=== PATIENT | female | born 1985 | race Caucasian/White ===

== ENCOUNTER → 2022-10-21 | Outpatient (OUT) | payer MEDICAID, SELFPAY ==
[2022-10-22 07:08] LABS: Vitamin D, 25-Hydroxy 67.2 ng/mL (30.0-100.0)
== END ==
LOC: LAB 10:43
PROVIDERS: PCP Family Medicine; Visit Provider Family Medicine
DX: M85.80 Other specified disorders of bone density and structure, unspecified site (principal)
CPT/HCPCS: 36415; 82306

== ENCOUNTER 2022-11-27 07:01 | Outpatient (OUT) | payer MEDICAID, SELFPAY ==
[2022-11-27 15:49] LABS: Valproic Acid 100.8 ug/mL (50.0-100.0)
== END 2022-11-27 07:02 | disposition home or self-care (01) ==
LOC: LAB 07:01
PROVIDERS: PCP Family Medicine; Visit Provider Family Medicine
DX: Z79.899 Other long term (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 (principal)
CPT/HCPCS: 36415; 80164

== ENCOUNTER 2023-08-19 16:03 | Outpatient (OUT) | payer MEDICAID, SELFPAY ==
[2023-08-19 17:09] LABS: Valproic Acid 52.6 ug/mL (50.0-100.0)
[2023-08-21 05:08] LABS: Carbamazepine(Tegretol),S 8.5 ug/mL (4.0-12.0); Lithium (Eskalith(R)), Serum <0.1 mmol/L (0.5-1.2)
== END 2023-08-19 16:04 | disposition home or self-care (01) ==
LOC: LAB 16:04
PROVIDERS: PCP Family Medicine; Visit Provider Family Medicine
DX: R11.2 Nausea with vomiting, unspecified (principal); G40.909 Epilepsy, unspecified, not intractable, without status epilepticus
CPT/HCPCS: 36415; 80156; 80164; 80178

== ENCOUNTER 2023-12-08 06:31 | Outpatient (OUT) | payer MEDICAID, SELFPAY ==
[2023-12-09 07:10] LABS: Carbamazepine(Tegretol),S 6.6 ug/mL (4.0-12.0)
== END 2023-12-08 06:32 | disposition home or self-care (01) ==
LOC: LAB 06:31
PROVIDERS: PCP Family Medicine; Visit Provider Family Medicine
DX: Z79.899 Other long term (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 (principal)
CPT/HCPCS: 36415; 80156

== ENCOUNTER 2023-12-28 06:38 | Outpatient (OUT) | payer MEDICAID, SELFPAY ==
--- OUTSIDE RECORDS SUMMARY | 2023-12-28 06:44 | XMS_ITS | CCD ---
Author Organization [facility] Care Team Providers Care Master Sonar Technician Name Role Phone Rm Goldman DDS Unavailable Vitor ROLON-CAROLE, Mony Unavailable KHRIS, DR BALJIT Whaley Consulting Unavailable PINEDO, DR BALJIT Whaley Primary Care Unavailable PINEDO, DR BALJIT Whaley Admitting Unavailable PINEDO, DR BALJIT Whaley Attending Unavailable PINEDO, DR BALJIT Whaley Consulting Unavailable PINEDO, DR BALJIT Whaley Primary Care Unavailable PINEDO, DR BALJIT Whaley Admitting Unavailable PINEDO, DR BALJIT Whaley Attending Unavailable PINEDO, DR BALJIT Whaley Attending Unavailable PINEDO, DR BALJIT Whaley Consulting Unavailable PINEDO, DR BALJIT Whaley Primary Care Unavailable PINEDO, DR BALJIT Whaley Admitting Unavailable PINEDO, DR BALJIT Whaley Consulting Unavailable PINEDO, DR BALJIT Whaley Primary Care Unavailable PINEDO, DR BALJIT Whaley Admitting Unavailable PINEDO, DR BALJIT Whaley Attending Unavailable PINEDOBALJIT Primary Care Physician Moarmando Mohamad A. Admitting Unavailable Mouchli, Mohamad A. Attending Unavailable Mouchli, Mohamad A. Referring Unavailable Mouchli, Mohamad A. Admitting Unavailable Mouchli, Mohamad A. Attending Unavailable Moarmando, Mohamad A. Referring Unavailable PINEDOBALJIT Admitting Unavailable PINEDOBALJIT Attending Unavailable PINEDO, BALJIT Attending Unavailable PINEDO, BALJIT Admitting Unavailable Mouchli, Mohamad A. Attending Unavailable Rm Goldman DDS Unavailable Vitor ROLON-MACHINE LAY OUT WORKER, Mony Unavailable PROVIDER, UNKNOWN Attending Unavailable PROVIDER, UNKNOWN Admitting Unavailable VÍCTOR GOLDBERG Attending Unavailable PROVIDER, UNKNOWN Admitting Unavailable Allergies Allergy Classification Reported Allergen(s) Allergy Type Date of Onset Reaction(s) Facility (1 source) No Known Medication Allergies; Translations: [No Known Medication Allergies] Propensity to adverse reactions (disorder) [facility] Repository (2 sources) Diazepam; Translations: [DIAZEPAM] Propensity to adverse reactions to drug [address] [place] [address] (2 sources) diphenhydrAMINE; Translations: [DIPHENHYDRAMINE ] Drug Allergy 4 [facility] (2 sources) trichloroacetald ehyde; Translations: [CHLORAL HYDRATE] Drug Allergy [address] [place] [address] Medications Current Medications Medication Drug Class(es) Dates Sig (Normalized) Sig (Original) alendronic acid 35 mg oral tablet (3 sources) Bisphosphonate take 1 tablet by mouth every week alendronate (FOSAMAX) 35 MG tablet Take 35 mg by mouth once weekly. Active busPIRone hydrochloride 15 mg oral tablet (1 source) take 1 tablet by mouth twice daily busPIRone (BUSPAR) 15 MG tablet Take 15 mg by mouth 2 times daily. Active cabergoline 0.5 mg oral tablet (1 source) Ergot Derivative cabergoline (DOSTINEX) 0.5 MG tablet Take 0.5 mg by mouth. Active Calcium Carbonate (6 sources) Start: 09-10-2023 Maalox Antacid Barrier mg, Chewed, Daily, Refills(s) 0 Start Date: 09/10/23 Status: Ordered Oyster Shell 500 MG TABS Take by mouth. Active calcium polycarbophil (3 sources) take 20 [oz_av] by m outh once daily at bedtime Calcium Polycarbophil (FIBER-LAX ORAL) Indications: daily at bedtime with 20 oz of water Take by mouth Indications: daily at bedtime with 20 oz of water. Active take 20 [oz_av] by m outh once daily at bedtime Calcium Polycarbophil (FIBER-LAX ORAL) Indications: daily at bedtime with 20 oz of water Take by mouth Indications: daily at bedtime with 20 oz of water. 0 Active carBAMazepine (4 sources) Mood Stabilizer Start: 09-10-2023 carbamazepine Oral, TID, Refills(s) 0, Seizure Start Date: 09/10/23 Status: Ordered Start: 09-10-2023 carbamazepine Refills(s) 0 Start Date: 09/10/23 Status: Ordered carbamazepine (T EGRETOL) 200 MG tablet Take 100 mg by mouth 3 times daily. Active chlorhexidine gluconate 1.2 mg/ml mouthwash (6 sources) Start: 09-10-2023 take 0.018 g by mouth twice daily chlorhexidine 0.12% mucous membrane liquid 0.018 gm, 15 mL, Oral, BID, 480 mL, Refill(s) 0 Start Date: 09/10/23 Status: Ordered take 15 mL by mouth twice daily chlorhexidine (PERIDEX) 0.12 % oral solution Take 15 mL by mouth 2 times daily. Active chlorproMAZINE hydrochloride 50 mg oral tablet (1 source) Phenothiazine take 50 mg by mouth at bedtime CHLORPROMAZINE HCL ORAL Take 50 mg by mouth at bedtime. Active cholecalciferol 0.025 mg oral tablet (3 sources) Vitamin D Cholecalciferol (VITAMIN D) 1000 units TABS Take by mouth. Active clonazePAM 0.5 mg oral tablet (1 source) Benzodiazepine take 1 tablet by mouth twice daily clonazePAM (KlonoPIN) 0.5 MG tablet Take 0.5 mg by mouth 2 times daily. Active cloNIDine hydrochloride 0.1 mg oral tablet (1 source) Central alpha-2 Adrenergic Agonist take 1 tablet by mouth twice daily cloNIDine (CATAPRES) 0.1 MG tablet Take 0.1 mg by mouth 2 times daily. Active docusate sodium 100 mg oral capsule (3 sources) take 2 capsules by mouth three times daily docusate sodium (COLACE) 100 MG capsule Indications: take 2 capsules by mouth 3 times daily Take 100 mg by mouth Indications: take 2 capsules by mouth 3 times daily. Active doxazosin 4 mg oral tablet (1 source) alpha-Adrenergic Gaby take 1 tablet by mouth once daily doxazosin (CARDURA) 4 MG tablet Take 4 mg by mouth daily. Active famotidine 20 mg oral tablet (11 sources) Histamine-2 Receptor Antagonist Start: take 20 mg by mouth once daily Pepcid 20 mg, Oral, Daily, Refills(s) 0, Control of stomach acid Start Date: 09/10/23 Status: Ordered Start: 09-10-2023 Pepcid Refills (s) 0 Start Date: 09/10/23 Status: Ordered Start: 11-29-2009 famotidine Ref ills(s) 0 Start Date: 11/29/09 Status: Ordered ferrous sulfate (8 sources) Start: 11-29-2009 ferrous sulfat e Oral, Refills(s) 0 Start Date: 11/29/09 Status: Ordered take 1 tablet by mouth once lashell y ferrous sulfate 325 (65 Fe) MG tablet Take 325 mg by mouth daily. Active Fiber (5 sources) Start: 11-29-2009 Fiber Lax Oral , Refills(s) 0 Start Date: 11/29/09 Status: Ordered Start: 11-29-2009 Fiber Lax Refi lls(s) 0 Start Date: 11/29/09 Status: Ordered guanFACINE 1 mg oral tablet (1 source) Central alpha-2 Adrenergic Agonist take 1 tablet by mouth at bedtime guanfacine (TENEX) 1 MG tablet Take 1 mg by mouth at bedtime. Active iloperidone 2 mg oral tablet (1 source) Atypical Antipsychotic Iloperidone (Fanapt) 2 MG TABS Take by mouth. Active lamoTRIgine 100 mg oral tablet (3 sources) Mood Stabilizer, Anti-epileptic Agent take 1 tablet by mouth three times daily lamoTRIgine (LAMICTAL) 100 MG tablet Indications: take one tablet by mouth 3 times daily Take 100 mg by mouth Indications: take one tablet by mouth 3 times daily. Active Levetiracetam (9 sources) Start: 09-10-19 levetiracetam Refills(s) 0 Start Date: 09/10/23 Status: Ordered Start: 11-29-2009 levetiracetam Oral, BID, Refills(s) 0, Seizure Start Date: 11/29/09 Status: Ordered Start: 11-29-2009 levetiracetam Refills(s) 0 Start Date: 11/29/09 Status: Ordered take 1 tablet by erica th twice daily levETIRAcetam (KEPPRA) 500 MG tablet Take 500 mg by mouth 2 times daily. Active levothyroxine sodium 0.075 mg oral tablet (4 sources) l-Thyroxine take 1 tablet by mouth once daily in the evening levothyroxine (SYNTHROID) 75 MCG tablet Take 75 mcg by mouth daily. Take at 8 pm Active take 1 tablet by mouth once lashell y levothyroxine (SYNTHROID) 112 MCG tablet Take 112 mcg by mouth daily. Active linaclotide 0.29 mg oral capsule (6 sources) Guanylate Cyclase-C Agonist Start: 09-10-2023 take 1 ug by mouth once daily Linzess 290 mcg oral capsule mcg cap(s), Oral, Daily, Refills(s) 0 Start Date: 09/10/23 Status: Ordered Start: 10-17-2020 take 1 capsule by [facility] once daily Linzess 145 MCG CAPS capsule Take 145 mcg by mouth daily. 10/17/2020 Active Loratadine (8 sources) Start: 11-29-2009 loratadine 10 mg, Refills(s) 0 Start Date: 11/29/09 Status: Ordered take 1 tablet by mouth once lashell y loratadine (CLARITIN) 10 MG tablet Take 10 mg by mouth daily. Active lurasidone (3 sources) Atypical Antipsychotic Start: 09-10-2023 lurasidone Oral, Daily, Refills(s) 0 Start Date: 09/10/23 Status: Ordered 1 ml medroxyPROGESTERone acetate 150 mg/ml injection (1 source) Progestin medroxyPROGESTER one (Depo-Provera) 150 MG/ML injection Inject 150 mg into the muscle once. Active metoprolol tartrate 100 mg oral tablet (1 source) beta-Adrenergic Gaby take 1 tablet by mouth twice daily metoprolol (LOPRESSOR) 100 MG tablet Take 100 mg by mouth 2 times daily. Active montelukast (6 sources) Leukotriene Receptor Antagonist Start: 09-10-2023 montelukast Daily, Refills(s) 0 Start Date: 09/10/23 Status: Ordered take 1 tablet by mouth once lashell y montelukast (SINGULAIR) 10 MG tablet Take 10 mg by mouth daily. Active Naltrexone (8 sources) Opioid Antagonist Start: 11-29-2009 naltrexone R efills(s) 0 Start Date: 11/29/09 Status: Ordered take 2 tablets by mouth twice da dany naltrexone 50 MG tablet Indications: take 2 tablets twice a day Take 50 mg by mouth daily Indications: take 2 tablets twice a day. Active Zofran (4 sources) Serotonin-3 Receptor Antagonist Start: 09-10-2023 Zofran Refills(s) 0 Start Date: 09/10/23 Status: Ordered take 1 tablet by erica th every twelve hours as needed for nausea ondansetron (Zofran) 4 MG tablet Take 4 mg by mouth every 12 hours as needed for Nausea. Active 24 hr paliperidone 3 mg extended release oral tablet (1 source) Atypical Antipsychotic take 2 tablets by mouth once daily paliperidone (INVEGA) 3 MG 24 hour tablet Take 6 mg by mouth daily. Active pantoprazole 40 mg extended release oral tablet (3 sources) Proton Pump Inhibitor Start: 09-10-19 pantoprazole 40 mg, Oral, Refills(s) 0, Control of stomach acid Start Date: 09/10/23 Status: Ordered Start: 09-10-2023 pantoprazole R efills(s) 0 Start Date: 09/10/23 Status: Ordered pregabalin (6 sources) Start: 09-10-2023 pregabalin Ora l, TID, Refills(s) 0, Neuropathy Start Date: 09/10/23 Status: Ordered Start: 09-10-2023 pregabalin Ora l, Refills(s) 0 Start Date: 09/10/23 Status: Ordered take 1 capsule by mo uth three times daily pregabalin (LYRICA) 75 MG capsule Take 75 mg by mouth 3 times daily. Active Phenergan (3 sources) Phenothiazine Start: 09-10-2023 Phenergan Oral , PRN as needed for nausea/vomiting, Refills(s) 0 Start Date: 09/10/23 Status: Ordered Start: 09-10-2023 Phenergan Refi lls(s) 0 Start Date: 09/10/23 Status: Ordered Risperidone (11 sources) Atypical Antipsychotic Start: 11-29-2009 risperi done Oral, BID, Refills(s) 0 Start Date: 11/29/09 Status: Ordered Start: 11-29-2009 risperidone BI D, Refills(s) 0 Start Date: 11/29/09 Status: Ordered take 1 tablet by erica th twice daily at bedtime risperiDONE (RISPERDAL) 0.5 MG tablet Indications: take one tablet by mouth twice a day at bedtime Take 0.5 mg by mouth 2 times daily Indications: take one tablet by mouth twice a day at bedtime. 1 tab noon and 1 tab hs Active take 1 tablet by erica th three times daily risperiDONE (RISPERDAL) 1 MG tablet Indications: take one tablet by mouth 3 times daily Take 1 mg by mouth 2 times daily Indications: take one tablet by mouth 3 times daily. Active sennosides, MCC (6 sources) Start: 09-10-2023 senna Oral, BI D, Refills(s) 0, Constipation Start Date: 09/10/23 Status: Ordered Start: 09-10-2023 senna Refills( s) 0 Start Date: 09/10/23 Status: Ordered take 1 tablet by erica once daily senna (SENNA-TABS) 8.6 MG TABS tablet Indications: daily at 0800 and 2000 Take 1 Tablet by mouth Indications: daily at 0800 and 1999. Active sertraline 100 mg oral tablet (1 source) Serotonin Reuptake Inhibitor take 1 tablet by mouth once daily sertraline (ZOLOFT) 100 MG tablet Take 100 mg by mouth daily. Active traZODone hydrochloride 100 mg oral tablet (1 source) Serotonin Reuptake Inhibitor take 1 tablet by mouth at bedtime trazodone (DESYREL) 100 MG tablet Take 100 mg by mouth at bedtime. Active Depakote (11 sources) Mood Stabilizer, Anti-epileptic Agent Start: 0 Depakote Oral, BID, Refills(s) 0, Seizure Start Date: 11/29/09 Status: Ordered Start: 11-29-2009 Depakote Oral, TID, Refills(s) 0 Start Date: 11/29/09 Status: Ordered take 2 capsules by m outh once daily in the morning divalproex (DEPAKOTE SPRINKLE) 125 MG CSDR capsule Indications: take 2 capsules by mouth every morning Take 125 mg by mouth Indications: take 2 capsules by mouth every morning. Active take 2 tablets by mo uth twice daily at bedtime divalproex (DEPAKOTE) 500 MG enteric coated tablet Indications: take one tablet in the morning and 2 tablets at bedtime Take 500 mg by mouth 2 times daily Indications: take one tablet in the morning and 2 tablets at bedtime. 1 tab am and 2 tab hs Active VITAMIN D ORAL (3 sources) take 1000 [IU] by mo uth once daily VITAMIN D ORAL Take 1,000 Units by mouth daily. Active take 1000 [IU] by mouth once mackenzie ly VITAMIN D ORAL Take 1,000 Units by mouth daily. 0 Active Vitamin D3 (3 sources) Start: 09-10-2023 Vitamin D3 Ora l, Daily, Refills(s) 0, Prophylaxis Start Date: 09/10/23 Status: Ordered Start: 09-10-2023 Vitamin D3 Ref ills(s) 0 Start Date: 09/10/23 Status: Ordered Problems Active Problems Problem Classification Problem Date Documented Da te Episodic/Chronic Attention-deficit, conduct, and disruptive behavior disorders (5 sources) Disruptive behavior disorder 07-29-2013 Chronic Biliary tract disease (5 sources) Biliary calculus 07-29-2013 Episodic Developmental disorders (5 sources) Severe intellectual disability 07-29-2013 Chronic Disorders of teeth and jaw (7 sources) Dental caries; Translations: [Dental caries, unspecified] Onset: 02-09-2019 10-12-2020 Episodic Disorders usually diagnosed in infancy, childhood, or adolescence (5 sources) Autism spectrum disorder 07-29-2013 Chronic Epilepsy; convulsions (4 sources) Epilepsy, unspecified, not intractable, without status epilepticus; Translations: [EPILEPSY UNS NOT INTRACT W/O SE] Onset: 04-29-2022 Chronic Epilepsy; convulsions (5 sources) Seizure disorder 07-29-2013 Episodic Impulse control disorders, NEC (5 sources) Impulse control disorder 07-29-2013 Chronic Mood disorders (1 source) Bipolar disorder, unspecified; Translations: [BIPOLAR DISORDER UNSPECIFIED] Onset: 05-03-2022 Chronic Nausea and vomiting (1 source) Nausea and vomiting; Translations: [Nausea with vomiting, unspecified] Onset: 09-10-2023 Episodic Open wounds of extremities (4 sources) Unspecified open wound, left foot, initial encounter; Translations: [UNS OPEN WOUND LEFT FOOT INITIAL] Onset: 08-19-2022 Episodic Osteoporosis (5 sources) Osteoporosis 07-29-2013 Chronic Other aftercare (5 sources) Other shelter (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; Translations: [OTH [facility] CURRENT DRUG THERAPY] Onset: 05-03-2022 Episodic Other gastrointestinal disorders (5 sources) Constipation 07-29-2013 Episodic Other gastrointestinal disorders (1 source) Other constipation; Translations: [Other constipation] Onset: 09-10-2023 Episodic Other nutritional; endocrine; and metabolic disorders (1 source) Body mass index 30+ - obesity; Translations: [Body mass index (BMI) 31.0-31.9, adult] 12-26-2023 Chronic Other nutritional; endocrine; and metabolic disorders (1 source) Body mass index (BMI) 31.0-31.9, adult; Translations: [Body mass index (BMI) 31.0-31.9, adult] Onset: 12-25-2023 Chronic Other nutritional; endocrine; and metabolic disorders (1 source) Abnormal weight loss; Translations: [Abnormal weight loss] Onset: 09-10-2023 Episodic Other upper respiratory disease (5 sources) Seasonal allergy 11-29-2009 Chronic Paralysis (8 sources) Spastic cerebral palsy; 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] Onset: 06-17-2002 02-03-2019 Chronic Residual codes; unclassified (1 source) Early satiety; Translations: [Early satiety] Onset: 09-10-2023 Episodic Thyroid disorders (1 source) Hypothyroidism, unspecified; Translations: [HYPOTHYROIDISM UNSPECIFIED] Onset: 09-22-2022 Chronic Unclassified (5 sources) Bipolar (qualifier value) 08-26-2010 Past or Other Problems Problem Classification Problem Date Documented Date Episodic/Chronic Other aftercare (2 sources) Surgical follow-up; Translations: [Encounter for follow-up examination after completed treatment for conditions other than malignant neoplasm] Onset: 10-04-2002 07-22-2022 Episodic Other connective tissue disease (2 sources) Finding of thigh; Translations: [Other specified disorders of muscle] Onset: 12-09-2010 07-22-2022 Episodic Other nervous system disorders (2 sources) Peerless gait; Translations: [Other abnormalities of gait and mobility] Onset: 12-09-2010 07-22-2022 Episodic Results Test Name Value Interpretation Reference Range Facility BASIC METABOLIC PANELon 08-0 Anion gap [Moles/Vol] 13 mmol/L Normal 10-20 [facility] Comment on above: Performed By: #### C H8 #### [facility] [address], [place], Calcium [Mass/Vol] 9.0 mg/dL Normal 8.6-10.3 [facility] Comment on above: Performed By: #### C H8 #### [facility] [address], [place], Chloride [Moles/Vol] 102 mmol/L Normal 98-107 [facility] Comment on above: Performed By: #### C H8 #### [facility] [address], [place], CO2 [Moles/Vol] 23 mmol/L Normal 21-31 [facility] Comment on above: Performed By: #### C H8 #### [facility] [address], [place], Creatinine [Mass/Vol] 0.36 mg/dL Low 0.60-1.20 [facility] Comment on above: Performed By: #### C H8 #### [facility] [address], [place], ESTIMATED GFR (CKD-EPI) 133 mL/min/1.73sqm Normal >=60 [facility] Comment on above: Result Comment: 2020 CKD EPI Equation using Creatinine without Race Comment: Estimated glomerular filtration rate (eGFR) is calculated without a race coefficient. Values should be interpreted in the context of the patient's full clinical presentation. Reference: 1. Yonny C, Rich M, Melissa ATKINSON, et al.. A Unifying Approach for GFR Estimation: Recommendations of the NKF-ASN Task Force on Reassessing the Inclusion of Race in Diagnosing Kidney Disease. [place] Journal of Kidney Diseases 2021;79(2):268-88.e1. 2. N Engl J Med 2020 Vol. 385 Issue 19 Pages [id number] Performed By: #### C H8 #### [facility] [address], [place], Glucose [Mass/Vol] 85 mg/dL Normal 74-109 [facility] Comment on above: Performed By: #### C H8 #### [facility] [address], [place], Potassium [Moles/Vol] 4.4 mmol/L Normal 3.5-5.0 [facility] Comment on above: Performed By: #### C H8 #### [facility] [address], [place], Sodium [Moles/Vol] 134 mmol/L Low 136-145 [facility] Comment on above: Performed By: #### C H8 #### [facility] [address], [place], Urea nitrogen [Mass/Vol] 7 mg/dL Normal 7-25 [facility] Comment on above: Performed By: #### C H8 #### [facility] [address], [place], Basic metabolic 2000 panelon 12-25-2023 Anion gap [Moles/Vol] 13 mmol/L 10 - 20 [facility] Calcium [Mass/Vol] 9.0 mg/dL 8.6 - 10. 3 mg/dL [facility] Chloride [Moles/Vol] 102 mmol/L 98 - 10 7 mmol/L [facility] CO2 [Moles/Vol] 23 mmol/L 21 - 31 mmol/L [facility] Creatinine [Mass/Vol] 0.36 mg/dL Low 0.60 - 1.20 mg/dL [facility] GFR/1.73 sq M.predicted CKD-EPI (S/P/Bld) [Vol rate/Area] 133 - PINF [facility] Comment on above: 2020 CKD EPI Equatio n using Creatinine without Race Comment: Estimated glomerular filtration rate (eGFR) is calculated without a race coefficient. Values should be interpreted in the context of the patient's full clinical presentation. Reference: 1. Yonny C, Rich M, Melissa DC, et al.. A Unifying Approach for GFR Estimation: Recommendations of the NKF-ASN Task Force on Reassessing the Inclusion of Race in Diagnosing Kidney Disease. [place] Journal of Kidney Diseases 2021;79(2):268-88.e1. 2. N Engl J Med 2020 Vol. 385 Issue 19 Pages 6064-3362 Glucose [Mass/Vol] 85 mg/dL 74 - 109 mg/dL [facility] Interpretation and review of laboratory results Abnormal [facility] Potassium [Moles/Vol] 4.4 mmol/L 3.5 - 5.0 mmol/L [facility] Sodium [Moles/Vol] 134 mmol/L Low 136 - 145 mmol/L [facility] Urea nitrogen [Mass/Vol] 7 mg/dL 7 - 25 mg/dL [facility] CBC panel Auto (Bld)on 12-24 Erythrocyte distribution width (RBC) [Ratio] 16.1 % High 11.5 - 14.5 % [facility] Hematocrit (Bld) [Volume fraction] 33.5 % Low 36.0 - 46.0 % [facility] Hemoglobin (Bld) [Mass/Vol] 10.8 g/dL Low 12.0 - 15.0 g/dL [facility] Interpretation and review of laboratory results Abnormal [facility] MCH (RBC) [Entitic mass] 31.1 pg 26. 0 - 34.0 pg [facility] MCHC (RBC) [Mass/Vol] 32.3 g/dL 32.0 - 35.9 g/dL [facility] MCV (RBC) [Entitic vol] 96 fL 80 - 100 fL [facility] Platelet mean volume (Bld) [Entitic vol] 9.3 fL 7.5 - 11.2 fL [facility] Platelets (Bld) [#/Vol] 425 10*3/uL High 150 - 400 K/uL [facility] RBC (Bld) [#/Vol] 3.48 10*6/uL Low [facility] WBC (Bld) [#/Vol] 5.3 10*3/uL 4.5 - 11.5 K/uL [facility] COMPLETE BLOOD COUNTon 12-24 Erythrocyte distribution width (RBC) [Ratio] 16.1 % High 11.5-14.5 [facility] Comment on above: Performed By: #### C BC #### [facility] [address] [place] [address], Hematocrit (Bld) [Volume fraction] 33.5 % Low 36.0-46.0 [facility] Comment on above: Performed By: #### C BC #### [facility] [address] [place] [address], Hemoglobin (Bld) [Mass/Vol] 10.8 g/dL Low 12.0-15.0 [facility] Comment on above: Performed By: #### C BC #### [facility] [address] [place] [address], MCH (RBC) [Entitic mass] 31.1 pg Normal 26.0-34.0 [facility] Comment on above: Performed By: #### C BC #### [facility] [address], [place], MCHC (RBC) [Mass/Vol] 32.3 g/dL Normal 32.0-35.9 [facility] Comment on above: Performed By: #### C BC #### [facility] [address], [place], MCV (RBC) [Entitic vol] 96 fL Normal 80-100 [facility] Comment on above: Performed By: #### C BC #### [facility] [address], [place], Platelet mean volume (Bld) [Entitic vol] 9.3 fL Normal 7.5-11.2 [facility] Comment on above: Performed By: #### C BC #### [facility] [address], [place], Platelets (Bld) [#/Vol] 425 10*3/uL High 150-400 [facility] Comment on above: Performed By: #### C BC #### [facility] [address], [place], RBC (Bld) [#/Vol] 3.48 10*6/uL Low 4.00-5.20 [facility] Comment on above: Performed By: #### C BC #### [facility] [address], [place], WBC (Bld) [#/Vol] 5.3 10*3/uL Normal 4.5-11.5 [facility] Comment on above: Performed By: #### C BC #### [facility] [address], [place], Patient Instructionson 12-24 Bookkeeping Clerk Authentication Interface Message Text On the morning of your surgery, please take only the following medications, with a small sip of water: levothyroxine (SYNTHROID) 112 MCG tablet metoprolol (LOPRESSOR) 100 MG tablet paliperidone (INVEGA) 3 MG 24 hour tablet sertraline (ZOLOFT) 100 MG tablet ondansetron (Zofran) 4 MG tablet-- as needed clonazePAM (KlonoPIN) 0.5 MG tablet cloNIDine (CATAPRES) 0.1 MG tablet doxazosin (CARDURA) 4 MG tablet Iloperidone (Fanapt) 2 MG TABS busPIRone (BUSPAR) 15 MG tablet cabergoline (DOSTINEX) 0.5 MG tablet carbamazepine (TEGRETOL) 200 MG tablet Do not take any Aspirin after 12/30. Do not take any Ibuprofen, Aleve, Advil, or Motrin or any other NSAIDS after 01/03. May take over the counter Acetaminophen (Tylenol) as needed for pain Please hold all Vitamin E, [place] 3, fish oil and herbal supplements for 1 week prior to surgery Please hold Naltrexone 3 days prior to surgery. Last dose on 01/03. Please use this CHECKLIST to prepare for your surgery/procedure: ? Assume that any lab or testing done during your Pre-admission testing appointment is within normal limits unless otherwise contacted. ? Expect a call from [facility] one business day prior to surgery for surgery arrival time and location. ? Please plan to restart your medications the day after surgery unless otherwise explicitly instructed. ? Please contact your surgeon's/proceduralist' s office for any surgical or recovery types of questions. ? CANCELLING YOUR SURGERY/PROCEDURE: If you get a cold, are not feeling well, or become , please call your surgeon's office as soon as possible. ? Refer to your Preparing for Your Surgery/Procedure booklet or [email or web address] if you have questions. Contact the Pre-Admission Testing department at [phone] or your surgeon's office with any questions that are not answered. ? Eating and drinking before surgery: Adult Patients: Per anesthesia's fasting protocol: you may have plain water (no additives) up to 2 hours prior to surgery arrival time. No food or any other type of liquids for at least 8 hours prior to surgery arrival time. A small sip of water with approved morning medications on the day of surgery is acceptable. If a patient with diabetes is concerned about low blood sugar while being NPO, they may have a small sip of clear juice (I.e. apple juice or Gatorade) no later than 2 hours prior to arrival time. Patient needs to alert his or her anesthesiologist if this occurs on the day of surgery. Enhanced Recovery After Surgery (ERAS), bariatric, and endoscopy/colonoscopy patients should follow their surgeon's/proceduralist' s instructions for clear fluids prior to surgery. Pediatric Patients (under the age of 1212 years old): Patients are not to have solid food for 8 hours prior to coming for surgery. Patients can have infant formula or non-human milk (skim, 2%, whole, nut-milks, soy, etc.) 6 hours prior to coming for surgery. Patients can have breast milk up to 4 hours prior to coming for surgery. Patients can have clear liquids (water, flavored whitaker, Pedialyte) up to 2 hours prior to coming for surgery. ON THE DAY OF SURGERY: ? DO bring your ID, insurance card, medication list, and a small amount of bai for filling prescriptions and any medical co-pays. ? Do NOT wear any jewelry, (including rings, earrings, or mouth, tongue, or body piercings). Metal jewelry could cause constriction, amputation, or stafford. Loose or bulky things in your mouth can be unsafe and result in breathing problems. ? DO bring glasses if you wear contacts and other assistance items such as oxygen, inhaler, cane, walker, etc. ? Do NOT bring valuables, credit cards, or large amounts of bai. ? Do NOT wear lotion or strong-smelling fragrance (perfume, cologne, cream or lotion). ? ARRANGE FOR A RIDE: If you are scheduled to go home the same day of surgery, a responsible adult MUST drive or accompany you home in a car, cab, shared ride service, or Metro-van. You will not be allowed to drive yourself home or travel home alone. Your surgery may be cancelled if you do not have a ride. A responsible adult must stay with you after surgery. Please call [facility] if you need transportation assistance or have concerns about going home [phone]. ? PEDIATRIC or ADOLESCENTS: Parents or a legal guardian must remain at the hospital during surgery. You will need to make childcare arrangements for your other small children to remain at home or bring an adult with you who can supervise them in the waiting area while you are with your child. Please bring legal guardianship papers with you if applicable. Patients who whose assigned sex at was female, and are starting puberty, will be tested for per hospital policy. ? SLEEP APNEA PATIENTS: Bring your sleep apnea machine and mask. ? PLEASE BE ON TIME. A late arrival may result (more content not included)... Normal [facility] Progress Noteson 12-10-2023 Bookkeeping Clerk Authentication Interface Message Text Parent/guardian/patient was contacted for PSE AND OR scheduled -- confirmed information with mom, also informed mom importance of receiving PSE call -- if not received surgery will be canceled OR date 01/08/2024 ----- November at 11:39:35 AM ----- ----- Provider: NACHO Edward, Dental-Sounding Device Operator -- Clinic: [facility] ----- Normal [facility] NM Gastric Emptying Studyon 09-27-2023 NM Gastric Emptying Study Exam Date/Time: 09/23/2023 13:59 EDT Reason for Exam: Nausea Report IMPRESSION: NORMAL GASTRIC EMPTYING. EXAM: NM Gastric Emptying Study DATE: 09/23/2023 10:22 AM CLINICAL HISTORY: Nausea. COMPARISON: None available. TECHNIQUE: 25 mCi of technetium 99m sulfur colloid was eaten with 4 oz egg-beaters, 1 slice of toast, 14 oz of jelly, and 120 mL of water. Anterior and posterior planar images were obtained at one half hour, one hour, 2 hours, 3 hours, and 4 hours after ingestion. FINDINGS: Percent gastric retention at 0.5 hours, 1 hour, 2 hours, and 3 hours is: 98%, 7.5%, 30.4%, and 1.5% respectively. 0.5 hr (Lower limit 70%) 1 hr (Lower limit 30%, Upper limit 90%) 2 hr (Upper limit 60%) 3 hr (Upper limit 30%) 4 hr (Upper limit 10%) Ordering Provider: Jessee Nina FINAL REPORT Dictated: 09/27/2023 10:25 am Vinh Hand MD Signed (Electronic Signature): 09/27/2023 10:25 am Signed by: Vinh Hand MD Transcribed by: DIMITRY Technologist: JOSSELIN Technical Comments Dose (mCi Tc99m Sulfur Colloid): 0.8 Dose Administered With: 4 oz egg beaters, 1 slice of toast, 14g of jelly, 120 ml of water Time Frame Required to Ingest the Meal (mins): 10 % Remainin.5 hr (Lower Limit 70%) 98 1.0 hr (Lower Limit 30%, Upper Limit 90%) 73.5 2.0 hr (Upper Limit 60%) 30.4 3.0 hr (Upper Limit 30%) 1.5 [facility] Consent for Treatmenton 05-0 Consent for Treatment [id number] F [facility] IntraOperative Documentson 0 09-18-2023 IntraOperative Documents [id number] F [facility] Progress Note-Physicianon Progress Note-Physician Patient: VEE SOTELO Age: 38 years Sex: Female : 1985 Associated Diagnoses: None Author: Chaim Phillips Jr, DO Preoperative Information Anesthesia Preop Info: Time patient last ate or drank 09/16/2023 00:00:00. Anesthesia history: Patient history: None. Family history+: None. Informed consent: Signed by patient. Re-evaluation prior to induction: Initial evaluation reviewed: No significant change. Review of Systems Eye: Negative except as documented in history of present illness. Ear/Nose/Mouth/Throat: Negative except as documented in history of present illness. Respiratory: Negative except as documented in history of present illness. Cardiovascular: Negative except as documented in history of present illness. Musculoskeletal: Negative except as documented in history of present illness. Neurologic: Negative except as documented in history of present illness. Health Status Allergies: Allergic Reactions (Selected) No Known Medication Allergies Problem list: All Problems Severe mental retardation (I.Q. 20-34) / SNOMED CT 29365472 / Confirmed Seizure disorder / SNOMED CT 472829688 / Confirmed Seasonal allergy / SNOMED CT 3511950270 / Confirmed Pervasive developmental disorder / SNOMED CT 60541469 / Confirmed Osteoporosis / SNOMED CT 274665758 / Confirmed Impulse control disorder / SNOMED CT 401702075 / Confirmed Disruptive behavior disorder / SNOMED CT 47933342 / Confirmed Constipation / SNOMED CT 32410874 / Confirmed Cholelithiasis / SNOMED CT 693134389 / Confirmed Cerebral palsy / SNOMED CT 509213586 / Confirmed Bipolar / SNOMED CT 938978510 / Confirmed Histories Procedure history: No active procedure history items have been selected or recorded. Social History Social & Psychosocial Habits Tobacco 09/10/2023 Tobacco Use: Never (less than 100 in l Smokeless tobacco use: Never . Physical Examination Airway: Mallampati classification: II (soft palate, fauces, uvula visible). Respiratory: adequate air exchange. Cardiovascular: Regular rhythm. Plan [place] [employer] Anesthesiologists (ASA) physical status classification: Class III. Anesthetic Preoperative Plan: Anesthesia General. Normal [facility] Comment on above: Result Comment: Elec tronically Signed By: Chaim Phillips Jr, DO\.br\Date and Time Signed: 09/18/23 08:45 EDT Progress Note-Physician Patient: VEE SOTELO Age: 38 years Sex: Female : 1985 Associated Diagnoses: None Author: Chaim Phillips Jr, DO Postoperative Information Postoperative disposition: Postoperative disposition: To PACU. Optimetrix number: Optimetrix number [phone]. Anesthetic utilized: General. Health Status Allergies: Allergic Reactions (Selected) No Known Medication Allergies Physical Examination Vital Signs 09/16/2023 9:00 EDT Heart Rate Monitored 70 bpm Respiratory Rate Monitored 17 br/min Systolic Blood Pressure 99 mmHg Diastolic Blood Pressure 61 mmHg Blood Pressure Location Right arm Mean Arterial Pressure, Cuff 74 mmHg SpO2 96 % 09/16/2023 8:50 EDT Heart Rate Monitored 72 bpm Respiratory Rate Monitored 12 br/min Systolic Blood Pressure 100 mmHg Diastolic Blood Pressure 68 mmHg Blood Pressure Location Right arm Mean Arterial Pressure, Cuff 79 mmHg SpO2 96 % 09/16/2023 8:45 EDT Heart Rate Monitored 86 bpm Respiratory Rate Monitored 17 br/min Systolic Blood Pressure 98 mmHg Diastolic Blood Pressure 83 mmHg Blood Pressure Location Right arm Mean Arterial Pressure, Cuff 88 mmHg SpO2 97 % 09/16/2023 8:40 EDT Heart Rate Monitored 92 bpm Respiratory Rate Monitored 24 br/min Systolic Blood Pressure 100 mmHg Diastolic Blood Pressure 52 mmHg LOW Blood Pressure Location Right arm Mean Arterial Pressure, Cuff 68 mmHg SpO2 96 % 09/16/2023 8:35 EDT Temperature Temporal Artery 36.7 DegC Heart Rate Monitored 81 bpm Respiratory Rate Monitored 16 br/min Systolic Blood Pressure 93 mmHg Diastolic Blood Pressure 53 mmHg LOW Blood Pressure Location Right arm Mean Arterial Pressure, Cuff 66 mmHg SpO2 94 % Pain Assessment: Controlled. General: Awake, Alert, Appropriate. Respiratory: Adequate air exchange. Cardiovascular: Stable, Normal peripheral perfusion. Neurological: Normal sensory function, Normal motor function. Assessment Anesthetic outcome No anesthetic complications noted. Adequate pain relief. able to void without difficulty, able to ambulate with assist, tolerating PO intake, no N/V. Review / Management Condition: Stable. Plan Transfer/Discharge: Transfer/Discharge Discharge when meets criteria ( To home ). [facility] Comment on above: Result Comment: Elec tronically Signed By: Alan Rebolledo DO, Chaim Whaley\.br\Date and Time Signed: 09/18/23 08:45 EDT Consenton 09-17-2023 Consent [id number] FF [facility] Discharge Instructionson Discharge Instructions [id number] FF [facility] Main OR Intraoperative Recor don 09-17-2023 Main OR Intraoperative Record IntraOp Document Type FT Summary Primary Physician: Jessee Nina MD Finalized Date/Time: 09/17/23 09:56:06 Pt. Name: VEE SOTELO Tawanda Moses/Sex: 1985 Female Med Rec #: [id number] Physician: Jessee Nina MD Financial #: [id number] Pt. Type: O Room/Bed: / Admit/Disch: 09/16/23 07:20:15 - 09/16/23 23:59:59 Institution: Case Times FT Entry 1 Patient Times In Room 09/16/23 08:21:00 Out Room 09/16/23 08:33:00 Procedure Times Start 09/16/23 08:27:00 Stop 09/16/23 08:31:00 Anesthesia Times Start 09/16/23 08:21:00 Stop 09/16/23 08:33:00 Last Modified By: Wenyd Brown RN 09/16/23 08:32:50 General Comments: 09/17/2023 chart opened for charge review per Cyril Mckenna RN. [place] Case Attendance FT Entry 1 Entry 2 Entry 3 Case Attendee James Sidhu CST, Josefa Nina MD, Jessee Cerda Role Performed Anesthesiologist Scrub - Primary Surgeon - Primary Dependency Program Director Time In 09/16/23 08:21:00 09/16/23 08:21:00 09/16/23 08:21:00 Time Out 09/16/23 08:33:00 09/16/23 08:33:00 09/16/23 08:33:00 Procedure EGD(.) EGD(.) EGD(.) Comments Dr. Phillips is supervising Last Modified By: Wendy Brown RN, RN, Wendy Dennis RN 09/16/23 08:32:53 09/16/23 08:32:53 09/16/23 08:32:53 Entry 4 Case Attendee Wendy Brown RN Role Performed Stoneworking Belt Sander - Primary Time In 09/16/23 08:21:00 Time Out 09/16/23 08:33:00 Procedure EGD(.) Comments Last Modified By: Wendy Brown RN 09/16/23 08:32:53 Perioperative Protocols FT Pre-Care Text: Implements protective measures prior to operative or invasive procedure, confirms identity before the operative or invasive procedure, verifies operative procedure, surgical site, and laterality Entry 1 Procedure(s) EGD(.) Patient Identity Birthday, ID Band Verified (select at Check, Patient least 2): Participation Consents / H and P Anesthesia Consent, Operative Site N/A Verified HandP, Surgery/Procedure Marking Verified Consent Surgical Site No Laterality Verified n/a Verified Procedure Verified Yes Correct Patient Yes Position Verified Availability Equipment, Medication Prep Dry n/a Verified (If Applicable) PreOp Antibiotic No Time Out James Sidhu Schafer CST, Kelle Bean MD, Jessee Chester, Wendy Brown RN Time Out Complete 09/16/23 08:25:00 Outcomes Met? Yes Last Modified By: Wendy Brown RN 09/16/23 08:28:44 Post-Care Text: The patient is free from signs and symptoms of injury caused by extraneous objects Allergy Information FT Pre-Care Text: Verifies allergies Entry 1 Allergies Reviewed? Yes Allergies Reviewed Self/Patient With Outcomes Met? Yes Last Modified By: Wendy Brown RN 09/16/23 08:28:56 Post-Care Text: The patient received appropriate medication(s) safely administered during the perioperative period Surgical Procedures FT Entry 1 Procedure Description Procedure EGD Modifiers . Surgeon Description EGD with gastric biopsy and duodenal biopsy. Primary Procedure Yes Primary Surgeon Jessee Nina MD Start 09/16/23 08:27:00 Stop 09/16/23 08:31:00 Anesthesia Type General Surgical Service Gastroenterology Wound Class 2 - Clean-Contaminated Last Modified By: Wendy Brown RN 09/16/23 08:34:37 General Case Data FT Pre-Care Text: Classifies surgical wound, implements aseptic technique, initiates traffic control Entry 1 Case Information OR ENDO 1 FT Case Level Level 2 Wound Class 2 - Clean-Contaminated Specialty Gastroenterology ASA Class 3 Preop Diagnosis Nausea and vominting, Postop Same As Preop No weight loss, early satiety, chronic constipation Postop Diagnosis Irregular z-line, Outcomes Met? Yes fundic gland polyps, gastropathy, gastritis Last Modified By: Wendy Brown RN 09/16/23 08:32:39 Post-Care Text: The patient is free from signs and symptoms of infection Skin Assessment (Pre Procedure) FT Pre-Care Text: Implements protective measures to prevent skin/ tissue injury due to thermal or mechanical sources Evaluates for signs and symptoms of physical injury to skin and tissue Entry 1 Skin Integrity Intact, [place], Warm, and Skin Abnormality No Dry Outcomes Met? Yes Last Modified By: Wendy Brown RN 09/16/23 08:32:59 Post-Care Text: The patient is free from signs and symptoms of injury caused by extraneous objects Patient Positioning FT Pre-Care Text: Identifies physical alterations that require additional precautions for procedure-specific positioning, verifies presence of prosthetics or corrective devices, positions the patient, evaluates the patient for signs and symptoms of injury as a result of positioning Entry 1 Procedure EGD(.) Body Position Lateral, right side up Feet Uncrossed? Yes Left Arm Position Resting at Side Right Arm Position Resting at Side Left Leg Po (more content not included)... Normal [facility] Consent for Treatmenton Consent for Treatment [id number] F [facility] Discharge Instructionson Discharge Instructions VEE SOTELO :1985 Visit Date:09/16/2023 Inpatient Discharge Instructions Your Care Team Admitting Physician - Jessee Nina MD Referring Physician - Jessee Nina MD Reason for Your Visit NAUSEA AND VOMITING, WEIGHT LOSS, EARLY SATIETY, CHRONIC CONSTIPATION Your Diagnosis Benign fundic gland polyps of stomach Gastropathy Tests Performed Pathology Tissue Exam -- Results Pending -- Please visit your patient portal for your results or contact your primary care physician. This Is Your Medications List calcium carbonate (Maalox Antacid Barrier) carbamazepine chlorhexidine topical (chlorhexidine 0.12% mucous membrane liquid) cholecalciferol (Vitamin D3) divalproex sodium (Depakote) famotidine famotidine (Pepcid) ferrous sulfate levetiracetam linaclotide (Linzess 290 mcg oral capsule) loratadine lurasidone montelukast naltrexone ondansetron (Zofran) pantoprazole polycarbophil (Fiber Lax) pregabalin promethazine (Phenergan) risperidone senna Discharge Vitals Temperature (Temporal Artery) 36.7 ?C Heart Rate (Monitored) 81 Respiratory Rate 16 Blood Pressure 93/53 What to do next Instructions From Your Doctor No qualifying data available. New Follow Up Appointments after Discharge Follow Up with Jessee Nina When: Within 1 to 2 weeks Comments: Call for any problems. Where: [address] [place], [place] [email or web address], [address] [place] [address]- [phone] Business (1) Medications What How Much When Instructions Next Dose Unchanged calcium carbonate (Maalox Antacid Barrier) Chewed Every day Unchanged carbamazepine By Mouth 3 times a day Unchanged chlorhexidine topical (chlorhexidine 0.12% mucous membrane liquid) 15 Milliliter By Mouth 2 times a day Unchanged cholecalciferol (Vitamin D3) By Mouth Every day Unchanged divalproex sodium (Depakote) By Mouth 2 times a day Unchanged famotidine Unchanged famotidine (Pepcid) 20 Milligram By Mouth Every day Unchanged ferrous sulfate By Mouth Unchanged levetiracetam By Mouth 2 times a day Unchanged linaclotide (Linzess 290 mcg oral capsule) By Mouth Every day Unchanged loratadine 10 Milligram Unchanged lurasidone By Mouth Every day Unchanged montelukast Every day Unchanged naltrexone Unchanged ondansetron (Zofran) Unchanged pantoprazole 40 Milligram By Mouth Unchanged polycarbophil (Fiber Lax) By Mouth Unchanged pregabalin By Mouth 3 times a day Unchanged promethazine (Phenergan) By Mouth As needed for as needed for nausea/vomiting Unchanged risperidone By Mouth 2 times a day Unchanged senna By Mouth 2 times a day Test Results No qualifying data available. Allergies No Known Medication Allergies Problems Ongoing - Any problem that you are currently receiving treatment for. Bipolar Cerebral palsy Cholelithiasis Constipation Disruptive behavior disorder Impulse control disorder Osteoporosis Pervasive developmental disorder Seasonal allergy Seizure disorder Severe mental retardation (I.Q. 20-34) Education Materials Gastritis, Adult Gastritis is irritation and swelling (inflammation) of the stomach. There are two kinds of gastritis: ? Acute gastritis. This kind develops quickly. ? Chronic gastritis. This kind is much more common. It develops slowly and lasts for a long time. It is important to get help for this condition. If you do not get help, your stomach can bleed, and you can get sores (ulcers) in your stomach. What are the causes? This condition may be caused by: ? Germs that get to your stomach and cause an infection. ? Drinking too much alcohol. ? Medicines you are taking. ? Having too much acid in the stomach. ? Having a disease of the stomach. Other causes may include: ? An allergic reaction. ? Some cancer treatments (radiation). ? Smoking cigarettes or using products that contain nicotine or tobacco. In some cases, the cause of this condition is not known. What increases the risk? ? Having a disease of the intestines. ? Having Crohn's disease. ? Using aspirin or ibuprofen and other NSAIDs to treat other conditions. ? Stress. What are the signs or symptoms? ? Pain in your stomach. ? A burning feeling in your stomach. ? Feeling like you may vomit (nauseous). ? Vomiting or vomiting blood. ? Feeling too full after you eat. ? Weight loss. ? Bad breath. ? Blood in your poop (stool). In some cases, there are no symptoms. How is this treated? This condition is treated with medicines. The medicines that are used depend on what caused the condition. You may be given: ? Antibiotic medicine, if your condition was caused by an infection from germs. ? H2 blockers and similar medicines, if your condition was caused by too much acid in the stomach. Treatment may also include stopping the use of certain medicines, such (more content not included)... Normal [facility] Comment on above: Result Comment: Elec tronically Signed By: Kenyon HERMOSILLO, Stacie\.br\Date and Time Signed: 09/16/23 08:[address] [facility] 09-16-2023 Esophagogastroduodenosco py Patient: VEE SOTELO Age: 38 years Sex: Female : 1985 Associated Diagnoses: None Author: Jessee Nina MD Pre-Procedure Procedure Date 09/16/2023 08:36:00 . Procedure Type: Esophagogastroduodenosco py with biopsy. Procedure provider Performed by Jessee Nina MD. Current history and physical Documented on chart. Informed Consent After discussing the rationale, risks and benefits, and alternatives to this procedure, the patient provided signed consent for the procedure. Pre-procedure diagnosis: anemia. Medications (Selected) Inpatient Medications Ordered Lactated Ringers IV Tessa 1000 mL 1,000 mL: 1,000 mL, IV, 100 mL/hr, Routine, Start date 09/16/23 7:17:00 EDT, 10 hour(s), Total volume (mL): 1,000, 74.3 kg, 1.75, m2 Sodium Chloride 0.9% IV Tessa 1000 mL 1,000 mL: 1,000 mL, IV, 20 mL/hr, Routine, Start date 09/16/23 6:38:00 EDT, 50 hour(s), Total volume (mL): 1,000, 74.3 kg, 1.75, m2 Documented Medications Documented Depakote: Oral, BID, Refills(s) 0, Seizure Fiber Lax: Oral, Refills(s) 0 Linzess 290 mcg oral capsule: mcg cap(s), Oral, Daily, Refills(s) 0 Maalox Antacid Barrier: mg, Chewed, Daily, Refills(s) 0 Pepcid: 20 mg, Oral, Daily, Refills(s) 0, Control of stomach acid Phenergan: Oral, PRN as needed for nausea/vomiting, Refills(s) 0 Vitamin D3: Oral, Daily, Refills(s) 0, Prophylaxis Zofran: Refills(s) 0 carbamazepine: Oral, TID, Refills(s) 0, Seizure chlorhexidine 0.12% mucous membrane liquid: 0.018 gm, 15 mL, Oral, BID, 480 mL, Refill(s) 0 famotidine: Refills(s) 0 ferrous sulfate: Oral, Refills(s) 0 levetiracetam: Oral, BID, Refills(s) 0, Seizure loratadine: 10 mg, Refills(s) 0 lurasidone: Oral, Daily, Refills(s) 0 montelukast: Daily, Refills(s) 0 naltrexone: Refills(s) 0 pantoprazole: 40 mg, Oral, Refills(s) 0, Control of stomach acid pregabalin: Oral, TID, Refills(s) 0, Neuropathy risperidone: Oral, BID, Refills(s) 0 senna: Oral, BID, Refills(s) 0, Constipation Anticoagulant/antiplatel et None. ASA Classification: Class II. . Monitoring: See anesthesia record. . Procedure The procedure was performed in the hospital. See anesthesia record for sedation given during procedure. The patient was positioned starting in the left lateral decubitus position and with safety measures. Endoscope type used was an adult-size, gastroscope, introduced orally, advanced to the 2nd portion of the duodenum. No difficulty was encountered during the procedure. Views were excellent. The patient tolerated the procedure well. Findings Z-line regular at 37 Normal esophagus Erythema in the antrum, moderate and patchy. Otherwise normal stomach. Biopsies of the stomach were taken to rule out H. pylori. Few sessile polyps was glassy appearance consistent with fundic gland polyps Normal duodenum status post biopsies. Images Procedure images: [id number]_ [id number]_[id number]_ [id number] . Post-Procedure Complications: none. Estimated blood loss: minimal. Specimens: sent to pathology. Devices/ implants: none left in place. Impression and Plan irregular Z-line Gastropathy fundic gland polyps Status post biopsies from stomach and duodenum Recommendations: -Resume previous diet -Resume home medications -Await pathology results Normal [facility] Comment on above: Other Comment: Melissa calderón Attachment - attachment storage system not supported [id number] Can be viewed in source system Missing Attachment - attachment storage system not supported [id number] Can be viewed in source system Missing Attachment - attachment storage system not supported [id number] Can be viewed in source system Missing Attachment - attachment storage system not supported [id number] Can be viewed in source system Main OR PACU I Recordon 05-0 Main OR PACU I Record PACU Phase I Docum ent Type FT Summary Primary Physician: Jessee Nina MD Finalized Date/Time: 09/16/23 09:20:05 Pt. Name: DEEPAKVEE/Sex: 1985 Female Med Rec #: [id number] Physician: Jessee Nina MD Financial #: [id number] Pt. Type: O Room/Bed: / Admit/Disch: 09/16/23 07:20:15 - Institution: Case Times PACU I FT Pre-Care Text: Identifies barriers to communication and implements measures to provide psychological support Develops individualized plan of care, and ensures continuity of care Maintains patient's dignity and privacy, and maintains patient confidentiality Identifies and reports philosophical, cultural, and spiritual beliefs and values Identifies individual values and wishes concerning care Implements aseptic technique, and administers prescribed antibiotic therapy and immunizing agents as ordered Evaluates postoperative tissue perfusion Implements thermoregulation measures, and monitors body temperature Evaluates postoperative respiratory status Evaluates postoperative cardiac status Evaluates postoperative neurological status Assesses pain control, collaborated in initiating patient-controlled analgesia and implements alternative methods of pain control Verifies allergies, administers prescribed medications and solutions, evaluates response to medications Entry 1 In PACU I 09/16/23 08:35:00 Discharge from PACU 09/16/23 09:05:00 I Outcomes Met? Yes Last Modified By: Stacie Prescott RN 09/16/23 09:19:48 Post-Care Text: The patient demonstrates knowledge of the expected response to the operative or invasive procedure The patient's care is consistent with the individualized perioperative plan of care The patient's right to privacy is maintained The patient's value system, lifestyle, ethnicity, and culture are considered, respected, and incorporated into the perioperative plan of care The patient participates in decisions affecting his or her perioperative plan of care The patient is free from signs and symptoms of infection The patient has wound/tissue perfusion consistent with or improved from baseline levels established preoperatively The patient is at or returning to normothermia at the conclusion of the immediate postoperative period The patient's respiratory function is consistent with or improved from baseline levels established preoperatively The patient's cardiovascular status is consistent with or improved from baseline levels established preoperatively The patient's cardiovascular status is consistent with or improved from baseline levels established preoperatively The patient demonstrates and/or reports adequate pain control throughout the perioperative period The patient received appropriate medication(s), safely administered during the perioperative period Acuity Level PACU I FT Entry 1 Start Time 09/16/23 08:35:00 Stop Time 09/16/23 09:05:00 Acuity Level Acuity Level I Last Modified By: Stacie Prescott RN 09/16/23 09:20:02 Finalized By: Stacie Prescott RN Document Signatures Signed By: Stacie Prescott RN 09/16/23 09:20 Normal [facility] Main OR Preoperative Recordo n 09-16-2023 Main OR Preoperative Record Holding Area Document Type FT Summary Primary Physician: Jessee Nina MD Finalized Date/Time: 09/16/23 07:37:45 Pt. Name: VETO SOTELOAYLIN Moses/Sex: 1985 Female Med Rec #: [id number] Physician: Jessee Nina MD Financial #: [id number] Pt. Type: O Room/Bed: / Admit/Disch: 09/16/23 07:20:15 - Institution: Case Times Holding FT Pre-Care Text: Verifies consent for planned procedure, identifies individual values and wishes concerning care, includes family members in perioperative teaching Secures patient's records' belongings, and valuables, maintains patient's dignity and privacy, and maintains patient confidentiality Entry 1 In Holding 09/16/23 07:29:00 Outcomes Met? Yes Last Modified By: Vanessa Roy RN 09/16/23 07:29:47 Post-Care Text: The patient participates in decisions affecting his or her perioperative plan of care The patient's right to privacy is maintained Surgery Checklist FT Entry 1 Patient Birthday, ID Band Procedure History and Physical, Identification: Check, Patient Verification: Surgical Consent, With Participation Patient, Other NPO after Midnight: Yes Date/Time: 09/16/23 00:00:00 Personal Items wheelchair, wrap on Limitations: pt has cerebral palsy, Comment: right arm personal wheelchair with patient Complaints of Pain: No Pain Comment: denies Operative Site n/a Marked By: n/a Marking: Availability Equipment Verified: Does Patient Smoke No Patient states Yes Comment - Adult Bill- staff from postop adult Supervision [facility] supervision available Case Cancelled in No Holding Area see comments below for reason Last Modified By: Vanessa Roy RN 09/16/23 07:35:16 General Comments: Caregiver, Bill present with patient from [facility]. /,RN Finalized By: Vanessa Roy RN Document Signatures Signed By: Vanessa Roy RN 09/16/23 07:37 [facility] Monitor Recordon 09-16-2023 Monitor Record [id number] FF [facility] Monitor Record [id number]#[id number] FF [facility] Consent for Procedure/Surger yon 09-11-2023 Consent for Procedure/Surgery [id number] FF [facility] Ambulatory Visit Summaryon 0 09-10-2023 Ambulatory Visit Summary VEE SOTELO :1985 Visit Date:09/10/2023 Ambulatory Visit Instructions Your Diagnosis Nausea and vomiting Weight loss Early satiety Chronic constipation Your Care Team Attending Physician - Kelle RAMIREZ, Jessee Chester Primary Care Physician - BALJIT PINEDO DO This Is Your Medications List Contact prescribing physician if questions or concerns calcium carbonate (Maalox Antacid Barrier) carbamazepine chlorhexidine topical (chlorhexidine 0.12% mucous membrane liquid) cholecalciferol (Vitamin D3) divalproex sodium (Depakote) famotidine famotidine (Pepcid) ferrous sulfate levetiracetam levetiracetam linaclotide (Linzess 290 mcg oral capsule) loratadine lurasidone montelukast naltrexone ondansetron (Zofran) pantoprazole polycarbophil (Fiber Lax) pregabalin promethazine (Phenergan) risperidone senna Discharge Vitals Heart Rate (Peripheral) 91 Respiratory Rate 16 Blood Pressure 113/67 Height 148 cm Height 58 in Weight 74.3 kg Weight 163.46 lb BMI 33.92 What to do next Scheduled Follow-Up Appointments Thursday. 2023 8:00 AM EDT Where: [facility] You Need to Complete the Following NM Gastric Emptying Study, 09/10/23, Routine, Order for Future Visit, Transport Mode: Ambulatory, Reason: Nausea, Nausea and vomiting Invalid Interpretation Code Early satiety [facility] Gastroenterology Office/Clin ic Noteon 09-10-2023 Gastroenterology Office/Clinic Note Chief Complaint nausea/vomiting, constipation, weight loss HPI Staff Patient is a 38 year old female who was referred by [facility] for nausea and vomiting. Intermittent nausea and vomiting poor appetite weight loss Change in BM- linzess 290mcg and senna BID PRN Pantoprazole 40mg Unsure if there has every been colonoscopy/EGD completed History of Present Illness I have reviewed HPI staff note, most recent labs and imaging, more than 30 minutes spent reviewing the chart, during encounter, placing orders and counseling the patient. pt with hx constipation she goes once every 2 days on Linzess she was throwing up and has loose stool all food gives her symptoms x 1 months she lost 20 pounds she is not eating a lot Review of Systems can not obtain due to MR Physical Exam Vitals & Measurements HR: 91(Peripheral) RR: 16 BP: 113/67 HT: 58 in HT: 148 cm WT: 74.3 kg WT: 163.46 lb BMI: 33.92 General: alert, no acute distress HEENT: atraumatic normocephalic Cardiovascular: regular rate and rhythm, normal peripheral perfusion Respiratory: Lungs CTA, respirations non labored Extremities: no deformity, no trauma Abdomen: Benign, soft, nontender nondistended Assessment/Plan 1. Nausea and vomiting (R11.2: Nausea with vomiting, unspecified) Ordered: EGD Endoscopy (Hospital Procedure) NM Gastric Emptying Study 2. Weight loss (R63.4: Abnormal weight loss) Ordered: EGD Endoscopy (Hospital Procedure) NM Gastric Emptying Study 3. Early satiety (R68.81: Early satiety) Ordered: EGD Endoscopy (Hospital Procedure) NM Gastric Emptying Study 4. Chronic constipation (K59.09: Other constipation) Ordered: EGD Endoscopy (Hospital Procedure) NM Gastric Emptying Study Continue Linzess and senna Continue PPI and Zofran Schedule upper endoscopy with small bowel biopsies to evaluate nausea, vomiting, and weight loss Schedule gastric emptying test to rule out gastroparesis Defer colonoscopy for now given her history of MR Might benefit from adding another agent such as prucalopride if constipation gets worse Follow-up No qualifying data available Problem List/Past Medical History Ongoing Bipolar Cerebral palsy Cholelithiasis Constipation Disruptive behavior disorder Impulse control disorder Osteoporosis Pervasive developmental disorder Seasonal allergy Seizure disorder Severe mental retardation (I.Q. 20-34) Historical No qualifying data Medications carbamazepine chlorhexidine 0.12% mucous membrane liquid, 0.018 gm= 15 mL, Oral, BID Depakote, Oral, TID famotidine ferrous sulfate, Oral Fiber Lax levetiracetam levetiracetam Linzess 290 mcg oral capsule, Oral, Daily loratadine, 10 mg lurasidone, Oral, Daily Maalox Antacid Barrier, Chewed, Daily montelukast, Daily naltrexone pantoprazole Pepcid Phenergan pregabalin, Oral risperidone, BID senna Vitamin D3 Zofran Allergies No Known Medication Allergies Social History Tobacco Never (less than 100 in lifetime) Tobacco Use:. Never Smokeless Tobacco Use:., 09/10/2023 Family History Unable to obtain family history Immunizations Vaccine Date Status Comments influenza virus vaccine, inactivated 03/04/2023 Recorded diphtheria/pertussis, acel/tetanus adult 08/14/2022 Recorded SARS-CoV-2 (COVID-19) [id number] 08/14/2022 Recorded influenza virus vaccine, inactivated 03/05/2022 Recorded SARS-CoV-2 (COVID-19) [id number] 03/05/2022 Recorded 2023-09-09: TPVALL influenza virus vaccine, inactivated 03/13/2021 Recorded SARS-CoV-2 (COVID-19) mRNA BNT-162b2 vax 03/13/2021 Recorded 2023-09-09: TPV3 SARS-CoV-2 (COVID-19) mRNA BNT-162b2 vax 06/19/2020 Recorded 2023-09-09: TPVAL SARS-CoV-2 (COVID-19) mRNA BNT-162b2 vax 05/29/2020 Recorded 2023-09-09: TPVAL influenza virus vaccine, inactivated 02/22/2020 Recorded influenza virus vaccine, inactivated 03/11/2019 Recorded influenza virus vaccine, inactivated 02/24/2018 Recorded influenza virus vaccine, inactivated 03/11/2017 Recorded influenza virus vaccine, inactivated 02/20/2016 Recorded influenza virus vaccine, inactivated 03/08/2015 Recorded influenza virus vaccine, inactivated 03/23/2014 Recorded influenza virus vaccine, inactivated 03/15/2013 Recorded diphtheria/pertussis, acel/tetanus adult 08/31/2012 Recorded influenza virus vaccine, inactivated 03/10/2012 Recorded influenza virus vaccine, inactivated 01/29/2011 Recorded influenza, whole 03/13/2010 Recorded influenza, whole 03/09/2008 Recorded meningococcal conjugate vaccine 10/01/2006 Recorded Td(adult) unspecified formulation 09/02/2000 Recorded Hib, unspecified formulation 07/02/1987 Recorded measles/mumps/rubella virus vaccine 11/15/[address] [facility] Comment on above: Result Comment: Elec tronically Signed By: Kelle RAMIREZ, Jessee Andrade.br\Date and Time Signed: 09/10/23 09:40 EDT Long-Term Recordson 09-09 Long-Term Records [id number] F Normal [facility] CBC w/Indiceson 04-01-2023 Erythrocyte distribution width (RBC) [Ratio] 15.4 % High 10.9-14.2 [facility] Comment on above: Performed By: #### 2 066388, 1243071, 3961049, 9687955, 3313632, 9577301, 6959592, 18942827, 1737594, 7267328 ####[facility] [address] [place] [address] Hematocrit (Bld) [Volume fraction] 37.4 % Normal 34.0-46.0 [facility] Comment on above: Performed By: #### 2 865156, 6083267, 5988781, 2159310, 0995002, 8126633, 1694756, 55963841, 7221620, 2557455 ####[facility] [address] [place] [address] Hemoglobin (Bld) [Mass/Vol] 12.1 g/dL Normal 12.0-16.0 [facility] Comment on above: Performed By: #### 2 277699, 2152238, 7517011, 3285886, 5039190, 9349547, 6223524, 47411417, 0630525, 4418601 ####[facility] [address] [place] [address] MCH (RBC) [Entitic mass] 30.9 pg Normal 27.0-34.0 [facility] Comment on above: Performed By: #### 2 791301, 3657137, 1093014, 5250186, 0739972, 4345239, 0941157, 25034737, 6826002, 4727528 ####[facility] [address] [place] [address] MCHC (RBC) [Mass/Vol] 32.4 g/dL Normal 31.4-36.0 [facility] Comment on above: Performed By: #### 2 167663, 2008725, 8332428, 9334229, 1982884, 7099552, 9221733, 16141442, 0726621, 3264945 ####[facility] [address] [place] [address] MCV (RBC) [Entitic vol] 95.6 fL Normal 80.0-100.0 [facility] Comment on above: Performed By: #### 2 687945, 4382543, 8119051, 4768304, 6557132, 4308046, 4148747, 59321340, 2483731, 7072507 ####[facility] [address] [place] [address] Platelet mean volume (Bld) [Entitic vol] 12.2 fL High 6.4-10.8 [facility] Comment on above: Performed By: #### 2 376067, 4821907, 6544692, 3434573, 6936419, 0187855, 0930731, 38854297, 7402527, 3940745 ####[facility] [address] [place] [address] Platelets (Bld) [#/Vol] 309.0 E9/L Normal 150. 0-500. 0 [facility] Comment on above: Performed By: #### 2 747424, 0838682, 4169851, 0970984, 1479868, 9146164, 9217531, 68550791, 7099471, 5353791 ####[facility] [address] [place] [address] RBC (Bld) [#/Vol] 3.9 E12/L Low 4.3-5.9 [facility] Comment on above: Performed By: #### 2 385559, 7680180, 0646355, 2795581, 0131033, 1369999, 5783819, 35454323, 3703140, 6653937 ####[facility] [address] [place] [address] WBC corrected for nucl RBC Auto (Bld) [#/Vol] 6.5 E9/L Normal 4.0-11.0 [facility] Comment on above: Performed By: #### 2 871319, 0390082, 8042353, 7759130, 4275394, 2516073, 5821914, 53207242, 7676160, 9298271 ####[facility] [address] [place] [address] CHEMISTRYOrdered By: SYSTEM SYSTEM on 04-01-2023 Albumin [Mass/Vol] 3.7 g/dL Normal 3.3 - 5.0 gm/dL [facility] Albumin/Globulin [Mass ratio] 1.2 {ratio} Normal 1.1 - 2.2 [facility] ALP [Catalytic activity/Vol] 32 [iU]/d Normal 21 - 98 Int._Unit/ L [facility] ALT No additional P-5'-P [Catalytic activity/Vol] 24 [iU]/d Normal 6 - 46 Int._Unit/ L [facility] Anion gap [Moles/Vol] 13 mmol/L Normal 6 - 16 mEq/L [facility] AST [Catalytic activity/Vol] 28 [iU]/d Normal 5 - 43 Int._Unit/ L [facility] Bilirubin [Mass/Vol] 0.1 mg/dL Normal 0.0 - 1 .1 mg/dL [facility] Calcium [Mass/Vol] 8.9 mg/dL Normal 8.9 - 11. 1 mg/dL [facility] carBAMazepine [Mass/Vol] 4.4 microgram/mL Normal 4.0 - 12.0 mcg/mL [facility] Chloride [Moles/Vol] 98 mmol/L Low 101 - 1 11 mmol/L [facility] CO2 [Moles/Vol] 24 mmol/L Normal 21 - 31 mmol/L [facility] Cobalamin (Vitamin B12) [Mass/Vol] 305 pg/mL Normal 50 - 1500 pg/mL [facility] Creatinine [Mass/Vol] 0.5 mg/dL Normal 0.5 - 1.3 mg/dL [facility] Ferritin [Mass/Vol] 39 ng/mL Normal 11 - 307 ng/mL [facility] Comment on above: Interpretive Data: N ORMALS MEN <30 YRS 16-132 ng/mL MEN >30 YRS 8-338 ng/mL WOMEN (PREMEN) 6-104 ng/mL WOMEN (POSTMEN) 12-210 ng/mL Free T4 [Mass/Vol] 0.97 ng/dL Normal 0.58 - 1.64 ng/dL [facility] GFR/1.73 sq M.predicted among non-blacks MDRD (S/P/Bld) [Vol rate/Area] 124 mL/min/1.73 m2 Normal >=59mL/min /1.73 m2 [facility] Comment on above: Interpretive Data: C hronic kidney disease could be indicated at eGFR's of less than 60 mL/min/1.73m2. Kidney failure is indicated at less than 15 mL/min/1.73m2. Globulin (S) [Mass/Vol] 3.2 g/dL Normal 1.4 - 4.0 gm/dL [facility] Glucose [Mass/Vol] 86 mg/dL Normal 55 - 199 mg/dL [facility] Comment on above: Interpretive Data: I f this glucose result represents a fasting glucose, interpretation should refer to the following reference range: 55-99 mg/dL Iron [Mass/Vol] 130 ug/dL Normal 35 - 153 mcg/dL [facility] Potassium [Moles/Vol] 4.3 mmol/L Normal 3.5 - 5.3 mmol/L [facility] Protein [Mass/Vol] 6.9 g/dL Normal 6.0 - 7.8 gm/dL [facility] Sodium [Moles/Vol] 131 mmol/L Low 135 - 145 mmol/L [facility] TSH Qn 0.96 m[IU]/L Normal 0.34 - 5.60 mcIU/mL [facility] Urea nitrogen [Mass/Vol] 8 mg/dL Normal 5 - 21 mg/dL [facility] Urea nitrogen/Creatinine [Mass ratio] 16 mg/mg Normal 10 - 20 [facility] Valproate [Moles/Vol] 59 microgram/mL Normal 50 - 99 mcg/mL [facility] CMPon 04-01-2023 Albumin [Mass/Vol] 3.7 g/dL Normal 3.3-5.0 [facility] Comment on above: Performed By: #### 2 712046, 1220919, 3720622, 6351145, 7125023, 1564515, 1525001, 66563904, 9515297, 3437995 ####[facility] [address] [place] [address] Albumin/Globulin (S) [Mass conc ratio] 1.2 Normal 1.1-2.2 [facility] Comment on above: Performed By: #### 2 767437, 1703675, 8413024, 0144802, 3510347, 2013295, 3544229, 33946126, 1138843, 7478249 ####[facility] [address] [place] [address] ALP [Catalytic activity/Vol] 32 Int._Unit/L Normal 21-98 [facility] Comment on above: Performed By: #### 2 592151, 9283306, 7392586, 8643371, 4975361, 9744112, 9734018, 44668871, 4102205, 7740981 ####[address] [place] [address] ALT No additional P-5'-P [Catalytic activity/Vol] 24 Int._Unit/L Normal 6-46 [facility] Comment on above: Performed By: #### 2 651718, 5678381, 5338122, 7571005, 8328655, 9688919, 8333672, 69119179, 7189241, 2050380 ####[address] [place] [address] Anion gap [Moles/Vol] 13 mmol/L Normal 6-16 [facility] Comment on above: Performed By: #### 2 793503, 1897090, 2075581, 2375765, 5655277, 7495094, 7993653, 34879174, 7852531, 7275564 ####[address] [place] [address] AST [Catalytic activity/Vol] 28 Int._Unit/L Normal 5-43 [facility] Comment on above: Performed By: #### 2 048442, 3298649, 5621703, 7505767, 2584847, 0134759, 3225145, 93910035, 5869635, 8386415 ####[facility] [address] [place] [address] Bilirubin [Mass/Vol] 0.1 mg/dL Normal 0.0-1.1 [facility] Comment on above: Performed By: #### 2 681254, 9606211, 4678492, 2600393, 3013720, 2982090, 5743349, 38137656, 2482355, 6267917 ####[facility] [address] [place] [address] Calcium [Mass/Vol] 8.9 mg/dL Normal 8.9-11.1 [facility] Comment on above: Performed By: #### 2 402507, 8737752, 8306475, 0912580, 9414156, 5191422, 8927371, 14320963, 2967366, 9592824 ####[facility] [address] [place] [address] Chloride [Moles/Vol] 98 mmol/L Low 101-111 [facility] Comment on above: Performed By: #### 2 338831, 0415793, 2604165, 3055425, 5469721, 5570749, 6277560, 02855152, 7230560, 6631565 ####[facility] [address] [place] [address] CO2 [Moles/Vol] 24 mmol/L Normal 21-31 [facility] Comment on above: Performed By: #### 2 255766, 8168404, 9845500, 6795977, 7129839, 3376289, 7764225, 54667199, 3482853, 5222770 ####[facility] [address] [place] [address] Creatinine [Mass/Vol] 0.5 mg/dL Normal 0.5-1.3 [facility] Comment on above: Performed By: #### 2 330656, 1925649, 7504324, 8904507, 6929586, 7378279, 8597846, 83883623, 4969346, 1178643 ####[facility] [address] [place] [address] Globulin (S) [Mass/Vol] 3.2 g/dL Normal 1.4-4.0 F [facility] Comment on above: Performed By: #### 2 498237, 9548870, 6269937, 5016342, 9042606, 8530227, 7419234, 28574780, 0474999, 6365739 ####[facility] [address] [place] [address] Glucose [Mass/Vol] 86 mg/dL Normal 55-199 [facility] Comment on above: Result Comment: If t his glucose result represents a fasting glucose, interpretation should refer to the following reference range: 55-99 mg/dL Performed By: #### 2 974828, 9154111, 2248220, 2612814, 3833768, 8495153, 8035119, 69006264, 3325316, 7180097 ####[facility] [address] [place] [address] Potassium [Moles/Vol] 4.3 mmol/L Normal 3.5-5.3 [facility] Comment on above: Performed By: #### 2 710912, 6226226, 7529096, 4480212, 2538105, 2677633, 5403061, 83022423, 7401501, 2811677 ####[facility] [address] [place] [address] Protein [Mass/Vol] 6.9 g/dL Normal 6.0-7.8 [facility] Comment on above: Performed By: #### 2 575705, 2772026, 6966048, 4633277, 1226215, 3492438, 6976542, 20951189, 9763954, 8108556 ####[facility] [address] [place] [address] Sodium [Moles/Vol] 131 mmol/L Low 135-145 [facility] Comment on above: Performed By: #### 2 663952, 9956684, 2385243, 2093289, 5386606, 4373626, 9094557, 17756957, 1863863, 7022210 ####[facility] [address] [place] [address] Urea nitrogen [Mass/Vol] 8 mg/dL Normal 5-21 [facility] Comment on above: Performed By: #### 2 257690, 3643770, 6176597, 7356524, 4645206, 4600659, 4543764, 55608303, 7905184, 9705832 ####[facility] [address] [place] [address] Urea nitrogen/Creatinine [Mass ratio] 16 No Units Normal 10-20 [facility] Comment on above: Performed By: #### 2 495136, 1188127, 0654376, 7676949, 7501069, 2149296, 9960240, 05542705, 7218458, 5752018 ####[facility] [address] [place] [address] Carbamazepineon 04-01-2023 carBAMazepine [Mass/Vol] 4.4 microgram/mL Normal 4.0-1 2.0 [facility] Comment on above: Performed By: #### 2 145319, 0067620, 6994224, 2335236, 2286365, 6642212, 5262297, 12522868, 2049819, 4068736 ####[facility] [address] [place] [address] Ferritinon 04-01-2023 Ferritin [Mass/Vol] 39 ng/mL Normal 11-307 [facility] Comment on above: Result Comment: NORM ALS MEN <30 YRS 16-132 ng/mL MEN >30 YRS 8-338 ng/mL WOMEN (PREMEN) 6-104 ng/mL WOMEN (POSTMEN) 12-210 ng/mL Performed By: #### 2 806743, 9581915, 1590868, 7566367, 7712114, 6866763, 8692547, 17275916, 3151460, 0936599 ####[facility] [address] [place] [address] Free T4on 04-01-2023 Free T4 [Mass/Vol] 0.97 ng/dL Normal 0.58-1.64 [facility] Comment on above: Performed By: #### 2 325607, 2795306, 1221561, 0928932, 0971948, 7407351, 2185980, 74712482, 1245511, 5673605 ####[facility] [address] [place] [address] HEMATOLOGYOrdered By: Graciela Carey on 04-01-2023 Erythrocyte distribution width (RBC) [Ratio] 15.4 % High 10.9 - 14.2 % [facility] HemeAutoSS Hematocrit (Bld) [Volume fraction] 37.4 % Normal 34.0 - 46.0 % [facility] HemeAutoSS Hemoglobin (Bld) [Mass/Vol] 12.1 g/dL Normal 12.0 - 16.0 gm/dL [facility] HemeAutoSS MCH (RBC) [Entitic mass] 30.9 pg Normal 27. 0 - 34.0 pg [facility] HemeAutoSS MCHC (RBC) [Mass/Vol] 32.4 g/dL Normal 31.4 - 36.0 gm/dL [facility] MCV (RBC) [Entitic vol] 95.6 fL Normal 80.0 - 100.0 fL [facility] Platelet mean volume (Bld) [Entitic vol] 12.2 fL High 6.4 - 10.8 fL [facility] Platelets (Bld) [#/Vol] 309.0 E9/L Normal 150. 0 - 500.0 E9/L [facility] RBC (Bld) [#/Vol] 3.9 E12/L Low 4.3 - 5.9 E12/L [facility] WBC corrected for nucl RBC Auto (Bld) [#/Vol] 6.5 E9/L Normal 4.0 - 11.0 E9/L [facility] Ironon 04-01-2023 Iron [Mass/Vol] 130 microgram/dL Normal 35-153 [facility] Comment on above: Performed By: #### 2 [id number], [id number], [id number], [id number], 3488231, 2487064, 5260084, [id number], 8003586, [id number] ####[facility] [address] [place] [address] Physician Orderon 04-01-2023 Physician Order [id number] FF Normal [facility] TSHon 04-01-2023 TSH Qn 0.96 m[IU]/L Normal 0.34-5.60 [facility] Comment on above: Performed By: #### 2 [id number], [id number], 1151007, [id number], 3285584, 8837966, 0528123, [id number], 8795149, [id number] ####[facility] [address] [place] [address] Valproic Acidon 04-01-2023 Valproate [Moles/Vol] 59 microgram/mL Normal 50-99 [facility] Comment on above: Performed By: #### 2 [id number], [id number], 1615546, 4056051, 2934965, 5182338, 8153017, [id number], 9246345, 3566215 ####[facility] [address] [place] [address] Vit B12on 04-01-2023 Cobalamin (Vitamin B12) [Mass/Vol] 305 pg/mL Normal 50-1500 [facility] Comment on above: Performed By: #### 2 [id number], [id number], 5312012, 1310837, 7395592, 1594862, 6483019, 01701992, 7805505, 1531396 ####[facility] [address] [place] [address] eGFRon 04-01-2023 GFR/1.73 sq M.predicted among non-blacks MDRD (S/P/Bld) [Vol rate/Area] 124 mL/min/1.73 m2 Normal >=59 [facility] Comment on above: Order Comment: Order added by Discern Expert. Result Comment: Boat Puller tamara kidney disease could be indicated at eGFR's of less than 60 mL/min/1.73m2. Kidney failure is indicated at less than 15 mL/min/1.73m2. Performed By: #### 2 [id number], 8734140, 5048659, 5324684, 6256620, 9565422, 6884822, [id number], 2243268, 6197914 ####[facility] [address] [place] [address] CHEMISTRYOrdered By: SYSTEM SYSTEM on 01-14-2023 Valproate [Moles/Vol] 82 microgram/mL Normal 50 - 99 mcg/mL [facility] Remisol Physician Orderon 01-14-2023 Physician Order [id number]#[id number]: 127 Normal [facility] Valproic Acidon 01-14-2023 Valproate [Moles/Vol] 82 microgram/mL Normal 50-99 [facility] Comment on above: Performed By: #### 2 [id number] ####[facility] [address] [place] [address] XR DEXA BONE DENSITYon 10-01 XR DEXA BONE DENSITY EXAMINATION: XR DEX A BONE DENSITY, 10/01/2022 9:46 AM EDT HISTORY: Osteopenia COMPARISON: DEXA bone densitometry 09/17/2020 TECHNIQUE: Dual-energy X-ray absorptiometry (DEXA) bone density study performed for the axial skeleton. FINDINGS: SPINE ANALYSIS: Average bone mineral density is 1.324 g/cm2. T-score (standard deviation relative to young adult mean): 1.2 . -0.6% change since prior study. HIP ANALYSIS: Lowest bone mineral density is within the left femur, 0.799 g/cm2. T-score (standard deviation relative to young adult mean): -1.7 . -2.1% change since prior study. IMPRESSION: [employer] Classification: Osteopenia - Moderate Fracture Risk Electronically authenticated by: SANDY RAMIREZ Date: 2022-10-01 11:02 Normal [facility] CBC AUTO DIFFon 09-16-2022 BASO # 0.0 103/ul Normal 0.0-0.1 [facility] Comment on above: Performed By: #### C BC #### [facility] Laboratory [address] [place] [address] Dr. Chong Agarwal Basophils/100 WBC (Bld) 0.3 % Normal 0.2-2.0 [facility] Comment on above: Performed By: #### C BC #### [facility] [address] [place] [address] Dr. Chong Agarwal EO # 0.0 103/ul Normal 0.0-0.7 [facility] Comment on above: Performed By: #### C BC #### [facility] [address] [place] [address] Dr. Chong Agarwal Eosinophils/100 WBC (Bld) 0.4 % Critically low 0.9-7.0 [facility] Comment on above: Performed By: #### C BC #### [facility] [address] [place] [address] Dr. Chong Agarwal Erythrocyte distribution width (RBC) [Ratio] 14.6 % Normal 11.0-15.0 [facility] Comment on above: Performed By: #### C BC #### [facility] [address] [place] [address] Dr. Chong Agarwal Hematocrit (Bld) [Volume fraction] 37.6 % Normal 36.0-48.0 [facility] Comment on above: Performed By: #### C BC #### [facility] [address] [place] [address] Dr. Chong Agarwal Hemoglobin (Bld) [Mass/Vol] 12.2 g/dL Normal 12.0-16.0 [facility] Comment on above: Performed By: #### C BC #### [facility] [address] [place] [address] Dr. Chong Agarwal IG # 0.02 10e3/ul Normal 0.00-0.03 [facility] Comment on above: Performed By: #### C BC #### [facility] [address] [place] [address] Dr. Chong Agarwal IG % 0.3 % Normal 0.0-0.5 [facility] Comment on above: Performed By: #### C BC #### [facility] [address] [address] [address] Chong Agarwal LYMPH # 2.4 103/ul Normal 1.2-3.8 [facility] Comment on above: Performed By: #### C BC #### [facility] [address] [address] [address] Chong Agarwal Lymphocytes/100 WBC (Bld) 34.6 % Normal 20.5-60.0 [facility] Comment on above: Performed By: #### C BC #### [facility] [address] [place] [address] Dr. Chong Agarwal MANUAL DIFF REQ NO Normal [facility] Comment on above: Performed By: #### C BC #### [facility] [address] [place] [address] Dr. Chong Agarwal MCH (RBC) [Entitic mass] 31.4 pg Normal 26.7-34.0 [facility] Comment on above: Performed By: #### C BC #### [facility] [address] [place] [address] Dr. Chong Agarwal MCHC (RBC) [Mass/Vol] 32.4 g/dL Normal 29.9-35.2 [facility] Comment on above: Performed By: #### C BC #### [facility] [address] [place] [address] Dr. Chong Agarwal MCV (RBC) [Entitic vol] 96.7 fL Normal 81.0-99.0 [facility] Comment on above: Performed By: #### C BC #### [facility] [address] [place] [address] Dr. Chong Agarwal MONO # 0.7 103/ul Normal 0.3-0.8 [facility] Comment on above: Performed By: #### C BC #### [facility] [address] [place] [address] Dr. Chong Agarwal Monocytes/100 WBC (Bld) 10.2 % Normal 1.7-12.0 [facility] Comment on above: Performed By: #### C BC #### [facility] [address] [address] [address] Chong Agarwal NEUT # 3.8 103/ul Normal 1.4-6.5 [facility] Comment on above: Performed By: #### C BC #### [facility] [address] [address] [address] Chong Agarwal Neutrophils/100 WBC (Bld) 54.2 % Normal 43.0-75.0 [facility] Comment on above: Performed By: #### C BC #### [facility] [address] [place] [address] Dr. Chong Agarwal Platelet mean volume (Bld) [Entitic vol] 11.0 fL Normal 9.5-13.5 [facility] Comment on above: Performed By: #### C BC #### [facility] [address] [place] [address] Dr. Chong Agrawal PLT 290 103/ul Normal 150-450 [facility] Comment on above: Performed By: #### C BC #### [facility] [address] [place] [address] Dr. Chong Agarwal RBC 3.89 106/ul Critically low 4.20-5.40 [facility] Comment on above: Performed By: #### C BC #### [facility] [address] [place] [address] Dr. Chong Agarwal WBC 7.0 103/ul Normal 4.0-11.0 [facility] Comment on above: Performed By: #### C BC #### [facility] [address] [place] [address] Dr. Chong Agarwal FREE T3on 09-16-2022 FREE T3 2.11 pg/mlL Critically low 2.18-3.98 [facility] Comment on above: Performed By: #### T SH, CMP, LIPID, FT3 #### [facility] [address] [place] [address] Dr. Chong Agarwal FREE T4on 09-16-2022 Free T4 [Mass/Vol] 1.25 ng/dL Normal 0.76-1.46 [facility] Comment on above: Performed By: #### F T4, VITB12 #### [facility] [address] [address] [address] Chong Agarwal LIPID PROFILEon 09-16-2022 CHOL-HDL RATIO NORM SEE BELOW Normal [facility] Comment on above: Result Comment: 3.3 - 4.4 LOW RISK 4.4 - 7.1 AVERAGE RISK 7.1 - 11.0 MODERATE RISK >11.0 HIGH RISK Performed By: #### T SH, CMP, LIPID, FT3 #### [facility] [address] [address] [address] Chong Agarwal Cholesterol [Mass/Vol] 144 mg/dL Normal <=200 [facility] Comment on above: Performed By: #### T SH, CMP, LIPID, FT3 #### [facility] [address] [address] [address] Chong Agarwal Cholesterol in HDL [Mass/Vol] 49 mg/dL Normal 40-60 [facility] Comment on above: Performed By: #### T SH, CMP, LIPID, FT3 #### [facility] [address] [address] [address] Chong Agarwal Cholesterol in LDL [Mass/Vol] 78.0 mg/dL Normal [facility] Comment on above: Performed By: #### T SH, CMP, LIPID, FT3 #### [facility] [address] [address] [address] Chong Agarwal Cholesterol.total/Choles terol in HDL [Mass ratio] 2.9 {ratio} Normal [facility] Comment on above: Performed By: #### T SH, CMP, LIPID, FT3 #### [facility] [address] [address] [address] Chong Agarwal HDL NORMAL > or = 60 mg/dl - LO W CARDIOVASCULAR RISK <40 mg/dl - HIGH CARDIOVASCULAR RISK Normal [facility] Comment on above: Performed By: #### T SH, CMP, LIPID, FT3 #### [facility] [address] [place] [address] Dr. Chong Agarwal LDL CALC NORMAL SEE BELOW Normal [facility] Comment on above: Result Comment: <100 mg/dl OPTIMAL 100 - 129 mg/dl NEAR OR ABOVE OPTIMAL 130 - 159 mg/dl BORDERLINE HIGH 160 - 189 mg/dl HIGH >190 mg/dl VERY HIGH Performed By: #### T SH, CMP, LIPID, FT3 #### [facility] [address] [address] [address] Chong Agarwal Triglyceride [Mass/Vol] 85 mg/dL Normal <=150 [facility] Comment on above: Performed By: #### T SH, CMP, LIPID, FT3 #### [facility] [address] [address] [address] Chong Agarwal VLDL CALC 17.0 mg/dL Normal [facility] Comment on above: Performed By: #### T SH, CMP, LIPID, FT3 #### [facility] [address] [address] [address] Chong Agarwal PROF 14(COMP METB)on 023 Albumin [Mass/Vol] 3.5 g/dL Normal 3.4-5.0 [facility] Comment on above: Performed By: #### T SH, CMP, LIPID, FT3 #### [facility] [address] [address] [address] Chong Agarwal Albumin/Globulin [Mass ratio] 0.9 {ratio} Normal [facility] Comment on above: Performed By: #### T SH, CMP, LIPID, FT3 #### [facility] [address] [address] [address] Chong Agarwal ALP [Catalytic activity/Vol] 31 U/L Critically low 46-116 [facility] Comment on above: Performed By: #### T SH, CMP, LIPID, FT3 #### [facility] [address] [address] [address] Chong Agarwal ALT [Catalytic activity/Vol] 34 U/L Normal 14-59 [facility] Comment on above: Performed By: #### T SH, CMP, LIPID, FT3 #### [facility] [address] [address] [address] Chong Agarwal Anion gap [Moles/Vol] 8.3 mmol/L Normal [facility] Comment on above: Performed By: #### T SH, CMP, LIPID, FT3 #### [facility] [address] [address] [address] Chong Agarwal AST [Catalytic activity/Vol] 22 U/L Normal 15-37 [facility] Comment on above: Performed By: #### T SH, CMP, LIPID, FT3 #### [facility] [address] [address] [address] Chong Agarwal Bilirubin [Mass/Vol] 0.2 mg/dL Normal 0.2-1.0 [facility] Comment on above: Performed By: #### T SH, CMP, LIPID, FT3 #### [facility] [address] [place] [address] Dr. Chong Agarwal Calcium [Mass/Vol] 9.0 mg/dL Normal 8.5-10.1 [facility] Comment on above: Performed By: #### T SH, CMP, LIPID, FT3 #### [facility] [address] [address] [address] Chong Agarwal Chloride [Moles/Vol] 101 mmol/L Normal 98-107 [facility] Comment on above: Performed By: #### T SH, CMP, LIPID, FT3 #### [facility] [address] [place] [address] Dr. Chong Agarwal CO2 [Moles/Vol] 30.0 mmol/L Normal 21.0-32.0 [facility] Comment on above: Performed By: #### T SH, CMP, LIPID, FT3 #### [facility] [address] [place] [address] Dr. Chong Agarwal Creatinine [Mass/Vol] 0.54 mg/dL Critically low 0.55-1.02 [facility] Comment on above: Performed By: #### T SH, CMP, LIPID, FT3 #### [facility] [address] [place] [address] Dr. Chong Agarwal EGFR-AF THAI >60 Normal >=60 [facility] Comment on above: Performed By: #### T SH, CMP, LIPID, FT3 #### [facility] [address] [address] [address] Chong Agarwal EGFR-NON AF THAI >60 Normal >=60 [facility] Comment on above: Performed By: #### T SH, CMP, LIPID, FT3 #### [facility] [address] [address] [address] Chong Agarwal Globulin (S) [Mass/Vol] 3.9 g/dL Normal [facility] Comment on above: Performed By: #### T SH, CMP, LIPID, FT3 #### [facility] [address] [address] [address] Chong Agarwal Glucose [Mass/Vol] 95 mg/dL Normal 74-106 [facility] Comment on above: Performed By: #### T SH, CMP, LIPID, FT3 #### [facility] [address] [address] [address] Chong Agarwal Potassium [Moles/Vol] 4.3 mmol/L Normal 3.5-5.1 [facility] Comment on above: Performed By: #### T SH, CMP, LIPID, FT3 #### [facility] [address] [address] [address] Chong Agarwal Protein [Mass/Vol] 7.4 g/dL Normal 6.4-8.2 [facility] Comment on above: Performed By: #### T SH, CMP, LIPID, FT3 #### [facility] [address] [address] [address] Chong Agarwal Sodium [Moles/Vol] 135 mmol/L Critically low 136-145 [facility] Comment on above: Performed By: #### T SH, CMP, LIPID, FT3 #### [facility] [address] [address] [address] Chong Agarwal Urea nitrogen [Mass/Vol] 12.0 mg/dL Normal 7.0-18.0 [facility] Comment on above: Performed By: #### T SH, CMP, LIPID, FT3 #### [facility] [address] [address] [address] hCong Agarwal Urea nitrogen/Creatinine [Mass ratio] 22.2 mg/mg Normal [facility] Comment on above: Performed By: #### T SH, CMP, LIPID, FT3 #### [facility] [address] [place] [address] Dr. Chong Agarwal TSHon 09-16-2022 TSH 0.986 uIU/mL Normal 0.358-3.74 0 [facility] Comment on above: Performed By: #### T SH, CMP, LIPID, FT3 #### [facility] [address] [address] [address] Chong Agarwal VITAMIN B12on 09-16-2022 Cobalamin (Vitamin B12) [Mass/Vol] 581.0 pg/mL Normal 193.0-986. 0 [facility] Comment on above: Performed By: #### F T4, VITB12 #### [facility] [address] [place] [address] Dr. Chong Agarwal CULTURE WOUNDon 08-22-2022 CULTURE WOUND Culture Observations : METHICILLIN RESISTANT STAPH AUREUS ISOLATED. PLEASE FOLLOW APPROPRIATE ISOLATION PROCEDURES. Isolate 1 Staphylococcus aureus Moderate growth of Isolate 2 Escherichia coli Light growth of ORGANISM 2 Escherichia coli ANTIBIOTIC M.I.C RX STATUS Ampicillin 8 S F Ampicillin/Sulbactam <=2 S F Piperacillin/Tazobactam <=4 S F Cefazolin <=4 S F Ceftazidime <=1 S F Ceftriaxone <=1 S F Ertapenem <=0.5 S F Imipenem <=0.25 S F Amikacin <=2 S F Gentamicin <=1 S F Tobramycin <=1 S F Ciprofloxacin <=0.25 S F Levofloxacin <=0.12 S F Trimethoprim/Sulfamethox azole <=20 S F ORGANISM 1 Staphylococcus aureus ANTIBIOTIC M.I.C RX STATUS Beta-Lactamase Pos POS F Cefoxitin Screen Pos POS F Benzylpenicillin >=0.5 R F Oxacillin >=4 R F Ciprofloxacin <=0.5 S F Levofloxacin <=0.12 S F Inducible Clindamycin Resistance Neg NEG F Erythromycin <=0.25 S F Clindamycin <=0.25 S F Quinupristin/Dalfopristi n <=0.25 S F Linezolid 2 S F Vancomycin <=0.5 S F Tetracycline <=1 S F Rifampicin <=0.5 S F Trimethoprim/Sulfamethox azole <=10 S F Normal [facility] Comment on above: Performed By: #### W OUNDCX #### [facility] [address] [place] [address] Dr. Chong Agarwal DEPAKENE/ VALPROIC ACIDon DEPAKENE 92.4 ug/ml Normal 50.0-100.0 [facility] Comment on above: Performed By: #### V ALP #### [facility] [address] [address] [address] Chong Agarwal Vital Signs Date Time Vital Sign Value Performing Clinician Facility 12-25-2023 10:34-0400 Body height 147.3 cm Víctor Goldberg [employer] [facility] 12-25-2023 10:34-0400 Body mass index (BMI) [Ratio] 31.98 kg/m2 samia Glodberg [employer] [facility] 12-25-2023 10:34-0400 Body temperature 98.91 [degF] Justensamia Earl [employer] EX[employer] [facility] 12-25-2023 10:34-0400 Body weight 69.4 kg Justensamia Earl [employer]CH EXAMINER[employer] [facility] 12-25-2023 10:34-0400 Diastolic blood pressure 61 mm[Hg] Justensamia Earl [employer]CH EXAMINER[employer] Work Phone: [facility] 12-25-2023 10:34-0400 Heart rate 86 /min Justensamia Earl [employer] Work Phone: [facility] 12-25-2023 10:34-0400 Respiratory rate 16 /min Víctor Goldberg [employer] [facility] 12-25-2023 10:34-0400 SaO2% (BldA) [Mass fraction] 99 % Víctor Goldberg [employer] EXAMINER-[employer]ACH[employer] WORK[employer] Work Phone: [facility] 12-25-2023 10:34-0400 Systolic blood pressure 94 mm[Hg] Víctor Goldberg [employer] EXAMINER[employer] WORK[employer] Work Phone: [facility] 09-16-2023 09:00-0400 Diastolic blood pressure 61 mm[Hg] Mohamad Mouchli [facility] 09-16-2023 09:00-0400 Heart rate 70 /min Mohamad Mouchli [facility] 09-16-2023 09:00-0400 Mean blood pressure 74 mm[Hg] Mohamad Mouchli [facility] 09-16-2023 09:00-0400 Systolic blood pressure 99 mm[Hg] Mohamad Mouchli [facility] 09-16-2023 08:50-0400 Blood Pressure Location Mohamad Mouchli [facility] 09-16-2023 08:50-0400 Diastolic blood pressure 68 mm[Hg] Mohamad Mouchli [facility] 09-16-2023 08:50-0400 Heart rate 72 /min Mohamad Mouchli [facility] 09-16-2023 08:50-0400 Mean blood pressure 79 mm[Hg] Mohamad Mouchli [facility] 09-16-2023 08:50-0400 Respiratory rate 12 /min Mohamad Mouchli [facility] 09-16-2023 08:50-0400 SaO2% (BldA) [Mass fraction] 96 % Mohamad Mouchli [facility] 09-16-2023 08:50-0400 Systolic blood pressure 100 mm[Hg] Mohamad Mouchli [facility] 09-16-2023 08:45-0400 Diastolic blood pressure 83 mm[Hg] Mohamad Mouchli [facility] 09-16-2023 08:45-0400 Heart rate 86 /min Mohamad Mouchli [facility] 09-16-2023 08:45-0400 Mean blood pressure 88 mm[Hg] Mohamad Mouchli [facility] 09-16-2023 08:45-0400 Respiratory rate 17 /min Mohamad Mouchli [facility] 09-16-2023 08:45-0400 SaO2% (BldA) [Mass fraction] 97 % Mohamad Mouchli [facility] 09-16-2023 08:45-0400 Systolic blood pressure 98 mm[Hg] Mohamad Mouchli [facility] 09-16-2023 08:35-0400 Body temperature 98.06 [degF] Mohamad Mouchli [facility] 09-16-2023 07:39-0400 Body temperature 98.06 [degF] Mohamad Mouchli [facility] 09-10-2023 09:10-0400 Blood Pressure Location Mohamad Mouchli [facility] 09-10-2023 09:10-0400 Diastolic blood pressure 67 mm[Hg] Mohamad Mouchli [facility] 09-10-2023 09:10-0400 Heart rate 91 /min Mohamad Mouchli [facility] 09-10-2023 09:10-0400 Respiratory rate 16 /min Jessee Nina [facility] 09-10-2023 09:10-0400 Systolic blood pressure 113 mm[Hg] Rosettealma delia Nina [facility] Encounters Encounter Date Encounter Type Care Provider Facility Start: 12-25-2023 End: 12-25-2023 Patient encounter procedure Víctor Goldberg BRANCH EXAMINER-MACHINE LAY OUT WORKER Work Phone: [facility] Pre-Admission Testing Comment on above: Preop testing (Prima ry Dx); Body mass index (BMI) 31.0-31.9, adult Start: 12-25-2023 End: 12-25-2023 Patient encounter status Víctor Goldberg BRANCH EXAMINER-MACHINE LAY OUT WORKER Work Phone: [facility] Work Phone: Start: 12-25-2023 ambulatory VÍCTOR LOPEZDEYVI Facil ity:[facility] Start: 12-25-2023 Encounter for other preprocedural examination VÍCTOR LOPEZDEYVI [facility] Start: 12-10-2023 ambulatory UNKNOWN PROVIDER Facili ty:[facility] Start: 09-23-2023 End: 09-24-2023 ambulatory Jessee Nina Facility:[facility] Start: 09-23-2023 End: 09-23-2023 Patient encounter procedure Jessee Nina [facility] Start: 09-16-2023 End: 09-17-2023 ambulatory Jessee Nina Facility:[facility] Start: 09-16-2023 End: 09-16-2023 Patient encounter procedure Jessee Nina [facility] Start: 09-10-2023 End: 09-11-2023 ambulatory Jessee Nina Facility:[facility] Start: 09-10-2023 End: 09-10-2023 Patient encounter procedure Jessee Nina [facility] Start: 09-09-2023 ambulatory [facility] Start: 04-01-2023 End: 04-02-2023 ambulatory BALJIT PINEDO Facility:[facility] Start: 04-01-2023 End: 04-01-2023 Lab Drop off BALJIT PINEDO [facility] Start: 01-14-2023 End: 01-15-2023 ambulatory BALJIT PINEDO Facility:[facility] Start: 01-14-2023 End: 01-14-2023 Lab Drop off BALJIT PINEDO [facility] Start: 10-01-[address] BALJIT PINEDO Fac ility:[facility] Start: 09-16-2022 End: 09-17-[address] BALJIT PINEDO Facility:[facility] Start: 08-19-2022 End: 08-19-[address] BALJIT PINEDO Facility:[facility] Start: 07-22-2022 End: 07-25-2022 Patient encounter procedure Kary Ku DDS Work Phone: [facility] Start: 06-08-2022 Letter encounter Rm Goldman DDS Work Phone: [facility] Start: 04-29-2022 End: 04-30-[address] BALJIT PINEDO Facility:[facility] Procedures Date Procedure Procedure Detail Performing Clinician Start: 12-25-2023 Blood count complete automated Víctor brock BRANCH EXAMINER-MACHINE LAY OUT WORKER Work Phone: Start: 09-16-2023 Esophagogastroduodenoscopy Jessee armstrong Plan of Treatment Date Care Activity Detail Author Start: 2035 Shingles (RZV) Vacci ne (1 of 2) Shingles (RZV) Vaccine (1 of 2) [facility] Start: 08-14-2032 Tetanus vaccination Tetanus (T d or Tdap) [facility] Start: 02-16-2024 Influenza vaccination Influenza Vacc ine (#1) [facility] Start: 01-08-2024 End: 01-08-2024 Admission to same day surgery center 01/08/2024 7:20 AM EDT - 01/08/2024 9:15 AM EDT Surgery [facility] Ambulatory Surgery [address] [place], [place] [id number] Stacie Torres DMD [address] [place] [address] DENTAL RESTORATIONS [facility] Ambulatory Surgery Comment on above: DENTAL RESTORATIONS Start: 01-08-2024 End: 01-08-2024 DENTAL RESTORATIONS DENTAL RESTORATIONS Routine scheduled Caries 01/08/2024 7:20 AM EDT [facility] Start: 01-08-2024 Subsequent hospital visit by physician 01/08/2024 7:20 AM EDT Hospital Encounter [facility] Ambulatory Surgery [address] [place], [place] [id number] Stacie Torres DMD [address] [place] [address] [facility] Start: 01-16-2023 COVID-19 Vaccine ( season) COVID-19 Vaccine ( season) [facility] Start: 08-31-2022 Tetanus vaccination Tetanus (T d or Tdap) Booster [facility] Start: 07-22-2022 End: 07-22-2022 Patient encounter procedure 07/22/2022 Procedure Visit Dentistry Diana Horan [facility] [address] [place] [address] [facility] Start: 02-15-2022 Influenza vaccination Influenza Vacc ine (#1) [facility] Start: 2012 HPV Vaccine (optiona l start 27-45 years) HPV Vaccine (optional start 27-45 years) [facility] Start: 2006 Screening for malign ant neoplasm of cervix Pap Smear [facility] Start: 2004 Hepatitis A (HAV) Vaccine (optional start 19+ years) Hepatitis A (HAV) Vaccine (optional start 19+ years) [facility] Start: 2004 Hepatitis B vaccination Hepati tis B (HBV) Vaccine (1 of 3 - 19+ 3-dose series) [facility] Start: 2003 Hepatitis C screening Hepatitis C An tibody [facility] Start: 2000 HIV screening HIV Test [facility] Start: 1985 Screening for malign ant neoplasm of breast Mammography shared decision making (35 through 39 years) [facility] Ecg routine ecg w/le ast 12 lds trcg only w/o i&r EKG 12 LEAD - PERFORM MUSE Routine Preop testing Ordered: 12/25/2023 [facility] [employer] Work Phone: Comment on above: Ordered: 12/25/2023 Immunizations Immunization Date Immunization Notes Care Provider [facility] 03-04-2023 influenza virus vacc ine, unspecified formulation RosetteRawbotscarmelo ixigoarmando [facility] 08-14-2022 SARS-CoV-2 (COVID-19 ) mRNAMUL.[id number] [employer] ixigoarmando [facility] 08-14-2022 tetanus toxoid, redu penelope diphtheria toxoid, and acellular pertussis vaccine, adsorbed [employer] ixigoarmando [facility] 03-05-2022 influenza virus vacc ine, unspecified formulation [employer] [facility] 03-05-2022 SARS-CoV-2 (COVID-19 ) mRNAMUL.ORD![id number] [employer] [facility] Comment on above: Result Comment: 2023: TPVALL 03-13-2021 influenza, injectabl e, quadrivalent, preservative free Rmphuong Goldman DDS Work Phone: [facility] 03-13-2021 SARS-CoV-2 (COVID-19 ) mRNA BNT-162b2 vax Jessee Nina [facility] Comment on above: Result Comment: 2023: TPV3 03-13-2021 influenza virus vacc ine, unspecified formulation Rm Rodriguezano DDS Work Phone: [facility] 06-19-2020 Pfizer (12+ yrs) SARS-COV-2 (COVID-19) vaccine, mRNA, spike protein, LNP, pres. free, 30 mcg/0.3mL dose (XGI=832) Rm Susi DDS Work Phone: [facility] Comment on above: Result Comment: 2023: TPVAL 05-29-2020 Pfizer (12+ yrs) SARS-COV-2 (COVID-19) vaccine, mRNA, spike protein, LNP, pres. free, 30 mcg/0.3mL dose (PDZ=301) Rmphuong Goldman DDS Work Phone: [facility] Comment on above: Result Comment: 2023: TPVAL 02-22-2020 influenza virus vacc ine, unspecified formulation Jessee Nina [facility] 02-22-2020 influenza, injectabl e, quadrivalent, preservative free Rm Susi DDS [facility] 03-11-2019 influenza virus vacc ine, unspecified formulation Jessee Nina [facility] 03-11-2019 influenza, injectabl e, quadrivalent, preservative free Rm Susi DDS [facility] Phone[facility] 02-24-2018 influenza virus vacc ine, unspecified formulation Mohamad Mouchli [facility] 02-24-2018 influenza, injectabl e, quadrivalent, preservative free Rm Susi DDS Work Phone: [facility] 03-11-2017 influenza virus vacc ine, unspecified formulation Mohamad Mouchli [facility] 03-11-2017 influenza, injectabl e, quadrivalent, contains preservative Rm Susi DDS Work Phone: [facility] 02-20-2016 influenza virus vacc ine, unspecified formulation Mohamad Mouchli [facility] 02-20-2016 influenza, seasonal, injectable Mr Susi DDS Work Phone: [facility] 03-08-2015 influenza virus vacc ine, unspecified formulation Mohamad Mouchli [facility] 03-08-2015 influenza, injectabl e, quadrivalent, preservative free Rm Susi DDS Work Phone: [facility] 03-23-2014 influenza virus vacc ine, unspecified formulation Mohamad Mouchli [facility] 03-23-2014 influenza, injectabl e, quadrivalent, preservative free Rm Susi DDS Work Phone: [facility] 03-15-2013 influenza virus vacc ine, unspecified formulation Mohamad Mouchli [facility] 03-15-2013 influenza, seasonal, injectable Rm Susi DDS Work Phone: [facility] 08-31-2012 tetanus toxoid, redu penelope diphtheria toxoid, and acellular pertussis vaccine, adsorbed Rm Susi DDS Work Phone: [facility] 03-10-2012 influenza virus vacc ine, unspecified formulation Mohamad Mouchli [facility] 03-10-2012 influenza, seasonal, injectable Rm Goldman DDS Work Phone: [facility] 01-29-2011 influenza virus vacc ine, unspecified formulation Mohamad Mouchli [facility] 01-29-2011 influenza, seasonal, injectable Rm Goldman DDS Work Phone: [facility] 03-13-2010 influenza virus vacc ine, whole virus Rm Goldman DDS Work Phone: [facility] 03-13-2010 influenza, whole Mohamad Erica chli [facility] 04-04-2009 novel influenza-H1N1 -09, preservative-free, injectable Rm Goldman DDS Work Phone: [facility] 03-09-2008 influenza virus vacc ine, whole virus Rm Goldman DDS Work Phone: [facility] 03-09-2008 influenza, whole Mohamad Erica chli [facility] 10-01-2006 meningococcal ACWY vaccine, unspecified formulation Gersond Rejiuchli [facility] 10-01-2006 meningococcal polysaccharide (groups A, C, Y and W-135) diphtheria toxoid conjugate vaccine (MCV4P) Rm Rodriguezano DDS Work Phone: [facility] 09-02-2000 TD(adult) unspecifie d formulation; Translations: [Td(adult) unspecified formulation] Rm Susi DDS Work Phone: [facility] 07-29-1990 diphtheria, tetanus toxoids and pertussis vaccine Rmphuong Rodriguezano DDS Work Phone: [facility] 07-29-1990 trivalent poliovirus vaccine, live, oral Rm Susi DDS Work Phone: [facility] 11-03-1987 trivalent poliovirus vaccine, live, oral Rm Goldman DDS Work Phone: [facility] 07-02-1987 haemophilus influenz ae type b vaccine, conjugate unspecified formulation Rm Goldman DDS Work Phone: [facility] 07-02-1987 Hib, unspecified formulation Jessee Nina [facility] 05-29-1987 diphtheria, tetanus toxoids and pertussis vaccine Rm Goldman DDS Work Phone: [facility] 05-29-1987 trivalent poliovirus vaccine, live, oral Rm Goldman DDS Work Phone: [facility] 11-15-1986 measles, mumps and rubella virus vaccine Rm Goldman DDS Work Phone: [facility] 06-28-1986 trivalent poliovirus vaccine, live, oral Rm Goldman DDS Work Phone: [facility] 1985 diphtheria, tetanus toxoids and pertussis vaccine Rm Goldman DDS Work Phone: [facility] 1985 diphtheria, tetanus toxoids and pertussis vaccine Rm Goldman DDS Work Phone: [facility] 1985 trivalent poliovirus vaccine, live, oral Rm Goldman DDS Work Phone: [facility] 1985 diphtheria, tetanus toxoids and pertussis vaccine Rm Goldman DDS Work Phone: [facility] Payers Date Payer Category Payer Medicaid [id number] 1985 Unknown [id number] 2.16.8 [id number] 1985 Unknown [id number] 2.16.8 [id number] 1985 Unknown [id number] 2.16.8 [id number] 1985 Unknown [id number] 2.16.8 [id number] 1985 Unknown [id number] 2.16.8 [id number] 1985 Unknown [id number] 2.16.8 [id number] 1985 Unknown [id number] 2.16. [id number] 1985 Unknown [id number] 2.16. [id number] 1959 Medicaid [id number] Unknown [id number] 2.16.84 [id number] Unknown [id number] 2.16.84 [id number] Unknown [id number] 2.16.84 [id number] Unknown [id number] 2.16.84 [id number] Social History Date Type Detail Facility Start: 02-03-2019 End: 09-10-2023 Tobacco smoking status [facility] Never smoked tobacco [facility] Start: 02-03-2019 Tobacco use and exposure Smokeless tobacco non-user [facility] Start: 11-06-2020 End: 12-25-2023 Alcohol intake Ex-drinker (finding) [facility] Start: 1985 Sex Assigned At Not on file [facility] Tobacco smoking status No Smoking Status Entered [facility] Start: 12-25-2023 Sex Assigned At Female F [facility] Tobacco smoking status Never 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 - 12/25/2023 10:30 AM EDTGjoelleKary parker DDS - 07/22/2022 10:35 AM [facility] Note Date & Type Note Facility 12-25-2023 Instructions Víctor Goldberg GONZALES-MACHINE LAY OUT WORKER - 12/25/2023 10:36 AM EDT On the morning of your surgery, please take only the following medications, with a small sip of water: levothyroxine (SYNTHROID) 112 MCG tablet metoprolol (LOPRESSOR) 100 MG tablet paliperidone (INVEGA) 3 MG 24 hour tablet sertraline (ZOLOFT) 100 MG tablet ondansetron (Zofran) 4 MG tablet-- as needed clonazePAM (KlonoPIN) 0.5 MG tablet cloNIDine (CATAPRES) 0.1 MG tablet doxazosin (CARDURA) 4 MG tablet Iloperidone (Fanapt) 2 MG TABS busPIRone (BUSPAR) 15 MG tablet cabergoline (DOSTINEX) 0.5 MG tablet carbamazepine (TEGRETOL) 200 MG tablet Do not take any Aspirin after 12/30. Do not take any Ibuprofen, Aleve, Advil, or Motrin or any other NSAIDS after 01/03. May take over the counter Acetaminophen (Tylenol) as needed for pain Please hold all Vitamin E, [place] 3, fish oil and herbal supplements for 1 week prior to surgery Please hold Naltrexone 3 days prior to surgery. Last dose on 01/03. Please use this CHECKLIST to prepare for your surgery/procedure: ? Assume that any lab or testing done during your Pre-admission testing appointment is within normal limits unless otherwise contacted. ? Expect a call from [facility] one business day prior to surgery for surgery arrival time and location. ? Please plan to restart your medications the day after surgery unless otherwise explicitly instructed. ? Please contact your surgeon s/proceduralist s office for any surgical or recovery types of questions. ? CANCELLING YOUR SURGERY/PROCEDURE: If you get a cold, are not feeling well, or become , please call your surgeon s office as soon as possible. ? Refer to your Preparing for Your Surgery/Procedure booklet or [email or web address] if you have questions. Contact the Pre-Admission Testing department at [phone] or your surgeon's office with any questions that are not answered. ? Eating and drinking before surgery: Adult Patients: Per anesthesia's fasting protocol: you may have plain water (no additives) up to 2 hours prior to surgery arrival time. No food or any other type of liquids for at least 8 hours prior to surgery arrival time. A small sip of water with approved morning medications on the day of surgery is acceptable. If a patient with diabetes is concerned about low blood sugar while being NPO, they may have a small sip of clear juice (I.e. apple juice or Gatorade) no later than 2 hours prior to arrival time. Patient needs to alert his or her anesthesiologist if this occurs on the day of surgery. Enhanced Recovery After Surgery (ERAS), bariatric, and endoscopy/colonoscopy patients should follow their surgeon s/proceduralist s instructions for clear fluids prior to surgery. Pediatric Patients (under the age of 1212 years old): Patients are not to have solid food for 8 hours prior to coming for surgery. Patients can have infant formula or non-human milk (skim, 2%, whole, nut-milks, soy, etc.) 6 hours prior to coming for surgery. Patients can have breast milk up to 4 hours prior to coming for surgery. Patients can have clear liquids (water, flavored whitaker, Pedialyte) up to 2 hours prior to coming for surgery. ON THE DAY OF SURGERY: ? DO bring your ID, insurance card, medication list, and a small amount of bai for filling prescriptions and any medical co-pays. ? Do NOT wear any jewelry, (including rings, earrings, or mouth, tongue, or body piercings). Metal jewelry could cause constriction, amputation, or stafford. Loose or bulky things in your mouth can be unsafe and result in breathing problems. ? DO bring glasses if you wear contacts and other assistance items such as oxygen, inhaler, cane, walker, etc. ? Do NOT bring valuables, credit cards, or large amounts of bai. ? Do NOT wear lotion or strong-smelling fragrance (perfume, cologne, cream or lotion). ? ARRANGE FOR A RIDE: If you are scheduled to go home the same day of surgery, a responsible adult MUST drive or accompany you home in a car, cab, shared ride service, or Metro-van. You will not be allowed to drive yourself home or travel home alone. Your surgery may be cancelled if you do not have a ride. A responsible adult must stay with you after surgery. Please call [facility] [employer] if you need transportation assistance or have concerns about going home [phone]. ? PEDIATRIC or ADOLESCENTS: Parents or a legal guardian must remain at the hospital during surgery. You will need to make childcare arrangements for your other small children to remain at home or bring an adult with you who can supervise them in the waiting area while you are with your child. Please bring legal guardianship papers with you if applicable. Patients who whose assigned sex at was female, and are starting puberty, will be tested for per hospital policy. ? SLEEP APNEA PATIENTS: Bring your sleep apnea machine and mask. ? PLEASE BE ON TIME. A late arrival may result in the cancellation/ delay of your surgery. Post-op Nausea and Vomiting: A risk of anesthesia is nausea and/or vomiting (PONV). Certain patients are at higher risk than others. Talk to your anesthesiologist about the plan to minimize this risk. In general, it is best to start with only ice chips or small sips of water, then progress to clear, non-alcoholic fluids. You do not have to eat if you do not feel like it; fluids are the most important in the first 24 hours after surgery. If you start to eat, try bananas, applesauce, plain toast, saltine crackers, or broth; avoid fried or fatty foods. Make sure to eat something about 15 minutes before taking any pain medications. Seek medical attention for any prolonged PONV and signs of dehydration. [facility]; it is our pleasure to care for you documented in this encounter [facility] 12-25-2023 History of Present illness Narrative Images from the original note were not included. Pre-Admission Testing Consultation Vee Sotelo, [id number] 38 year old Female 12/26/2023 Consult placed to [facility] by Dr. Almaraz due to significant PMH of caries. [facility] Triage Risk Score Total Score: 2 2 Patient is on more than 2 antihypertension medications. Vee Sotelo is scheduled for DENTAL RESTORATIONS on 01/08/2024. Pre-Op diagnosis of: Pre-Op Diagnosis Codes: * Caries [K02.9] HISTORY OF PRESENT ILLNESS: Patient presents today with a history of caries. Patient is here for pre-admission optimization and education prior to surgery. She is accompanied with her caregiver at [place], Dora Lewis, who is helping review the patient's current and past medical history. Gabriela Rodriguez (mother--phone-- [phone]) is legal guardian. RECENT ILLNESS: Serious illness or hospitalization within the last six months. No STOP BANG: STOP-BANG Row Name 12/25/23 1058 History of sleep apnea? No Snoring No Tired/Fatigued No Observed Apnea No Pressure: Hypertension No BMI greater than 35 0 Age greater than 50 0 Neck circ greater than 40cm (15.75 ) No Gender male? 0 Score 0 ALLERGIES: Allergies Allergen Reactions Benadryl [Diphenhydramine] Chloral Hydrate Valium [Diazepam] Patient Active Problem List: Other specified infantile cerebral palsy [G80.8] Dental caries [K02.9] Dental decay [K02.9] Hamstring tightness [M62.89] Examination following surgery [Z09] Crouched gait [R26.89] Caries [K02.9] SOCIAL HISTORY: reports that she does not currently use drugs. Social History Tobacco Use Smoking status: Never Smokeless tobacco: Never Substance Use Topics Alcohol use: Not Currently Drug use: Not Currently MEDICAL HISTORY: Past Medical History: Diagnosis Date ADHD (attention deficit hyperactivity disorder) OSH H+P 01/25/19 Anemia OSH H+P 01/25/19 Autism (HCC) OSH H+P 01/25/19 Cerebral palsy (HCC) Mild, OSH H+P 01/25/19 Cholelithiasis OSH H+P 01/25/19 Chronic constipation OSH H+P 01/25/19 Disruptive behavior disorder OSH H+P 01/25/19 Dyspepsia OSH H+P 01/25/19 Hypothyroid OSH H+P 01/25/19 Impulse control disorder OSH H+P 01/25/19 Intermittent explosive disorder OSH H+P 01/25/19 Myopia OSH H+P 01/25/19 Osteopenia OSH H+P 01/25/19 Pervasive developmental disorder (HCC) OSH H+P 01/25/19 Seasonal allergies OSH H+P 01/25/19 Seizure disorder (HCC) OSH H+P 01/25/19 Severe intellectual disability OSH H+P 01/25/19 SURGICAL HISTORY: Past Surgical History: Procedure Laterality Date CHOLECYSTECTOMY 2008 OSH H+P 01/25/19 DENTAL RESTORATIONS N/A 02/11/2019 Procedure: DENTAL RESTORATIONS; Surgeon: Fernando Kurtz DDS; Location: [facility] Surgery [place]; Service: Dental DENTAL RESTORATIONS N/A 11/05/2020 Procedure: DENTAL RESTORATIONS; Surgeon: Dru Friedman DDS; Location: [facility] Surgery [place]; Service: Dental Past Medical History and Review of Systems Pulmonary - negative ROS Dental Comment: Caries--s/p dental restorations x2 Endo (+) hypothyroidism 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 CURRENT MEDICATION LIST: Current Outpatient Medications Medication Sig Dispense Refill guanfacine (TENEX) 1 MG tablet Take 1 mg by mouth at bedtime. levothyroxine (SYNTHROID) 112 MCG tablet Take 112 mcg by mouth daily. medroxyPROGESTERone (Depo-Provera) 150 MG/ML injection Inject 150 mg into the muscle once. metoprolol (LOPRESSOR) 100 MG tablet Take 100 mg by mouth 2 times daily. paliperidone (INVEGA) 3 MG 24 hour tablet Take 6 mg by mouth daily. sertraline (ZOLOFT) 100 MG tablet Take 100 mg by mouth daily. trazodone (DESYREL) 100 MG tablet Take 100 mg by mouth at bedtime. ondansetron (Zofran) 4 MG tablet Take 4 mg by mouth every 12 hours as needed for Nausea. CHLORPROMAZINE HCL ORAL Take 50 mg by mouth at bedtime. clonazePAM (KlonoPIN) 0.5 MG tablet Take 0.5 mg by mouth 2 times daily. cloNIDine (CATAPRES) 0.1 MG tablet Take 0.1 mg by mouth 2 times daily. doxazosin (CARDURA) 4 MG tablet Take 4 mg by mouth daily. Iloperidone (Fanapt) 2 MG TABS Take by mouth. busPIRone (BUSPAR) 15 MG tablet Take 15 mg by mouth 2 times daily. cabergoline (DOSTINEX) 0.5 MG tablet Take 0.5 mg by mouth. carbamazepine (TEGRETOL) 200 MG tablet Take 100 mg by mouth 3 times daily. VITAMIN D ORAL Take 1,000 Units by mouth daily. Linzess 145 MCG CAPS capsule Take 145 mcg by mouth daily. montelukast (SINGULAIR) 10 MG tablet Take 10 mg by mouth daily. naltrexone 50 MG tablet Take 50 mg by mouth daily Indications: take 2 tablets twice a day. Oyster Shell 500 MG TABS Take by mouth. risperiDONE (RISPERDAL) 0.5 MG tablet Take 0.5 mg by mouth 2 times daily Indications: take one tablet by mouth twice a day at bedtime. 1 tab noon and 1 tab hs risperiDONE (RISPERDAL) 1 MG tablet Take 1 mg by mouth 2 times daily Indications: take one tablet by mouth 3 times daily. senna (SENNA-TABS) 8.6 MG TABS tablet Take 1 Tablet by mouth Indications: daily at 0800 and 2000. Cholecalciferol (VITAMIN D) 1000 units TABS Take by mouth. famotidine (PEPCID) 20 MG tablet Take 20 mg by mouth daily. ferrous sulfate 325 (65 Fe) MG tablet Take 325 mg by mouth daily. Calcium Polycarbophil (FIBER-LAX ORAL) Take by mouth Indications: daily at bedtime with 20 oz of water. lamoTRIgine (LAMICTAL) 100 MG tablet Take 100 mg by mouth Indications: take one tablet by mouth 3 times daily. levETIRAcetam (KEPPRA) 500 MG tablet Take 500 mg by mouth 2 times daily. levothyroxine (SYNTHROID) 75 MCG tablet Take 75 mcg by mouth daily. Take at 8 pm loratadine (CLARITIN) 10 MG tablet Take 10 mg by mouth daily. pregabalin (LYRICA) 75 MG capsule Take 75 mg by mouth 3 times daily. alendronate (FOSAMAX) 35 MG tablet Take 35 mg by mouth once weekly. chlorhexidine (PERIDEX) 0.12 % oral solution Take 15 mL by mouth 2 times daily. divalproex (DEPAKOTE) 500 MG enteric coated tablet Take 500 mg by mouth 2 times daily Indications: take one tablet in the morning and 2 tablets at bedtime. 1 tab am and 2 tab hs divalproex (DEPAKOTE SPRINKLE) 125 MG CSDR capsule Take 125 mg by mouth Indications: take 2 capsules by mouth every morning. docusate sodium (COLACE) 100 MG capsule Take 100 mg by mouth Indications: take 2 capsules by mouth 3 times daily. No current facility-administered medications for this visit. HEIGHT: 4' 10 WEIGHT: Weight was 79.8 kg on 10/19/2020 BMI: 31.98 VITAL SIGNS: BP 94/61 Pulse 86 Temp 98.9 F (37.2 C) Resp 16 Ht 1.473 m (4' 10 ) Wt 69.4 kg (153 lb) SpO2 99% BMI 31.98 kg/m PAIN ASSESSMENT: Severity: 0 Location: N/A AIRWAY EXAM: Mallampati score: 2 TMD: Adequate Neck Extension/ Flexion: Adequate Mouth Opening: Adequate Dentition: Teeth chipped and Missing teeth Micrognathia/Overbite: No FUNCTIONAL CAPACITY: <4 mets PHYSICAL EXAM: Eyes: PERRL and EOM's intact ENT: Nares normal, Mucosa normal, Neck supple, and Carotids normal pulse without bruits Pulmonary: Chest clear to auscultation bilaterally Cardiovascular: RRR with S1S2 and No murmurs, gallops, or rubs Abdomen: Deferred Extremities: No gross or obvious abnormalities Neurologic: Awake, alert, oriented, No motor deficits, and Sensation grossly intact Psychiatric: Appropriate mood/affect Skin: No gross or obvious abnormalities on visible skin Assessment and Plan: 1) Pre-Admission Evaluation 2) Pre-Op Diagnosis Codes: * Caries [K02.9] LABS, TESTS, CONSULTS ORDERED: Orders & Meds Signed During This Encounter Complete Blood Count Basic Metabolic Panel busPIRone (BUSPAR) 15 MG tablet cabergoline (DOSTINEX) 0.5 MG tablet carbamazepine (TEGRETOL) 200 MG tablet CHLORPROMAZINE HCL ORAL clonazePAM (KlonoPIN) 0.5 MG tablet cloNIDine (CATAPRES) 0.1 MG tablet doxazosin (CARDURA) 4 MG tablet Iloperidone (Fanapt) 2 MG TABS guanfacine (TENEX) 1 MG tablet levothyroxine (SYNTHROID) 112 MCG tablet medroxyPROGESTERone (Depo-Provera) 150 MG/ML injection metoprolol (LOPRESSOR) 100 MG tablet paliperidone (INVEGA) 3 MG 24 hour tablet sertraline (ZOLOFT) 100 MG tablet trazodone (DESYREL) 100 MG tablet ondansetron (Zofran) 4 MG tablet EKG 12 LEAD - PERFORM LABORATORY DATA: No results found for: HBA1C CBC (last 3 years, up to 8 values) 12/25/2023 10:41 AM WBC 5.3 RBC 3.48 Hgb 10.8 Hct 33.5 MCV 96 RDW 16.1 Plt 425 BMP (last 3 years, up to 8 values) 12/25/2023 10:41 AM Na 134 K 4.4 Cl 102 CO2 23 Gap 13 Glu 85 BUN 7 Cr 0.36 Ca 9.0 eGFR 133 No results found for this or any previous visit (from the past 8760 hour(s)). PT/PTT/INR (last 3 years, up to 8 values) No lab values to display. Type & Screen (Last result in the past 30 days) No lab values to display. TESTS REVIEWED: I personally reviewed and interpreting and findings were: CXRay: No Chest x-ray found EK12/25/2023 Normal sinus rhythm Nonspecific T wave abnormality Abnormal ECG No previous ECGs available ECHO: Echocardiogram date: Not Found Stress test date: Last StressTest: none found going back to 09/08/2005 Patient is medically optimized for surgery. This note will be forwarded to the referring provider. Patient should follow up with referring provider. Patient has been directed to discuss specific recovery questions with his/her surgeon/proceduralist. Attestation: I have spent 34 total minutes. Visit activities: - preparing to see the patient (e.g., review of tests) - obtaining and/or reviewing separately obtained history - performing a medically appropriate examination and/or evaluation - counseling and educating the patiecounseling and educating the patient/family/caregivernt/fami ly/caregiver - counseling and educating the patient/family/caregiver - ordering medications, tests, or procedures - documenting clinical information in the electronic or other health record - independently interpreting results (not separately reported) and communicating results to the patient/family/caregiver - care coordination (not separately reported). Interviewer signature: ANDREWS Cisneros 5:27 PM 12/26/2023 documented in this encounter [facility] 12-25-2023 Note Pre-Admission Testin g Consultation Vee Sotelo, [id number] 38 year old Female 12/26/2023 Consult placed to [facility] by Dr. Almaraz due to significant PMH of caries. [facility] Triage Risk Score Total Score: 2 2 Patient is on more than 2 antihypertension medications. Vee Sotelo is scheduled for DENTAL RESTORATIONS on 01/08/2024. Pre-Op diagnosis of: Pre-Op Diagnosis Codes: * Caries [K02.9] HISTORY OF PRESENT ILLNESS: Patient presents today with a history of caries. Patient is here for pre-admission optimization and education prior to surgery. She is accompanied with her caregiver at [place], Dora Saucedo, who is helping review the patient's current and past medical history. Gabriela Rodriguez (mother--phone-- [phone]) is legal guardian. RECENT ILLNESS: Serious illness or hospitalization within the last six months. No STOP BANG: STOP-BANG Row Name 12/25/23 1058 History of sleep apnea? No Snoring No Tired/Fatigued No Observed Apnea No Pressure: Hypertension No BMI greater than 35 0 Age greater than 50 0 Neck circ greater than 40cm (15.75 ) No Gender male? 0 Score 0 ALLERGIES: Allergies Allergen Reactions Benadryl [Diphenhydramine] Chloral Hydrate Valium [Diazepam] Patient Active Problem List: Other specified infantile cerebral palsy [G80.8] Dental caries [K02.9] Dental decay [K02.9] Hamstring tightness [M62.89] Examination following surgery [Z09] Crouched gait [R26.89] Caries [K02.9] SOCIAL HISTORY: reports that she does not currently use drugs. Social History Tobacco Use Smoking status: Never Smokeless tobacco: Never Substance Use Topics Alcohol use: Not Currently Drug use: Not Currently MEDICAL HISTORY: Past Medical History: Diagnosis Date ADHD (attention deficit hyperactivity disorder) OSH H+P 01/25/19 Anemia OSH H+P 01/25/19 Autism (HCC) OSH H+P 01/25/19 Cerebral palsy (HCC) Mild, OSH H+P 01/25/19 Cholelithiasis OSH H+P 01/25/19 Chronic constipation OSH H+P 01/25/19 Disruptive behavior disorder OSH H+P 01/25/19 Dyspepsia OSH H+P 01/25/19 Hypothyroid OSH H+P 01/25/19 Impulse control disorder OSH H+P 01/25/19 Intermittent explosive disorder OSH H+P 01/25/19 Myopia OSH H+P 01/25/19 Osteopenia OSH H+P 01/25/19 Pervasive developmental disorder (HCC) OSH H+P 01/25/19 Seasonal allergies OSH H+P 01/25/19 Seizure disorder (HCC) OSH H+P 01/25/19 Severe intellectual disability OSH H+P 01/25/19 SURGICAL HISTORY: Past Surgical History: Procedure Laterality Date CHOLECYSTECTOMY 2008 OSH H+P 01/25/19 DENTAL RESTORATIONS N/A 02/11/2019 Procedure: DENTAL RESTORATIONS; Surgeon: Fernando Kurtz DDS; Location: [facility] [place]; Service: Dental DENTAL RESTORATIONS N/A 11/05/2020 Procedure: DENTAL RESTORATIONS; Surgeon: Dru Friedman DDS; Location: [facility] [place]; Service: Dental Past Medical History and Review of Systems Pulmonary - negative ROS Dental Comment: Caries--s/p dental restorations x2 Endo (+) hypothyroidism 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 CURRENT MEDICATION LIST: Current Outpatient Medications Medication Sig Dispense Refill guanfacine (TENEX) 1 MG tablet Take 1 mg by mouth at bedtime. levothyroxine (SYNTHROID) 112 MCG tablet Take 112 mcg by mouth daily. medroxyPROGESTERone (Depo-Provera) 150 MG/ML injection Inject 150 mg into the muscle once. metoprolol (LOPRESSOR) 100 MG tablet Take 100 mg by mouth 2 times daily. paliperidone (INVEGA) 3 MG 24 hour tablet Take 6 mg by mouth daily. sertraline (ZOLOFT) 100 MG tablet Take 100 mg by mouth daily. trazodone (DESYREL) 100 MG tablet Take 100 mg by mouth at bedtime. ondansetron (Zofran) 4 MG tablet Take 4 mg by mouth every 12 hours as needed for Nausea. CHLORPROMAZINE HCL ORAL Take 50 mg by mouth at bedtime. clonazePAM (KlonoPIN) 0.5 MG tablet Take 0.5 mg by mouth 2 times daily. cloNIDine (CATAPRES) 0.1 MG tablet Take 0.1 mg by mouth 2 times daily. doxazosin (CARDURA) 4 MG tablet Take 4 mg by mouth daily. Iloperidone (Fanapt) 2 MG TABS Take by mouth. busPIRone (BUSPAR) 15 MG tablet Take 15 mg by mouth 2 times daily. cabergoline (DOSTINEX) 0.5 MG tablet Take 0.5 mg by mouth. carbamazepine (TEGRETOL) 200 MG tablet Take 100 mg by mouth 3 times daily. VITAMIN D ORAL Take 1,000 Units by mouth daily. Linzess 145 MCG CAPS capsule Take 145 mcg by mouth daily. montelukast (SINGULAIR) 10 MG tablet Take 10 mg by mouth daily. naltrexone 50 MG tablet Take 50 mg by mouth daily Indications: take 2 tablets twice a day. Oyster Shell 500 MG TABS T (more content not included)... [facility] 09-17-2023 Note [id number] [facility] 09-16-2023 Hospital Discharge instructions Patient Education 09/16/2023 08:49:14 Gastritis, Adult, Lrsn-ki-Eafn Gastritis, Adult Gastritis is irritation and swelling (inflammation) of the stomach. There are two kinds of gastritis: Acute gastritis. This kind develops quickly. Chronic gastritis. This kind is much more common. It develops slowly and lasts for a long time. It is important to get help for this condition. If you do not get help, your stomach can bleed, and you can get sores (ulcers) in your stomach. What are the causes? This condition may be caused by: Germs that get to your stomach and cause an infection. Drinking too much alcohol. Medicines you are taking. Having too much acid in the stomach. Having a disease of the stomach. Other causes may include: An allergic reaction. Some cancer treatments (radiation). Smoking cigarettes or using products that contain nicotine or tobacco. In some cases, the cause of this condition is not known. What increases the risk? Having a disease of the intestines. Having Crohn's disease. Using aspirin or ibuprofen and other NSAIDs to treat other conditions. Stress. What are the signs or symptoms? Pain in your stomach. A burning feeling in your stomach. Feeling like you may vomit (nauseous). Vomiting or vomiting blood. Feeling too full after you eat. Weight loss. Bad breath. Blood in your poop (stool). In some cases, there are no symptoms. How is this treated? This condition is treated with medicines. The medicines that are used depend on what caused the condition. You may be given: Antibiotic medicine, if your condition was caused by an infection from germs. H2 blockers and similar medicines, if your condition was caused by too much acid in the stomach. Treatment may also include stopping the use of certain medicines, such as aspirin or ibuprofen. Follow these instructions at home: Medicines Take [id number] and prescription medicines only as told by your doctor. If you were prescribed an antibiotic medicine, take it as told by your doctor. Do not stop taking it even if you start to feel better. Alcohol use Do not drink alcohol if: ?Your doctor tells you not to drink. ?You are , may be , or are planning to become . If you drink alcohol: ?Limit your use to: ?0 1 drink a day for women. ?0 2 drinks a day for men. ?Know how much alcohol is in your drink. In the [place] one drink equals one 12 oz bottle of beer (355 mL), one 5 oz glass of wine (148 mL), or one 1 oz glass of hard liquor (44 mL). General instructions Eat small meals often, instead of large meals. Avoid foods and drinks that make you feel worse. Drink enough fluid to keep your pee (urine) pale yellow. Talk with your doctor about ways to manage stress. You can exercise or do deep breathing, meditation, or yoga. Do not smoke or use any products that contain nicotine or tobacco. If you need help quitting, ask your doctor. Keep all follow-up visits. Contact a doctor if: Your symptoms get worse. Your stomach pain gets worse. Your symptoms go away and then come back. You have a fever. Get help right away if: You vomit blood or something that looks like coffee grounds. You have black or dark red poop. You throw up any time you try to drink fluids. These symptoms may be an emergency. Get help right away. Call your local emergency services (911 in the [place] Do not wait to see if the symptoms will go away. Do not drive yourself to the hospital. Summary Gastritis is irritation and swelling (inflammation) of the stomach. You must get help for this condition. If you do not get help, your stomach can bleed, and you can get sores (ulcers) in your stomach. You can be treated with medicines for germs or medicines to block too much acid in your stomach. This information is not intended to replace advice given to you by your health care provider. Make sure you discuss any questions you have with your health care provider. Document Revised: 09/07/2021 Document Reviewed: 09/07/2021 [employer] Patient Education 2022 [employer] 09/16/2023 08:49:01 Endoscopy, Care After Procedure [facility] ([facility]) Endoscopy Care After Procedure Please read the instructions outlined below and refer to this sheet in the next few weeks. These discharge instructions provide you with general information on caring for yourself after you leave the hospital. Your doctor may also give you specific instructions. While your treatment has been planned according to the most current medical practices available, unavoidable complications occasionally occur. If you have any problems or questions after discharge, please call your doctor. ACTIVITY You may resume your regular activity but move at a slower pace for the next 24 hours. Take frequent rest periods for the next 24 hours. Walking will help expel (get rid of) the air and reduce the bloated feeling in your abdomen. No driving for 24 hours (because of the anesthesia (medicine) used during the test). You may shower. Do not sign any important legal documents or operate any machinery for 24 hours (because of the anesthesia used during the test). NUTRITION Drink plenty of fluids. You may resume your normal diet. Begin with a light meal and progress to your normal diet. Avoid alcoholic beverages for 24 hours or as instructed by your caregiver. MEDICATIONS You may resume your normal medications unless your caregiver tells you otherwise. WHAT YOU CAN EXPECT TODAY You may experience abdominal discomfort such as a feeling of fullness or gas pains. FOLLOW-UP Your doctor will discuss the results of your test with you. SEEK IMMEDIATE MEDICAL ATTENTION IF ANY OF THE FOLLOWING OCCUR: Excessive nausea (feeling sick to your stomach) and/or vomiting. Severe abdominal pain and distention (swelling). Trouble swallowing. Temperature over 100 F (37.8 C). Rectal bleeding or vomiting of blood. Document Released: 12/16/2004 Document Re-Released: 10/26/2006 [employer] Patient Information [place]. Follow Up Care 09/10/2023 09:54:49 With:Jessee Nina Address: [address] [place] [address], [address] [place] [address]- [phone] Business (1) When:1 to 2 weeks Comments:Call for any problems. [facility] 09-16-2023 Note Endoscopy Care After Procedure Please read the instructions outlined below and refer to this sheet in the next few weeks. These discharge instructions provide you with general information on caring for yourself after you leave the hospital. Your doctor may also give you specific instructions. While your treatment has been planned according to the most current medical practices available, unavoidable complications occasionally occur. If you have any problems or questions after discharge, please call your doctor. ACTIVITY ? You may resume your regular activity but move at a slower pace for the next 24 hours. ? Take frequent rest periods for the next 24 hours. ? Walking will help expel (get rid of) the air and reduce the bloated feeling in your abdomen. ? No driving for 24 hours (because of the anesthesia (medicine) used during the test). ? You may shower. ? Do not sign any important legal documents or operate any machinery for 24 hours (because of the anesthesia used during the test). NUTRITION ? Drink plenty of fluids. ? You may resume your normal diet. ? Begin with a light meal and progress to your normal diet. ? Avoid alcoholic beverages for 24 hours or as instructed by your caregiver. MEDICATIONS ? You may resume your normal medications unless your caregiver tells you otherwise. WHAT YOU CAN EXPECT TODAY ? You may experience abdominal discomfort such as a feeling of fullness or ?gas? pains. FOLLOW-UP ? Your doctor will discuss the results of your test with you. seek immediate medical attention if any of the following occur: ? Excessive nausea (feeling sick to your stomach) and/or vomiting. ? Severe abdominal pain and distention (swelling). ? Trouble swallowing. ? Temperature over 100 F (37.8? C). ? Rectal bleeding or vomiting of blood. Document Released: 12/16/2004 Document Re-Released: 10/26/2006 ExitCare? Patient Information ?2009 [employer]. Infectious Disease Gastritis, Adult Gastritis is irritation and swelling (inflammation) of the stomach. There are two kinds of gastritis: ? Acute gastritis. This kind develops quickly. ? Chronic gastritis. This kind is much more common. It develops slowly and lasts for a long time. It is important to get help for this condition. If you do not get help, your stomach can bleed, and you can get sores (ulcers) in your stomach. What are the causes? This condition may be caused by: ? Germs that get to your stomach and cause an infection. ? Drinking too much alcohol. ? Medicines you are taking. ? Having too much acid in the stomach. ? Having a disease of the stomach. Other causes may include: ? An allergic reaction. ? Some cancer treatments (radiation). ? Smoking cigarettes or using products that contain nicotine or tobacco. In some cases, the cause of this condition is not known. What increases the risk? ? Having a disease of the intestines. ? Having Crohn's disease. ? Using aspirin or ibuprofen and other NSAIDs to treat other conditions. ? Stress. What are the signs or symptoms? ? Pain in your stomach. ? A burning feeling in your stomach. ? Feeling like you may vomit (nauseous). ? Vomiting or vomiting blood. ? Feeling too full after you eat. ? Weight loss. ? Bad breath. ? Blood in your poop (stool). In some cases, there are no symptoms. How is this treated? This condition is treated with medicines. The medicines that are used depend on what caused the condition. You may be given: ? Antibiotic medicine, if your condition was caused by an infection from germs. ? H2 blockers and similar medicines, if your condition was caused by too much acid in the stomach. Treatment may also include stopping the use of certain medicines, such as aspirin or ibuprofen. Follow these instructions at home: Medicines ? Take lafh-ftf-zhhoadj and prescription medicines only as told by your doctor. ? If you were prescribed an antibiotic medicine, take it as told by your doctor. Do not stop taking it even if you start to feel better. Alcohol use ? Do not drink alcohol if: ? Your doctor tells you not to drink. ? You are , may be , or are planning to become . ? If you drink alcohol: ? Limit your use to: ? 0?1 drink a day for women. ? 0?2 drinks a day for men. ? Know how much alcohol is in your drink. In the [place] one drink equals one 12 oz bottle of beer (355 mL), one 5 oz glass of wine (148 mL), or one 1? oz glass of hard liquor (44 mL). General instructions ? Eat small meals often, instead of large meals. ? Avoid foods and drinks that make you feel worse. ? Drink enough fluid to keep your pee (urine) pale yellow. ? Talk with your doctor about ways to manage stress. You can exercise or do deep breathing, meditation, or yoga. ? Do not smoke or use any products that contain nicotine or tobacco. If you need help quitting, ask your do (more content not included)... [facility] 07-22-2022 History of Present illness Narrative ----- Friday, July 22, 2022 at 11:19:05 AM ----- ----- Provider: Grayson Ku, Resident -- Clinic: [facility] ----- OR EVALUATION Patient presents for evaluation to determine best course of treatment due to history of No significant medical history. Infantile Cerebral Palsy Patient is accompanied by caregiver for today's appointment. Patient partially cooperated for a partial intraoral exam. Clinical findings: Periodontitis- requires SRP, Generalized Deposition of heavy calculus. gingivitis It is best suited that this patient have full comprehensive examination, radiographs and treatment completed in the OR setting. Explained that the patient will be added to our OR waiting list, and the legal guardian will be contacted once a time slot becomes available. Legal Guardian is Gabriela Rodriguez( Mother ): [phone] Ashlie Sotelo [phone] Contact information; [facility] [phone] Extension# [id number] Next Visit: OR ----- Signed on Friday, July 22, 2022 at 12:31:54 PM ----- ----- Provider: Charbel Jain DDS -- Clinic: [facility] ----- documented in this encounter [facility] 07-14-2020 Note Patient Outreach ([place] VAMN) VEE SOTELO ([id number]) 1985 F NFR Date Time Provider Department 07/14/20 PUMA SPEAR During your visit today, we recorded the following information about you: Allergies As of Date: 07/14/2020 Noted Allergy Reaction SEASONAL ALLERGIES 11/08/2010 16 - Unknown Date Reviewed: 07/05/2019 Reviewed by: Clover Ng Ma - Fully Assessed Order(s):SARS-COVID VACCINE 1ST DOSE APPT [12021WDS] Order #: [id number] FUTURE Prescriptions as of 07/14/2020 Sig: FLUTICASONE PROP.50 MCG SPRAY* Use in the nose twice daily a* CHOLECALCIFEROL (VITAMIN D3) * Take 1,000 Units by mouth onc* CLONAZEPAM 0.5 MG TABLET OYSTER SHELL CALCIUM 500 ORAL Take 500 mg by mouth once mackenzie* OXYCODONE 5 MG TABLET Take 1 tablet by mouth every * DIAZEPAM 5 MG TABLET Take 0.5 tablets by mouth fredy* CLONAZEPAM 0.5 MG DISINTEGRAT* Take 0.25 mg by mouth twice d* OYSTER SHELL + D3 ORAL Take 1 tablet by mouth once d* QUETIAPINE 25 MG TABLET Take 12.5 mg by mouth once da* MUCINEX D ORAL Take 1-2 tablets by mouth fredy* RISPERIDONE 1 MG TABLET Take 1-1.5 mg by mouth three * DIVALPROEX 125 MG TABLET,SARA* Take 125 mg by mouth once mackenzie* * BENZTROPINE 0.5 MG TABLET Take 0.5 mg by mouth once mackenzie* * DIVALPROEX ER 500 MG TABLET,E* Take 500 mg by mouth once mackenzie* * ALENDRONATE 35 MG TABLET Take 35 mg by mouth once each* * FIBER-LAX ORAL Take 1 capsule by mouth daily* * FERROUS SULFATE 325 MG (65 MG* Take 325 mg by mouth once mackenzie* * LEVETIRACETAM 500 MG TABLET Take 500 mg by mouth twice da* * LORATADINE 10 MG TABLET Take 10 mg by mouth once lashell* * PREGABALIN 75 MG CAPSULE Take 75 mg by mouth three calvin* * LAMOTRIGINE 100 MG TABLET Take 100 mg by mouth twice da* * FAMOTIDINE 20 MG TABLET Take 20 mg by mouth once lashell* * NALTREXONE 50 MG TABLET Take 100 mg by mouth twice da* * SENNA-GEN ORAL Take 2 tablets by mouth daily* * MONTELUKAST 10 MG TABLET Take 10 mg by mouth once lashell* * LEVOTHYROXINE 50 MCG TABLET Take 50 mcg by mouth once mackenzie* * CHOLECALCIFEROL (VITAMIN D3) * Take 1,000 Units by mouth onc* * DOCUSATE SODIUM 100 MG CAPSULE Take 200 mg by mouth three ti* * ACETAMINOPHEN 325 MG TABLET Take 650 mg by mouth every 6 * * BISACODYL 10 MG RECTAL SUPPOS* 10 mg by RECTAL route once da* Problem List As Of Date 07/14/2020 Noted Resolved CEREBRAL PALSY NEC [G80.8] 06/17/2002 SURGERY FOLLOW-UP [V67.0] 10/04/2002 Crouched gait [R26.89] 12/09/2010 Hamstring tightness [M62.89] 12/09/2010 Cerebral palsy (HCC) [G80.9] 06/26/2015 Encounter Status:Closed by EPIC, PRODUSER on 07/17/20 [facility] Evaluation + Plan note No data available for this section [facility] Evaluation + Plan note Future Appointments Appointment Date:09/16/2023 08:00:00 AM Scheduled Provider: Location:[facility] Appointment Type:Surgery FT Future Scheduled TestsNM Gastric Emptying Study 09/10/[address] [facility] Evaluation + Plan note Future Appointments Appointment Date:09/23/2023 10:30:00 AM Scheduled Provider: Location:[facility] Appointment Type:NM Gastric Emptying Study (FT) Future Scheduled TestsNM Gastric Emptying Study 09/23/23 [facility] Evaluation note Diagnosis Caries- Primary Unspecified dental caries Preop testing- Primary Preoperative examination, unspecified Body mass index (BMI) 31.0-31.9, adult Caries Unspecified dental caries documented in this encounter [facility] No data available for this section [facility] data available for this section [facility] Summary Purpose Family History No Family History Records FoundNo Family History Records Found No data available for this section No data available for this section No data available for this section No data available for this section No Family History Records FoundNo Family History Records Found Advance Directives No Advanced Directives Records FoundNo Advanced Directives Records FoundNo Advanced Directives Records FoundNo Advanced Directives Records Found Additional Source Comments INFORMATION SOURCE (unrecogn ized section and content) DATE CREATED AUTHOR 06/15/2021 [facility] DATE CREATED AUTHOR AUTHOR'S ORGANIZ ATION 10/01/2022 [facility] DATE CREATED AUTHOR AUTHOR'S ORGANIZ ATION 09/28/[address] [facility] DATE CREATED AUTHOR AUTHOR'S ORGANIZ ATION 12/27/2023 [facility] Care Teams (unrecognized sec tion and content) Master Sonar Technician Relationship Specialty Start Date End Date Rm Goldman DDS [address] [place] [address] Resident Dentistry 02/21/20 Mony Adler, [employer] [address] [place] [address] ENGINEER TECHNICIAN Anesthesiology 11/16/20 Master Sonar Technician Relationship Specialty Start Date End Date Rm Goldman DDS [address] [place] [address] Resident Dentistry 02/21/20 Mony Adler APRN-CNP [address] [place] [address] [place] [address] ENGINEER TECHNICIAN Anesthesiology 11/16/20 Master Sonar Technician Relationship Specialty Start Date End Date Rm Goldman DDS [address] [place] [address] Resident Dentistry 02/21/20 Mony Adler APRN-CNP [address] [place] [address] [place] [address] [facility] Anesthesiology 11/16/20 FOR RECORDS PERTAINING TO PATIENTS WHO ARE OR HAVE BEEN ENROLLED IN A CHEMICAL DEPENDENCY/SUBSTANCEABUSE PROGRAM, SOME INFORMATION MAY BE OMITTED. This clinical summary was aggregated from multiple sources. Caution should be exercised in using it in the provision of clinical care. This summary normalizes information from multiple sources, and as a consequence, information in this document may materially change the coding, format and clinical context of patient data. In addition, data may be omitted in some cases. CLINICAL DECISIONS SHOULD BE BASED ON THE PRIMARY CLINICAL RECORDS. [facility] provides no warranty or guarantee of the accuracy or completeness of information in this document.
== END 2023-12-28 06:39 | disposition home or self-care (01) ==
LOC: LAB 06:39
PROVIDERS: PCP Family Medicine; Visit Provider Family Medicine
DX: Z79.899 Other long term (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 (principal)
CPT/HCPCS: 36415; 80164

== ENCOUNTER 2024-01-14 17:27 | Outpatient (REF) | payer MEDICAID, SELFPAY ==
--- OUTSIDE RECORDS SUMMARY | 2024-01-15 07:12 | XMS_ITS | CCD ---
Author Organization [facility] Care Team Providers Care French Instructor Name Role Phone Rm Goldman DDS Unavailable [...] Unavailable PINEDO, DR BALJIT Whaley Attending Unavailable IPNEDO, DR BALJIT Whaley Consulting Unavailable PINEDO, DR BALJIT Whaley Primary Care Unavailable PINEDO, DR BALJIT Whaley Admitting Unavailable PINEDO, DR BALJIT Whaley Consulting Unavailable PINEDO, DR BALJIT Whaley Primary Care Unavailable PINEDO, DR BALJIT Whaley Admitting Unavailable PINEDO, DR BALJIT Whaley Attending Unavailable BALJIT PINEDO Primary Care Physician Mocarlyleli, Mohamad A. Admitting Unavailable Mouchli, Mohamad A. Attending Unavailable Mouchli, Mohamad A. Referring Unavailable Mouchli, Mohamad A. Admitting Unavailable Mouchli, Mohamad A. Attending Unavailable Mouchli, Mohamad A. Referring Unavailable PINEDO, BALJIT Admitting Unavailable PINEDOBALJIT Attending Unavailable PINEDO, BALJIT Attending Unavailable PINEDO, BALJIT Admitting Unavailable Mouchli, Mohamad A. Attending Unavailable Rm Goldman DDS Unavailable Vitor ROLON-CAROLE, Mony Unavailable POONAM TALBERT Attending Unavailable PROVIDER, UNKNOWN Attending Unavailable PROVIDER, UNKNOWN Admitting Unavailable VÍCTOR GOLDBERG Attending Unavailable PROVIDER, UNKNOWN Admitting Unavailable PROVIDER, UNKNOWN Admitting Unavailable PROVIDER, UNKNOWN Attending Unavailable Allergies Allergy Classification Reported Allergen(s) Allergy Type Date of Onset Reaction(s) Facility (1 source) No Known Medication Allergies; Translations: [No Known Medication Allergies] Propensity to adverse reactions (disorder) [facility] Repository (8 sources) Diazepam; Translations: [DIAZEPAM] Propensity to adverse reactions to drug 4 [facility] (8 sources) diphenhydrAMINE; Translations: [DIPHENHYDRAMINE ] Drug Allergy 4 [facility] (8 sources) trichloroacetald ehyde; Translations: [CHLORAL HYDRATE] Drug Allergy 4 [facility] Medications Current Medications Medication Drug Class(es) Dates Sig (Normalized) Sig (Original) Calcium Carbonate (12 sources) Start: 09-10-2023 Maalox Antacid Barrier mg, Chewed, Daily, Refills(s) 0 Start Date: 09/10/23 Status: Ordered Oyster Shell 500 MG TABS Take by mouth. Active carBAMazepine (8 sources) Mood Stabilizer Start: 09-10-2023 carbamazepine Oral, TID, Refills(s) 0, Seizure Start Date: 09/10/23 Status: Ordered Start: 09-10-2023 carbamazepine Refills(s) 0 Start Date: 09/10/23 Status: Ordered End: 01-08-2024 carbamazepine (TEGRETOL) 200 MG tablet Take 100 mg by mouth 3 times daily. 01/08/2024 Discontinued (Discontinued by another Health Care Provider) chlorhexidine gluconate 1.2 mg/ml mouthwash (13 sources) Start: 01-08-2024 End: 01-08-2024 take 15 mL by mouth twice daily chlorhexidine (Peridex) 0.12 % oral solution Swish mouth with 15 mL by mouth 2 times daily. DO NOT SWALLOW 473 mL 3 01/08/2024 Active Start: 09-10-2023 take 0.018 g by mout h twice daily chlorhexidine 0.12% mucous membrane liquid 0.018 gm, 15 mL, Oral, BID, 480 mL, Refill(s) 0 Start Date: 09/10/23 Status: Ordered cholecalciferol 0.025 mg oral tablet (9 sources) Vitamin D Cholecalciferol (VITAMIN D) 1000 units TABS Take by mouth. Active cloNIDine hydrochloride 0.1 mg oral tablet (7 sources) Central alpha-2 Adrenergic Agonist take 1 tablet by mouth twice daily cloNIDine (CATAPRES) 0.1 MG tablet Take 0.1 mg by mouth 2 times daily. Active famotidine 20 mg oral tablet (17 sources) Histamine-2 Receptor Antagonist Start: 09-10-19 take 20 mg by mouth once daily Pepcid 20 mg, Oral, Daily, Refills(s) 0, Control of stomach acid Start Date: 09/10/23 Status: Ordered Start: 09-10-2023 Pepcid Refills (s) 0 Start Date: 09/10/23 Status: Ordered Start: 11-29-2009 famotidine Ref ills(s) 0 Start Date: 11/29/09 Status: Ordered ferrous sulfate (12 sources) Start: 11-29-2009 ferrous sulfat e Oral, Refills(s) 0 Start Date: 11/29/09 Status: Ordered End: 01-08-2024 take 1 tablet by mouth once daily ferrous sulfate 325 (65 Fe) MG tablet Take 325 mg by mouth daily. 01/08/2024 Discontinued (Discontinued by another Health Care Provider) Fiber (5 sources) Start: 11-29-2009 Fiber Lax Oral , Refills(s) 0 Start Date: 11/29/09 Status: Ordered Start: 11-29-2009 Fiber Lax Refi lls(s) 0 Start Date: 11/29/09 Status: Ordered Levetiracetam (15 sources) Start: 09-10-2023 levetiracetam Refills(s) 0 Start Date: 09/10/23 Status: Ordered Start: 11-29-2009 levetiracetam Oral, BID, Refills(s) 0, Seizure Start Date: 11/29/09 Status: Ordered Start: 11-29-2009 levetiracetam Refills(s) 0 Start Date: 11/29/09 Status: Ordered take 1 tablet by erica th twice daily levETIRAcetam (KEPPRA) 500 MG tablet Take 500 mg by mouth 2 times daily. Active levothyroxine sodium 0.075 mg oral tablet (14 sources) l-Thyroxine take 1 tablet by mouth once daily in the evening levothyroxine (SYNTHROID) 75 MCG tablet Take 75 mcg by mouth daily. Take at 8 pm Active End: 01-08-2024 take 1 tablet by mouth once daily levothyroxine (SYNTHROID) 112 MCG tablet Take 112 mcg by mouth daily. 01/08/2024 Discontinued (Discontinued by another Health Care Provider) linaclotide 0.29 mg oral capsule (12 sources) Guanylate Cyclase-C Agonist Start: 09-10-2023 take 1 ug by mouth once daily Linzess 290 mcg oral capsule mcg cap(s), Oral, Daily, Refills(s) 0 Start Date: 09/10/23 Status: Ordered Start: 10-17-2020 take 1 capsule by [facility] once daily Linzess 145 MCG CAPS capsule Take 145 mcg by mouth daily. 10/17/2020 Active Loratadine (14 sources) Start: 11-29-2009 loratadine 10 mg, Refills(s) 0 Start Date: 11/29/09 Status: Ordered take 1 tablet by mouth once lashell y loratadine (CLARITIN) 10 MG tablet Take 10 mg by mouth daily. Active lurasidone (6 sources) Atypical Antipsychotic Start: 09-10-2023 lurasid one Oral, Daily, Refills(s) 0 Start Date: 09/10/23 Status: Ordered take 1 tablet by mouth twice mackenzie ly lurasidone (LATUDA) 40 MG tablet Take 40 mg by mouth 2 times a day. Active 1 ml medroxyPROGESTERone acetate 150 mg/ml injection (7 sources) Progestin medroxyPROGESTER one (Depo-Provera) 150 MG/ML injection Inject 150 mg into the muscle once. Active montelukast (12 sources) Leukotriene Receptor Antagonist Start: 09-10-19 24 montelukast Daily, Refills(s) 0 Start Date: 09/10/23 Status: Ordered take 1 tablet by mouth once lashell y montelukast (SINGULAIR) 10 MG tablet Take 10 mg by mouth daily. Active Naltrexone (14 sources) Opioid Antagonist Start: 11-29-2009 naltrexone R efills(s) 0 Start Date: 11/29/09 Status: Ordered take 2 tablets by mouth twice da dany naltrexone 50 MG tablet Indications: take 2 tablets twice a day Take 50 mg by mouth daily Indications: take 2 tablets twice a day. Active 2 ml ondansetron 2 mg/ml injection (11 sources) Serotonin-3 Receptor Antagonist Start: 01-08-2024 End: 01-08-2024 take 4 mg intravenously once as needed for nausea 4 mg, Intravenous Push, PACU ONCE PRN, Starting on Thu01/08/24 at 1128, Until Thu01/08/24 at 1727, Nausea, Vomiting, PACU Now Start: 09-10-2023 Zofran Refills (s) 0 Start Date: 09/10/23 Status: Ordered take 1 tablet by erica every twelve hours as needed for nausea ondansetron (Zofran) 4 MG tablet Take 4 mg by mouth every 12 hours as needed for Nausea. Active pantoprazole 40 mg extended release oral tablet (6 sources) Proton Pump Inhibitor Start: 09-10-2023 pantoprazole 40 mg, Oral, Refills(s) 0, Control of stomach acid Start Date: 09/10/23 Status: Ordered Start: 09-10-2023 pantoprazole R efills(s) 0 Start Date: 09/10/23 Status: Ordered take 40 mg by mouth once daily p antoprazole (Protonix) 40 MG PACK oral packet Take 40 mg by mouth daily. Active pregabalin (12 sources) Start: 09-10-2023 pregabalin Ora l, TID, Refills(s) 0, Neuropathy Start Date: 09/10/23 Status: Ordered Start: 09-10-2023 pregabalin Ora l, Refills(s) 0 Start Date: 09/10/23 Status: Ordered take 1 capsule by mo [facility] three times daily pregabalin (LYRICA) 75 MG capsule Take 75 mg by mouth 3 times daily. Active Phenergan (3 sources) Phenothiazine Start: 09-10-2023 Phenergan Oral , PRN as needed for nausea/vomiting, Refills(s) 0 Start Date: 09/10/23 Status: Ordered Start: 09-10-2023 Phenergan Refi lls(s) 0 Start Date: 09/10/23 Status: Ordered Risperidone (19 sources) Atypical Antipsychotic Start: 11-29-2009 risperi done Oral, BID, Refills(s) 0 Start Date: 11/29/09 Status: Ordered Start: 11-29-2009 risperidone BI D, Refills(s) 0 Start Date: 11/29/09 Status: Ordered End: 01-08-2024 take 1 tablet by mouth twice daily at bedtime risperiDONE (RISPERDAL) 0.5 MG tablet Indications: take one tablet by mouth twice a day at bedtime Take 0.5 mg by mouth 2 times daily Indications: take one tablet by mouth twice a day at bedtime. 1 tab noon and 1 tab hs 01/08/2024 Discontinued (Discontinued by another Health Care Provider) End: 01-08-2024 take 1 tablet by mouth three times daily risperiDONE (RISPERDAL) 1 MG tablet Indications: take one tablet by mouth 3 times daily Take 1 mg by mouth 2 times daily Indications: take one tablet by mouth 3 times daily. 01/08/2024 Discontinued (Discontinued by another Health Care Provider) sennosides, HALF-WAY (12 sources) Start: 09-10-2023 senna Oral, BI D, Refills(s) 0, Constipation Start Date: 09/10/23 Status: Ordered Start: 09-10-2023 senna Refills( s) 0 Start Date: 09/10/23 Status: Ordered take 1 tablet by erica th once daily senna (SENNA-TABS) 8.6 MG TABS tablet Indications: daily at 0800 and 2000 Take 1 Tablet by mouth Indications: daily at 0800 and 2000. Active Depakote (20 sources) Mood Stabilizer, Anti-epileptic Agent Start: 11-29-2009 Depakote Oral, BID, Refills(s) 0, Seizure Start [...] 2 tab hs Active VITAMIN D ORAL (9 sources) take 1000 [IU] by mo uth [...] ills(s) 0 Start Date: 09/10/23 Status: Ordered Completed/Discontinued Medications Medication Drug Class(es) Dates Sig (Normalized) Sig (Original) alendronic acid 35 mg oral tablet (7 sources) Bisphosphonate End: 01-08-2024 take 1 tablet by mouth every week alendronate (FOSAMAX) 35 MG tablet Take 35 mg by mouth once weekly. 01/08/2024 Discontinued (Discontinued by another Health Care Provider) busPIRone hydrochloride 15 mg oral tablet (5 sources) End: 01-08-2024 take 1 tablet by mouth twice daily busPIRone (BUSPAR) 15 MG tablet Take 15 mg by mouth 2 times daily. 01/08/2024 Discontinued (Discontinued by another Health Care Provider) cabergoline 0.5 mg oral tablet (5 sources) Ergot Derivative End: 01-08-2024 cabergoline (DOSTINEX) 0.5 MG tablet Take 0.5 mg by mouth. 01/08/2024 Discontinued (Discontinued by another Health Care Provider) calcium chloride 0.0014 meq/ml / potassium chloride 0.004 meq/ml / sodium chloride 0.103 meq/ml / sodium lactate 0.028 meq/ml injectable solution (2 sources) Start: 01-08-2024 Intravenous, at 125 mL/hr, CONTINUOUS, Starting on Thu01/08/24 at 1200, Until Discontinued calcium polycarbophil (7 sources) End: 01-08-2024 take 20 [oz_av] by mouth once daily at bedtime Calcium Polycarbophil (FIBER-LAX ORAL) Indications: daily at bedtime with 20 oz of water Take by mouth Indications: daily at bedtime with 20 oz of water. 01/08/2024 Discontinued (Discontinued by another Health Care Provider) take 20 [oz_av] by m outh once [...] with 20 oz of water. 0 Active chlorproMAZINE hydrochloride 50 mg oral tablet (5 sources) Phenothiazine End: 01-08-2024 take 50 mg by mouth at bedtime CHLORPROMAZINE HCL ORAL Take 50 mg by mouth at bedtime. 01/08/2024 Discontinued (Discontinued by another Health Care Provider) clonazePAM 0.5 mg oral tablet (5 sources) Benzodiazepine End: 01-08-2024 take 1 tablet by mouth twice daily clonazePAM (KlonoPIN) 0.5 MG tablet Take 0.5 mg by mouth 2 times daily. 01/08/2024 Discontinued (Discontinued by another Health Care Provider) docusate sodium 100 mg oral capsule (7 sources) End: 01-08-2024 take 2 capsules by mouth three times daily docusate sodium (COLACE) 100 MG capsule Indications: take 2 capsules by mouth 3 times daily Take 100 mg by mouth Indications: take 2 capsules by mouth 3 times daily. 01/08/2024 Discontinued (Discontinued by another Health Care Provider) doxazosin 4 mg oral tablet (5 sources) alpha-Adrenergic Gaby End: 01-08-2024 take 1 tablet by mouth once daily doxazosin (CARDURA) 4 MG tablet Take 4 mg by mouth daily. 01/08/2024 Discontinued (Discontinued by another Health Care Provider) guanFACINE 1 mg oral tablet (5 sources) Central alpha-2 Adrenergic Agonist End: 01-08-2024 take 1 tablet by mouth at bedtime guanfacine (TENEX) 1 MG tablet Take 1 mg by mouth at bedtime. 01/08/2024 Discontinued (Discontinued by another Health Care Provider) iloperidone 2 mg oral tablet (5 sources) Atypical Antipsychotic End: 01-08-2024 Iloperidone (Fanapt) 2 MG TABS Take by mouth. 01/08/2024 Discontinued (Discontinued by another Health Care Provider) lamoTRIgine 100 mg oral tablet (7 sources) Mood Stabilizer, Anti-epileptic Agent End: 01-08-2024 take 1 tablet by mouth three times daily lamoTRIgine (LAMICTAL) 100 MG tablet Indications: take one tablet by mouth 3 times daily Take 100 mg by mouth Indications: take one tablet by mouth 3 times daily. 01/08/2024 Discontinued (Discontinued by another Health Care Provider) metoprolol tartrate 100 mg oral tablet (5 sources) beta-Adrenergic Gaby End: 01-08-2024 take 1 tablet by mouth twice daily metoprolol (LOPRESSOR) 100 MG tablet Take 100 mg by mouth 2 times daily. 01/08/2024 Discontinued (Discontinued by another Health Care Provider) midazolam 2 mg/ml oral solution (1 source) Benzodiazepine Start: 01-08-2024 End: 01-08-2024 1 dose, Starting on Thu01/08/24 at 1333, Until Thu01/08/24 at 1339 1 ml naloxone hydrochloride 0.4 mg/ml injection (1 source) Opioid Antagonist Start: 01-08-2024 0.4 mg, Intravenous Push, PRN, Starting on Thu01/08/24 at 1128, Until Discontinued, Respiratory Rate Less Than 8 for adults and less than 12 for Peds or for suspected overdose, PACU Now 24 hr paliperidone 3 mg extended release oral tablet (5 sources) Atypical Antipsychotic End: 01-08-2024 take 2 tablets by mouth once daily paliperidone (INVEGA) 3 MG 24 hour tablet Take 6 mg by mouth daily. 01/08/2024 Discontinued (Discontinued by another Health Care Provider) sertraline 100 mg oral tablet (5 sources) Serotonin Reuptake Inhibitor End: 01-08-2024 take 1 tablet by mouth once daily sertraline (ZOLOFT) 100 MG tablet Take 100 mg by mouth daily. 01/08/2024 Discontinued (Discontinued by another Health Care Provider) 20 ml sodium chloride 9 mg/ml injection (1 source) Start: 01-08-2024 3 mL, Intravenous Push, PRN, Starting on Thu01/08/24 at 1128, Until Discontinued, For medication administration and blood draw, PACU Now traZODone hydrochloride 100 mg oral tablet (5 sources) Serotonin Reuptake Inhibitor End: 01-08-2024 take 1 tablet by mouth at bedtime trazodone (DESYREL) 100 MG tablet Take 100 mg by mouth at bedtime. 01/08/2024 Discontinued (Discontinued by another Health Care Provider) Problems Active Problems Problem Classification Problem Date Documented Da te Episodic/Chronic Attention-deficit, conduct, and disruptive behavior disorders (5 sources) Disruptive behavior disorder 07-29-2013 Chronic Biliary tract disease (5 sources) Biliary calculus 07-29-2013 Episodic Developmental disorders (5 sources) Severe intellectual disability 07-29-2013 Chronic Disorders usually diagnosed in infancy, childhood, or adolescence (5 sources) Autism spectrum disorder 07-29-2013 Chronic Epilepsy; convulsions (4 sources) Epilepsy, unspecified, not intractable, without status epilepticus; Translations: [EPILEPSY UNS NOT INTRACT W/O SE] Onset: 2 Chronic Epilepsy; convulsions (5 sources) Seizure disorder 07-29-2013 Episodic Impulse control disorders, NEC (5 sources) Impulse control disorder 07-29-2013 Chronic Mood disorders (1 source) Bipolar disorder, unspecified; Translations: [BIPOLAR DISORDER UNSPECIFIED] Onset: 2 Chronic Nausea and vomiting (1 source) Nausea and vomiting; Translations: [Nausea with vomiting, unspecified] Onset: 4 Episodic Open wounds of extremities (4 sources) Unspecified open wound, left foot, initial encounter; Translations: [UNS OPEN WOUND LEFT FOOT INITIAL] Onset: 3 Episodic Osteoporosis (5 sources) Osteoporosis 07-29-2013 Chronic Other aftercare (5 sources) Other [facility] (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; Translations: [OTH DISPENSING LEAD CURRENT DRUG THERAPY] Onset: 2 Episodic Other gastrointestinal disorders (5 sources) Constipation 07-29-2013 Episodic Other gastrointestinal disorders (1 source) Other constipation; Translations: [Other constipation] Onset: 4 Episodic Other nutritional; endocrine; and metabolic disorders (2 sources) Body mass index 30+ - obesity; Translations: [Body mass index (BMI) 31.0-31.9, adult] 12-26-2023 Chronic Other nutritional; endocrine; and metabolic disorders (1 source) Body mass index (BMI) 31.0-31.9, adult; Translations: [Body mass index (BMI) 31.0-31.9, adult] Onset: 4 Chronic Other nutritional; endocrine; and metabolic disorders (1 source) Abnormal weight loss; Translations: [Abnormal weight loss] Onset: 4 Episodic Other screening for suspected conditions (not mental disorders or infectious disease) (2 sources) Electrocardiogram abnormal; Translations: [Abnormal electrocardiogram [ECG] [EKG]] Onset: 4 12-28-2023 Episodic Other upper respiratory disease (5 sources) Seasonal allergy 11-29-2009 Chronic Paralysis (14 sources) Spastic cerebral palsy; 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] Onset: 3 02-03-2019 Chronic Residual codes; unclassified (1 source) Early satiety; Translations: [Early satiety] Onset: 4 Episodic Thyroid disorders (1 source) Hypothyroidism, unspecified; Translations: [HYPOTHYROIDISM UNSPECIFIED] Onset: 3 Chronic Unclassified (5 sources) Bipolar (qualifier value) 08-26-2010 Past or Other Problems Problem Classification Problem Date Documented Date Episodic/Chronic Disorders of teeth and jaw (20 sources) Dental caries; Translations: [Dental caries, unspecified] Onset: 02-09-2019 10-12-2020 Episodic Other aftercare (8 sources) Surgical follow-up; Translations: [Encounter for follow-up examination after completed treatment for conditions other than malignant neoplasm] Onset: 10-04-2002 07-22-2022 Episodic Other connective tissue disease (8 sources) Finding of thigh; Translations: [Other specified disorders of muscle] Onset: 12-09-2010 07-22-2022 Episodic Other nervous system disorders (8 sources) Germania gait; Translations: [Other abnormalities of gait and mobility] Onset: 12-09-2010 07-22-2022 Episodic Results Test Name Value Interpretation Reference Range Facility Telephone Encounteron 2023 Pullboat Engineer Authentication Interface Message Text pt was seen in OR 01/08/24 , Stacie Montalvo DMD recommended that the pt be seen by [facility] fro care AND follow up. in progess notes it states Referral placed to [facility] but NO referral can be found in pt's chart. please place referral for oral surgery. Message sent to [facility] Kary on January 13 2024 board. Message placed on board 01/11/24 @ 1152 am Normal [facility] [employer] [facility] Anesthesia Postprocedure Felicia [email or web address] 01-08-2024 Pullboat Engineer Authentication Interface Message Text Anesthesia Postoperative Assessment: Vital Signs (most recent): BP 94/26 (BP Location: left arm) Pulse 84 Temp 36.7 ???C (98.1 ???F) (Temporal) Resp 22 Ht 4' 10 (1.473 m) Wt 153 lb (69.4 kg) SpO2 96% BMI 31.98 kg/m??? Anesthesia Post Evaluation Level of consciousness: awake Post-procedure exam normal. Body temperature, hydration status, PONV and pain evaluated and addressed. Pain management: adequate Hydration status: normal PONV:No nausea/vomiting reported Cardiopulmonary status stable Respiratory status: acceptable Cardiovascular status: acceptable ANESTHESIA NOTABLE EVENTS: No notable events documented. Normal [facility] [employer] [facility] Anesthesia Preprocedure Eval uationon 01-08-2024 Pullboat Engineer Authentication Interface Message Text ASA: 3 No history of anesthetic complications NPO status: Greater than 8 hours Past Medical History and Review of Systems Pulmonary - negative ROS (-) non-smoker Dental ROS (+) teeth problems broken and missing Comment: dental caries Endo (+) hypothyroidism, obesity (BMI = 32) Neuro/Psych (+) seizures (keppra treatment), cerebral palsy, intellectual disability (severe) Comment: - Autism Cardiovascular (+) Surgical risk: intermediate; Cardiac condition: no apparent ECG reviewed Comment: - EKG 12/25/2023: Normal sinus rhythm. Nonspecific T wave abnormality. Abnormal ECG. No previous ECGs available Confirmed by LORENZA PARKS ([id number]) on 12/28/2023 8:11:02 PM GI/Hepatic/Renal Comment: - S/P cholecystectomy 2009 Heme/Other - negative ROS Other ROS: - Hx. Of dental restorations - Seasonal allergies - Gabriela Rodriguez (mother--phone-- [phone]) is legal guardian Physical Exam Airway Mallampati: unable to assess Dental PE (+) chipped teeth and missing teeth (dental caries) Pulmonary - pulmonary exam normal Comment: Chest clear to auscultation bilaterally Cardiovascular - cardiovascular exam normal Comment: RRR with S1S2; no murmurs, gallops, or rubs Neuro Disoriented and motor deficit Comment: Cerebral palsy Plan Anesthesia plan: general; (ETT) Anesthesia risks / alternatives discussed pre-op (Anesthesia consent scanned into [employer].) Questions answered / anesthesia plan accepted (Anesthesia consent scanned into [employer].) Past medical history, surgical history, allergies, and medications reviewed and Pertinent laboratory tests, EKG, imaging, and consults reviewed Attestation: Anesthesia options were discussed with the patient and/or legal insurance sales representative. The risks, benefits and alternatives were reviewed. Questions regarding anesthesia were answered. Patient and/or legal insurance sales representative knows such anesthetics and procedures may be performed by Resident physicians, Certified Anesthesiologist Assistants, or Certified Nurse Anesthetists under the supervision of a physician. The patient /or the patient's legal insurance sales representative agree with the plan for anesthesia. Comment: Anesthesia consent scanned into [employer]. [employer] Normal [facility] Pullboat Engineer Authentication Interface Message Text Patient taken to PACU. Patient was awake, comfortable, and stable on arrival. Anesthesia Transfer of Care Note Past Medical History: Past Medical History: Diagnosis Date ADHD (attention [...] 01/25/19 Severe intellectual disability OSH H+P 01/25/19 Sleep Apnea/Positive STOP-BANG: No Problem List: Patient Active Problem List: Other specified infantile cerebral palsy [G80.8] Dental caries [K02.9] Dental decay [K02.9] Hamstring tightness [M62.89] Examination following surgery [Z09] Crouched gait [R26.89] Caries [K02.9] Past Surgical History: Review of patient's past surgical history indicates: CHOLECYSTECTOMY (2008) OSH H+P 01/25/19 DENTAL RESTORATIONS (02/11/2019) Procedure: DENTAL RESTORATIONS; Surgeon: Fernando Kurtz DDS; Location: [facility] [place]; Service: Dental DENTAL RESTORATIONS (11/05/2020) Procedure: DENTAL RESTORATIONS; Surgeon: Dru Friedman DDS; Location: [facility] [place]; Service: Dental Allergies: Benadryl [diphenhydramine], Chloral hydrate, and Valium [diazepam] Basic Operating Room Facts: Surgeon(s): Stacie Torres DMD Anesthesiologist: Justin Shin MD CAA: Eduarda James CAA Reproduction Machine Loader: Dania Melaar MD DENTAL RESTORATIONS Intraoperative Events: No acute event ASA: 3 EBL: Not documented Urine Not documented Lactated Ringers and NaCl 0.9%: Fluid Totals (Filter: LR and NaCl 0.9% Medications Shown) Medication Calculated Total Lactated Ringers 700 mL / 1 bag Cell Saver: Not documented Blood Volume Values: Blood Products None MTP Blood: MTP PRBC: Not documented MTP FFP: Not documented MTP PLT: Not documented MTP Cryo: Not documented MTP Whole Blood: Not documented Current Vasoactive Medications: {Vasoactive Medications: None Lines, Drains, Airways Peripheral IV Access: 01/08/24 1558 22 gauge Right Forearm (Active) Site Assessment WN 01/08/24 1558 Infusion Status Port #1 Infusing 01/08/24 1558 Airway Insertion Details [REMOVED] Advanced Airway: ETT, Nasal;Cuffed #6 (Removed) 01/08/24 1433 Pre-Oxygenation/ Induction: Mask Rapid Sequence Induction?: Mask Ventilation: Easy;w/nasal airway Blade Type: Mac Blade Size: 3 Visualization: Grade 1 Airway Type: ETT, Nasal;Cuffed Airway Size: #6 Post Insertion Assessment: Confirmation: Equal bilateral breath sounds, CO2 confirmed # Attempts >1: Special Equipment: Present on Admission?: Previously Removed / Not Present: Removal Reason: Not Removed at Discharge: Removed 01/08/24 1546 Location (cm) 26 01/08/24 1433 Measured from: Naris 01/08/24 1433 Secured via: Taped 01/08/24 1433 Site Assessment WN 01/08/24 1433 All non-working IVs have been removed: N/A Laboratory Data: CBC (last 3 years, up to 8 values) 12/25/2023 10:41 AM WBC 5.3 RBC 3.48 Hgb 10.8 Hct 33.5 MCV 96 RDW 16.1 Plt 425 BMP (last 3 years, up to 8 values) 12/25/2023 10:41 AM Na 134 K 4.4 Cl 102 CO2 23 Gap 13 Glu 85 BUN 7 Cr 0.36 Ca 9.0 eGFR 133 Basic Metabolic Panel No lab values to display. No results found for: INR No result for BNP LFT's (last 3 years, up to 8 values) No lab values to display. Arterial Blood Gases None Hand off Completed: Yes 1. The patient was identified. 2. Pertinent medical history was relayed. 3. A brief discussion was had about any pertinent surgical/ procedural issues. 4. Intraoperative/ anesthetic management issue and concerns were discussed. 5. Plans for the early post-operative period relayed. 6. An opportunity for questions and acknowledgment of understanding of the report was received. Justin Shin MD Normal The [facility] Blood Attestationon 01-08-20 Pullboat Engineer Authentication Interface Message Text Blood Attestation: ATTESTATION OF INFORMED CONSENT FOR BLOOD: The transfusion of blood and/or blood components were discussed with the patient and/or legal insurance sales representative. The risks, benefits and alternatives were reviewed. Questions regarding blood transfusions were answered. The patient /or the patient's legal insurance sales representative agree with the plan for transfusion of blood and/or blood components. Normal The [facility] Brief Operative Noteon 01-07 Pullboat Engineer Authentication Interface Message Text Brief Operative Note PHE OR 3 Vee Sarabia 38 year old female Surgical Contact Serial Number: [id number] Preoperative Diagnosis: ADHD (attention deficit hyperactivity disorder) ([facility]) 10/08/2007 Anorexia 03/16/2008 Cerebral palsy ([facility]) 10/08/2007 Late effect of adverse effect of drug, medical or biological substance 05/02/2009 Mental impairment ([facility]) 10/08/2007 Mental retardation Other bipolar disorder ([facility]) 10/08/2007 Other conduct disorders ([facility]) 10/08/2007 Seizure disorder ([facility]) 10/08/2007 Postoperative Diagnosis: ADHD (attention deficit hyperactivity disorder) ([facility]) 10/08/2007 Anorexia 03/16/2008 Cerebral palsy ([facility] 10/08/2007 Late effect of adverse effect of drug, medical or biological substance 05/02/2009 Mental impairment ([facility] 10/08/2007 Mental retardation Other bipolar disorder ([facility]) 10/08/2007 Other conduct disorders ([facility]) 10/08/2007 Seizure disorder ([facility]) 10/08/2007 Procedures: Full mouth X-ray [29467] Full mouth cleaning [67462] Restorations [26179] Surgeon(s): Surgeon(s): Stacie Torres DMD Yoris, Orlando, DDS Staff: Tire Finisher Nurse: Gabriel Hinkle Display Carver: Chandler Parham DDS Anesthesia: General Anesthesiologist: Justin Shin MD Anesthesia Staff: Eduarda James CAA Specimen(s): * No specimens in log * Estimated Blood Loss: less than 5 cc Lines/Drains: * No LDAs found * Temporarily Retained Foreign Object: No Findings: Normal Complications: None Status at end of surgery: Stable Activity: weight bearing as tolerated Surgical wound class: No wound. Patient Class: Outpatient Surgery. Is this a patient scheduled as an outpatient that needs to be admitted as an inpatient? No Dr. Torres was present in the OR for the critical portion of the procedure and procedure sign-out. Signed by Chandler Marin DDS 01/08/2024 1:48 PM Normal The [facility] HCG, QUANTITATIVEon 01-08-20 24 [facility] Interpretation and review of laboratory results Normal [facility] HCG < 0.6 Normal <5.0 [facility] Comment on above: Performed By: #### H CG #### [facility] [address] [place], [address] OP Noteon 01-08-2024 Pullboat Engineer Authentication Interface Message Text Operative Note PHE OR 3 Vee Sarabia 38 year old female Surgical Contact Serial Number: [id number] Preoperative Diagnosis: ADHD (attention deficit hyperactivity disorder) ([facility] 10/08/2007 Anorexia 03/16/2008 Cerebral palsy ([facility]) 10/08/2007 Late effect of adverse effect of drug, medical or biological substance 05/02/2009 Mental impairment ([facility]) 10/08/2007 Mental retardation Other bipolar disorder ([facility]) 10/08/2007 Other conduct disorders ([facility] 10/08/2007 Seizure disorder ([facility]) 10/08/2007 Postoperative Diagnosis: ADHD (attention deficit hyperactivity disorder) ([facility] 10/08/2007 Anorexia 03/16/2008 Cerebral palsy ([facility]) 10/08/2007 Late effect of adverse effect of drug, medical or biological substance 05/02/2009 Mental impairment ([facility]) 10/08/2007 Mental retardation Other bipolar disorder ([facility]) 10/08/2007 Other conduct disorders ([facility]) 10/08/2007 Seizure disorder ([facility]) 10/08/2007 Surgeon: Stacie Torres DMD Phd Intern Surgeon: Chandler Marin DDS Anesthesia: General- Nasal ETT Estimated Blood Loss: 5 cc IV Fluids: 700 cc Urine Output: Not measured. Findings: The patient was brought to the operating room and placed in the supine position on the operating room table. Following satisfactory induction of GA. The patient was intubated with a nasal endotracheal tube. She was then prepped and drapped in the usual sterile fashion for dental procedures. Full mouth series were then taken and an oral examination was completed. A moistened throat pack was then placed. Full mouth scaling and root planing was then performed. The radiographs were examined by the attending and the resident and used in conjunction with th oral exam to formulate a treatment plan. The restorative aspect of the treatment plan included the following # 9 MIDLF These restorations were placed following excavation of the carious lesions on each tooth. The remaining dentition was then polished with prophy paste. The oral cavity was irrigated and suctioned then the throat pack was removed. Fluoride treament was placed on the remaining dentition. The patient tolerated the procedure well was extubated in the operating room, and taken to the PACU in stable condition. Complications: None Status at end of surgery: Stable Medications: Outpatient Medications Marked as Taking for the 01/08/24 encounter (Hospital Encounter) Medication Sig Dispense Refill lurasidone (LATUDA) 40 MG tablet Take 40 mg by mouth 2 times a day. pantoprazole (Protonix) 40 MG PACK oral packet Take 40 mg by mouth daily. ondansetron (Zofran) 4 MG tablet Take 4 mg by mouth every 12 hours as needed for Nausea. cloNIDine (CATAPRES) 0.1 MG tablet Take 0.1 mg by mouth 2 times daily. VITAMIN D ORAL Take 1,000 Units by mouth daily. Linzess 145 MCG CAPS capsule Take 145 mcg by mouth daily. montelukast (SINGULAIR) 10 MG tablet Take 10 mg by mouth daily. naltrexone 50 MG tablet Take 50 mg by mouth daily Indications: take 2 tablets twice a day. Oyster Shell 500 MG TABS Take by mouth. senna (SENNA-TABS) 8.6 MG TABS tablet Take 1 Tablet by mouth Indications: daily at 0800 and 2000. famotidine (PEPCID) 20 MG tablet Take 20 mg by mouth daily. levETIRAcetam (KEPPRA) 500 MG tablet Take 500 mg by mouth 2 times daily. levothyroxine (SYNTHROID) 75 MCG tablet Take 75 mcg by mouth daily. Take at 8 pm loratadine (CLARITIN) 10 MG tablet Take 10 mg by mouth daily. pregabalin (LYRICA) 75 MG capsule Take 75 mg by mouth 3 times daily. divalproex (DEPAKOTE) 500 MG enteric coated tablet Take 500 mg by mouth 2 times daily Indications: take one tablet in the morning and 2 tablets at bedtime. 1 tab am and 2 tab hs divalproex (DEPAKOTE SPRINKLE) 125 MG CSDR capsule Take 125 mg by mouth Indications: take 2 capsules by mouth every morning. Dictated by: Chandler Marin DDS:Dr. Torres was present for the critical portions of the procedure. Chandler Marin DDS 01/08/2024 1:53 PM Normal The [facility] Progress Noteson 01-08-2024 Pullboat Engineer Authentication Interface Message Text [id number] Discharge instructions reviewed, caregiver states pt on mouth was at home therefore does not wish to wait for prescription Normal The [facility] Pullboat Engineer Authentication Interface Message Text ----- Monday, January 08, 2024 at 3:45:54 PM ----- ----- Provider: Jarrett Torres DMD -- Clinic: [facility] ----- Pt was seen in OR under general anesthesia. comp exam, FMX and 4 quads SRP completed. Topical fluoride applied. #8 MIDLF broken tooth restored with composite. #12,13,14 present with non- restorable cervical lesions interproximally. 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 Referral placed to [facility] See note attached. Operative Note PHE OR 3 Vee Sarabia 38 year old female Surgical Contact Serial Number: [id number] Preoperative Diagnosis: ADHD (attention deficit hyperactivity disorder) ([facility]) 10/08/2007 Anorexia 03/16/2008 Cerebral palsy ([facility]) 10/08/2007 Late effect of adverse effect of drug, medical or biological substance 05/02/2009 Mental impairment ([facility]) 10/08/2007 Mental retardation Other bipolar disorder ([facility]) 10/08/2007 Other conduct disorders ([facility]) 10/08/2007 Seizure disorder ([facility]) 10/08/2007 Postoperative Diagnosis: ADHD (attention deficit hyperactivity disorder) ([facility]) 10/08/2007 Anorexia 03/16/2008 Cerebral palsy ([facility]) 10/08/2007 Late effect of adverse effect of drug, medical or biological substance 05/02/2009 Mental impairment ([facility]) 10/08/2007 Mental retardation Other bipolar disorder ([facility]) 10/08/2007 Other conduct disorders ([facility]) 10/08/2007 Seizure disorder ([facility]) 10/08/2007 Surgeon: Stacie Torres DMD Phd Intern Surgeon: Chandler Marin DDS Anesthesia: General- Nasal ETT Estimated Blood Loss: 5 cc IV Fluids: 700 cc Urine Output: Not measured. Findings: The patient was brought to the operating room and placed in the supine position on the operating room table. Following satisfactory induction of GA. The patient was intubated with a nasal endotracheal tube. She was then prepped and drapped in the usual sterile fashion for dental procedures. Full mouth series were then taken and an oral examination was completed. A moistened throat pack was then placed. Full mouth scaling and root planing was then performed. The radiographs were examined by the attending and the resident and used in conjunction with th oral exam to formulate a treatment plan. The restorative aspect of the treatment plan included the following # 9 MIDLF These restorations were placed following excavation of the carious lesions on each tooth. The remaining dentition was then polished with prophy paste. The oral cavity was irrigated and suctioned then the throat pack was removed. Fluoride treament was placed on the remaining dentition. The patient tolerated the procedure well was extubated in the operating room, and taken to the PACU in stable condition. Complications: None Status at end of surgery: Stable Normal [facility] Anesthesia Preprocedure Eval uationon 01-07-2024 Pullboat Engineer Authentication Interface Message Text ASA: 3 Past Medical History and Review of Systems Pulmonary (-) non-smoker Dental Comment: dental caries Endo (+) hypothyroidism, obesity (BMI = 32) Neuro/Psych (+) seizures (keppra treatment), cerebral palsy, intellectual disability (severe) Comment: - Autism Cardiovascular (+) Surgical risk: intermediate; Cardiac condition: no apparent ECG reviewed Comment: - EKG 12/25/2023: Normal sinus rhythm. Nonspecific T wave abnormality. Abnormal ECG. No previous ECGs available Confirmed by LORENZA PARKS ([id number]) on 12/28/2023 8:11:02 PM GI/Hepatic/Renal Comment: - S/P cholecystectomy 2009 Heme/Other Other ROS: - Hx. Of dental restorations - Seasonal allergies - Gabriela Rodriguez (mother--phone-- [phone]) is legal guardian Physical Exam Airway Dental Dentition: dental caries. Pulmonary Cardiovascular Neuro Disoriented and motor deficit Comment: Cerebral palsy Plan Anesthesia plan: general; (ETT) Anesthesia risks / alternatives discussed pre-op (Anesthesia consent scanned into [employer].) Questions answered / anesthesia plan accepted (Anesthesia consent scanned into [employer].) Past medical history, surgical history, allergies, and medications reviewed and Pertinent laboratory tests, EKG, imaging, and consults reviewed Attestation: Comment: Anesthesia consent scanned into [employer]. MHPATFORM Normal The [facility] EKG 12 LEAD - PERFORMon 12-16 Diagnosis Normal sinus rhythm Nonspecific T wave abnormality Abnormal ECG No previous ECGs available Confirmed by LORENZA PARKS ([id number]) on 12/28/2023 8:11:02 PM [facility] P wave Atrium by EKG 75 BPM [facility] P wave axis 23 degrees [facility] P-R Interval 130 ms [facility] Q-T interval 390 ms [facility] Q-T interval corrected 435 ms [facility] QRS axis 42 degrees [facility] QRS duration 86 ms [facility] T wave axis 16 degrees [facility] Telephone Encounteron 2023 Pullboat Engineer Authentication Interface Message Text Anesthesia consent scanned into [employer]. Normal [facility] BASIC METABOLIC PANELon 08 Anion gap [Moles/Vol] 13 mmol/L Normal 10-20 [facility] Comment on above: Performed By: #### C H8 #### [facility] [address] [place] [address], Calcium [Mass/Vol] 9.0 mg/dL Normal 8.6-10.3 [facility] Comment on above: Performed By: #### C H8 #### [facility] [address] [place] [address], Chloride [Moles/Vol] 102 mmol/L Normal 98-107 [facility] Comment on above: Performed By: #### C H8 #### [facility] [address] [place] [address], CO2 [Moles/Vol] 23 mmol/L Normal 21-31 [facility] Comment on above: Performed By: #### C H8 #### [facility] [address] [place] [address], Creatinine [Mass/Vol] 0.36 mg/dL Low 0.60-1.20 [facility] Comment on above: Performed By: #### C H8 #### [facility] [address] [place] [address], ESTIMATED GFR (CKD-EPI) 133 mL/min/1.73sqm Normal >=60 [facility] Comment on above: Result Comment: 2020 CKD EPI Equation using Creatinine without Race Comment: Estimated glomerular filtration rate (eGFR) is calculated without a race coefficient. Values should be interpreted in the context of the patient's full clinical presentation. Reference: 1. Yonny Zamora, Rich M, Melissa ATKINSON, et al.. A Unifying Approach for GFR Estimation: Recommendations of the NKF-ASN Task Force on Reassessing the Inclusion of Race in Diagnosing Kidney Disease. [place] Journal of Kidney Diseases 202;79(2):268-88.e1. 2. N Engl J Med 1 Vol. 385 Issue 19 Pages 3572-3210 Performed By: #### C H8 #### [facility] [address] [place], [place], Glucose [Mass/Vol] 85 mg/dL Normal 74-109 [facility] Comment on above: Performed By: #### C H8 #### [facility] [address], [place], Potassium [Moles/Vol] 4.4 mmol/L Normal 3.5-5.0 [facility] Comment on above: Performed By: #### C H8 #### [facility] [address] [place], [place], Sodium [Moles/Vol] 134 mmol/L Low 136-145 [facility] Comment on above: Performed By: #### C H8 #### [facility] [address], [place], Urea nitrogen [Mass/Vol] 7 mg/dL Normal 7-25 [facility] Comment on above: Performed By: #### C H8 #### [facility] [address] [place], [place], Basic metabolic 2000 panelon 12-25-2023 Anion gap [Moles/Vol] 13 mmol/L 10 - 20 [facility] Calcium [Mass/Vol] 9.0 mg/dL 8.6 - 10. 3 mg/dL [facility] Chloride [Moles/Vol] 102 mmol/L 98 - 10 7 mmol/L [facility] CO2 [Moles/Vol] 23 mmol/L 21 - 31 mmol/L [facility] Creatinine [Mass/Vol] 0.36 mg/dL Low 0.60 - 1.20 mg/dL [facility] GFR/1.73 sq M.predicted CKD-EPI (S/P/Bld) [Vol rate/Area] 133 - PINF [facility] Comment on above: 2020 CKD EPI Equatio [...] Inclusion of Race in Diagnosing Kidney Disease. [place] Journal of Kidney Diseases 202;79(2):268-88.e1. 2. N Engl J Med 2020 Vol. 385 Issue 19 Pages 4215-6102 Glucose [Mass/Vol] 85 mg/dL 74 - 109 [...] 16.1 % High 11.5 - 14.5 % [facility] Hematocrit (Bld) [Volume fraction] 33.5 % Low 36.0 - 46.0 % [facility] Hemoglobin (Bld) [Mass/Vol] 10.8 g/dL Low 12.0 - 15.0 g/dL [facility] Interpretation and review of laboratory results Abnormal [facility] MCH (RBC) [Entitic mass] 31.1 pg 26. 0 - 34.0 pg [facility] MCHC (RBC) [Mass/Vol] 32.3 g/dL 32.0 - 35.9 g/dL [facility] MCV (RBC) [Entitic vol] 96 fL 80 - 100 fL [facility] Platelet mean volume (Bld) [Entitic vol] 9.3 fL 7.5 - 11.2 fL [facility] Platelets (Bld) [#/Vol] 425 10*3/uL High 150 - 400 K/uL [facility] RBC (Bld) [#/Vol] 3.48 10*6/uL Low [facility] WBC (Bld) [#/Vol] 5.3 10*3/uL 4.5 - 11.5 K/uL [facility] COMPLETE BLOOD COUNTon 12-24 Erythrocyte distribution width (RBC) [Ratio] 16.1 % High 11.5-14.5 [facility] Comment on above: Performed By: #### C BC ####[facility] [id number] [place], [place], Hematocrit (Bld) [Volume fraction] 33.5 % Low 36.0-46.0 [facility] Comment on above: Performed By: #### C BC ####[facility] [id number] [place], [place], Hemoglobin (Bld) [Mass/Vol] 10.8 g/dL Low 12.0-15.0 [facility] Comment on above: Performed By: #### C BC ####[facility] [id number] [place], [place], MCH (RBC) [Entitic mass] 31.1 pg Normal 26.0-34.0 [facility] Comment on above: Performed By: #### C BC ####[facility] [id number] [place], [place], MCHC (RBC) [Mass/Vol] 32.3 g/dL Normal 32.0-35.9 [facility] Comment on above: Performed By: #### C BC ####[facility] [id number] [place], [place], MCV (RBC) [Entitic vol] 96 fL Normal 80-100 [facility] Comment on above: Performed By: #### C BC ####[facility] [id number] [place], [place], Platelet mean volume (Bld) [Entitic vol] 9.3 fL Normal 7.5-11.2 [facility] Comment on above: Performed By: #### C BC ####[facility] [id number] [place], [place], Platelets (Bld) [#/Vol] 425 10*3/uL High 150-400 [facility] Comment on above: Performed By: #### C BC ####[facility] [id number] [place], [place], RBC (Bld) [#/Vol] 3.48 10*6/uL Low 4.00-5.20 The [facility] Comment on above: Performed By: #### C BC ####[facility] [id number] [place], [place], WBC (Bld) [#/Vol] 5.3 10*3/uL Normal 4.5-11.5 [facility] Comment on above: Performed By: #### C BC ####[facility] [id number] [place], [place], Patient Instructionson 12-24 Pullboat Engineer Authentication Interface Message Text On the morning [...] for pain Please hold all Vitamin E, [place] 3, fish oil and herbal supplements for 1 week prior to surgery Please hold Naltrexone 3 days prior to surgery. Last dose on 01/03. Please use this CHECKLIST to prepare for your surgery/procedure: ? Assume that any lab or testing done during your Pre-admission testing appointment is within normal limits unless otherwise contacted. ? Expect a call from [facility] one business day prior to surgery for [...] your Preparing for Your Surgery/Procedure booklet or [email or web address] if you have questions. Contact the Pre-Admission Testing department at [phone] or your surgeon's office with any questions [...] to coming for surgery. Patients can have formula or non-human milk (skim, 2%, whole, [...] stay with you after surgery. Please call [facility] Social Work if you need transportation assistance or have concerns about going home [phone]. ? PEDIATRIC or ADOLESCENTS: Parents or a [...] result (more content not included)... Normal The [facility] Progress Noteson 12-10-2023 Pullboat Engineer Authentication Interface Message Text Parent/guardian/patient was contacted for PSE AND OR scheduled -- confirmed information with mom, also informed mom importance of receiving PSE call -- if not received surgery will be canceled OR date 01/08/2024 ----- , December 10, 2023 at 11:39:35 AM ----- ----- Provider: Mounika Lin-Senior Boiler Operator -- Clinic: [place] ----- Normal The [facility] NM Gastric Emptying Studyon 09-27-2023 NM [...] 30.4 3.0 hr (Upper Limit 30%) 1.5 [facility] Consent for Treatmenton Consent for Treatment [id number] F [facility] IntraOperative Documentson 0 09-18-2023 IntraOperative Documents [id number] F [facility] Progress Note-Physicianon Progress Note-Physician Patient: VEE SARABIA Age: 38 years Sex: Female : 1985 [...] mental retardation (I.Q. 20-34) / SNOMED CT 86656850 / Confirmed Seizure disorder / SNOMED CT 604606728 / Confirmed Seasonal allergy / SNOMED CT 1144638246 / Confirmed Pervasive developmental disorder / SNOMED CT 88136922 / Confirmed Osteoporosis / SNOMED CT 886054913 / Confirmed Impulse control disorder / SNOMED CT 664565808 / Confirmed Disruptive behavior disorder / SNOMED CT 44253196 / Confirmed Constipation / SNOMED CT 91940513 / Confirmed Cholelithiasis / SNOMED CT 374985429 / Confirmed Cerebral palsy / SNOMED CT 068343269 / Confirmed Bipolar / SNOMED CT 850026942 / Confirmed Histories Procedure history: No active procedure history items have been selected or recorded. Social History Social & Psychosocial Habits Tobacco 09/10/2023 Tobacco Use: Never (less than 100 in l Smokeless tobacco use: Never . Physical Examination Airway: Mallampati classification: II (soft palate, fauces, uvula visible). Respiratory: adequate air exchange. Cardiovascular: Regular rhythm. Plan [employer] (ASA) physical status classification: Class III. Anesthetic Preoperative Plan: Anesthesia General. Normal [facility] Comment on above: Result Comment: Elec tronically Signed By: Chaim Phillips Jr, DO\.br\Date and Time Signed: 09/18/23 08:45 EDT Progress Note-Physician Patient: VEE SARABIA Age: 38 years Sex: Female : 1985 [...] when meets criteria ( To home ). [facility] Comment on above: Result Comment: Elec tronically Signed By: Chaim Phillips Jr, DO\ivan\Date and Time Signed: 09/18/23 08:45 EDT Consenton 09-17-2023 Consent [id number]#1.00TI FF [facility] Discharge Instructionson Discharge Instructions [id number]#1.00TI FF [facility] Main OR Intraoperative Recor don 09-17-2023 Main OR Intraoperative Record IntraOp Document Type FT Summary Primary Physician: Kelle RAMIREZ, Jessee Chester Finalized Date/Time: 09/17/23 09:56:06 Pt. Name: VEE SARABIA /Sex: 1985 Female Med Rec #: [id number] Physician: Jessee Nina MD Financial #: [id number] Pt. Type: O Room/Bed: / Admit/Disch: 09/16/23 07:20:15 - 09/16/23 23:59:59 Institution: Case Times FT Entry 1 Patient Times In Room 09/16/23 08:21:00 Out Room 09/16/23 08:33:00 Procedure Times Start 09/16/23 08:27:00 Stop 09/16/23 08:31:00 Anesthesia Times Start 09/16/23 08:21:00 Stop 09/16/23 08:33:00 Last Modified By: Wendy Brown RN 09/16/23 08:32:50 General Comments: 09/17/2023 chart opened for charge review per Cyril Mckenna RN. [place] Case Attendance FT Entry 1 Entry 2 Entry 3 Case Attendee Margret SALMON, James Haynes MORTGAGE ANALYST, Josefa Nina MD, Jessee Cerda Role Performed Anesthesiologist Scrub - Primary Surgeon - Primary Phd Intern Time In 09/16/23 08:21:00 09/16/23 08:21:00 09/16/23 08:21:00 Time Out 09/16/23 08:33:00 09/16/23 08:33:00 09/16/23 08:33:00 Procedure EGD(.) EGD(.) EGD(.) Comments Dr. Phillips is supervising Last Modified By: Kevin HERMOSILLO, Wendy Brown RN, Wendy Dennis RN 09/16/23 08:32:53 09/16/23 08:32:53 09/16/23 08:32:53 Entry 4 Case Attendee Wendy Brown RN Role Performed Tire Finisher - Primary Time In 09/16/23 08:21:00 Time [...] PreOp Antibiotic No Time Out James Sidhu Given Participants Ivy Gonsales MORTGAGE ANALYST, Kelle Bean MD, Jessee Chester, Wedny Brown RN Time Out Complete 09/16/23 08:25:00 [...] duodenal biopsy. Primary Procedure Yes Primary Surgeon Kelle RAMIREZ, Jessee Chester Start 09/16/23 08:27:00 Stop 09/16/23 08:31:00 Anesthesia [...] and tissue Entry 1 Skin Integrity Intact, [place], Warm, and Skin Abnormality No Dry Outcomes [...] Leg Po (more content not included)... Normal [facility] Consent for Treatmenton Consent for Treatment [id number]#1.00TIF F Normal [facility] Discharge Instructionson Discharge Instructions VEE SARABIA Tawanda :1985 Visit Date:09/16/2023 Inpatient Discharge Instructions Your [...] weeks Comments: Call for any problems. Where: [address] [place], [place] [address]dict [address], [address] [place] [phone] Business (1) Medications What How Much When [...] medicines, such (more content not included)... Normal [facility] Comment on above: Result Comment: Elec tronically Signed By: Kenyon HERMOSILLO, Stacie\.br\Date and Time Signed: 09/16/23 08:49 EDT P[place]a 09-16-2023 Esophagogastroduodenosco py Patient: VEE SARABIA Age: 38 years Sex: Female : 1985 Associated Diagnoses: None Author: Jesese Nina MD Pre-Procedure Procedure Date 09/16/2023 08:36:00 [...] duodenum status post biopsies. Images Procedure images: Rec1_hd_video_ [id number].jpg Rec1_hd_video_ [id number].jpg Rec1_hd_video_ [id number].jpg Rec1_hd_video_ [id number].jpg . Post-Procedure Complications: none. Estimated blood loss: minimal. Specimens: sent to pathology. Devices/ implants: none left in place. Impression and Plan irregular Z-line Gastropathy fundic gland polyps Status post biopsies from stomach and duodenum Recommendations: -Resume previous diet -Resume home medications -Await pathology results Normal [facility] Comment on above: Other Comment: Melissa calderón Attachment - attachment storage system not supported [id number] Can be viewed in source system Missing Attachment - attachment storage system not supported [id number] Can be viewed in source system Missing Attachment - attachment storage system not supported [id number] Can be viewed in source system Missing Attachment - attachment storage system not supported [id number] Can be viewed in source system Main OR PACU I Recordon 05-0 Main OR PACU I Record PACU Phase I Docum ent Type FT Summary Primary Physician: Kelle RAMIREZ, Jessee Chester Finalized Date/Time: 09/16/23 09:20:05 Pt. Name: VEE SARABIA /Sex: 1985 Female Med Rec #: [id number] Physician: Jessee Nina MD Financial #: [id number] Pt. Type: O Room/Bed: / Admit/Disch: 09/16/23 [...] By: Stacie Prescott RN 09/16/23 09:20 Normal [facility] Main OR Preoperative Recordo n 09-16-2023 Main OR Preoperative Record Holding Area Document Type FT Summary Primary Physician: Jessee Nina MD Finalized Date/Time: 09/16/23 07:37:45 Pt. Name: VEE SARABIA Tawanda Moses/Sex: 1985 Female Med Rec #: [id number] Physician: Jessee Nina MD Financial #: [id number] Pt. Type: O Room/Bed: / Admit/Disch: 09/16/23 07:20:15 - Institution: Case Times Holding FT Pre-Care Text: Verifies consent for planned procedure, identifies individual values and wishes concerning care, includes family members in perioperative teaching Secures patient's records' belongings, and valuables, maintains patient's dignity and privacy, and maintains patient confidentiality Entry 1 In Holding 09/16/23 07:29:00 Outcomes Met? Yes Last Modified By: Kirill HERMOSILLO, Vanessa Garcia 09/16/23 07:29:47 Post-Care Text: The patient participates [...] Adult Bill- staff from postop adult Supervision [place] supervision available Case Cancelled in No Holding Area see comments below for reason Last Modified By: Vanessa Roy RN 09/16/23 07:35:16 General Comments: Caregiver, Bill present with patient from [facility]. /,RN Finalized By: Vanessa Roy RN Document Signatures Signed By: Vanessa Roy RN 09/16/23 07:37 Normal [facility] Monitor Recordon 09-16-2023 Monitor Record [id number]#1.00TI FF Normal [facility] Monitor Record [id number]#1.00TI FF Normal [facility] Consent for Procedure/Surger yon 09-11-2023 Consent for Procedure/Surgery [id number]#1.00TI FF [facility] Ambulatory Visit Summaryon 0 09-10-2023 Ambulatory Visit Summary ROXYJOSE LUISVEE Tawanda :1985 Visit Date:09/10/2023 Ambulatory Visit Instructions Your Diagnosis Nausea and vomiting Weight loss Early satiety Chronic constipation Your Care Team Attending Physician - Jessee Nina MD Primary Care Physician - BALJIT PINEDO DO [...] Appointments Thursday. 2023 8:00 AM EDT Where: [facility] You Need to Complete the Following NM Gastric Emptying Study, 09/10/23, Routine, Order for Future Visit, Transport Mode: Ambulatory, Reason: Nausea, Nausea and vomiting Invalid Interpretation Code Early satiety [facility] Gastroenterology Office/Clin ic Noteon 09-10-2023 Gastroenterology Office/Clinic Note Chief Complaint nausea/vomiting, constipation, weight loss HPI Staff Patient is a 38 year old female who was referred by [facility] for nausea and vomiting. Intermittent nausea and [...] diphtheria/pertussis, acel/tetanus adult 08/14/2022 Recorded SARS-CoV-2 (COVID-19) [id number] 08/14/2022 Recorded influenza virus vaccine, inactivated 03/05/2022 Recorded SARS-CoV-2 (COVID-19) [id number].[id number] 03/05/2022 Recorded 2023-09-09: TPVALL influenza virus vaccine, [...] Recorded measles/mumps/rubella virus vaccine 11/15/1986 Recorded Normal [facility] Comment on above: Result Comment: Elec tronically Signed By: Kelle RAMIREZ, Jessee Andrade.br\Date and Time Signed: 09/10/23 09:40 EDT Skilled Nursing Recordson 09-09 Skilled Nursing Records [id number] F Normal [facility] CBC w/Indiceson 04-01-2023 Erythrocyte distribution width (RBC) [Ratio] 15.4 % High 10.9-14.2 [facility] Comment on above: Performed By: #### 2 608155, 2774396, 1123287, 7006851, 1724907, 9727841, 9379094, 77602806, 0688432, 3652601 ####[facility] [address] [place] [address] Hematocrit (Bld) [Volume fraction] 37.4 % Normal 34.0-46.0 [facility] Comment on above: Performed By: #### 2 042329, 5278526, 1827628, 7851854, 1645110, 1906262, 5026157, 80542748, 4172093, 2758055 ####[facility] [address] [place] [address] Hemoglobin (Bld) [Mass/Vol] 12.1 g/dL Normal 12.0-16.0 [facility] Comment on above: Performed By: #### 2 728473, 4156026, 7810694, 5824178, 6943449, 1270131, 1051251, 58421870, 5162956, 9108773 ####[facility] [address] [place] [address] MCH (RBC) [Entitic mass] 30.9 pg Normal 27.0-34.0 [facility] Comment on above: Performed By: #### 2 332999, 9266891, 0579999, 4601277, 0794340, 6745627, 8601431, 90654555, 6990823, 6155634 ####[facility] [address] [place] [address] MCHC (RBC) [Mass/Vol] 32.4 g/dL Normal 31.4-36.0 [facility] Comment on above: Performed By: #### 2 714834, 7990492, 8240436, 9687920, 2755096, 8614524, 6248183, 16667583, 8446886, 2614190 ####[address] [address] MCV (RBC) [Entitic vol] 95.6 fL Normal 80.0-100.[address] [facility] Comment on above: Performed By: #### 2 909943, 4321283, 8856640, 8965754, 7698578, 8681748, 3415545, 64357505, 8592028, 1962135 ####[address] [place] [address] Platelet mean volume (Bld) [Entitic vol] 12.2 fL High 6.4-10.8 [facility] Comment on above: Performed By: #### 2 648944, 7797251, 1432074, 5133953, 3219774, 2370499, 3338739, 76115193, 7664941, 9290406 ####[address] [place] [address] Platelets (Bld) [#/Vol] 309.0 E9/L Normal 150. 0-500. 0 [facility] Comment on above: Performed By: #### 2 594290, 6351341, 1716087, 0972604, 3339112, 3661960, 8987987, 99599515, 0098417, 7922944 ####[facility] [address] [place] [address] RBC (Bld) [#/Vol] 3.9 E12/L Low 4.3-5.9 [facility] Comment on above: Performed By: #### 2 164853, 0066675, 6243518, 6255287, 9944803, 9989305, 4482708, 58751579, 8960357, 0914157 ####[facility] [address] [place] [address] WBC corrected for nucl RBC Auto (Bld) [#/Vol] 6.5 E9/L Normal 4.0-11.0 [facility] Comment on above: Performed By: #### 2 251753, 2144965, 0818991, 3764027, 7292565, 9865813, 6970919, 42543944, 5070858, 8450167 ####[facility] [address] [place] [address] CHEMISTRYOrdered By: SYSTEM SYSTEM on 04-01-2023 Albumin [...] 04-01-2023 Albumin [Mass/Vol] 3.7 g/dL Normal 3.3-5.0 [facility] Comment on above: Performed By: #### 2 110811, 4334698, 4972988, 1809029, 0845293, 9153608, 4232195, 24481195, 0386441, 3451799 ####[facility] [address] [place] [address] Albumin/Globulin (S) [Mass conc ratio] 1.2 Normal 1.1-2.2 [facility] Comment on above: Performed By: #### 2 133432, 7495386, 3188925, 7320612, 6143576, 3702065, 0733390, 85412016, 5466404, 1250776 ####[facility] [address] [place] [address] ALP [Catalytic activity/Vol] 32 Int._Unit/L Normal 21-98 [facility] Comment on above: Performed By: #### 2 767569, 7767324, 2111410, 6619974, 1727640, 0454215, 3659851, 94126621, 7652590, 8280005 ####[facility] [address] [place] [address] ALT No additional P-5'-P [Catalytic activity/Vol] 24 Int._Unit/L Normal 6-46 [facility] Comment on above: Performed By: #### 2 209491, 9645665, 8876933, 8058695, 3064388, 8671795, 0330362, 05506863, 1822841, 9725519 ####[facility] [address] [place] [address] Anion gap [Moles/Vol] 13 mmol/L Normal 6-16 [facility] Comment on above: Performed By: #### 2 147195, 3622098, 4781324, 5925140, 5431948, 2537840, 5785165, 43843650, 9951934, 6352890 ####[facility] [address] [place] [address] AST [Catalytic activity/Vol] 28 Int._Unit/L Normal 5-43 [facility] Comment on above: Performed By: #### 2 007471, 0209752, 9289984, 7889720, 6646434, 1181021, 5123750, 77534115, 6733927, 8734191 ####[facility] [address] [place] [address] Bilirubin [Mass/Vol] 0.1 mg/dL Normal 0.0-1.1 [facility] Comment on above: Performed By: #### 2 356744, 7296803, 9206231, 0000076, 7084292, 1471754, 2305723, 53752574, 0096180, 2534376 ####[facility] [address] [place] [address] Calcium [Mass/Vol] 8.9 mg/dL Normal 8.9-11.1 [facility] Comment on above: Performed By: #### 2 203026, 2871137, 4549295, 2416259, 8681806, 4536993, 6460753, 19452550, 6366419, 1704755 ####[facility] [address] [place] [address] Chloride [Moles/Vol] 98 mmol/L Low 101-111 [facility] Comment on above: Performed By: #### 2 925377, 4665368, 3303508, 3139916, 0160664, 5637972, 9644025, 40560642, 6641712, 0409551 ####[facility] [address] [place] [address] CO2 [Moles/Vol] 24 mmol/L Normal 21-31 [facility] Comment on above: Performed By: #### 2 180817, 1130185, 5628091, 0638242, 1793766, 8532777, 0154630, 41325944, 0884913, 5999282 ####[facility] [address] [place] [address] Creatinine [Mass/Vol] 0.5 mg/dL Normal 0.5-1.3 [facility] Comment on above: Performed By: #### 2 959577, 6200928, 7104281, 8618254, 5335161, 9088185, 9226173, 39946017, 6218341, 9217307 ####[facility] [address] [place] [address] Globulin (S) [Mass/Vol] 3.2 g/dL Normal 1.4-4.0 [facility] Comment on above: Performed By: #### 2 309275, 7367213, 0230235, 7144276, 5538718, 0435316, 2849603, 34840990, 3122537, 3437403 ####[facility] [address] [place] [address] Glucose [Mass/Vol] 86 mg/dL Normal 55-199 [facility] Comment on above: Result Comment: If t his glucose result represents a fasting glucose, interpretation should refer to the following reference range: 55-99 mg/dL Performed By: #### 2 536576, 4720256, 0009742, 1263485, 8472057, 7609221, 6234259, 18409089, 1943147, 8138797 ####[facility] [address] [place] [address] Potassium [Moles/Vol] 4.3 mmol/L Normal 3.5-5.3 [facility] Comment on above: Performed By: #### 2 036803, 7607766, 4737017, 1496813, 9628133, 1342576, 6642782, 23282838, 4679444, 5056144 ####[facility] [address] [place] [address] Protein [Mass/Vol] 6.9 g/dL Normal 6.0-7.8 [facility] Comment on above: Performed By: #### 2 164085, 9185374, 5249587, 0158319, 3101942, 4031787, 8329493, 40850519, 9775070, 6142367 ####[facility] [address] [place] [address] Sodium [Moles/Vol] 131 mmol/L Low 135-145 [facility] Comment on above: Performed By: #### 2 857462, 9966290, 7111738, 0016870, 5999864, 3752075, 3294802, 20842020, 3671727, 0353410 ####[facility] [address] [place] [address] Urea nitrogen [Mass/Vol] 8 mg/dL Normal 5-21 [facility] Comment on above: Performed By: #### 2 295644, 8954948, 9450611, 0286278, 2450628, 9834008, 2736405, 90406851, 3331829, 5795830 ####[facility] [address] [place] [address] Urea nitrogen/Creatinine [Mass ratio] 16 No Units Normal 10-20 [facility] Comment on above: Performed By: #### 2 443671, 9373682, 7582876, 6985197, 2980314, 1879853, 9402605, 20650874, 1561608, 5279491 ####[facility] [address] [place] [address] Carbamazepineon 04-01-2023 carBAMazepine [Mass/Vol] 4.4 microgram/mL Normal 4.0-1 2.0 [facility] Comment on above: Performed By: #### 2 033200, 8461106, 4698985, 3408966, 3266743, 8538477, 6916365, 51868177, 5737594, 3240945 ####[facility] [address] [place] [address] Ferritinon 04-01-2023 Ferritin [Mass/Vol] 39 ng/mL Normal 11-307 [facility] Comment on above: Result Comment: NORM ALS MEN <30 YRS 16-132 ng/mL MEN >30 YRS 8-338 ng/mL WOMEN (PREMEN) 6-104 ng/mL WOMEN (POSTMEN) 12-210 ng/mL Performed By: #### 2 572379, 0119886, 5592958, 3912791, 2327023, 2360300, 4132218, 04997516, 9303691, 5767424 ####[facility] [address] [place] [address] Free T4on 04-01-2023 Free T4 [Mass/Vol] 0.97 ng/dL Normal 0.58-1.64 [facility] Comment on above: Performed By: #### 2 628673, 3930418, 9316735, 0709316, 0619734, 7058856, 7403491, 00704580, 4362567, 5758590 ####[facility] [address] [place] [address] HEMATOLOGYOrdered By: Graciela Carey on 04-01-2023 Erythrocyte [...] 04-01-2023 Iron [Mass/Vol] 130 microgram/dL Normal 35-153 [facility] Comment on above: Performed By: #### 2 473492, 2426829, 1347305, 6636657, 0549826, 3747413, 4031707, 76077115, 1753072, 2395126 ####[facility] [address] [place] [address] Physician Orderon 04-01-2023 Physician Order [id number]#[id number] FF Normal [facility] TSHon 04-01-2023 TSH Qn 0.96 m[IU]/L Normal 0.34-5.60 [facility] Comment on above: Performed By: #### 2 689589, 6906012, 2645069, 6828415, 9036223, 6291924, 8217354, 68835909, 0859656, 1365884 ####[facility] [address] [place] [address] Valproic Acidon 04-01-2023 Valproate [Moles/Vol] 59 microgram/mL Normal 50-99 [facility] Comment on above: Performed By: #### 2 902756, 6086991, 3453958, 1895841, 7315035, 8541848, 6704962, 36455532, 7331435, 0517170 ####[facility] [address] [place] [address] Vit B12on 04-01-2023 Cobalamin (Vitamin B12) [Mass/Vol] 305 pg/mL Normal 50-1500 [facility] Comment on above: Performed By: #### 2 035236, 1161910, 2568869, 0615628, 6160256, 7739664, 3313608, 81590518, 8930408, 1455978 ####[facility] [address] [place] [address] eGFRon 04-01-2023 GFR/1.73 sq M.predicted among non-blacks MDRD (S/P/Bld) [Vol rate/Area] 124 mL/min/1.73 m2 Normal >=59 [facility] Comment on above: Order Comment: Order added by Discern Expert. Result Comment: Nutrition Assistant tamara kidney disease could be indicated at eGFR's of less than 60 mL/min/1.73m2. Kidney failure is indicated at less than 15 mL/min/1.73m2. Performed By: #### 2 018081, 1560758, 4646619, 5007528, 6817134, 1323032, 3450370, 59141646, 4229074, 5388632 ####[facility] [address] [place] [address] CHEMISTRYOrdered By: SYSTEM SYSTEM on 01-14-2023 Valproate [Moles/Vol] 82 microgram/mL Normal 50 - 99 mcg/mL [facility] Remisol Physician Orderon 01-14-2023 Physician Order [id number]: 127 Normal [facility] Valproic Acidon 01-14-2023 Valproate [Moles/Vol] 82 microgram/mL Normal 50-99 [facility] Comment on above: Performed By: #### 2 072674 ####[facility] [address] [place] [address] XR DEXA BONE DENSITYon 10-01 XR DEXA [...] by: SANDY RAMIREZ Date: 2022-10-01 11:02 Normal [facility] CBC AUTO DIFFon 09-16-2022 BASO # 0.0 103/ul Normal 0.0-0.1 [facility] Comment on above: Performed By: #### C BC #### [facility] [address] [place] [address] Dr. Chong Agarwal Basophils/100 WBC (Bld) 0.3 % Normal 0.2-2.0 [facility] Comment on above: Performed By: #### C BC #### [facility] [address] [place] [address] Dr. Chong Agarwal EO # 0.0 103/ul Normal 0.0-0.7 [facility] Comment on above: Performed By: #### C BC #### [facility] [address] [place] [address] Dr. Chong Agarwal Eosinophils/100 WBC (Bld) 0.4 % Critically low 0.9-7.0 [facility] Comment on above: Performed By: #### C BC #### [facility] [address] [place] [address] Dr. Chong Agarwal Erythrocyte distribution width (RBC) [Ratio] 14.6 % Normal 11.0-15.0 [facility] Comment on above: Performed By: #### C BC #### [facility] [address] [place] [address] Dr. Chong Agarwal Hematocrit (Bld) [Volume fraction] 37.6 % Normal 36.0-48.0 [facility] Comment on above: Performed By: #### C BC #### [facility] [address] [place] [address] Dr. Chong Agarwal Hemoglobin (Bld) [Mass/Vol] 12.2 g/dL Normal 12.0-16.0 [facility] Comment on above: Performed By: #### C BC #### [facility] [address] [place] [address] Dr. Chong Agarwal IG # 0.02 10e3/ul Normal 0.00-0.03 [facility] Comment on above: Performed By: #### C BC #### [facility] [address] [place] [address] Dr. Chong Agarwal IG % 0.3 % Normal 0.0-0.5 [facility] Comment on above: Performed By: #### C BC #### [facility] [address] [place] [address] Dr. Chong Agarwal LYMPH # 2.4 103/ul Normal 1.2-3.8 [facility] Comment on above: Performed By: #### C BC #### [facility] [address] [place] [address] Dr. Chong Agarwal Lymphocytes/100 WBC (Bld) 34.6 % Normal 20.5-60.0 [facility] Comment on above: Performed By: #### C BC #### [facility] [address] [place] [address] Dr. Chong Agarwal MANUAL DIFF REQ NO Normal [facility] Comment on above: Performed By: #### C BC #### [facility] [address] [place] [address] Dr. Chong Agarwal MCH (RBC) [Entitic mass] 31.4 pg Normal 26.7-34.0 [facility] Comment on above: Performed By: #### C BC #### [facility] [address] [place] [address] Dr. Chong Agarwal MCHC (RBC) [Mass/Vol] 32.4 g/dL Normal 29.9-35.2 [facility] Comment on above: Performed By: #### C BC #### [facility] [address] [address] [address] Chong Agarwal MCV (RBC) [Entitic vol] 96.7 fL Normal 81.0-99.0 [facility] Comment on above: Performed By: #### C BC #### [facility] [address] [address] [address] Chong Agarwal MONO # 0.7 103/ul Normal 0.3-0.8 [facility] Comment on above: Performed By: #### C BC #### [facility] [address] [address] [address] Chong Agarwal Monocytes/100 WBC (Bld) 10.2 % Normal 1.7-12.0 [facility] Comment on above: Performed By: #### C BC #### [facility] [address] [address] [address] Chong Agarwal NEUT # 3.8 103/ul Normal 1.4-6.5 [facility] Comment on above: Performed By: #### C BC #### [facility] [address] [address] [address] Chong Agarwal Neutrophils/100 WBC (Bld) 54.2 % Normal 43.0-75.0 [facility] Comment on above: Performed By: #### C BC #### [facility] [address] [address] [address] Chong Agarwal Platelet mean volume (Bld) [Entitic vol] 11.0 fL Normal 9.5-13.5 [facility] Comment on above: Performed By: #### C BC #### [facility] [address] [address] [address] Chong Agarwal PLT 290 103/ul Normal 150-450 [facility] Comment on above: Performed By: #### C BC #### [facility] [address] [address] [address] Chong Agarwal RBC 3.89 106/ul Critically low 4.20-5.40 [facility] Comment on above: Performed By: #### C BC #### [facility] [address] [address] [address] Chong Agarwal WBC 7.0 103/ul Normal 4.0-11.0 [facility] Comment on above: Performed By: #### C BC #### [facility] [address] [address] [address] Chong Agarwal FREE T3on 09-16-2022 FREE T3 2.11 pg/mlL Critically low 2.18-3.98 [facility] Comment on above: Performed By: #### T SH, CMP, LIPID, FT3 #### [facility] [address] [address] [address] Chong gAarwal FREE T4on 09-16-2022 Free T4 [Mass/Vol] 1.25 ng/dL Normal 0.76-1.46 [facility] Comment on above: Performed By: #### F T4, VITB12 #### [facility] [address] [place] [address] Dr. Chong Agarwal LIPID PROFILEon 09-16-2022 CHOL-HDL RATIO NORM SEE BELOW Normal [facility] Comment on above: Result Comment: 3.3 - 4.4 LOW RISK 4.4 - 7.1 AVERAGE RISK 7.1 - 11.0 MODERATE RISK >11.0 HIGH RISK Performed By: #### T SH, CMP, LIPID, FT3 #### [facility] [address] [place] [address] Dr. Chong Agarwal Cholesterol [Mass/Vol] 144 mg/dL Normal <=200 [facility] Comment on above: Performed By: #### T SH, CMP, LIPID, FT3 #### [facility] [address] [place] [address] Dr. Chong Agarwal Cholesterol in HDL [Mass/Vol] 49 mg/dL Normal 40-60 [facility] Comment on above: Performed By: #### T SH, CMP, LIPID, FT3 #### [facility] [address] [place] [address] Dr. Chong Agarwal Cholesterol in LDL [Mass/Vol] 78.0 mg/dL Normal [facility] Comment on above: Performed By: #### T SH, CMP, LIPID, FT3 #### [facility] [address] [address] [address] Chong Agarwal Cholesterol.total/Choles terol in HDL [Mass ratio] 2.9 {ratio} Normal [facility] Comment on above: Performed By: #### T SH, CMP, LIPID, FT3 #### [facility] [address] [address] [address] Chong Agarwal HDL NORMAL > or = 60 mg/dl - LO W CARDIOVASCULAR RISK <40 mg/dl - HIGH CARDIOVASCULAR RISK Normal [facility] Comment on above: Performed By: #### T SH, CMP, LIPID, FT3 #### [facility] [address] [address] [address] Chong Agarwal LDL CALC NORMAL SEE BELOW Normal [facility] Comment on above: Result Comment: <100 mg/dl OPTIMAL 100 - 129 mg/dl NEAR OR ABOVE OPTIMAL 130 - 159 mg/dl BORDERLINE HIGH 160 - 189 mg/dl HIGH >190 mg/dl VERY HIGH Performed By: #### T SH, CMP, LIPID, FT3 #### [facility] [address] [address] [address] Chong Agarwal Triglyceride [Mass/Vol] 85 mg/dL Normal <=150 [facility] Comment on above: Performed By: #### T SH, CMP, LIPID, FT3 #### [facility] [address] [address] [address] Chong Agarwal VLDL CALC 17.0 mg/dL Normal [facility] Comment on above: Performed By: #### T SH, CMP, LIPID, FT3 #### [facility] [address] [address] [address] Chong Agarwal PROF 14(COMP METB)on 023 Albumin [Mass/Vol] 3.5 g/dL Normal 3.4-5.0 [facility] Comment on above: Performed By: #### T SH, CMP, LIPID, FT3 #### [facility] [address] [address] [address] Chong Agarwal Albumin/Globulin [Mass ratio] 0.9 {ratio} Normal [facility] Comment on above: Performed By: #### T SH, CMP, LIPID, FT3 #### [facility] [address] [place] [address] Dr. Chong Agarwal ALP [Catalytic activity/Vol] 31 U/L Critically low 46-116 [facility] Comment on above: Performed By: #### T SH, CMP, LIPID, FT3 #### [facility] [address] [place] [address] Dr. Chong Agarwal ALT [Catalytic activity/Vol] 34 U/L Normal 14-59 [facility] Comment on above: Performed By: #### T SH, CMP, LIPID, FT3 #### [facility] [address] [place] [address] Dr. Chong Agarwal Anion gap [Moles/Vol] 8.3 mmol/L Normal [facility] Comment on above: Performed By: #### T SH, CMP, LIPID, FT3 #### [facility] [address] [place] [address] Dr. Chogn Agarwal AST [Catalytic activity/Vol] 22 U/L Normal 15-37 [facility] Comment on above: Performed By: #### T SH, CMP, LIPID, FT3 #### [facility] [address] [place] [address] Dr. Chong Agarwal Bilirubin [Mass/Vol] 0.2 mg/dL Normal 0.2-1.0 [facility] Comment on above: Performed By: #### T SH, CMP, LIPID, FT3 #### [facility] [address] [place] [address] Dr. Chong Agarwal Calcium [Mass/Vol] 9.0 mg/dL Normal 8.5-10.1 [facility] Comment on above: Performed By: #### T SH, CMP, LIPID, FT3 #### [facility] [address] [place] [address] Dr. Chong Agarwal Chloride [Moles/Vol] 101 mmol/L Normal 98-107 [facility] Comment on above: Performed By: #### T SH, CMP, LIPID, FT3 #### [facility] [address] [address] [address] Chong Agarwal CO2 [Moles/Vol] 30.0 mmol/L Normal 21.0-32.[address] [facility] Comment on above: Performed By: #### T SH, CMP, LIPID, FT3 #### [facility] [address] [address] [address] Chong Agarwal Creatinine [Mass/Vol] 0.54 mg/dL Critically low 0.55-1.02 [facility] Comment on above: Performed By: #### T SH, CMP, LIPID, FT3 #### [facility] [address] [address] [address] Chong Agarwal EGFR-AF MARTINIQUAIS >60 Normal >=[address] [facility] Comment on above: Performed By: #### T SH, CMP, LIPID, FT3 #### [facility] [address] [address] [address] Chong Agarwal EGFR-NON AF MARTINIQUAIS >60 Normal >=60 [facility] Comment on above: Performed By: #### T SH, CMP, LIPID, FT3 #### [facility] [address] [address] [address] Chong Agarwal Globulin (S) [Mass/Vol] 3.9 g/dL Normal [facility] Comment on above: Performed By: #### T SH, CMP, LIPID, FT3 #### [facility] [address] [address] [address] Chong Agarwal Glucose [Mass/Vol] 95 mg/dL Normal 74-106 [facility] Comment on above: Performed By: #### T SH, CMP, LIPID, FT3 #### [facility] [address] [address] [address] Chong Agarwal Potassium [Moles/Vol] 4.3 mmol/L Normal 3.5-5.1 [facility] Comment on above: Performed By: #### T SH, CMP, LIPID, FT3 #### [facility] [address] [address] [address] Chong Agarwal Protein [Mass/Vol] 7.4 g/dL Normal 6.4-8.2 [facility] Comment on above: Performed By: #### T SH, CMP, LIPID, FT3 #### [facility] [address] [place] [address] Dr. Chong Agarwal Sodium [Moles/Vol] 135 mmol/L Critically low 136-145 [facility] Comment on above: Performed By: #### T SH, CMP, LIPID, FT3 #### [facility] [address] [place] [address] Dr. Chong Agarwal Urea nitrogen [Mass/Vol] 12.0 mg/dL Normal 7.0-18.0 [facility] Comment on above: Performed By: #### T SH, CMP, LIPID, FT3 #### [facility] [address] [place] [address] Dr. Chong Agarwal Urea nitrogen/Creatinine [Mass ratio] 22.2 mg/mg Normal [facility] Comment on above: Performed By: #### T SH, CMP, LIPID, FT3 #### [facility] [address] [place] [address] Dr. Chong Agarawl TSHon 09-16-2022 TSH 0.986 uIU/mL Normal 0.358-3.74 0 [facility] Comment on above: Performed By: #### T SH, CMP, LIPID, FT3 #### [facility] [address] [place] [address] Dr. Chong Agarwal VITAMIN B12on 09-16-2022 Cobalamin (Vitamin B12) [Mass/Vol] 581.0 pg/mL Normal 193.0-986. 0 [facility] Comment on above: Performed By: #### F T4, VITB12 #### [facility] [address] [place] [address] Dr. Chong Agarwal CULTURE WOUNDon 08-22-2022 CULTURE [...] F Trimethoprim/Sulfamethox azole <=10 S F Normal [facility] Comment on above: Performed By: #### W OUNDCX #### [facility] [address] [place] [address] Dr. Chong Agarwal DEPAKENE/ VALPROIC ACIDon DEPAKENE 92.4 ug/ml Normal 50.0-100.0 [facility] Comment on above: Performed By: #### V ALP #### [facility] [address] [place] [address] Dr. Chong Agarwal Vital Signs Date Time Vital Sign Value Performing Clinician Facility 01-08-2024 16:00-0400 Diastolic blood pressure 26 mm[Hg] Stacie Torres DMD Work Phone: [facility] 01-08-2024 16:00-0400 Heart rate 84 /min Stacie Torres DMD Work Phone: [facility] 01-08-2024 16:00-0400 Respiratory rate 22 /min Stacie Torres DMD Work Phone: [facility] 01-08-2024 16:00-0400 SaO2% (BldA) [Mass fraction] 96 % Stacie Torres DMD Work Phone: [facility] 01-08-2024 16:00-0400 Systolic blood pressure 94 mm[Hg] Stacie Torres DMD Work Phone: [facility] 01-08-2024 15:56-0400 Body temperature 98.1 [degF] Stacie Torres DMD Work Phone: [facility] 01-08-2024 11:04-0400 Body height 147.3 cm Stacie Torres DMD Work Phone: [facility] 01-08-2024 11:04-0400 Body mass index (BMI) [Ratio] 31.98 kg/m2 Stacie Torres DMD Work Phone: [facility] 01-08-2024 11:04-0400 Body weight 69.4 kg Stacie Torres DMD Work Phone: [facility] 12-28-2023 20:36-0400 Heart rate 75 /min Víctor Earl COORDINATOR OF EVALUATION-BUTTON ATTACHING MACHINE OPERATOR Work Phone: [facility] 12-25-2023 10:34-0400 Body height 147.3 cm Víctor Earl COORDINATOR OF EVALUATION-BUTTON ATTACHING MACHINE OPERATOR Work Phone: [facility] 12-25-2023 10:34-0400 Body mass index (BMI) [Ratio] 31.98 kg/m2 Justensamia Earl COORDINATOR OF EVALUATION-BUTTON ATTACHING MACHINE OPERATOR Work Phone: [facility] 12-25-2023 10:34-0400 Body temperature 98.91 [degF] Víctor Goldberg COORDINATOR OF EVALUATION-BUTTON ATTACHING MACHINE OPERATOR Work Phone: [facility] 12-25-2023 10:34-0400 Body weight 69.4 kg Víctor Goldberg COORDINATOR OF EVALUATION-BUTTON ATTACHING MACHINE OPERATOR Work Phone: [employer] 12-25-2023 10:34-0400 Diastolic blood pressure 61 mm[Hg] Edward Zienkowski COORDINATOR OF EVALUATION-BUTTON ATTACHING MACHINE OPERATOR Work Phone: [facility] 12-25-2023 10:34-0400 Heart rate 86 /min Víctor Goldberg COORDINATOR OF EVALUATION-BUTTON ATTACHING MACHINE OPERATOR Work Phone: [facility] 12-25-2023 10:34-0400 Respiratory rate 16 /min Víctor Goldberg COORDINATOR OF EVALUATION-BUTTON ATTACHING MACHINE OPERATOR Work Phone: [facility] 12-25-2023 10:34-0400 SaO2% (BldA) [Mass fraction] 99 % Víctor Goldberg COORDINATOR OF EVALUATION-BUTTON ATTACHING MACHINE OPERATOR Work Phone: [facility] 12-25-2023 10:34-0400 Systolic blood pressure 94 mm[Hg] Víctor Goldberg COORDINATOR OF EVALUATION-BUTTON ATTACHING MACHINE OPERATOR Work Phone: [facility] 09-16-2023 09:00-0400 Diastolic blood pressure 61 mm[Hg] Mohamad Mouchli [facility] 09-16-2023 09:00-0400 Heart rate 70 /min Mohamad Mouchli [facility] 09-16-2023 09:00-0400 Mean blood pressure 74 mm[Hg] Mohamad Mouchli [facility] 09-16-2023 09:00-0400 Systolic blood pressure 99 mm[Hg] Mohamad Mouchli [facility] 09-16-2023 08:50-0400 Blood Pressure Location Mohamad Mouchli [facility] 09-16-2023 08:50-0400 Diastolic blood pressure 68 mm[Hg] Mohamad Mouchli [facility] 09-16-2023 08:50-0400 Heart rate 72 /min Mohamad Mouchli [facility] 09-16-2023 08:50-0400 Mean blood pressure 79 mm[Hg] Mohamad Mouchli [facility] 09-16-2023 08:50-0400 Respiratory rate 12 /min Mohamad Mouchli [facility] 09-16-2023 08:50-0400 SaO2% (BldA) [Mass fraction] 96 % Mohamad Mouchli [facility] 09-16-2023 08:50-0400 Systolic blood pressure 100 mm[Hg] Mohamad Mouchli [facility] 09-16-2023 08:45-0400 Diastolic blood pressure 83 mm[Hg] Mohamad Mouchli [facility] 09-16-2023 08:45-0400 Heart rate 86 /min Mohamad Mouchli [facility] 09-16-2023 08:45-0400 Mean blood pressure 88 mm[Hg] Mohamad Mouchli [facility] 09-16-2023 08:45-0400 Respiratory rate 17 /min Mohamad Mouchli [facility] 09-16-2023 08:45-0400 SaO2% (BldA) [Mass fraction] 97 % Mohamad Mouchli [facility] 09-16-2023 08:45-0400 Systolic blood pressure 98 mm[Hg] Mohamad Mouchli [facility] 09-16-2023 08:35-0400 Body temperature 98.06 [degF] Mohamad Mouchli [facility] 09-16-2023 07:39-0400 Body temperature 98.06 [degF] Mohamad Mouchli [facility] 09-10-2023 09:10-0400 Blood Pressure Location Property Partneralma delia Melendezli [facility] 09-10-2023 09:10-0400 Diastolic blood pressure 67 mm[Hg] Gersond Mouchli [facility] 09-10-2023 09:10-0400 Heart rate 91 /min Jessee Melendezli [facility] 09-10-2023 09:10-0400 Respiratory rate 16 /min [employer] Rejiuchli [facility] 09-10-2023 09:10-0400 Systolic blood pressure 113 mm[Hg] Jessee Melendezli [facility] Encounters Encounter Date Encounter Type Care Provider Facility Start: 01-11-2024 End: 01-11-2024 Telephone encounter Stacie Torres DMD Work Phone: [facility] Comment on above: Referral needs place d for OS Start: 01-08-2024 End: 01-08-2024 Patient encounter procedure Stacie Torres DMD Work Phone: [facility] Comment on above: Arrived Start: 01-08-2024 End: 01-08-2024 ambulatory UNKNOWN PROVIDER Facility:[facility] Start: 01-08-2024 End: 01-08-2024 Subsequent hospital visit by physician Stacie Torres DMD Work Phone: [facility] Start: 01-08-2024 ambulatory UNKNOWN PROVIDER Facili ty:[facility] Start: 01-06-2024 End: 01-06-2024 Telephone encounter Bronwyn Pradhan RN [facility] Comment on above: Pre-surgical Evaluat ion (DD adult dental restorations 01/07 under [facility] at [facility]. PAT completed - consents obtained. MARY RN spoke to Cassidy, confirmed NPO except water only until 0900 (Cassidy stated pt does not like and will not drink water), [place] address, and 1100 arrival time/) Start: 01-05-2024 End: 01-05-2024 ambulatory POONAM TALBERT Not Available Start: 12-28-2023 End: 12-28-2023 Telephone encounter Susie Dumont RN [facility] Start: 12-25-2023 End: 12-28-2023 Patient encounter procedure Justensamia Earl COORDINATOR OF EVALUATION-BUTTON ATTACHING MACHINE OPERATOR [facility] Comment on above: Preop testing (Prima ry Dx); Body mass index (BMI) 31.0-31.9, adult Preop testing (Prima ry Dx); Body mass index (BMI) 31.0-31.9, adult; Abnormal electrocardiogram (ECG) (EKG); Abnormal electrocardiogram (ECG) (EKG) Start: 12-25-2023 End: 12-28-2023 Patient encounter status Víctor Goldberg COORDINATOR OF EVALUATION-BUTTON ATTACHING MACHINE OPERATOR Work Phone: [facility] Work Phone: Start: 12-25-2023 End: 12-28-2023 ambulatory VÍCTOR GOLDBERG Facility:[facility] Start: 12-25-2023 Encounter for other preprocedural examination VÍCTOR GOLDBERG [facility] Start: 09-23-2023 End: 09-24-2023 ambulatory Jessee Nina Facility:[facility] Start: 09-23-2023 End: 09-23-2023 Patient encounter procedure Jessee Nina [facility] Start: 09-16-2023 End: 09-17-2023 ambulatory Jessee Nina Facility:[facility] Start: 09-16-2023 End: 09-16-2023 Patient encounter procedure Jessee Nina [facility] Start: 09-10-2023 End: 09-11-2023 ambulatory Jessee Nina Facility:[facility] Start: 09-10-2023 End: 09-10-2023 Patient encounter procedure Jessee Nina [facility] Start: 09-09-2023 ambulatory Jessee Nina Facilit y:[facility] Start: 04-01-2023 End: 04-02-2023 ambulatory BALJIT PINEDO Facility:[facility] Start: 04-01-2023 End: 04-01-2023 Lab Drop off BALJIT PINEDO [facility] Start: 01-14-2023 End: 01-15-2023 ambulatory BALJIT PINEDO Facility:[facility] Start: 01-14-2023 End: 01-14-2023 Lab Drop off BALJIT PINEDO [facility] Start: 10-01-[address] BALJIT PINEDO Fac ility:[facility] Start: 09-16-2022 End: 09-17-[address] BALJIT PINEDO Facility:[facility] Start: 08-19-2022 End: 08-19-[address] BALJIT PINEDO Facility:[facility] Start: 07-22-2022 End: 07-25-2022 Patient encounter procedure Kary Ku DDS Work Phone: [facility] Start: 06-08-2022 Letter encounter Rm Goldman DDS Work Phone: [facility] Start: 04-29-2022 End: 04-30-[address] BALJIT PINEDO Facility:[facility] Procedures Date Procedure Procedure Detail Performing Clinician Start: 01-08-2024 Gonadotropin chorionic quantitative Kim lorie Shin MD Work Phone: Start: 12-25-2023 Blood count complete automated Víctor brock COORDINATOR OF EVALUATION-BUTTON ATTACHING MACHINE OPERATOR Work Phone: Start: 12-25-2023 Ecg routine ecg w/least 12 lds trcg only w/o i&r Víctor SPARROW Work Phone: Start: 09-16-2023 Esophagogastroduodenoscopy Jessee Melendez nathaniel Plan of Treatment Date Care Activity Detail Author Start: 2035 Shingles (RZV) Vacci ne (1 of 2) Shingles (RZV) Vaccine (1 of 2) [facility] Start: 08-14-2032 Tetanus vaccination Tetanus (T d or Tdap) Booster [facility] Start: 02-16-2024 Influenza vaccination Influenza Vacc ine (#1) [facility] Start: 01-08-2024 End: 01-08-2024 DENTAL RESTORATIONS DENTAL RESTORATIONS Routine scheduled Caries 01/08/2024 2:10 PM EDT [facility] Start: 01-08-2024 End: 01-08-2024 Admission to same day surgery center 01/08/2024 11:28 AM EDT - 01/08/2024 1:23 PM EDT Surgery [facility] [address] [place] [address] Stacie Torres DMD [address] [place], [place] [id number] DENTAL RESTORATIONS [facility] Comment on above: DENTAL RESTORATIONS Start: 01-08-2024 End: 01-08-2024 DENTAL RESTORATIONS DENTAL RESTORATIONS Routine scheduled Caries 01/08/2024 11:28 AM EDT [facility] Start: 01-08-2024 Subsequent hospital visit by physician 01/08/2024 11:28 AM EDT Hospital Encounter [facility] [address] [place], [place] [id number] Stacie Torres DMD [address] [place] [address] [facility] Start: 01-08-2024 End: 01-08-2024 Patient encounter procedure 01/08/2024 11:00 AM EDT Procedure Visit [facility] [address] [place] [id number] Stacie Torres DMD [address] [place] [address] [facility] Start: 01-08-2024 End: 01-08-2024 Admission to same day surgery center 01/08/2024 7:20 AM EDT - 01/08/2024 9:15 AM EDT Surgery [facility] [address] [place] [id number] Stacie Torres DMD [address] [place] [address] DENTAL RESTORATIONS [facility] Comment on above: DENTAL RESTORATIONS Start: 01-08-2024 End: 01-08-2024 DENTAL RESTORATIONS DENTAL RESTORATIONS Routine scheduled Caries 01/08/2024 7:20 AM EDT [facility] Start: 01-08-2024 Subsequent hospital visit by physician 01/08/2024 7:20 AM EDT Hospital Encounter [facility] [address] [place] [id number] Stacie Torres DMD [address] [place] [address] [facility] Start: 01-16-2023 COVID-19 Vaccine ( season) COVID-19 Vaccine ( season) [facility] Start: 08-31-2022 Tetanus vaccination Tetanus (T d or Tdap) Booster [facility] Start: 07-22-2022 End: 07-22-2022 Patient encounter procedure 07/22/2022 Procedure Visit Dentistry Diana Horan, [facility] [address] [address] [facility] Start: 02-15-2022 Influenza vaccination Influenza Vacc ine (#1) [facility] Start: 2012 HPV Vaccine (optiona l start 27-45 years) HPV Vaccine (optional start 27-45 years) [facility] Start: 2006 Screening for malign ant neoplasm of cervix [facility] Start: 2004 Hepatitis A (HAV) Vaccine (optional start 19+ years) Hepatitis A (HAV) Vaccine (optional start 19+ years) [facility] Start: 2004 Hepatitis B vaccination Hepati tis B (HBV) Vaccine (1 of 3 - 19+ 3-dose series) [facility] Start: 2003 Hepatitis C screening Hepatitis C An tibody [facility] Start: 2000 HIV screening HIV Test [facility] Start: 1985 Screening for malign ant neoplasm of breast [facility] Ecg routine ecg w/le ast 12 lds trcg only w/o i&r EKG 12 LEAD - PERFORM MUSE Routine Preop testing Ordered: 12/25/2023 [facility] Work Phone: Comment on above: Ordered: 12/25/2023 End: 01-08-2024 Urine test visual color cmprsn meths URINE HCG-IN OFFICE Lab Routine One time for 1 Occurrences starting 01/08/2024 until 01/08/2024 [facility] Work Phone: Comment on above: One time for 1 Occur rences starting 01/08/2024 until 01/08/2024 Immunizations Immunization Date Immunization Notes Care Provider Destini fulton 03-04-2023 influenza virus vacc ine, unspecified formulation RosetteMatomy Moneycarmelo Nina [facility] 08-14-2022 SARS-CoV-2 (COVID-19 ) [id number] Property Partneralma delia Nina [facility] 08-14-2022 tetanus toxoid, redu penelope diphtheria toxoid, and acellular pertussis vaccine, adsorbed [employer] Mediacarmelo Nina [facility] 03-05-2022 influenza virus vacc ine, unspecified formulation RosetteMatomy Moneycarmelo Nina [facility] 03-05-2022 SARS-CoV-2 (COVID-19 ) [id number] Jessee Nina [facility] Comment on above: Result Comment: 2023: TPVALL 03-13-2021 influenza, injectabl e, quadrivalent, preservative free Rm Goldman [employer] [facility] 03-13-2021 SARS-CoV-2 (COVID-19 ) mRNA [id number] vax Jessee Nina [facility] Comment on above: Result Comment: 2023: TPV3 03-13-2021 influenza virus vacc ine, unspecified formulation Rm Goldman Appir[employer] Work Phone: [facility] 06-19-2020 Pfizer (12+ yrs) SARS-COV-2 (COVID-19) vaccine, mRNA, spike protein, LNP, pres. free, 30 mcg/0.3mL dose (RFW=995) Rm Goldman [employer] Work Phone: [facility] Comment on above: Result Comment: 2023: TPVAL 05-29-2020 Pfizer (12+ yrs) SARS-COV-2 (COVID-19) vaccine, mRNA, spike protein, LNP, pres. free, 30 mcg/0.3mL dose (ZFV=370) Rm Goldman [employer] Work Phone: [facility] Comment on above: Result Comment: 2023: TPVAL 02-22-2020 influenza virus vacc ine, unspecified formulation Jessee Nina [facility] 02-22-2020 influenza, injectabl e, quadrivalent, preservative free Rm Goldman [employer] [facility]2019 influenza virus vacc ine, unspecified formulation Mohamad Mouchli [facility] 03-11-2019 influenza, injectabl e, quadrivalent, preservative free Rm Susi DDS Work Phone: [facility] 02-24-2018 influenza virus vacc ine, unspecified formulation Mohamad Mouchli [facility] 02-24-2018 influenza, injectabl e, quadrivalent, preservative free Rm Susi DDS Work Phone: [facility] 03-11-2017 influenza virus vacc ine, unspecified formulation Mohamad Mouchli [facility] 03-11-2017 influenza, injectabl e, quadrivalent, contains preservative Rm Susi DDS Work Phone: [facility] 02-20-2016 influenza virus vacc ine, unspecified formulation Mohamad Mouchli [facility] 02-20-2016 influenza, seasonal, injectable Rm Susi DDS Work Phone: [facility] 03-08-2015 influenza virus vacc ine, unspecified formulation Mohamad Mouchli [facility] 03-08-2015 influenza, injectabl e, quadrivalent, preservative free Rm Susi DDS Work Phone: [facility] 03-23-2014 influenza virus vacc ine, unspecified formulation Mohamad Mouchli [facility] 03-23-2014 influenza, injectabl e, quadrivalent, preservative free Rm Susi DDS Work Phone: [facility] 03-15-2013 influenza virus vacc ine, unspecified formulation Mohamad Mouchli [facility] 03-15-2013 influenza, seasonal, injectable Rm Susi DDS Work Phone: [facility] 08-31-2012 tetanus toxoid, redu penelope diphtheria toxoid, and acellular pertussis vaccine, adsorbed Rm Goldman DDS Work Phone: [facility] 03-10-2012 influenza virus vacc ine, unspecified formulation Mohamad Mouchli [facility] 03-10-2012 influenza, seasonal, injectable Rm Goldman DDS Work Phone: [facility] 01-29-2011 influenza virus vacc ine, unspecified formulation Mohamad Mouchli [facility] 01-29-2011 influenza, seasonal, injectable Rm Goldman DDS Work Phone: [facility] 03-13-2010 influenza virus vacc ine, whole virus Rm Goldman DDS Work Phone: [facility] 03-13-2010 influenza, whole Mohamad Erica chli [facility] 04-04-2009 novel influenza-H1N1 -09, preservative-free, injectable Rm Goldman DDS Work Phone: [facility] 03-09-2008 influenza virus vacc ine, whole virus Rm Goldman DDS Work Phone: [facility] 03-09-2008 influenza, whole Mohamad Erica chli [facility] 10-01-2006 meningococcal ACWY vaccine, unspecified formulation Mohemanueld Mouchli [facility] 10-01-2006 meningococcal polysaccharide (groups A, C, Y and W-135) diphtheria toxoid conjugate vaccine (MCV4P) Rm Goldman DDS Work Phone: [facility] 09-02-2000 TD(adult) unspecifie d formulation; Translations: [Td(adult) unspecified formulation] Rm Goldman DDS Work Phone: [facility] 07-29-1990 diphtheria, tetanus toxoids and pertussis vaccine Rm Goldman DDS Work Phone: [facility] 07-29-1990 trivalent poliovirus vaccine, live, oral Rm Goldman DDS Work Phone: [facility] 11-03-1987 trivalent poliovirus vaccine, live, oral Rm Goldman DDS Work Phone: [facility] 07-02-1987 haemophilus influenz ae type b vaccine, conjugate unspecified formulation Rm Goldman DDS Work Phone: [facility] 07-02-1987 Hib, unspecified formulation Rosetteemanuelcarmelo Melendezli [facility] 05-29-1987 diphtheria, tetanus toxoids and pertussis vaccine Rm Goldman DDS Work Phone: [facility] 05-29-1987 trivalent poliovirus vaccine, live, oral Rm Goldman DDS Work Phone: [facility] 11-15-1986 measles, mumps and rubella virus vaccine Rm Goldman DDS Work Phone: [facility] 06-28-1986 trivalent poliovirus vaccine, live, oral Rm Goldman DDS Work Phone: [facility] 1985 diphtheria, tetanus toxoids and pertussis vaccine Rm Goldman DDS Work Phone: [facility] 1985 diphtheria, tetanus toxoids and pertussis vaccine Rm Goldman DDS Work Phone: [facility] 1985 trivalent poliovirus vaccine, live, oral Rm Goldman DDS Work Phone: [facility] 1985 diphtheria, tetanus toxoids and pertussis vaccine Rm Goldman DDS Work Phone: [facility] Payers Date Payer Category Payer Medicaid [id number] 1985 Unknown [id number] 2.16.8 [id number] 1985 Unknown [id number] 2.16.8 [id number] 1985 Unknown [id number] 2.16.8 [id number] 1985 Unknown [id number] 2.16.8 [id number] 1985 Unknown [id number] 2.16.8 [id number] 1985 Unknown [id number] 2.16.8 [id number] 1985 Unknown [id number] 2.16.84 [id number] 1985 Unknown [id number] 2.16. [id number] 1985 Unknown [id number] 2.16. [id number] 1985 Unknown [id number] 2.16. [id number] 1959 Medicaid [id number] Unknown [id number] 2.16.84 [id number] Unknown [id number] 2.16.84 [id number] Unknown [id number] 2.16.84 [id number] Unknown [id number] 2.16.84 [id number] Social History Date Type Detail Facility Start: 02-03-2019 End: 09-10-2023 Tobacco smoking status [facility] Never smoked tobacco [facility] Start: 02-03-2019 Tobacco use and exposure Smokeless tobacco non-user [facility] Start: 11-06-2020 End: 01-11-2024 Alcohol intake Ex-drinker (finding) [facility] Start: 1985 [facility] smoking status No Smoking Status Entered [facility] Start: 12-25-2023 Sex Assigned At Female F [facility] Tobacco smoking status Never [facility] Start: 12-25-2023 History of Social function [facility] Functional Status Date Assessment Result Facility 09-16-2023 Functional Status N/A [facility] 09-10-2023 Functional Status N/A [facility] Clinical Notes 07-14-2020 to 01-11-2024 Telephone Encounter - Kayla Fletcher - 01/11/2024 11:51 AM EDTTelephone Encounter - Kayla Fletcher - 01/11/2024 11:51 AM Divine Umana RN - 01/08/2024 4:21 PM EDTDischarge InstructionsRadiology Note Date & Type Note Facility 01-11-2024 Telephone encounter Note pt was seen in OR 01/08/24 , Stacie Montalvo DMD recommended that the pt be seen by [facility] & follow up. in progess notes it states Referral placed to [facility] but NO referral can be found in pt's chart. please place referral for oral surgery. Message sent to [facility] Kary on January 13 2024 board. Message placed on board 01/11/24 @ 1152 am [facility] 01-11-2024 Miscellaneous Notes pt was seen in OR 01/08/24 , Stacie Montalvo DMD recommended that the pt be seen by [facility] & follow up. in progess notes it states Referral placed to [facility] but NO referral can be found in pt's chart. please place referral for oral surgery. Message sent to [facility] Kary on January 13 2024 board. Message placed on board 01/11/24 @ 1152 am documented in this encounter [facility] 01-08-2024 History of Present illness Narrative 1605 Discharge instructions reviewed, caregiver states pt on mouth was at home therefore does not wish to wait for prescription documented in this encounter [facility] 01-08-2024 Hospital Discharge instructions Divine Simon RN - 01/08/2024 3:48 PM EDT Images from the original note were not included. Dental abscess The Basics Written by the doctors and editors at [facility] What is a dental abscess? -- A dental abscess is a pocket of pus that forms in the mouth (figure 1). It is caused by an infection. It is also called a tooth abscess or abscessed tooth. Dental abscesses can form in the gums, next to a tooth, or in the end of the root of a tooth. A dental abscess can be caused by bacteria that is found in plaque. Plaque is a sticky material that forms on the teeth and is made of germs and bits of food. Plaque is all throughout the mouth. Regular brushing and flossing helps you get rid of plaque. If you don't do this, plaque can turn into a hard deposit called tartar. The bacteria can also spread into the soft tissue of your teeth and gums. What causes a dental abscess? -- The most common causes are tooth decay and gum disease. Other possible causes include an injury to a tooth, or food or something else getting trapped under the gums. What are the symptoms of a dental abscess? -- Pain is a common problem with a dental abscess. The pain is often throbbing and is near a tooth. The pain might spread into your jaw, neck, or ear. Lying down, chewing, or biting can make pain worse. If the abscess ruptures or breaks open, you might have relief from the pain along with a bad taste in your mouth. A dental abscess can cause other symptoms besides pain. These might include: Fever Sensitive teeth (to hot or cold) Bleeding, red, or swollen gums Swelling in the lymph nodes in your neck, jaw, or face Trouble opening your mouth all of the way Bad breath, or a bad taste in your mouth Will I need tests? -- Most problems with the teeth and mouth are treated by a dentist. The dentist will check your teeth, gums, and mouth. They will gently touch and tap on the teeth to check them. The dentist might ask about problems with heat or cold or if the pain is worse when you lie down. Sometimes, the dentist might do other tests, like an X-ray, to check your teeth. How is a dental abscess treated? -- Treatment is based on what is causing the problem. Some of the treatments include: Antibiotics to treat the infection Making a small cut in the abscess to drain the pus, and then cleaning the area around it Removing any irritant from under the gums or between the teeth, and deep cleaning the area with special dental tools and by rinsing it Root canal - For this procedure, the dentist drills into the tooth to remove any pus and the infected pulp. Then, they seal the tooth to prevent another infection. Pulling a tooth if it cannot be repaired Is there anything I can do on my own to feel better? -- Ask the dentist what you should do when you go home. Make sure that you understand exactly what you need to do to care for yourself. Ask questions if there is anything you do not understand. Your dentist might tell you to: Take any antibiotics as prescribed. It is important to take all of your antibiotics even if you start to feel better. Take medicines to relieve pain, such as acetaminophen (sample brand name: Tylenol), ibuprofen (sample brand names: Advil, Motrin), or naproxen (sample brand name: Aleve). Avoid very cold or very hot food or drinks if they bother your tooth. Soft foods such as scrambled eggs or mashed potatoes might cause less pain with chewing. Rinse your mouth with warm salt water. This can help drain the abscess. You can make salt water by mixing 1/4 to 1/2 teaspoon (1.5 to 3 grams) of salt into 8 ounces (240 mL) of warm water. Can I do anything to prevent another dental abscess? Ruffin your teeth at least 2 times a day. Use toothpaste with fluoride. Use dental floss to clean between your teeth every day. See your dentist for regular cleaning and checkups. The dentist might put fluoride or a sealant on your teeth. Eat a healthy diet. Try to avoid or limit foods and drinks that are high in acid, sugar, and starch. These include things like chocolate, sweets, cakes, and fizzy or sugary drinks. Wear a mouth guard or headgear when playing sports. This can help to avoid tooth injury. Stop smoking, if you smoke. Your doctor, dentist, or nurse can help you. Smoking can make some dental problems worse. When should I call the doctor or dentist? -- Call for advice if: You continue to have signs of infection, such as: Fever of 100.4 F (38 C) or higher Swelling of the gums, neck, or face Discharge or pus around a tooth The pain is getting worse or keeps you from sleeping. You have trouble swallowing, breathing, chewing, or opening your mouth all of the way. You have jaw pain with ear, chest, shoulder, or arm pain. All topics are updated as new evidence becomes available and our peer review process is complete. This topic retrieved from [employer] on: Jul 29, 2023. Topic 039663 Version 1.0 Release: 32.2.4 - C32.71 2023 [employer]. and/or its affiliates. All rights reserved. figure 1: Dental abscess Adental abscess is a collection of pus from an infection in the mouth. Dentalabscesses can form in the gums, next to a tooth, or in the root of a tooth. Graphic 458024 Version 1.0 Consumer Information Use and Disclaimer Disclaimer: This generalized information is a limited summary of diagnosis, treatment, and/or medication information. It is not meant to be comprehensive and should be used as a tool to help the user understand and/or assess potential diagnostic and treatment options. It does NOT include all information about conditions, treatments, medications, side effects, or risks that may apply to a specific patient. It is not intended to be medical advice or a substitute for the medical advice, diagnosis, or treatment of a health care provider based on the health care provider's examination and assessment of a patient's specific and unique circumstances. Patients must speak with a health care provider for complete information about their health, medical questions, and treatment options, including any risks or benefits regarding use of medications. This information does not endorse any treatments or medications as safe, effective, or approved for treating a specific patient. [employer] and its affiliates disclaim any warranty or liability relating to this information or the use thereof.The use of this information is governed by the Terms of Use, available at https://www.Emme [employer]MS.Nexeon/e n/know/lnfxjppn-headzsnbxgjqz-s erms. 2023 [employer] and its affiliates and/or licensors. All rights reserved. Copyright 2023 [employer] and/or its affiliates. All rights reserved. PERIOPERATIVE DISCHARGE/HOME-GOING INSTRUCTIONS ANESTHESIA - GENERAL (ADULT) If a problem arises, you may contact your physician by calling [phone] and asking for the resident semiconductor processing technician for Dental service. Special Care Needs: Activity: Rest at home today and tomorrow, then progress to your regular activities as tolerated. Diet: Clear liquids are best tolerated at first. If you are not nauseated, you can progress your diet to solid foods as tolerated. Possible post-operative precautions: Call you doctor or clinic for: 1. Signs of infection such as fever or chills. 2. Severe pain that in not relieved by Tylenol or your pain medicine prescription. 3. You may have a sore throat - it is usually gone in 1 to 2 days. Post-anesthesia safety: Possible side effects include drowsiness, dizziness, or inability to think clearly. For your safety, do not drive, drink alcoholic beverages, take any unprescribed medication or make any important decisions for 24 hours. A responsible adult should be with you for 24 hours. If no urine by 10 pm or you become very uncomfortable and can t urinate, call [phone] or come to the emergency room. The day after surgery, a nurse will call to check on you. However, if there are any questions or concerns, please call us at the number listed in the home going instructions. documented in this encounter [facility] 01-08-2024 History and physical note Surgical Attestation: I have reviewed the patient's History and Physical Examination. I have personally seen and evaluated the patient, repeating michelle portions. There is no significant interval change. Surgery is still indicated. Yes Consent reviewed and signed by patient/family: Yes Operative site verified and marked: site verified but not marked as bilateral (not side specific) Chandler Rojas KASSIDY Marin 01/08/2024 1:47 PM [facility] 01-08-2024 Note Surgical Attestation : I have reviewed the patient's History and Physical Examination. I have personally seen and evaluated the patient, repeating michelle portions. There is no significant interval change. Surgery is still indicated. Yes Consent reviewed and signed by patient/family: Yes Operative site verified and marked: site verified but not marked as bilateral (not side specific) Chandler Yomarysol Marin DDS 01/08/2024 1:47 PM [facility] 01-08-2024 History and physical note Surgical Attestation: I have reviewed the patient's History and Physical Examination. I have personally seen and evaluated the patient, repeating michelle portions. There is no significant interval change. Surgery is still indicated. Yes Consent reviewed and signed by patient/family: Yes Operative site verified and marked: site verified but not marked as bilateral (not side specific) Chandler Yomarysol Marin DDS 01/08/2024 1:47 PM documented in this encounter [facility] 01-08-2024 Miscellaneous Notes Brief Operative Note [facility] OR 3 Vee Sarabia 38 year old female Surgical Contact Serial Number: [id number] Preoperative Diagnosis: ADHD (attention deficit hyperactivity disorder) ([facility]) 10/08/2007 Anorexia 03/16/2008 Cerebral palsy ([facility]) 10/08/2007 Late effect of adverse effect of drug, medical or biological substance 05/02/2009 Mental impairment ([facility]) 10/08/2007 Mental retardation Other bipolar disorder ([facility]) 10/08/2007 Other conduct disorders ([facility]) 10/08/2007 Seizure disorder ([facility] 10/08/2007 Postoperative Diagnosis: ADHD (attention deficit hyperactivity disorder) ([facility]) 10/08/2007 Anorexia 03/16/2008 Cerebral palsy ([facility] 10/08/2007 Late effect of adverse effect of drug, medical or biological substance 05/02/2009 Mental impairment ([facility]) 10/08/2007 Mental retardation Other bipolar disorder ([facility] 10/08/2007 Other conduct disorders ([facility] 10/08/2007 Seizure disorder ([facility] 10/08/2007 Procedures: Full mouth X-ray [60466] Full mouth cleaning [74733] Restorations [34491] Surgeon(s): Surgeon(s): Stacie Torres DMD Yoris, Orlando, DDS Staff: Tire Finisher Nurse: Gabriel Hinkle Display Carver: Chandler Parham DDS Anesthesia: General Anesthesiologist: Justin Shin MD Anesthesia Staff: Eduarda James CAA Specimen(s): * No specimens in log * Estimated Blood Loss: less than 5 cc Lines/Drains: * No LDAs found * Temporarily Retained Foreign Object: No Findings: Normal Complications: None Status at end of surgery: Stable Activity: weight bearing as tolerated Surgical wound class: No wound. Patient Class: Outpatient Surgery. Is this a patient scheduled as an outpatient that needs to be admitted as an inpatient? No Dr. Torres was present in the OR for the critical portion of the procedure and procedure sign-out. Signed by Chandler Marin DDS 01/08/2024 1:48 PM Operative Note [facility] OR 3 Vee Sarabia 38 year old female Surgical Contact Serial Number: [id number] Preoperative Diagnosis: ADHD (attention deficit hyperactivity disorder) ([facility] 10/08/2007 Anorexia 03/16/2008 Cerebral palsy ([facility]) 10/08/2007 Late effect of adverse effect of drug, medical or biological substance 05/02/2009 Mental impairment ([facility] 10/08/2007 Mental retardation Other bipolar disorder ([facility] 10/08/2007 Other conduct disorders ([facility] 10/08/2007 Seizure disorder ([facility] 10/08/2007 Postoperative Diagnosis: ADHD (attention deficit hyperactivity disorder) ([facility] 10/08/2007 Anorexia 03/16/2008 Cerebral palsy ([facility] 10/08/2007 Late effect of adverse effect of drug, medical or biological substance 05/02/2009 Mental impairment ([facility] 10/08/2007 Mental retardation Other bipolar disorder ([facility] 10/08/2007 Other conduct disorders ([facility] 10/08/2007 Seizure disorder ([facility] 10/08/2007 Surgeon: Stacie Torres DMD Phd Intern Surgeon: Chandler Marin DDS Anesthesia: General- Nasal ETT Estimated Blood Loss: 5 cc IV Fluids: 700 cc Urine Output: Not measured. Findings: The patient was brought to the operating room and placed in the supine position on the operating room table. Following satisfactory induction of GA. The patient was intubated with a nasal endotracheal tube. She was then prepped and drapped in the usual sterile fashion for dental procedures. Full mouth series were then taken and an oral examination was completed. A moistened throat pack was then placed. Full mouth scaling and root planing was then performed. The radiographs were examined by the attending and the resident and used in conjunction with th oral exam to formulate a treatment plan. The restorative aspect of the treatment plan included the following # 9 MIDLF These restorations were placed following excavation of the carious lesions on each tooth. The remaining dentition was then polished with prophy paste. The oral cavity was irrigated and suctioned then the throat pack was removed. Fluoride treament was placed on the remaining dentition. The patient tolerated the procedure well was extubated in the operating room, and taken to the PACU in stable condition. Complications: None Status at end of surgery: Stable Medications: Outpatient Medications Marked as Taking for the 01/08/24 encounter (Hospital Encounter) Medication Sig Dispense Refill lurasidone (LATUDA) 40 MG tablet Take 40 mg by mouth 2 times a day. pantoprazole (Protonix) 40 MG PACK oral packet Take 40 mg by mouth daily. ondansetron (Zofran) 4 MG tablet Take 4 mg by mouth every 12 hours as needed for Nausea. cloNIDine (CATAPRES) 0.1 MG tablet Take 0.1 mg by mouth 2 times daily. VITAMIN D ORAL Take 1,000 Units by mouth daily. Linzess 145 MCG CAPS capsule Take 145 mcg by mouth daily. montelukast (SINGULAIR) 10 MG tablet Take 10 mg by mouth daily. naltrexone 50 MG tablet Take 50 mg by mouth daily Indications: take 2 tablets twice a day. Oyster Shell 500 MG TABS Take by mouth. senna (SENNA-TABS) 8.6 MG TABS tablet Take 1 Tablet by mouth Indications: daily at 0800 and 2000. famotidine (PEPCID) 20 MG tablet Take 20 mg by mouth daily. levETIRAcetam (KEPPRA) 500 MG tablet Take 500 mg by mouth 2 times daily. levothyroxine (SYNTHROID) 75 MCG tablet Take 75 mcg by mouth daily. Take at 8 pm loratadine (CLARITIN) 10 MG tablet Take 10 mg by mouth daily. pregabalin (LYRICA) 75 MG capsule Take 75 mg by mouth 3 times daily. divalproex (DEPAKOTE) 500 MG enteric coated tablet Take 500 mg by mouth 2 times daily Indications: take one tablet in the morning and 2 tablets at bedtime. 1 tab am and 2 tab hs divalproex (DEPAKOTE SPRINKLE) 125 MG CSDR capsule Take 125 mg by mouth Indications: take 2 capsules by mouth every morning. Dictated by: Chandler Marin DDS:Dr. Torres was present for the critical portions of the procedure. Chandler Marin DDS 01/08/2024 1:53 PM Blood Attestation: ATTESTATION OF INFORMED CONSENT FOR BLOOD: The transfusion of blood and/or blood components were discussed with the patient and/or legal insurance sales representative. The risks, benefits and alternatives were reviewed. Questions regarding blood transfusions were answered. The patient /or the patient s legal insurance sales representative agree with the plan for transfusion of blood and/or blood components. documented in this encounter [facility] 01-08-2024 Surgery Postoperative evaluation and management note Brief Operative Note PHE OR 3 Vee Sarabia 38 year old female Surgical Contact Serial Number: [id number] Preoperative Diagnosis: ADHD (attention deficit hyperactivity disorder) ([facility] 10/08/2007 Anorexia 03/16/2008 Cerebral palsy ([facility] 10/08/2007 Late effect of adverse effect of drug, medical or biological substance 05/02/2009 Mental impairment ([facility]) 10/08/2007 Mental retardation Other bipolar disorder ([facility] 10/08/2007 Other conduct disorders ([facility] 10/08/2007 Seizure disorder ([facility] 10/08/2007 Postoperative Diagnosis: ADHD (attention deficit hyperactivity disorder) ([facility] 10/08/2007 Anorexia 03/16/2008 Cerebral palsy ([facility] 10/08/2007 Late effect of adverse effect of drug, medical or biological substance 05/02/2009 Mental impairment ([facility] 10/08/2007 Mental retardation Other bipolar disorder ([facility] 10/08/2007 Other conduct disorders ([facility] 10/08/2007 Seizure disorder ([facility] 10/08/2007 Procedures: Full mouth X-ray [61418] Full mouth cleaning [49109] Restorations [95797] Surgeon(s): Surgeon(s): Stacie Torres DMD Yoris, Orlando, DDS Staff: Tire Finisher Nurse: Gabriel Hinkle Display Carver: Chandler Parham DDS Anesthesia: General Anesthesiologist: Justin Shin MD Anesthesia Staff: Eduarda James CAA Specimen(s): * No specimens in log * Estimated Blood Loss: less than 5 cc Lines/Drains: * No LDAs found * Temporarily Retained Foreign Object: No Findings: Normal Complications: None Status at end of surgery: Stable Activity: weight bearing as tolerated Surgical wound class: No wound. Patient Class: Outpatient Surgery. Is this a patient scheduled as an outpatient that needs to be admitted as an inpatient? No Dr. Torres was present in the OR for the critical portion of the procedure and procedure sign-out. Signed by Chandler Marin DDS 01/08/2024 1:48 PM [facility] 01-08-2024 Surgery Surgical operation note Operative Note PHE OR 3 Vee Sarabia 38 year old female Surgical Contact Serial Number: [id number] Preoperative Diagnosis: ADHD (attention deficit hyperactivity disorder) ([facility]) 10/08/2007 Anorexia 03/16/2008 Cerebral palsy ([facility]) 10/08/2007 Late effect of adverse effect of drug, medical or biological substance 05/02/2009 Mental impairment ([facility]) 10/08/2007 Mental retardation Other bipolar disorder ([facility]) 10/08/2007 Other conduct disorders ([facility]) 10/08/2007 Seizure disorder ([facility]) 10/08/2007 Postoperative Diagnosis: ADHD (attention deficit hyperactivity disorder) ([facility]) 10/08/2007 Anorexia 03/16/2008 Cerebral palsy ([facility]) 10/08/2007 Late effect of adverse effect of drug, medical or biological substance 05/02/2009 Mental impairment ([facility]) 10/08/2007 Mental retardation Other bipolar disorder ([facility]) 10/08/2007 Other conduct disorders ([facility]) 10/08/2007 Seizure disorder ([facility]) 10/08/2007 Surgeon: Stacie Torres DMD Phd Intern Surgeon: Chandler Marin DDS Anesthesia: General- Nasal ETT Estimated Blood Loss: 5 cc IV Fluids: 700 cc Urine Output: Not measured. Findings: The patient was brought to the operating room and placed in the supine position on the operating room table. Following satisfactory induction of GA. The patient was intubated with a nasal endotracheal tube. She was then prepped and drapped in the usual sterile fashion for dental procedures. Full mouth series were then taken and an oral examination was completed. A moistened throat pack was then placed. Full mouth scaling and root planing was then performed. The radiographs were examined by the attending and the resident and used in conjunction with th oral exam to formulate a treatment plan. The restorative aspect of the treatment plan included the following # 9 MIDLF These restorations were placed following excavation of the carious lesions on each tooth. The remaining dentition was then polished with prophy paste. The oral cavity was irrigated and suctioned then the throat pack was removed. Fluoride treament was placed on the remaining dentition. The patient tolerated the procedure well was extubated in the operating room, and taken to the PACU in stable condition. Complications: None Status at end of surgery: Stable Medications: Outpatient Medications Marked as Taking for the 01/08/24 encounter (Hospital Encounter) Medication Sig Dispense Refill lurasidone (LATUDA) 40 MG tablet Take 40 mg by mouth 2 times a day. pantoprazole (Protonix) 40 MG PACK oral packet Take 40 mg by mouth daily. ondansetron (Zofran) 4 MG tablet Take 4 mg by mouth every 12 hours as needed for Nausea. cloNIDine (CATAPRES) 0.1 MG tablet Take 0.1 mg by mouth 2 times daily. VITAMIN D ORAL Take 1,000 Units by mouth daily. Linzess 145 MCG CAPS capsule Take 145 mcg by mouth daily. montelukast (SINGULAIR) 10 MG tablet Take 10 mg by mouth daily. naltrexone 50 MG tablet Take 50 mg by mouth daily Indications: take 2 tablets twice a day. Oyster Shell 500 MG TABS Take by mouth. senna (SENNA-TABS) 8.6 MG TABS tablet Take 1 Tablet by mouth Indications: daily at 0800 and 2000. famotidine (PEPCID) 20 MG tablet Take 20 mg by mouth daily. levETIRAcetam (KEPPRA) 500 MG tablet Take 500 mg by mouth 2 times daily. levothyroxine (SYNTHROID) 75 MCG tablet Take 75 mcg by mouth daily. Take at 8 pm loratadine (CLARITIN) 10 MG tablet Take 10 mg by mouth daily. pregabalin (LYRICA) 75 MG capsule Take 75 mg by mouth 3 times daily. divalproex (DEPAKOTE) 500 MG enteric coated tablet Take 500 mg by mouth 2 times daily Indications: take one tablet in the morning and 2 tablets at bedtime. 1 tab am and 2 tab hs divalproex (DEPAKOTE SPRINKLE) 125 MG CSDR capsule Take 125 mg by mouth Indications: take 2 capsules by mouth every morning. Dictated by: Chandler Marin DDS:Dr. Torres was present for the critical portions of the procedure. Chandler Marin DDS 01/08/2024 1:53 PM [employer] Work Phone: 01-08-2024 Progress note Formatting of t his note is different from the original. Blood Attestation: ATTESTATION OF INFORMED CONSENT FOR BLOOD: The transfusion of blood and/or blood components were discussed with the patient and/or legal insurance sales representative. The risks, benefits and alternatives were reviewed. Questions regarding blood transfusions were answered. The patient /or the patient s legal insurance sales representative agree with the plan for transfusion of blood and/or blood components. [employer] Work Phone: 01-08-2024 History of Present illness Narrative ----- Monday, January 08, 2024 at 3:45:54 PM ----- ----- Provider: Jarrett Torres DMD -- Clinic: [facility] ----- Pt was seen in OR under general anesthesia. comp exam, FMX and 4 quads SRP completed. Topical fluoride applied. #8 MIDLF broken tooth restored with composite. #12,13,14 present with non- restorable cervical lesions interproximally. Due to pt. mcfp Fosamax usage, recommend this patient be seen by [facility] for care and follow ups. Referral placed to [facility] See note attached. Operative Note PHE OR 3 Vee Sarabia 38 year old female Surgical Contact Serial Number: [id number] Preoperative Diagnosis: ADHD (attention deficit hyperactivity disorder) ([facility]) 10/08/2007 Anorexia 03/16/2008 Cerebral palsy ([facility]) 10/08/2007 Late effect of adverse effect of drug, medical or biological substance 05/02/2009 Mental impairment ([facility]) 10/08/2007 Mental retardation Other bipolar disorder ([facility]) 10/08/2007 Other conduct disorders ([facility]) 10/08/2007 Seizure disorder ([facility]) 10/08/2007 Postoperative Diagnosis: ADHD (attention deficit hyperactivity disorder) ([facility]) 10/08/2007 Anorexia 03/16/2008 Cerebral palsy ([facility]) 10/08/2007 Late effect of adverse effect of drug, medical or biological substance 05/02/2009 Mental impairment ([facility]) 10/08/2007 Mental retardation Other bipolar disorder ([facility] 10/08/2007 Other conduct disorders ([facility] 10/08/2007 Seizure disorder ([facility] 10/08/2007 Surgeon: Stacie Torres DMD Phd Intern Surgeon: Chandler Marin DDS Anesthesia: General- Nasal ETT Estimated Blood Loss: 5 cc IV Fluids: 700 cc Urine Output: Not measured. Findings: The patient was brought to the operating room and placed in the supine position on the operating room table. Following satisfactory induction of GA. The patient was intubated with a nasal endotracheal tube. She was then prepped and drapped in the usual sterile fashion for dental procedures. Full mouth series were then taken and an oral examination was completed. A moistened throat pack was then placed. Full mouth scaling and root planing was then performed. The radiographs were examined by the attending and the resident and used in conjunction with th oral exam to formulate a treatment plan. The restorative aspect of the treatment plan included the following # 9 MIDLF These restorations were placed following excavation of the carious lesions on each tooth. The remaining dentition was then polished with prophy paste. The oral cavity was irrigated and suctioned then the throat pack was removed. Fluoride treament was placed on the remaining dentition. The patient tolerated the procedure well was extubated in the operating room, and taken to the PACU in stable condition. Complications: None Status at end of surgery: Stable documented in this encounter [facility] 12-28-2023 Telephone encounter Note Anesthesia consent scanned into [employer]. [facility] 12-28-2023 Miscellaneous Notes Anesthesia consent scanned into [employer]. documented in this encounter [facility] 12-25-2023 Instructions Víctor Goldberg, COORDINATOR OF EVALUATION-BUTTON ATTACHING MACHINE OPERATOR - 12/25/2023 10:36 AM EDT On the [...] for pain Please hold all Vitamin E, [place] 3, fish oil and herbal supplements for 1 week prior to surgery Please hold Naltrexone 3 days prior to surgery. Last dose on 01/03. Please use this CHECKLIST to prepare for your surgery/procedure: ? Assume that any lab or testing done during your Pre-admission testing appointment is within normal limits unless otherwise contacted. ? [facility] one business day prior to surgery for [...] your Preparing for Your Surgery/Procedure booklet or [email or web address] if you have questions. Contact the Pre-Admission Testing department at [phone] or your surgeon's office with any questions [...] to coming for surgery. Patients can have formula or non-human milk (skim, 2%, whole, [...] stay with you after surgery. Please call [facility] Social Work if you need transportation assistance or have concerns about going home [phone]. ? PEDIATRIC or ADOLESCENTS: Parents or a [...] signs of dehydration. Thank you for choosing [facility]; it is our pleasure to care for you documented in this encounter [facility] 12-25-2023 Instructions Víctor Goldberg APRN-CNP - 12/25/2023 10:36 AM EDT On the [...] for pain Please hold all Vitamin E, [place] 3, fish oil and herbal supplements for 1 week prior to surgery Please hold Naltrexone 3 days prior to surgery. Last dose on 01/03. Please use this CHECKLIST to prepare for your surgery/procedure: ? Assume that any lab or testing done during your Pre-admission testing appointment is within normal limits unless otherwise contacted. ? Expect a call from [employer] one business day prior to surgery for [...] your Preparing for Your Surgery/Procedure booklet or [email or web address] if you have questions. Contact the Pre-Admission Testing department at [phone] or your surgeon's office with any questions [...] to coming for surgery. Patients can have formula or non-human milk (skim, 2%, whole, [...] stay with you after surgery. Please call [employer] [facility] if you need transportation assistance or have concerns about going home [phone]. ? PEDIATRIC or ADOLESCENTS: Parents or a [...] signs of dehydration. Thank you for choosing [facility]; it is our pleasure to care for you documented in this encounter [facility] 12-25-2023 History of Present illness Narrative Images from the original note were not included. Pre-Admission Testing Consultation Vee Sarabia, [id number] 38 year old Female 12/26/2023 Consult placed to [facility] by Dr. Almaraz due to significant PMH of caries. [facility] Triage Risk Score Total Score: 2 2 Patient is on more than 2 antihypertension medications. Vee Sarabia is scheduled for DENTAL RESTORATIONS on 01/08/2024. Pre-Op diagnosis of: Pre-Op Diagnosis Codes: * Caries [K02.9] HISTORY OF PRESENT ILLNESS: Patient presents today with a history of caries. Patient is here for pre-admission optimization and education prior to surgery. She is accompanied with her caregiver at [employer], Dora Saucedo, who is helping review the patient's current and past medical history. Gabriela Rodriguez (mother--phone-- [phone]) is legal guardian. 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 Pre-Admission Testing Consultation Vee Sarabia, [id number] 38 year old Female 12/26/2023 Consult placed to [facility] by Dr. Almaraz due to significant PMH of caries. [facility] Triage Risk Score Total Score: 2 2 Patient is on more than 2 antihypertension medications. Vee Sarabia is scheduled for DENTAL RESTORATIONS on 01/08/2024. Pre-Op diagnosis of: Pre-Op Diagnosis Codes: * Caries [K02.9] HISTORY OF PRESENT ILLNESS: Patient presents today with a history of caries. Patient is here for pre-admission optimization and education prior to surgery. She is accompanied with her caregiver at [employer], Dora Saucedo, who is helping review the patient's current and past medical history. Gabriela Rodriguez (mother--phone-- [phone]) is legal guardian. 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 Almaraz due to significant PMH of caries. [facility] Triage Risk Score Total Score: 2 2 Patient is on more than 2 antihypertension medications. Vee Sarabia is scheduled for DENTAL RESTORATIONS on 01/08/2024. Pre-Op diagnosis of: Pre-Op Diagnosis Codes: * Caries [K02.9] HISTORY OF PRESENT ILLNESS: Patient presents today with a history of caries. Patient is here for pre-admission optimization and education prior to surgery. She is accompanied with her caregiver at [employer], Dora Saucedo, who is helping review the patient's current and past medical history. Gabriela Rodriguez (mother--phone-- [phone]) is legal guardian. 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 CURRENT MEDICATION LIST: Current Outpatient Medications Medication [...] mg by mouth daily. naltrexone 50 MG t (more content not included)... [employer] 09-17-2023 Note [id number] [facility] 09-16-2023 Hospital Discharge instructions Patient Education 09/16/2023 08:49:14 Gastritis, Adult, Bshy-qa-Tdte Gastritis, Adult Gastritis is irritation and swelling [...] Follow these instructions at home: Medicines Take bteo-xfk-hxapgxb and prescription medicines only as told by [...] provider. Document Revised: 09/07/2021 Document Reviewed: 09/07/2021 [employer] Patient Education 2022 [employer]. 09/16/2023 08:49:01 Endoscopy, Care After Procedure [facility] Endoscopy Care After Procedure Please [...] 12/16/2004 Document Re-Released: 10/26/2006 ExitCare Patient Information 2009 [employer]. Follow Up Care 09/10/2023 09:54:49 With:Jessee Nina Address: [address] [place] [address], [address] [place] [address]- [phone] [facility] (1) When:1 to 2 weeks Comments:Call for any problems. [facility] 09-16-2023 Note Endoscopy Care After Procedure Please [...] Document Re-Released: 10/26/2006 ExitCare? Patient Information ?2009 [employer]. Infectious Disease Gastritis, Adult Gastritis is irritation [...] these instructions at home: Medicines ? Take jkiu-wcw-hqieqes and prescription medicines only as told by [...] ask your do (more content not included)... [facility] 07-22-2022 History of Present illness Narrative ----- Friday, July 22, 2022 at 11:19:05 AM ----- ----- Provider: Grayson Ku, Resident -- Clinic: [place] ----- OR EVALUATION Patient presents for evaluation [...] Legal Guardian is Gabriela Rodriguez( Mother ): [phone] Dad Bhargav Sarabia [phone] Contact information; [facility] [phone] Extension# [phone] Next Visit: OR ----- Signed on Friday, July 22, 2022 at 12:31:54 PM ----- ----- Provider: [id number] Chinyere Jain DDS -- Clinic: [place] ----- documented in this encounter [facility] 07-14-2020 Note Patient Outreach ([place] VAM[facility]) VEE SARABIA ([id number]) 1985 F NFR Date Time Provider Department 07/14/20 PUMA SPEAR During your visit today, we recorded the following information about you: Allergies As of Date: 07/14/2020 Noted Allergy Reaction SEASONAL ALLERGIES 11/08/2010 16 - Unknown Date Reviewed: 07/05/2019 Reviewed by: Clover Ng Ma - Fully Assessed Order(s):SARS-COVID VACCINE 1ST DOSE APPT [[id number]] Order #: [id number] FUTURE Prescriptions as of 07/14/2020 Sig: FLUTICASONE [...] MG* Take 325 mg by mouth once mackenzei* * LEVETIRACETAM 500 MG TABLET Take 500 [...] palsy (HCC) [G80.9] 06/26/2015 Encounter Status:Closed by GURDEEP DELCIDUSER on 07/17/20 [facility] Evaluation + Plan note No data available for this section [facility] Evaluation + Plan note Future Appointments Appointment Date:09/16/2023 08:00:00 AM Scheduled Provider: Location:[facility] Appointment Type:Surgery FT Future Scheduled TestsNM Gastric Emptying Study 09/10/23 [facility] Evaluation + Plan note Future Appointments Appointment Date:09/23/2023 10:30:00 AM Scheduled Provider: Location:[facility] Appointment Type:NM Gastric Emptying Study (FT) Future Scheduled TestsNM Gastric Emptying Study 09/23/23 [facility] Evaluation note Diagnosis Caries- Primary Unspecified dental caries Preop testing- Primary Preoperative examination, unspecified Body mass index (BMI) 31.0-31.9, adult Caries Unspecified dental caries [facility] Caries- Primary Unspecified dental caries Preop testing- Primary Preoperative examination, unspecified Body mass index (BMI) 31.0-31.9, adult Abnormal electrocardiogram (ECG) (EKG) Caries Unspecified dental caries [facility] Diagnosis Caries- Primary Unspecified dental caries [facility] No data available for this section [facility] No data available for this section [facility] Summary Purpose Family History No Family History Records FoundNo Family History Records Found No data available for this section No data available for this section No data available for this section No data available for this section No Family History Records FoundNo Family History Records FoundNo Family History Records Found Advance Directives No Advanced Directives Records FoundNo Advanced Directives Records FoundNo Advanced Directives Records FoundNo Advanced Directives Records FoundNo Advanced Directives Records Found Additional Source Comments INFORMATION SOURCE (unrecogn ized section and content) DATE CREATED AUTHOR 06/15/2021 [facility] DATE CREATED AUTHOR AUTHOR'S ORGANIZ ATION 10/01/2022 [facility] DATE CREATED AUTHOR AUTHOR'S ORGANIZ ATION 09/28/2023 [facility] DATE CREATED AUTHOR AUTHOR'S ORGANIZ ATION 01/06/2024 [facility] EPIC DATE CREATED AUTHOR AUTHOR'S ORGANIZ ATION 01/11/2024 [facility] Care Teams (unrecognized sec tion and content) French Instructor Relationship Specialty Start Date End Date Rm Goldman DDS [address] [place] [address] Resident Dentistry 02/21/20 Mony Adler, GONZALES-BUTTON ATTACHING MACHINE OPERATOR [address] [place] [address] [place] [address] SPOOL TENDER Anesthesiology 11/16/20 French Instructor Relationship Specialty Start Date End Date SusiRm tavarezKASSIDY [address] [place] [id number] Resident Dentistry 02/21/20 Mony Adler APRN-BUTTON ATTACHING MACHINE OPERATOR [address] [place] [address] [place] [address] SPOOL TENDER Anesthesiology 11/16/20 French Instructor Relationship Specialty Start Date End Date Rm GolmdanKASSIDY [address] [place] [id number] Resident Dentistry 02/21/20 Mony Adler APRN-CNP [address] [place] [address] [place] [address] SPOOL TENDER Anesthesiology 11/16/20 French Instructor Relationship Specialty Start Date End Date Rm GoldmanKASSIDY [address] [place] [id number] Resident Dentistry 02/21/20 Mony Adler APRN-BUTTON ATTACHING MACHINE OPERATOR [address] [place] [address] [place] [address] SPOOL TENDER Anesthesiology 11/16/20 French Instructor Relationship Specialty Start Date End Date Rm GoldmanKASSIDY [address] [place] [id number] Resident Dentistry 02/21/20 Mony Adler APRN-CNP [address] [place] [address] [place] [address] SPOOL TENDER Anesthesiology 11/16/20 French Instructor Relationship Specialty Start Date End Date Rm Goldman [address] [address] Resident Dentistry 02/21/20 Mony Adler APRN-CNP [address] [place] [address] [place] [address] SPOOL TENDER Anesthesiology 11/16/20 French Instructor Relationship Specialty Start Date End Date Rm Goldman [address] [address] Resident Dentistry 02/21/20 Mony Adler APRN-CNP [address] [place] [address] [place] [address] SPOOL TENDER Anesthesiology 11/16/20 French Instructor Relationship Specialty Start Date End Date Rm Goldman [address] [address] Resident Dentistry 02/21/20 Mony Adler APRN-CNP [address] [place] [address] [place] [address] SPOOL TENDER Anesthesiology 11/16/20 French Instructor Relationship Specialty Start Date End Date Rm Goldman [address] [address] Resident Dentistry 02/21/20 Mony Adler APRN-CNP [address] [place] [address] [place] [address] SPOOL TENDER Anesthesiology 11/16/20 Reason for Visit (unrecogniz ed section and content) Reason Onset Date Comments Pre-surgical Evaluation 01/06/2024 DD adult dental restorations 01/07 under [place] at [facility]. PAT completed - consents obtained. PAT RN spoke to Cassidy, confirmed NPO except water only until 0900 (Cassidy stated pt does not like and will not drink water), [facility] address, and 1100 arrival time Specialty Diagnoses / Procedures Referred By Ebony snyder Referred To Contact Ambulatory Surgery Diagnoses Caries Caries [[email or web address]] Procedures ANESTHESIA, INTRAORAL PROC, W/BX; NOS UNLISTED PROCEDURE, DENTOALVEOLAR STRUCTURES DENTAL RESTORATIONS Stacie Torres DMD [address] [place] [address] [facility] [address] [place] [address] Phone: [phone] Referral ID Status Reason Start Date Expiration Date Visits Re quested Visits Authorized [id number] 3 Reason Onset Date Comments Referral needs placed for OS 01/11/2024 Continuous Active and Recently Administ ered Medications (unrecognized section and content) Medication Order 01/06/2024 01/07/2024 01/08/2024 lactated ringers iv infusion Intravenous, at 125 mL/hr, CONTINUOUS, Starting on Thu01/08/24 at 1130, Until Discontinued 1130 (Due) lactated ringers iv infusion Intravenous, at 125 mL/hr, CONTINUOUS, Starting on Thu01/08/24 at 1200, Until Discontinued 1200 (Due) PRN Medication Order 01/06/2024 01/07/2024 01/08/2024 naloxone (NARCAN) 0.4 MG/ML injection 0.4 mg, Intravenous Push, PRN, Starting on Thu01/08/24 at 1128, Until Discontinued, Respiratory Rate Less Than 8 for adults and less than 12 for Peds or for suspected overdose, PACU Now ondansetron (ZOFRAN) 4 MG/2ML injection 4 mg, Intravenous Push, PACU ONCE PRN, Starting on Thu01/08/24 at 1128, Until Thu01/08/24 at 1727, Nausea, Vomiting, PACU Now sodium chloride 0.9 % injection 3 mL, Intravenous Push, PRN, Starting on Thu01/08/24 at 1128, Until Discontinued, For medication administration and blood draw, PACU Now No Frequency Medication Order 01/06/2024 01/07/2024 01/08/2024 midazolam (VERSED) 2 MG/ML oral syrup (COMPLETED) 1 dose, Starting on Thu01/08/24 at 1333, Until Thu01/08/24 at 1339 1339 (Given - Provid er: Janie Coreas RN) FOR RECORDS PERTAINING TO PATIENTS WHO ARE [...] BE BASED ON THE PRIMARY CLINICAL RECORDS. [facility]. provides no warranty or guarantee of the accuracy or completeness of information in this document.
--- OUTSIDE RECORDS SUMMARY | 2024-01-15 07:19 | XMS_ITS | CCD ---
Author Organization [facility] CliniSywi Care Team Providers Care Oracle Fusion Middleware Architect Name Role Phone Rm Goldman DDS Unavailable Vitor ROLON-CAROLE, Mony Unavailable KHRIS, DR BALJIT Whaley Consulting Unavailable PINEDO, DR BALJIT Whaley Primary Care Unavailable PINEDO, DR BALJIT Whaley Admitting Unavailable PINEDO, DR BALJIT Whaley Attending Unavailable PINEOD, DR BALJIT Whaley Consulting Unavailable PINEDO, DR [...] Medication Allergies] Propensity to adverse reactions (disorder) [facility] Repository (8 sources) Diazepam; Translations: [DIAZEPAM] Propensity to adverse reactions to drug 4 [facility] (8 sources) diphenhydrAMINE; Translations: [DIPHENHYDRAMINE ] Drug Allergy 4 [facility] (8 sources) trichloroacetald ehyde; Translations: [CHLORAL HYDRATE] Drug Allergy 4 [facility] Medications Current Medications Medication Drug Class(es) Dates [...] Ordered Start: 10-17-2020 take 1 capsule by [facility] once daily Linzess 145 MCG CAPS [...] Status: Ordered take 1 capsule by mo [facility] three times daily pregabalin (LYRICA) 75 [...] (Discontinued by another Health Care Provider) sennosides, RETIREMENT (12 sources) Start: 09-10-2023 senna Oral, BI [...] 07-29-2013 Chronic Other aftercare (5 sources) Other jail (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; Translations: [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 in progess notes it states Referral placed to [facility] but NO referral can be found in pt's chart. please place referral for oral surgery. Message sent to [facility] Kary on January 13 2024 board. Message placed on board 01/11/24 @ 1152 am Normal [facility] [employer] [facility] Anesthesia Postprocedure Felicia rodriguezationon 01-08-2024 Marketing Analyst Authentication Interface Message Text Anesthesia Postoperative Assessment: [...] EVENTS: No notable events documented. Normal [facility] [employer] [facility] Anesthesia Preprocedure Eval uationon 01-08-2024 Marketing Analyst Authentication Interface Message Text ASA: 3 No [...] previous ECGs available Confirmed by LORENZA PARKS ([id number]) on 12/28/2023 8:11:02 PM GI/Hepatic/Renal Comment: - S/P cholecystectomy 2009 Heme/Other - negative ROS Other ROS: - Hx. Of dental restorations - Seasonal allergies - Gabriela Rodriguez (mother--phone-- [phone]) is legal guardian Physical Exam Airway Mallampati: [...] alternatives discussed pre-op (Anesthesia consent scanned into Primo1D.) Questions answered / anesthesia plan accepted (Anesthesia consent scanned into Primo1D.) Past medical history, surgical history, allergies, and medications reviewed and Pertinent laboratory tests, EKG, imaging, and consults reviewed Attestation: Anesthesia options were discussed with the patient and/or legal community relations representative. The risks, benefits and alternatives were reviewed. Questions regarding anesthesia were answered. Patient and/or legal community relations representative knows such anesthetics and procedures may be performed by Resident physicians, Certified Anesthesiologist Assistants, or Certified Nurse Anesthetists under the supervision of a physician. The patient /or the patient's legal community relations representative agree with the plan for anesthesia. Comment: Anesthesia consent scanned into Primo1D. MHPATFORM Normal [facility] [employer] [facility] Anesthesia [facility] 01-08-2024 Marketing Analyst Authentication Interface Message Text Patient taken to [...] DENTAL RESTORATIONS; Surgeon: Fernando Kurtz DDS; Location: [facility] Surgery [place]; Service: Dental DENTAL RESTORATIONS (11/05/2020) Procedure: DENTAL RESTORATIONS; Surgeon: Dru Friedman DDS; Location: [facility] Surgery [place]; Service: Dental Allergies: Benadryl [diphenhydramine], Chloral hydrate, and Valium [diazepam] Basic Operating Room Facts: Surgeon(s): Stacie Torres DMD Anesthesiologist: Justin Shin MD CAA: Eduarda James CAA Log Buyer: Dania Melara MD DENTAL RESTORATIONS Intraoperative Events: No acute [...] was received. Justin Shin MD Normal [facility] [employer] [facility] Blood Attestationon 01-08-20 Marketing Analyst Authentication Interface Message Text Blood Attestation: ATTESTATION OF INFORMED CONSENT FOR BLOOD: The transfusion of blood and/or blood components were discussed with the patient and/or legal community relations representative. The risks, benefits and alternatives were reviewed. Questions regarding blood transfusions were answered. The patient /or the patient's legal community relations representative agree with the plan for transfusion of blood and/or blood components. Normal [facility] [employer] [facility] Brief Operative Noteon 01-07 Marketing Analyst Authentication Interface Message Text Brief Operative Note PHE OR 3 Vee Sarabia 38 year old female Surgical Contact Serial Number: [id number] Preoperative Diagnosis: ADHD (attention deficit hyperactivity disorder) ([facility]) 10/08/2007 Anorexia 03/16/2008 Cerebral palsy ([facility]) 10/08/2007 Late effect of adverse effect of drug, medical or biological substance 05/02/2009 Mental impairment ([facility]) 10/08/2007 Mental retardation Other bipolar disorder ([facility]) 10/08/2007 Other conduct disorders ([facility]) 10/08/2007 Seizure disorder ([facility]) 10/08/2007 Postoperative Diagnosis: ADHD (attention deficit hyperactivity disorder) ([facility]) 10/08/2007 Anorexia 03/16/2008 Cerebral palsy ([facility]) 10/08/2007 Late effect of adverse effect of drug, medical or biological substance 05/02/2009 Mental impairment ([facility]) 10/08/2007 Mental retardation Other bipolar disorder ([facility]) 10/08/2007 Other conduct disorders ([facility]) 10/08/2007 Seizure disorder ([facility]) 10/08/2007 Procedures: Full mouth X-ray [71180] Full mouth cleaning [93021] Restorations [46113] Surgeon(s): Surgeon(s): Stacie Torres DMD Yoris, Orlando, DDS Staff: Gardener Florist Nurse: Gabriel Hinkle Terminal Gauger Supervisor: Chandler Parham DDS Anesthesia: General Anesthesiologist: Justin [...] Marin DDS 01/08/2024 1:48 PM Normal [facility] HCG, QUANTITATIVEon 01-08-20 24 [facility] Interpretation and review of laboratory results Normal [facility] HCG < 0.6 Normal <5.0 [facility] Comment on above: Performed By: #### H CG #### [facility] [address] [place], [address] OP Noteon 01-08-2024 Marketing Analyst Authentication Interface Message Text Operative Note PHE OR 3 Vee Sarabia 38 year old female Surgical Contact Serial Number: [id number] Preoperative Diagnosis: ADHD (attention deficit hyperactivity disorder) ([facility]) 10/08/2007 Anorexia 03/16/2008 Cerebral palsy ([facility]) 10/08/2007 Late effect of adverse effect of drug, medical or biological substance 05/02/2009 Mental impairment ([facility]) 10/08/2007 Mental retardation Other bipolar disorder ([facility]) 10/08/2007 Other conduct disorders ([facility]) 10/08/2007 Seizure disorder ([facility]) 10/08/2007 Postoperative Diagnosis: ADHD (attention deficit hyperactivity disorder) ([facility]) 10/08/2007 Anorexia 03/16/2008 Cerebral palsy ([facility]) 10/08/2007 Late effect of adverse effect of drug, medical or biological substance 05/02/2009 Mental impairment ([facility]) 10/08/2007 Mental retardation Other bipolar disorder ([facility]) 10/08/2007 Other conduct disorders ([facility]) 10/08/2007 Seizure disorder ([facility]) 10/08/2007 Surgeon: Stacie Torres DMD Police Captain Surgeon: Chandler Marin DDS Anesthesia: General- Nasal [...] Marin DDS 01/08/2024 1:53 PM Normal [facility] Progress Noteson 01-08-2024 Marketing Analyst Authentication Interface Message Text [id number] Discharge instructions reviewed, caregiver states pt on mouth was at home therefore does not wish to wait for prescription Normal [facility] [employer] [facility] Marketing Analyst Authentication Interface Message Text ----- Monday, January 08, 2024 at 3:45:54 PM ----- ----- Provider: Jarrett Torres DMD -- Clinic: [facility] ----- Pt was seen in OR under general anesthesia. comp exam, FMX and 4 quads SRP completed. Topical fluoride applied. #8 MIDLF broken tooth restored with composite. #12,13,14 present with non- restorable cervical lesions interproximally. 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 Referral placed to [facility] See note attached. Operative Note PHE OR 3 Vee Sarabia 38 year old female Surgical Contact Serial Number: [id number] Preoperative Diagnosis: ADHD (attention deficit hyperactivity disorder) ([facility]) 10/08/2007 Anorexia 03/16/2008 Cerebral palsy ([facility]) 10/08/2007 Late effect of adverse effect of drug, medical or biological substance 05/02/2009 Mental impairment ([facility]) 10/08/2007 Mental retardation Other bipolar disorder ([facility]) 10/08/2007 Other conduct disorders ([facility]) 10/08/2007 Seizure disorder ([facility]) 10/08/2007 Postoperative Diagnosis: ADHD (attention deficit hyperactivity disorder) ([facility]) 10/08/2007 Anorexia 03/16/2008 Cerebral palsy ([facility]) 10/08/2007 Late effect of adverse effect of drug, medical or biological substance 05/02/2009 Mental impairment ([facility]) 10/08/2007 Mental retardation Other bipolar disorder ([facility]) 10/08/2007 Other conduct disorders ([facility]) 10/08/2007 Seizure disorder ([facility]) 10/08/2007 Surgeon: Stacie Torres DMD Police Captain Surgeon: Chandler Marin DDS Anesthesia: General- Nasal [...] at end of surgery: Stable Normal [facility] [employer] [facility] Anesthesia Preprocedure Eval uationon 01-07-2024 Marketing Analyst Authentication Interface Message Text ASA: 3 Past [...] previous ECGs available Confirmed by LORENZA PARKS ([id number]) on 12/28/2023 8:11:02 PM GI/Hepatic/Renal Comment: - S/P cholecystectomy 2009 Heme/Other Other ROS: - Hx. Of dental restorations - Seasonal allergies - Gabriela Rodriguez (mother--phone-- [phone]) is legal guardian Physical Exam Airway Dental Dentition: dental caries. Pulmonary Cardiovascular Neuro Disoriented and motor deficit Comment: Cerebral palsy Plan Anesthesia plan: general; (ETT) Anesthesia risks / alternatives discussed pre-op (Anesthesia consent scanned into Primo1D.) Questions answered / anesthesia plan accepted (Anesthesia consent scanned into Primo1D.) Past medical history, surgical history, allergies, and medications reviewed and Pertinent laboratory tests, EKG, imaging, and consults reviewed Attestation: Comment: Anesthesia consent scanned into Primo1D. MHPATFORM Normal [facility] [employer] [facility] EKG 12 LEAD - PERFORMon 12-16 Diagnosis Normal sinus rhythm Nonspecific T wave abnormality Abnormal ECG No previous ECGs available Confirmed by LORENZA PARKS ([id number]) on 12/28/2023 8:11:02 PM [facility] P wave Atrium by EKG 75 BPM [facility] P wave axis 23 degrees [facility] P-R Interval 130 ms [facility] Q-T interval 390 ms [facility] Q-T interval corrected 435 ms [facility] QRS axis 42 degrees [facility] QRS duration 86 ms [facility] T wave axis [address] [facility] Telephone Encounteron 2023 Marketing Analyst Authentication Interface Message Text Anesthesia consent scanned into Primo1D. Normal [facility] BASIC METABOLIC PANELon 08 Anion gap [Moles/Vol] 13 mmol/L Normal 10-20 [facility] Comment on above: Performed By: #### C H8 #### [facility] [address] [place] [address], Calcium [Mass/Vol] 9.0 mg/dL Normal 8.6-10.3 [facility] Comment on above: Performed By: #### C H8 #### [facility] [address] [place] [address], Chloride [Moles/Vol] 102 mmol/L Normal 98-107 [facility] Comment on above: Performed By: #### C H8 #### [facility] [address] [place] [address], CO2 [Moles/Vol] 23 mmol/L Normal 21-31 [facility] Comment on above: Performed By: #### C H8 #### [facility] [address] [place] [address], Creatinine [Mass/Vol] 0.36 mg/dL Low 0.60-1.20 [facility] Comment on above: Performed By: #### C H8 #### [facility] [address] [place] [address], ESTIMATED GFR (CKD-EPI) 133 mL/min/1.73sqm Normal >=60 The [facility] Comment on above: Result Comment: 2020 [...] Inclusion of Race in Diagnosing Kidney Disease. Canadian Journal of Kidney Diseases 202;79(2):268-88.e1. 2. N Engl J Med 1 Vol. 385 Issue 19 Pages 1491-0225 Performed By: #### C H8 #### [facility] [address] [place], [place], Glucose [Mass/Vol] 85 mg/dL Normal 74-109 The [facility] Comment on above: Performed By: #### C H8 #### [facility] [address] [place], [place], Potassium [Moles/Vol] 4.4 mmol/L Normal 3.5-5.0 The [facility] Comment on above: Performed By: #### C H8 #### [facility] [address] [place], [place], Sodium [Moles/Vol] 134 mmol/L Low 136-145 The [facility] Comment on above: Performed By: #### C H8 #### [facility] [address] [place], [place], Urea nitrogen [Mass/Vol] 7 mg/dL Normal 7-25 The [facility] Comment on above: Performed By: #### C H8 #### [facility] [address] [place], [place], Basic metabolic 2000 panelon 12-25-2023 Anion gap [Moles/Vol] 13 mmol/L 10 - [address] [facility] Calcium [Mass/Vol] 9.0 mg/dL 8.6 - 10. [...] Inclusion of Race in Diagnosing Kidney Disease. Canadian Journal of Kidney Diseases 202;79(2):268-88.e1. 2. N Engl J Med 2020 Vol. 385 Issue 19 Pages 6090-3489 Glucose [Mass/Vol] 85 mg/dL 74 - 109 [...] on above: Performed By: #### C BC ####[facility] [id number] [place], [place], Hematocrit (Bld) [Volume fraction] 33.5 % Low 36.0-46.0 [facility] Comment on above: Performed By: #### C BC ####[facility] [id number] [place], [place], Hemoglobin (Bld) [Mass/Vol] 10.8 g/dL Low 12.0-15.0 [facility] Comment on above: Performed By: #### C BC ####[facility] [id number] [place], [place], MCH (RBC) [Entitic mass] 31.1 pg Normal 26.0-34.0 [facility] Comment on above: Performed By: #### C BC ####[facility] [id number] [place], [place], MCHC (RBC) [Mass/Vol] 32.3 g/dL Normal 32.0-35.9 [facility] Comment on above: Performed By: #### C BC ####[facility] [id number] [place], [place], MCV (RBC) [Entitic vol] 96 fL Normal 80-100 [facility] Comment on above: Performed By: #### C BC ####[facility] [id number] [place], [place], Platelet mean volume (Bld) [Entitic vol] 9.3 fL Normal 7.5-11.2 [facility] Comment on above: Performed By: #### C BC ####[facility] [id number] [place], [place], Platelets (Bld) [#/Vol] 425 10*3/uL High 150-400 [facility] Comment on above: Performed By: #### C BC ####[facility] [id number] [place], [place], RBC (Bld) [#/Vol] 3.48 10*6/uL Low 4.00-5.20 [facility] Comment on above: Performed By: #### C BC ####[facility] [id number] [place], [place], WBC (Bld) [#/Vol] 5.3 10*3/uL Normal 4.5-11.[address] [facility] Comment on above: Performed By: #### C BC ####[facility] [id number] [place], [place], Patient Instructionson 12-24 Marketing Analyst Authentication Interface Message Text On the morning [...] for pain Please hold all Vitamin E, [place] 3, fish oil and herbal supplements for 1 week prior to surgery Please hold Naltrexone 3 days prior to surgery. Last dose on 01/03. Please use this CHECKLIST to prepare for your surgery/procedure: ? Assume that any lab or testing done during your Pre-admission testing appointment is within normal limits unless otherwise contacted. ? Expect a call from [employer] one business day prior to surgery for [...] your Preparing for Your Surgery/Procedure booklet or [email or web address] if you have questions. Contact the Pre-Admission Testing department at [phone] or your surgeon's office with any questions [...] stay with you after surgery. Please call [employer] Social Work if you need transportation assistance or have concerns about going home [phone]. ? PEDIATRIC or ADOLESCENTS: Parents or a [...] result (more content not included)... Normal [facility] [employer] [facility] Progress Noteson 12-10-2023 Marketing Analyst Authentication Interface Message Text Parent/guardian/patient was contacted for PSE AND OR scheduled -- confirmed information with mom, also informed mom importance of receiving PSE call -- if not received surgery will be canceled OR date 01/08/2024 ----- , December 10, 2023 at 11:39:35 AM ----- ----- Provider: Mounika Lin-Senior Radiation Protection Technician -- Clinic: [place] ----- Normal [facility] [employer] [facility] NM Gastric Emptying Studyon 09-27-2023 NM [...] 30.4 3.0 hr (Upper Limit 30%) 1.5 [facility] Consent for Treatmenton Consent for Treatment [id number] F [facility] IntraOperative Documentson 0 09-18-2023 IntraOperative Documents [id number] F [facility] Progress Note-Physicianon Progress Note-Physician Patient: VEE SARABIA [...] mental retardation (I.Q. 20-34) / SNOMED CT 29363839 / Confirmed Seizure disorder / SNOMED CT 354988960 / Confirmed Seasonal allergy / SNOMED CT 3661217132 / Confirmed Pervasive developmental disorder / SNOMED CT 29945605 / Confirmed Osteoporosis / SNOMED CT 020914582 / Confirmed Impulse control disorder / SNOMED CT 814807675 / Confirmed Disruptive behavior disorder / SNOMED CT 69913463 / Confirmed Constipation / SNOMED CT 77739404 / Confirmed Cholelithiasis / SNOMED CT 228555378 / Confirmed Cerebral palsy / SNOMED CT 849895744 / Confirmed Bipolar / SNOMED CT 770153581 / Confirmed Histories Procedure history: No active procedure history items have been selected or recorded. Social History Social & Psychosocial Habits Tobacco 09/10/2023 Tobacco Use: Never (less than 100 in l Smokeless tobacco use: Never . Physical Examination Airway: Mallampati classification: II (soft palate, fauces, uvula visible). Respiratory: adequate air exchange. Cardiovascular: Regular rhythm. Plan [place] Society of Anesthesiologists (ASA) physical status classification: Class III. Anesthetic Preoperative Plan: Anesthesia General. Normal [facility] Comment on above: Result Comment: Elec [...] when meets criteria ( To home ). [facility] Comment on above: Result Comment: Elec tronically Signed By: Chaim Phillips Jr, DO\ivan\Date and Time Signed: 09/18/23 08:45 EDT Consenton 09-17-2023 Consent [id number] FF [facility] Discharge Instructionson Discharge Instructions [id number] FF [facility] Main OR Intraoperative Recor don 09-17-2023 Main OR Intraoperative Record IntraOp Document Type FT Summary Primary Physician: Kelle RAMIREZ, Jessee Chester Finalized Date/Time: 09/17/23 09:56:06 Pt. Name: VEE SARABIA /Sex: 1985 Female Med Rec #: [id number] Physician: Jessee Nina MD Financial #: [id number] Pt. Type: O Room/Bed: / Admit/Disch: 09/16/23 [...] 3 Case Attendee Margret SALMON, James Haynes AUTOMATIC EQUIPMENT TECHNICIAN, Josefa Nina MD, Jessee Cerda Role Performed Anesthesiologist Scrub - Primary Surgeon - Primary Police Captain Time In 09/16/23 08:21:00 09/16/23 08:21:00 09/16/23 08:21:00 Time Out 09/16/23 08:33:00 09/16/23 08:33:00 09/16/23 08:33:00 Procedure EGD(.) EGD(.) EGD(.) Comments Dr. Phillips is supervising Last Modified By: Kevin HERMOSILLO, Wendy Brown RN, Wendy Dennis RN 09/16/23 08:32:53 09/16/23 08:32:53 09/16/23 08:32:53 Entry 4 Case Attendee Wendy Brown RN Role Performed Gardener Florist - Primary Time In 09/16/23 08:21:00 Time [...] Out James Sidhu Given Participants Ivy Gonsales AUTOMATIC EQUIPMENT TECHNICIAN, Kelle Bean MD, Jessee Chester, Wendy Brown [...] and tissue Entry 1 Skin Integrity Intact, [place], Warm, and Skin Abnormality No Dry Outcomes [...] Leg Po (more content not included)... Normal [facility] Consent for Treatmenton Consent for Treatment [id number] F Normal [facility] Discharge Instructionson Discharge Instructions VEE SARABIA Tawanda [...] weeks Comments: Call for any problems. Where: [address] [place], [place] [address]dict [place], [address] [place] [address]- [phone] Business (1) Medications What How Much When [...] medicines, such (more content not included)... Normal [facility] Comment on above: Result Comment: Elec [...] status post biopsies. Images Procedure images: Rec1_hd_video_ [id number] Rec1_hd_video_ [id number] Rec1_hd_video_ [id number].jpg Rec1_hd_video_ [id number].jpg . Post-Procedure Complications: none. Estimated blood loss: minimal. Specimens: sent to pathology. Devices/ implants: none left in place. Impression and Plan irregular Z-line Gastropathy fundic gland polyps Status post biopsies from stomach and duodenum Recommendations: -Resume previous diet -Resume home medications -Await pathology results Normal [facility] Comment on above: Other Comment: Melissa calderón Attachment - attachment storage system not supported [id number] Can be viewed in source system Missing Attachment - attachment storage system not supported [id number] Can be viewed in source system Missing Attachment - attachment storage system not supported [id number] Can be viewed in source system Missing Attachment - attachment storage system not supported [id number] Can be viewed in source system Main OR PACU I Recordon 05-0 Main OR PACU I Record PACU Phase I Docum ent Type FT Summary Primary Physician: Kelle RAMIREZ, Jessee Chester Finalized Date/Time: 09/16/23 09:20:05 Pt. Name: VEE SARABIA /Sex: 1985 Female Med Rec #: [id number] Physician: Jessee Nina MD Financial #: [id number] Pt. Type: O Room/Bed: / Admit/Disch: 09/16/23 [...] By: Stacie Prescott RN 09/16/23 09:20 Normal [facility] Main OR Preoperative Recordo n 09-16-2023 Main OR Preoperative Record Holding Area Document Type FT Summary Primary Physician: Jessee Nina MD Finalized Date/Time: 09/16/23 07:37:45 Pt. Name: VEE SARABIA Tawanda Moses/Sex: 1985 Female Med Rec #: [id number] Physician: Jessee Nina MD Financial #: [id number] Pt. Type: O Room/Bed: / Admit/Disch: 09/16/23 [...] Adult Bill- staff from postop adult Supervision [facility] supervision available Case Cancelled in No Holding Area see comments below for reason Last Modified By: Vanessa Roy RN 09/16/23 07:35:16 General Comments: Caregiver, Bill present with patient from [facility]. /,RN Finalized By: Vanessa Roy RN Document Signatures Signed By: Vanessa Roy RN 09/16/23 07:37 Normal [facility] Monitor Recordon 09-16-2023 Monitor Record [id number] FF Normal [facility] Monitor Record [id number]#[id number] FF Normal [facility] Consent for Procedure/Surger yon 09-11-2023 Consent for Procedure/Surgery [id number]#[id number] FF [facility] Ambulatory Visit Summaryon 0 09-10-2023 Ambulatory Visit Summary ROXYJOS ELUISVEE Tawanda :1985 Visit Date:09/10/2023 Ambulatory Visit Instructions [...] Appointments Thursday. 2023 8:00 AM EDT Where: [facility] You Need to Complete the Following NM Gastric Emptying Study, 09/10/23, Routine, Order for Future Visit, Transport Mode: Ambulatory, Reason: Nausea, Nausea and vomiting Invalid Interpretation Code Early satiety [facility] Gastroenterology Office/Clin ic Noteon 09-10-2023 Gastroenterology Office/Clinic Note Chief Complaint nausea/vomiting, constipation, weight loss HPI Staff Patient is a 38 year old female who was referred by [facility] for nausea and vomiting. Intermittent nausea and [...] diphtheria/pertussis, acel/tetanus adult 08/14/2022 Recorded SARS-CoV-2 (COVID-19) [id number].[id number] 08/14/2022 Recorded influenza virus vaccine, inactivated 03/05/2022 Recorded SARS-CoV-2 (COVID-19) [id number].ORD![id number] 03/05/2022 Recorded 2023-09-09: TPVALL influenza virus vaccine, [...] Recorded measles/mumps/rubella virus vaccine 11/15/1986 Recorded Normal [facility] Comment on above: Result Comment: Elec tronically Signed By: Kelle RAMIREZ, Jessee Andrade.br\Date and Time Signed: 09/10/23 09:40 EDT Alf Recordson 09-09 Alf Records [id number] F Normal [facility] CBC w/Indiceson 04-01-2023 Erythrocyte distribution width (RBC) [Ratio] 15.4 % High 10.9-14.2 [facility] Comment on above: Performed By: #### 2 531572, 9726173, 0111048, 5024617, 3000628, 9975670, 3313148, 07698813, 8497298, 2360587 ####[facility] [address] [place] [address] Hematocrit (Bld) [Volume fraction] 37.4 % Normal 34.0-46.0 [facility] Comment on above: Performed By: #### 2 943949, 2136957, 4997080, 0429429, 8106836, 5748790, 5300893, 66352651, 8704789, 1785858 ####[facility] [address] [place] [address] Hemoglobin (Bld) [Mass/Vol] 12.1 g/dL Normal 12.0-16.0 [facility] Comment on above: Performed By: #### 2 447090, 9763583, 0604760, 5157478, 4975966, 9695888, 7478780, 19836439, 4029756, 0705957 ####[facility] [address] [place] [address] MCH (RBC) [Entitic mass] 30.9 pg Normal 27.0-34.0 [facility] Comment on above: Performed By: #### 2 295417, 4871382, 0916350, 9592711, 9368436, 7218420, 7109391, 48011934, 1544122, 7802987 ####[facility] [address] [place] [address] MCHC (RBC) [Mass/Vol] 32.4 g/dL Normal 31.4-36.0 [facility] Comment on above: Performed By: #### 2 410734, 1686611, 4497162, 0672277, 1073171, 0832594, 4895417, 90159077, 7214791, 2323122 ####[address] [address] MCV (RBC) [Entitic vol] 95.6 fL Normal 80.0-100.0 [facility] Comment on above: Performed By: #### 2 468605, 2830071, 2295772, 4478734, 4820337, 3985417, 1028430, 90543503, 3077418, 6350958 ####[address] [place] [address] Platelet mean volume (Bld) [Entitic vol] 12.2 fL High 6.4-10.8 [facility] Comment on above: Performed By: #### 2 461565, 0875255, 1328788, 1249627, 7516209, 0582509, 8638094, 37347896, 0340088, 4203209 ####[address] [place] [address] Platelets (Bld) [#/Vol] 309.0 E9/L Normal 150. 0-500. 0 [facility] Comment on above: Performed By: #### 2 998324, 1315052, 0309382, 1881158, 8945441, 7894813, 9578794, 71490905, 9308613, 1670657 ####[facility] [address] [place] [address] RBC (Bld) [#/Vol] 3.9 E12/L Low 4.3-5.9 [facility] Comment on above: Performed By: #### 2 303426, 7300775, 3765896, 2902408, 7753403, 8252276, 2406403, 95522414, 1991965, 1236489 ####[facility] [address] [place] [address] WBC corrected for nucl RBC Auto (Bld) [#/Vol] 6.5 E9/L Normal 4.0-11.0 [facility] Comment on above: Performed By: #### 2 472399, 0565701, 4956666, 4957141, 1713788, 5320809, 2976353, 93125521, 1393045, 6151759 ####[facility] [address] [place] [address] CHEMISTRYOrdered By: SYSTEM SYSTEM on 04-01-2023 Albumin [...] 04-01-2023 Albumin [Mass/Vol] 3.7 g/dL Normal 3.3-5.0 [facility] Comment on above: Performed By: #### 2 680245, 7234436, 4157735, 5714742, 3942653, 3596783, 4322758, 44967802, 4616031, 6889434 ####[facility] [address] [place] [address] Albumin/Globulin (S) [Mass conc ratio] 1.2 Normal 1.1-2.2 [facility] Comment on above: Performed By: #### 2 239445, 4410954, 9620122, 0006161, 7961907, 8099383, 5502595, 23216268, 4602163, 5130211 ####[facility] [address] [place] [address] ALP [Catalytic activity/Vol] 32 Int._Unit/L Normal 21-98 [facility] Comment on above: Performed By: #### 2 993775, 0489965, 4772799, 5803677, 2085051, 9144779, 4455387, 23502260, 7087736, 2209423 ####[facility] [address] [place] [address] ALT No additional P-5'-P [Catalytic activity/Vol] 24 Int._Unit/L Normal 6-46 [facility] Comment on above: Performed By: #### 2 496348, 9054954, 8269529, 5802933, 0215369, 8652892, 6319703, 94071667, 1336399, 2319115 ####[facility] [address] [place] [address] Anion gap [Moles/Vol] 13 mmol/L Normal 6-16 [facility] Comment on above: Performed By: #### 2 747909, 0519086, 9239028, 5666714, 6931350, 9193874, 2076201, 51084143, 1709329, 4642889 ####[facility] [address] [place] [address] AST [Catalytic activity/Vol] 28 Int._Unit/L Normal 5-43 [facility] Comment on above: Performed By: #### 2 204333, 4722879, 5261659, 8235068, 4262118, 0126134, 3115889, 63496808, 3490701, 0809135 ####[facility] [address] [place] [address] Bilirubin [Mass/Vol] 0.1 mg/dL Normal 0.0-1.[address] [facility] Comment on above: Performed By: #### 2 441035, 4684474, 6591052, 6637320, 0073881, 7227084, 0526273, 69906231, 4322571, 2960031 ####[facility] [address] [place] [address] Calcium [Mass/Vol] 8.9 mg/dL Normal 8.9-11.1 [facility] Comment on above: Performed By: #### 2 691659, 9346202, 0747626, 5738820, 9434844, 9788110, 4149587, 76905082, 9026773, 7186528 ####[facility] [address] [place] [address] Chloride [Moles/Vol] 98 mmol/L Low 101-[address] [facility] Comment on above: Performed By: #### 2 038746, 6780253, 7597057, 3595216, 8847086, 1481556, 4216647, 19046490, 6346956, 0367478 ####[facility] [address] [place] [address] CO2 [Moles/Vol] 24 mmol/L Normal 21-31 [facility] Comment on above: Performed By: #### 2 653347, 3309996, 5890585, 8328403, 9870881, 4664336, 8090460, 63260997, 5712630, 9987746 ####[facility] [address] [place] [address] Creatinine [Mass/Vol] 0.5 mg/dL Normal 0.5-1.3 [facility] Comment on above: Performed By: #### 2 371462, 4668130, 5369952, 1440364, 3534323, 0890917, 8797004, 01994564, 3116290, 8305644 ####[facility] [address] [place] [address] Globulin (S) [Mass/Vol] 3.2 g/dL Normal 1.4-4.0 [facility] Comment on above: Performed By: #### 2 596737, 8050867, 0516262, 5149724, 3385118, 3399617, 3849660, 59733352, 1747169, 8257784 ####[facility] [address] [place] [address] Glucose [Mass/Vol] 86 mg/dL Normal 55-199 [facility] Comment on above: Result Comment: If t his glucose result represents a fasting glucose, interpretation should refer to the following reference range: 55-99 mg/dL Performed By: #### 2 539628, 7909862, 3254156, 8957800, 3545965, 6755427, 9563921, 50914815, 7098299, 8413848 ####[facility] [address] [place] [address] Potassium [Moles/Vol] 4.3 mmol/L Normal 3.5-5.3 [facility] Comment on above: Performed By: #### 2 418970, 3776761, 4324351, 3352834, 7946503, 6994732, 4980067, 59780870, 9113688, 1892861 ####[facility] [address] [place] [address] Protein [Mass/Vol] 6.9 g/dL Normal 6.0-7.8 [facility] Comment on above: Performed By: #### 2 981008, 5264847, 7101411, 7944792, 4926013, 4845443, 4977361, 49405876, 0941905, 6219476 ####[facility] [address] [place] [address] Sodium [Moles/Vol] 131 mmol/L Low 135-145 [facility] Comment on above: Performed By: #### 2 588119, 4999264, 7513380, 8617010, 6245791, 9689716, 2878348, 46282336, 8735580, 6037541 ####[facility] [address] [place] [address] Urea nitrogen [Mass/Vol] 8 mg/dL Normal 5-21 [facility] Comment on above: Performed By: #### 2 828239, 2022774, 3407409, 0492761, 3683638, 5729976, 1323021, 92360217, 8921177, 4097282 ####[facility] [address] [place] [address] Urea nitrogen/Creatinine [Mass ratio] 16 No Units Normal 10-20 [facility] Comment on above: Performed By: #### 2 432530, 8555370, 3402633, 0569571, 1262413, 0867514, 7892732, 14234961, 6170551, 8530123 ####[facility] [address] [place] [address] Carbamazepineon 04-01-2023 carBAMazepine [Mass/Vol] 4.4 microgram/mL Normal 4.0-1 2.0 [facility] Comment on above: Performed By: #### 2 982649, 6294567, 6641661, 0937355, 6395128, 5488753, 6482619, 56826000, 0219626, 9002612 ####[facility] [address] [place] [address] Ferritinon 04-01-2023 Ferritin [Mass/Vol] 39 ng/mL Normal 11-[address] [facility] Comment on above: Result Comment: NORM ALS MEN <30 YRS 16-132 ng/mL MEN >30 YRS 8-338 ng/mL WOMEN (PREMEN) 6-104 ng/mL WOMEN (POSTMEN) 12-210 ng/mL Performed By: #### 2 570897, 4787809, 2366675, 4625019, 8371731, 2904526, 8960758, 98320228, 2264452, 5662110 ####[facility] [address] [place] [address] Free T4on 04-01-2023 Free T4 [Mass/Vol] 0.97 ng/dL Normal 0.58-1.64 [facility] Comment on above: Performed By: #### 2 683425, 6012320, 0508777, 1035507, 0851886, 6760558, 8370994, 11925095, 2605478, 9179360 ####[facility] [address] [place] [address] HEMATOLOGYOrdered By: Graciela Carey on 04-01-2023 Erythrocyte [...] Iron [Mass/Vol] 130 microgram/dL Normal 35-153 [facility] Comment on above: Performed By: #### 2 736400, 8638444, 0856048, 3743826, 1815362, 6223609, 9055549, 20501601, 0837592, 3191643 ####[facility] [address] [place] [address] Physician Orderon 04-01-2023 Physician Order [id number] FF Normal [facility] TSHon 04-01-2023 TSH Qn 0.96 m[IU]/L Normal 0.34-5.60 [facility] Comment on above: Performed By: #### 2 447976, 7793989, 8241527, 4099505, 6690905, 0273655, 7058862, 48375474, 2677180, 5162977 ####[facility] [address] [place] [address] Valproic Acidon 04-01-2023 Valproate [Moles/Vol] 59 microgram/mL Normal 50-99 [facility] Comment on above: Performed By: #### 2 060798, 0229016, 8322655, 3307355, 8685136, 3004205, 7663778, 29812873, 2023196, 4800507 ####[facility] [address] [place] [address] Vit B12on 04-01-2023 Cobalamin (Vitamin B12) [Mass/Vol] 305 pg/mL Normal 50-1500 [facility] Comment on above: Performed By: #### 2 789643, 4216517, 7746710, 4509816, 3916517, 1423105, 4328197, 00847952, 9699179, 8272437 ####[facility] [address] [place] [address] eGFRon 04-01-2023 GFR/1.73 sq M.predicted among non-blacks MDRD (S/P/Bld) [Vol rate/Area] 124 mL/min/1.73 m2 Normal >=59 [facility] Comment on above: Order Comment: Order added by Discern Expert. Result Comment: Meat Trimmer tamara kidney disease could be indicated at eGFR's of less than 60 mL/min/1.73m2. Kidney failure is indicated at less than 15 mL/min/1.73m2. Performed By: #### 2 926709, 5992805, 2873362, 9600837, 6758644, 2350601, 3326275, 61066658, 7880630, 6157409 ####[facility] [address] [place] [address] CHEMISTRYOrdered By: SYSTEM SYSTEM on 01-14-2023 Valproate [Moles/Vol] 82 microgram/mL Normal 50 - 99 mcg/mL [facility] Remisol Physician Orderon 01-14-2023 Physician Order [id number]#[id number]: 127 Normal [facility] Valproic Acidon 01-14-2023 Valproate [Moles/Vol] 82 microgram/mL Normal 50-99 [facility] Comment on above: Performed By: #### 2 340908 ####[facility] [address] [place] [address] XR DEXA BONE DENSITYon 10-01 XR DEXA [...] by: SANDY RAMIREZ Date: 2022-10-01 11:02 Normal [facility] CBC AUTO DIFFon 09-16-2022 BASO # 0.0 103/ul Normal 0.0-0.1 [facility] Comment on above: Performed By: #### C BC #### [facility] [address] [place] [address] Dr. Chong Agarwal Basophils/100 WBC (Bld) 0.3 % Normal 0.2-2.0 [facility] Comment on above: Performed By: #### C BC #### [facility] [address] [place] [address] Dr. Chong Agarwal EO # 0.0 103/ul Normal 0.0-0.7 [facility] Comment on above: Performed By: #### C BC #### [facility] [address] [place] [address] Dr. Chong Agarwal Eosinophils/100 WBC (Bld) 0.4 % Critically low 0.9-7.0 [facility] Comment on above: Performed By: #### C BC #### [facility] [address] [place] [address] Dr. Chong Agarwal Erythrocyte distribution width (RBC) [Ratio] 14.6 % Normal 11.0-15.0 [facility] Comment on above: Performed By: #### C BC #### [facility] [address] [place] [address] Dr. Chong Agarwal Hematocrit (Bld) [Volume fraction] 37.6 % Normal 36.0-48.0 [facility] Comment on above: Performed By: #### C BC #### [facility] [address] [place] [address] Dr. Chong Agarwal Hemoglobin (Bld) [Mass/Vol] 12.2 g/dL Normal 12.0-16.0 [facility] Comment on above: Performed By: #### C BC #### [facility] [address] [place] [address] Dr. Chong Agarwal IG # 0.02 10e3/ul Normal 0.00-0.03 [facility] Comment on above: Performed By: #### C BC #### [facility] [address] [place] [address] Dr. Chong Agarwal IG % 0.3 % Normal 0.0-0.5 [facility] Comment on above: Performed By: #### C BC #### [facility] [address] [place] [address] Dr. Chong Agarwal LYMPH # 2.4 103/ul Normal 1.2-3.8 [facility] Comment on above: Performed By: #### C BC #### [facility] [address] [place] [address] Dr. Chong Agarwal Lymphocytes/100 WBC (Bld) 34.6 % Normal 20.5-60.0 [facility] Comment on above: Performed By: #### C BC #### [facility] [address] [place] [address] Dr. Chong Agarwal MANUAL DIFF REQ NO Normal [facility] Comment on above: Performed By: #### C BC #### [facility] [address] [place] [address] Dr. Chong Agarwal MCH (RBC) [Entitic mass] 31.4 pg Normal 26.7-34.0 [facility] Comment on above: Performed By: #### C BC #### [facility] [address] [place] [address] Dr. Chong Agarwal MCHC (RBC) [Mass/Vol] 32.4 g/dL Normal 29.9-35.2 [facility] Comment on above: Performed By: #### C BC #### [facility] [address] [address] [address] Chong Agarwal MCV (RBC) [Entitic vol] 96.7 fL Normal 81.0-99.0 [facility] Comment on above: Performed By: #### C BC #### [facility] [address] [address] [address] Chong Agarwal MONO # 0.7 103/ul Normal 0.3-0.8 [facility] Comment on above: Performed By: #### C BC #### [facility] [address] [address] [address] Chong Agarwal Monocytes/100 WBC (Bld) 10.2 % Normal 1.7-12.0 [facility] Comment on above: Performed By: #### C BC #### [facility] [address] [address] [address] Chong Agarwal NEUT # 3.8 103/ul Normal 1.4-6.5 [facility] Comment on above: Performed By: #### C BC #### [facility] [address] [address] [address] Chong Agarwal Neutrophils/100 WBC (Bld) 54.2 % Normal 43.0-75.0 [facility] Comment on above: Performed By: #### C BC #### [facility] [address] [address] [address] Chong Agarwal Platelet mean volume (Bld) [Entitic vol] 11.0 fL Normal 9.5-13.5 [facility] Comment on above: Performed By: #### C BC #### [facility] [address] [address] [address] Chong Agarwal PLT 290 103/ul Normal 150-450 [facility] Comment on above: Performed By: #### C BC #### [facility] [address] [address] [address] Chong Agarwal RBC 3.89 106/ul Critically low 4.20-5.40 [facility] Comment on above: Performed By: #### C BC #### [facility] [address] [address] [address] Chong Agarwal WBC 7.0 103/ul Normal 4.0-11.0 [facility] Comment on above: Performed By: #### C BC #### [facility] [address] [address] [address] Chong Agarwal FREE T3on 09-16-2022 FREE T3 2.11 pg/mlL Critically low 2.18-3.98 [facility] Comment on above: Performed By: #### T SH, CMP, LIPID, FT3 #### [facility] [address] [address] [address] Chong Agarwal FREE T4on 09-16-2022 Free T4 [Mass/Vol] 1.25 ng/dL Normal 0.76-1.46 [facility] Comment on above: Performed By: #### F T4, VITB12 #### [facility] [address] [place] [address] Dr. Chong Agarwal LIPID PROFILEon 09-16-2022 CHOL-HDL RATIO NORM SEE BELOW Normal [facility] Comment on above: Result Comment: 3.3 - 4.4 LOW RISK 4.4 - 7.1 AVERAGE RISK 7.1 - 11.0 MODERATE RISK >11.0 HIGH RISK Performed By: #### T SH, CMP, LIPID, FT3 #### [facility] [address] [place] [address] Dr. Chong Agarwal Cholesterol [Mass/Vol] 144 mg/dL Normal <=200 [facility] Comment on above: Performed By: #### T SH, CMP, LIPID, FT3 #### [facility] [address] [place] [address] Dr. Chong Agarwal Cholesterol in HDL [Mass/Vol] 49 mg/dL Normal 40-60 [facility] Comment on above: Performed By: #### T SH, CMP, LIPID, FT3 #### [facility] [address] [place] [address] Dr. Chong Agarwal Cholesterol in LDL [Mass/Vol] 78.0 mg/dL Normal [facility] Comment on above: Performed By: #### T SH, CMP, LIPID, FT3 #### [facility] [address] [address] [address] Chong Agarwal Cholesterol.total/Choles terol in HDL [Mass ratio] 2.9 {ratio} Normal [facility] Comment on above: Performed By: #### T SH, CMP, LIPID, FT3 #### [facility] [address] [address] [address] Chong Agarwal HDL NORMAL > or = 60 mg/dl - LO W CARDIOVASCULAR RISK <40 mg/dl - HIGH CARDIOVASCULAR RISK Normal [facility] Comment on above: Performed By: #### T SH, CMP, LIPID, FT3 #### [facility] [address] [address] [address] Chong Agarwal LDL CALC NORMAL SEE BELOW Normal [facility] Comment on above: Result Comment: <100 mg/dl OPTIMAL 100 - 129 mg/dl NEAR OR ABOVE OPTIMAL 130 - 159 mg/dl BORDERLINE HIGH 160 - 189 mg/dl HIGH >190 mg/dl VERY HIGH Performed By: #### T SH, CMP, LIPID, FT3 #### [facility] [address] [address] [address] Chong Agarwal Triglyceride [Mass/Vol] 85 mg/dL Normal <=150 T [facility] Comment on above: Performed By: #### T SH, CMP, LIPID, FT3 #### [facility] [address] [address] [address] Chong Agarwal VLDL CALC 17.0 mg/dL Normal [facility] Comment on above: Performed By: #### T SH, CMP, LIPID, FT3 #### [facility] [address] [address] [address] Chong Agarwal PROF 14(COMP METB)on 023 Albumin [Mass/Vol] 3.5 g/dL Normal 3.4-5.0 [facility] Comment on above: Performed By: #### T SH, CMP, LIPID, FT3 #### [facility] [address] [address] [address] Chong Agarwal Albumin/Globulin [Mass ratio] 0.9 {ratio} Normal [facility] Comment on above: Performed By: #### T SH, CMP, LIPID, FT3 #### [facility] [address] [place] [address] Dr. Chong Agarwal ALP [Catalytic activity/Vol] 31 U/L Critically low 46-116 [facility] Comment on above: Performed By: #### T SH, CMP, LIPID, FT3 #### [facility] [address] [place] [address] Dr. Chong Agarwal ALT [Catalytic activity/Vol] 34 U/L Normal 14-59 [facility] [facility] Comment on above: Performed By: #### T SH, CMP, LIPID, FT3 #### [facility] [address] [place] [address] Dr. Chong Agarwal Anion gap [Moles/Vol] 8.3 mmol/L Normal [facility] Comment on above: Performed By: #### T SH, CMP, LIPID, FT3 #### [facility] [address] [place] [address] Dr. Chong Agarwal AST [Catalytic activity/Vol] 22 U/L Normal 15-37 [facility] Comment on above: Performed By: #### T SH, CMP, LIPID, FT3 #### [facility] [address] [place] [address] Dr. Chong Agarwal Bilirubin [Mass/Vol] 0.2 mg/dL Normal 0.2-1.0 [facility] Comment on above: Performed By: #### T SH, CMP, LIPID, FT3 #### [facility] [address] [place] [address] Dr. Chong Agarwal Calcium [Mass/Vol] 9.0 mg/dL Normal 8.5-10.1 [facility] Comment on above: Performed By: #### T SH, CMP, LIPID, FT3 #### [facility] [address] [place] [address] Dr. Chong Agarwal Chloride [Moles/Vol] 101 mmol/L Normal 98-107 [facility] Comment on above: Performed By: #### T SH, CMP, LIPID, FT3 #### [facility] [address] [address] [address] Chong Agarwal CO2 [Moles/Vol] 30.0 mmol/L Normal 21.0-32.0 [facility] Comment on above: Performed By: #### T SH, CMP, LIPID, FT3 #### [facility] [address] [address] [address] Chong Agarwal Creatinine [Mass/Vol] 0.54 mg/dL Critically low 0.55-1.02 [facility] Comment on above: Performed By: #### T SH, CMP, LIPID, FT3 #### [facility] [address] [address] [address] Chong Agarwal EGFR-AF BURMESE >60 Normal >=60 [facility] Comment on above: Performed By: #### T SH, CMP, LIPID, FT3 #### [facility] [address] [address] [address] Chong Agarwal EGFR-NON AF BURMESE >60 Normal >=60 [facility] Comment on above: Performed By: #### T SH, CMP, LIPID, FT3 #### [facility] [address] [address] [address] Chong Agarwal Globulin (S) [Mass/Vol] 3.9 g/dL Normal [facility] Comment on above: Performed By: #### T SH, CMP, LIPID, FT3 #### [facility] [address] [address] [address] Chong Agarwal Glucose [Mass/Vol] 95 mg/dL Normal 74-106 [facility] Comment on above: Performed By: #### T SH, CMP, LIPID, FT3 #### [facility] [address] [address] [address] Chong Agarwal Potassium [Moles/Vol] 4.3 mmol/L Normal 3.5-5.1 [facility] Comment on above: Performed By: #### T SH, CMP, LIPID, FT3 #### [facility] [address] [address] [address] Chong Agarwal Protein [Mass/Vol] 7.4 g/dL Normal 6.4-8.2 [facility] Comment on above: Performed By: #### T SH, CMP, LIPID, FT3 #### [facility] [address] [place] [address] Dr. Chong Agarwal Sodium [Moles/Vol] 135 mmol/L Critically low 136-145 [facility] Comment on above: Performed By: #### T SH, CMP, LIPID, FT3 #### [facility] [address] [place] [address] Dr. Chong Agarwal Urea nitrogen [Mass/Vol] 12.0 mg/dL Normal 7.0-18.0 [facility] Comment on above: Performed By: #### T SH, CMP, LIPID, FT3 #### [facility] [address] [place] [address] Dr. Chong Agarwal Urea nitrogen/Creatinine [Mass ratio] 22.2 mg/mg Normal [facility] Comment on above: Performed By: #### T SH, CMP, LIPID, FT3 #### [facility] [address] [place] [address] Dr. Chong Agarwal TSHon 09-16-2022 TSH 0.986 uIU/mL Normal 0.358-3.74 0 [facility] Comment on above: Performed By: #### T SH, CMP, LIPID, FT3 #### [facility] [address] [place] [address] Dr. Chong Agarwal VITAMIN B12on 09-16-2022 Cobalamin (Vitamin B12) [Mass/Vol] 581.0 pg/mL Normal 193.0-986. 0 [facility] Comment on above: Performed By: #### F T4, VITB12 #### [facility] [address] [place] [address] Dr. Chong Agarwal CULTURE WOUNDon 08-22-2022 CULTURE [...] Trimethoprim/Sulfamethox azole <=10 S F Normal [facility] Comment on above: Performed By: #### W OUNDCX #### [facility] [address] [place] [address] Dr. Chong Agarwal DEPAKENE/ VALPROIC ACIDon DEPAKENE 92.4 ug/ml Normal 50.0-100.0 [facility] Comment on above: Performed By: #### V ALP #### [facility] [address] [place] [address] Dr. Chong Agarawl Vital Signs Date Time Vital Sign Value Performing Clinician Facility 01-08-2024 16:00-0400 Diastolic blood pressure 26 mm[Hg] Stacie Torres DMD Work Phone: [facility] 01-08-2024 16:00-0400 Heart rate 84 /min Stacie Torres DMD Work Phone: [facility] 01-08-2024 16:00-0400 Respiratory rate 22 /min Stacie Torres DMD Work Phone: [facility] 01-08-2024 16:00-0400 SaO2% (BldA) [Mass fraction] 96 % Stacie Torres DMD Work Phone: [facility] 01-08-2024 16:00-0400 Systolic blood pressure 94 mm[Hg] Stacie Torres DMD Work Phone: [employer] 01-08-2024 15:56-0400 Body temperature 98.1 [degF] Stacie Torres DMD Work Phone: [employer] 01-08-2024 11:04-0400 Body height 147.3 cm Stacie Torres DMD Work Phone: [employer] 01-08-2024 11:04-0400 Body mass index (BMI) [Ratio] 31.98 kg/m2 Stacie Torres DMD Work Phone: [employer] 01-08-2024 11:04-0400 Body weight 69.4 kg Stacie Torres DMD Work Phone: [employer] 12-28-2023 20:36-0400 Heart rate 75 /min Víctor Earl CRUDE TESTER-DELIVERY CLERK Work Phone: [employer] 12-25-2023 10:34-0400 Body height 147.3 cm Víctor Earl CRUDE TESTER-DELIVERY CLERK Work Phone: [employer] 12-25-2023 10:34-0400 Body mass index (BMI) [Ratio] 31.98 kg/m2 Justensamia Earl CRUDE TESTER-DELIVERY CLERK Work Phone: [employer] 12-25-2023 10:34-0400 Body temperature 98.91 [degF] Víctor Goldberg CRUDE TESTER-DELIVERY CLERK Work Phone: [employer] 12-25-2023 10:34-0400 Body weight 69.4 kg Víctor Goldberg CRUDE TESTER-DELIVERY CLERK Work Phone: [employer] 12-25-2023 10:34-0400 Diastolic blood pressure 61 mm[Hg] Edward Zienkowski CRUDE TESTER-DELIVERY CLERK Work Phone: [facility] 12-25-2023 10:34-0400 Heart rate 86 /min Víctor Goldberg CRUDE TESTER-DELIVERY CLERK Work Phone: [facility] 12-25-2023 10:34-0400 Respiratory rate 16 /min Víctor Goldberg CRUDE TESTER-DELIVERY CLERK Work Phone: [facility] 12-25-2023 10:34-0400 SaO2% (BldA) [Mass fraction] 99 % Víctor Goldberg CRUDE TESTER-DELIVERY CLERK Work Phone: [facility] 12-25-2023 10:34-0400 Systolic blood pressure 94 mm[Hg] Víctor Goldberg CRUDE TESTER-DELIVERY CLERK Work Phone: [facility] 09-16-2023 09:00-0400 Diastolic blood pressure 61 mm[Hg] Mohamad Mouchli [facility] 09-16-2023 09:00-0400 Heart rate 70 /min Mohamad Mouchli [facility] 09-16-2023 09:00-0400 Mean blood pressure 74 mm[Hg] Mohamad Mouchli [facility] 09-16-2023 09:00-0400 Systolic blood pressure 99 mm[Hg] Mohamad Mouchli [facility] 09-16-2023 08:50-0400 Blood Pressure Location Mohamad Mouchli [facility] 09-16-2023 08:50-0400 Diastolic blood pressure 68 mm[Hg] Mohamad Mouchli [facility] 09-16-2023 08:50-0400 Heart rate 72 /min Mohamad Mouchli [facility] 09-16-2023 08:50-0400 Mean blood pressure 79 mm[Hg] Mohamad Mouchli [facility] 09-16-2023 08:50-0400 Respiratory rate 12 /min Mohamad Mouchli [facility] 09-16-2023 08:50-0400 SaO2% (BldA) [Mass fraction] 96 % Mohamad Mouchli [facility] 09-16-2023 08:50-0400 Systolic blood pressure 100 mm[Hg] Mohamad Mouchli [facility] 09-16-2023 08:45-0400 Diastolic blood pressure 83 mm[Hg] Mohamad Mouchli [facility] 09-16-2023 08:45-0400 Heart rate 86 /min Mohamad Mouchli [facility] 09-16-2023 08:45-0400 Mean blood pressure 88 mm[Hg] Mohamad Mouchli [facility] 09-16-2023 08:45-0400 Respiratory rate 17 /min Mohamad Mouchli [facility] 09-16-2023 08:45-0400 SaO2% (BldA) [Mass fraction] 97 % Mohamad Mouchli [facility] 09-16-2023 08:45-0400 Systolic blood pressure 98 mm[Hg] Mohamad Mouchli [facility] 09-16-2023 08:35-0400 Body temperature 98.06 [degF] Mohamad Mouchli [facility] 09-16-2023 07:39-0400 Body temperature 98.06 [degF] Mohamad Mouchli [facility] 09-10-2023 09:10-0400 Blood Pressure Location Learn[employer] delia Melendezli [facility] 09-10-2023 09:10-0400 Diastolic blood pressure 67 mm[Hg] Gersond Mouchli [facility] 09-10-2023 09:10-0400 Heart rate 91 /min Jessee Melendezli [facility] 09-10-2023 09:10-0400 Respiratory rate 16 /min [employer] Kimchid Rejiuchli [facility] 09-10-2023 09:10-0400 Systolic blood pressure 113 mm[Hg] Jessee Melendezli [facility] Encounters Encounter Date Encounter Type Care Provider Facility Start: 01-11-2024 End: 01-11-2024 Telephone encounter Stacie Torres DMD Work Phone: [facility] Comment on above: Referral needs place d for OS Start: 01-08-2024 End: 01-08-2024 Patient encounter procedure Stacie Torres DMD Work Phone: [facility] Comment on above: Arrived Start: 01-08-2024 End: 01-08-2024 ambulatory UNKNOWN PROVIDER Facility:[facility] Start: 01-08-2024 End: 01-08-2024 Subsequent hospital visit by physician Stacie Torres DMD Work Phone: [facility] Start: 01-08-2024 ambulatory UNKNOWN PROVIDER Facili ty:[facility] Start: 01-06-2024 End: 01-06-2024 Telephone encounter Bronwyn Pradhan RN [facility] Pre-Admission Testing Comment on above: Pre-surgical Evaluat ion (DD adult dental restorations 01/07 under [facility] at [place]. PAT completed - consents obtained. MARY RN spoke to Cassidy, confirmed NPO except water only until 0900 (Cassidy stated pt does not like and will not drink water), [place] address, and 1100 arrival time/) Start: 01-05-2024 End: 01-05-2024 ambulatory POONAM TALBERT Not Available Start: 12-28-2023 End: 12-28-2023 Telephone encounter Susie Dumont RN [facility] Pre-Admission [facility] Start: 12-25-2023 End: 12-28-2023 Patient encounter procedure Justensamia Earl CRUDE TESTER-DELIVERY CLERK [facility] [place] [facility] Comment on above: Preop testing (Prima ry Dx); Body mass index (BMI) 31.0-31.9, adult Preop testing (Prima ry Dx); Body mass index (BMI) 31.0-31.9, adult; Abnormal electrocardiogram (ECG) (EKG); Abnormal electrocardiogram (ECG) (EKG) Start: 12-25-2023 End: 12-28-2023 Patient encounter status Víctor Goldberg CRUDE TESTER-DELIVERY CLERK Work Phone: [employer] Work Phone: Start: 12-25-2023 End: 12-28-2023 ambulatory VÍCTOR GOLDBERG Facility:[facility] Start: 12-25-2023 Encounter for other preprocedural examination VÍCTOR GOLDBERG [facility] Start: 09-23-2023 End: 09-24-2023 ambulatory Jessee Nina Facility:[facility] Start: 09-23-2023 End: 09-23-2023 Patient encounter procedure Jessee Nina [facility] Start: 09-16-2023 End: 09-17-2023 ambulatory Jessee Nina Facility:[facility] Start: 09-16-2023 End: 09-16-2023 Patient encounter procedure Jessee Nina [facility] Start: 09-10-2023 End: 09-11-2023 ambulatory Jessee Nina Facility:[facility] Start: 09-10-2023 End: 09-10-2023 Patient encounter procedure Jessee Nina [facility] Start: 09-09-2023 ambulatory Jessee Nina Facilit y:[facility] Start: 04-01-2023 End: 04-02-2023 ambulatory BALJIT PINEDO Facility:[facility] Start: 04-01-2023 End: 04-01-2023 Lab Drop off BALJIT PINEDO [facility] Start: 01-14-2023 End: 01-15-2023 ambulatory BALJIT PINEDO Facility:[facility] Start: 01-14-2023 End: 01-14-2023 Lab Drop off BALJIT PINEDO [facility] Start: 10-01-[address] BALJIT PINEDO Fac ility:[facility] Start: 09-16-2022 End: 09-17-[address] BALJIT PINEDO Facility:[facility] Start: 08-19-2022 End: 08-19-[address] BALJIT PINEDO Facility:[facility] Start: 07-22-2022 End: 07-25-2022 Patient encounter procedure Kary Ku DDS Work Phone: [facility] Start: 06-08-2022 Letter encounter Rm Goldman DDS Work Phone: [facility] Start: 04-29-2022 End: 04-30-[address] BALJIT PINEDO Facility:[facility] Procedures Date Procedure Procedure Detail Performing Clinician Start: 01-08-2024 Gonadotropin chorionic quantitative Kim lorie Shin MD Work Phone: Start: 12-25-2023 Blood count complete automated Víctor brock CRUDE TESTER-DELIVERY CLERK Work Phone: Start: 12-25-2023 Ecg routine ecg [...] Routine scheduled Caries 01/08/2024 2:10 PM [facility] Start: 01-08-2024 End: 01-08-2024 Admission to same day surgery center 01/08/2024 11:28 AM EDT - 01/08/2024 1:23 PM EDT Surgery [facility] [address] [place] [address] Stacie Torres DMD [address] [place], [place] [id number] [facility] Comment on above: [facility] Start: 01-08-2024 End: 01-08-2024 DENTAL RESTORATIONS D[facility] Routine scheduled Caries 01/08/2024 11:28 AM EDT [facility] Start: 01-08-2024 Subsequent hospital visit by physician 01/08/2024 11:28 AM EDT Hospital Encounter [facility] [address] [place], [place] [id number] Stacie Torres DMD [address] [place] [address] [facility] Start: 01-08-2024 End: 01-08-2024 Patient encounter procedure 01/08/2024 11:00 AM EDT Procedure Visit [facility] [address] [place] [address] Stacie Torres DMD [address] [place] [address] [facility] Start: 01-08-2024 End: 01-08-2024 Admission to same day surgery center 01/08/2024 7:20 AM EDT - 01/08/2024 9:15 AM EDT Surgery [facility] [address] [place] [id number] Stacie Torres DMD [address] [place] [address] DENTAL [facility]ATIONS [facility] Comment on above: [facility] Start: 01-08-2024 End: 01-08-2024 DENTAL RESTORATIONS DENTAL RESTORATIONS Routine scheduled Caries 01/08/2024 7:20 AM EDT [facility] Start: 01-08-2024 Subsequent hospital visit by physician 01/08/2024 7:20 AM EDT Hospital Encounter [facility] [address] [place] [address] Stacie Torres DMD [address] [place] [address] [facility] Start: 01-16-2023 COVID-19 Vaccine ( season) COVID-19 Vaccine ( season) [facility] Start: 08-31-2022 Tetanus vaccination Tetanus (T d or Tdap) Booster [facility] Start: 07-22-2022 End: 07-22-2022 Patient encounter procedure 07/22/2022 Procedure Visit Dentistry Diana Horan, [facility] [address] [place] [address] [facility] Start: 02-15-2022 Influenza vaccination Influenza Vacc ine (#1) [facility] Start: 2012 HPV Vaccine (optiona l start 27-45 years) HPV Vaccine (optional start 27-45 years) [facility] Start: 2006 Screening for malign ant neoplasm of cervix [facility] Start: 2004 Hepatitis A (HAV) Vaccine (optional start 19+ years) Hepatitis A (HAV) Vaccine (optional start 19+ years) [facility] Start: 2004 Hepatitis B vaccination Hepati tis B (HBV) Vaccine (1 of 3 - 19+ 3-dose series) [facility] Start: 2003 Hepatitis C screening Hepatitis C An tibody [facility] Start: 2000 HIV screening HIV Test [facility] Start: 1985 Screening for malign ant neoplasm of breast [facility] Ecg routine ecg w/le ast 12 lds trcg only w/o i&r EKG 12 LEAD - PERFORM MUSE Routine Preop testing Ordered: 12/25/2023 [facility] Work Phone: Comment on above: Ordered: 12/25/2023 End: 01-08-2024 Urine test visual color cmprsn meths URINE HCG-IN OFFICE Lab Routine One time for 1 Occurrences starting 01/08/2024 until 01/08/2024 [facility] Work Phone: Comment on above: One time for 1 Occur rences starting 01/08/2024 until 01/08/2024 Immunizations Immunization Date Immunization Notes Care Provider Destini fulton 03-04-2023 influenza virus vacc ine, unspecified formulation [id number] filmscarmelo Nina [facility] 08-14-2022 SARS-CoV-2 (COVID-19 ) [id number] LearnBIGalma delia Nina [facility] 08-14-2022 tetanus toxoid, redu penelope diphtheria toxoid, and acellular pertussis vaccine, adsorbed [employer] Kimchicarmelo Nina [facility] 03-05-2022 influenza virus vacc ine, unspecified formulation Rosette3225 filmscarmelo Nina [facility] 03-05-2022 SARS-CoV-2 (COVID-19 ) [id number] Jessee Nina [facility] Comment on above: Result Comment: 2023: TPVALL 03-13-2021 influenza, injectabl e, quadrivalent, preservative free Rm Goldman [employer] [facility] 03-13-2021 SARS-CoV-2 (COVID-19 ) mRNA BNT-[id number] vax Jessee Nina [facility] Comment on above: Result Comment: 2023: TPV3 03-13-2021 influenza virus vacc ine, unspecified formulation Rm Goldman [employer] Work Phone: [facility] 06-19-2020 Pfizer (12+ yrs) SARS-COV-2 (COVID-19) vaccine, mRNA, spike protein, LNP, pres. free, 30 mcg/0.3mL dose ([id number]) Rm Goldman [employer] Work Phone: [facility] Comment on above: Result Comment: 2023: TPVAL 05-29-2020 Pfizer (12+ yrs) SARS-COV-2 (COVID-19) vaccine, mRNA, spike protein, LNP, pres. free, 30 mcg/0.3mL dose ([id number]) Rm Goldman [employer] Work Phone: [facility] Comment on above: Result Comment: 2023: TPVAL 02-22-2020 influenza virus vacc ine, unspecified formulation Jessee Nina [facility] 02-22-2020 influenza, injectabl e, quadrivalent, preservative free Rm Goldman [employer] [facility] 03-11-2019 influenza virus vacc ine, unspecified formulation Mohamad Mouchli [facility] 03-11-2019 influenza, injectabl e, quadrivalent, preservative free Rm Susi DDS Work Phone: [facility] 02-24-2018 influenza virus vacc ine, unspecified formulation Mohamad Mouchli [facility] 02-24-2018 influenza, injectabl e, quadrivalent, preservative free Rm Susi DDS Work Phone: [facility] 03-11-2017 influenza virus vacc ine, unspecified formulation Mohamad Mouchli [facility] 03-11-2017 influenza, injectabl e, quadrivalent, contains preservative Rm Susi DDS Work Phone: [facility] 02-20-2016 influenza virus vacc ine, unspecified formulation Mohamad Mouchli [facility] 02-20-2016 influenza, seasonal, injectable Rm Susi DDS Work Phone: [facility] 03-08-2015 influenza virus vacc ine, unspecified formulation Mohamad Mouchli [facility] 03-08-2015 influenza, injectabl e, quadrivalent, preservative free Rm Susi DDS Work Phone: [facility] 03-23-2014 influenza virus vacc ine, unspecified formulation Mohamad Mouchli [facility] 03-23-2014 influenza, injectabl e, quadrivalent, preservative free Rm Susi DDS Work Phone: [facility] 03-15-2013 influenza virus vacc ine, unspecified formulation Mohamad Mouchli [facility] 03-15-2013 influenza, seasonal, injectable Rm Susi DDS Work Phone: [facility] 08-31-2012 tetanus toxoid, redu penelope diphtheria toxoid, and acellular pertussis vaccine, adsorbed Rm Goldman DDS Work Phone: [facility] 03-10-2012 influenza virus vacc ine, unspecified formulation Mohamad Mouchli [facility] 03-10-2012 influenza, seasonal, injectable Rm Goldman DDS Work Phone: [facility] 01-29-2011 influenza virus vacc ine, unspecified formulation Mohamad Mouchli [facility] 01-29-2011 influenza, seasonal, injectable Rm Goldman DDS Work Phone: [facility] 03-13-2010 influenza virus vacc ine, whole virus Rm Goldman DDS Work Phone: [facility] 03-13-2010 influenza, whole Mohamad Erica chli [facility] 04-04-2009 novel influenza-H1N1 -09, preservative-free, injectable Rm Goldman DDS Work Phone: [facility] 03-09-2008 influenza virus vacc ine, whole virus Rm Goldman DDS Work Phone: [facility] 03-09-2008 influenza, whole Mohamad Erica chli [facility] 10-01-2006 meningococcal ACWY vaccine, unspecified formulation Mohemanueld Mouchli [facility] 10-01-2006 meningococcal polysaccharide (groups A, C, Y and W-135) diphtheria toxoid conjugate vaccine (MCV4P) Rm Goldman DDS Work Phone: [facility] 09-02-2000 TD(adult) unspecifie d formulation; Translations: [Td(adult) unspecified formulation] Rm Goldman DDS Work Phone: [facility] 07-29-1990 diphtheria, tetanus toxoids and pertussis vaccine Rm Goldman DDS Work Phone: [facility] 07-29-1990 trivalent poliovirus vaccine, live, oral Rm Goldman DDS Work Phone: [facility] 11-03-1987 trivalent poliovirus vaccine, live, oral Rm Goldman DDS Work Phone: [facility] 07-02-1987 haemophilus influenz ae type b vaccine, conjugate unspecified formulation Rm Goldman DDS Work Phone: [facility] 07-02-1987 Hib, unspecified formulation Rosetteemanuelcarmelo Melendezli [facility] 05-29-1987 diphtheria, tetanus toxoids and pertussis vaccine Rm Goldman DDS Work Phone: [facility] 05-29-1987 trivalent poliovirus vaccine, live, oral Rm Goldman DDS Work Phone: [facility] 11-15-1986 measles, mumps and rubella virus vaccine Rm Goldman DDS Work Phone: [facility] 06-28-1986 trivalent poliovirus vaccine, live, oral Rm Goldman DDS Work Phone: [facility] 1985 diphtheria, tetanus toxoids and pertussis vaccine Rm Goldman DDS Work Phone: [facility] 1985 diphtheria, tetanus toxoids and pertussis vaccine Rm Goldman DDS Work Phone: [facility] 1985 trivalent poliovirus vaccine, live, oral Rm Goldman DDS Work Phone: [facility] 1985 diphtheria, tetanus toxoids and pertussis vaccine Rm Goldman DDS Work Phone: [facility] Payers Date Payer Category Payer Medicaid [id number] 1985 Unknown [id number] 1985 Unknown [id number] 1985 Unknown [id number] 1985 Unknown [id number] 1985 Unknown [id number] 2.16.8 [id number] 1985 Unknown [id number] 2.16.8 [id number] 1985 Unknown [id number] 2.16.84 [id number] 1985 Unknown [id number] 2.16. [id number] 1985 Unknown [id number] 2.16. [id number] 1985 Unknown [id number] 2.16. [id number] 1959 Medicaid [id number] Unknown [id number] 2.16.84 [id number] Unknown [id number] 2.16.84 [id number] Unknown [id number] 2.16.84 [id number] Unknown [id number] 2.16.84 [id number] Social History Date Type Detail Facility Start: 02-03-2019 End: 09-10-2023 Tobacco smoking status [facility] Never smoked tobacco [facility] Start: 02-03-2019 Tobacco use and exposure Smokeless tobacco non-user [facility] Start: 11-06-2020 End: 01-11-2024 Alcohol intake Ex-drinker (finding) [facility] Start: 1985 [facility] Tobacco smoking status No Smoking Status Entered [facility] Start: 12-25-2023 Sex Assigned At Female F [facility] Tobacco smoking status Never [facility] Start: 12-25-2023 History of Social function [facility] Functional Status Date Assessment Result Facility 09-16-2023 Functional Status N/A [facility] 09-10-2023 Functional Status N/A [facility] Clinical Notes 07-14-2020 to 01-11-2024 [...] referral for oral surgery. Message sent to [facility] Kary on January 13 2024 board. Message placed on board 01/11/24 @ 1152 am [facility] 01-11-2024 Miscellaneous Notes pt was seen in OR 01/08/24 , Stacie Montalvo DMD recommended that the pt be seen by [facility] fro care & follow up. in progess notes it states Referral placed to [facility] but NO referral can be found in pt's chart. please place referral for oral surgery. Message sent to [facility] Kary on January 13 2024 board. Message placed on board 01/11/24 @ 1152 am documented in this encounter [facility] 01-08-2024 History of Present illness Narrative 1605 Discharge instructions reviewed, caregiver states pt on mouth was at home therefore does not wish to wait for prescription documented in this encounter [facility] 01-08-2024 Hospital Discharge instructions Divine Simon RN - 01/08/2024 3:48 PM EDT Images from the original note were not included. Dental abscess The Basics Written by the doctors and editors at [facility] What is a dental abscess? -- [...] do anything to prevent another dental abscess? Lavon your teeth at least 2 times a [...] process is complete. This topic retrieved from [employer] on: Jul 29, 2023. Topic 262109 Version 1.0 Release: 32.2.4 - C32.71 2023 [employer]. and/or its affiliates. All rights reserved. figure 1: Dental abscess Adental abscess is a collection of pus from an infection in the mouth. Dentalabscesses can form in the gums, next to a tooth, or in the root of a tooth. Graphic 950850 Version 1.0 Consumer Information Use and Disclaimer [...] or approved for treating a specific patient. [employer] and its affiliates disclaim any warranty or liability relating to this information or the use thereof.The use of this information is governed by the Terms of Use, available at [email or web address] n/know/nibpzryi-ashcxuglreuhm-q erms. 2023 [employer] and its affiliates and/or licensors. All rights reserved. Copyright 2023 [employer] and/or its affiliates. All rights reserved. PERIOPERATIVE DISCHARGE/HOME-GOING INSTRUCTIONS ANESTHESIA - GENERAL (ADULT) If a problem arises, you may contact your physician by calling [phone] and asking for the resident medication administration professional for Dental service. Special Care Needs: Activity: [...] very uncomfortable and can t urinate, call [phone] or come to the emergency room. The day after surgery, a nurse will call to check on you. However, if there are any questions or concerns, please call us at the number listed in the home going instructions. documented in this encounter [facility] 01-08-2024 History and physical note Surgical Attestation: [...] Chandler Rojas KASSIDY Marin 01/08/2024 1:47 PM [facility] 01-08-2024 Note Surgical Attestation : I have [...] Yomarysol Marin DDS 01/08/2024 1:47 PM [facility] 01-08-2024 History and physical note Surgical [...] 01/08/2024 1:47 PM documented in this encounter [facility] 01-08-2024 Miscellaneous Notes Brief Operative Note PHE OR 3 Vee Sarabia 38 year old female Surgical Contact Serial Number: [id number] Preoperative Diagnosis: ADHD (attention deficit hyperactivity disorder) ([facility]) 10/08/2007 Anorexia 03/16/2008 Cerebral palsy ([facility]) 10/08/2007 Late effect of adverse effect of drug, medical or biological substance 05/02/2009 Mental impairment ([facility]) 10/08/2007 Mental retardation Other bipolar disorder ([facility]) 10/08/2007 Other conduct disorders ([facility]) 10/08/2007 Seizure disorder ([facility]) 10/08/2007 Postoperative Diagnosis: ADHD (attention deficit hyperactivity disorder) ([facility]) 10/08/2007 Anorexia 03/16/2008 Cerebral palsy ([facility]) 10/08/2007 Late effect of adverse effect of drug, medical or biological substance 05/02/2009 Mental impairment ([facility]) 10/08/2007 Mental retardation Other bipolar disorder ([facility]) 10/08/2007 Other conduct disorders ([facility]) 10/08/2007 Seizure disorder ([facility]) 10/08/2007 Procedures: Full mouth X-ray [57722] Full mouth cleaning [71805] Restorations [03383] Surgeon(s): Surgeon(s): Stacie Torres DMD Yoris, Orlando, DDS Staff: Gardener Florist Nurse: Gabriel Hinkle Terminal Gauger Supervisor: Chandler Parham DDS Anesthesia: General Anesthesiologist: Justin [...] year old female Surgical Contact Serial Number: [id number] Preoperative Diagnosis: ADHD (attention deficit hyperactivity disorder) ([facility]) 10/08/2007 Anorexia 03/16/2008 Cerebral palsy ([facility]) 10/08/2007 Late effect of adverse effect of drug, medical or biological substance 05/02/2009 Mental impairment ([facility]) 10/08/2007 Mental retardation Other bipolar disorder ([facility]) 10/08/2007 Other conduct disorders ([facility]) 10/08/2007 Seizure disorder ([facility]) 10/08/2007 Postoperative Diagnosis: ADHD (attention deficit hyperactivity disorder) ([facility]) 10/08/2007 Anorexia 03/16/2008 Cerebral palsy ([facility]) 10/08/2007 Late effect of adverse effect of drug, medical or biological substance 05/02/2009 Mental impairment ([facility]) 10/08/2007 Mental retardation Other bipolar disorder ([facility]) 10/08/2007 Other conduct disorders ([facility]) 10/08/2007 Seizure disorder ([facility]) 10/08/2007 Surgeon: Stacie Torres DMD Police Captain Surgeon: Chandler Marin DDS Anesthesia: General- Nasal [...] were discussed with the patient and/or legal community relations representative. The risks, benefits and alternatives were reviewed. Questions regarding blood transfusions were answered. The patient /or the patient s legal community relations representative agree with the plan for transfusion of blood and/or blood components. documented in this encounter [facility] 01-08-2024 Surgery Postoperative evaluation and management note Brief Operative Note PHE OR 3 Vee Sarabia 38 year old female Surgical Contact Serial Number: [id number] Preoperative Diagnosis: ADHD (attention deficit hyperactivity disorder) ([facility]) 10/08/2007 Anorexia 03/16/2008 Cerebral palsy ([facility]) 10/08/2007 Late effect of adverse effect of drug, medical or biological substance 05/02/2009 Mental impairment ([facility]) 10/08/2007 Mental retardation Other bipolar disorder ([facility]) 10/08/2007 Other conduct disorders ([facility]) 10/08/2007 Seizure disorder ([facility]) 10/08/2007 Postoperative Diagnosis: ADHD (attention deficit hyperactivity disorder) ([facility]) 10/08/2007 Anorexia 03/16/2008 Cerebral palsy ([facility]) 10/08/2007 Late effect of adverse effect of drug, medical or biological substance 05/02/2009 Mental impairment ([facility]) 10/08/2007 Mental retardation Other bipolar disorder ([facility]) 10/08/2007 Other conduct disorders ([facility]) 10/08/2007 Seizure disorder ([facility]) 10/08/2007 Procedures: Full mouth X-ray [47825] Full mouth cleaning [91382] Restorations [00167] Surgeon(s): Surgeon(s): Stacie Torres DMD Yoris, Orlando, DDS Staff: Gardener Florist Nurse: Gabriel Hinkle Terminal Gauger Supervisor: Chandler Parham DDS Anesthesia: General Anesthesiologist: Justin [...] by Chandler Marin DDS 01/08/2024 1:48 PM [facility] 01-08-2024 Surgery Surgical operation note Operative Note PHE OR 3 Vee Sarabia 38 year old female Surgical Contact Serial Number: [id number] Preoperative Diagnosis: ADHD (attention deficit hyperactivity disorder) ([facility]) 10/08/2007 Anorexia 03/16/2008 Cerebral palsy ([facility]) 10/08/2007 Late effect of adverse effect of drug, medical or biological substance 05/02/2009 Mental impairment ([facility]) 10/08/2007 Mental retardation Other bipolar disorder ([facility]) 10/08/2007 Other conduct disorders ([facility]) 10/08/2007 Seizure disorder ([facility]) 10/08/2007 Postoperative Diagnosis: ADHD (attention deficit hyperactivity disorder) ([facility]) 10/08/2007 Anorexia 03/16/2008 Cerebral palsy ([facility]) 10/08/2007 Late effect of adverse effect of drug, medical or biological substance 05/02/2009 Mental impairment ([facility]) 10/08/2007 Mental retardation Other bipolar disorder ([facility]) 10/08/2007 Other conduct disorders ([facility]) 10/08/2007 Seizure disorder ([facility]) 10/08/2007 Surgeon: Stacie Torres DMD Police Captain Surgeon: Chandler Marin DDS Anesthesia: General- Nasal [...] procedure. Chandler Marin DDS 01/08/2024 1:53 PM [employer] Work Phone: 01-08-2024 Progress note Formatting of t his note is different from the original. Blood Attestation: ATTESTATION OF INFORMED CONSENT FOR BLOOD: The transfusion of blood and/or blood components were discussed with the patient and/or legal community relations representative. The risks, benefits and alternatives were reviewed. Questions regarding blood transfusions were answered. The patient /or the patient s legal community relations representative agree with the plan for transfusion of blood and/or blood components. [employer] Work Phone: 01-08-2024 History of Present illness Narrative ----- Monday, January 08, 2024 at 3:45:54 PM ----- ----- Provider: Jarrett Torres DMD -- Clinic: [facility] ----- Pt was seen in OR under general anesthesia. comp exam, FMX and 4 quads SRP completed. Topical fluoride applied. #8 MIDLF broken tooth restored with composite. #12,13,14 present with non- restorable cervical lesions interproximally. Due to pt. jail Fosamax usage, recommend this patient be seen by [facility] for care and follow ups. Referral placed to [facility] See note attached. Operative Note PHE OR 3 Vee Sarabia 38 year old female Surgical Contact Serial Number: [id number] Preoperative Diagnosis: ADHD (attention deficit hyperactivity disorder) ([facility]) 10/08/2007 Anorexia 03/16/2008 Cerebral palsy ([facility]) 10/08/2007 Late effect of adverse effect of drug, medical or biological substance 05/02/2009 Mental impairment ([facility]) 10/08/2007 Mental retardation Other bipolar disorder ([facility]) 10/08/2007 Other conduct disorders ([facility]) 10/08/2007 Seizure disorder ([facility]) 10/08/2007 Postoperative Diagnosis: ADHD (attention deficit hyperactivity disorder) ([facility]) 10/08/2007 Anorexia 03/16/2008 Cerebral palsy ([facility]) 10/08/2007 Late effect of adverse effect of drug, medical or biological substance 05/02/2009 Mental impairment ([facility]) 10/08/2007 Mental retardation Other bipolar disorder ([facility]) 10/08/2007 Other conduct disorders ([facility]) 10/08/2007 Seizure disorder ([facility]) 10/08/2007 Surgeon: Stacie Torres DMD Police Captain Surgeon: Chandler Marin DDS Anesthesia: General- Nasal [...] of surgery: Stable documented in this encounter [facility] 12-28-2023 Telephone encounter Note Anesthesia consent scanned into Primo[employer]D. [facility] 12-28-2023 Miscellaneous Notes Anesthesia consent scanned into Primo1D. documented in this encounter [facility] 12-25-2023 Instructions Víctor Goldberg, CRUDE TESTER-DELIVERY CLERK - 12/25/2023 10:36 AM EDT On the [...] for pain Please hold all Vitamin E, [place] 3, fish oil and herbal supplements for 1 week prior to surgery Please hold Naltrexone 3 days prior to surgery. Last dose on 01/03. Please use this CHECKLIST to prepare for your surgery/procedure: ? Assume that any lab or testing done during your Pre-admission testing appointment is within normal limits unless otherwise contacted. ? [facility] one business day prior to surgery [...] your Preparing for Your Surgery/Procedure booklet or [email or web address] if you have questions. Contact the Pre-Admission Testing department at [phone] or your surgeon's office with any questions [...] stay with you after surgery. Please call [facility] Social Work if you need transportation assistance or have concerns about going home [phone]. ? PEDIATRIC or ADOLESCENTS: Parents or a [...] signs of dehydration. Thank you for choosing [facility]; it is our pleasure to care for you documented in this encounter [facility] 12-25-2023 Instructions Víctor Goldberg APRN-CNP - 12/25/2023 [...] for pain Please hold all Vitamin E, [place] 3, fish oil and herbal supplements for 1 week prior to surgery Please hold Naltrexone 3 days prior to surgery. Last dose on 01/03. Please use this CHECKLIST to prepare for your surgery/procedure: ? Assume that any lab or testing done during your Pre-admission testing appointment is within normal limits unless otherwise contacted. ? Expect a call from [employer] one business day prior to surgery for [...] your Preparing for Your Surgery/Procedure booklet or [email or web address] if you have questions. Contact the Pre-Admission Testing department at [phone] or your surgeon's office with any questions [...] stay with you after surgery. Please call [employer] if you need transportation assistance or have concerns about going home [phone]. ? PEDIATRIC or ADOLESCENTS: Parents or a [...] signs of dehydration. Thank you for choosing [facility]; it is our pleasure to care for you documented in this encounter [facility] 12-25-2023 History of Present illness Narrative Images from the original note were not included. Pre-Admission Testing Consultation Vee Sarabia, [id number] 38 year old Female 12/26/2023 Consult placed to [facility] by Dr. Almaraz due to significant PMH of caries. [facility] Triage Risk Score Total Score: 2 2 Patient is on more than 2 antihypertension medications. Vee Sarabia is scheduled for DENTAL RESTORATIONS on 01/08/2024. Pre-Op diagnosis of: Pre-Op Diagnosis Codes: * Caries [K02.9] HISTORY OF PRESENT ILLNESS: Patient presents today with a history of caries. Patient is here for pre-admission optimization and education prior to surgery. She is accompanied with her caregiver at [place], Dora Saucedo, who is helping review the patient's current and past medical history. Gabriela Rodriguez (mother--phone-- [phone]) is legal guardian. RECENT ILLNESS: Serious illness [...] DENTAL RESTORATIONS; Surgeon: Fernando Kurtz DDS; Location: [facility] Surgery [place]; Service: Dental DENTAL RESTORATIONS N/A 11/05/2020 Procedure: DENTAL RESTORATIONS; Surgeon: Dru Friedman DDS; Location: [facility] Surgery [place]; Service: Dental Past Medical History and Review of Systems Pulmonary - negative ROS Dental Comment: Caries--s/p dental restorations x2 Endo (+) hypothyroidism Comment: Hyponatremia sawsmith Comment: LMP: unknown Neuro/Psych (+) seizures, cerebral [...] 5:27 PM 12/26/2023 documented in this encounter [facility] 12-25-2023 History of Present illness Narrative Images from the original note were not included. Pre-Admission Testing Consultation Vee Sarabia, [id number] 38 year old Female 12/26/2023 Consult placed to [facility] by Dr. Almaraz due to significant PMH of caries. [facility] Triage Risk Score Total Score: 2 2 Patient is on more than 2 antihypertension medications. Vee Sarabia is scheduled for DENTAL RESTORATIONS on 01/08/2024. Pre-Op diagnosis of: Pre-Op Diagnosis Codes: * Caries [K02.9] HISTORY OF PRESENT ILLNESS: Patient presents today with a history of caries. Patient is here for pre-admission optimization and education prior to surgery. She is accompanied with her caregiver at [place], Dora Saucedo, who is helping review the patient's current and past medical history. Gabriela Rodriguez (mother--phone-- [phone]) is legal guardian. RECENT ILLNESS: Serious illness [...] DENTAL RESTORATIONS; Surgeon: Fernando Kurtz DDS; Location: [facility] Surgery [place]; Service: Dental DENTAL RESTORATIONS N/A 11/05/2020 Procedure: DENTAL RESTORATIONS; Surgeon: Dru Friedman DDS; Location: [facility] Surgery [place]; Service: Dental Past Medical History and Review of Systems Pulmonary - negative ROS Dental Comment: Caries--s/p dental restorations x2 Endo (+) hypothyroidism Comment: Hyponatremia sawsmith Comment: LMP: unknown Neuro/Psych (+) seizures, cerebral [...] 5:27 PM 12/26/2023 documented in this encounter [facility] 12-25-2023 Note Pre-Admission Testin g Consultation Vee Sarabia, [id number] 38 year old Female 12/26/2023 Consult placed to [facility] by Dr. Almaraz due to significant PMH of caries. [facility] Triage Risk Score Total Score: 2 2 Patient is on more than 2 antihypertension medications. Vee Sarabia is scheduled for DENTAL RESTORATIONS on 01/08/2024. Pre-Op diagnosis of: Pre-Op Diagnosis Codes: * Caries [K02.9] HISTORY OF PRESENT ILLNESS: Patient presents today with a history of caries. Patient is here for pre-admission optimization and education prior to surgery. She is accompanied with her caregiver at [place], Dora Saucedo, who is helping review the patient's current and past medical history. Gabriela Rodrgiuez (mother--phone-- [phone]) is legal guardian. RECENT ILLNESS: Serious illness [...] RESTORATIONS N/A 02/11/2019 Procedure: DENTAL RESTORATIONS; Surgeon: Frenando Kurtz DDS; Location: [facility] Surgery [place]; Service: Dental DENTAL RESTORATIONS N/A 11/05/2020 Procedure: DENTAL RESTORATIONS; Surgeon: Dru Friedman DDS; Location: [facility] Surgery [place]; Service: Dental Past Medical History and Review of Systems Pulmonary - negative ROS Dental Comment: Caries--s/p dental restorations x2 Endo (+) hypothyroidism Comment: Hyponatremia sawsmith Comment: LMP: unknown Neuro/Psych (+) seizures, cerebral [...] MG t (more content not included)... [employer] 09-17-2023 Note [id number] [facility] 09-16-2023 Hospital Discharge instructions Patient Education 09/16/2023 08:49:14 Gastritis, Adult, Gdgd-py-Fcmb Gastritis, Adult Gastritis is irritation and swelling [...] Follow these instructions at home: Medicines Take pcws-odc-bavqxhk and prescription medicines only as told by [...] provider. Document Revised: 09/07/2021 Document Reviewed: 09/07/2021 [employer] Patient Education 2022 [employer]. 09/16/2023 08:49:01 Endoscopy, Care After Procedure [facility] Endoscopy Care After Procedure Please read the [...] Document Re-Released: 10/26/2006 ExitCare Patient Information 2009 [employer]System[employer]. Follow Up Care 09/10/2023 09:54:49 With:Jessee Nina Address: [address] [place] [address], [address] [place] [address] [phone] [facility] (1) When:1 to 2 weeks Comments:Call for any problems. [facility] 09-16-2023 Note Endoscopy Care After Procedure [...] Document Re-Released: 10/26/2006 ExitCare? Patient Information ?2009 [employer]System[employer]. Infectious Disease Gastritis, Adult Gastritis is irritation [...] these instructions at home: Medicines ? Take soew-jbq-vcfqgoq and prescription medicines only as told by [...] ask your do (more content not included)... [facility] 07-22-2022 History of Present illness Narrative ----- Friday, July 22, 2022 at 11:19:05 AM ----- ----- Provider: Grayson Ku, Resident -- Clinic: [facility] ----- OR EVALUATION Patient presents for evaluation [...] Legal Guardian is Gabriela Rodriguez( Mother ): [phone] Dad Bhargav Sarabia [phone] Contact information; [facility] [phone] Extension# [phone] Next Visit: OR ----- Signed on Friday, July 22, 2022 at 12:31:54 PM ----- ----- Provider: [id number] Chinyere Jain DDS -- Clinic: [facility] ----- documented in this encounter [facility] 07-14-2020 Note Patient Outreach ([place] VAMN) VEE SARABIA ([id number]) 1985 F NFR Date Time Provider Department 07/14/20 PUMA SPEAR During your visit today, we recorded the following information about you: Allergies As of Date: 07/14/2020 Noted Allergy Reaction SEASONAL ALLERGIES 11/08/2010 16 - Unknown Date Reviewed: 07/05/2019 Reviewed by: Clover Ng Ma - Fully Assessed Order(s):SARS-COVID VACCINE 1ST DOSE APPT [[id number]] Order #: [id number] FUTURE Prescriptions as of 07/14/2020 Sig: FLUTICASONE [...] Encounter Status:Closed by GURDEEP DELCIDUSER on 07/17/20 [facility] Evaluation + Plan note No data available for this section [facility] Evaluation + Plan note Future Appointments Appointment Date:09/16/2023 08:00:00 AM Scheduled Provider: Location:[facility] Appointment Type:Surgery FT Future Scheduled TestsNM Gastric Emptying Study 09/10/23 [facility] Evaluation + Plan note Future Appointments Appointment Date:09/23/2023 10:30:00 AM Scheduled Provider: Location:[facility] Appointment Type:NM Gastric Emptying Study (FT) Future Scheduled TestsNM Gastric Emptying Study 09/23/23 [facility] Evaluation note Diagnosis Caries- Primary Unspecified [...] instructions No data available for this section [facility] data available for this section [facility] Summary Purpose Family History No Family [...] section and content) DATE CREATED AUTHOR 06/15/2021 [facility] DATE CREATED AUTHOR AUTHOR'S ORGANIZ ATION 10/01/2022 [facility] DATE CREATED AUTHOR AUTHOR'S ORGANIZ ATION 09/28/2023 [facility] DATE CREATED AUTHOR AUTHOR'S ORGANIZ ATION 01/06/2024 [facility] EPIC DATE CREATED AUTHOR AUTHOR'S ORGANIZ ATION 01/11/2024 [facility] Care Teams (unrecognized sec tion and content) [employer] Architect Relationship Specialty Start Date End Date Rm Goldman DDS [address] [place] [address] Resident Dentistry 02/21/20 Mony Adler, GONZALES-DELIVERY CLERK [address] [place] [address] [place] [address] [employer]URAL STE[employer]ADES WORKER Anesthesiology 11/16/20 [employer] Architect Relationship Specialty Start Date End Date SusiRm tavarezKASSIDY [address] [place] [address] Resident Dentistry 02/21/20 Mony dAler APRN-DELIVERY CLERK [address] [place] [address] [place] [address] STRUCTURAL STEEL TRADES WORKER Anesthesiology 11/16/20 [employer] Architect Relationship Specialty Start Date End Date Rm GoldmanKASSIDY [address] [place] [address] Resident Dentistry 02/21/20 Mony Adler APRN-CNP [address] [place] [address] [place] [address] STRUCTURAL STEEL TRADES WORKER Anesthesiology 11/16/20 [employer] Architect Relationship Specialty Start Date End Date Rm GoldmanKASSIDY [address] [place] [address] Resident Dentistry 02/21/20 Mony Adler APRN-DELIVERY CLERK [address] [place] [address] [place] [address] STRUCTURAL STEEL TRADES WORKER Anesthesiology 11/16/20 [employer] Architect Relationship Specialty Start Date End Date Rm GoldmanKASSIDY [address] [place] [address] Resident Dentistry 02/21/20 Mony Adler APRN-CNP [address] [place] [address] [place] [address] STRUCTURAL STEEL TRADES WORKER Anesthesiology 11/16/20 [employer] Architect Relationship Specialty Start Date End Date Rm Goldman [address] [address] Resident Dentistry 02/21/20 Mony Adler APRN-CNP [address] [place] [address] [place] [address] STRUCTURAL STEEL TRADES WORKER Anesthesiology 11/16/20 [employer] Architect Relationship Specialty Start Date End Date Rm Goldman [address] [address] Resident Dentistry 02/21/20 Mony Adler APRN-CNP [address] [place] [address] [place] [address] STRUCTURAL STEEL TRADES WORKER Anesthesiology 11/16/20 [employer] Architect Relationship Specialty Start Date End Date Rm Goldman [address] [address] Resident Dentistry 02/21/20 Mony Adler APRN-CNP [address] [place] [address] [place] [address] STRUCTURAL STEEL TRADES WORKER Anesthesiology 11/16/20 [employer] Architect Relationship Specialty Start Date End Date Rm Goldman [address] [address] Resident Dentistry 02/21/20 Mony Adler APRN-CNP [address] [place] [address] [place] [address] STRUCTURAL STEEL TRADES WORKER Anesthesiology 11/16/20 Reason for Visit (unrecogniz ed section and content) Reason Onset Date Comments Pre-surgical Evaluation 01/06/2024 DD adult dental restorations 01/07 under GA at [place]. PAT completed - consents obtained. PAT RN spoke to Cassidy, confirmed NPO except water only until 0900 (Cassidy stated pt does not like and will not drink water), [place] address, and 1100 arrival time Specialty Diagnoses / Procedures Referred By Ebony snyder Referred To Contact Ambulatory Surgery Diagnoses Caries Caries [[email or web address]] Procedures ANESTHESIA, INTRAORAL PROC, W/BX; NOS UNLISTED PROCEDURE, DENTOALVEOLAR STRUCTURES DENTAL RESTORATIONS Stacie Torres DMD [address] [place] [address] THE INDOM SYSTEM [address] [place] [address] Phone: [phone] Referral ID Status Reason Start Date Expiration Date Visits Re quested Visits Authorized [id number] Reason Onset Date Comments Referral [...] BE BASED ON THE PRIMARY CLINICAL RECORDS. [employer] provides no warranty or guarantee of the accuracy or completeness of information in this document.
[2024-01-15 07:48] LABS: Bilirubin Urine NEGATIVE (NEGATIVE); Blood Urine NEGATIVE (NEGATIVE); Clarity Urine CLEAR (CLEAR); Color Urine LT. YELLOW (YELLOW); Glucose Urine UA NEGATIVE (NEGATIVE); Ketones Urine NEGATIVE (NEGATIVE); Leukocyte Esterase Urine NEGATIVE (NEGATIVE); Nitrite Urine NEGATIVE (NEGATIVE); Protein Urine NEGATIVE (NEG/TRACE); Urobilinogen Urine 0.2 EU/dL (0.2-1.0); pH Urine 6.5 (5.0-9.0)
[2024-01-15 07:49] LABS: Urine Microscopic Indicated NO
== END 2024-01-14 17:28 | disposition home or self-care (01) ==
LOC: LAB 17:27
PROVIDERS: PCP Family Medicine; Visit Provider Family Medicine
DX: R82.998 Other abnormal findings in urine (principal)
CPT/HCPCS: 81003

== ENCOUNTER 2024-01-19 07:30 | Outpatient (OUT) | payer MEDICAID, SELFPAY ==
[2024-01-19 10:51] LABS: Valproic Acid 83.4 ug/mL (50.0-100.0)
== END 2024-01-19 07:31 | disposition home or self-care (01) ==
LOC: LAB 01-20 11:30
PROVIDERS: PCP Family Medicine; Visit Provider Family Medicine
DX: Z79.899 Other long term (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 (principal); R56.9 Unspecified convulsions; F91.9 Conduct disorder, unspecified; Z51.81 Encounter for therapeutic drug level monitoring
CPT/HCPCS: 36415; 80164

== ENCOUNTER 2024-02-03 07:40 | Outpatient (OUT) | payer MEDICAID, SELFPAY ==
--- NOTE | 2024-02-03 | CT_ITS ---
The [address] [address] Patient Name: VEE SOETLO MRN: [id number] date: 1985 Sex: F Assigned Patient Location: CT Current Patient Location: CT Accession/Order Number: [id number] Exam Date: 02/03/2024 07:45 Report Date: 02/03/2024 14:44 At the request of: BALJIT PINEDO Procedure: CT head/brain wo con EXAMINATION: CT head/brain wo con HISTORY: R/O Organic changes headaches. COMPARISON: None. TECHNIQUE: Axial CT images through the head without contrast. Dose reduction techniques were achieved by using: automated exposure control and/or adjustment of mA and /or kV according to patient size and/or use of iterative reconstruction technique. FINDINGS: The ventricles and sulci are within normal limits in size and configuration for age. There is no evidence for acute intracranial hemorrhage. There are no foci of abnormal parenchymal attenuation. There is no mass effect or midline shift. There are no abnormal extraaxial fluid collections. CT/CT head/brain wo con IMPRESSION: Negative for acute intracranial hemorrhage or acute intracranial process. No hydrocephalus or mass effect. Electronically authenticated by: SABINA VIVAR Date: 02/03/2024 14:44
--- OUTSIDE RECORDS SUMMARY | 2024-02-03 07:55 | XMS_ITS | CCD ---
Author Organization [facility] Care Team Providers Care Wirer Name Role Phone Rm Goldman DDS Unavailable [...] Medication Allergies] Propensity to adverse reactions (disorder) [facility] Repository (8 sources) Diazepam; Translations: [DIAZEPAM] Propensity to adverse reactions to drug 4 [facility] (8 sources) diphenhydrAMINE; Translations: [DIPHENHYDRAMINE ] Drug Allergy 4 [facility] (8 sources) trichloroacetald ehyde; Translations: [CHLORAL HYDRATE] Drug Allergy 4 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 in progess notes it states Referral placed to [facility]MS but NO referral can be found in pt's chart. please place referral for oral surgery. Message sent to [facility] Kary on January 13 2024 board. Message placed on board 01/11/24 @ 1152 am Normal [facility] Anesthesia Postprocedure Felicia rodriguezationon 01-08-2024 Small Engine Technician Authentication Interface Message Text Anesthesia Postoperative Assessment: [...] EVENTS: No notable events documented. Normal [facility] Anesthesia Preprocedure Eval uationon 01-08-2024 Small Engine Technician Authentication Interface Message Text ASA: 3 No [...] previous ECGs available Confirmed by LORENZA PARKS ([id number]) on 12/28/2023 8:11:02 PM GI/Hepatic/Renal Comment: - S/P cholecystectomy 2009 Heme/Other - negative ROS Other ROS: - Hx. Of dental restorations - Seasonal allergies - Gabriela Rodriguez (mother--phone-- [phone]) is legal guardian Physical Exam Airway Mallampati: [...] alternatives discussed pre-op (Anesthesia consent scanned into [employer].) Questions answered / anesthesia plan accepted (Anesthesia consent scanned into [employer].) Past medical history, surgical history, allergies, and medications reviewed and Pertinent laboratory tests, EKG, imaging, and consults reviewed Attestation: Anesthesia options were discussed with the patient and/or legal sales representative aircraft. The risks, benefits and alternatives were reviewed. Questions regarding anesthesia were answered. Patient and/or legal sales representative aircraft knows such anesthetics and procedures may be performed by Resident physicians, Certified Anesthesiologist Assistants, or Certified Nurse Anesthetists under the supervision of a physician. The patient /or the patient's legal sales representative aircraft agree with the plan for anesthesia. Comment: Anesthesia consent scanned into [employer]. MHP[employer]FORM Normal [facility] Anesthesia [facility] 01-08-2024 Small Engine Technician Authentication Interface Message Text Patient taken to [...] DENTAL RESTORATIONS; Surgeon: Fernando Kurtz DDS; Location: [facility] [place]; Service: Dental DENTAL RESTORATIONS (11/05/2020) Procedure: DENTAL RESTORATIONS; Surgeon: Dru Friedman DDS; Location: [facility] [place]; Service: Dental Allergies: Benadryl [diphenhydramine], Chloral hydrate, and Valium [diazepam] Basic Operating Room Facts: Surgeon(s): Stacie Torres DMD Anesthesiologist: Justin Shin MD CAA: Eduarda James CAA Senior Ux Developer: Dania Melara MD DENTAL RESTORATIONS Intraoperative Events: [...] was received. Justin Shin MD Normal [facility] Blood Attestationon 01-08-20 Small Engine Technician Authentication Interface Message Text Blood Attestation: ATTESTATION OF INFORMED CONSENT FOR BLOOD: The transfusion of blood and/or blood components were discussed with the patient and/or legal sales representative aircraft. The risks, benefits and alternatives were reviewed. Questions regarding blood transfusions were answered. The patient /or the patient's legal sales representative aircraft agree with the plan for transfusion of blood and/or blood components. Normal [facility] Brief Operative Noteon 01-07 Small Engine Technician Authentication Interface Message Text Brief Operative Note PHE OR 3 Vee Sarabia 38 year old female Surgical Contact Serial Number: [id number] Preoperative Diagnosis: ADHD (attention deficit hyperactivity disorder) ([facility]) 10/08/2007 Anorexia 03/16/2008 Cerebral palsy ([facility]) 10/08/2007 Late effect of adverse effect of drug, medical or biological substance 05/02/2009 Mental impairment ([facility]) 10/08/2007 Mental retardation Other bipolar disorder ([facility]) 10/08/2007 Other conduct disorders ([facility]) 10/08/2007 Seizure disorder ([facility]) 10/08/2007 Postoperative Diagnosis: ADHD (attention deficit hyperactivity disorder) ([facility]) 10/08/2007 Anorexia 03/16/2008 Cerebral palsy ([facility]) 10/08/2007 Late effect of adverse effect of drug, medical or biological substance 05/02/2009 Mental impairment ([facility]) 10/08/2007 Mental retardation Other bipolar disorder ([facility]) 10/08/2007 Other conduct disorders ([facility]) 10/08/2007 Seizure disorder ([facility]) 10/08/2007 Procedures: Full mouth X-ray [56255] Full mouth cleaning [83411] Restorations [37430] Surgeon(s): Surgeon(s): Stacie Torres DMD Yoris, Orlando, DDS Staff: Vice Chair Nurse: Gabriel Hinkle Material Expeditor: Chandler Parham DDS Anesthesia: General Anesthesiologist: Justin [...] Marin DDS 01/08/2024 1:48 PM Normal [facility] HCG, QUANTITATIVEon 01-08-20 24 [facility] Interpretation and review of laboratory results [facility] HCG < 0.6 Normal <5.0 [facility] Comment on above: Performed By: #### H CG #### [facility] [address] [place], [address] OP Noteon 01-08-2024 Small Engine Technician Authentication Interface Message Text Operative Note PHE OR 3 Vee Sarabia 38 year old female Surgical Contact Serial Number: [id number] Preoperative Diagnosis: ADHD (attention deficit hyperactivity disorder) ([facility]) 10/08/2007 Anorexia 03/16/2008 Cerebral palsy ([facility]) 10/08/2007 Late effect of adverse effect of drug, medical or biological substance 05/02/2009 Mental impairment ([facility]) 10/08/2007 Mental retardation Other bipolar disorder ([facility]) 10/08/2007 Other conduct disorders ([facility]) 10/08/2007 Seizure disorder ([facility]) 10/08/2007 Postoperative Diagnosis: ADHD (attention deficit hyperactivity disorder) ([facility]) 10/08/2007 Anorexia 03/16/2008 Cerebral palsy ([facility]) 10/08/2007 Late effect of adverse effect of drug, medical or biological substance 05/02/2009 Mental impairment ([facility]) 10/08/2007 Mental retardation Other bipolar disorder ([facility]) 10/08/2007 Other conduct disorders ([facility]) 10/08/2007 Seizure disorder ([facility]) 10/08/2007 Surgeon: Stacie Torres DMD Student Ministry Pastor Surgeon: Chandler Marin DDS Anesthesia: General- Nasal [...] Marin DDS 01/08/2024 1:53 PM Normal [facility] Progress Noteson 01-08-2024 Small Engine Technician Authentication Interface Message Text [id number] Discharge instructions reviewed, caregiver states pt on mouth was at home therefore does not wish to wait for prescription Normal [facility] Small Engine Technician Authentication Interface Message Text ----- Monday, January 08, 2024 at 3:45:54 PM ----- ----- Provider: Jarrett Torres DMD -- Clinic: [facility] ----- Pt was seen in OR under general anesthesia. comp exam, FMX and 4 quads SRP completed. Topical fluoride applied. #8 MIDLF broken tooth restored with composite. #12,13,14 present with non- restorable cervical lesions interproximally. 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 Referral placed to [facility] See note attached. Operative Note PHE OR 3 Vee Sarabia 38 year old female Surgical Contact Serial Number: [id number] Preoperative Diagnosis: ADHD (attention deficit hyperactivity disorder) ([facility]) 10/08/2007 Anorexia 03/16/2008 Cerebral palsy ([facility]) 10/08/2007 Late effect of adverse effect of drug, medical or biological substance 05/02/2009 Mental impairment ([facility]) 10/08/2007 Mental retardation Other bipolar disorder ([facility]) 10/08/2007 Other conduct disorders ([facility]) 10/08/2007 Seizure disorder ([facility]) 10/08/2007 Postoperative Diagnosis: ADHD (attention deficit hyperactivity disorder) ([facility]) 10/08/2007 Anorexia 03/16/2008 Cerebral palsy ([facility]) 10/08/2007 Late effect of adverse effect of drug, medical or biological substance 05/02/2009 Mental impairment ([facility]) 10/08/2007 Mental retardation Other bipolar disorder ([facility]) 10/08/2007 Other conduct disorders ([facility]) 10/08/2007 Seizure disorder ([facility]) 10/08/2007 Surgeon: Stacie Torres DMD Student Ministry Pastor Surgeon: Chandler Marin DDS Anesthesia: General- Nasal [...] at end of surgery: Stable Normal [facility] Anesthesia Preprocedure Eval uationon 01-07-2024 Small Engine Technician Authentication Interface Message Text ASA: 3 Past [...] previous ECGs available Confirmed by LORENZA PARKS ([id number]) on 12/28/2023 8:11:02 PM GI/Hepatic/Renal Comment: - S/P cholecystectomy 2009 Heme/Other Other ROS: - Hx. Of dental restorations - Seasonal allergies - Gabriela Rodriguez (mother--phone-- [phone]) is legal guardian Physical Exam Airway Dental Dentition: dental caries. Pulmonary Cardiovascular Neuro Disoriented and motor deficit Comment: Cerebral palsy Plan Anesthesia plan: general; (ETT) Anesthesia risks / alternatives discussed pre-op (Anesthesia consent scanned into [employer] Questions answered / anesthesia plan accepted (Anesthesia consent scanned into [employer].) Past medical history, surgical history, allergies, and medications reviewed and Pertinent laboratory tests, EKG, imaging, and consults reviewed Attestation: Comment: Anesthesia consent scanned into [employer]. [employer] Normal [facility] EKG 12 LEAD - PERFORMon 12-16 Diagnosis Normal sinus rhythm Nonspecific T wave abnormality Abnormal ECG No previous ECGs available Confirmed by LORENZA PARKS ([id number]) on 12/28/2023 8:11:02 PM [facility] P wave Atrium by EKG 75 BPM [facility] P wave axis 23 degrees [facility] P-R Interval 130 ms [facility] Q-T interval 390 ms [facility] Q-T interval corrected 435 ms [facility] QRS axis [address] [facility] QRS duration [address] [facility] T wave axis 16 degrees [facility] Telephone Encounteron 2023 Small Engine Technician Authentication Interface Message Text Anesthesia consent scanned into [employer]. [facility] BASIC METABOLIC PANELon 08 Anion gap [Moles/Vol] 13 mmol/L Normal 10-20 [facility] Comment on above: Performed By: #### C H8 #### [facility] [address] [place] [address], Calcium [Mass/Vol] 9.0 mg/dL Normal 8.6-10.3 [facility] Comment on above: Performed By: #### C H8 #### [facility] [address] [place] [address], Chloride [Moles/Vol] 102 mmol/L Normal 98-107 [facility] Comment on above: Performed By: #### C H8 #### [facility] [address] [place] [address], CO2 [Moles/Vol] 23 mmol/L Normal 21-31 [facility] Comment on above: Performed By: #### C H8 #### [facility] [address] [place] [address], Creatinine [Mass/Vol] 0.36 mg/dL Low 0.60-1.20 [facility] Comment on above: Performed By: #### C H8 #### [facility] [address] [place] [address], ESTIMATED GFR (CKD-EPI) 133 mL/min/1.73sqm Normal >=[address] [facility] Comment on above: Result Comment: 2020 [...] Inclusion of Race in Diagnosing Kidney Disease. Citizen Of [place] Journal of Kidney Diseases 202;79(2):268-88.e1. 2. N Engl J Med 1 Vol. 385 Issue 19 Pages 5890-9255 Performed By: #### C H8 #### [facility] [address] [place], [place], Glucose [Mass/Vol] 85 mg/dL Normal 74-[address] [facility] Comment on above: Performed By: #### C H8 #### [facility] [address] [place], [place], Potassium [Moles/Vol] 4.4 mmol/L Normal 3.5-5.[address] [facility] Comment on above: Performed By: #### C H8 #### [facility] [address] [place], [place], Sodium [Moles/Vol] 134 mmol/L Low 136-[address] [facility] Comment on above: Performed By: #### C H8 #### [facility] [address] [place], [place], Urea nitrogen [Mass/Vol] 7 mg/dL Normal 7-[address] [facility] Comment on above: Performed By: #### C H8 #### [facility] [address] [place], [place], Basic metabolic 2000 panelon 12-25-2023 Anion gap [Moles/Vol] 13 mmol/L 10 - 20 [facility] Calcium [Mass/Vol] 9.0 mg/dL 8.6 [...] Inclusion of Race in Diagnosing Kidney Disease. Citizen Of [place] Journal of Kidney Diseases 202;79(2):268-88.e1. 2. N Engl J Med 2020 Vol. 385 Issue 19 Pages 5519-1526 Glucose [Mass/Vol] 85 mg/dL 74 - 109 [...] on above: Performed By: #### C BC ####[facility] [id number] [place], [place], Hematocrit (Bld) [Volume fraction] 33.5 % Low 36.0-46.0 [facility] Comment on above: Performed By: #### C BC ####[facility] [id number] [place], [place], Hemoglobin (Bld) [Mass/Vol] 10.8 g/dL Low 12.0-15.0 [facility] Comment on above: Performed By: #### C BC ####[facility] [id number] [place], [place], MCH (RBC) [Entitic mass] 31.1 pg Normal 26.0-34.0 [facility] Comment on above: Performed By: #### C BC ####[facility] [id number] [place], [place], MCHC (RBC) [Mass/Vol] 32.3 g/dL Normal 32.0-35.9 [facility] Comment on above: Performed By: #### C BC ####[facility] [id number] [place], [place], MCV (RBC) [Entitic vol] 96 fL Normal 80-100 T [facility] Comment on above: Performed By: #### C BC ####[facility] [id number] [place], [place], Platelet mean volume (Bld) [Entitic vol] 9.3 fL Normal 7.5-11.2 [facility] Comment on above: Performed By: #### C BC ####[facility] [id number] [place], [place], Platelets (Bld) [#/Vol] 425 10*3/uL High 150-400 [facility] Comment on above: Performed By: #### C BC ####[facility] [id number] [place], [place], RBC (Bld) [#/Vol] 3.48 10*6/uL Low 4.00-5.20 [facility] Comment on above: Performed By: #### C BC ####[facility] [id number] [place], [place], WBC (Bld) [#/Vol] 5.3 10*3/uL Normal 4.5-11.5 [facility] Comment on above: Performed By: #### C BC ####[facility] [id number] [place], [place], Patient Instructionson 12-24 Small Engine Technician Authentication Interface Message Text On the morning [...] for pain Please hold all Vitamin E, [place] 3, fish oil and herbal supplements for 1 week prior to surgery Please hold Naltrexone 3 days prior to surgery. Last dose on 01/03. Please use this CHECKLIST to prepare for your surgery/procedure: ? Assume that any lab or testing done during your Pre-admission testing appointment is within normal limits unless otherwise contacted. ? Expect a call from [facility] one business day prior to surgery for [...] your Preparing for Your Surgery/Procedure booklet or [email or web address] if you have questions. Contact the Pre-Admission Testing department at [phone] or your surgeon's office with any questions [...] stay with you after surgery. Please call [facility] if you need transportation assistance or have concerns about going home [phone]. ? PEDIATRIC or ADOLESCENTS: Parents or a [...] result (more content not included)... Normal [facility] Progress Noteson 12-10-2023 Small Engine Technician Authentication Interface Message Text Parent/guardian/patient was contacted for PSE AND OR scheduled -- confirmed information with mom, also informed mom importance of receiving PSE call -- if not received surgery will be canceled OR date 01/08/2024 ----- , December 10, 2023 at 11:39:35 AM ----- ----- Provider: Mounika Lin-Finance Admin -- Clinic: [place] ----- Normal [facility] NM Gastric Emptying Studyon 09-27-2023 NM [...] 30.4 3.0 hr (Upper Limit 30%) 1.5 [facility] Consent for Treatmenton Consent for Treatment [id number] F [facility] IntraOperative Documentson 0 09-18-2023 IntraOperative Documents [id number] F [facility] Progress Note-Physicianon Progress Note-Physician Patient: VEE [...] mental retardation (I.Q. 20-34) / SNOMED CT 05964331 / Confirmed Seizure disorder / SNOMED CT 739163836 / Confirmed Seasonal allergy / SNOMED CT 5950117701 / Confirmed Pervasive developmental disorder / SNOMED CT 81936219 / Confirmed Osteoporosis / SNOMED CT 810252245 / Confirmed Impulse control disorder / SNOMED CT 915103049 / Confirmed Disruptive behavior disorder / SNOMED CT 66253737 / Confirmed Constipation / SNOMED CT 13803834 / Confirmed Cholelithiasis / SNOMED CT 123822498 / Confirmed Cerebral palsy / SNOMED CT 826418251 / Confirmed Bipolar / SNOMED CT 424560890 / Confirmed Histories Procedure history: No active procedure history items have been selected or recorded. Social History Social & Psychosocial Habits Tobacco 09/10/2023 Tobacco Use: Never (less than 100 in l Smokeless tobacco use: Never . Physical Examination Airway: Mallampati classification: II (soft palate, fauces, uvula visible). Respiratory: adequate air exchange. Cardiovascular: Regular rhythm. Plan Citizen Of [place] Society of Anesthesiologists (ASA) physical status classification: Class III. Anesthetic Preoperative Plan: Anesthesia General. Normal [facility] Comment on above: Result Comment: Elec [...] when meets criteria ( To home ). [facility] Comment on above: Result Comment: Elec tronically Signed By: Chaim Phillips Jr, DO\ivan\Date and Time Signed: 09/18/23 08:45 EDT Consenton 09-17-2023 Consent [id number] FF [facility] Discharge Instructionson Discharge Instructions [id number] FF [facility] Main OR Intraoperative Recor don 09-17-2023 Main OR Intraoperative Record IntraOp Document Type FT Summary Primary Physician: Kelle RAMIREZ, Jessee Chester Finalized Date/Time: 09/17/23 09:56:06 Pt. Name: VEE SARABIA /Sex: 1985 Female Med Rec #: [id number] Physician: Jessee Nina MD Financial #: [id number] Pt. Type: O Room/Bed: / Admit/Disch: 09/16/23 [...] 3 Case Attendee Margret SALMON, James Haynes SUPERVISOR PAPER TESTING, Josefa Nina MD, Jessee Cerda Role Performed Anesthesiologist Scrub - Primary Surgeon - Primary Student Ministry Pastor Time In 09/16/23 08:21:00 09/16/23 08:21:00 09/16/23 08:21:00 Time Out 09/16/23 08:33:00 09/16/23 08:33:00 09/16/23 08:33:00 Procedure EGD(.) EGD(.) EGD(.) Comments Dr. Phillips is supervising Last Modified By: Kevin HERMOSILLO, Wendy Brown RN, Wendy Dennis RN 09/16/23 08:32:53 09/16/23 08:32:53 09/16/23 08:32:53 Entry 4 Case Attendee Wendy Brown RN Role Performed Vice Chair - Primary Time In 09/16/23 08:21:00 Time [...] Out James Sidhu Given Participants Ivy Gonsales SUPERVISOR PAPER TESTING, Kelle Bean MD, Jessee Chester, Wendy Brown [...] and tissue Entry 1 Skin Integrity Intact, Jenera, Warm, and Skin Abnormality No Dry Outcomes [...] Leg Po (more content not included)... Normal [facility] Consent for Treatmenton Consent for Treatment [id number] F Normal [facility] Discharge Instructionson Discharge Instructions VEE SARABIA [...] weeks Comments: Call for any problems. Where: [address] [place], [place] [address]dict [address], [address] [place] [address]- [phone] Business (1) Medications What How Much When [...] medicines, such (more content not included)... Normal [facility] Comment on above: Result Comment: Elec [...] status post biopsies. Images Procedure images: Rec1_hd_video_ [id number] Rec1_hd_video_ [id number] Rec1_hd_video_ [id number].jpg Rec1_hd_video_ [id number].jpg . Post-Procedure Complications: none. Estimated blood loss: minimal. Specimens: sent to pathology. Devices/ implants: none left in place. Impression and Plan irregular Z-line Gastropathy fundic gland polyps Status post biopsies from stomach and duodenum Recommendations: -Resume previous diet -Resume home medications -Await pathology results Normal [facility] Comment on above: Other Comment: Melissa calderón Attachment - attachment storage system not supported [id number] Can be viewed in source system Missing Attachment - attachment storage system not supported [id number] Can be viewed in source system Missing Attachment - attachment storage system not supported [id number] Can be viewed in source system Missing Attachment - attachment storage system not supported [id number] Can be viewed in source system Main OR PACU I Recordon 05-0 Main OR PACU I Record PACU Phase I Docum ent Type FT Summary Primary Physician: Kelle RAMIREZ, Jessee Chester Finalized Date/Time: 09/16/23 09:20:05 Pt. Name: VEE SARABIA /Sex: 1985 Female Med Rec #: [id number] Physician: Jessee Nina MD Financial #: [id number] Pt. Type: O Room/Bed: / Admit/Disch: 09/16/23 [...] By: Stacie Prescott RN 09/16/23 09:20 Normal [facility] Main OR Preoperative Recordo n 09-16-2023 Main OR Preoperative Record Holding Area Document Type FT Summary Primary Physician: Jessee Nina MD Finalized Date/Time: 09/16/23 07:37:45 Pt. Name: EVE SARABIA Tawanda Moses/Sex: 1985 Female Med Rec #: [id number] Physician: Jessee Nina MD Financial #: [id number] Pt. Type: O Room/Bed: / Admit/Disch: 09/16/23 [...] Adult Bill- staff from postop adult Supervision [facility] supervision available Case Cancelled in No Holding Area see comments below for reason Last Modified By: Vanessa Roy RN 09/16/23 07:35:16 General Comments: Caregiver, Bill present with patient from [facility]. /,RN Finalized By: Vanessa Roy RN Document Signatures Signed By: Vanessa Roy RN 09/16/23 07:37 Normal [facility] Monitor Recordon 09-16-2023 Monitor Record [id number] FF Normal [facility] Monitor Record [id number]#1.00TI FF Normal [facility] Consent for Procedure/Surger yon 09-11-2023 Consent for Procedure/Surgery [id number]#1.00TI FF [facility] Ambulatory Visit Summaryon 0 09-10-2023 Ambulatory [...] Appointments Thursday. 2023 8:00 AM EDT Where: [facility] Surgical Services You Need to Complete the Following NM Gastric Emptying Study, 09/10/23, Routine, Order for Future Visit, Transport Mode: Ambulatory, Reason: Nausea, Nausea and vomiting Invalid Interpretation Code Early satiety [facility] Gastroenterology Office/Clin ic Noteon 09-10-2023 Gastroenterology Office/Clinic Note Chief Complaint nausea/vomiting, constipation, weight loss HPI Staff Patient is a 38 year old female who was referred by [facility] for nausea and vomiting. Intermittent nausea [...] diphtheria/pertussis, acel/tetanus adult 08/14/2022 Recorded SARS-CoV-2 (COVID-19) [id number] 08/14/2022 Recorded influenza virus vaccine, inactivated 03/05/2022 Recorded SARS-CoV-2 (COVID-19) [id number].[id number] 03/05/2022 Recorded 2023-09-09: TPVALL influenza virus vaccine, [...] Recorded measles/mumps/rubella virus vaccine 11/15/1986 Recorded Normal [facility] Comment on above: Result Comment: Elec tronically Signed By: Kelle RAMIREZ, Jessee Andrade.br\Date and Time Signed: 09/10/23 09:40 EDT Assisted Recordson 09-09 Assisted Records [id number]#1.00TIF F Normal [facility] CBC w/Indiceson 04-01-2023 Erythrocyte distribution width (RBC) [Ratio] 15.4 % High 10.9-14.2 [facility] Comment on above: Performed By: #### 2 616801, 1927401, 1270312, 5523773, 0584863, 9168722, 2512482, 73871159, 0111259, 0203817 ####[facility] [address] [place] [address] Hematocrit (Bld) [Volume fraction] 37.4 % Normal 34.0-46.0 [facility] Comment on above: Performed By: #### 2 379328, 3583417, 1327030, 0204379, 4380561, 3467750, 0735326, 16778729, 4481803, 7387478 ####[facility] [address] [place] [address] Hemoglobin (Bld) [Mass/Vol] 12.1 g/dL Normal 12.0-16.0 [facility] Comment on above: Performed By: #### 2 640625, 0430889, 7615387, 9689186, 4499549, 1342607, 1988793, 34475006, 4815876, 9968133 ####[facility] [address] [place] [address] MCH (RBC) [Entitic mass] 30.9 pg Normal 27.0-34.0 [facility] Comment on above: Performed By: #### 2 411797, 6754800, 0983987, 5378907, 5242151, 5636634, 1540763, 71216733, 4702950, 9872140 ####[facility] [address] [place] [address] MCHC (RBC) [Mass/Vol] 32.4 g/dL Normal 31.4-36.0 [facility] Comment on above: Performed By: #### 2 763021, 8516181, 5408188, 8181481, 3681268, 1829596, 8873200, 74514716, 9067199, 2002665 ####[address] [address] MCV (RBC) [Entitic vol] 95.6 fL Normal 80.0-100.0 [facility] Comment on above: Performed By: #### 2 631260, 0067795, 3248691, 8063308, 5706676, 8019885, 2419552, 33038762, 8610871, 1334429 ####[address] [place] [address] Platelet mean volume (Bld) [Entitic vol] 12.2 fL High 6.4-10.8 [facility] Comment on above: Performed By: #### 2 626383, 4097387, 5088404, 1025542, 6499634, 2009814, 3533218, 67727990, 6096259, 6103604 ####[address] [place] [address] Platelets (Bld) [#/Vol] 309.0 E9/L Normal 150. 0-500. 0 [facility] Comment on above: Performed By: #### 2 727601, 4564243, 0614761, 5387869, 8476310, 7037205, 8959234, 65883517, 7080420, 9596130 ####[facility] [address] [place] [address] RBC (Bld) [#/Vol] 3.9 E12/L Low 4.3-5.9 [facility] Comment on above: Performed By: #### 2 308158, 1634270, 0292037, 6496464, 6205802, 3327125, 6744983, 20718020, 3201719, 6168487 ####[facility] [address] [place] [address] WBC corrected for nucl RBC Auto (Bld) [#/Vol] 6.5 E9/L Normal 4.0-11.0 [facility] Comment on above: Performed By: #### 2 699405, 7759475, 3126043, 8638802, 1640166, 2685405, 3397759, 27483157, 1075477, 6612686 ####[facility] [address] [place] [address] CHEMISTRYOrdered By: SYSTEM SYSTEM on 04-01-2023 Albumin [...] 04-01-2023 Albumin [Mass/Vol] 3.7 g/dL Normal 3.3-5.0 [facility] Comment on above: Performed By: #### 2 637316, 1862774, 5406874, 2553792, 7127419, 1828202, 9147467, 70532643, 4795556, 1602260 ####[facility] [address] [place] [address] Albumin/Globulin (S) [Mass conc ratio] 1.2 Normal 1.1-2.2 [facility] Comment on above: Performed By: #### 2 623592, 5101913, 4351253, 3580069, 0160268, 7077292, 8517667, 45490555, 7485553, 2494538 ####[facility] [address] [place] [address] ALP [Catalytic activity/Vol] 32 Int._Unit/L Normal 21-98 [facility] Comment on above: Performed By: #### 2 816178, 7122603, 1751284, 1158827, 4034755, 7455081, 2109124, 47421312, 6720839, 2701914 ####[facility] [address] [place] [address] ALT No additional P-5'-P [Catalytic activity/Vol] 24 Int._Unit/L Normal 6-46 [facility] Comment on above: Performed By: #### 2 706796, 7889139, 7978613, 2609149, 1507483, 9157972, 2430656, 66841580, 7449041, 5945039 ####[facility] [address] [place] [address] Anion gap [Moles/Vol] 13 mmol/L Normal 6-16 [facility] Comment on above: Performed By: #### 2 010259, 7794093, 1749252, 5299785, 6404913, 8596675, 6748193, 72706663, 7400392, 9275520 ####[facility] [address] [place] [address] AST [Catalytic activity/Vol] 28 Int._Unit/L Normal 5-43 [facility] Comment on above: Performed By: #### 2 888877, 2205288, 3718790, 7398590, 1754026, 2563484, 6142341, 00534553, 6886140, 9773545 ####[facility] [address] [place] [address] Bilirubin [Mass/Vol] 0.1 mg/dL Normal 0.0-1.1 [facility] Comment on above: Performed By: #### 2 291897, 6922040, 2010926, 5751529, 0685252, 5242552, 9288896, 40829587, 6217008, 6758067 ####[facility] [address] [place] [address] Calcium [Mass/Vol] 8.9 mg/dL Normal 8.9-11.1 [facility] Comment on above: Performed By: #### 2 675839, 9169371, 3982294, 4273320, 3944381, 6493533, 5614795, 79231951, 2185805, 1119790 ####[facility] [address] [place] [address] Chloride [Moles/Vol] 98 mmol/L Low 101-111 [facility] Comment on above: Performed By: #### 2 025180, 9075925, 3479043, 4850053, 3039917, 4222727, 8389374, 73774144, 3296553, 2466014 ####[facility] [address] [place] [address] CO2 [Moles/Vol] 24 mmol/L Normal 21-31 [facility] Comment on above: Performed By: #### 2 019233, 6048309, 1631595, 9026355, 9421200, 9300853, 2034290, 47021864, 9147628, 3333141 ####[facility] [address] [place] [address] Creatinine [Mass/Vol] 0.5 mg/dL Normal 0.5-1.3 [facility] Comment on above: Performed By: #### 2 606803, 0598373, 3492053, 9739203, 1469747, 7052162, 2251147, 94118674, 7152023, 7294251 ####[facility] [address] [place] [address] Globulin (S) [Mass/Vol] 3.2 g/dL Normal 1.4-4.0 [facility] Comment on above: Performed By: #### 2 321929, 0862612, 9386956, 7157092, 9026767, 8310496, 9623150, 56548128, 3114642, 8061918 ####[facility] [address] [place] [address] Glucose [Mass/Vol] 86 mg/dL Normal 55-199 [facility] Comment on above: Result Comment: If t his glucose result represents a fasting glucose, interpretation should refer to the following reference range: 55-99 mg/dL Performed By: #### 2 343362, 9567824, 3951754, 0110684, 4823242, 5708700, 8609913, 87979285, 4072907, 8374054 ####[facility] [address] [place] [address] Potassium [Moles/Vol] 4.3 mmol/L Normal 3.5-5.3 [facility] Comment on above: Performed By: #### 2 277471, 3733356, 4745880, 2996745, 1433908, 0423242, 4351577, 85707311, 0586832, 0998500 ####[facility] [address] [place] [address] Protein [Mass/Vol] 6.9 g/dL Normal 6.0-7.8 [facility] Comment on above: Performed By: #### 2 564960, 6880191, 6957769, 5745744, 5089756, 4200928, 1513328, 03483402, 6885307, 7259892 ####[facility] [address] [place] [address] Sodium [Moles/Vol] 131 mmol/L Low 135-145 [facility] Comment on above: Performed By: #### 2 314698, 5543612, 4796871, 5034268, 3674001, 4633230, 1660752, 80786429, 2005625, 9749112 ####[facility] [address] [place] [address] Urea nitrogen [Mass/Vol] 8 mg/dL Normal 5-21 [facility] Comment on above: Performed By: #### 2 301475, 2047084, 8871585, 5648632, 8468898, 0737018, 0284060, 44275207, 9066853, 4145289 ####[facility] [address] [place] [address] Urea nitrogen/Creatinine [Mass ratio] 16 No Units Normal 10-20 [facility] Comment on above: Performed By: #### 2 594258, 7862611, 3202744, 5626404, 6937677, 4374006, 6539716, 97850388, 5474302, 8795283 ####[facility] [address] [place] [address] Carbamazepineon 04-01-2023 carBAMazepine [Mass/Vol] 4.4 microgram/mL Normal 4.0-1 2.0 [facility] Comment on above: Performed By: #### 2 915685, 7958516, 3253303, 6472871, 3295746, 1994662, 7722554, 21446116, 2258485, 4305607 ####[facility] [address] [place] [address] Ferritinon 04-01-2023 Ferritin [Mass/Vol] 39 ng/mL Normal 11-307 [facility] Comment on above: Result Comment: NORM ALS MEN <30 YRS 16-132 ng/mL MEN >30 YRS 8-338 ng/mL WOMEN (PREMEN) 6-104 ng/mL WOMEN (POSTMEN) 12-210 ng/mL Performed By: #### 2 696460, 0147849, 2247819, 7694063, 1205921, 6024881, 0524607, 90091807, 0961000, 0952278 ####[facility] [address] [place] [address] Free T4on 04-01-2023 Free T4 [Mass/Vol] 0.97 ng/dL Normal 0.58-1.64 [facility] Comment on above: Performed By: #### 2 850868, 9602429, 5478484, 8503324, 5698918, 6443931, 6246667, 61684707, 6389219, 5381339 ####[facility] [address] [place] [address] HEMATOLOGYOrdered By: Graciela Carey on 04-01-2023 Erythrocyte [...] 04-01-2023 Iron [Mass/Vol] 130 microgram/dL Normal 35-153 [facility] Comment on above: Performed By: #### 2 119593, 8726672, 3423384, 0210680, 8708781, 3048955, 0400495, 85250807, 2255695, 0934951 ####[facility] [address] [place] [address] Physician Orderon 04-01-2023 Physician Order [id number] FF Normal [facility] TSHon 04-01-2023 TSH Qn 0.96 m[IU]/L Normal 0.34-5.60 [facility] Comment on above: Performed By: #### 2 444375, 4291989, 7581404, 7283743, 9683232, 4446865, 7590818, 34756687, 2880509, 2416685 ####[facility] [address] [place] [address] Valproic Acidon 04-01-2023 Valproate [Moles/Vol] 59 microgram/mL Normal 50-99 [facility] Comment on above: Performed By: #### 2 059075, 6769407, 5938000, 5113217, 1857004, 6026078, 6995676, 31543206, 1564309, 6344431 ####[facility] [address] [place] [address] Vit B12on 04-01-2023 Cobalamin (Vitamin B12) [Mass/Vol] 305 pg/mL Normal 50-1500 [facility] Comment on above: Performed By: #### 2 278467, 8074226, 6083887, 7122145, 1080654, 3203660, 8227487, 11132339, 8462425, 1411152 ####[facility] [address] [place] [address] eGFRon 04-01-2023 GFR/1.73 sq M.predicted among non-blacks MDRD (S/P/Bld) [Vol rate/Area] 124 mL/min/1.73 m2 Normal >=59 [facility] Comment on above: Order Comment: Order added by Discern Expert. Result Comment: Bariatric Program Coordinator tamara kidney disease could be indicated at eGFR's of less than 60 mL/min/1.73m2. Kidney failure is indicated at less than 15 mL/min/1.73m2. Performed By: #### 2 319348, 2215469, 5475780, 8221709, 4972284, 7160133, 4827751, 60555701, 5328367, 0471700 ####[facility] [address] [place] [address] CHEMISTRYOrdered By: SYSTEM SYSTEM on 01-14-2023 Valproate [Moles/Vol] 82 microgram/mL Normal 50 - 99 mcg/mL [facility] [place] Physician Orderon 01-14-2023 Physician Order [id number]#1.00CD: 127 Normal [facility] Valproic Acidon 01-14-2023 Valproate [Moles/Vol] 82 microgram/mL Normal 50-99 [facility] Comment on above: Performed By: #### 2 895924 ####[facility] [address] [place] [address] XR DEXA BONE DENSITYon 10-01 XR DEXA [...] by: SANDY RAMIREZ Date: 2022-10-01 11:02 Normal [facility] CBC AUTO DIFFon 09-16-2022 BASO # 0.0 103/ul Normal 0.0-0.1 [facility] Comment on above: Performed By: #### C BC #### [facility] [address] [place] [address] Dr. Chong Agarwal Basophils/100 WBC (Bld) 0.3 % Normal 0.2-2.0 [facility] Comment on above: Performed By: #### C BC #### [facility] [address] [place] [address] Dr. Chong Agarwal EO # 0.0 103/ul Normal 0.0-0.7 [facility] Comment on above: Performed By: #### C BC #### [facility] [address] [place] [address] Dr. Chong Agarwal Eosinophils/100 WBC (Bld) 0.4 % Critically low 0.9-7.0 [facility] Comment on above: Performed By: #### C BC #### [facility] [address] [place] [address] Dr. Chong Agarwal Erythrocyte distribution width (RBC) [Ratio] 14.6 % Normal 11.0-15.0 [facility] Comment on above: Performed By: #### C BC #### [facility] [address] [place] [address] Dr. Chong Agarwal Hematocrit (Bld) [Volume fraction] 37.6 % Normal 36.0-48.0 [facility] Comment on above: Performed By: #### C BC #### [facility] [address] [place] [address] Dr. Chong Agarwal Hemoglobin (Bld) [Mass/Vol] 12.2 g/dL Normal 12.0-16.0 [facility] Comment on above: Performed By: #### C BC #### [facility] [address] [place] [address] Dr. Chong Agarwal IG # 0.02 10e3/ul Normal 0.00-0.03 [facility] Comment on above: Performed By: #### C BC #### [facility] [address] [place] [address] Dr. Chong Agarwal IG % 0.3 % Normal 0.0-0.5 [facility] Comment on above: Performed By: #### C BC #### [facility] [address] [place] [address] Dr. Chong Agarwal LYMPH # 2.4 103/ul Normal 1.2-3.8 [facility] Comment on above: Performed By: #### C BC #### [facility] [address] [place] [address] Dr. Chong Agarwal Lymphocytes/100 WBC (Bld) 34.6 % Normal 20.5-60.0 [facility] Comment on above: Performed By: #### C BC #### [facility] [address] [place] [address] Dr. Chong Agarwal MANUAL DIFF REQ NO Normal [facility] Comment on above: Performed By: #### C BC #### [facility] [address] [place] [address] Dr. Chong Agarwal MCH (RBC) [Entitic mass] 31.4 pg Normal 26.7-34.0 [facility] Comment on above: Performed By: #### C BC #### [facility] [address] [place] [address] Dr. Chong Agarwal MCHC (RBC) [Mass/Vol] 32.4 g/dL Normal 29.9-35.2 [facility] Comment on above: Performed By: #### C BC #### [facility] [address] [address] [address] Chong Agarwal MCV (RBC) [Entitic vol] 96.7 fL Normal 81.0-99.0 [facility] Comment on above: Performed By: #### C BC #### [facility] [address] [address] [address] Chong Agarwal MONO # 0.7 103/ul Normal 0.3-0.8 [facility] Comment on above: Performed By: #### C BC #### [facility] [address] [address] [address] Chong Agarwal Monocytes/100 WBC (Bld) 10.2 % Normal 1.7-12.0 [facility] Comment on above: Performed By: #### C BC #### [facility] [address] [address] [address] Chong Agarwal NEUT # 3.8 103/ul Normal 1.4-6.5 [facility] Comment on above: Performed By: #### C BC #### [facility] [address] [address] [address] Chong Agarwal Neutrophils/100 WBC (Bld) 54.2 % Normal 43.0-75.0 [facility] Comment on above: Performed By: #### C BC #### [facility] [address] [address] [address] Chong Agarwal Platelet mean volume (Bld) [Entitic vol] 11.0 fL Normal 9.5-13.5 [facility] Comment on above: Performed By: #### C BC #### [facility] [address] [address] [address] Chong Agarwal PLT 290 103/ul Normal 150-450 [facility] Comment on above: Performed By: #### C BC #### [facility] [address] [address] [address] Chong Agarwal RBC 3.89 106/ul Critically low 4.20-5.40 [facility] Comment on above: Performed By: #### C BC #### [facility] [address] [address] [address] Chong Agarwal WBC 7.0 103/ul Normal 4.0-11.0 [facility] Comment on above: Performed By: #### C BC #### [facility] [address] [address] [address] Chong Agarwal FREE T3on 09-16-2022 FREE T3 2.11 pg/mlL Critically low 2.18-3.98 [facility] Comment on above: Performed By: #### T SH, CMP, LIPID, FT3 #### [facility] [address] [address] [address] Chong Agarwal FREE T4on 09-16-2022 Free T4 [Mass/Vol] 1.25 ng/dL Normal 0.76-1.46 [facility] Comment on above: Performed By: #### F T4, VITB12 #### [facility] [address] [place] [address] Dr. Chong Agarwal LIPID PROFILEon 09-16-2022 CHOL-HDL RATIO NORM SEE BELOW Normal [facility] Comment on above: Result Comment: 3.3 - 4.4 LOW RISK 4.4 - 7.1 AVERAGE RISK 7.1 - 11.0 MODERATE RISK >11.0 HIGH RISK Performed By: #### T SH, CMP, LIPID, FT3 #### [facility] [address] [place] [address] Dr. Chong Agarwal Cholesterol [Mass/Vol] 144 mg/dL Normal <=200 [facility] Comment on above: Performed By: #### T SH, CMP, LIPID, FT3 #### [facility] [address] [place] [address] Dr. Chong Agarwal Cholesterol in HDL [Mass/Vol] 49 mg/dL Normal 40-60 [facility] Comment on above: Performed By: #### T SH, CMP, LIPID, FT3 #### [facility] [address] [place] [address] Dr. Chong Agarwal Cholesterol in LDL [Mass/Vol] 78.0 mg/dL Normal [facility] Comment on above: Performed By: #### T SH, CMP, LIPID, FT3 #### [facility] [address] [address] [address] Chong Agarwal Cholesterol.total/Choles terol in HDL [Mass ratio] 2.9 {ratio} Normal [facility] Comment on above: Performed By: #### T SH, CMP, LIPID, FT3 #### [facility] [address] [address] [address] Chong Agarwal HDL NORMAL > or = 60 mg/dl - LO W CARDIOVASCULAR RISK <40 mg/dl - HIGH CARDIOVASCULAR RISK Normal [facility] Comment on above: Performed By: #### T SH, CMP, LIPID, FT3 #### [facility] [address] [address] [address] Chong Agarwal LDL CALC NORMAL SEE BELOW Normal [facility] Comment on above: Result Comment: <100 mg/dl OPTIMAL 100 - 129 mg/dl NEAR OR ABOVE OPTIMAL 130 - 159 mg/dl BORDERLINE HIGH 160 - 189 mg/dl HIGH >190 mg/dl VERY HIGH Performed By: #### T SH, CMP, LIPID, FT3 #### [facility] [address] [address] [address] Chong Agarwal Triglyceride [Mass/Vol] 85 mg/dL Normal <=150 [facility] Comment on above: Performed By: #### T SH, CMP, LIPID, FT3 #### [facility] [address] [address] [address] Chong Agarwal VLDL CALC 17.0 mg/dL Normal [facility] Comment on above: Performed By: #### T SH, CMP, LIPID, FT3 #### [facility] [address] [address] [address] Chong Agarawl PROF 14(COMP METB)on 023 Albumin [Mass/Vol] 3.5 g/dL Normal 3.4-5.0 [facility] Comment on above: Performed By: #### T SH, CMP, LIPID, FT3 #### [facility] [address] [address] [address] Chong Agarwal Albumin/Globulin [Mass ratio] 0.9 {ratio} Normal [facility] Comment on above: Performed By: #### T SH, CMP, LIPID, FT3 #### [facility] [address] [place] [address] Dr. Chong Agarwal ALP [Catalytic activity/Vol] 31 U/L Critically low 46-116 [facility] Comment on above: Performed By: #### T SH, CMP, LIPID, FT3 #### [facility] [address] [place] [address] Dr. Chong Agarwal ALT [Catalytic activity/Vol] 34 U/L Normal 14-59 [facility] Comment on above: Performed By: #### T SH, CMP, LIPID, FT3 #### [facility] [address] [place] [address] Dr. Chong Agarwal Anion gap [Moles/Vol] 8.3 mmol/L Normal [facility] Comment on above: Performed By: #### T SH, CMP, LIPID, FT3 #### [facility] [address] [place] [address] Dr. Chong Agarwal AST [Catalytic activity/Vol] 22 U/L Normal 15-37 [facility] Comment on above: Performed By: #### T SH, CMP, LIPID, FT3 #### [facility] [address] [place] [address] Dr. Chong Agarwal Bilirubin [Mass/Vol] 0.2 mg/dL Normal 0.2-1.0 [facility] Comment on above: Performed By: #### T SH, CMP, LIPID, FT3 #### [facility] [address] [place] [address] Dr. Chong Agarwal Calcium [Mass/Vol] 9.0 mg/dL Normal 8.5-10.1 [facility] Comment on above: Performed By: #### T SH, CMP, LIPID, FT3 #### [facility] [address] [place] [address] Dr. Chong Agarwal Chloride [Moles/Vol] 101 mmol/L Normal 98-107 [facility] Comment on above: Performed By: #### T SH, CMP, LIPID, FT3 #### [facility] [address] [address] [address] Chong Agarwal CO2 [Moles/Vol] 30.0 mmol/L Normal 21.0-32.0 [facility] Comment on above: Performed By: #### T SH, CMP, LIPID, FT3 #### [facility] [address] [address] [address] Chong Agarwal Creatinine [Mass/Vol] 0.54 mg/dL Critically low 0.55-1.02 [facility] Comment on above: Performed By: #### T SH, CMP, LIPID, FT3 #### [facility] [address] [address] [address] Chong Agarwal EGFR-AF SAMOAN >60 Normal >=60 [facility] Comment on above: Performed By: #### T SH, CMP, LIPID, FT3 #### [facility] [address] [address] [address] Chong Agarwal EGFR-NON AF SAMOAN >60 Normal >=60 [facility] Comment on above: Performed By: #### T SH, CMP, LIPID, FT3 #### [facility] [address] [address] [address] Chong Agarwal Globulin (S) [Mass/Vol] 3.9 g/dL Normal [facility] Comment on above: Performed By: #### T SH, CMP, LIPID, FT3 #### [facility] [address] [address] [address] Chong Agarwal Glucose [Mass/Vol] 95 mg/dL Normal 74-106 [facility] Comment on above: Performed By: #### T SH, CMP, LIPID, FT3 #### [facility] [address] [address] [address] Chong Agarwal Potassium [Moles/Vol] 4.3 mmol/L Normal 3.5-5.1 [facility] Comment on above: Performed By: #### T SH, CMP, LIPID, FT3 #### [facility] [address] [address] [address] Chong Agarwal Protein [Mass/Vol] 7.4 g/dL Normal 6.4-8.2 [facility] Comment on above: Performed By: #### T SH, CMP, LIPID, FT3 #### [facility] [address] [place] [address] Dr. Chong Agarwal Sodium [Moles/Vol] 135 mmol/L Critically low 136-[address] [facility] Comment on above: Performed By: #### T SH, CMP, LIPID, FT3 #### [facility] [address] [place] [address] Dr. Chong Agarwal Urea nitrogen [Mass/Vol] 12.0 mg/dL Normal 7.0-18.0 [facility] Comment on above: Performed By: #### T SH, CMP, LIPID, FT3 #### [facility] [address] [place] [address] Dr. Chong Agarwal Urea nitrogen/Creatinine [Mass ratio] 22.2 mg/mg Normal [facility] Comment on above: Performed By: #### T SH, CMP, LIPID, FT3 #### [facility] [address] [place] [address] Dr. Chong Agarwal TSHon 09-16-2022 TSH 0.986 uIU/mL Normal 0.358-3.74 0 [facility] Comment on above: Performed By: #### T SH, CMP, LIPID, FT3 #### [facility] [address] [place] [address] Dr. Chong Agarwal VITAMIN B12on 09-16-2022 Cobalamin (Vitamin B12) [Mass/Vol] 581.0 pg/mL Normal 193.0-986. 0 [facility] Comment on above: Performed By: #### F T4, VITB12 #### [facility] [address] [place] [address] Dr. Chong Agarwal CULTURE WOUNDon 08-22-2022 CULTURE [...] Trimethoprim/Sulfamethox azole <=10 S F Normal [facility] Comment on above: Performed By: #### W OUNDCX #### [facility] [address] [place] [address] Dr. Chong Agarwal DEPAKENE/ VALPROIC ACIDon DEPAKENE 92.4 ug/ml Normal 50.0-100.0 [facility] Comment on above: Performed By: #### V ALP #### [facility] [address] [place] [address] Dr. Chong Agarwal Vital Signs Date Time Vital Sign Value Performing Clinician Facility 01-08-2024 16:00-0400 Diastolic blood pressure 26 mm[Hg] Stacie Torres DMD Work Phone: [facility] 01-08-2024 16:00-0400 Heart rate 84 /min Stacie Torres DMD Work Phone: [facility] 01-08-2024 16:00-0400 Respiratory rate 22 /min Stacie Torres DMD Work Phone: [facility] 01-08-2024 16:00-0400 SaO2% (BldA) [Mass fraction] 96 % Stacie Torres DMD Work Phone: [facility] 01-08-2024 16:00-0400 Systolic blood pressure 94 mm[Hg] Stacie Torres DMD Work Phone: [facility] 01-08-2024 15:56-0400 Body temperature 98.1 [degF] Stacie Torres DMD Work Phone: [facility] 01-08-2024 11:04-0400 Body height 147.3 cm Stacie Torres DMD Work Phone: [facility] 01-08-2024 11:04-0400 Body mass index (BMI) [Ratio] 31.98 kg/m2 Stacie Torres DMD Work Phone: [facility] 01-08-2024 11:04-0400 Body weight 69.4 kg Stacie Torres DMD Work Phone: [facility] 12-28-2023 20:36-0400 Heart rate 75 /min Víctor Earl FORENSIC ENGINEER-H[employer] OPERATIONS SPECIALIST Work Phone: [facility] 12-25-2023 10:34-0400 Body height 147.3 cm Víctor Earl FOR[employer]IC ENGINEER[employer]HUM[employer]OURCES OPERATIONS SPECIALIST Work Phone: [facility] 12-25-2023 10:34-0400 Body mass index (BMI) [Ratio] 31.98 kg/m2 Justensamia Earl FORENSIC ENGINEER-HUMAN RESOURCES OPERATIONS SPECIALIST Work Phone: [facility] 12-25-2023 10:34-0400 Body temperature 98.91 [degF] Víctor Goldberg FORENSIC ENGINEER-HUMAN RESOURCES OPERATIONS SPECIALIST Work Phone: [facility] 12-25-2023 10:34-0400 Body weight 69.4 kg Víctor Goldberg FORENSIC ENGINEER[employer]HUM[employer]OURCES OPERATIONS SPECIALIST Work Phone: [facility] 12-25-2023 10:34-0400 Diastolic blood pressure 61 mm[Hg] Edward Zienkowski FORENSIC ENGINEER-HUMAN RESOURCES OPERATIONS SPECIALIST Work Phone: [facility] 12-25-2023 10:34-0400 Heart rate 86 /min Víctor Goldberg FORENSIC ENGINEER-HUM[employer]OURCES OPERATIONS SPECIALIST Work Phone: [facility] 12-25-2023 10:34-0400 Respiratory rate 16 /min Víctor Goldberg FORENSIC ENGINEER[employer]HUM[employer] RESOURCES OPERATIONS SPECIALIST Work Phone: [facility] 12-25-2023 10:34-0400 SaO2% (BldA) [Mass fraction] 99 % Víctor Goldberg FORENSIC ENGINEER[employer]HUM[employer]OURCES OPERATIONS SPECIALIST Work Phone: [facility] 12-25-2023 10:34-0400 Systolic blood pressure 94 mm[Hg] Víctor Goldberg FOR[employer]IC ENGINEER[employer] OPERATIONS SPECIALIST Work Phone: [facility] 09-16-2023 09:00-0400 Diastolic blood pressure 61 mm[Hg] Mohamad Mouchli [facility] 09-16-2023 09:00-0400 Heart rate 70 /min Mohamad Mouchli [facility] 09-16-2023 09:00-0400 Mean blood pressure 74 mm[Hg] Mohamad Mouchli [facility] 09-16-2023 09:00-0400 Systolic blood pressure 99 mm[Hg] Mohamad Mouchli [facility] 09-16-2023 08:50-0400 Blood Pressure Location Mohamad Mouchli [facility] 09-16-2023 08:50-0400 Diastolic blood pressure 68 mm[Hg] Mohamad Mouchli [facility] 09-16-2023 08:50-0400 Heart rate 72 /min Mohamad Mouchli [facility] 09-16-2023 08:50-0400 Mean blood pressure 79 mm[Hg] Mohamad Mouchli [facility] 09-16-2023 08:50-0400 Respiratory rate 12 /min Mohamad Mouchli [facility] 09-16-2023 08:50-0400 SaO2% (BldA) [Mass fraction] 96 % Mohamad Mouchli [facility] 09-16-2023 08:50-0400 Systolic blood pressure 100 mm[Hg] Mohamad Mouchli [facility] 09-16-2023 08:45-0400 Diastolic blood pressure 83 mm[Hg] Mohamad Mouchli [facility] 09-16-2023 08:45-0400 Heart rate 86 /min Mohamad Mouchli [facility] 09-16-2023 08:45-0400 Mean blood pressure 88 mm[Hg] Mohamad Mouchli [facility] 09-16-2023 08:45-0400 Respiratory rate 17 /min Mohamad Mouchli [facility] 09-16-2023 08:45-0400 SaO2% (BldA) [Mass fraction] 97 % Mohamad Mouchli [facility] 09-16-2023 08:45-0400 Systolic blood pressure 98 mm[Hg] Mohamad Mouchli [facility] 09-16-2023 08:35-0400 Body temperature 98.06 [degF] Mohamad Mouchli [facility] 09-16-2023 07:39-0400 Body temperature 98.06 [degF] Mohamad Mouchli [facility] 09-10-2023 09:10-0400 Blood Pressure Location TheraVidaalma delia Melendezli [facility] 09-10-2023 09:10-0400 Diastolic blood pressure 67 mm[Hg] Gersond Mouchli [facility] 09-10-2023 09:10-0400 Heart rate 91 /min Jessee Melendezli [facility] 09-10-2023 09:10-0400 Respiratory rate 16 /min Masheryd Rejiuchli [facility] 09-10-2023 09:10-0400 Systolic blood pressure 113 mm[Hg] Jessee Melendezli [facility] Encounters Encounter Date Encounter Type Care Provider Facility Start: 01-11-2024 End: 01-11-2024 Telephone encounter Stacie Torres DMD Work Phone: [facility] Comment on above: Referral needs place d for OS Start: 01-08-2024 End: 01-08-2024 Patient encounter procedure Stacie Torres DMD Work Phone: [facility] Comment on above: Arrived Start: 01-08-2024 End: 01-08-2024 ambulatory UNKNOWN PROVIDER Facility:[facility] Start: 01-08-2024 End: 01-08-2024 Subsequent hospital visit by physician Stacie Torres DMD Work Phone: [facility] Start: 01-08-2024 ambulatory UNKNOWN PROVIDER Facili ty:[facility] Start: 01-06-2024 End: 01-06-2024 Telephone encounter Bronwyn Pradhan RN [facility] Pre-[facility]mission [facility] Comment on above: Pre-surgical Evaluat ion (DD adult dental restorations 01/07 under [place] at [place]. PAT completed - consents obtained. MARY RN spoke to Cassidy, confirmed NPO except water only until 0900 (Cassidy stated pt does not like and will not drink water), [place] address, and 1100 arrival time/) Start: 01-05-2024 End: 01-05-2024 ambulatory POONAM TALBERT Not Available Start: 12-28-2023 End: 12-28-2023 Telephone encounter Susie Dumont RN [facility] Start: 12-25-2023 End: 12-28-2023 Patient encounter procedure Justensamia Earl FORENSIC ENGINEER-H[employer] OPERATIONS SPECIALIST [facility] [place] [facility] Comment on above: Preop testing (Prima ry Dx); Body mass index (BMI) 31.0-31.9, adult Preop testing (Prima ry Dx); Body mass index (BMI) 31.0-31.9, adult; Abnormal electrocardiogram (ECG) (EKG); Abnormal electrocardiogram (ECG) (EKG) Start: 12-25-2023 End: 12-28-2023 Patient encounter status Víctor Goldberg FORENSIC ENGINEER-HUMAN RESOURCES OPERATIONS SPECIALIST Work Phone: [facility] Work Phone: Start: 12-25-2023 End: 12-28-2023 ambulatory VÍCTOR GOLDBERG Facility:[facility] Start: 12-25-2023 Encounter for other preprocedural examination VÍCTOR GOLDBERG [facility] Start: 09-23-2023 End: 09-24-2023 ambulatory Jessee Nina [facility] Start: 09-23-2023 End: 09-23-2023 Patient encounter procedure Jessee Nina [facility] Start: 09-16-2023 End: 09-17-2023 ambulatory Jessee Nina Facility[facility] Start: 09-16-2023 End: 09-16-2023 Patient encounter procedure Jessee Nina [facility] Start: 09-10-2023 End: 09-11-2023 ambulatory Jessee Nina Facility:[facility] Start: 09-10-2023 End: 09-10-2023 Patient encounter procedure Jessee Nina [facility] Start: 09-09-2023 ambulatory Jessee Nina Facilit y:[facility] Start: 04-01-2023 End: 04-02-2023 ambulatory BALJIT PINEDO Facility[facility] Start: 04-01-2023 End: 04-01-2023 Lab Drop off BALJIT PINEDO [facility] Start: 01-14-2023 End: 01-15-2023 ambulatory BALJIT PINEDO Facility[facility] Start: 01-14-2023 End: 01-14-2023 Lab Drop off BALJIT PINEDO [facility] Start: 10-01-[address] BALJIT PINEDO Fac ility:[facility] Start: 09-16-2022 End: 09-17-[address] BALJIT PINEDO Facility:[facility] Start: 08-19-2022 End: 08-19-[address] BALJIT PINEDO Facility:[facility] Start: 07-22-2022 End: 07-25-2022 Patient encounter procedure Kary Ku DDS Work Phone: [facility] Start: 06-08-2022 Letter encounter Rm Goldman DDS Work Phone: [facility] Start: 04-29-2022 End: 04-30-[address] BALJIT PINEDO Facility:[facility] Procedures Date Procedure Procedure Detail Performing Clinician Start: 01-08-2024 Gonadotropin chorionic quantitative Kim lorie Shin MD Work Phone: Start: 12-25-2023 Blood count complete automated Víctor brock FORENSIC ENGINEER-HUM[employer]OURCES OPERATIONS SPECIALIST Work Phone: Start: 12-25-2023 Ecg routine ecg [...] Routine scheduled Caries 01/08/2024 2:10 PM EDT [facility] Start: 01-08-2024 End: 01-08-2024 Admission to same day surgery center 01/08/2024 11:28 AM EDT - 01/08/2024 1:23 PM EDT Surgery [facility] [address] [place] [address] Stacie Torres DMD [address] [place], [place] [id number] [facility] Comment on above: [facility] Start: 01-08-2024 End: 01-08-2024 D[facility]AL RESTORATIONS [facility] Routine scheduled Caries 01/08/2024 11:[address] [facility] Start: 01-08-2024 Subsequent hospital visit by physician 01/08/2024 11:28 AM EDT Hospital Encounter [facility] [address] [place], [place] [id number] Stacie Torres DMD [address] [place] [address] [facility] Start: 01-08-2024 End: 01-08-2024 Patient encounter procedure 01/08/2024 11:00 AM EDT Procedure Visit [facility] [address] [place] [id number] Stacie Torres DMD [address] [place] [address] [facility] Start: 01-08-2024 End: 01-08-2024 Admission to same day surgery center 01/08/2024 7:20 AM EDT - 01/08/2024 9:15 AM EDT Surgery [facility] [address] [place] [address] Stacie Torres DMD [address] [place] [address] [employer] [employer]ATIONS [facility] Comment on above: [facility] Start: 01-08-2024 End: 01-08-2024 DENTAL RESTORATIONS D[facility]AL [facility]ATIONS Routine scheduled Caries 01/08/2024 7:[address] [facility] Start: 01-08-2024 Subsequent hospital visit by physician 01/08/2024 7:20 AM EDT Hospital Encounter [facility] [address] [place] [address] Stacie Torres DMD [address] [place] [address] [facility] Start: 01-16-2023 COVID-19 Vaccine ( season) COVID-19 Vaccine ( season) [facility] Start: 08-31-2022 Tetanus vaccination Tetanus (T d or Tdap) Booster [facility] Start: 07-22-2022 End: 07-22-2022 Patient encounter procedure 07/22/2022 Procedure Visit Dentistry Diana Horan, [address] [address] [facility] Start: 02-15-2022 Influenza vaccination Influenza Vacc ine (#1) [facility] Start: 2012 HPV Vaccine (optiona l start 27-45 years) HPV Vaccine (optional start 27-45 years) [facility] Start: 2006 Screening for malign ant neoplasm of cervix [facility] Smear [facility] Start: 2004 Hepatitis A (HAV) Vaccine (optional start 19+ years) Hepatitis A (HAV) Vaccine (optional start 19+ years) [facility] Start: 2004 Hepatitis B vaccination Hepati tis B (HBV) Vaccine (1 of 3 - 19+ 3-dose series) [facility] Start: 2003 Hepatitis C screening Hepatitis C An tibody [facility] Start: 2000 HIV screening HIV Test [facility] Start: 1985 Screening for malign ant neoplasm of breast [facility] Ecg routine ecg w/le ast 12 lds trcg only w/o i&r EKG 12 LEAD - PERFORM MUSE Routine Preop testing Ordered: 12/25/2023 [employer] Work Phone: Comment on above: Ordered: 12/25/2023 End: 01-08-2024 Urine test visual color cmprsn meths URINE HCG-IN OFFICE Lab Routine One time for 1 Occurrences starting 01/08/2024 until 01/08/2024 [employer] Work Phone: Comment on above: One time for 1 Occur rences starting 01/08/2024 until 01/08/2024 Immunizations Immunization Date Immunization Notes Care Provider Destini fulton 03-04-2023 influenza virus vacc ine, unspecified formulation [facility] 08-14-2022 SARS-CoV-2 (COVID-19 ) [id number] TheraVidaalma delia Nina [facility] 08-14-2022 tetanus toxoid, redu penelope diphtheria toxoid, and acellular pertussis vaccine, adsorbed Masherycarmelo Nina [facility] 03-05-2022 influenza virus vacc ine, unspecified formulation [facility] Nina [facility] 03-05-2022 SARS-CoV-2 (COVID-19 ) [id number] Jessee Nina [facility] Comment on above: Result Comment: 2023: TPVALL 03-13-2021 influenza, injectabl e, quadrivalent, preservative free Rm Goldman [facility]XS [facility] 03-13-2021 SARS-CoV-2 (COVID-19 ) mRNA BNT-[id number] vax Jessee Nina [facility] Comment on above: Result Comment: 2023: TPV3 03-13-2021 influenza virus vacc ine, unspecified formulation Rm Goldman VHXS Work Phone: [facility] 06-19-2020 Pfizer (12+ yrs) SARS-COV-2 (COVID-19) vaccine, mRNA, spike protein, LNP, pres. free, 30 mcg/0.3mL dose (SLM=971) Rm Goldman VHXS Work Phone: [facility] Comment on above: Result Comment: 2023: TPVAL 05-29-2020 Pfizer (12+ yrs) SARS-COV-2 (COVID-19) vaccine, mRNA, spike protein, LNP, pres. free, 30 mcg/0.3mL dose (VFF=286) Rm Goldman VHXS Work Phone: [facility] Comment on above: Result Comment: 2023: TPVAL 02-22-2020 influenza virus vacc ine, unspecified formulation Jsesee Nina [facility] 02-22-2020 influenza, injectabl e, quadrivalent, preservative free Rm Goldman VHXS [facility] 03-11-2019 influenza virus vacc ine, unspecified formulation Mohamad Mouchli [facility] 03-11-2019 influenza, injectabl e, quadrivalent, preservative free Rm Susi DDS Work Phone: [facility] 02-24-2018 influenza virus vacc ine, unspecified formulation Mohamad Mouchli [facility] 02-24-2018 influenza, injectabl e, quadrivalent, preservative free Rm Susi DDS Work Phone: [facility] 03-11-2017 influenza virus vacc ine, unspecified formulation Mohamad Mouchli [facility] 03-11-2017 influenza, injectabl e, quadrivalent, contains preservative Rm Susi DDS Work Phone: [facility] 02-20-2016 influenza virus vacc ine, unspecified formulation Mohamad Mouchli [facility] 02-20-2016 influenza, seasonal, injectable Rm Susi DDS Work Phone: [facility] 03-08-2015 influenza virus vacc ine, unspecified formulation Mohamad Mouchli [facility] 03-08-2015 influenza, injectabl e, quadrivalent, preservative free Rm Susi DDS Work Phone: [facility] 03-23-2014 influenza virus vacc ine, unspecified formulation Mohamad Mouchli [facility] 03-23-2014 influenza, injectabl e, quadrivalent, preservative free Rm Susi DDS Work Phone: [facility] 03-15-2013 influenza virus vacc ine, unspecified formulation Mohamad Mouchli [facility] 03-15-2013 influenza, seasonal, injectable Rm Susi DDS Work Phone: [facility] 08-31-2012 tetanus toxoid, redu penelope diphtheria toxoid, and acellular pertussis vaccine, adsorbed Rm Goldman DDS Work Phone: [facility] 03-10-2012 influenza virus vacc ine, unspecified formulation Mohamad Mouchli [facility] 03-10-2012 influenza, seasonal, injectable Rm Goldman DDS Work Phone: [facility] 01-29-2011 influenza virus vacc ine, unspecified formulation Mohamad Mouchli [facility] 01-29-2011 influenza, seasonal, injectable Rm Goldman DDS Work Phone: [facility] 03-13-2010 influenza virus vacc ine, whole virus Rm Goldman DDS Work Phone: [facility] 03-13-2010 influenza, whole Mohamad Erica chli [facility] 04-04-2009 novel influenza-H1N1 -09, preservative-free, injectable Rm Goldman DDS Work Phone: [facility] 03-09-2008 influenza virus vacc ine, whole virus Rm Goldman DDS Work Phone: [facility] 03-09-2008 influenza, whole Mohamad Erica chli [facility] 10-01-2006 meningococcal ACWY vaccine, unspecified formulation Mohemanueld Mouchli [facility] 10-01-2006 meningococcal polysaccharide (groups A, C, Y and W-135) diphtheria toxoid conjugate vaccine (MCV4P) Rm Goldman DDS Work Phone: [facility] 09-02-2000 TD(adult) unspecifie d formulation; Translations: [Td(adult) unspecified formulation] Rm Goldman DDS Work Phone: [facility] 07-29-1990 diphtheria, tetanus toxoids and pertussis vaccine Rm Goldman DDS Work Phone: [facility] 07-29-1990 trivalent poliovirus vaccine, live, oral Rm Goldman DDS Work Phone: [facility] 11-03-1987 trivalent poliovirus vaccine, live, oral Rm Goldman DDS Work Phone: [facility] 07-02-1987 haemophilus influenz ae type b vaccine, conjugate unspecified formulation Rm Goldman DDS Work Phone: [facility] 07-02-1987 Hib, unspecified formulation Rosetteemanuelcarmelo Melendezli [facility] 05-29-1987 diphtheria, tetanus toxoids and pertussis vaccine Rm Goldman DDS Work Phone: [facility] 05-29-1987 trivalent poliovirus vaccine, live, oral Rm Goldman DDS Work Phone: [facility] 11-15-1986 measles, mumps and rubella virus vaccine Rm Goldman DDS Work Phone: [facility] 06-28-1986 trivalent poliovirus vaccine, live, oral Rm Goldman DDS Work Phone: [facility] 1985 diphtheria, tetanus toxoids and pertussis vaccine Rm Goldman DDS Work Phone: [facility] 1985 diphtheria, tetanus toxoids and pertussis vaccine Rm Goldman DDS Work Phone: [facility] 1985 trivalent poliovirus vaccine, live, oral Rm Goldman DDS Work Phone: [facility] 1985 diphtheria, tetanus toxoids and pertussis vaccine Rm Goldman DDS Work Phone: [facility] Payers Date Payer Category Payer Medicaid [id number] 1985 Unknown [id number] 2.16.8 [id number] 1985 Unknown [id number] 2.16.8 [id number] 1985 Unknown [id number] 2.16.8 [id number] 1985 Unknown [id number] 2.16.8 [id number] 1985 Unknown [id number] 2.16.8 [id number] 1985 Unknown [id number] 2.16.8 [id number] 1985 Unknown [id number] 2.16.84 [id number] 1985 Unknown [id number] 2.16. [id number] 1985 Unknown [id number] 2.16. [id number] 1985 Unknown [id number] 2.16. [id number] 1959 Medicaid [id number] Unknown [id number] 2.16.84 [id number] Unknown [id number] 2.16.84 [id number] Unknown [id number] 2.16.84 [id number] Unknown [id number] 2.16.84 [id number] Social History Date Type Detail Facility Start: 02-03-2019 End: 09-10-2023 Tobacco smoking status [facility] Never smoked tobacco [facility] Start: 02-03-2019 Tobacco use and exposure Smokeless tobacco non-user [facility] Start: 11-06-2020 End: 01-11-2024 Alcohol intake Ex-drinker (finding) [facility] Start: 1985 Sex Assigned At Not on file [facility] Tobacco smoking status No Smoking Status Entered [facility] Start: 12-25-2023 Sex Assigned At Female F [facility] Tobacco smoking status Never [facility] Start: 12-25-2023 History of Social function [facility] Functional Status Date Assessment Result Facility 09-16-2023 Functional Status N/A [facility] 09-10-2023 Functional Status N/A [facility] Clinical Notes 07-14-2020 to 01-11-2024 [...] referral for oral surgery. Message sent to [facility] Kary on January 13 2024 board. Message placed on board 01/11/24 @ [address] [facility] 01-11-2024 Miscellaneous Notes pt was seen in OR 01/08/24 , Stacie Montalvo DMD recommended that the pt be seen by [facility] & follow up. in progess notes it states Referral placed to [facility] but NO referral can be found in pt's chart. please place referral for oral surgery. Message sent to [facility] Kary on January 13 2024 board. Message placed on board 01/11/24 @ 1152 am documented in this encounter [facility] 01-08-2024 History of Present illness Narrative 1605 Discharge instructions reviewed, caregiver states pt on mouth was at home therefore does not wish to wait for prescription documented in this encounter [facility] 01-08-2024 Hospital Discharge instructions Divine Simon RN - 01/08/2024 3:48 PM EDT Images from the original note were not included. Dental abscess The Basics Written by the doctors and editors at [facility] What is a dental abscess? -- A [...] do anything to prevent another dental abscess? [place] your teeth at least 2 times a [...] process is complete. This topic retrieved from [employer] on: Jul 29, 2023. Topic [id number] Version 1.0 Release: 32.2.4 - C32.71 2023 [employer]. and/or its affiliates. All rights reserved. figure 1: Dental abscess Adental abscess is a collection of pus from an infection in the mouth. Dentalabscesses can form in the gums, next to a tooth, or in the root of a tooth. Graphic 183686 Version 1.0 Consumer Information Use and Disclaimer [...] or approved for treating a specific patient. [employer] and its affiliates disclaim any warranty or liability relating to this information or the use thereof.The use of this information is governed by the Terms of Use, available at https://www.Vertra.Ebook Glue/e n/know/hjlamqco-oocoifcvtthmo-n erms. 2023 [employer] and its affiliates and/or licensors. All rights reserved. Copyright 2023 [employer] and/or its affiliates. All rights reserved. PERIOPERATIVE DISCHARGE/HOME-GOING INSTRUCTIONS ANESTHESIA - GENERAL (ADULT) If a problem arises, you may contact your physician by calling [phone] and asking for the resident compression molding machine tender for Dental service. Special Care Needs: Activity: [...] very uncomfortable and can t urinate, call [phone] or come to the emergency room. The day after surgery, a nurse will call to check on you. However, if there are any questions or concerns, please call us at the number listed in the home going instructions. documented in this encounter [facility] 01-08-2024 History and physical note Surgical Attestation: [...] Chandler Rojas KASSIDY Marin 01/08/2024 1:[address] [facility] 01-08-2024 Note Surgical Attestation : I have [...] Yomarysol Marin DDS 01/08/2024 1:[address] [facility] 01-08-2024 History and physical note Surgical [...] 01/08/2024 1:47 PM documented in this encounter [facility] 01-08-2024 Miscellaneous Notes Brief Operative Note PHE OR 3 Vee Sarabia 38 year old female Surgical Contact Serial Number: [id number] Preoperative Diagnosis: ADHD (attention deficit hyperactivity disorder) ([facility]) 10/08/2007 Anorexia 03/16/2008 Cerebral palsy ([facility]) 10/08/2007 Late effect of adverse effect of drug, medical or biological substance 05/02/2009 Mental impairment ([facility]) 10/08/2007 Mental retardation Other bipolar disorder ([facility]) 10/08/2007 Other conduct disorders ([facility]) 10/08/2007 Seizure disorder ([facility]) 10/08/2007 Postoperative Diagnosis: ADHD (attention deficit hyperactivity disorder) ([facility]) 10/08/2007 Anorexia 03/16/2008 Cerebral palsy ([facility]) 10/08/2007 Late effect of adverse effect of drug, medical or biological substance 05/02/2009 Mental impairment ([facility]) 10/08/2007 Mental retardation Other bipolar disorder ([facility]) 10/08/2007 Other conduct disorders ([facility]) 10/08/2007 Seizure disorder ([facility]) 10/08/2007 Procedures: Full mouth X-ray [59591] Full mouth cleaning [28757] Restorations [20587] Surgeon(s): Surgeon(s): Stacie Torres DMD Yoris, [place], DDS Staff: Vice Chair Nurse: Gabriel Hinkle Material Expeditor: Chandler Parham DDS Anesthesia: General Anesthesiologist: Justin [...] year old female Surgical Contact Serial Number: [id number] Preoperative Diagnosis: ADHD (attention deficit hyperactivity disorder) ([facility]) 10/08/2007 Anorexia 03/16/2008 Cerebral palsy ([facility]) 10/08/2007 Late effect of adverse effect of drug, medical or biological substance 05/02/2009 Mental impairment ([facility]) 10/08/2007 Mental retardation Other bipolar disorder ([facility]) 10/08/2007 Other conduct disorders ([facility]) 10/08/2007 Seizure disorder ([facility]) 10/08/2007 Postoperative Diagnosis: ADHD (attention deficit hyperactivity disorder) ([facility]) 10/08/2007 Anorexia 03/16/2008 Cerebral palsy ([facility]) 10/08/2007 Late effect of adverse effect of drug, medical or biological substance 05/02/2009 Mental impairment ([facility]) 10/08/2007 Mental retardation Other bipolar disorder ([facility]) 10/08/2007 Other conduct disorders ([facility]) 10/08/2007 Seizure disorder ([facility]) 10/08/2007 Surgeon: Stacie Torres DMD Student Ministry Pastor Surgeon: Chandler Marin DDS Anesthesia: General- Nasal [...] were discussed with the patient and/or legal sales representative aircraft. The risks, benefits and alternatives were reviewed. Questions regarding blood transfusions were answered. The patient /or the patient s legal sales representative aircraft agree with the plan for transfusion of blood and/or blood components. documented in this encounter [facility] 01-08-2024 Surgery Postoperative evaluation and management note Brief Operative Note PHE OR 3 Vee Sarabia 38 year old female Surgical Contact Serial Number: [id number] Preoperative Diagnosis: ADHD (attention deficit hyperactivity disorder) ([facility]) 10/08/2007 Anorexia 03/16/2008 Cerebral palsy ([facility]) 10/08/2007 Late effect of adverse effect of drug, medical or biological substance 05/02/2009 Mental impairment ([facility]) 10/08/2007 Mental retardation Other bipolar disorder ([facility]) 10/08/2007 Other conduct disorders ([facility]) 10/08/2007 Seizure disorder ([facility]) 10/08/2007 Postoperative Diagnosis: ADHD (attention deficit hyperactivity disorder) ([facility]) 10/08/2007 Anorexia 03/16/2008 Cerebral palsy ([facility]) 10/08/2007 Late effect of adverse effect of drug, medical or biological substance 05/02/2009 Mental impairment ([facility]) 10/08/2007 Mental retardation Other bipolar disorder ([facility]) 10/08/2007 Other conduct disorders ([facility]) 10/08/2007 Seizure disorder ([facility]) 10/08/2007 Procedures: Full mouth X-ray [29400] Full mouth cleaning [81775] Restorations [29565] Surgeon(s): Surgeon(s): Stacie Torres DMD Yoris, [place], DDS Staff: Vice Chair Nurse: Gabriel Hinkle Material Expeditor: Chandler Parham DDS Anesthesia: General Anesthesiologist: Justin [...] by Chandler Marin DDS 01/08/2024 1:[address] [facility] 01-08-2024 Surgery Surgical operation note Operative Note PHE OR 3 Vee Sarabia 38 year old female Surgical Contact Serial Number: [id number] Preoperative Diagnosis: ADHD (attention deficit hyperactivity disorder) ([facility]) 10/08/2007 Anorexia 03/16/2008 Cerebral palsy ([facility]) 10/08/2007 Late effect of adverse effect of drug, medical or biological substance 05/02/2009 Mental impairment ([facility]) 10/08/2007 Mental retardation Other bipolar disorder ([facility]) 10/08/2007 Other conduct disorders ([facility]) 10/08/2007 Seizure disorder ([facility]) 10/08/2007 Postoperative Diagnosis: ADHD (attention deficit hyperactivity disorder) ([facility]) 10/08/2007 Anorexia 03/16/2008 Cerebral palsy ([facility]) 10/08/2007 Late effect of adverse effect of drug, medical or biological substance 05/02/2009 Mental impairment ([facility]) 10/08/2007 Mental retardation Other bipolar disorder ([facility]) 10/08/2007 Other conduct disorders ([facility]) 10/08/2007 Seizure disorder ([facility]) 10/08/2007 Surgeon: Stacie Torres DMD Student Ministry Pastor Surgeon: Chandler Marin DDS Anesthesia: General- Nasal [...] every morning. Dictated by: Chandler Marin DDS:Dr. Torers was present for the critical portions of the procedure. Chandler Marin DDS 01/08/2024 1:53 PM [facility] [employer] Phone: 01-08-2024 Progress note Formatting of t his note is different from the original. Blood Attestation: ATTESTATION OF INFORMED CONSENT FOR BLOOD: The transfusion of blood and/or blood components were discussed with the patient and/or legal sales representative aircraft. The risks, benefits and alternatives were reviewed. Questions regarding blood transfusions were answered. The patient /or the patient s legal sales representative aircraft agree with the plan for transfusion of blood and/or blood components. [facility] [employer] Phone: 01-08-2024 History of Present illness Narrative ----- Monday, January 08, 2024 at 3:45:54 PM ----- ----- Provider: Jarrett Torres DMD -- Clinic: [facility] ----- Pt was seen in OR under general anesthesia. comp exam, FMX and 4 quads SRP completed. Topical fluoride applied. #8 MIDLF broken tooth restored with composite. #12,13,14 present with non- restorable cervical lesions interproximally. Due to pt. usp Fosamax usage, recommend this patient be seen by [facility] for care and follow ups. Referral placed to [facility] See note attached. Operative Note PHE OR 3 Vee Sarabia 38 year old female Surgical Contact Serial Number: [id number] Preoperative Diagnosis: ADHD (attention deficit hyperactivity disorder) ([facility]) 10/08/2007 Anorexia 03/16/2008 Cerebral palsy ([facility]) 10/08/2007 Late effect of adverse effect of drug, medical or biological substance 05/02/2009 Mental impairment ([facility]) 10/08/2007 Mental retardation Other bipolar disorder ([facility]) 10/08/2007 Other conduct disorders ([facility]) 10/08/2007 Seizure disorder ([facility]) 10/08/2007 Postoperative Diagnosis: ADHD (attention deficit hyperactivity disorder) ([facility]) 10/08/2007 Anorexia 03/16/2008 Cerebral palsy ([facility]) 10/08/2007 Late effect of adverse effect of drug, medical or biological substance 05/02/2009 Mental impairment ([facility]) 10/08/2007 Mental retardation Other bipolar disorder ([facility]) 10/08/2007 Other conduct disorders ([facility]) 10/08/2007 Seizure disorder ([facility]) 10/08/2007 Surgeon: Stacie Torres DMD Student Ministry Pastor Surgeon: Chandler Marin DDS Anesthesia: General- Nasal [...] of surgery: Stable documented in this encounter [facility] 12-28-2023 Telephone encounter Note Anesthesia consent scanned into [employer]. [facility] 12-28-2023 Miscellaneous Notes Anesthesia consent scanned into [employer]. documented in this encounter [facility] 12-25-2023 Instructions Víctor Goldberg, FORENSIC ENGINEER-HUMAN RESOURCES OPERATIONS SPECIALIST - 12/25/2023 10:36 AM EDT On the [...] for pain Please hold all Vitamin E, [place] 3, fish oil and herbal supplements for 1 week prior to surgery Please hold Naltrexone 3 days prior to surgery. Last dose on 01/03. Please use this CHECKLIST to prepare for your surgery/procedure: ? Assume that any lab or testing done during your Pre-admission testing appointment is within normal limits unless otherwise contacted. ? [facility] one business day prior to surgery for [...] your Preparing for Your Surgery/Procedure booklet or [email or web address] if you have questions. Contact the Pre-Admission Testing department at [phone] or your surgeon's office with any questions [...] stay with you after surgery. Please call [facility] Social Work if you need transportation assistance or have concerns about going home [phone]. ? PEDIATRIC or ADOLESCENTS: Parents or a [...] signs of dehydration. Thank you for choosing [facility]; it is our pleasure to care for you documented in this encounter [facility] 12-25-2023 Instructions Víctor Goldberg APRN-CNP - 12/25/2023 [...] for pain Please hold all Vitamin E, [place] 3, fish oil and herbal supplements for 1 week prior to surgery Please hold Naltrexone 3 days prior to surgery. Last dose on 01/03. Please use this CHECKLIST to prepare for your surgery/procedure: ? Assume that any lab or testing done during your Pre-admission testing appointment is within normal limits unless otherwise contacted. ? Expect a call from [facility] one business day prior to surgery for [...] your Preparing for Your Surgery/Procedure booklet or [email or web address] if you have questions. Contact the Pre-Admission Testing department at [phone] or your surgeon's office with any questions [...] stay with you after surgery. Please call [employer] if you need transportation assistance or have concerns about going home [phone]. ? PEDIATRIC or ADOLESCENTS: Parents or a [...] signs of dehydration. Thank you for choosing [facility]; it is our pleasure to care for you documented in this encounter [facility] 12-25-2023 History of Present illness Narrative Images from the original note were not included. Pre-Admission Testing Consultation Vee Sarabia, [id number] 38 year old Female 12/26/[address] [facility] by Dr. Almaraz due to significant PMH of caries. [facility] Triage Risk Score Total Score: 2 2 Patient is on more than 2 antihypertension medications. Vee Sarbaia is scheduled for DENTAL RESTORATIONS on 01/08/2024. Pre-Op diagnosis of: Pre-Op Diagnosis Codes: * Caries [K02.9] HISTORY OF PRESENT ILLNESS: Patient presents today with a history of caries. Patient is here for pre-admission optimization and education prior to surgery. She is accompanied with her caregiver at [place], Dora Saucedo, who is helping review the patient's current and past medical history. Gabriela Rodriguez (mother--phone-- [phone]) is legal guardian. RECENT ILLNESS: Serious illness [...] DENTAL RESTORATIONS; Surgeon: Fernando Kurtz DDS; Location: [facility] [place]; Service: Dental DENTAL RESTORATIONS N/A 11/05/2020 Procedure: DENTAL RESTORATIONS; Surgeon: Dru Friedman DDS; Location: [facility] [place]; Service: Dental Past Medical History and Review of Systems Pulmonary - negative ROS Dental Comment: Caries--s/p dental restorations x2 Endo (+) hypothyroidism Comment: Hyponatremia cigar bander Comment: LMP: unknown Neuro/Psych (+) seizures, cerebral [...] 5:27 PM 12/26/[address] [facility] 12-25-2023 History of Present illness Narrative Images from the original note were not included. Pre-Admission Testing Consultation Vee Sarabia, [id number] 38 year old Female 12/26/[address] [facility] by Dr. Almaraz due to significant PMH of caries. [facility] Triage Risk Score Total Score: 2 [...] She is accompanied with her caregiver at [place], Dora Saucedo, who is helping review the patient's current and past medical history. Gabriela Rodriguez (mother--phone-- [phone]) is legal guardian. RECENT ILLNESS: Serious illness [...] DENTAL RESTORATIONS; Surgeon: Fernando Kurtz DDS; Location: [facility] [place]; Service: Dental DENTAL RESTORATIONS N/A 11/05/2020 Procedure: DENTAL RESTORATIONS; Surgeon: Dru Friedman DDS; Location: [facility] [place]; Service: Dental Past Medical History and Review of Systems Pulmonary - negative ROS Dental Comment: Caries--s/p dental restorations x2 Endo (+) hypothyroidism Comment: Hyponatremia cigar bander Comment: LMP: unknown Neuro/Psych (+) seizures, cerebral [...] 5:27 PM 12/26/[address] [facility] 12-25-2023 Note Pre-Admission Testin g Consultation Vee Sarabia, [id number] 38 year old Female 12/26/[address] [facility] by Dr. Almaraz due to significant PMH of caries. [facility] Triage Risk Score Total Score: 2 [...] She is accompanied with her caregiver at [place], Dora Saucedo, who is helping review the patient's current and past medical history. Gabriela Rodriguez (mother--phone-- [phone]) is legal guardian. RECENT ILLNESS: Serious illness [...] DENTAL RESTORATIONS; Surgeon: Fernando Kurtz DDS; Location: [facility] [place]; Service: Dental DENTAL RESTORATIONS N/A 11/05/2020 Procedure: DENTAL RESTORATIONS; Surgeon: Dru Friedman DDS; Location: [facility] [place]; Service: Dental Past Medical History and Review of Systems Pulmonary - negative ROS Dental Comment: Caries--s/p dental restorations x2 Endo (+) hypothyroidism Comment: Hyponatremia cigar bander Comment: LMP: unknown Neuro/Psych (+) seizures, cerebral [...] MG t (more content not included)... [facility] 09-17-2023 Note [id number] [facility] 09-16-2023 Hospital Discharge instructions Patient Education 09/16/2023 08:49:14 Gastritis, Adult, Ayir-zf-Tzub Gastritis, Adult Gastritis is irritation and swelling [...] Follow these instructions at home: Medicines Take owlh-wwz-zswtuut and prescription medicines only as told by [...] provider. Document Revised: 09/07/2021 Document Reviewed: 09/07/2021 [employer] Patient Education 2022 [employer]. 09/16/2023 08:49:01 Endoscopy, Care After Procedure [facility] Endoscopy Care After Procedure Please [...] Document Re-Released: 10/26/2006 ExitCare Patient Information 2009 [employer]. Follow Up Care 09/10/2023 09:54:49 With:Jessee Nina Address: [address] [place] [address], [address] [place] [address]- [phone] [facility] (1) When:1 to 2 weeks Comments:Call for any problems. [facility] 09-16-2023 Note Endoscopy Care After [...] Document Re-Released: 10/26/2006 ExitCare? Patient Information ?2009 [employer]. Infectious Disease Gastritis, Adult Gastritis is irritation [...] these instructions at home: Medicines ? Take zsbv-fio-eimenbx and prescription medicines only as told by [...] ask your do (more content not included)... [facility] 07-22-2022 History of Present illness Narrative [...] Legal Guardian is Gabriela Rodriguez( Mother ): [phone] Dad Bhargav Sarabia [phone] Contact information; [facility] [phone] Extension# [phone] Next Visit: OR ----- Signed on Friday, July 22, 2022 at 12:31:54 PM ----- ----- Provider: [id number] Chinyere Jain DDS -- Clinic: [place] ----- documented in this encounter [facility] 07-14-2020 Note Patient Outreach ([place] VAMN) VEE SARABIA ([id number]) 1985 F NFR Date Time Provider Department 07/14/20 PUMA SPEAR During your visit today, we recorded the following information about you: Allergies As of Date: 07/14/2020 Noted Allergy Reaction SEASONAL ALLERGIES 11/08/2010 16 - Unknown Date Reviewed: 07/05/2019 Reviewed by: Clover Ng Ma - Fully Assessed Order(s):SARS-COVID VACCINE 1ST DOSE APPT [[id number]] Order #: [id number] FUTURE Prescriptions as of 07/14/2020 Sig: FLUTICASONE [...] Encounter Status:Closed by GURDEEP DELCIDUSER on 07/17/20 [facility] Evaluation + Plan note No data available for this section [facility] Evaluation + Plan note Future Appointments Appointment Date:09/16/2023 08:00:00 AM Scheduled Provider: Location:[facility] Appointment Type:Surgery FT Future Scheduled TestsNM Gastric Emptying Study 09/10/23 [facility] Evaluation + Plan note Future Appointments Appointment Date:09/23/2023 10:30:00 AM Scheduled Provider: Location:[facility] Appointment Type:NM Gastric Emptying Study (FT) Future Scheduled TestsNM Gastric Emptying Study 09/23/23 [facility] Evaluation note Diagnosis Caries- Primary [...] instructions No data available for this section [facility] data available for this section [facility] Summary Purpose Family History No [...] section and content) DATE CREATED AUTHOR 06/15/2021 [facility] DATE CREATED AUTHOR AUTHOR'S ORGANIZ ATION 10/01/2022 [facility] DATE CREATED AUTHOR AUTHOR'S ORGANIZ ATION 09/28/2023 [facility] DATE CREATED AUTHOR AUTHOR'S ORGANIZ ATION 01/06/2024 [facility] EPIC DATE CREATED AUTHOR AUTHOR'S ORGANIZ ATION 01/11/[address] [facility] Care Teams (unrecognized sec tion and content) Wirer Relationship Specialty Start Date End Date Rm Goldman DDS [address] [place] [address] Resident Dentistry 02/21/20 Mony Adler, GONZALES-HUMAN RESOURCES OPERATIONS SPECIALIST [address] [place] [address] [place] [address] MOTOR AND GENERATOR BRUSH MAKER Anesthesiology 11/16/20 Wirer Relationship Specialty Start Date End Date SusiRm tavarezKASSIDY [address] [place] [address] Resident Dentistry 02/21/20 Mony Adler APRN-HUMAN RESOURCES OPERATIONS SPECIALIST [address] [place] [address] [place] [address] MOTOR AND GENERATOR BRUSH MAKER Anesthesiology 11/16/20 Wire[employer] Relationship Specialty Start Date End Date Rm GoldmanKASSIDY [address] [place] [address] Resident Dentistry 02/21/20 Mony Adler APRN-CNP [address] [place] [address] [place] [address] MOTOR AND GENERATOR BRUSH MAKER Anesthesiology 11/16/20 Wire[employer] Relationship Specialty Start Date End Date Rm GoldmanKASSIDY [address] [place] [address] Resident Dentistry 02/21/20 Mony Adler APRN-HUMAN RESOURCES OPERATIONS SPECIALIST [address] [place] [address] [place] [address] MOTOR AND GENERATOR BRUSH MAKER Anesthesiology 11/16/20 Wirer Relationship Specialty Start Date End Date Rm GoldmanKASSIDY [address] [place] [id number] Resident Dentistry 02/21/20 Mony Adler APRN-CNP [address] [place] [address] [place] [address] [employer] Anesthesiology 11/16/20 Wirer Relationship Specialty Start Date End Date Rm Goldman [address] [address] Resident Dentistry 02/21/20 Mony Adler APRN-CNP [address] [place] [address] [place] [address] [employer] Anesthesiology 11/16/20 Wirer Relationship Specialty Start Date End Date Rm Goldman [address] [address] Resident Dentistry 02/21/20 Mony Adler APRN-CNP [address] [place] [address] [place] [address] [employer] Anesthesiology 11/16/20 Wirer Relationship Specialty Start Date End Date Rm Goldman [address] [address] Resident Dentistry 02/21/20 Mony Adler APRN-CNP [address] [place] [address] [place] [address] [employer] Anesthesiology 11/16/20 Wirer Relationship Specialty Start Date End Date Rm Goldman [address] [address] Resident Dentistry 02/21/20 Mony Adler APRN-CNP [address] [place] [address] [place] [address] [employer] Anesthesiology 11/16/20 Reason for Visit (unrecogniz ed section and content) Reason Onset Date Comments Pre-surgical Evaluation 01/06/2024 DD adult dental restorations 01/07 under [facility] at [place]. PAT completed - consents obtained. PAT RN spoke to Cassidy, confirmed NPO except water only until 0900 (Cassidy stated pt does not like and will not drink water), [place] address, and 1100 arrival time Specialty Diagnoses / Procedures Referred By Ebony snyder Referred To Contact Ambulatory Surgery Diagnoses Caries Caries [[email or web address]] Procedures ANESTHESIA, INTRAORAL PROC, W/BX; NOS UNLISTED PROCEDURE, DENTOALVEOLAR STRUCTURES DENTAL RESTORATIONS Stacie Torres DMD [address] [place] [address] [facility] [employer] [facility] [address] [place] [address] Phone: [phone] Referral ID Status Reason Start Date Expiration Date Visits Re quested Visits Authorized [id number] 3 Reason Onset Date Comments Referral [...] BE BASED ON THE PRIMARY CLINICAL RECORDS. [email or web address] provides no warranty or guarantee of the accuracy or completeness of information in this document.
== END 2024-02-03 07:41 | disposition home or self-care (01) ==
LOC: CT 07:41
PROVIDERS: PCP Family Medicine; Visit Provider Family Medicine
DX: R51.9 Headache, unspecified (principal); R56.9 Unspecified convulsions; R46.89 Other symptoms and signs involving appearance and behavior
CPT/HCPCS: 70450

== ENCOUNTER 2024-02-21 14:07 | Emergency (ER) | payer MEDICAID, SELFPAY ==
[2024-02-21 14:08] VITALS: BP 160/90; PULSE 86; TEMP 36.6; O2SAT 99; BMI 29.3
--- OUTSIDE RECORDS SUMMARY | 2024-02-21 14:14 | XMS_ITS | CCD ---
Author Organization [facility] CliniSynm Care Team Providers Care Coffee Maker Name Role Phone Rm Goldman DDS Unavailable [...] Attending Unavailable BALJIT PINEDO Primary Care Physician [phone] Mocarlyleli, Mohamad A. Admitting Unavailable Mouchli, Mohamad [...] Medication Allergies] Propensity to adverse reactions (disorder) [facility] Repository (9 sources) Diazepam; Translations: [DIAZEPAM] Propensity to adverse reactions to drug 4 [facility] (9 sources) diphenhydrAMINE; Translations: [DIPHENHYDRAMINE ] Drug Allergy 4 [facility] (9 sources) trichloroacetald ehyde; Translations: [CHLORAL HYDRATE] Drug Allergy 4 [facility] Medications Current Medications Medication Drug Class(es) Dates Sig (Normalized) Sig (Original) Calcium Carbonate (13 sources) Start: 09-10-2023 Maalox Antacid Barrier mg, [...] Care Provider) chlorhexidine gluconate 1.2 mg/ml mouthwash (14 sources) Start: 01-08-2024 End: 01-08-2024 take 15 [...] Status: Ordered cholecalciferol 0.025 mg oral tablet (10 sources) Vitamin D Cholecalciferol (VITAMIN D) 1000 units TABS Take by mouth. Active cloNIDine hydrochloride 0.1 mg oral tablet (8 sources) Central alpha-2 Adrenergic Agonist take 1 tablet by mouth twice daily cloNIDine (CATAPRES) 0.1 MG tablet Take 0.1 mg by mouth 2 times daily. Active famotidine 20 mg oral tablet (18 sources) Histamine-2 Receptor Antagonist Start: 09-10-19 take [...] 0 Start Date: 11/29/09 Status: Ordered Levetiracetam (16 sources) Start: 09-10-2023 levetiracetam Refills(s) 0 Start Date: 09/10/23 Status: Ordered Start: 11-29-2009 levetiracetam Oral, BID, Refills(s) 0, Seizure Start Date: 11/29/09 Status: Ordered Start: 11-29-2009 levetiracetam Refills(s) 0 Start Date: 11/29/09 Status: Ordered take 1 tablet by erica th twice daily levETIRAcetam (KEPPRA) 500 MG tablet Take 500 mg by mouth 2 times daily. Active levothyroxine sodium 0.075 mg oral tablet (15 sources) l-Thyroxine take 1 tablet by mouth once daily in the evening levothyroxine (SYNTHROID) 75 MCG tablet Take 75 mcg by mouth daily. Take at 8 pm Active End: 01-08-2024 take 1 tablet by mouth once daily levothyroxine (SYNTHROID) 112 MCG tablet Take 112 mcg by mouth daily. 01/08/2024 Discontinued (Discontinued by another Health Care Provider) linaclotide 0.29 mg oral capsule (13 sources) Guanylate Cyclase-C Agonist Start: 09-10-2023 take 1 ug by mouth once daily Linzess 290 mcg oral capsule mcg cap(s), Oral, Daily, Refills(s) 0 Start Date: 09/10/23 Status: Ordered Start: 10-17-2020 take 1 capsule by [facility] once daily Linzess 145 MCG CAPS capsule Take 145 mcg by mouth daily. 10/17/2020 Active Loratadine (15 sources) Start: 11-29-2009 loratadine 10 mg, Refills(s) 0 Start Date: 11/29/09 Status: Ordered take 1 tablet by mouth once lashell y loratadine (CLARITIN) 10 MG tablet Take 10 mg by mouth daily. Active lurasidone (7 sources) Atypical Antipsychotic Start: 09-10-2023 lurasid one Oral, Daily, Refills(s) 0 Start Date: 09/10/23 Status: Ordered take 1 tablet by mouth twice mackenzie ly lurasidone (LATUDA) 40 MG tablet Take 40 mg by mouth 2 times a day. Active 1 ml medroxyPROGESTERone acetate 150 mg/ml injection (8 sources) Progestin medroxyPROGESTER one (Depo-Provera) 150 MG/ML injection Inject 150 mg into the muscle once. Active montelukast (13 sources) Leukotriene Receptor Antagonist Start: 09-10-19 24 montelukast Daily, Refills(s) 0 Start Date: 09/10/23 Status: Ordered take 1 tablet by mouth once lashell y montelukast (SINGULAIR) 10 MG tablet Take 10 mg by mouth daily. Active Naltrexone (15 sources) Opioid Antagonist Start: 11-29-2009 naltrexone R efills(s) 0 Start Date: 11/29/09 Status: Ordered take 2 tablets by mouth twice da dany naltrexone 50 MG tablet Indications: take 2 tablets twice a day Take 50 mg by mouth daily Indications: take 2 tablets twice a day. Active 2 ml ondansetron 2 mg/ml injection (12 sources) Serotonin-3 Receptor Antagonist Start: 01-08-2024 End: [...] pantoprazole 40 mg extended release oral tablet (7 sources) Proton Pump Inhibitor Start: 09-10-2023 pantoprazole 40 mg, Oral, Refills(s) 0, Control of stomach acid Start Date: 09/10/23 Status: Ordered Start: 09-10-2023 pantoprazole R efills(s) 0 Start Date: 09/10/23 Status: Ordered take 40 mg by mouth once daily p antoprazole (Protonix) 40 MG PACK oral packet Take 40 mg by mouth daily. Active pregabalin (13 sources) Start: 09-10-2023 pregabalin Ora l, TID, Refills(s) 0, Neuropathy Start Date: 09/10/23 Status: Ordered Start: 09-10-2023 pregabalin Ora l, Refills(s) 0 Start Date: 09/10/23 Status: Ordered take 1 capsule by mo [facility] three times daily pregabalin (LYRICA) [...] (Discontinued by another Health Care Provider) sennosides, DETENTION (13 sources) Start: 09-10-2023 senna Oral, BI D, [...] 2 tab hs Active VITAMIN D ORAL (10 sources) take 1000 [IU] by mo uth [...] 07-29-2013 Chronic Disorders of teeth and jaw (20 sources) Dental caries; Translations: [Dental caries, unspecified] Onset: 9 10-12-2020 Episodic Disorders usually diagnosed in infancy, [...] 07-29-2013 Chronic Other aftercare (5 sources) Other tank terminal gauger (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; Translations: [OTH [facility] CURRENT DRUG THERAPY] Onset: 2 Episodic Other [...] (5 sources) Seasonal allergy 11-29-2009 Chronic Paralysis (15 sources) Spastic cerebral palsy; 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] Onset: 3 02-03-2019 Chronic Residual codes; unclassified (1 source) Early satiety; Translations: [Early satiety] Onset: 4 Episodic Thyroid disorders (1 source) Hypothyroidism, unspecified; Translations: [HYPOTHYROIDISM UNSPECIFIED] Onset: 3 Chronic Unclassified (5 sources) Bipolar (qualifier value) 08-26-2010 Past or Other Problems Problem Classification Problem Date Documented Date Episodic/Chronic Other aftercare (9 sources) Surgical follow-up; Translations: [Encounter for follow-up examination after completed treatment for conditions other than malignant neoplasm] Onset: 10-04-2002 07-22-2022 Episodic Other connective tissue disease (9 sources) Finding of thigh; Translations: [Other specified disorders of muscle] Onset: 12-09-2010 07-22-2022 Episodic Other nervous system disorders (9 sources) Maceo gait; Translations: [Other abnormalities of gait and mobility] Onset: 12-09-2010 07-22-2022 Episodic Results Test Name Value Interpretation Reference Range Facility Telephone Encounteron 2023 Ring Barker Operator Authentication Interface Message Text pt was seen in OR 01/08/24 , Stacie Montalvo DMD recommended that the pt be seen by [facility] fro care AND follow up. in progess notes it states Referral placed to [facility] but NO referral can be found in pt's chart. please place referral for oral surgery. Message sent to [facility] Kary on January 13 2024 board. Message placed on board 01/11/24 @ 1152 am Normal [facility] Anesthesia Postprocedure Felicia luationon 01-08-2024 Ring Barker Operator Authentication Interface Message Text Anesthesia Postoperative Assessment: [...] EVENTS: No notable events documented. Normal [facility] Anesthesia Preprocedure Eval uationon 01-08-2024 Ring Barker Operator Authentication Interface Message Text ASA: 3 No [...] previous ECGs available Confirmed by LORENZA PARKS ([id number]) on 12/28/2023 8:11:02 PM GI/Hepatic/Renal Comment: - S/P cholecystectomy 2009 Heme/Other - negative ROS Other ROS: - Hx. Of dental restorations - Seasonal allergies - Gabriela Rodriguez (mother--phone-- [phone]) is legal guardian Physical Exam Airway Mallampati: [...] alternatives discussed pre-op (Anesthesia consent scanned into [facility].) Questions answered / anesthesia plan accepted (Anesthesia consent scanned into [facility].) Past medical history, surgical history, allergies, and medications reviewed and Pertinent laboratory tests, EKG, imaging, and consults reviewed Attestation: Anesthesia options were discussed with the patient and/or legal administrative representative. The risks, benefits and alternatives were reviewed. Questions regarding anesthesia were answered. Patient and/or legal administrative representative knows such anesthetics and procedures may be performed by Resident physicians, Certified Anesthesiologist Assistants, or Certified Nurse Anesthetists under the supervision of a physician. The patient /or the patient's legal administrative representative agree with the plan for anesthesia. Comment: Anesthesia consent scanned into [facility]. MHPATFORM Normal [facility] Anesthesia Transfer Of [facility] [place] n 01-08-2024 Ring Barker Operator Authentication Interface Message Text Patient taken to [...] DENTAL RESTORATIONS; Surgeon: Fernando Kurtz DDS; Location: [facility] Surgery [place]; Service: Dental DENTAL RESTORATIONS (11/05/2020) Procedure: DENTAL RESTORATIONS; Surgeon: Dru Friedman DDS; Location: [facility] Surgery [place]; Service: Dental Allergies: Benadryl [diphenhydramine], Chloral hydrate, and Valium [diazepam] Basic Operating Room Facts: Surgeon(s): Stacie Torres DMD Anesthesiologist: Justin Shin MD CAA: Eduarda James CAA News Reel Cameraman: Dania Melara MD DENTAL RESTORATIONS Intraoperative Events: [...] Secured via: Taped 01/08/24 1433 Site Assessment WNL 01/08/24 1433 All non-working IVs have been [...] was received. Justin Shin MD Normal [facility] Blood Attestationon 01-08-20 Ring Barker Operator Authentication Interface Message Text Blood Attestation: ATTESTATION OF INFORMED CONSENT FOR BLOOD: The transfusion of blood and/or blood components were discussed with the patient and/or legal administrative representative. The risks, benefits and alternatives were reviewed. Questions regarding blood transfusions were answered. The patient /or the patient's legal administrative representative agree with the plan for transfusion of blood and/or blood components. Normal [facility] Brief Operative Noteon 01-07 Ring Barker Operator Authentication Interface Message Text Brief Operative Note [facility] OR 3 Vee Sarabia 38 year old female Surgical Contact Serial Number: [id number] Preoperative Diagnosis: ADHD (attention deficit hyperactivity disorder) ([facility]) 10/08/2007 Anorexia 03/16/2008 Cerebral palsy ([facility]) 10/08/2007 Late effect of adverse effect of drug, medical or biological substance 05/02/2009 Mental impairment ([facility]) 10/08/2007 Mental retardation Other bipolar disorder ([facility]) 10/08/2007 Other conduct disorders ([facility]) 10/08/2007 Seizure disorder ([facility]) 10/08/2007 Postoperative Diagnosis: ADHD (attention deficit hyperactivity disorder) ([facility]) 10/08/2007 Anorexia 03/16/2008 Cerebral palsy ([facility]) 10/08/2007 Late effect of adverse effect of drug, medical or biological substance 05/02/2009 Mental impairment ([facility]) 10/08/2007 Mental retardation Other bipolar disorder ([facility]) 10/08/2007 Other conduct disorders ([facility]) 10/08/2007 Seizure disorder ([facility]) 10/08/2007 Procedures: Full mouth X-ray [04985] Full mouth cleaning [02438] Restorations [[id number]] Surgeon(s): Surgeon(s): Stacie Torres DMD Yoris, Orlando, DDS Staff: Admissions Nurse Nurse: Gabriel Hinkle Pharmacist'S Aide: Chandler Parham DDS Anesthesia: General Anesthesiologist: Justin [...] Marin DDS 01/08/2024 1:48 PM Normal [facility] HCG, QUANTITATIVEon 01-08-20 24 [facility] Interpretation and review of laboratory results Normal [facility] HCG < 0.6 Normal <5.[address] [facility] Comment on above: Performed By: #### H CG #### [facility] [id number] [place], [address] OP Noteon 01-08-2024 Ring Barker Operator Authentication Interface Message Text Operative Note [facility] OR 3 Vee Sarabia 38 year old female Surgical Contact Serial Number: [id number] Preoperative Diagnosis: ADHD (attention deficit hyperactivity disorder) ([facility]) 10/08/2007 Anorexia 03/16/2008 Cerebral palsy ([facility]) 10/08/2007 Late effect of adverse effect of drug, medical or biological substance 05/02/2009 Mental impairment ([facility]) 10/08/2007 Mental retardation Other bipolar disorder ([facility]) 10/08/2007 Other conduct disorders ([facility]) 10/08/2007 Seizure disorder ([facility]) 10/08/2007 Postoperative Diagnosis: ADHD (attention deficit hyperactivity disorder) ([facility]) 10/08/2007 Anorexia 03/16/2008 Cerebral palsy ([facility]) 10/08/2007 Late effect of adverse effect of drug, medical or biological substance 05/02/2009 Mental impairment ([facility]) 10/08/2007 Mental retardation Other bipolar disorder ([facility]) 10/08/2007 Other conduct disorders ([facility]) 10/08/2007 Seizure disorder ([facility]) 10/08/2007 Surgeon: Stacie Torres DMD Photo Cartographer Surgeon: Chandler Marin DDS Anesthesia: General- Nasal [...] Marin DDS 01/08/2024 1:53 PM Normal [facility] Progress Noteson 01-08-2024 Ring Barker Operator Authentication Interface Message Text [id number] Discharge instructions reviewed, caregiver states pt on mouth was at home therefore does not wish to wait for prescription Normal [facility] Ring Barker Operator Authentication Interface Message Text ----- Monday, January 08, 2024 at 3:45:54 PM ----- ----- Provider: Jarrett Torres DMD -- Clinic: [facility] ----- Pt was seen in OR under general anesthesia. comp exam, FMX and 4 quads SRP completed. Topical fluoride applied. #8 MIDLF broken tooth restored with composite. #12,13,14 present with non- restorable cervical lesions interproximally. 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 Referral placed to [facility] See note attached. Operative Note [facility] OR 3 Vee Sarabia 38 year old female Surgical Contact Serial Number: [id number] Preoperative Diagnosis: ADHD (attention deficit hyperactivity disorder) ([facility]) 10/08/2007 Anorexia 03/16/2008 Cerebral palsy ([facility]) 10/08/2007 Late effect of adverse effect of drug, medical or biological substance 05/02/2009 Mental impairment ([facility]) 10/08/2007 Mental retardation Other bipolar disorder ([facility]) 10/08/2007 Other conduct disorders ([facility]) 10/08/2007 Seizure disorder ([facility]) 10/08/2007 Postoperative Diagnosis: ADHD (attention deficit hyperactivity disorder) ([facility]) 10/08/2007 Anorexia 03/16/2008 Cerebral palsy ([facility]) 10/08/2007 Late effect of adverse effect of drug, medical or biological substance 05/02/2009 Mental impairment ([facility]) 10/08/2007 Mental retardation Other bipolar disorder ([facility]) 10/08/2007 Other conduct disorders ([facility]) 10/08/2007 Seizure disorder ([facility]) 10/08/2007 Surgeon: Stacie Torres DMD Photo Cartographer Surgeon: Chandler Marin DDS Anesthesia: General- Nasal [...] at end of surgery: Stable Normal [facility] Anesthesia Preprocedure Eval uationon 01-07-2024 Ring Barker Operator Authentication Interface Message Text ASA: 3 Past [...] previous ECGs available Confirmed by LORENZA PARKS ([id number]) on 12/28/2023 8:11:02 PM GI/Hepatic/Renal Comment: - S/P cholecystectomy 2009 Heme/Other Other ROS: - Hx. Of dental restorations - Seasonal allergies - Gabriela Rodriguez (mother--phone-- [phone]) is legal guardian Physical Exam Airway Dental Dentition: dental caries. Pulmonary Cardiovascular Neuro Disoriented and motor deficit Comment: Cerebral palsy Plan Anesthesia plan: general; (ETT) Anesthesia risks / alternatives discussed pre-op (Anesthesia consent scanned into [facility].) Questions answered / anesthesia plan accepted (Anesthesia consent scanned into [facility].) Past medical history, surgical history, allergies, and medications reviewed and Pertinent laboratory tests, EKG, imaging, and consults reviewed Attestation: Comment: Anesthesia consent scanned into [facility]. MHPATFORM Normal [facility] EKG 12 LEAD - PERFORMon 12-16 Diagnosis Normal sinus rhythm Nonspecific T wave abnormality Abnormal ECG No previous ECGs available Confirmed by LORENZA PARKS ([id number]) on 12/28/2023 8:11:02 PM [facility] P wave Atrium by EKG 75 BPM [facility] P wave axis 23 degrees [facility] P-R Interval 130 ms [facility] Q-T interval 390 ms [facility] Q-T interval corrected 435 ms [facility] QRS axis 42 degrees [facility] QRS duration 86 ms [facility] T wave axis 16 degrees [facility] Telephone Encounteron 2023 Ring Barker Operator Authentication Interface Message Text Anesthesia consent scanned into [facility]. Normal [facility] BASIC METABOLIC PANELon 08 Anion gap [Moles/Vol] 13 mmol/L Normal 10-20 [facility] Comment on above: Performed By: #### C H8 #### [facility] [address] [place] [address], Calcium [Mass/Vol] 9.0 mg/dL Normal 8.6-10.3 [facility] Comment on above: Performed By: #### C H8 #### [facility] [address] [place] [address], Chloride [Moles/Vol] 102 mmol/L Normal 98-107 [facility] Comment on above: Performed By: #### C H8 #### [facility] [address] [place] [address], CO2 [Moles/Vol] 23 mmol/L Normal 21-31 [facility] Comment on above: Performed By: #### C H8 #### [facility] [address] [place] [address], Creatinine [Mass/Vol] 0.36 mg/dL Low 0.60-1.20 [facility] Comment on above: Performed By: #### C H8 #### [facility] [address] [place] [address], ESTIMATED GFR (CKD-EPI) 133 mL/min/1.73sqm Normal >=60 [facility] Comment on above: Result Comment: 2020 [...] Inclusion of Race in Diagnosing Kidney Disease. [place] Journal of Kidney Diseases 202;79(2):268-88.e1. 2. N Engl J Med 1 Vol. 385 Issue 19 Pages 1626-0392 Performed By: #### C H8 #### [facility] [address] [place] [address], Glucose [Mass/Vol] 85 mg/dL Normal 74-[address] [facility] Comment on above: Performed By: #### C H8 #### [facility] [address] [place], [place], Potassium [Moles/Vol] 4.4 mmol/L Normal 3.5-5.0 [facility] Comment on above: Performed By: #### C H8 #### [facility] [address] [place] [address], Sodium [Moles/Vol] 134 mmol/L Low 136-145 [facility] Comment on above: Performed By: #### C H8 #### [facility] [address] [place] [address], Urea nitrogen [Mass/Vol] 7 mg/dL Normal 7-[address] [facility] Comment on above: Performed By: #### C H8 #### [facility] [address] [place] [address], Basic metabolic 2000 panelon 12-25-2023 Anion gap [Moles/Vol] 13 mmol/L 10 - [address] [facility] Cal[facility] [Mass/Vol] 9.0 mg/dL 8.6 - 10. [...] clinical presentation. Reference: 1. Yonny C, Rich Cerda, Melissa ATKINSON, et al.. A Unifying Approach for GFR Estimation: Recommendations of the NKF-ASN Task Force on Reassessing the Inclusion of Race in Diagnosing Kidney Disease. [place] Journal of Kidney Diseases 202;79(2):268-88.e1. 2. N Engl J Med 2020 Vol. 385 Issue 19 Pages 6770-6419 Glucose [Mass/Vol] 85 mg/dL 74 - 109 [...] on above: Performed By: #### C BC ####[facility] [id number] [place], [place], Hematocrit (Bld) [Volume fraction] 33.5 % Low 36.0-46.0 [facility] Comment on above: Performed By: #### C BC ####[facility] [id number] [place], [place], Hemoglobin (Bld) [Mass/Vol] 10.8 g/dL Low 12.0-15.0 [facility] Comment on above: Performed By: #### C BC ####[facility] [id number] [place], [place], MCH (RBC) [Entitic mass] 31.1 pg Normal 26.0-34.[address] [facility] Comment on above: Performed By: #### C BC ####[facility] [id number] [place], [place], MCHC (RBC) [Mass/Vol] 32.3 g/dL Normal 32.0-35.9 [facility] Comment on above: Performed By: #### C BC ####[facility] [id number] [place], [place], MCV (RBC) [Entitic vol] 96 fL Normal 80-[address] [facility] Comment on above: Performed By: #### C BC ####[facility] [id number] [place], [place], Platelet mean volume (Bld) [Entitic vol] 9.3 fL Normal 7.5-11.2 [facility] Comment on above: Performed By: #### C BC ####[facility] [id number] [place], [place], Platelets (Bld) [#/Vol] 425 10*3/uL High 150-400 [facility] Comment on above: Performed By: #### C BC ####[facility] [id number] [place], [place], RBC (Bld) [#/Vol] 3.48 10*6/uL Low 4.00-5.20 [facility] Comment on above: Performed By: #### C BC ####[facility] [id number] [place], [place], WBC (Bld) [#/Vol] 5.3 10*3/uL Normal 4.5-11.[address] Comment on above: Performed By: #### C BC ####[facility] [id number] [place], [place], Patient Instructionson 12-24 Ring Barker Operator Authentication Interface Message Text On the morning [...] for pain Please hold all Vitamin E, [place] 3, fish oil and herbal supplements for 1 week prior to surgery Please hold Naltrexone 3 days prior to surgery. Last dose on 01/03. Please use this CHECKLIST to prepare for your surgery/procedure: ? Assume that any lab or testing done during your Pre-admission testing appointment is within normal limits unless otherwise contacted. ? Expect a call from [facility] one business day prior to surgery [...] your Preparing for Your Surgery/Procedure booklet or [email or web address] if you have questions. Contact the Pre-Admission Testing department at [phone] or your surgeon's office with any questions [...] stay with you after surgery. Please call [facility] Social Work if you need transportation assistance or have concerns about going home [phone]. ? PEDIATRIC or ADOLESCENTS: Parents or a [...] result (more content not included)... Normal [facility] Progress Noteson 12-10-2023 Ring Barker Operator Authentication Interface Message Text Parent/guardian/patient was contacted for PSE AND OR scheduled -- confirmed information with mom, also informed mom importance of receiving PSE call -- if not received surgery will be canceled OR date 01/08/2024 ----- , December 10, 2023 at 11:39:35 AM ----- ----- Provider: [facility] -- Clinic: [place] ----- Normal [facility] [place] Gastric Emptying Studyon 09-27-2023 NM [...] 30.4 3.0 hr (Upper Limit 30%) 1.5 [facility] Consent for Treatmenton Consent for Treatment [id number]#1.00TIF F [facility] IntraOperative Documentson 0 09-18-2023 IntraOperative Documents [id number]#1.00TIF F [facility] Progress Note-Physicianon Progress Note-Physician Patient: VEE [...] mental retardation (I.Q. 20-34) / SNOMED CT 55180942 / Confirmed Seizure disorder / SNOMED CT 821097080 / Confirmed Seasonal allergy / SNOMED CT 7770258672 / Confirmed Pervasive developmental disorder / SNOMED CT 66233558 / Confirmed Osteoporosis / SNOMED CT 366444978 / Confirmed Impulse control disorder / SNOMED CT 342854011 / Confirmed Disruptive behavior disorder / SNOMED CT 85387992 / Confirmed Constipation / SNOMED CT 73230073 / Confirmed Cholelithiasis / SNOMED CT 346990860 / Confirmed Cerebral palsy / SNOMED CT 940650121 / Confirmed Bipolar / SNOMED CT 407938520 / Confirmed Histories Procedure history: No active procedure history items have been selected or recorded. Social History Social & Psychosocial Habits Tobacco 09/10/2023 Tobacco Use: Never (less than 100 in l Smokeless tobacco use: Never . Physical Examination Airway: Mallampati classification: II (soft palate, fauces, uvula visible). Respiratory: adequate air exchange. Cardiovascular: Regular rhythm. Plan [place] [employer] (ASA) physical status classification: Class III. Anesthetic Preoperative Plan: Anesthesia General. Normal [facility] Comment on above: Result Comment: Elec [...] when meets criteria ( To home ). [facility] Comment on above: Result Comment: Elec tronically Signed By: Chaim Phillips Jr, DO\ivan\Date and Time Signed: 09/18/23 08:45 EDT Consenton 09-17-2023 Consent [id number]#1.00TI FF [facility] Discharge Instructionson Discharge Instructions [id number]#1.00TI FF [facility] Main OR Intraoperative Recor don 09-17-2023 Main OR Intraoperative Record IntraOp Document Type FT Summary Primary Physician: Kelle RAMIREZ, Jessee Chester Finalized Date/Time: 09/17/23 09:56:06 Pt. Name: VEE SARABIA /Sex: 1985 Female Med Rec #: [id number] Physician: Jessee Nina MD Financial #: [id number] Pt. Type: O Room/Bed: / Admit/Disch: 09/16/23 [...] 3 Case Attendee Margret SALMON, James Haynes MERCHANT MILLER, Josefa Nina MD, Jessee Cerda Role Performed Anesthesiologist Scrub - Primary Surgeon - Primary Photo Cartographer Time In 09/16/23 08:21:00 09/16/23 08:21:00 09/16/23 08:21:00 Time Out 09/16/23 08:33:00 09/16/23 08:33:00 09/16/23 08:33:00 Procedure EGD(.) EGD(.) EGD(.) Comments Dr. Phillips is supervising Last Modified By: Kevin HERMOSILLO, Wendy Brown RN, Wendy Dennis RN 09/16/23 08:32:53 09/16/23 08:32:53 09/16/23 08:32:53 Entry 4 Case Attendee Wendy Brown RN Role Performed Admissions Nurse - Primary Time In 09/16/23 08:21:00 Time [...] Out James Sidhu Given Participants Ivy Gonsales MERCHANT MILLER, Kelle Bean MD, Jessee Chester, Wendy Brown [...] and tissue Entry 1 Skin Integrity Intact, [place], Warm, and Skin Abnormality No Dry Outcomes [...] Leg Po (more content not included)... Normal [facility] Consent for Treatmenton Consent for Treatment [id number]#[id number] F Normal [facility] Discharge Instructionson Discharge Instructions VEE SARABIA [...] weeks Comments: Call for any problems. Where: [facility] [address] [place] [address]- [phone] Business (1) Medications What How Much When [...] medicines, such (more content not included)... Normal [facility] Comment on above: Result Comment: Elec [...] status post biopsies. Images Procedure images: Rec1_hd_video_ [id number].jpg Rec1_hd_video_ [id number].jpg Rec1_hd_video_ [id number].jpg Rec1_hd_video_ [id number].jpg . Post-Procedure Complications: none. Estimated blood loss: minimal. Specimens: sent to pathology. Devices/ implants: none left in place. Impression and Plan irregular Z-line Gastropathy fundic gland polyps Status post biopsies from stomach and duodenum Recommendations: -Resume previous diet -Resume home medications -Await pathology results Normal [facility] Comment on above: Other Comment: Melissa calderón Attachment - attachment storage system not supported [id number] Can be viewed in source system Missing Attachment - attachment storage system not supported [id number] Can be viewed in source system Missing Attachment - attachment storage system not supported [id number] Can be viewed in source system Missing Attachment - attachment storage system not supported [id number] Can be viewed in source system Main OR PACU I Recordon 05-0 Main OR PACU I Record PACU Phase I Docum ent Type FT Summary Primary Physician: Kelle RAMIREZ, Jessee Chester Finalized Date/Time: 09/16/23 09:20:05 Pt. Name: VEE SARABIA Tawanda Bolaños./Sex: 1985 Female Med Rec #: [id number] Physician: Jessee Nina MD Financial #: [id number] Pt. Type: O Room/Bed: / Admit/Disch: 09/16/23 [...] By: Stacie Prescott RN 09/16/23 09:20 Normal [facility] Main OR Preoperative Recordo n 09-16-2023 Main OR Preoperative Record Holding Area Document Type FT Summary Primary Physician: Jessee Nina MD Finalized Date/Time: 09/16/23 07:37:45 Pt. Name: VEE SARABIA Tawanda Moses/Sex: 1985 Female Med Rec #: [id number] Physician: Jessee Nina MD Financial #: [id number] Pt. Type: O Room/Bed: / Admit/Disch: 09/16/23 [...] Adult Bill- staff [facility]op [facility] Case Cancelled in No Holding Area see comments below for reason Last Modified By: Vanessa Roy RN 09/16/23 07:35:16 General Comments: Caregiver, Bill present with patient from [facility]. /,RN Finalized By: Vanessa Roy RN Document Signatures Signed By: Vanessa Roy RN 09/16/23 07:37 Normal [facility] Monitor Recordon 09-16-2023 Monitor Record [id number] FF Normal [facility] Monitor Record [id number]#1.00TI FF Normal [facility] Consent for Procedure/Surger yon 09-11-2023 Consent for Procedure/Surgery [id number]#1.00TI FF [facility] Ambulatory Visit Summaryon 0 09-10-2023 Ambulatory [...] Appointments Thursday. 2023 8:00 AM EDT Where: [facility] You Need to Complete the Following NM Gastric Emptying Study, 09/10/23, Routine, Order for Future Visit, Transport Mode: Ambulatory, Reason: Nausea, Nausea and vomiting Invalid Interpretation Code Early satiety Ross [facility] Gastroenterology Office/Clin ic Noteon 09-10-2023 Gastroenterology Office/Clinic Note Chief Complaint nausea/vomiting, constipation, weight loss HPI Staff Patient is a 38 year old female who was referred by [facility] for nausea and vomiting. Intermittent nausea [...] diphtheria/pertussis, acel/tetanus adult 08/14/2022 Recorded SARS-CoV-2 (COVID-19) [id number].[id number] 08/14/2022 Recorded influenza virus vaccine, inactivated 03/05/2022 Recorded SARS-CoV-2 (COVID-19) [id number].[id number] 03/05/2022 Recorded 2023-09-09: TPVALL influenza virus vaccine, [...] Recorded measles/mumps/rubella virus vaccine 11/15/1986 Recorded Normal [facility] Comment on above: Result Comment: Elec tronically Signed By: Kelle RAMIREZ, Jessee Andrade.br\Date and Time Signed: 09/10/23 09:40 EDT [facility] Record[facility] 09-09 [facility] [id number]#1.00TIF F Normal [facility] CBC w/Indiceson 04-01-2023 Erythrocyte distribution width (RBC) [Ratio] 15.4 % High 10.9-14.2 [facility] Comment on above: Performed By: #### 2 453321, 5337208, 1940327, 3896724, 1213786, 4377217, 6069797, 27417535, 9208874, 5411535 ####[facility] [address] [place] [address] Hematocrit (Bld) [Volume fraction] 37.4 % Normal 34.0-46.0 [facility] Comment on above: Performed By: #### 2 923761, 6920445, 3908644, 7184550, 5567652, 4301916, 1971400, 18160109, 6796801, 1675799 ####[facility] [address] [place] [address] Hemoglobin (Bld) [Mass/Vol] 12.1 g/dL Normal 12.0-16.0 [facility] Comment on above: Performed By: #### 2 088185, 2873776, 3163133, 8642232, 4197129, 7804712, 2485838, 65001266, 2037747, 9609738 ####[facility] [address] [place] [address] MCH (RBC) [Entitic mass] 30.9 pg Normal 27.0-34.0 [facility] Comment on above: Performed By: #### 2 629565, 0272834, 7947761, 5398506, 6577814, 6108038, 3293337, 40723982, 0230861, 8753441 ####[facility] [address] [place] [address] MCHC (RBC) [Mass/Vol] 32.4 g/dL Normal 31.4-36.0 [facility] Comment on above: Performed By: #### 2 902772, 6536074, 3864782, 1897177, 8412906, 3671307, 1371748, 54127262, 8324846, 6730852 ####[address] [address] MCV (RBC) [Entitic vol] 95.6 fL Normal 80.0-100.0 [facility] Comment on above: Performed By: #### 2 849480, 3697568, 3820979, 4034958, 0840227, 1228591, 5103529, 68646638, 0292526, 7950117 ####[address] [place] [address] Platelet mean volume (Bld) [Entitic vol] 12.2 fL High 6.4-10.8 [facility] Comment on above: Performed By: #### 2 266121, 2431169, 1286353, 4992968, 4200807, 2826919, 4951062, 85138298, 3469393, 0232331 ####[address] [place] [address] Platelets (Bld) [#/Vol] 309.0 E9/L Normal 150. 0-500. 0 [facility] Comment on above: Performed By: #### 2 514941, 0564567, 9357713, 9973012, 6475925, 4738955, 7589631, 83011892, 0732290, 1574716 ####[facility] [address] [place] [address] RBC (Bld) [#/Vol] 3.9 E12/L Low 4.3-5.9 [facility] Comment on above: Performed By: #### 2 064761, 3253187, 5753014, 1170137, 8741195, 1927643, 7156893, 06280930, 7444924, 9060646 ####[facility] [address] [place] [address] WBC corrected for nucl RBC Auto (Bld) [#/Vol] 6.5 E9/L Normal 4.0-11.0 [facility] Comment on above: Performed By: #### 2 244331, 4514406, 3382568, 1559242, 5849751, 3476060, 5558409, 99574074, 6866403, 8511449 ####[facility] [address] [place] [address] CHEMISTRYOrdered By: SYSTEM SYSTEM on 04-01-2023 Albumin [...] 04-01-2023 Albumin [Mass/Vol] 3.7 g/dL Normal 3.3-5.0 [facility] Comment on above: Performed By: #### 2 249495, 8825062, 0259838, 2392638, 7861239, 6805815, 3722038, 15038887, 4151328, 0865124 ####[facility] [address] [place] [address] Albumin/Globulin (S) [Mass conc ratio] 1.2 Normal 1.1-2.2 [facility] Comment on above: Performed By: #### 2 816030, 4786797, 1945076, 8531534, 7009038, 7237351, 4455757, 98140684, 3869442, 1606942 ####[facility] [address] [place] [address] ALP [Catalytic activity/Vol] 32 Int._Unit/L Normal 21-98 [facility] Comment on above: Performed By: #### 2 207775, 2423907, 1981528, 0840890, 7667513, 3709061, 1984600, 67548928, 2718639, 7622468 ####[facility] [address] [place] [address] ALT No additional P-5'-P [Catalytic activity/Vol] 24 Int._Unit/L Normal 6-46 [facility] Comment on above: Performed By: #### 2 726491, 1815435, 9520001, 0071990, 2569256, 1578604, 3715378, 58327903, 7184397, 9388221 ####[facility] [address] [place] [address] Anion gap [Moles/Vol] 13 mmol/L Normal 6-16 [facility] Comment on above: Performed By: #### 2 944844, 4808875, 1484157, 6290847, 2646507, 1687626, 7359060, 42536407, 0383951, 7753878 ####[facility] [address] [place] [address] AST [Catalytic activity/Vol] 28 Int._Unit/L Normal 5-43 [facility] Comment on above: Performed By: #### 2 947714, 3601979, 9819103, 0507641, 6847676, 7998907, 8651354, 56935094, 4838162, 0231021 ####[facility] [address] [place] [address] Bilirubin [Mass/Vol] 0.1 mg/dL Normal 0.0-1.1 [facility] Comment on above: Performed By: #### 2 995144, 9335875, 5654592, 3039303, 8167769, 7299921, 1341138, 76681936, 7849944, 0191732 ####[facility] [address] [place] [address] Calcium [Mass/Vol] 8.9 mg/dL Normal 8.9-11.1 [facility] Comment on above: Performed By: #### 2 797099, 5555144, 1097994, 0761059, 1832930, 7967010, 3232690, 32793243, 0910196, 2712803 ####[facility] [address] [place] [address] Chloride [Moles/Vol] 98 mmol/L Low 101-111 [facility] Comment on above: Performed By: #### 2 799617, 5003716, 1417549, 5177735, 9585839, 6847220, 6243751, 99168431, 2449724, 5093630 ####[facility] [address] [place] [address] CO2 [Moles/Vol] 24 mmol/L Normal 21-31 [facility] Comment on above: Performed By: #### 2 509323, 0245557, 8702596, 0522294, 7764111, 1856901, 5722482, 22620928, 0231782, 3631327 ####[facility] [address] [place] [address] Creatinine [Mass/Vol] 0.5 mg/dL Normal 0.5-1.3 [facility] Comment on above: Performed By: #### 2 256911, 4918907, 2042254, 3716166, 7851379, 9505992, 2306156, 57135299, 0445029, 5769790 ####[facility] [address] [place] [address] Globulin (S) [Mass/Vol] 3.2 g/dL Normal 1.4-4.0 [facility] Comment on above: Performed By: #### 2 827789, 5645305, 7465384, 3789733, 5870981, 9978245, 9278361, 99875919, 4956421, 7531403 ####[facility] [address] [place] [address] Glucose [Mass/Vol] 86 mg/dL Normal 55-199 [facility] Comment on above: Result Comment: If t his glucose result represents a fasting glucose, interpretation should refer to the following reference range: 55-99 mg/dL Performed By: #### 2 214225, 8411452, 6813613, 4507330, 1489581, 0842204, 6036981, 98004440, 7318336, 8204065 ####[facility] [address] [place] [address] Potassium [Moles/Vol] 4.3 mmol/L Normal 3.5-5.3 [facility] Comment on above: Performed By: #### 2 839269, 7646986, 5098844, 4394893, 9988835, 6981282, 6677998, 72127455, 5277127, 1313494 ####[facility] [address] [place] [address] Protein [Mass/Vol] 6.9 g/dL Normal 6.0-7.8 [facility] Comment on above: Performed By: #### 2 783782, 3856398, 6736756, 3356007, 7620193, 9953064, 4725307, 98139874, 4068202, 8134273 ####[facility] [address] [place] [address] Sodium [Moles/Vol] 131 mmol/L Low 135-145 [facility] Comment on above: Performed By: #### 2 960254, 8405736, 7355262, 9143246, 4669201, 2811606, 6693595, 27051991, 0465897, 6322559 ####[facility] [address] [place] [address] Urea nitrogen [Mass/Vol] 8 mg/dL Normal 5-21 [facility] Comment on above: Performed By: #### 2 969505, 6631503, 1848472, 6323143, 5991868, 4230839, 8074806, 09704838, 2750037, 7156005 ####[facility] [address] [place] [address] Urea nitrogen/Creatinine [Mass ratio] 16 No Units Normal 10-20 [facility] Comment on above: Performed By: #### 2 471368, 9191745, 4652980, 2586748, 9802374, 3146893, 3456218, 53173542, 5101917, 4043518 ####[facility] [address] [place] [address] Carbamazepineon 04-01-2023 carBAMazepine [Mass/Vol] 4.4 microgram/mL Normal 4.0-1 2.0 [facility] Comment on above: Performed By: #### 2 766671, 1927045, 5257300, 9924105, 1826617, 5431630, 5530800, 01788838, 5721796, 0440857 ####[facility] [address] [place] [address] Ferritinon 04-01-2023 Ferritin [Mass/Vol] 39 ng/mL Normal 11-307 [facility] Comment on above: Result Comment: NORM ALS MEN <30 YRS 16-132 ng/mL MEN >30 YRS 8-338 ng/mL WOMEN (PREMEN) 6-104 ng/mL WOMEN (POSTMEN) 12-210 ng/mL Performed By: #### 2 672078, 3026212, 0027956, 1693693, 9545317, 9403836, 1460601, 86901624, 2858569, 3031238 ####[facility] [address] [place] [address] Free T4on 04-01-2023 Free T4 [Mass/Vol] 0.97 ng/dL Normal 0.58-1.64 [facility] Comment on above: Performed By: #### 2 047311, 1124500, 6082451, 6882321, 6789507, 3690025, 3074170, 23833399, 3284028, 8344022 ####[facility] [address] [place] [address] HEMATOLOGYOrdered By: Graciela Carey on 04-01-2023 Erythrocyte [...] 95.6 fL Normal 80.0 - 100.0 fL FT HemeAutoSS Platelet mean volume (Bld) [Entitic vol] [...] 04-01-2023 Iron [Mass/Vol] 130 microgram/dL Normal 35-153 [facility] Comment on above: Performed By: #### 2 442064, 2014881, 9754496, 8049654, 3022357, 0428024, 4151648, 61604541, 2120405, 6043730 ####[facility] [address] [place] [address] Physician Orderon 04-01-2023 Physician Order [id number] FF Normal [facility] TSHon 04-01-2023 TSH Qn 0.96 m[IU]/L Normal 0.34-5.60 [facility] Comment on above: Performed By: #### 2 015805, 2179075, 2713395, 1343311, 8981656, 2682494, 1300901, 00993732, 4225224, 0849412 ####[facility] [address] [place] [address] Valproic Acidon 04-01-2023 Valproate [Moles/Vol] 59 microgram/mL Normal 50-99 [facility] Comment on above: Performed By: #### 2 054216, 7956219, 5393381, 3826423, 8390071, 9860356, 0180959, 00222750, 9305415, 5680653 ####[facility] [address] [place] [address] Vit B12on 04-01-2023 Cobalamin (Vitamin B12) [Mass/Vol] 305 pg/mL Normal 50-1500 [facility] Comment on above: Performed By: #### 2 844411, 9039221, 8319181, 1432535, 7557468, 3199568, 5558093, 75332974, 2678018, 5801932 ####[facility] [address] [place] [address] eGFRon 04-01-2023 GFR/1.73 sq M.predicted among non-blacks MDRD (S/P/Bld) [Vol rate/Area] 124 mL/min/1.73 m2 Normal >=59 [facility] Comment on above: Order Comment: Order added by Discern Expert. Result Comment: Vending Technician tamara kidney disease could be indicated at eGFR's of less than 60 mL/min/1.73m2. Kidney failure is indicated at less than 15 mL/min/1.73m2. Performed By: #### 2 670382, 4605909, 6562151, 1507716, 7550859, 9497512, 2824251, 39186223, 7754266, 1465246 ####[facility] [address] [place] [address] CHEMISTRYOrdered By: SYSTEM SYSTEM on 01-14-2023 Valproate [Moles/Vol] 82 microgram/mL Normal 50 - 99 mcg/mL [facility] Remisol Physician Orderon 01-14-2023 Physician Order [id number]: 127 Normal [facility] Valproic Acidon 01-14-2023 Valproate [Moles/Vol] 82 microgram/mL Normal 50-99 [facility] Comment on above: Performed By: #### 2 348599 ####[facility] [address] [place] [address] XR DEXA BONE DENSITYon 10-01 XR DEXA [...] by: SANDY RAMIREZ Date: 2022-10-01 11:02 Normal [facility] CBC AUTO DIFFon 09-16-2022 BASO # 0.0 103/ul Normal 0.0-0.1 [facility] Comment on above: Performed By: #### C BC #### [facility] [address] [place] [address] Dr. Chong Agarwal Basophils/100 WBC (Bld) 0.3 % Normal 0.2-2.0 [facility] Comment on above: Performed By: #### C BC #### [facility] [address] [place] [address] Dr. Chong Agarwal EO # 0.0 103/ul Normal 0.0-0.7 [facility] Comment on above: Performed By: #### C BC #### [facility] [address] [place] [address] Dr. Chong Agarwal Eosinophils/100 WBC (Bld) 0.4 % Critically low 0.9-7.0 [facility] Comment on above: Performed By: #### C BC #### [facility] [address] [place] [address] Dr. Chong Agarwal Erythrocyte distribution width (RBC) [Ratio] 14.6 % Normal 11.0-15.0 [facility] Comment on above: Performed By: #### C BC #### [facility] [address] [place] [address] Dr. Chong Agarwal Hematocrit (Bld) [Volume fraction] 37.6 % Normal 36.0-48.0 [facility] Comment on above: Performed By: #### C BC #### [facility] [address] [place] [address] Dr. Chong Agarwal Hemoglobin (Bld) [Mass/Vol] 12.2 g/dL Normal 12.0-16.0 [facility] Comment on above: Performed By: #### C BC #### [facility] [address] [place] [address] Dr. Chong Agarwal IG # 0.02 10e3/ul Normal 0.00-0.03 [facility] Comment on above: Performed By: #### C BC #### [facility] [address] [place] [address] Dr. Chong Agarwal IG % 0.3 % Normal 0.0-0.5 [facility] Comment on above: Performed By: #### C BC #### [facility] [address] [place] [address] Dr. Chong Agarwal LYMPH # 2.4 103/ul Normal 1.2-3.8 [facility] Comment on above: Performed By: #### C BC #### [facility] [address] [place] [address] Dr. Chong Agarwal Lymphocytes/100 WBC (Bld) 34.6 % Normal 20.5-60.0 [facility] Comment on above: Performed By: #### C BC #### [facility] [address] [place] [address] Dr. Chong Agarwal MANUAL DIFF REQ NO Normal [facility] Comment on above: Performed By: #### C BC #### [facility] [address] [place] [address] Dr. Chong Agarwal MCH (RBC) [Entitic mass] 31.4 pg Normal 26.7-34.0 [facility] Comment on above: Performed By: #### C BC #### [facility] [address] [place] [address] Dr. Chong Agarwal MCHC (RBC) [Mass/Vol] 32.4 g/dL Normal 29.9-35.2 [facility] Comment on above: Performed By: #### C BC #### [facility] [address] [address] [address] Chong Agarwal MCV (RBC) [Entitic vol] 96.7 fL Normal 81.0-99.0 [facility] Comment on above: Performed By: #### C BC #### [facility] [address] [address] [address] Chong Agarwal MONO # 0.7 103/ul Normal 0.3-0.8 [facility] Comment on above: Performed By: #### C BC #### [facility] [address] [address] [address] Chong Agarwal Monocytes/100 WBC (Bld) 10.2 % Normal 1.7-12.0 [facility] Comment on above: Performed By: #### C BC #### [facility] [address] [address] [address] Chong Agarwal NEUT # 3.8 103/ul Normal 1.4-6.5 [facility] Comment on above: Performed By: #### C BC #### [facility] [address] [address] [address] Chong Agarwal Neutrophils/100 WBC (Bld) 54.2 % Normal 43.0-75.0 [facility] Comment on above: Performed By: #### C BC #### [facility] [address] [address] [address] Chong Agarwal Platelet mean volume (Bld) [Entitic vol] 11.0 fL Normal 9.5-13.5 [facility] Comment on above: Performed By: #### C BC #### [facility] [address] [address] [address] Chong Agarwal PLT 290 103/ul Normal 150-450 [facility] Comment on above: Performed By: #### C BC #### [facility] [address] [address] [address] Chong Agarwal RBC 3.89 106/ul Critically low 4.20-5.40 [facility] Comment on above: Performed By: #### C BC #### [facility] [address] [address] [address] Chong Agarwal WBC 7.0 103/ul Normal 4.0-11.0 [facility] Comment on above: Performed By: #### C BC #### [facility] [address] [address] [address] Chong Agarwal FREE T3on 09-16-2022 FREE T3 2.11 pg/mlL Critically low 2.18-3.98 [facility] Comment on above: Performed By: #### T SH, CMP, LIPID, FT3 #### [facility] [address] [address] [address] Chong Agarwal FREE T4on 09-16-2022 Free T4 [Mass/Vol] 1.25 ng/dL Normal 0.76-1.46 [facility] Comment on above: Performed By: #### F T4, VITB12 #### [facility] [address] [address] [address] Chong Agarwal LIPID PROFILEon 09-16-2022 CHOL-HDL RATIO NORM SEE BELOW Normal [facility] Comment on above: Result Comment: 3.3 - 4.4 LOW RISK 4.4 - 7.1 AVERAGE RISK 7.1 - 11.0 MODERATE RISK >11.0 HIGH RISK Performed By: #### T SH, CMP, LIPID, FT3 #### [facility] [address] [place] [address] Dr. Chong Agarwal Cholesterol [Mass/Vol] 144 mg/dL Normal <=200 [facility] Comment on above: Performed By: #### T SH, CMP, LIPID, FT3 #### [facility] [address] [address] [address] Chong Agarwal Cholesterol in HDL [Mass/Vol] 49 mg/dL Normal 40-60 [facility] Comment on above: Performed By: #### T SH, CMP, LIPID, FT3 #### [facility] [address] [place] [address] Dr. Chong Agarwal Cholesterol in LDL [Mass/Vol] 78.0 mg/dL Normal [facility] Comment on above: Performed By: #### T SH, CMP, LIPID, FT3 #### [facility] [address] [address] [address] Chong Agarwal Cholesterol.total/Choles terol in HDL [Mass ratio] 2.9 {ratio} Normal [facility] Comment on above: Performed By: #### T SH, CMP, LIPID, FT3 #### [facility] [address] [address] [address] Chong Agarwal HDL NORMAL > or = 60 mg/dl - LO W CARDIOVASCULAR RISK <40 mg/dl - HIGH CARDIOVASCULAR RISK Normal [facility] Comment on above: Performed By: #### T SH, CMP, LIPID, FT3 #### [facility] [address] [address] [address] Chong Agarwal LDL CALC NORMAL SEE BELOW Normal [facility] Comment on above: Result Comment: <100 mg/dl OPTIMAL 100 - 129 mg/dl NEAR OR ABOVE OPTIMAL 130 - 159 mg/dl BORDERLINE HIGH 160 - 189 mg/dl HIGH >190 mg/dl VERY HIGH Performed By: #### T SH, CMP, LIPID, FT3 #### [facility] [address] [address] [address] Chong Agarwal Triglyceride [Mass/Vol] 85 mg/dL Normal <=150 T [facility] Comment on above: Performed By: #### T SH, CMP, LIPID, FT3 #### [facility] [address] [address] [address] Chong Agarwal VLDL CALC 17.0 mg/dL Normal [facility] Comment on above: Performed By: #### T SH, CMP, LIPID, FT3 #### [facility] [address] [address] [address] Chong Agarwal PROF 14(COMP METB)on 023 Albumin [Mass/Vol] 3.5 g/dL Normal 3.4-5.0 [facility] Comment on above: Performed By: #### T SH, CMP, LIPID, FT3 #### [facility] [address] [address] [address] Chong Agarwal Albumin/Globulin [Mass ratio] 0.9 {ratio} Normal [facility] Comment on above: Performed By: #### T SH, CMP, LIPID, FT3 #### [facility] [address] [place] [address] Dr. Chong Agarwal ALP [Catalytic activity/Vol] 31 U/L Critically low 46-116 [facility] Comment on above: Performed By: #### T SH, CMP, LIPID, FT3 #### [facility] [address] [place] [address] Dr. Chong Agarwal ALT [Catalytic activity/Vol] 34 U/L Normal 14-59 [facility] Comment on above: Performed By: #### T SH, CMP, LIPID, FT3 #### [facility] [address] [place] [address] Dr. Chong Agarwal Anion gap [Moles/Vol] 8.3 mmol/L Normal [facility] Comment on above: Performed By: #### T SH, CMP, LIPID, FT3 #### [facility] [address] [place] [address] Dr. Chong Agarwal AST [Catalytic activity/Vol] 22 U/L Normal 15-37 [facility] Comment on above: Performed By: #### T SH, CMP, LIPID, FT3 #### [facility] [address] [place] [address] Dr. Chong Agarwal Bilirubin [Mass/Vol] 0.2 mg/dL Normal 0.2-1.0 [facility] Comment on above: Performed By: #### T SH, CMP, LIPID, FT3 #### [facility] [address] [place] [address] Dr. Chong Agarwal Calcium [Mass/Vol] 9.0 mg/dL Normal 8.5-10.1 [facility] Comment on above: Performed By: #### T SH, CMP, LIPID, FT3 #### [facility] [address] [place] [address] Dr. Chong Agarwal Chloride [Moles/Vol] 101 mmol/L Normal 98-107 [facility] Comment on above: Performed By: #### T SH, CMP, LIPID, FT3 #### [facility] [address] [address] [address] Chong Agarwal CO2 [Moles/Vol] 30.0 mmol/L Normal 21.0-32.0 [facility] Comment on above: Performed By: #### T SH, CMP, LIPID, FT3 #### [facility] [address] [address] [address] Chong Agarwal Creatinine [Mass/Vol] 0.54 mg/dL Critically low 0.55-1.02 [facility] Comment on above: Performed By: #### T SH, CMP, LIPID, FT3 #### [facility] [address] [address] [address] Chogn Agarwal EGFR-AF PALAUAN >60 Normal >=60 [facility] Comment on above: Performed By: #### T SH, CMP, LIPID, FT3 #### [facility] [address] [address] [address] Chong Agarwal EGFR-NON AF PALAUAN >60 Normal >=60 [facility] Comment on above: Performed By: #### T SH, CMP, LIPID, FT3 #### [facility] [address] [address] [address] Chong Agarwal Globulin (S) [Mass/Vol] 3.9 g/dL Normal [facility] Comment on above: Performed By: #### T SH, CMP, LIPID, FT3 #### [facility] [address] [address] [address] Chong Agarwal Glucose [Mass/Vol] 95 mg/dL Normal 74-106 [facility] Comment on above: Performed By: #### T SH, CMP, LIPID, FT3 #### [facility] [address] [address] [address] Chong Agarwal Potassium [Moles/Vol] 4.3 mmol/L Normal 3.5-5.1 [facility] Comment on above: Performed By: #### T SH, CMP, LIPID, FT3 #### [facility] [address] [address] [address] Chong Agarwal Protein [Mass/Vol] 7.4 g/dL Normal 6.4-8.2 [facility] Comment on above: Performed By: #### T SH, CMP, LIPID, FT3 #### [facility] [address] [place] [address] Dr. Chong Agarwal Sodium [Moles/Vol] 135 mmol/L Critically low 136-[address] [facility] Comment on above: Performed By: #### T SH, CMP, LIPID, FT3 #### [facility] [address] [place] [address] Dr. Chong Agarwal Urea nitrogen [Mass/Vol] 12.0 mg/dL Normal 7.0-18.0 [facility] Comment on above: Performed By: #### T SH, CMP, LIPID, FT3 #### [facility] [address] [place] [address] Dr. Chong Agarwal Urea nitrogen/Creatinine [Mass ratio] 22.2 mg/mg Normal [facility] Comment on above: Performed By: #### T SH, CMP, LIPID, FT3 #### [facility] [address] [place] [address] Dr. Chong Agarwal TSHon 09-16-2022 TSH 0.986 uIU/mL Normal 0.358-3.74 0 [facility] Comment on above: Performed By: #### T SH, CMP, LIPID, FT3 #### [facility] [address] [place] [address] Dr. Chong Agarwal VITAMIN B12on 09-16-2022 Cobalamin (Vitamin B12) [Mass/Vol] 581.0 pg/mL Normal 193.0-986. 0 [facility] Comment on above: Performed By: #### F T4, VITB12 #### [facility] [address] [place] [address] Dr. Chong Agarwal CULTURE WOUNDon 08-22-2022 CULTURE [...] F Trimethoprim/Sulfamethox azole <=10 S F Normal [facility] Comment on above: Performed By: #### W OUNDCX #### [facility] [address] [place] [address] Dr. Chong Agarwal DEPAKENE/ VALPROIC ACIDon DEPAKENE 92.4 ug/ml Normal 50.0-100.0 [facility] Comment on above: Performed By: #### V ALP #### [facility] [address] [place] [address] Dr. Chong Agarwal Vital Signs Date Time Vital Sign Value Performing Clinician Facility 01-08-2024 16:00-0400 Diastolic blood pressure 26 mm[Hg] Stacie Torres DMD Work Phone: [facility] 01-08-2024 16:00-0400 Heart rate 84 /min Stacie Torres DMD Work Phone: [facility] 01-08-2024 16:00-0400 Respiratory rate 22 /min Stacie Torres DMD Work Phone: [facility] 01-08-2024 16:00-0400 SaO2% (BldA) [Mass fraction] 96 % Stacie Torres DMD Work Phone: [facility] 01-08-2024 16:00-0400 Systolic blood pressure 94 mm[Hg] Stacie Torres DMD Work Phone: [facility] 01-08-2024 15:56-0400 Body temperature 98.1 [degF] Stacie Torres DMD Work Phone: [facility] 01-08-2024 11:04-0400 Body height 147.3 cm Stacie Torres DMD Work Phone: [facility] 01-08-2024 11:04-0400 Body mass index (BMI) [Ratio] 31.98 kg/m2 Stacie Torres DMD Work Phone: [facility] 01-08-2024 11:04-0400 Body weight 69.4 kg Stacie Torres DMD Work Phone: [facility] 12-28-2023 20:36-0400 Heart rate 75 /min Víctor Earl [employer] Work Phone: [facility] 12-25-2023 10:34-0400 Body height 147.3 cm Víctor Earl [employer] Work Phone: [facility] 12-25-2023 10:34-0400 Body mass index (BMI) [Ratio] 31.98 kg/m2 Víctor Earl [employer] Work Phone: [facility] 12-25-2023 10:34-0400 Body temperature 98.91 [degF] Víctor Goldberg [employer]ER Work Phone: [facility] 12-25-2023 10:34-0400 Body weight 69.4 kg Justensamia Earl [employer] T[employer]ER Work Phone: [facility] 12-25-2023 10:34-0400 Diastolic blood pressure 61 mm[Hg] Víctor Goldberg [employer] T[employer]ER Work Phone: [facility] [facility] 12-25-2023 10:34-0400 Heart rate 86 /min Víctor Goldberg [employer] T[employer]ER Work Phone: [facility] [facility] 12-25-2023 10:34-0400 Respiratory rate 16 /min Víctor Goldberg [employer] T[employer]ER Work Phone: [facility] 12-25-2023 10:34-0400 SaO2% (BldA) [Mass fraction] 99 % Víctor Goldberg [employer]ER Work Phone: [facility] 12-25-2023 10:34-0400 Systolic blood pressure 94 mm[Hg] Víctor Goldberg [employer] T[employer]ER [facility] 09-16-2023 09:00-0400 Diastolic blood pressure 61 mm[Hg] Mohamad Mouchli [facility] 09-16-2023 09:00-0400 Heart rate 70 /min Mohamad Mouchli [facility] 09-16-2023 09:00-0400 Mean blood pressure 74 mm[Hg] Mohamad Mouchli [facility] 09-16-2023 09:00-0400 Systolic blood pressure 99 mm[Hg] Mohamad Mouchli [facility] 09-16-2023 08:50-0400 Blood Pressure Location Mohamad Mouchli [facility] 09-16-2023 08:50-0400 Diastolic blood pressure 68 mm[Hg] Mohamad Mouchli [facility] 09-16-2023 08:50-0400 Heart rate 72 /min Mohamad Mouchli [facility] 09-16-2023 08:50-0400 Mean blood pressure 79 mm[Hg] Mohamad Mouchli [facility] 09-16-2023 08:50-0400 Respiratory rate 12 /min Mohamad Mouchli [facility] 09-16-2023 08:50-0400 SaO2% (BldA) [Mass fraction] 96 % Mohamad Mouchli [facility] 09-16-2023 08:50-0400 Systolic blood pressure 100 mm[Hg] Mohamad Mouchli [facility] 09-16-2023 08:45-0400 Diastolic blood pressure 83 mm[Hg] Mohamad Mouchli [facility] 09-16-2023 08:45-0400 Heart rate 86 /min Mohamad Mouchli [facility] 09-16-2023 08:45-0400 Mean blood pressure 88 mm[Hg] Mohamad Mouchli [facility] 09-16-2023 08:45-0400 Respiratory rate 17 /min Mohamad Mouchli [facility] 09-16-2023 08:45-0400 SaO2% (BldA) [Mass fraction] 97 % Mohamad Mouchli [facility] 09-16-2023 08:45-0400 Systolic blood pressure 98 mm[Hg] Mohamad Mouchli [facility] 09-16-2023 08:35-0400 Body temperature 98.06 [degF] Mohamad Mouchli [facility] 09-16-2023 07:39-0400 Body temperature 98.06 [degF] Mohamad Mouchli [facility] 09-10-2023 09:10-0400 Blood Pressure Location Mohemanueld Rejiuchli [facility] 09-10-2023 09:10-0400 Diastolic blood pressure 67 mm[Hg] Mohamad Mouchli [facility] 09-10-2023 09:10-0400 Heart rate 91 /min Mohamad Mouchli [facility] 09-10-2023 09:10-0400 Respiratory rate 16 /min Mohamad Mouchli [facility] 09-10-2023 09:10-0400 Systolic blood pressure 113 mm[Hg] Gersond Rejiuchli [facility] Encounters Encounter Date Encounter Type Care Provider Facility Start: 02-03-2024 End: 02-03-2024 Refill Chandler Marin DDS Work Phone: [facility] Comment on above: Refill Start: 01-11-2024 End: 01-11-2024 Telephone encounter Stacie Torres DMD Work Phone: [facility] Comment on above: Referral needs place d for OS Start: 01-08-2024 End: 01-08-2024 Patient encounter procedure Stacie Torres DMD Work Phone: [facility] Comment on above: Arrived Start: 01-08-2024 End: 01-08-2024 ambulatory UNKNOWN PROVIDER Facility:[facility] Start: 01-08-2024 End: 01-08-2024 Subsequent hospital visit by physician Stacie Torres DMD Work Phone: [facility] Start: 01-08-2024 ambulatory UNKNOWN PROVIDER Facili ty:[facility] Start: 01-06-2024 End: 01-06-2024 Telephone encounter Bronwyn Pradhan RN [facility] Pre-Admission Testing Comment on above: Pre-surgical Evaluat ion (DD adult dental restorations 01/07 under [place] at [place]. PAT completed - consents obtained. MARY RN spoke to Cass[place], confirmed NPO except water only until 0900 (Cassidy stated pt does not like and will not drink water), [place] address, and 1100 arrival time/) Start: 01-05-2024 End: 01-05-2024 ambulatory POONAM TALBERT Not Available Start: 12-28-2023 End: 12-28-2023 Telephone encounter Susie Dumont RN [facility] Pre-Admission Testing Start: 12-25-2023 End: 12-28-2023 Patient encounter procedure Víctor Goldberg [employer] Work Phone: [facility]mission [facility] Comment on above: Preop testing (Prima ry Dx); Body mass index (BMI) 31.0-31.9, adult Preop testing (Prima ry Dx); Body mass index (BMI) 31.0-31.9, adult; Abnormal electrocardiogram (ECG) (EKG); Abnormal electrocardiogram (ECG) (EKG) Start: 12-25-2023 End: 12-28-2023 Patient encounter status Víctor Goldberg [employer] T[employer] [facility] Work Phone: Start: 12-25-2023 End: 12-28-2023 ambulatory VÍCTOR GOLDBERG Facility:[facility] Start: 12-25-2023 Encounter for other preprocedural examination VÍCTOR GOLDBERG [facility] Start: 09-23-2023 End: 09-24-2023 ambulatory Jessee Nina Facility:[facility] Start: 09-23-2023 End: 09-23-2023 Patient encounter procedure Jessee Nina [facility] Start: 09-16-2023 End: 09-17-2023 ambulatory Jessee Nina Facility:[facility] Start: 09-16-2023 End: 09-16-2023 Patient encounter procedure Jessee Nina [facility] Start: 09-10-2023 End: 09-11-2023 ambulatory Jessee Nina Facility:[facility] Start: 09-10-2023 End: 09-10-2023 Patient encounter procedure Jessee Nina [facility] Start: 09-09-2023 ambulatory Jessee Nina Facilit y:[facility] Start: 04-01-2023 End: 04-02-2023 ambulatory BALJIT PINEDO Facility:[facility] Start: 04-01-2023 End: 04-01-2023 Lab Drop off BALJIT PINEDO [facility] Start: 01-14-2023 End: 01-15-2023 ambulatory BALJIT PINEDO Facility:[facility] Start: 01-14-2023 End: 01-14-2023 Lab Drop off BALJIT PINEDO [facility] Start: 10-01-[address] BALJIT PINEDO Fac ility:[facility] Start: 09-16-2022 End: 09-17-[address] BALJIT PINEDO Facility:[facility] Start: 08-19-2022 End: 08-19-[address] BALJIT PINEDO Facility:[facility] Start: 07-22-2022 End: 07-25-2022 Patient encounter procedure Kary Ku DDS Work Phone: [facility] Start: 06-08-2022 Letter encounter Rm Goldman DDS Work Phone: [facility] Start: 04-29-2022 End: 04-30-[address] BALJIT PINEDO Facility:[facility] Procedures Date Procedure Procedure Detail Performing Clinician Start: 01-08-2024 Gonadotropin chorionic quantitative Kim lorie Shin MD Work Phone: Start: 12-25-2023 Blood count complete automated Edsamia brock [employer] T[employer]ER Work Phone: Start: 12-25-2023 Ecg routine ecg w/least 12 lds trcg only w/o i&r Víctro Goldberg [employer] T[employer]ER Work Phone: Start: 09-16-2023 Esophagogastroduodenoscopy Jessee armstrong Plan of Treatment Date Care Activity Detail Author Start: 2035 Shingles (RZV) Vacci ne (1 of 2) Shingles (RZV) Vaccine (1 of 2) [facility] Start: 08-14-2032 Tetanus vaccination Tetanus (T d or Tdap) Booster [facility] Start: 02-16-2024 Influenza vaccination Influenza Vacc ine (#1) [facility] Start: 01-17-2024 COVID-19 Vaccine ( season) COVID-19 Vaccine ( season) [facility] Start: 01-17-2024 Influenza vaccination Influenza Vacc ine (#1) [facility] Start: 01-08-2024 End: 01-08-2024 DENTAL RESTORATIONS DENTAL RESTORATIONS Routine scheduled Caries 01/08/2024 2:10 PM EDT [facility] Start: 01-08-2024 End: 01-08-2024 Admission to same day surgery center 01/08/2024 11:28 AM EDT - 01/08/2024 1:23 PM EDT Surgery [facility] [address] [place] [address] Stacie Torres, DMD [address] [id number] DENTAL RESTORATIONS [facility] Comment on above: DENTAL RESTORATIONS Start: 01-08-2024 End: 01-08-2024 DENTAL RESTORATIONS DENTAL RESTORATIONS Routine scheduled Caries 01/08/2024 11:28 AM EDT [facility] Start: 01-08-2024 Subsequent hospital visit by physician 01/08/2024 11:28 AM EDT Hospital Encounter [facility] [address] [place] [id number] Stacie Torres DMD [address] [place] [address] [facility] Start: 01-08-2024 End: 01-08-2024 Patient encounter procedure 01/08/2024 11:00 AM EDT Procedure Visit [facility] [address] [place] [id number] Stacie Torres DMD [address] [place] [address] [facility] Start: 01-08-2024 End: 01-08-2024 Admission to same day surgery center 01/08/2024 7:20 AM EDT - 01/08/2024 9:15 AM EDT Surgery [facility] [address] [place] [id number] Stacie Torres DMD [address] [place] [address] DENTAL RESTORATIONS [facility] Comment on above: DENTAL RESTORATIONS Start: 01-08-2024 End: 01-08-2024 DENTAL RESTORATIONS DENTAL RESTORATIONS Routine scheduled Caries 01/08/2024 7:20 AM EDT [facility] Start: 01-08-2024 Subsequent hospital visit by physician 01/08/2024 7:20 AM EDT Hospital Encounter [facility] [address] [place] [id number] Stacie Torres DMD [address] [place] [address] [facility] Start: 01-16-2023 COVID-19 Vaccine ( season) COVID-19 Vaccine () [facility] Start: 08-31-2022 Tetanus vaccination Tetanus (T d or Tdap) Booster [facility] Start: 07-22-2022 End: 07-22-2022 Patient encounter procedure 07/22/2022 Procedure Visit Dentistry Diana Horan, [facility] [address] [place] [address] [facility] Start: 02-15-2022 Influenza vaccination Influenza Vacc ine (#1) [facility] Start: 2012 HPV Vaccine (optiona l start 27-45 years) HPV Vaccine (optional start 27-45 years) [facility] Start: 2006 Screening for malign ant neoplasm of cervix Pap Smear [facility] Start: 2004 Hepatitis A (HAV) Vaccine (optional start 19+ years) Hepatitis A (HAV) Vaccine (optional start 19+ years) [facility] Start: 2004 Hepatitis B vaccination Hepati tis B (HBV) Vaccine (1 of 3 - 19+ 3-dose series) [facility] Start: 2003 Hepatitis C screening Hepatitis C An tibody [facility] Start: 2000 HIV screening HIV Test [facility] Start: 1985 Screening for malign ant neoplasm of breast [facility] Ecg routine ecg w/le ast 12 lds trcg only w/o i&r EKG 12 LEAD - PERFORM MUSE Routine Preop testing Ordered: 12/25/2023 [employer] Work Phone: Comment on above: Ordered: 12/25/2023 End: 01-08-2024 Urine test visual color cmprsn meths URINE HCG-IN OFFICE Lab Routine One time for 1 Occurrences starting 01/08/2024 until 01/08/2024 [employer] Work Phone: Comment on above: One time for 1 Occur rences starting 01/08/2024 until 01/08/2024 Immunizations Immunization Date Immunization Notes Care Provider Fa cility 03-04-2023 influenza virus vacc ine, unspecified formulation Jessee Nina [facility] 08-14-2022 SARS-CoV-2 (COVID-19 ) [id number] Jessee Nina [facility] 08-14-2022 tetanus toxoid, redu penelope diphtheria toxoid, and acellular pertussis vaccine, adsorbed Jessee Nina [facility] 03-05-2022 influenza virus vacc ine, unspecified formulation Jessee Nina [facility] 03-05-2022 SARS-CoV-2 (COVID-19 ) [id number] Jessee Nina [facility] Comment on above: Result Comment: 2023: TPVALL 03-13-2021 influenza, injectabl e, quadrivalent, preservative free Rm Goldman Lingohub Work Phone: [facility] 03-13-2021 SARS-CoV-2 (COVID-19 ) mRNA BNT-162b2 vax Jessee Nina [facility] Comment on above: Result Comment: 2023: TPV3 03-13-2021 influenza virus vacc ine, unspecified formulation Rm Goldman [employer] Work Phone: [facility] 06-19-2020 Pfizer (12+ yrs) SARS-COV-2 (COVID-19) vaccine, mRNA, spike protein, LNP, pres. free, 30 mcg/0.3mL dose (CRC=696) Rm Goldman [employer] Work Phone: [facility] Comment on above: Result Comment: 2023: TPVAL 05-29-2020 Pfizer (12+ yrs) SARS-COV-2 (COVID-19) vaccine, mRNA, spike protein, LNP, pres. free, 30 mcg/0.3mL dose (FCV=029) Rm Goldman [employer] Work Phone: [facility] Comment on above: Result Comment: 2023: TPVAL 02-22-2020 influenza virus vacc ine, unspecified formulation Mohamad Mouchli [facility] 02-22-2020 influenza, injectabl e, quadrivalent, preservative free Rm Susi DDS Work Phone: [facility] 03-11-2019 influenza virus vacc ine, unspecified formulation Mohamad Mouchli [facility] 03-11-2019 influenza, injectabl e, quadrivalent, preservative free Rm Susi DDS Work Phone: [facility] 02-24-2018 influenza virus vacc ine, unspecified formulation Mohamad Mouchli [facility] 02-24-2018 influenza, injectabl e, quadrivalent, preservative free Rm Susi DDS Work Phone: [facility] 03-11-2017 influenza virus vacc ine, unspecified formulation Mohamad Mouchli [facility] 03-11-2017 influenza, injectabl e, quadrivalent, contains preservative Rm Susi DDS Work Phone: [facility] 02-20-2016 influenza virus vacc ine, unspecified formulation Mohamad Mouchli [facility] 02-20-2016 influenza, seasonal, injectable Rm Susi DDS Work Phone: [facility] 03-08-2015 influenza virus vacc ine, unspecified formulation Mohamad Mouchli [facility] 03-08-2015 influenza, injectabl e, quadrivalent, preservative free Rm Susi DDS Work Phone: [facility] 03-23-2014 influenza virus vacc ine, unspecified formulation Mohamad Mouchli [facility] 03-23-2014 influenza, injectabl e, quadrivalent, preservative free Rm Susi DDS Work Phone: [facility] 03-15-2013 influenza virus vacc ine, unspecified formulation Mohamad Mouchli [facility] 03-15-2013 influenza, seasonal, injectable Rm Susi DDS Work Phone: [facility] 08-31-2012 tetanus toxoid, redu penelope diphtheria toxoid, and acellular pertussis vaccine, adsorbed Rm Susi DDS Work Phone: [facility] 03-10-2012 influenza virus vacc ine, unspecified formulation Mohamad Mouchli [facility] 03-10-2012 influenza, seasonal, injectable Rm Susi DDS Work Phone: [facility] 01-29-2011 influenza virus vacc ine, unspecified formulation Mohamad Mouchli [facility] 01-29-2011 influenza, seasonal, injectable Rm Susi DDS Work Phone: [facility] 03-13-2010 influenza virus vacc ine, whole virus Rm Susi DDS Work Phone: [facility] 03-13-2010 influenza, whole Mohamad Erica chli [facility] 04-04-2009 novel influenza-H1N1 -09, preservative-free, injectable Rm Susi DDS Work Phone: [facility] 03-09-2008 influenza virus vacc ine, whole virus Rm Susi DDS Work Phone: [facility] 03-09-2008 influenza, whole Mohamad Erica chli [facility] 10-01-2006 meningococcal ACWY vaccine, unspecified formulation Mohamad Mouchli [facility] 10-01-2006 meningococcal polysaccharide (groups A, C, Y and W-135) diphtheria toxoid conjugate vaccine (MCV4P) Rm Goldman [employer] Work Phone: [facility] 09-02-2000 TD(adult) unspecifie d formulation; Translations: [Td(adult) unspecified formulation] Rm Goldman DDS Work Phone: [facility] 07-29-1990 diphtheria, tetanus toxoids and pertussis vaccine Rm Goldman DDS Work Phone: [facility] 07-29-1990 trivalent poliovirus vaccine, live, oral Rm Goldman DDS Work Phone: [facility] 11-03-1987 trivalent poliovirus vaccine, live, oral Rmphuong Goldman DDS Work Phone: [facility] 07-02-1987 haemophilus influenz ae type b vaccine, conjugate unspecified formulation Rm Goldman DDS Work Phone: [facility] 07-02-1987 Hib, unspecified formulation Jessee Nina [facility] 05-29-1987 diphtheria, tetanus toxoids and pertussis vaccine Rm Goldman DDS Work Phone: [facility] 05-29-1987 trivalent poliovirus vaccine, live, oral Rmphuong Goldman DDS Work Phone: [facility] 11-15-1986 measles, mumps and rubella virus vaccine Rmphuong Goldman DDS Work Phone: [facility] 06-28-1986 trivalent poliovirus vaccine, live, oral Rmphuong Goldman DDS Work Phone: [facility] 1985 diphtheria, tetanus toxoids and pertussis vaccine Rmphuong Rodriguezano DDS Work Phone: [facility] 1985 diphtheria, tetanus toxoids and pertussis vaccine Rmphuong Goldman DDS Work Phone: [facility] 1985 trivalent poliovirus vaccine, live, oral Rm Goldman DDS Work Phone: [facility] 1985 diphtheria, tetanus toxoids and pertussis vaccine Rm Goldman DDS Work Phone: [facility] Payers Date Payer Category Payer Medicaid [id number] 1985 Unknown [id number] 2.16.8 [id number] 1985 Unknown [id number] 2.16.8 [id number] 1985 Unknown [id number] 2.16.8 [id number] 1985 Unknown [id number] 2.16.8 [id number] 1985 Unknown [id number] 2.16.8 [id number] 1985 Unknown [id number] 2.16.8 [id number] 1985 Unknown [id number] 2.16.84 [id number] 1985 Unknown [id number] 2.16. [id number] 1985 Unknown [id number] 2.16. [id number] 1985 Unknown [id number] 2.16. [id number] 1959 Medicaid [id number] Unknown [id number] 2.16.84 [id number] Unknown [id number] 2.16.84 [id number] Unknown [id number] 2.16.84 [id number] Unknown [id number] 2.16.84 [id number] Social History Date Type Detail Facility Start: 02-03-2019 End: 09-10-2023 Tobacco smoking status NHIS Never smoked tobacco [facility] Start: 02-03-2019 Tobacco use and exposure Smokeless tobacco non-user [facility] Start: 11-06-2020 End: 01-11-2024 Alcohol intake Ex-drinker (finding) [facility] Start: 1985 [facility] Tobacco smoking status No Smoking Status Entered [facility] Start: 12-25-2023 Sex Assigned At Female F [facility] Tobacco smoking status Never [facility] Start: 12-25-2023 History of Social function [facility] Functional Status Date Assessment Result Facility 09-16-2023 Functional Status N/A [facility] 09-10-2023 Functional Status N/A [facility] Clinical Notes 07-14-2020 to 01-11-2024 [...] pt be seen by [facility] fro care & follow up. in progess notes it states Referral placed to OMS but NO referral can be found in pt's chart. please place referral for oral surgery. Message sent to [facility] Kary on January 13 2024 board. Message placed on board 01/11/24 @ 1152 am [facility] 01-11-2024 Miscellaneous Notes pt was seen in OR 01/08/24 , Stacie Montalvo DMD recommended that the pt be seen by [facility] fro care & follow up. in progess notes it states Referral placed to OMS but NO referral can be found in pt's chart. please place referral for oral surgery. Message sent to [facility] Kary on January 13 2024 board. Message placed on board 01/11/24 @ 1152 am documented in this encounter [facility] 01-08-2024 History of Present illness Narrative 1605 Discharge instructions reviewed, caregiver states pt on mouth was at home therefore does not wish to wait for prescription documented in this encounter [facility] 01-08-2024 Hospital Discharge instructions Divine Simon RN - 01/08/2024 3:48 PM EDT Images from the original note were not included. Dental abscess The Basics Written by the doctors and editors at [facility] What is a dental abscess? -- A [...] do anything to prevent another dental abscess? [place] your teeth at least 2 times a [...] process is complete. This topic retrieved from [employer] on: Jul 29, 2023. Topic 913163 Version 1.0 Release: 32.2.4 - C32.71 2023 [employer]. and/or its affiliates. All rights reserved. figure 1: Dental abscess Adental abscess is a collection of pus from an infection in the mouth. Dentalabscesses can form in the gums, next to a tooth, or in the root of a tooth. Graphic 230031 Version 1.0 Consumer Information Use and Disclaimer [...] or approved for treating a specific patient. [employer] and its affiliates disclaim any warranty or liability relating to this information or the use thereof.The use of this information is governed by the Terms of Use, available at https://www.[employer]Back[employer] Circle/e n/know/wgfyslwc-xjcmirbcvyexa-p erms. 2023 [employer] and its affiliates and/or licensors. All rights reserved. Copyright 2023 [employer] and/or its affiliates. All rights reserved. PERIOPERATIVE DISCHARGE/HOME-GOING INSTRUCTIONS ANESTHESIA - GENERAL (ADULT) If a problem arises, you may contact your physician by calling [phone] and asking for the resident director utilization management for Dental service. Special Care Needs: Activity: [...] very uncomfortable and can t urinate, call [phone] or come to the emergency room. The day after surgery, a nurse will call to check on you. However, if there are any questions or concerns, please call us at the number listed in the home going instructions. documented in this encounter [facility] 01-08-2024 History and physical note Surgical Attestation: I have reviewed the patient's History and Physical Examination. I have personally seen and evaluated the patient, repeating michelle portions. There is no significant interval change. Surgery is still indicated. Yes Consent reviewed and signed by patient/family: Yes Operative site verified and marked: site verified but not marked as bilateral (not side specific) Chandler Marin DDS 01/08/2024 1:47 PM [facility] 01-08-2024 Note Surgical Attestation : I have reviewed the patient's History and Physical Examination. I have personally seen and evaluated the patient, repeating michelle portions. There is no significant interval change. Surgery is still indicated. Yes Consent reviewed and signed by patient/family: Yes Operative site verified and marked: site verified but not marked as bilateral (not side specific) Chandler Marin DDS 01/08/2024 1:47 PM [facility] 01-08-2024 History and physical note Surgical Attestation: I have reviewed the patient's History and Physical Examination. I have personally seen and evaluated the patient, repeating michelle portions. There is no significant interval change. Surgery is still indicated. Yes Consent reviewed and signed by patient/family: Yes Operative site verified and marked: site verified but not marked as bilateral (not side specific) Chandler Marin DDS 01/08/2024 1:47 PM documented in this encounter [facility] 01-08-2024 Miscellaneous Notes Brief Operative Note PHE OR 3 Vee Stephensx 38 year old female Surgical Contact Serial Number: [id number] Preoperative Diagnosis: ADHD (attention deficit hyperactivity disorder) ([facility]) 10/08/2007 Anorexia 03/16/2008 Cerebral palsy ([facility]) 10/08/2007 Late effect of adverse effect of drug, medical or biological substance 05/02/2009 Mental impairment ([facility]) 10/08/2007 Mental retardation Other bipolar disorder ([facility]) 10/08/2007 Other conduct disorders ([facility]) 10/08/2007 Seizure disorder ([facility]) 10/08/2007 Postoperative Diagnosis: ADHD (attention deficit hyperactivity disorder) ([facility]) 10/08/2007 Anorexia 03/16/2008 Cerebral palsy ([facility]) 10/08/2007 Late effect of adverse effect of drug, medical or biological substance 05/02/2009 Mental impairment ([facility]) 10/08/2007 Mental retardation Other bipolar disorder ([facility]) 10/08/2007 Other conduct disorders ([facility]) 10/08/2007 Seizure disorder ([facility]) 10/08/2007 Procedures: Full mouth X-ray [43102] Full mouth cleaning [92824] Restorations [49195] Surgeon(s): Surgeon(s): Stacie Torres DMD Yoris, [place], DDS Staff: Admissions Nurse Nurse: Gabriel Hinkle Pharmacist'S Aide: Chandler Parham DDS Anesthesia: General Anesthesiologist: Justin [...] year old female Surgical Contact Serial Number: [id number] Preoperative Diagnosis: ADHD (attention deficit hyperactivity disorder) ([facility]) 10/08/2007 Anorexia 03/16/2008 Cerebral palsy ([facility]) 10/08/2007 Late effect of adverse effect of drug, medical or biological substance 05/02/2009 Mental impairment ([facility]) 10/08/2007 Mental retardation Other bipolar disorder ([facility]) 10/08/2007 Other conduct disorders ([facility]) 10/08/2007 Seizure disorder ([facility]) 10/08/2007 Postoperative Diagnosis: ADHD (attention deficit hyperactivity disorder) ([facility]) 10/08/2007 Anorexia 03/16/2008 Cerebral palsy ([facility]) 10/08/2007 Late effect of adverse effect of drug, medical or biological substance 05/02/2009 Mental impairment ([facility]) 10/08/2007 Mental retardation Other bipolar disorder ([facility]) 10/08/2007 Other conduct disorders ([facility]) 10/08/2007 Seizure disorder ([facility]) 10/08/2007 Surgeon: Stacie Torres DMD Photo Cartographer Surgeon: Chandler Marin DDS Anesthesia: General- Nasal [...] were discussed with the patient and/or legal administrative representative. The risks, benefits and alternatives were reviewed. Questions regarding blood transfusions were answered. The patient /or the patient s legal administrative representative agree with the plan for transfusion of blood and/or blood components. documented in this encounter [facility] 01-08-2024 Surgery Postoperative evaluation and management note Brief Operative Note PHE OR 3 Vee Sarabia 38 year old female Surgical Contact Serial Number: [id number] Preoperative Diagnosis: ADHD (attention deficit hyperactivity disorder) ([facility]) 10/08/2007 Anorexia 03/16/2008 Cerebral palsy ([facility]) 10/08/2007 Late effect of adverse effect of drug, medical or biological substance 05/02/2009 Mental impairment ([facility]) 10/08/2007 Mental retardation Other bipolar disorder ([facility]) 10/08/2007 Other conduct disorders ([facility]) 10/08/2007 Seizure disorder ([facility]) 10/08/2007 Postoperative Diagnosis: ADHD (attention deficit hyperactivity disorder) ([facility]) 10/08/2007 Anorexia 03/16/2008 Cerebral palsy ([facility]) 10/08/2007 Late effect of adverse effect of drug, medical or biological substance 05/02/2009 Mental impairment ([facility]) 10/08/2007 Mental retardation Other bipolar disorder ([facility]) 10/08/2007 Other conduct disorders ([facility]) 10/08/2007 Seizure disorder ([facility]) 10/08/2007 Procedures: Full mouth X-ray [17853] Full mouth cleaning [05333] Restorations [89989] Surgeon(s): Surgeon(s): Stacie Torres DMD Yoris, [place], DDS Staff: Admissions Nurse Nurse: Gabriel Hinkle Pharmacist'S Aide: Chandler Parham DDS Anesthesia: General Anesthesiologist: Justin [...] by Chandler Marin DDS 01/08/2024 1:48 PM [facility] 01-08-2024 Surgery Surgical operation note Operative Note PHE OR 3 Vee Sarabia 38 year old female Surgical Contact Serial Number: [id number] Preoperative Diagnosis: ADHD (attention deficit hyperactivity disorder) ([facility]) 10/08/2007 Anorexia 03/16/2008 Cerebral palsy ([facility]) 10/08/2007 Late effect of adverse effect of drug, medical or biological substance 05/02/2009 Mental impairment ([facility]) 10/08/2007 Mental retardation Other bipolar disorder ([facility]) 10/08/2007 Other conduct disorders ([facility]) 10/08/2007 Seizure disorder ([facility]) 10/08/2007 Postoperative Diagnosis: ADHD (attention deficit hyperactivity disorder) ([facility]) 10/08/2007 Anorexia 03/16/2008 Cerebral palsy ([facility]) 10/08/2007 Late effect of adverse effect of drug, medical or biological substance 05/02/2009 Mental impairment ([facility]) 10/08/2007 Mental retardation Other bipolar disorder ([facility]) 10/08/2007 Other conduct disorders ([facility]) 10/08/2007 Seizure disorder ([facility]) 10/08/2007 Surgeon: Stacie Torres DMD Photo Cartographer Surgeon: Chandler Marin DDS Anesthesia: General- Nasal [...] procedure. Chandler Marin DDS 01/08/2024 1:53 PM [facility] Work Phone: 01-08-2024 Progress note Formatting of t his note is different from the original. Blood Attestation: ATTESTATION OF INFORMED CONSENT FOR BLOOD: The transfusion of blood and/or blood components were discussed with the patient and/or legal administrative representative. The risks, benefits and alternatives were reviewed. Questions regarding blood transfusions were answered. The patient /or the patient s legal administrative representative agree with the plan for transfusion of blood and/or blood components. [facility] Work Phone: 01-08-2024 History of Present illness Narrative ----- Monday, January 08, 2024 at 3:45:54 PM ----- ----- Provider: [id number] - Stacie Torres DMD -- Clinic: [facility] ----- Pt was seen in OR under general anesthesia. comp exam, FMX and 4 quads SRP completed. Topical fluoride applied. #8 MIDLF broken tooth restored with composite. #12,13,14 present with non- restorable cervical lesions interproximally. 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 Referral placed to [facility] See note attached. Operative Note PHE OR 3 Vee Sarabia 38 year old female Surgical Contact Serial Number: [id number] Preoperative Diagnosis: ADHD (attention deficit hyperactivity disorder) ([facility]) 10/08/2007 Anorexia 03/16/2008 Cerebral palsy ([facility]) 10/08/2007 Late effect of adverse effect of drug, medical or biological substance 05/02/2009 Mental impairment ([facility]) 10/08/2007 Mental retardation Other bipolar disorder ([facility]) 10/08/2007 Other conduct disorders ([facility]) 10/08/2007 Seizure disorder ([facility]) 10/08/2007 Postoperative Diagnosis: ADHD (attention deficit hyperactivity disorder) ([facility]) 10/08/2007 Anorexia 03/16/2008 Cerebral palsy ([facility]) 10/08/2007 Late effect of adverse effect of drug, medical or biological substance 05/02/2009 Mental impairment ([facility]) 10/08/2007 Mental retardation Other bipolar disorder ([facility]) 10/08/2007 Other conduct disorders ([facility]) 10/08/2007 Seizure disorder ([facility]) 10/08/2007 Surgeon: Stacie Torres DMD Photo Cartographer Surgeon: Chandler Marin DDS Anesthesia: General- Nasal [...] of surgery: Stable documented in this encounter [facility] 12-28-2023 Telephone encounter Note Anesthesia consent scanned into [employer]. [facility] 12-28-2023 Miscellaneous Notes Anesthesia consent scanned into [employer]. documented in this encounter [facility] 12-25-2023 Víctor Evans, ARTIFICIAL STONE SETTER-PAPER TWISTER TENDER - 12/25/2023 10:36 AM EDT On the [...] for pain Please hold all Vitamin E, Phoenix 3, fish oil and herbal supplements for 1 week prior to surgery Please hold Naltrexone 3 days prior to surgery. Last dose on 01/03. Please use this CHECKLIST to prepare for your surgery/procedure: ? Assume that any lab or testing done during your Pre-admission testing appointment is within normal limits unless otherwise contacted. ? Expect a call from [facility] one business day prior to surgery for [...] questions. Contact the Pre-Admission Testing department at [phone] or your surgeon's office with any questions [...] stay with you after surgery. Please call [facility] [employer] if you need transportation assistance or have concerns about going home [phone]. ? PEDIATRIC or ADOLESCENTS: Parents or a [...] signs of dehydration. Thank you for choosing [facility]; it is our pleasure to care for you documented in this encounter [facility] 12-25-2023 Instructions Víctor Goldberg APRN-CNP - 12/25/2023 [...] for pain Please hold all Vitamin E, Phoenix 3, fish oil and herbal supplements for 1 week prior to surgery Please hold Naltrexone 3 days prior to surgery. Last dose on 01/03. Please use this CHECKLIST to prepare for your surgery/procedure: ? Assume that any lab or testing done during your Pre-admission testing appointment is within normal limits unless otherwise contacted. ? Expect a call from [facility] one business day prior to surgery [...] your Preparing for Your Surgery/Procedure booklet or [email or web address] if you have questions. Contact the Pre-Admission Testing department at [phone] or your surgeon's office with any questions [...] a car, cab, shared ride service, or [employer]van. You will not be allowed to drive yourself home or travel home alone. Your surgery may be cancelled if you do not have a ride. A responsible adult must stay with you after surgery. Please call [employer] if you need transportation assistance or have concerns about going home [phone]. ? PEDIATRIC or ADOLESCENTS: Parents or a [...] signs of dehydration. Thank you for choosing [facility]; it is our pleasure to care for you documented in this encounter [facility] 12-25-2023 History of Present illness Narrative Images from the original note were not included. Pre-Admission Testing Consultation Vee Sarabia, [id number] 38 year old Female 12/26/2023 Consult placed to [facility] by Dr. Almaraz due to significant PMH of caries. [facility] Triage Risk Score Total Score: 2 2 Patient is on more than 2 antihypertension medications. Vee Sarabia is scheduled for DENTAL RESTORATIONS on 01/08/2024. Pre-Op diagnosis of: Pre-Op Diagnosis Codes: * Caries [K02.9] HISTORY OF PRESENT ILLNESS: Patient presents today with a history of caries. Patient is here for pre-admission optimization and education prior to surgery. She is accompanied with her caregiver at [place], Dora Saucedo, who is helping review the patient's current and past medical history. Gabriela Rodriguez (mother--phone-- [phone]) is legal guardian. RECENT ILLNESS: Serious illness [...] Past Surgical History: Procedure Laterality Date CHOLECYSTECTOMY 2009 OSH H+P 01/25/19 DENTAL RESTORATIONS N/A 02/11/2019 Procedure: DENTAL RESTORATIONS; Surgeon: Fernando Kurtz DDS; Location: [facility] [place]; Service: Dental DENTAL RESTORATIONS N/A 11/05/2020 Procedure: DENTAL RESTORATIONS; Surgeon: Dru Friedman DDS; Location: [facility] Surgery [place]; Service: Dental Past Medical History and Review of Systems Pulmonary - negative ROS Dental Comment: Caries--s/p dental restorations x2 Endo (+) hypothyroidism Comment: Hyponatremia skate hop Comment: LMP: unknown Neuro/Psych (+) seizures, cerebral [...] 5:27 PM 12/26/2023 documented in this encounter [facility] 12-25-2023 History of Present illness Narrative Images from the original note were not included. Pre-Admission Testing Consultation Vee Sarabia, [id number] 38 year old Female 12/26/2023 Consult placed to [facility] by Dr. Almaraz due to significant PMH of caries. [facility] Triage Risk Score Total Score: 2 2 Patient is on more than 2 antihypertension medications. Vee Sarabia is scheduled for DENTAL RESTORATIONS on 01/08/2024. Pre-Op diagnosis of: Pre-Op Diagnosis Codes: * Caries [K02.9] HISTORY OF PRESENT ILLNESS: Patient presents today with a history of caries. Patient is here for pre-admission optimization and education prior to surgery. She is accompanied with her caregiver at [place], Dora Saucedo, who is helping review the patient's current and past medical history. Gabriela Rodriguez (mother--phone-- [phone]) is legal guardian. RECENT ILLNESS: Serious illness [...] DENTAL RESTORATIONS; Surgeon: Fernando Kurtz DDS; Location: [facility] Surgery [place]; Service: Dental DENTAL RESTORATIONS N/A 11/05/2020 Procedure: DENTAL RESTORATIONS; Surgeon: Dru Friedman DDS; Location: [facility] Surgery [place]; Service: Dental Past Medical History and Review of Systems Pulmonary - negative ROS Dental Comment: Caries--s/p dental restorations x2 Endo (+) hypothyroidism Comment: Hyponatremia skate hop Comment: LMP: unknown Neuro/Psych (+) seizures, cerebral [...] 5:27 PM 12/26/2023 documented in this encounter [facility] 12-25-2023 Note Pre-Admission Audrey mccall Consultation Vee Sarabia, [id number] 38 year old Female 12/26/2023 Consult placed to [facility] by Dr. Almaraz due to significant PMH of caries. [facility] Triage Risk Score Total Score: 2 2 Patient is on more than 2 antihypertension medications. Vee Sarabia is scheduled for DENTAL RESTORATIONS on 01/08/2024. Pre-Op diagnosis of: Pre-Op Diagnosis Codes: * Caries [K02.9] HISTORY OF PRESENT ILLNESS: Patient presents today with a history of caries. Patient is here for pre-admission optimization and education prior to surgery. She is accompanied with her caregiver at [place], Dora Saucedo, who is helping review the patient's current and past medical history. Gabriela Rodriguez (mother--phone-- [phone]) is legal guardian. RECENT ILLNESS: Serious illness [...] DENTAL RESTORATIONS; Surgeon: Fernando Kurtz DDS; Location: [facility] [place]; Service: Dental DENTAL RESTORATIONS N/A 11/05/2020 Procedure: DENTAL RESTORATIONS; Surgeon: Dru Friedman DDS; Location: [facility] Surgery [place]; Service: Dental Past Medical History and Review of Systems Pulmonary - negative ROS Dental Comment: Caries--s/p dental restorations x2 Endo (+) hypothyroidism Comment: Hyponatremia skate hop Comment: LMP: unknown Neuro/Psych (+) seizures, cerebral [...] MG t (more content not included)... [facility] 09-17-2023 Note [id number] [facility] 09-16-2023 Hospital Discharge instructions Patient Education 09/16/2023 08:49:14 Gastritis, Adult, Gokz-ss-Thpo Gastritis, Adult Gastritis is irritation and swelling [...] Follow these instructions at home: Medicines Take aqxq-ure-ggypjyw and prescription medicines only as told by [...] provider. Document Revised: 09/07/2021 Document Reviewed: 09/07/2021 [employer] Patient Education 2022 [employer]. 09/16/2023 08:49:01 Endoscopy, Care After Procedure [facility] ([facility]) Endoscopy Care After Procedure Please [...] Document Re-Released: 10/26/2006 ExitCare Patient Information 2009 [employer]. Follow Up Care 09/10/2023 09:54:49 With:Jessee Nina Address: [address] [place] [address], [address] [place] [address]- [phone] Business (1) When:1 to 2 weeks Comments:Call for any problems. [facility] 09-16-2023 Note Endoscopy Care After [...] Document Re-Released: 10/26/2006 ExitCare? Patient Information ?2009 [employer]. Infectious Disease Gastritis, Adult Gastritis is irritation [...] these instructions at home: Medicines ? Take fxrt-idz-gvqtbqj and prescription medicines only as told by [...] ask your do (more content not included)... [facility] 07-22-2022 History of Present illness Narrative ----- Friday, July 22, 2022 at 11:19:05 AM ----- ----- Provider: Grayson Ku, Resident -- Clinic: [place] ----- OR EVALUATION Patient presents for evaluation [...] Legal Guardian is Gabriela Rodriguez( Mother ): [phone] Ashlie Sarabia [phone] Contact information; [facility] [phone] Extension# [phone] Next Visit: OR ----- Signed on Friday, July 22, 2022 at 12:31:54 PM ----- ----- Provider: Charbel Jain DDS -- Clinic: [place] ----- documented in this encounter [facility] 07-14-2020 Note Patient Outreach (CO VAMN) VEE SARABIA ([id number]) 1985 F NFR Date Time Provider Department 07/14/20 PUMA SPEAR During your visit today, we recorded the following information about you: Allergies As of Date: 07/14/2020 Noted Allergy Reaction SEASONAL ALLERGIES 11/08/2010 16 - Unknown Date Reviewed: 07/05/2019 Reviewed by: Clover Ng Ma - Fully Assessed Order(s):SARS-COVID VACCINE 1ST DOSE APPT [[id number]] Order #: [id number] FUTURE Prescriptions as of 07/14/2020 Sig: FLUTICASONE [...] palsy (HCC) [G80.9] 06/26/2015 Encounter Status:Closed by SHERWIN DELCID on 07/17/20 [facility] Evaluation + Plan note No data available for this section [facility] Evaluation + Plan note Future Appointments Appointment Date:09/16/2023 08:00:00 AM Scheduled Provider: Location:[facility] Surgical Services Appointment Type:Surgery FT Future Scheduled TestsNM Gastric Emptying Study 09/10/23 [facility] Evaluation + Plan note Future Appointments Appointment Date:09/23/2023 10:30:00 AM Scheduled Provider: Location[facility] Appointment Type:NM Gastric Emptying Study (FT) Future Scheduled TestsNM Gastric Emptying Study 09/23/23 [facility] Evaluation note Diagnosis Caries- Primary [...] instructions No data available for this section [facility] No data available for this section [facility] Summary Purpose Family History No [...] Directives Records FoundNo Advanced Directives Records Found Reason for Referral Specialty Diagnoses / Procedures Referred By Contsaritha snyder Referred To Contact Oral Surgery Diagnoses Caries Stacie Torres DMD [address] [place] [address] Moo Olsen DMD, MD [address] [place] [address] Referral ID Status Reason Start Date Expiration Date V isits Requested Visits Authorized [id number] Pending Review 02/03/2024 02/02/2025 3 3 Scheduling Instructions Please call the rope rider Clinic at [facility] at to schedule an appointment if one was not made for you today. Question Answer Patient to be evaluated for: Extractions Tooth Number for Extraction Please evaluate patient for extractions of teeth # 12,13,14. Due to pt. custodial Fosamax usage. Additional Source Comments INFORMATION SOURCE (unrecogn ized section and content) DATE CREATED AUTHOR 06/15/2021 [facility] DATE CREATED AUTHOR AUTHOR'S ORGANIZ ATION 10/01/2022 [facility] DATE CREATED AUTHOR AUTHOR'S ORGANIZ ATION 09/28/2023 [facility] DATE CREATED AUTHOR AUTHOR'S ORGANIZ ATION 01/06/2024 [facility] DATE CREATED AUTHOR AUTHOR'S ORGANIZ ATION 01/11/2024 [facility] Care Teams (unrecognized sec tion and content) Coffee Maker Relationship Specialty Start Date End Date Rm Goldman DDS [address] [place] [address] Resident Dentistry 02/21/20 Mony Adler APRN-PAPER TWISTER TENDER [address] [place] [address] PAYING TELLER Anesthesiology 11/16/20 Coffee Maker Relationship Specialty Start Date End Date Rm Goldman DDS [address] [place] [address] Resident Dentistry 02/21/20 Mony Adler APRN-PAPER TWISTER TENDER [address] [place] [address] PAYING TELLER Anesthesiology 11/16/20 Coffee Maker Relationship Specialty Start Date End Date Rm Goldman DDS [address] [place] [address] Resident Dentistry 02/21/20 Mony Adler APRN-PAPER TWISTER TENDER [address] [place] [address] [place] [address] PAYING TELLER Anesthesiology 11/16/20 Coffee Maker Relationship Specialty Start Date End Date Rm Goldman [address] [address] Resident Dentistry 02/21/20 Mony Adler APRN-PAPER TWISTER TENDER [address] [place] [address] [place] [address] PAYING TELLER Anesthesiology 11/16/20 Coffee Maker Relationship Specialty Start Date End Date Rm Goldman [address] [address] Resident Dentistry 02/21/20 Mony Adler APRN-PAPER TWISTER TENDER [address] [place] [address] [place] [address] PAYING TELLER Anesthesiology 11/16/20 Coffee Maker Relationship Specialty Start Date End Date Rm Goldman DDS [address] [place] [address] Resident Dentistry 02/21/20 Mony Adler APRN-PAPER TWISTER TENDER [address] [place] [address] [place] [address] PAYING TELLER Anesthesiology 11/16/20 Coffee Maker Relationship Specialty Start Date End Date Susi RmKASSIDY [address] [place] [address] Resident Dentistry 02/21/20 Mony Adler APRN-CNP [address] [place] [address] [place] [address] PAYING TELLER Anesthesiology 11/16/20 Coffee Maker Relationship Specialty Start Date End Date Rm Goldman, S [address] [place] [address] Resident Dentistry 02/21/20 Mony Adler APRN-CNP [address] [place] [address] [place] [address] PAYING TELLER Anesthesiology 11/16/20 Coffee Maker Relationship Specialty Start Date End Date [facility] [address] [place] [address] Resident Dentistry 02/21/20 Mony Adler APRN-CNP [address] [place] [address] [place] [address] PAYING TELLER Anesthesiology 11/16/20 Coffee Maker Relationship Specialty Start Date End Date Rm Goldman, [facility] [address] [place] [address] Resident Dentistry 02/21/20 Mony Adler APRN-CNP [address] [place] [address] [place] [address] PAYING TELLER Anesthesiology 11/16/20 Reason for Visit (unrecogniz ed section and content) Reason Onset Date Comments Pre-surgical Evaluation 01/06/2024 DD adult dental restorations 01/07 under [facility] at [place]. PAT completed - consents obtained. MARY RN spoke to Cassidy, confirmed NPO except water only until 0900 (Cassidy stated pt does not like and will not drink water), [place] address, and 1100 arrival time Specialty Diagnoses / Procedures Referred By Ebony t Referred To Contact Ambulatory Surgery Diagnoses Caries Caries [K02.9] Procedures ANESTHESIA, INTRAORAL PROC, W/BX; NOS UNLISTED PROCEDURE, DENTOALVEOLAR STRUCTURES DENTAL RESTORATIONS Stacie Torres DMD [address] [place] [address] [employer] [address] [facility] [place] [address] Phone: [phone] Referral ID Status Reason Start Date Expiration Date Visits Re quested Visits Authorized [id number] 3 Reason Onset Date Comments Referral needs placed for OS 01/11/2024 Reason Onset Date Comments Refill 02/03/2024 Continuous Active and Recently Administ ered Medications [...] on Thu01/08/24 at 1333, Until Thu01/08/24 at 1617 1339 (Given - Provid er: Janie Coreas [...] BE BASED ON THE PRIMARY CLINICAL RECORDS. [facility]. provides no warranty or guarantee of the accuracy or completeness of information in this document.
--- NOTE | 2024-02-21 14:35 | ED.GENADUL1 ---
HPI HPI - General Adult General Chief complaint: Abdominal Pain Stated complaint: urinary problems Time Seen by Provider: 02/21/24 14:30 Mode of arrival: ambulance History of Present Illness HPI narrative: Patient presenting to the emergency department for evaluation of inability to void. Patient presenting with her parents. They state that they take her to the bathroom typically. They states she does not have a bowel movement or urinated in the last 24 hours. This is typically they bring her to the bathroom, she does wear a diaper but they will take her to the bathroom and she will urinate. She has not urinated in the last 24 hours. She has not been complaining to them of anything, but they know it is not normal for her. Related Data Home Medications ?Medication ?Instructions ?Recorded ?Confirmed acetaminophen 325 mg capsule 650 mg PO Q6H PRN pain 02/21/24 02/21/24 acyclovir 5 % topical ointment 1 applic topical BID 02/21/24 02/21/24 bisacodyl 10 mg rectal suppository 10 mg MO DAILY PRN constipation 02/21/24 02/21/24 cholecalciferol (vitamin D3) 25 25 mcg PO DAILY 02/21/24 02/21/24 mcg (1,000 unit) capsule divalproex 250 mg tablet,extended 750 mg PO QPM 02/21/24 02/21/24 release 24 hr divalproex 500 mg tablet,extended 500 mg PO BID 02/21/24 02/21/24 release 24 hr famotidine 20 mg tablet 20 mg PO DAILY 02/21/24 02/21/24 levetiracetam 500 mg tablet 500 mg PO BID 02/21/24 02/21/24 levothyroxine 75 mcg tablet 75 mcg PO DAILY 02/21/24 02/21/24 linaclotide 290 mcg capsule 290 mcg PO DAILY 02/21/24 02/21/24 (Linzess) loratadine 10 mg tablet 10 mg PO DAILY 02/21/24 02/21/24 montelukast 10 mg tablet 10 mg PO DAILY 02/21/24 02/21/24 naltrexone 50 mg tablet 100 mg PO BID 02/21/24 02/21/24 pantoprazole 40 mg tablet,delayed 40 mg PO QAM 02/21/24 02/21/24 release pregabalin 75 mg capsule 75 mg PO TID 02/21/24 02/21/24 risperidone 3 mg tablet 3 mg PO BID 02/21/24 02/21/24 sennosides 8.6 mg tablet (senna) 8.6 mg PO BID 02/21/24 02/21/24 Allergies Allergy/AdvReac Type Severity Reaction Status Date / Time No Known Drug Allergies Allergy Verified 02/21/24 14:12 Opioid HPI Opioid Management Most Recent Opioid Data: No Data to Display Review of Systems ROS Narrative Negative unless otherwise stated in the HPI Exam Narrative Exam Narrative: General: NAD, alert, oriented at baseline, baseline developmental delay Abdomen: Soft, ND/NT. No evidence of fluid wave. No pulsatile masses on exam, rebound tenderness, Gill sign or pain over Mcburney's point. No suprapubic pain tenderness Constitutional Vital Signs, click to edit/add: Last Vital Signs Temp 97.8 F 02/21/24 14:08 Pulse 84 02/21/24 15:37 Resp 18 02/21/24 15:37 BP 146/88 H 02/21/24 15:37 Pulse Ox 96 02/21/24 15:37 O2 Del Method Room Air 02/21/24 14:08 Course Vital Signs Vital signs: Vital Signs Temperature 97.8 F 02/21/24 14:08 Pulse Rate 86 02/21/24 14:08 Respiratory Rate 18 02/21/24 14:08 Blood Pressure 160/90 H 02/21/24 14:08 Pulse Oximetry 99 02/21/24 14:08 Oxygen Delivery Method Room Air 02/21/24 14:08 Temperature 97.8 F 02/21/24 14:08 Pulse Rate 84 02/21/24 15:37 Respiratory Rate 18 02/21/24 15:37 Blood Pressure 146/88 H 02/21/24 15:37 Pulse Oximetry 96 02/21/24 15:37 Oxygen Delivery Method Room Air 02/21/24 14:08 Medical Decision Making MDM Narrative Medical decision making narrative: MDM Patient with history as above presented with urinary retention. History obtained from parents Patient was nontoxic, stable. Ambulatory. Exam as above. Reviewed external records. Differential diagnosis considered. Overall presentation is consistent with urinary retention Postvoid residual of 345 Advanced guidance has been given. Vss, pex is benign at this time. Pt to fu with pcp 1-2 days for reeval, rter should sx worsen, persist or become worrysome in any way. Patient lives at a facility, her parents state that they she has no blood work filed here, but she has had electrolyte abnormalities in the past, can be followed up on by her physicians out there. She is still making urine, this was a urinary retention issue, Hunter catheter was placed with drainage. Outpatient follow-up with urology and [place] to remain in place All incidental laboratory studies, EKG, radiologic findings have been noted and discussed with patient. Patient was reevaluated with a benign exam at this time. Parents expressed understanding and agreement with plan of care at this time. Will fu as planned. Pt stable for discharge. Medical Records Medical records reviewed: Yes I reviewed the patient's medical records Lab Data Lab results reviewed: Yes I reviewed the patient's lab results Labs: Lab Results 02/21/24 02/21/24 Range/Units 14:52 15:08 Sodium 130 L (136-145) mmol/L Potassium 3.9 (3.5-5.1) mmol/L Chloride 97 L (98-107) mmol/L Carbon Dioxide 26.0 (21.0-32.0) mmol/L Anion Gap 10.9 BUN 11.0 (7.0-18.0) mg/dL Creatinine 0.60 (0.55-1.02) mg/dL Est GFR ( Amer) >60 (>=60 mL/min/1.73m^2) Est GFR (Non-Af Amer) >60 (>=60 mL/min/1.73m^2) BUN/Creatinine Ratio 18.3 Glucose 93 (74-106) mg/dL Calcium 8.4 L (8.5-10.1) mg/dL Urine Color Dk. yellow (YELLOW) Urine Clarity Clear (CLEAR) Urine pH 7.0 (5.0-9.0) Ur Specific [place] 1.020 (1.005-1.025) Urine Protein Negative (NEG/TRACE) mg/dL Urine Glucose (UA) Negative (NEGATIVE) mg/dL Urine Ketones Trace A (NEGATIVE) mg/dL Urine Occult Blood Negative (NEGATIVE) Urine Nitrite Negative (NEGATIVE) Urine Bilirubin Negative (NEGATIVE) Urine Urobilinogen 1.0 (0.2-1.0) EU/dL Ur Leukocyte Esterase Negative (NEGATIVE) Urine RBC 0-2 (0-2) #/HPF Urine WBC 0-2 A (NONE SEEN) #/HPF Ur Squamous Epith Cells Rare (NONE/RARE) #/LPF Urine Crystals None seen (None Seen) #/HPF Urine Bacteria None seen (NONE SEEN) #/HPF Urine Casts Seen A (NONE SEEN) #/LPF Hyaline Casts Few Urine Mucus Moderate A (NONE SEEN) Discharge Plan Discharge Chief Complaint: Abdominal Pain Clinical Impression: Acute urinary retention, Acute hyponatremia Patient Disposition: Home, Self-Care Time of Disposition Decision: 15:58 Condition: Good Prescriptions / Home Meds: No Action acyclovir 5 % ointment 1 applic TOPICAL BID Patient Comments: until cold sore is gone cholecalciferol (vitamin D3) 25 mcg (1,000 unit) capsule 25 mcg PO DAILY divalproex 500 mg tablet extended release 24 hr 500 mg PO BID divalproex 250 mg tablet extended release 24 hr 750 mg PO QPM famotidine 20 mg tablet 20 mg PO DAILY levetiracetam 500 mg tablet 500 mg PO BID levothyroxine 75 mcg tablet 75 mcg PO DAILY Linzess 290 mcg capsule 290 mcg PO DAILY loratadine 10 mg tablet 10 mg PO DAILY montelukast 10 mg tablet 10 mg PO DAILY naltrexone 50 mg tablet 100 mg PO BID pantoprazole 40 mg tablet,delayed release (DR/EC) 40 mg PO QAM pregabalin 75 mg capsule 75 mg PO TID risperidone 3 mg tablet 3 mg PO BID sennosides [senna] 8.6 mg tablet 8.6 mg PO BID acetaminophen 325 mg capsule 650 mg PO Q6H PRN (Reason: pain) bisacodyl 10 mg suppository 10 mg MO DAILY PRN (Reason: constipation) Patient Comments: if no BM in 5 days Print Language: Georgian Additional Instructions: Follow-up with your PCP in the next 1 to 2 days. Return to the emergency department should symptoms worsen or become worrisome in any way. Referrals: BALJIT PINEDO DO [Primary Care Provider] - 1 week
[2024-02-21 15:08] LABS: Anion Gap 10.9; BUN Creatinine Ratio 18.3; Calcium 8.4 mg/dL (8.5-10.1); Chloride 97 mmol/L (98-107); Estimated GFR (African America >60 (>=60 mL/min/1.73m^2); Estimated GFR (Non-African Ame >60 (>=60 mL/min/1.73m^2); Glucose 93 mg/dL (74-106); Potassium 3.9 mmol/L (3.5-5.1); Sodium 130 mmol/L (136-145)
[2024-02-21 15:24] LABS: Bilirubin Urine NEGATIVE (NEGATIVE); Blood Urine NEGATIVE (NEGATIVE); Clarity Urine CLEAR (CLEAR); Color Urine DK. YELLOW (YELLOW); Glucose Urine UA NEGATIVE (NEGATIVE); Ketones Urine TRACE mg/dL (NEGATIVE); Leukocyte Esterase Urine NEGATIVE (NEGATIVE); Nitrite Urine NEGATIVE (NEGATIVE); Protein Urine NEGATIVE (NEG/TRACE)
[2024-02-21 15:32] LABS: Bacteria Urine NONE SEEN #/HPF (NONE SEEN); Cast Seen? SEEN #/LPF (NONE SEEN); Crystals Seen? None Seen #/HPF (None Seen); Hyaline Casts Urine FEW; Mucus Urine MODERATE (NONE SEEN); RBC Urine 0-2 #/HPF (0-2); Squamous Epithelial Cell Urine RARE #/LPF (NONE/RARE); WBC Urine 0-2 #/HPF (NONE SEEN)
[2024-02-21 15:37] VITALS: BP 146/88; PULSE 84; O2SAT 96
== END 2024-02-21 16:16 | disposition home or self-care (01) ==
PROVIDERS: Emergency Provider Emergency Medicine; PCP Family Medicine
DX: E87.1 Hypo-osmolality and hyponatremia (principal); R33.9 Retention of urine, unspecified
CPT/HCPCS: 36415; 51798; 80048; 81001; 99284

== ENCOUNTER 2024-03-29 06:55 | Outpatient (OUT) | payer MEDICAID, SELFPAY ==
--- OUTSIDE RECORDS SUMMARY | 2024-03-29 06:57 | XMS_ITS | CCD ---
Author Organization [facility] CliniSynm Care Team Providers Care Custodial Maintenance Worker Name Role Phone Rm Goldman DDS Unavailable [...] Medication Allergies] Propensity to adverse reactions (disorder) [facility] Repository (9 sources) Diazepam; Translations: [DIAZEPAM] Propensity to adverse reactions to drug 4 [facility] (9 sources) diphenhydrAMINE; Translations: [DIPHENHYDRAMINE ] Drug Allergy 4 [facility] (9 sources) trichloroacetald ehyde; Translations: [CHLORAL HYDRATE] Drug Allergy 4 [facility] Medications Current Medications Medication Drug Class(es) [...] Ordered Start: 10-17-2020 take 1 capsule by [facility] once daily Linzess 145 MCG CAPS [...] Status: Ordered take 1 capsule by mo [facility] three times daily pregabalin (LYRICA) 75 MG [...] (Discontinued by another Health Care Provider) sennosides, [facility] (13 sources) Start: 09-10-2023 senna Oral, BI [...] 07-29-2013 Chronic Other aftercare (5 sources) Other nursing home (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; Translations: [OTH SAMPLE BOX MAKER CURRENT DRUG THERAPY] Onset: 2 Episodic Other [...] Episodic Other nervous system disorders (9 sources) [employer] gait; Translations: [Other abnormalities of gait and mobility] Onset: 12-09-2010 07-22-2022 Episodic Results Test Name Value Interpretation Reference Range Facility Telephone Encounteron 2023 Geotechnical Department Manager Authentication Interface Message Text pt was seen in OR 01/08/24 , Stacie Montalvo DMD recommended that the pt be seen by [facility] fro care AND follow up. in progess notes it states Referral placed to [facility] but NO referral can be found in pt's chart. please place referral for oral surgery. Message sent to [facility] Kary on January 13 2024 board. Message placed on board 01/11/24 @ 1152 am Normal [facility] Anesthesia Postprocedure Felicia luationon 01-08-2024 Geotechnical Department Manager Authentication Interface Message Text Anesthesia Postoperative Assessment: [...] EVENTS: No notable events documented. Normal [facility] Anesthesia Preprocedure Eval uationon 01-08-2024 Geotechnical Department Manager Authentication Interface Message Text ASA: 3 No [...] previous ECGs available Confirmed by LORENZA PARKS ([id number]) on 12/28/2023 8:11:02 PM GI/Hepatic/Renal Comment: - S/P cholecystectomy 2009 Heme/Other - negative ROS Other ROS: - Hx. Of dental restorations - Seasonal allergies - Gabriela Rodriguez (mother--phone-- [phone]) is legal guardian Physical Exam Airway Mallampati: [...] alternatives discussed pre-op (Anesthesia consent scanned into [employer].) Questions answered / anesthesia plan accepted (Anesthesia consent scanned into Ohm[employer].) Past medical history, surgical history, allergies, and medications reviewed and Pertinent laboratory tests, EKG, imaging, and consults reviewed Attestation: Anesthesia options were discussed with the patient and/or legal inside account representative. The risks, benefits and alternatives were reviewed. Questions regarding anesthesia were answered. Patient and/or legal inside account representative knows such anesthetics and procedures may be performed by Resident physicians, Certified Anesthesiologist Assistants, or Certified Nurse Anesthetists under the supervision of a physician. The patient /or the patient's legal inside account representative agree with the plan for anesthesia. Comment: Anesthesia consent scanned into [employer]. MHPATFORM Normal [facility] Geotechnical Department Manager Authentication Interface Message Text Patient taken to [...] DENTAL RESTORATIONS; Surgeon: Fernando Kurtz DDS; Location: [facility] [place]; Service: Dental DENTAL RESTORATIONS (11/05/2020) Procedure: DENTAL RESTORATIONS; Surgeon: Dru Friedman DDS; Location: [facility] [place]; Service: Dental Allergies: Benadryl [diphenhydramine], Chloral hydrate, and Valium [diazepam] Basic Operating Room Facts: Surgeon(s): Stacie Torres DMD Anesthesiologist: Justin Shin MD CAA: Eduarda James CAA Estimator Jewelry: Dania Melara MD DENTAL RESTORATIONS Intraoperative Events: [...] was received. Justin Shin MD Normal [facility] Blood Attestationon 01-08-20 Geotechnical Department Manager Authentication Interface Message Text Blood Attestation: ATTESTATION OF INFORMED CONSENT FOR BLOOD: The transfusion of blood and/or blood components were discussed with the patient and/or legal inside account representative. The risks, benefits and alternatives were reviewed. Questions regarding blood transfusions were answered. The patient /or the patient's legal inside account representative agree with the plan for transfusion of blood and/or blood components. Normal [facility] Brief Operative Noteon 01-07 Geotechnical Department Manager Authentication Interface Message Text Brief Operative Note [facility] OR 3 Vee Sarabia 38 year old female Surgical Contact Serial Number: [id number] Preoperative Diagnosis: ADHD (attention deficit hyperactivity disorder) ([facility]) 10/08/2007 Anorexia 03/16/2008 Cerebral palsy ([facility]) 10/08/2007 Late effect of adverse effect of drug, medical or biological substance 05/02/2009 Mental impairment ([facility]) 10/08/2007 Mental retardation Other bipolar disorder ([facility]) 10/08/2007 Other conduct disorders ([facility]) 10/08/2007 Seizure disorder ([facility]) 10/08/2007 Postoperative Diagnosis: ADHD (attention deficit hyperactivity disorder) ([facility]) 10/08/2007 Anorexia 03/16/2008 [place] 10/08/2007 Late effect of adverse effect of drug, medical or biological substance 05/02/2009 Mental impairment [place] 10/08/2007 Mental retardation Other bipolar disorder [place] 10/08/2007 Other conduct disorders [place] 10/08/2007 Seizure disorder [place] 10/08/2007 Procedures: Full mouth X-ray [81283] Full mouth cleaning [02728] Restorations [19788] Surgeon(s): Surgeon(s): Stacie Torres DMD Yoris, Orlando, DDS Staff: Facs Teacher Nurse: Gabriel Hinkle Rn Baby: Chandler Parham DDS Anesthesia: General Anesthesiologist: Justin [...] Marin DDS 01/08/2024 1:48 PM Normal [facility] HCG, QUANTITATIVEon 01-08-20 24 [facility] Interpretation and review of laboratory results [facility] HCG < 0.6 Normal <5.0 [facility] Comment on above: Performed By: #### H CG #### [facility] [address] [place], [address] OP Noteon 01-08-2024 Geotechnical Department Manager Authentication Interface Message Text Operative Note [facility] OR 3 Vee Sarabia 38 year old female Surgical Contact Serial Number: [id number] Preoperative Diagnosis: ADHD (attention deficit hyperactivity disorder) [place] 10/08/2007 Anorexia 03/16/2008 Cerebral palsy [place] 10/08/2007 Late effect of adverse effect of drug, medical or biological substance 05/02/2009 Mental impairment [place] 10/08/2007 Mental retardation Other bipolar disorder [place] 10/08/2007 Other conduct disorders [place] 10/08/2007 Seizure disorder [place] 10/08/2007 Postoperative Diagnosis: ADHD (attention deficit hyperactivity disorder) [place] 10/08/2007 Anorexia 03/16/2008 Cerebral palsy [place] 10/08/2007 Late effect of adverse effect of drug, medical or biological substance 05/02/2009 Mental impairment [place] 10/08/2007 Mental retardation Other bipolar disorder [place] 10/08/2007 Other conduct disorders [place] 10/08/2007 Seizure disorder [place] 10/08/2007 Surgeon: Stacie Torres DMD [employer] Crewmember Surgeon: Chandler Marin DDS Anesthesia: General- Nasal [...] Marin DDS 01/08/2024 1:53 PM Normal [facility] Progress Noteson 01-08-2024 Geotechnical Department Manager Authentication Interface Message Text [id number] Discharge instructions reviewed, caregiver states pt on mouth was at home therefore does not wish to wait for prescription Normal [facility] Geotechnical Department Manager Authentication Interface Message Text ----- Monday, January 08, 2024 at 3:45:54 PM ----- ----- Provider: Jarrett Torres DMD -- Clinic: [facility] ----- Pt was seen in OR under general anesthesia. comp exam, FMX and 4 quads SRP completed. Topical fluoride applied. #8 MIDLF broken tooth restored with composite. #12,13,14 present with non- restorable cervical lesions interproximally. 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 Referral placed to [facility] See note attached. Operative Note [facility] OR 3 Vee Sarabia 38 year old female Surgical Contact Serial Number: [id number] Preoperative Diagnosis: ADHD (attention deficit hyperactivity disorder) ([facility]) 10/08/2007 Anorexia 03/16/2008 Cerebral palsy ([facility]) 10/08/2007 Late effect of adverse effect of drug, medical or biological substance 05/02/2009 Mental impairment ([facility]) 10/08/2007 Mental retardation Other bipolar disorder ([facility]) 10/08/2007 Other conduct disorders ([facility]) 10/08/2007 Seizure disorder ([facility]) 10/08/2007 Postoperative Diagnosis: ADHD (attention deficit hyperactivity disorder) ([facility]) 10/08/2007 Anorexia 03/16/2008 Cerebral palsy ([facility]) 10/08/2007 Late effect of adverse effect of drug, medical or biological substance 05/02/2009 Mental impairment ([facility]) 10/08/2007 Mental retardation Other bipolar disorder ([facility]) 10/08/2007 Other conduct disorders ([facility]) 10/08/2007 Seizure disorder ([facility]) 10/08/2007 Surgeon: Stacie Torres DMD [employer] Crewmember Surgeon: Chandler Marin DDS Anesthesia: General- Nasal [...] at end of surgery: Stable Normal [facility] Anesthesia Preprocedure Eval uationon 01-07-2024 Geotechnical Department Manager Authentication Interface Message Text ASA: 3 Past [...] previous ECGs available Confirmed by LORENZA PARKS ([id number]) on 12/28/2023 8:11:02 PM GI/Hepatic/Renal Comment: - S/P cholecystectomy 2009 Heme/Other Other ROS: - Hx. Of dental restorations - Seasonal allergies - Gabriela Rodriguez (mother--phone-- [phone]) is legal guardian Physical Exam Airway Dental Dentition: dental caries. Pulmonary Cardiovascular Neuro Disoriented and motor deficit Comment: Cerebral palsy Plan Anesthesia plan: general; (ETT) Anesthesia risks / alternatives discussed pre-op (Anesthesia consent scanned into Ohm[employer].) Questions answered / anesthesia plan accepted (Anesthesia consent scanned into Ohmconnect.) Past medical history, surgical history, allergies, and medications reviewed and Pertinent laboratory tests, EKG, imaging, and consults reviewed Attestation: Comment: Anesthesia consent scanned into Ohmconnect. MHPATFORM Normal [facility] EKG 12 LEAD - PERFORMon 12-16 Diagnosis Normal sinus rhythm Nonspecific T wave abnormality Abnormal ECG No previous ECGs available Confirmed by LORENZA PARKS ([id number]) on 12/28/2023 8:11:02 PM [facility] P wave Atrium by EKG 75 BPM [facility] P wave axis 23 degrees [facility] P-R Interval 130 ms [facility] Q-T interval 390 ms [facility] Q-T interval corrected 435 ms [facility] QRS axis 42 degrees [facility] QRS duration 86 ms [facility] T wave axis 16 degrees [facility] Telephone Encounteron 2023 Geotechnical Department Manager Authentication Interface Message Text Anesthesia consent scanned into [facility]. Normal [facility] BASIC METABOLIC PANELon 08 Anion gap [Moles/Vol] 13 mmol/L Normal 10-[address] [facility] Comment on above: Performed By: #### C H8 #### [facility] [address] [place] [address], Calcium [Mass/Vol] 9.0 mg/dL Normal 8.6-10.3 [facility] Comment on above: Performed By: #### C H8 #### [facility] [address] [place] [address], Chloride [Moles/Vol] 102 mmol/L Normal 98-107 [facility] Comment on above: Performed By: #### C H8 #### [facility] [address] [place] [address], CO2 [Moles/Vol] 23 mmol/L Normal 21-31 [facility] Comment on above: Performed By: #### C H8 #### [facility] [address] [place] [address], Creatinine [Mass/Vol] 0.36 mg/dL Low 0.60-1.20 [facility] Comment on above: Performed By: #### C H8 #### [facility] [address] [place] [address], ESTIMATED GFR (CKD-EPI) 133 mL/min/1.73sqm Normal >=60 [facility] Comment on above: Result Comment: [...] Inclusion of Race in Diagnosing Kidney Disease. Greek Journal of Kidney Diseases 202;79(2):268-88.e1. 2. N Engl J Med 1 Vol. 385 Issue 19 Pages 1715-5056 Performed By: #### C H8 #### [facility] [address] [place] [address], Glucose [Mass/Vol] 85 mg/dL Normal 74-109 [facility] Comment on above: Performed By: #### C H8 #### [facility] [address] [place], [place], Potassium [Moles/Vol] 4.4 mmol/L Normal 3.5-5.0 [facility] Comment on above: Performed By: #### C H8 #### [facility] [address] [place] [address], Sodium [Moles/Vol] 134 mmol/L Low 136-145 [facility] Comment on above: Performed By: #### C H8 #### [facility] [address] [place] [address], Urea nitrogen [Mass/Vol] 7 mg/dL Normal 7-25 [facility] Comment on above: Performed By: #### C H8 #### [facility] [address] [place] [address], Basic metabolic 2000 panelon 12-25-2023 Anion gap [Moles/Vol] 13 mmol/L 10 - 20 [facility] Calcium [Mass/Vol] 9.0 mg/dL 8.6 - 10. [...] Inclusion of Race in Diagnosing Kidney Disease. Greek Journal of Kidney Diseases 202;79(2):268-88.e1. 2. N Engl J Med 2020 Vol. 385 Issue 19 Pages 9580-2157 Glucose [Mass/Vol] 85 mg/dL 74 - 109 [...] on above: Performed By: #### C BC ####[facility] [id number] [place], [place], Hematocrit (Bld) [Volume fraction] 33.5 % Low 36.0-46.[address] [facility] Comment on above: Performed By: #### C BC ####[facility] [id number] [place], [place], Hemoglobin (Bld) [Mass/Vol] 10.8 g/dL Low 12.0-15.[address] [facility] Comment on above: Performed By: #### C BC ####[facility] [id number] [place], [place], MCH (RBC) [Entitic mass] 31.1 pg Normal 26.0-34.0 [facility] Comment on above: Performed By: #### C BC ####[facility] [id number] [place], [place], MCHC (RBC) [Mass/Vol] 32.3 g/dL Normal 32.0-35.[address] Comment on above: Performed By: #### C BC ####[facility] [id number] [place], [place], MCV (RBC) [Entitic vol] 96 fL Normal 80-100 T [facility] Comment on above: Performed By: #### C BC ####[facility] [id number] [place], [place], Platelet mean volume (Bld) [Entitic vol] 9.3 fL Normal 7.5-11.[address] [facility] Comment on above: Performed By: #### C BC ####[facility] [id number] [place], [place], Platelets (Bld) [#/Vol] 425 10*3/uL High 150-[address] [facility] Comment on above: Performed By: #### C BC ####[facility] [id number] [place], [place], RBC (Bld) [#/Vol] 3.48 10*6/uL Low 4.00-5.20 [facility] Comment on above: Performed By: #### C BC ####[facility] [id number] [place], [place], WBC (Bld) [#/Vol] 5.3 10*3/uL Normal 4.5-11.5 [facility] Comment on above: Performed By: #### C BC ####[facility] [id number] [place], [place], Patient Instructionson 12-24 Geotechnical Department Manager Authentication Interface Message Text On the morning [...] for pain Please hold all Vitamin E, [place] 3, fish oil and herbal supplements for 1 week prior to surgery Please hold Naltrexone 3 days prior to surgery. Last dose on 01/03. Please use this CHECKLIST to prepare for your surgery/procedure: ? Assume that any lab or testing done during your Pre-admission testing appointment is within normal limits unless otherwise contacted. ? Expect a call from [facility] one business day prior to surgery for [...] your Preparing for Your Surgery/Procedure booklet or [email or web address] if you have questions. Contact the Pre-Admission Testing department at [phone] or your surgeon's office with any questions [...] stay with you after surgery. Please call [facility] if you need transportation assistance or have concerns about going home [phone]. ? PEDIATRIC or ADOLESCENTS: Parents or a [...] result (more content not included)... Normal [facility] Progress Noteson 12-10-2023 Geotechnical Department Manager Authentication Interface Message Text Parent/guardian/patient was contacted for PSE AND OR scheduled -- confirmed information with mom, also informed mom importance of receiving PSE call -- if not received surgery will be canceled OR date 01/08/2024 ----- , December 10, 2023 at 11:39:35 AM ----- ----- Provider: NACHO [facility] [employer] -- Clinic: [place] ----- Normal [facility] NM Gastric Emptying Studyon 09-27-2023 NM [...] 30.4 3.0 hr (Upper Limit 30%) 1.5 [facility] Consent for Treatmenton Consent for Treatment [id number] F [facility] IntraOperative Documentson 0 09-18-2023 IntraOperative Documents [id number] F [facility] Progress Note-Physicianon Progress Note-Physician Patient: VEE [...] mental retardation (I.Q. 20-34) / SNOMED CT 26573767 / Confirmed Seizure disorder / SNOMED CT 284440207 / Confirmed Seasonal allergy / SNOMED CT 8596334579 / Confirmed Pervasive developmental disorder / SNOMED CT 60982846 / Confirmed Osteoporosis / SNOMED CT 993092273 / Confirmed Impulse control disorder / SNOMED CT 509636940 / Confirmed Disruptive behavior disorder / SNOMED CT 42780786 / Confirmed Constipation / SNOMED CT 50872004 / Confirmed Cholelithiasis / SNOMED CT 832165748 / Confirmed Cerebral palsy / SNOMED CT 356142067 / Confirmed Bipolar / SNOMED CT 873698801 / Confirmed Histories Procedure history: No active procedure history items have been selected or recorded. Social History Social & Psychosocial Habits Tobacco 09/10/2023 Tobacco Use: Never (less than 100 in l Smokeless tobacco use: Never . Physical Examination Airway: Mallampati classification: II (soft palate, fauces, uvula visible). Respiratory: adequate air exchange. Cardiovascular: Regular rhythm. Plan [employer] Society of Anesthesiologists (ASA) physical status classification: Class III. Anesthetic Preoperative Plan: Anesthesia General. Normal [facility] Comment on above: Result Comment: Elec [...] when meets criteria ( To home ). [facility] Comment on above: Result Comment: Elec tronically Signed By: Chaim Phillips Jr, DO\ivan\Date and Time Signed: 09/18/23 08:45 EDT Consenton 09-17-2023 Consent [id number] FF [facility] Discharge Instructionson Discharge Instructions [id number] FF [facility] Main OR Intraoperative Recor don 09-17-2023 Main OR Intraoperative Record IntraOp Document Type FT Summary Primary Physician: Kelle RAMIREZ, Jessee Chester Finalized Date/Time: 09/17/23 09:56:06 Pt. Name: VEE SARABIA /Sex: 1985 Female Med Rec #: [id number] Physician: Jessee Nina MD Financial #: [id number] Pt. Type: O Room/Bed: / Admit/Disch: 09/16/23 [...] 3 Case Attendee Margret SALMON, James Haynes DIGITAL ACCOUNT SUPERVISOR, Josefa Nina MD, Jessee Cerda Role Performed Anesthesiologist Scrub - Primary Surgeon - Primary [employer] Crewmember Time In 09/16/23 08:21:00 09/16/23 08:21:00 09/16/23 08:21:00 Time Out 09/16/23 08:33:00 09/16/23 08:33:00 09/16/23 08:33:00 Procedure EGD(.) EGD(.) EGD(.) Comments Dr. Phillips is supervising Last Modified By: Kevin HERMOSILLO, Wendy Brown RN, Wendy Dennis RN 09/16/23 08:32:53 09/16/23 08:32:53 09/16/23 08:32:53 Entry 4 Case Attendee Wendy Brown RN Role Performed Facs Teacher - Primary Time In 09/16/23 08:21:00 Time [...] Out James Sidhu Given Participants Ivy Gonsales DIGITAL ACCOUNT SUPERVISOR, Kelle Bean MD, Jessee Chester, Wendy Brown [...] and tissue Entry 1 Skin Integrity Intact, [place], Warm, and Skin Abnormality No Dry Outcomes [...] Leg Po (more content not included)... Normal [facility] Consent for Treatmenton Consent for Treatment [id number] F Normal [facility] Discharge Instructionson Discharge Instructions VEE SARABIA [...] weeks Comments: Call for any problems. Where: [facility] [address] [place] [address]- [phone] Business (1) Medications What How Much When [...] medicines, such (more content not included)... Normal [facility] Comment on above: Result Comment: Elec [...] status post biopsies. Images Procedure images: Rec1_hd_video_ [id number] Rec1_hd_video_ [id number] Rec1_hd_video_ [id number] Rec1_hd_video_ [id number].jpg . Post-Procedure Complications: none. Estimated blood loss: minimal. Specimens: sent to pathology. Devices/ implants: none left in place. Impression and Plan irregular Z-line Gastropathy fundic gland polyps Status post biopsies from stomach and duodenum Recommendations: -Resume previous diet -Resume home medications -Await pathology results Normal [facility] Comment on above: Other Comment: Melissa calderón Attachment - attachment storage system not supported [id number] Can be viewed in source system Missing Attachment - attachment storage system not supported [id number] Can be viewed in source system Missing Attachment - attachment storage system not supported [id number] Can be viewed in source system Missing Attachment - attachment storage system not supported [id number] Can be viewed in source system Main OR PACU I Recordon 05-0 Main OR PACU I Record PACU Phase I Docum ent Type FT Summary Primary Physician: Kelle RAMIREZ, Jessee Chester Finalized Date/Time: 09/16/23 09:20:05 Pt. Name: VEE SARABIA Tawanda Bolaños./Sex: 1985 Female Med Rec #: [id number] Physician: Jessee Nina MD Financial #: [id number] Pt. Type: O Room/Bed: / Admit/Disch: 09/16/23 [...] By: Stacie Prescott RN 09/16/23 09:20 Normal [facility] Main OR Preoperative Recordo n 09-16-2023 Main OR Preoperative Record Holding Area Document Type FT Summary Primary Physician: Jessee Nina MD Finalized Date/Time: 09/16/23 07:37:45 Pt. Name: VEE SARABIA Tawanda Moses/Sex: 1985 Female Med Rec #: [id number] Physician: Jessee Nina MD Financial #: [id number] Pt. Type: O Room/Bed: / Admit/Disch: 09/16/23 [...] Adult Bill- staff from [facility]op adult [facility] Case Cancelled in No Holding Area see comments below for reason Last Modified By: Vanessa Roy RN 09/16/23 07:35:16 General Comments: Caregiver, Bill present with patient from [facility] [place]. /,RN Finalized By: Vanessa Roy RN Document Signatures Signed By: Vanessa Roy RN 09/16/23 07:37 Normal [facility] Monitor Recordon 09-16-2023 Monitor Record [id number] FF Normal [facility] Monitor Record [id number]#1.00TI FF Normal [facility] Consent for Procedure/Surger yon 09-11-2023 Consent for Procedure/Surgery [id number]#1.00TI FF [facility] Ambulatory Visit Summaryon 0 09-10-2023 Ambulatory [...] vomiting Invalid Interpretation Code Early satiety [facility] Gastroenterology Office/Clin ic Noteon 09-10-2023 Gastroenterology Office/Clinic Note Chief Complaint nausea/vomiting, constipation, weight loss HPI Staff Patient is a 38 year old female who was referred by [facility] for nausea and vomiting. Intermittent nausea and [...] diphtheria/pertussis, acel/tetanus adult 08/14/2022 Recorded SARS-CoV-2 (COVID-19) mRNAMUL.ORD![id number] 08/14/2022 Recorded influenza virus vaccine, inactivated 03/05/2022 Recorded SARS-CoV-2 (COVID-19) mRNAMUL.ORD![id number] 03/05/2022 Recorded 2023-09-09: TPVALL influenza virus vaccine, [...] Recorded measles/mumps/rubella virus vaccine 11/15/1986 Recorded Normal [facility] Comment on above: Result Comment: Elec tronically Signed By: Kelle RAMIREZ, Jessee Andrade.br\Date and Time Signed: 09/10/23 09:40 EDT [facility] Record[facility] 09-09 [facility] [id number]#[id number] F Normal [facility] CBC w/Indiceson 04-01-2023 Erythrocyte distribution width (RBC) [Ratio] 15.4 % High 10.9-14.2 [facility] Comment on above: Performed By: #### 2 296837, 7261957, 1412816, 5668618, 3205430, 1730243, 9932791, 83666724, 2789252, 2710222 ####[facility] [address] [place] [address] Hematocrit (Bld) [Volume fraction] 37.4 % Normal 34.0-46.0 [facility] Comment on above: Performed By: #### 2 678479, 2200553, 1030385, 7361770, 9514645, 8110743, 4929959, 20294061, 7396300, 0570538 ####[facility] [address] [place] [address] Hemoglobin (Bld) [Mass/Vol] 12.1 g/dL Normal 12.0-16.0 [facility] Comment on above: Performed By: #### 2 340513, 4829999, 1282997, 7456887, 3374152, 9848070, 8994744, 37720897, 6728613, 5044119 ####[facility] [address] [place] [address] MCH (RBC) [Entitic mass] 30.9 pg Normal 27.0-34.0 [facility] Comment on above: Performed By: #### 2 845822, 3176092, 1341003, 3952522, 3400080, 0201563, 5589362, 96639728, 5232652, 7542565 ####[facility] [address] [place] [address] MCHC (RBC) [Mass/Vol] 32.4 g/dL Normal 31.4-36.0 [facility] Comment on above: Performed By: #### 2 037966, 7271382, 0970178, 8700910, 9892856, 3121583, 4170297, 55683077, 3187241, 7584718 ####[address] [address] MCV (RBC) [Entitic vol] 95.6 fL Normal 80.0-100.[address] [facility] Comment on above: Performed By: #### 2 300507, 2436296, 9296509, 6573350, 9202332, 8109706, 1453094, 90877118, 0286817, 0077128 ####[address] [place] [address] Platelet mean volume (Bld) [Entitic vol] 12.2 fL High 6.4-10.8 [facility] Comment on above: Performed By: #### 2 240272, 6565919, 0367895, 0604788, 5154693, 0585280, 3614016, 00900669, 7959689, 3656232 ####[address] [place] [address] Platelets (Bld) [#/Vol] 309.0 E9/L Normal 150. 0-500. 0 [facility] Comment on above: Performed By: #### 2 880906, 8401702, 2509875, 9059174, 7268056, 3094810, 7466157, 50917953, 3324555, 0587628 ####[facility] [address] [place] [address] RBC (Bld) [#/Vol] 3.9 E12/L Low 4.3-5.9 [facility] Comment on above: Performed By: #### 2 891987, 1669841, 5734607, 6121030, 9422422, 1311674, 4119135, 84546751, 1781682, 0313756 ####[facility] [address] [place] [address] WBC corrected for nucl RBC Auto (Bld) [#/Vol] 6.5 E9/L Normal 4.0-11.0 [facility] Comment on above: Performed By: #### 2 182452, 4550003, 5041087, 1711519, 4974965, 2765733, 8533961, 31801870, 1713069, 0778957 ####[facility] [address] [place] [address] CHEMISTRYOrdered By: SYSTEM SYSTEM on 04-01-2023 Albumin [...] 04-01-2023 Albumin [Mass/Vol] 3.7 g/dL Normal 3.3-5.0 [facility] Comment on above: Performed By: #### 2 724514, 9168770, 4153110, 1013228, 9060935, 7420628, 9058472, 57738197, 0824996, 2558482 ####[facility] [address] [place] [address] Albumin/Globulin (S) [Mass conc ratio] 1.2 Normal 1.1-2.2 [facility] Comment on above: Performed By: #### 2 865610, 7990373, 2746817, 1797495, 6446057, 1986753, 6118740, 09447711, 6984646, 9729598 ####[facility] [address] [place] [address] ALP [Catalytic activity/Vol] 32 Int._Unit/L Normal 21-98 [facility] Comment on above: Performed By: #### 2 027505, 8670045, 3419042, 2105800, 6071676, 9968701, 1814622, 44377204, 6524495, 3974085 ####[facility] [address] [place] [address] ALT No additional P-5'-P [Catalytic activity/Vol] 24 Int._Unit/L Normal 6-46 [facility] Comment on above: Performed By: #### 2 783861, 5605786, 3824336, 3343377, 2277618, 7046924, 5773701, 17792131, 3446028, 6200611 ####[facility] [address] [place] [address] Anion gap [Moles/Vol] 13 mmol/L Normal 6-16 [facility] Comment on above: Performed By: #### 2 913585, 6231074, 9928684, 3619069, 6175697, 7127676, 2672751, 39202370, 4612723, 5805424 ####[facility] [address] [place] [address] AST [Catalytic activity/Vol] 28 Int._Unit/L Normal 5-43 [facility] Comment on above: Performed By: #### 2 534473, 1374608, 5754448, 8609200, 8691847, 1740717, 9874027, 84367148, 2822733, 7288946 ####[facility] [address] [place] [address] Bilirubin [Mass/Vol] 0.1 mg/dL Normal 0.0-1.1 [facility] Comment on above: Performed By: #### 2 767635, 5739760, 2179318, 9365232, 4739718, 5857528, 1026502, 23574172, 8627795, 8331408 ####[facility] [address] [place] [address] Calcium [Mass/Vol] 8.9 mg/dL Normal 8.9-11.1 [facility] Comment on above: Performed By: #### 2 832531, 8507230, 2206578, 3161604, 9527536, 8558310, 7491383, 30179677, 1776000, 8865567 ####[facility] [address] [place] [address] Chloride [Moles/Vol] 98 mmol/L Low 101-111 [facility] Comment on above: Performed By: #### 2 632653, 7374408, 2398852, 3335316, 8505573, 2584663, 8084199, 45477111, 3390523, 4724450 ####[facility] [address] [place] [address] CO2 [Moles/Vol] 24 mmol/L Normal 21-31 [facility] Comment on above: Performed By: #### 2 799881, 3826166, 4161624, 5963779, 4629571, 5239212, 0228415, 80158656, 2355450, 2335084 ####[facility] [address] [place] [address] Creatinine [Mass/Vol] 0.5 mg/dL Normal 0.5-1.3 [facility] Comment on above: Performed By: #### 2 381728, 4611673, 4254486, 8963838, 9791402, 6030073, 6076008, 55232320, 3015552, 0017067 ####[facility] [address] [place] [address] Globulin (S) [Mass/Vol] 3.2 g/dL Normal 1.4-4.[address] [facility] Comment on above: Performed By: #### 2 533098, 3332473, 7831410, 1089984, 2361931, 3454040, 9629399, 99952941, 5758712, 9584866 ####[facility] [address] [place] [address] Glucose [Mass/Vol] 86 mg/dL Normal 55-199 [facility] Comment on above: Result Comment: If t his glucose result represents a fasting glucose, interpretation should refer to the following reference range: 55-99 mg/dL Performed By: #### 2 540191, 5761617, 3421951, 9628954, 0129571, 4824411, 1769083, 23000945, 1920211, 7115249 ####[facility] [address] [place] [address] Potassium [Moles/Vol] 4.3 mmol/L Normal 3.5-5.3 [facility] Comment on above: Performed By: #### 2 716336, 2086273, 3556099, 7257820, 1855958, 1100408, 6139359, 16329247, 7929452, 3635086 ####[facility] [address] [place] [address] Protein [Mass/Vol] 6.9 g/dL Normal 6.0-7.8 [facility] Comment on above: Performed By: #### 2 319798, 0355118, 4653097, 9502599, 3251322, 6342794, 5021707, 71015549, 7560866, 0202775 ####[facility] [address] [place] [address] Sodium [Moles/Vol] 131 mmol/L Low 135-145 [facility] Comment on above: Performed By: #### 2 202057, 2474532, 3417542, 4830394, 9565170, 2609002, 2392885, 62645889, 3838049, 8142989 ####[facility] [address] [place] [address] Urea nitrogen [Mass/Vol] 8 mg/dL Normal 5-21 [facility] Comment on above: Performed By: #### 2 869869, 5633694, 1789596, 1165396, 9996665, 8968078, 2961278, 61432103, 7481347, 0026852 ####[facility] [address] [place] [address] Urea nitrogen/Creatinine [Mass ratio] 16 No Units Normal 10-20 [facility] Comment on above: Performed By: #### 2 036203, 5187514, 4328385, 6696414, 1856373, 7428027, 2745634, 60920968, 4915241, 8165899 ####[facility] [address] [place] [address] Carbamazepineon 04-01-2023 carBAMazepine [Mass/Vol] 4.4 microgram/mL Normal 4.0-1 2.0 [facility] Comment on above: Performed By: #### 2 993205, 5545740, 2723447, 8867403, 8108543, 7431182, 7542226, 41930281, 7478971, 1028965 ####[facility] [address] [place] [address] Ferritinon 04-01-2023 Ferritin [Mass/Vol] 39 ng/mL Normal 11-307 [facility] Comment on above: Result Comment: NORM ALS MEN <30 YRS 16-132 ng/mL MEN >30 YRS 8-338 ng/mL WOMEN (PREMEN) 6-104 ng/mL WOMEN (POSTMEN) 12-210 ng/mL Performed By: #### 2 349869, 1331623, 6176094, 7810539, 4377724, 1577700, 1289714, 38430592, 9698991, 6297815 ####[facility] [address] [place] [address] Free T4on 04-01-2023 Free T4 [Mass/Vol] 0.97 ng/dL Normal 0.58-1.64 [facility] Comment on above: Performed By: #### 2 210063, 1933026, 6323447, 2767849, 6762231, 1581684, 6688663, 67531758, 2642685, 2467865 ####[facility] [address] [place] [address] HEMATOLOGYOrdered By: Graciela Carey on 04-01-2023 Erythrocyte [...] [Mass/Vol] 130 microgram/dL Normal 35-153 [facility] Comment on above: Performed By: #### 2 495440, 6489859, 0129812, 3958185, 3950250, 0355161, 7940151, 41600382, 6649677, 7834405 ####[facility] [address] [place] [address] Physician Orderon 04-01-2023 Physician Order [id number] FF Normal [facility] TSHon 04-01-2023 TSH Qn 0.96 m[IU]/L Normal 0.34-5.60 [facility] Comment on above: Performed By: #### 2 612029, 3516941, 3637066, 4310952, 6811122, 9366126, 4368138, 43796802, 2138526, 8069085 ####[facility] [address] [place] [address] Valproic Acidon 04-01-2023 Valproate [Moles/Vol] 59 microgram/mL Normal 50-99 [facility] Comment on above: Performed By: #### 2 402439, 2038196, 5086088, 6690851, 3732222, 5714816, 0755921, 02591295, 4560524, 0440168 ####[facility] [address] [place] [address] Vit B12on 04-01-2023 Cobalamin (Vitamin B12) [Mass/Vol] 305 pg/mL Normal 50-1500 [facility] Comment on above: Performed By: #### 2 457277, 3392398, 9813852, 1564530, 3623203, 2877569, 8871254, 32308465, 4840730, 5866354 ####[facility] [address] [place] [address] eGFRon 04-01-2023 GFR/1.73 sq M.predicted among non-blacks MDRD (S/P/Bld) [Vol rate/Area] 124 mL/min/1.73 m2 Normal >=59 [facility] Comment on above: Order Comment: Order added by Discern Expert. Result Comment: [employer] kidney disease could be indicated at eGFR's of less than 60 mL/min/1.73m2. Kidney failure is indicated at less than 15 mL/min/1.73m2. Performed By: #### 2 901343, 1378319, 4912936, 6048924, 6386362, 1001326, 1237625, 48432686, 1357553, 8860828 ####[facility] [address] [place] [address] CHEMISTRYOrdered By: SYSTEM SYSTEM on 01-14-2023 Valproate [Moles/Vol] 82 microgram/mL Normal 50 - 99 mcg/mL [facility] Remisol Physician Orderon 01-14-2023 Physician Order [id number]#1.00CD: 127 Normal [facility] Valproic Acidon 01-14-2023 Valproate [Moles/Vol] 82 microgram/mL Normal 50-99 [facility] Comment on above: Performed By: #### 2 908145 ####[facility] [address] [place] [address] XR DEXA BONE DENSITYon 10-01 XR DEXA [...] by: SANDY RAMIREZ Date: 2022-10-01 11:02 Normal [facility] CBC AUTO DIFFon 09-16-2022 BASO # 0.0 103/ul Normal 0.0-0.1 [facility] Comment on above: Performed By: #### C BC #### [facility] [address] [place] [address] Dr. Chong Agarwal Basophils/100 WBC (Bld) 0.3 % Normal 0.2-2.0 [facility] Comment on above: Performed By: #### C BC #### [facility] [address] [place] [address] Dr. Chong Agarwal EO # 0.0 103/ul Normal 0.0-0.7 [facility] Comment on above: Performed By: #### C BC #### [facility] [address] [place] [address] Dr. Chong Agarwal Eosinophils/100 WBC (Bld) 0.4 % Critically low 0.9-7.0 [facility] Comment on above: Performed By: #### C BC #### [facility] [address] [place] [address] Dr. Chong Agarwal Erythrocyte distribution width (RBC) [Ratio] 14.6 % Normal 11.0-15.0 [facility] Comment on above: Performed By: #### C BC #### [facility] [address] [place] [address] Dr. Chong Agarwal Hematocrit (Bld) [Volume fraction] 37.6 % Normal 36.0-48.0 [facility] Comment on above: Performed By: #### C BC #### [facility] [address] [place] [address] Dr. Chong Agarwal Hemoglobin (Bld) [Mass/Vol] 12.2 g/dL Normal 12.0-16.0 [facility] Comment on above: Performed By: #### C BC #### [facility] [address] [place] [address] Dr. Chong Agarwal IG # 0.02 10e3/ul Normal 0.00-0.03 [facility] Comment on above: Performed By: #### C BC #### [facility] [address] [place] [address] Dr. Chong Agarwal IG % 0.3 % Normal 0.0-0.5 [facility] Comment on above: Performed By: #### C BC #### [facility] [address] [place] [address] Dr. Chong Agarwal LYMPH # 2.4 103/ul Normal 1.2-3.8 [facility] Comment on above: Performed By: #### C BC #### [facility] [address] [place] [address] Dr. Chong Agarwal Lymphocytes/100 WBC (Bld) 34.6 % Normal 20.5-60.0 [facility] Comment on above: Performed By: #### C BC #### [facility] [address] [place] [address] Dr. Chong Agarwal MANUAL DIFF REQ NO Normal [facility] Comment on above: Performed By: #### C BC #### [facility] [address] [place] [address] Dr. Chong Agarwal MCH (RBC) [Entitic mass] 31.4 pg Normal 26.7-34.0 [facility] Comment on above: Performed By: #### C BC #### [facility] [address] [place] [address] Dr. Chong Agarwal MCHC (RBC) [Mass/Vol] 32.4 g/dL Normal 29.9-35.2 [facility] Comment on above: Performed By: #### C BC #### [facility] [address] [address] [address] Chong Agarwal MCV (RBC) [Entitic vol] 96.7 fL Normal 81.0-99.0 [facility] Comment on above: Performed By: #### C BC #### [facility] [address] [address] [address] Chong Agarwal MONO # 0.7 103/ul Normal 0.3-0.8 [facility] Comment on above: Performed By: #### C BC #### [facility] [address] [address] [address] Chong Agarwal Monocytes/100 WBC (Bld) 10.2 % Normal 1.7-12.0 [facility] Comment on above: Performed By: #### C BC #### [facility] [address] [address] [address] Chong Agarwal NEUT # 3.8 103/ul Normal 1.4-6.5 [facility] Comment on above: Performed By: #### C BC #### [facility] [address] [address] [address] Chong Agarwal Neutrophils/100 WBC (Bld) 54.2 % Normal 43.0-75.0 [facility] Comment on above: Performed By: #### C BC #### [facility] [address] [address] [address] Chong Agarwal Platelet mean volume (Bld) [Entitic vol] 11.0 fL Normal 9.5-13.5 [facility] Comment on above: Performed By: #### C BC #### [facility] [address] [address] [address] Chong Agarwal PLT 290 103/ul Normal 150-450 [facility] Comment on above: Performed By: #### C BC #### [facility] [address] [address] [address] Chong Agarwal RBC 3.89 106/ul Critically low 4.20-5.40 [facility] Comment on above: Performed By: #### C BC #### [facility] [address] [address] [address] Chong Agarwal WBC 7.0 103/ul Normal 4.0-11.0 [facility] Comment on above: Performed By: #### C BC #### [facility] [address] [address] [address] Chong Agarwal FREE T3on 09-16-2022 FREE T3 2.11 pg/mlL Critically low 2.18-3.98 [facility] Comment on above: Performed By: #### T SH, CMP, LIPID, FT3 #### [facility] [address] [address] [address] Chong Agarwal FREE T4on 09-16-2022 Free T4 [Mass/Vol] 1.25 ng/dL Normal 0.76-1.46 [facility] Comment on above: Performed By: #### F T4, VITB12 #### [facility] [address] [address] [address] Chong Agarwal LIPID PROFILEon 09-16-2022 CHOL-HDL RATIO NORM SEE BELOW Normal [facility] Comment on above: Result Comment: 3.3 - 4.4 LOW RISK 4.4 - 7.1 AVERAGE RISK 7.1 - 11.0 MODERATE RISK >11.0 HIGH RISK Performed By: #### T SH, CMP, LIPID, FT3 #### [facility] [address] [place] [address] Dr. Chong Agarwal Cholesterol [Mass/Vol] 144 mg/dL Normal <=200 [facility] Comment on above: Performed By: #### T SH, CMP, LIPID, FT3 #### [facility] [address] [address] [address] Chong Agarwal Cholesterol in HDL [Mass/Vol] 49 mg/dL Normal 40-60 [facility] Comment on above: Performed By: #### T SH, CMP, LIPID, FT3 #### [facility] [address] [place] [address] Dr. Chong Agarwal Cholesterol in LDL [Mass/Vol] 78.0 mg/dL Normal [facility] Comment on above: Performed By: #### T SH, CMP, LIPID, FT3 #### [facility] [address] [address] [address] Chong Agarwal Cholesterol.total/Choles terol in HDL [Mass ratio] 2.9 {ratio} Normal [facility] Comment on above: Performed By: #### T SH, CMP, LIPID, FT3 #### [facility] [address] [address] [address] Chong Agarwal HDL NORMAL > or = 60 mg/dl - LO W CARDIOVASCULAR RISK <40 mg/dl - HIGH CARDIOVASCULAR RISK Normal [facility] Comment on above: Performed By: #### T SH, CMP, LIPID, FT3 #### [facility] [address] [address] [address] Chong Agarwal LDL CALC NORMAL SEE BELOW Normal [facility] Comment on above: Result Comment: <100 mg/dl OPTIMAL 100 - 129 mg/dl NEAR OR ABOVE OPTIMAL 130 - 159 mg/dl BORDERLINE HIGH 160 - 189 mg/dl HIGH >190 mg/dl VERY HIGH Performed By: #### T SH, CMP, LIPID, FT3 #### [facility] [address] [address] [address] Chong Agarwal Triglyceride [Mass/Vol] 85 mg/dL Normal <=150 [facility] Comment on above: Performed By: #### T SH, CMP, LIPID, FT3 #### [facility] [address] [address] [address] Chong Agarwal VLDL CALC 17.0 mg/dL Normal [facility] Comment on above: Performed By: #### T SH, CMP, LIPID, FT3 #### [facility] [address] [address] [address] Chong Agarwal PROF 14(COMP METB)on 023 Albumin [Mass/Vol] 3.5 g/dL Normal 3.4-5.0 [facility] Comment on above: Performed By: #### T SH, CMP, LIPID, FT3 #### [facility] [address] [address] [address] Chong Agarwal Albumin/Globulin [Mass ratio] 0.9 {ratio} Normal [facility] Comment on above: Performed By: #### T SH, CMP, LIPID, FT3 #### [facility] [address] [place] [address] Dr. Chong Agarwal ALP [Catalytic activity/Vol] 31 U/L Critically low 46-116 [facility] Comment on above: Performed By: #### T SH, CMP, LIPID, FT3 #### [facility] [address] [place] [address] Dr. Chong Agarwal ALT [Catalytic activity/Vol] 34 U/L Normal 14-59 [facility] Comment on above: Performed By: #### T SH, CMP, LIPID, FT3 #### [facility] [address] [place] [address] Dr. Chong Agarwal Anion gap [Moles/Vol] 8.3 mmol/L Normal [facility] Comment on above: Performed By: #### T SH, CMP, LIPID, FT3 #### [facility] [address] [place] [address] Dr. Chong Agarwal AST [Catalytic activity/Vol] 22 U/L Normal 15-37 [facility] Comment on above: Performed By: #### T SH, CMP, LIPID, FT3 #### [facility] [address] [place] [address] Dr. Chong Agarwal Bilirubin [Mass/Vol] 0.2 mg/dL Normal 0.2-1.0 [facility] Comment on above: Performed By: #### T SH, CMP, LIPID, FT3 #### [facility] [address] [place] [address] Dr. Chong Agarwal Calcium [Mass/Vol] 9.0 mg/dL Normal 8.5-10.1 [facility] Comment on above: Performed By: #### T SH, CMP, LIPID, FT3 #### [facility] [address] [place] [address] Dr. Chong Agarwal Chloride [Moles/Vol] 101 mmol/L Normal 98-107 [facility] Comment on above: Performed By: #### T SH, CMP, LIPID, FT3 #### [facility] [address] [address] [address] Chong Agarwal CO2 [Moles/Vol] 30.0 mmol/L Normal 21.0-32.0 [facility] Comment on above: Performed By: #### T SH, CMP, LIPID, FT3 #### [facility] [address] [address] [address] Chong Agarwal Creatinine [Mass/Vol] 0.54 mg/dL Critically low 0.55-1.02 [facility] Comment on above: Performed By: #### T SH, CMP, LIPID, FT3 #### [facility] [address] [address] [address] Chong Agarwal EGFR-AF SALVADOREAN >60 Normal >=60 [facility] Comment on above: Performed By: #### T SH, CMP, LIPID, FT3 #### [facility] [address] [address] [address] Chong Agarwal EGFR-NON AF SALVADOREAN >60 Normal >=60 [facility] Comment on above: Performed By: #### T SH, CMP, LIPID, [id number] #### [facility] [address] [address] [address] Chong Agarwal Globulin (S) [Mass/Vol] 3.9 g/dL Normal [facility] Comment on above: Performed By: #### T SH, CMP, LIPID, FT3 #### [facility] [address] [address] [address] Chong Agarwal Glucose [Mass/Vol] 95 mg/dL Normal 74-106 [facility] Comment on above: Performed By: #### T SH, CMP, LIPID, FT3 #### [facility] [address] [address] [address] Chong Agarwal Potassium [Moles/Vol] 4.3 mmol/L Normal 3.5-5.1 [facility] Comment on above: Performed By: #### T SH, CMP, LIPID, FT3 #### [facility] [address] [address] [address] Chong Agarwal Protein [Mass/Vol] 7.4 g/dL Normal 6.4-8.2 [facility] Comment on above: Performed By: #### T SH, CMP, LIPID, FT3 #### [facility] [address] [place] [address] Dr. Chong Agarwal Sodium [Moles/Vol] 135 mmol/L Critically low 136-145 [facility] Comment on above: Performed By: #### T SH, CMP, LIPID, FT3 #### [facility] [address] [place] [address] Dr. Chong Agarwal Urea nitrogen [Mass/Vol] 12.0 mg/dL Normal 7.0-18.0 [facility] Comment on above: Performed By: #### T SH, CMP, LIPID, FT3 #### [facility] [address] [place] [address] Dr. Chong Agarwal Urea nitrogen/Creatinine [Mass ratio] 22.2 mg/mg Normal [facility] Comment on above: Performed By: #### T SH, CMP, LIPID, FT3 #### [facility] [address] [place] [address] Dr. Chong Agarwal TSHon 09-16-2022 TSH 0.986 uIU/mL Normal 0.358-3.74 0 [facility] Comment on above: Performed By: #### T SH, CMP, LIPID, FT3 #### [facility] [address] [place] [address] Dr. Chong Agarwal VITAMIN B12on 09-16-2022 Cobalamin (Vitamin B12) [Mass/Vol] 581.0 pg/mL Normal 193.0-986. 0 [facility] Comment on above: Performed By: #### F T4, VITB12 #### [facility] [address] [place] [address] Dr. Chong Agarwal CULTURE WOUNDon 08-22-2022 CULTURE [...] F Trimethoprim/Sulfamethox azole <=10 S F Normal [facility] Comment on above: Performed By: #### W OUNDCX #### [facility] [address] [place] [address] Dr. Chong Agarwal DEPAKENE/ VALPROIC ACIDon DEPAKENE 92.4 ug/ml Normal 50.0-100.0 [facility] Comment on above: Performed By: #### V ALP #### [facility] [address] [place] [address] Dr. Chong Agarwal Vital Signs Date Time Vital Sign Value Performing Clinician Facility 01-08-2024 16:00-0400 Diastolic blood pressure 26 mm[Hg] Stacie Torres DMD Work Phone: [facility] 01-08-2024 16:00-0400 Heart rate 84 /min Stacie Torres DMD Work Phone: [facility] 01-08-2024 16:00-0400 Respiratory rate 22 /min Stacie Torres DMD Work Phone: [facility] 01-08-2024 16:00-0400 SaO2% (BldA) [Mass fraction] 96 % Stacie Torres DMD Work Phone: [facility] 01-08-2024 16:00-0400 Systolic blood pressure 94 mm[Hg] Stacie Torres DMD Work Phone: [facility] 01-08-2024 15:56-0400 Body temperature 98.1 [degF] Stacie Torres DMD Work Phone: [facility] 01-08-2024 11:04-0400 Body height 147.3 cm Stacie Torres DMD Work Phone: [facility] 01-08-2024 11:04-0400 Body mass index (BMI) [Ratio] 31.98 kg/m2 Stacie Torres DMD Work Phone: [facility] 01-08-2024 11:04-0400 Body weight 69.4 kg Stacie Torres DMD Work Phone: [facility] 12-28-2023 20:36-0400 Heart rate 75 /min Víctor Earl DIRECTOR FAMILY-MEDICAL ADVISOR Work Phone: [facility] 12-25-2023 10:34-0400 Body height 147.3 cm Víctor Earl DIRECTOR FAMILY-MEDICAL ADVISOR Work Phone: [facility] 12-25-2023 10:34-0400 Body mass index (BMI) [Ratio] 31.98 kg/m2 Víctor Earl DIRECTOR FAMILY-MEDICAL ADVISOR Work Phone: [facility] 12-25-2023 10:34-0400 Body temperature 98.91 [degF] Víctor Goldberg DIRECTOR FAMILY-MEDICAL ADVISOR Work Phone: [facility] 12-25-2023 10:34-0400 Body weight 69.4 kg Justensamia Earl DIRECTOR FAMILY-MEDICAL ADVISOR Work Phone: [facility] 12-25-2023 10:34-0400 Diastolic blood pressure 61 mm[Hg] Víctor Goldberg DIRECTOR FAMILY-MEDICAL ADVISOR Work Phone: [facility] 12-25-2023 10:34-0400 Heart rate 86 /min Víctor Goldberg DIRECTOR FAMILY-MEDICAL ADVISOR Work Phone: [facility] 12-25-2023 10:34-0400 Respiratory rate 16 /min Víctor Goldberg DIRECTOR FAMILY-MEDICAL ADVISOR Work Phone: [facility] 12-25-2023 10:34-0400 SaO2% (BldA) [Mass fraction] 99 % Víctor Goldberg DIRECTOR FAMILY-MEDICAL ADVISOR Work Phone: [facility] 12-25-2023 10:34-0400 Systolic blood pressure 94 mm[Hg] Víctor Goldberg DIRECTOR FAMILY-MEDICAL ADVISOR [facility] 09-16-2023 09:00-0400 Diastolic blood pressure 61 mm[Hg] Mohamad Mouchli [facility] 09-16-2023 09:00-0400 Heart rate 70 /min Mohamad Mouchli [facility] 09-16-2023 09:00-0400 Mean blood pressure 74 mm[Hg] Mohamad Mouchli [facility] 09-16-2023 09:00-0400 Systolic blood pressure 99 mm[Hg] Mohamad Mouchli [facility] 09-16-2023 08:50-0400 Blood Pressure Location Mohamad Mouchli [facility] 09-16-2023 08:50-0400 Diastolic blood pressure 68 mm[Hg] Mohamad Mouchli [facility] 09-16-2023 08:50-0400 Heart rate 72 /min Mohamad Mouchli [facility] 09-16-2023 08:50-0400 Mean blood pressure 79 mm[Hg] Mohamad Mouchli [facility] 09-16-2023 08:50-0400 Respiratory rate 12 /min Mohamad Mouchli [facility] 09-16-2023 08:50-0400 SaO2% (BldA) [Mass fraction] 96 % Mohamad Mouchli [facility] 09-16-2023 08:50-0400 Systolic blood pressure 100 mm[Hg] Mohamad Mouchli [facility] 09-16-2023 08:45-0400 Diastolic blood pressure 83 mm[Hg] Mohamad Mouchli [facility] 09-16-2023 08:45-0400 Heart rate 86 /min Mohamad Mouchli [facility] 09-16-2023 08:45-0400 Mean blood pressure 88 mm[Hg] Mohamad Mouchli [facility] 09-16-2023 08:45-0400 Respiratory rate 17 /min Mohamad Mouchli [facility] 09-16-2023 08:45-0400 SaO2% (BldA) [Mass fraction] 97 % Mohamad Mouchli [facility] 09-16-2023 08:45-0400 Systolic blood pressure 98 mm[Hg] Mohamad Mouchli [facility] 09-16-2023 08:35-0400 Body temperature 98.06 [degF] Mohamad Mouchli [facility] 09-16-2023 07:39-0400 Body temperature 98.06 [degF] Mohamad Mouchli [facility] 09-10-2023 09:10-0400 Blood Pressure Location Mohemanueld Rejiuchli [facility] 09-10-2023 09:10-0400 Diastolic blood pressure 67 mm[Hg] Mohamad Mouchli [facility] 09-10-2023 09:10-0400 Heart rate 91 /min Mohamad Mouchli [facility] 09-10-2023 09:10-0400 Respiratory rate 16 /min Mohamad Mouchli [facility] 09-10-2023 09:10-0400 Systolic blood pressure 113 mm[Hg] Gersond Rejiuchli [facility] Encounters Encounter Date Encounter Type Care Provider Facility Start: 02-03-2024 End: 02-03-2024 Refill Chandler Marin DDS Work Phone: [facility] Comment on above: Refill Start: 01-11-2024 End: 01-11-2024 Telephone encounter Stacie Torres DMD Work Phone: [facility] Comment on above: Referral needs place d for OS Start: 01-08-2024 End: 01-08-2024 Patient encounter procedure Stacie Torres DMD Work Phone: [facility] Comment on above: Arrived Start: 01-08-2024 End: 01-08-2024 ambulatory UNKNOWN PROVIDER Facility:[facility] Start: 01-08-2024 End: 01-08-2024 Subsequent hospital visit by physician Stacie Torres DMD Work Phone: [facility] Start: 01-08-2024 ambulatory UNKNOWN PROVIDER Facili ty:[facility] Start: 01-06-2024 End: 01-06-2024 Telephone encounter Bronwyn Pradhan RN [facility] Pre-Admission Testing Comment on above: Pre-surgical Evaluat ion (DD adult dental restorations 01/07 under [place] at [facility]. PAT completed - consents obtained. MARY RN spoke to Cassidy, confirmed NPO except water only until 0900 (Cassidy stated pt does not like and will not drink water), [place] address, and 1100 arrival time/) Start: 01-05-2024 End: 01-05-2024 ambulatory POONAM TALBERT Not Available Start: 12-28-2023 End: 12-28-2023 Telephone encounter Susie Dumont RN [facility]mission [facility] Start: 12-25-2023 End: 12-28-2023 Patient encounter procedure Víctor Goldberg DIRECTOR FAMILY-MEDICAL ADVISOR Work Phone: [facility] Comment on above: Preop testing (Prima ry Dx); Body mass index (BMI) 31.0-31.9, adult Preop testing (Prima ry Dx); Body mass index (BMI) 31.0-31.9, adult; Abnormal electrocardiogram (ECG) (EKG); Abnormal electrocardiogram (ECG) (EKG) Start: 12-25-2023 End: 12-28-2023 Patient encounter status Víctor Goldberg DIRECTOR FAMILY-MEDICAL ADVISOR [facility] Work Phone: Start: 12-25-2023 End: 12-28-2023 ambulatory VÍCTOR GOLDBERG Facility:[facility] Start: 12-25-2023 Encounter for other preprocedural examination VÍCTOR GOLDBERG [facility] Start: 09-23-2023 End: 09-24-2023 ambulatory Jessee Nina Facility:[facility] Start: 09-23-2023 End: 09-23-2023 Patient encounter procedure Jessee Nina [facility] Start: 09-16-2023 End: 09-17-2023 ambulatory Jessee Nina Facility:[facility] Start: 09-16-2023 End: 09-16-2023 Patient encounter procedure Jessee Nina [facility] Start: 09-10-2023 End: 09-11-2023 ambulatory Jessee Nina Facility:[facility] Start: 09-10-2023 End: 09-10-2023 Patient encounter procedure Jessee Nina [facility] Start: 09-09-2023 ambulatory Jessee Nina Facilit y:Shadi gallo Start: 04-01-2023 End: 04-02-2023 ambulatory BALJIT PINEDO Facility:[facility] Start: 04-01-2023 End: 04-01-2023 Lab Drop off BALJIT PINEDO [facility] Start: 01-14-2023 End: 01-15-2023 ambulatory BALJIT PINEDO Facility:[facility] Start: 01-14-2023 End: 01-14-2023 Lab Drop off BALJIT PINEDO [facility] Start: 10-01-[address] BALJIT PINEDO Fac ility:[facility] Start: 09-16-2022 End: 09-17-[address] BALJIT PINEDO Facility:[facility] Start: 08-19-2022 End: 08-19-[address] BALJIT PINEDO Facility:[facility] Start: 07-22-2022 End: 07-25-2022 Patient encounter procedure Kary Ku DDS Work Phone: [facility] Start: 06-08-2022 Letter encounter Rm Goldman DDS Work Phone: [facility] Start: 04-29-2022 End: 04-30-[address] BALJIT PINEDO Facility:[facility] Procedures Date Procedure Procedure Detail Performing Clinician Start: 01-08-2024 Gonadotropin chorionic quantitative Kim lorie Shin MD Work Phone: Start: 12-25-2023 Blood count complete automated Edsamia brock DIRECTOR FAMILY-MEDICAL ADVISOR Work Phone: Start: 12-25-2023 Ecg routine ecg w/least 12 lds trcg only w/o i&r Víctor Goldberg DIRECTOR FAMILY-MEDICAL ADVISOR Work Phone: Start: 09-16-2023 Esophagogastroduodenoscopy Jessee armstrong [...] Routine scheduled Caries 01/08/2024 2:10 PM EDT [facility] Start: 01-08-2024 End: 01-08-2024 Admission to same day surgery center 01/08/2024 11:28 AM EDT - 01/08/2024 1:23 PM EDT Surgery [facility] [address] [place] [address] Stacie Torres, DMD [address] [id number] DENTAL [facility]ATIONS [facility] Comment on above: [facility]AL [facility]OR[facility] Start: 01-08-2024 End: 01-08-2024 DENTAL RESTORATIONS DENTAL RESTORATIONS Routine scheduled Caries 01/08/2024 11:28 AM EDT [facility] Start: 01-08-2024 Subsequent hospital visit by physician 01/08/2024 11:28 AM EDT Hospital Encounter [facility] [address] [place] [id number] Stacie Torres DMD [address] [place] [address] [facility] Start: 01-08-2024 End: 01-08-2024 Patient encounter procedure 01/08/2024 11:00 AM EDT Procedure Visit [facility] [address] [place] [id number] Stacie Torres DMD [address] [place] [address] [facility] Start: 01-08-2024 End: 01-08-2024 Admission to same day surgery center 01/08/2024 7:20 AM EDT - 01/08/2024 9:15 AM EDT Surgery [facility] [address] [place] [id number] Stacie Torres DMD [address] [place] [address] DENTAL RESTORATIONS [facility] Comment on above: DENTAL RESTORATIONS Start: 01-08-2024 End: 01-08-2024 DENTAL RESTORATIONS DENTAL RESTORATIONS Routine scheduled Caries 01/08/2024 7:20 AM EDT [facility] Start: 01-08-2024 Subsequent hospital visit by physician 01/08/2024 7:20 AM EDT Hospital Encounter [facility] [address] [place] [id number] Stacie Torres DMD [address] [place] [address] [facility] Start: 01-16-2023 COVID-19 Vaccine ( season) COVID-19 Vaccine () [facility] Start: 08-31-2022 Tetanus vaccination Tetanus (T d or Tdap) Booster [facility] Start: 07-22-2022 End: 07-22-2022 Patient encounter procedure 07/22/2022 Procedure Visit Dentistry Diana Horan, [facility] [address] [place] [address] [facility] Start: 02-15-2022 Influenza vaccination Influenza Vacc ine (#1) [facility] Start: 2012 HPV Vaccine (optiona l start 27-45 years) HPV Vaccine (optional start 27-45 years) [facility] Start: 2006 Screening for malign ant neoplasm of cervix Pap Smear [facility] Start: 2004 Hepatitis A (HAV) Vaccine (optional start 19+ years) Hepatitis A (HAV) Vaccine (optional start 19+ years) [facility] Start: 2004 Hepatitis B vaccination Hepati tis B (HBV) Vaccine (1 of 3 - 19+ 3-dose series) [facility] Start: 2003 Hepatitis C screening Hepatitis C An tibody [facility] Start: 2000 HIV screening HIV Test [facility] Start: 1985 Screening for malign ant neoplasm of breast [facility] Ecg routine ecg w/le ast 12 lds trcg only w/o i&r EKG 12 LEAD - PERFORM MUSE Routine Preop testing Ordered: 12/25/2023 [facility] [employer] Work Phone: Comment on above: Ordered: 12/25/2023 End: 01-08-2024 Urine test visual color cmprsn meths URINE HCG-IN OFFICE Lab Routine One time for 1 Occurrences starting 01/08/2024 until 01/08/2024 [facility] [employer] Work Phone: Comment on above: One time for 1 Occur rences starting 01/08/2024 until 01/08/2024 Immunizations Immunization Date Immunization Notes Care Provider Fa cility 03-04-2023 influenza virus vacc ine, unspecified formulation Jessee Nina [facility] 08-14-2022 SARS-CoV-2 (COVID-19 ) [id number] Jessee Nina [facility] 08-14-2022 tetanus toxoid, redu penelope diphtheria toxoid, and acellular pertussis vaccine, adsorbed Jessee Nina [facility] 03-05-2022 influenza virus vacc ine, unspecified formulation Jessee Nina [facility] 03-05-2022 SARS-CoV-2 (COVID-19 ) [id number] Jessee Nina [facility] Comment on above: Result Comment: 2023: TPVALL 03-13-2021 influenza, injectabl e, quadrivalent, preservative free Rm Goldman [employer] Work Phone: [facility] 03-13-2021 SARS-CoV-2 (COVID-19 ) mRNA BNT-162b2 vax Jessee Nina [facility] Comment on above: Result Comment: 2023: TPV3 03-13-2021 influenza virus vacc ine, unspecified formulation Rm Goldman [employer] Work Phone: [facility] 06-19-2020 Pfizer (12+ yrs) SARS-COV-2 (COVID-19) vaccine, mRNA, spike protein, LNP, pres. free, 30 mcg/0.3mL dose (BLX=806) Rm Goldman [employer] Work Phone: [facility] Comment on above: Result Comment: 2023: TPVAL 05-29-2020 Pfizer (12+ yrs) SARS-COV-2 (COVID-19) vaccine, mRNA, spike protein, LNP, pres. free, 30 mcg/0.3mL dose (IDV=074) Rm Goldman [employer] Work Phone: [facility] Comment on above: Result Comment: 2023: TPVAL 02-22-2020 influenza virus vacc ine, unspecified formulation Mohamad Mouchli [facility] 02-22-2020 influenza, injectabl e, quadrivalent, preservative free Rm Susi DDS Work Phone: [facility] 03-11-2019 influenza virus vacc ine, unspecified formulation Mohamad Mouchli [facility] 03-11-2019 influenza, injectabl e, quadrivalent, preservative free Rm Susi DDS Work Phone: [facility] 02-24-2018 influenza virus vacc ine, unspecified formulation Mohamad Mouchli [facility] 02-24-2018 influenza, injectabl e, quadrivalent, preservative free Rm Susi DDS Work Phone: [facility] 03-11-2017 influenza virus vacc ine, unspecified formulation Mohamad Mouchli [facility] 03-11-2017 influenza, injectabl e, quadrivalent, contains preservative Rm Susi DDS Work Phone: [facility] 02-20-2016 influenza virus vacc ine, unspecified formulation Mohamad Mouchli [facility] 02-20-2016 influenza, seasonal, injectable Rm Susi DDS Work Phone: [facility] 03-08-2015 influenza virus vacc ine, unspecified formulation Mohamad Mouchli [facility] 03-08-2015 influenza, injectabl e, quadrivalent, preservative free Rm Susi DDS Work Phone: [facility] 03-23-2014 influenza virus vacc ine, unspecified formulation Mohamad Mouchli [facility] 03-23-2014 influenza, injectabl e, quadrivalent, preservative free Rm Susi DDS Work Phone: [facility] 03-15-2013 influenza virus vacc ine, unspecified formulation Mohamad Mouchli [facility] 03-15-2013 influenza, seasonal, injectable Rm Susi DDS Work Phone: [facility] 08-31-2012 tetanus toxoid, redu penelope diphtheria toxoid, and acellular pertussis vaccine, adsorbed Rm Susi DDS Work Phone: [facility] 03-10-2012 influenza virus vacc ine, unspecified formulation Mohamad Mouchli [facility] 03-10-2012 influenza, seasonal, injectable Rm Susi DDS Work Phone: [facility] 01-29-2011 influenza virus vacc ine, unspecified formulation Mohamad Mouchli [facility] 01-29-2011 influenza, seasonal, injectable Rm Susi DDS Work Phone: [facility] 03-13-2010 influenza virus vacc ine, whole virus Rm Susi DDS Work Phone: [facility] 03-13-2010 influenza, whole Mohamad Erica chli [facility] 04-04-2009 novel influenza-H1N1 -09, preservative-free, injectable Rm Susi DDS Work Phone: [facility] 03-09-2008 influenza virus vacc ine, whole virus Rm Susi DDS Work Phone: [facility] 03-09-2008 influenza, whole Mohamad Erica chli [facility] 10-01-2006 meningococcal ACWY vaccine, unspecified formulation Mohamad Mouchli [facility] 10-01-2006 meningococcal polysaccharide (groups A, C, Y and W-135) diphtheria toxoid conjugate vaccine (MCV4P) Rm Goldman [employer] Work Phone: [facility] 09-02-2000 TD(adult) unspecifie d formulation; Translations: [Td(adult) unspecified formulation] Rm Goldman DDS Work Phone: [facility] 07-29-1990 diphtheria, tetanus toxoids and pertussis vaccine Rm Goldman DDS Work Phone: [facility] 07-29-1990 trivalent poliovirus vaccine, live, oral Rm Goldman DDS Work Phone: [facility] 11-03-1987 trivalent poliovirus vaccine, live, oral Rmphuong Goldman DDS Work Phone: [facility] 07-02-1987 haemophilus influenz ae type b vaccine, conjugate unspecified formulation Rm Goldman DDS Work Phone: [facility] 07-02-1987 Hib, unspecified formulation Jessee Nina [facility] 05-29-1987 diphtheria, tetanus toxoids and pertussis vaccine Rm Goldman DDS Work Phone: [facility] 05-29-1987 trivalent poliovirus vaccine, live, oral Rmphuong Goldman DDS Work Phone: [facility] 11-15-1986 measles, mumps and rubella virus vaccine Rmphuong Goldman DDS Work Phone: [facility] 06-28-1986 trivalent poliovirus vaccine, live, oral Rmphuong Goldman DDS Work Phone: [facility] 1985 diphtheria, tetanus toxoids and pertussis vaccine Rmphuong Rodriguezano DDS Work Phone: [facility] 1985 diphtheria, tetanus toxoids and pertussis vaccine Rmphuong Goldman DDS Work Phone: [facility] 1985 trivalent poliovirus vaccine, live, oral Rm Goldman DDS Work Phone: [facility] 1985 diphtheria, tetanus toxoids and pertussis vaccine Rm Goldman DDS Work Phone: [facility] Payers Date Payer Category Payer Medicaid [id number] 1985 Unknown [id number] 2.16.8 [id number] 1985 Unknown [id number] 2.16.8 [id number] 1985 Unknown [id number] 2.16.8 [id number] 1985 Unknown [id number] 2.16.8 [id number] 1985 Unknown [id number] 2.16.8 [id number] 1985 Unknown [id number] 2.16.8 [id number] 1985 Unknown [id number] 2.16.84 [id number] 1985 Unknown [id number] 2.16. [id number] 1985 Unknown [id number] 2.16. [id number] 1985 Unknown [id number] 2.16. [id number] 1959 Medicaid [id number] Unknown [id number] 2.16.84 [id number] Unknown [id number] 2.16.84 [id number] Unknown [id number] 2.16.84 [id number] Unknown [id number] 2.16.84 [id number] Social History Date Type Detail Facility Start: 02-03-2019 End: 09-10-2023 Tobacco smoking status NHIS Never smoked tobacco [facility] Start: 02-03-2019 Tobacco use and exposure Smokeless tobacco non-user [facility] Start: 11-06-2020 End: 01-11-2024 Alcohol intake Ex-drinker (finding) [facility] Start: 1985 [facility] smoking [facility] No Smoking Status Entered [facility] Start: 12-25-2023 Sex Assigned At Female F [facility] Tobacco smoking status Never [facility] Start: 12-25-2023 History of Social function [facility] Functional Status Date Assessment Result Facility 09-16-2023 Functional Status N/A [facility] 09-10-2023 Functional Status N/A [facility] Clinical Notes 07-14-2020 to [...] referral for oral surgery. Message sent to [facility] Kary on January 13 2024 board. Message placed on board 01/11/24 @ 1152 am [facility] 01-11-2024 Miscellaneous Notes pt was seen in OR 01/08/24 , Stacie Montalvo DMD recommended that the pt be seen by [facility] fro care & follow up. in progess notes it states Referral placed to [facility] but NO referral can be found in pt's chart. please place referral for oral surgery. Message sent to [facility] Kary on January 13 2024 board. Message placed on board 01/11/24 @ 1152 am documented in this encounter [facility] 01-08-2024 History of Present illness Narrative 1605 Discharge instructions reviewed, caregiver states pt on mouth was at home therefore does not wish to wait for prescription documented in this encounter [facility] 01-08-2024 Hospital Discharge instructions Divine Simon RN - 01/08/2024 3:48 PM EDT Images from the original note were not included. Dental abscess The Basics Written by the doctors and editors at [facility] What is a dental abscess? -- [...] do anything to prevent another dental abscess? [place] your teeth at least 2 times a [...] process is complete. This topic retrieved from [employer] on: Jul 29, 2023. Topic [id number] Version 1.0 Release: 32.2.4 - C32.71 2023 [employer]. and/or its affiliates. All rights reserved. figure 1: Dental abscess Adental abscess is a collection of pus from an infection in the mouth. Dentalabscesses can form in the gums, next to a tooth, or in the root of a tooth. Graphic 243140 Version 1.0 Consumer Information Use and Disclaimer [...] or approved for treating a specific patient. [employer] and its affiliates disclaim any warranty or liability relating to this information or the use thereof.The use of this information is governed by the Terms of Use, available at https://www.[employer]or[employer]/e n/know/zqxqtxbi-utvctdabbrwdj-i erms. 2023 [employer] and its affiliates and/or licensors. All rights reserved. Copyright 2023 [employer] and/or its affiliates. All rights reserved. PERIOPERATIVE DISCHARGE/HOME-GOING INSTRUCTIONS ANESTHESIA - GENERAL (ADULT) If a problem arises, you may contact your physician by calling [phone] and asking for the resident coordinator of evaluation for Dental service. Special Care Needs: Activity: [...] very uncomfortable and can t urinate, call [phone] or come to the emergency room. The day after surgery, a nurse will call to check on you. However, if there are any questions or concerns, please call us at the number listed in the home going instructions. documented in this encounter [facility] 01-08-2024 History and physical note Surgical [...] Chandler Marin DDS 01/08/2024 1:47 PM [facility] 01-08-2024 Note Surgical Attestation : I [...] Chandler Marin DDS 01/08/2024 1:47 PM [facility] 01-08-2024 History and physical note [...] 01/08/2024 1:47 PM documented in this encounter [facility] 01-08-2024 Miscellaneous Notes Brief Operative Note PHE OR 3 Vee Stephensx 38 year old female Surgical Contact Serial Number: [id number] Preoperative Diagnosis: [place] deficit [place] 10[place] Anorexia 03/16/2008 Cerebral palsy [place] 10/08/2007 Late effect of adverse effect of drug, medical or biological substance 05/02/2009 Mental impairment [place] 10/08/2007 Mental retardation Other bipolar disorder [place] 10/08/2007 Other conduct disorders [place] 10/08/2007 Seizure disorder [place] 10/08/2007 Postoperative Diagnosis: ADHD (attention deficit hyperactivity disorder) [place] 10/08/2007 Anorexia 03/16/2008 Cerebral palsy [place] 10/08/2007 Late effect of adverse effect of drug, medical or biological substance 05/02/2009 Mental impairment [place] 10/08/2007 Mental retardation Other bipolar disorder [place] 10/08/2007 Other conduct disorders [place] 10/08/2007 Seizure disorder [place] 10/08/2007 Procedures: Full mouth X-ray [67462] Full mouth cleaning [26466] Restorations [58918] Surgeon(s): Surgeon(s): Stacie Torres DMD Yoris, Orlando, DDS Staff: Facs Teacher Nurse: Gabriel Hinkle Rn Baby: Chandler Parham DDS Anesthesia: General Anesthesiologist: Justin [...] year old female Surgical Contact Serial Number: [id number] Preoperative Diagnosis: ADHD (attention deficit hyperactivity disorder) [place] [place] 10/08/2007 Anorexia 03/16/2008 Cerebral palsy [place] 10/08/2007 Late effect of adverse effect of drug, medical or biological substance 05/02/2009 Mental impairment [place] 10/08/2007 Mental retardation Other bipolar disorder [place] [place] [place] 10/08/2007 Other conduct disorders [place] 10/08/2007 Seizure disorder [place] [place] [place] 10/08/2007 Postoperative Diagnosis: ADHD (attention deficit hyperactivity disorder) [place] 10/08/2007 Anorexia 03/16/2008 Cerebral palsy [place] 10/08/2007 Late effect of adverse effect of drug, medical or biological substance 05/02/2009 Mental impairment [place] [place] [place] 10/08/2007 Mental retardation Other bipolar disorder [place] [place] 10/08/2007 Other conduct disorders [place] [place] [place] 10/08/2007 Seizure disorder [place] [place] [place] 10/08/2007 Surgeon: Stacie Torres DMD [employer] Crewmember Surgeon: Chandler Marin DDS Anesthesia: General- Nasal [...] were discussed with the patient and/or legal inside account representative. The risks, benefits and alternatives were reviewed. Questions regarding blood transfusions were answered. The patient /or the patient s legal inside account representative agree with the plan for transfusion of blood and/or blood components. documented in this encounter [facility] 01-08-2024 Surgery Postoperative evaluation and management note Brief Operative Note PHE OR 3 Vee Sarabia 38 year old female Surgical Contact Serial Number: [id number] Preoperative Diagnosis: ADHD (attention deficit hyperactivity disorder) ([facility]) 10/08/2007 Anorexia 03/16/2008 Cerebral palsy ([facility]) 10/08/2007 Late effect of adverse effect of drug, medical or biological substance 05/02/2009 Mental impairment ([facility]) 10/08/2007 Mental retardation Other bipolar disorder ([facility]) 10/08/2007 Other conduct disorders ([facility]) 10/08/2007 Seizure disorder ([facility]) 10/08/2007 Postoperative Diagnosis: ADHD (attention deficit hyperactivity disorder) ([facility]) 10/08/2007 Anorexia 03/16/2008 Cerebral palsy ([facility]) 10/08/2007 Late effect of adverse effect of drug, medical or biological substance 05/02/2009 Mental impairment ([facility]) 10/08/2007 Mental retardation Other bipolar disorder ([facility]) 10/08/2007 Other conduct disorders ([facility]) 10/08/2007 Seizure disorder ([facility]) 10/08/2007 Procedures: Full mouth X-ray [35207] Full mouth cleaning [63577] Restorations [73727] Surgeon(s): Surgeon(s): Stacie Torres DMD Yoris, [place], DDS Staff: Facs Teacher Nurse: Gabriel Hinkle Rn Baby: Chandler Parham DDS Anesthesia: General Anesthesiologist: Justin [...] by Chandler Marin DDS 01/08/2024 1:48 PM [facility] 01-08-2024 Surgery Surgical operation note Operative Note PHE OR 3 Vee Sarabia 38 year old female Surgical Contact Serial Number: [id number] Preoperative Diagnosis: ADHD (attention deficit hyperactivity disorder) ([facility]) 10/08/2007 Anorexia 03/16/2008 Cerebral palsy ([facility]) 10/08/2007 Late effect of adverse effect of drug, medical or biological substance 05/02/2009 Mental impairment ([facility] 10/08/2007 Mental retardation Other bipolar disorder ([facility]) 10/08/2007 Other conduct disorders ([facility]) 10/08/2007 Seizure disorder ([facility]) 10/08/2007 Postoperative Diagnosis: ADHD (attention deficit hyperactivity disorder) ([facility]) 10/08/2007 Anorexia 03/16/2008 Cerebral palsy ([facility]) 10/08/2007 Late effect of adverse effect of drug, medical or biological substance 05/02/2009 Mental impairment ([facility] 10/08/2007 Mental retardation Other bipolar disorder ([facility]) 10/08/2007 Other conduct disorders ([facility] 10/08/2007 Seizure disorder ([facility]) 10/08/2007 Surgeon: Stacie Torres DMD [employer] Crewmember Surgeon: Chandler Marin DDS Anesthesia: General- Nasal [...] procedure. Chandler Marin DDS 01/08/2024 1:53 PM [facility] Phone: 01-08-2024 Progress note Formatting of t his note is different from the original. Blood Attestation: ATTESTATION OF INFORMED CONSENT FOR BLOOD: The transfusion of blood and/or blood components were discussed with the patient and/or legal inside account representative. The risks, benefits and alternatives were reviewed. Questions regarding blood transfusions were answered. The patient /or the patient s legal inside account representative agree with the plan for transfusion of blood and/or blood components. [facility] Phone: 01-08-2024 History of Present illness Narrative ----- Monday, January 08, 2024 at 3:45:54 PM ----- ----- Provider: [id number] - Stacie Torres DMD -- Clinic: [facility] ----- Pt was seen in OR under general anesthesia. comp exam, FMX and 4 quads SRP completed. Topical fluoride applied. #8 MIDLF broken tooth restored with composite. #12,13,14 present with non- restorable cervical lesions interproximally. 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 Referral placed to [facility] See note attached. Operative Note PHE OR 3 Vee Sarabia 38 year old female Surgical Contact Serial Number: [id number] Preoperative Diagnosis: ADHD (attention deficit hyperactivity disorder) ([facility]) 10/08/2007 Anorexia 03/16/2008 C[place]y [place] [place] [place] 10/08/2007 Late effect of adverse effect of drug, medical or biological substance 05/02/2009 Mental impairment [place] [place] [place] 10/08/2007 Mental retardation Other bipolar disorder [place] 10/08/2007 Other conduct disorders [place] 10/08/2007 Seizure disorder [place] 10/08/2007 Postoperative Diagnosis: ADHD (attention deficit hyperactivity disorder) [place] [place] 10/08/2007 Anorexia 03/16/2008 Cerebral palsy [place] 10/08/2007 Late effect of adverse effect of drug, medical or biological substance 05/02/2009 Mental impairment [place] [place] 10/08/2007 Mental retardation Other bipolar disorder [place] 10/08/2007 Other conduct disorders [place] 10/08/2007 Seizure disorder [place] 10/08/2007 Surgeon: Stacie Torres DMD [employer] Crewmember Surgeon: Chandler Marin DDS Anesthesia: General- Nasal [...] of surgery: Stable documented in this encounter [facility] 12-28-2023 Telephone encounter Note Anesthesia consent scanned into [employer]. [facility] 12-28-2023 Miscellaneous Notes Anesthesia consent scanned into [employer]. documented in this encounter [facility] 12-25-2023 Víctor Evans, DIRECTOR FAMILY-MEDICAL ADVISOR - 12/25/2023 10:36 AM EDT On the [...] for pain Please hold all Vitamin E, [place] 3, fish oil and herbal supplements for 1 week prior to surgery Please hold Naltrexone 3 days prior to surgery. Last dose on 01/03. Please use this CHECKLIST to prepare for your surgery/procedure: ? Assume that any lab or testing done during your Pre-admission testing appointment is within normal limits unless otherwise contacted. ? Expect a call from [facility] one business day prior to surgery [...] questions. Contact the Pre-Admission Testing department at [phone] or your surgeon's office with any questions [...] stay with you after surgery. Please call [facility] [employer] [facility] if you need transportation assistance or have concerns about going home [phone]. ? PEDIATRIC or ADOLESCENTS: Parents or a [...] signs of dehydration. Thank you for choosing [facility]; it is our pleasure to care for you documented in this encounter [facility] 12-25-2023 Instructions Víctor Goldberg APRN-CNP - [...] for pain Please hold all Vitamin E, [place] 3, fish oil and herbal supplements for 1 week prior to surgery Please hold Naltrexone 3 days prior to surgery. Last dose on 01/03. Please use this CHECKLIST to prepare for your surgery/procedure: ? Assume that any lab or testing done during your Pre-admission testing appointment is within normal limits unless otherwise contacted. ? Expect a call from [facility] one business day prior to surgery for [...] your Preparing for Your Surgery/Procedure booklet or [email or web address] if you have questions. Contact the Pre-Admission Testing department at [phone] or your surgeon's office with any questions [...] a car, cab, shared ride service, or [employer]-van. You will not be allowed to drive yourself home or travel home alone. Your surgery may be cancelled if you do not have a ride. A responsible adult must stay with you after surgery. Please call [employer] if you need transportation assistance or have concerns about going home [phone]. ? PEDIATRIC or ADOLESCENTS: Parents or a [...] signs of dehydration. Thank you for choosing [facility]; it is our pleasure to care for you documented in this encounter [facility] 12-25-2023 History of Present illness Narrative Images from the original note were not included. Pre-Admission Testing Consultation Vee Sarabia, [id number] 38 year old Female 12/26/2023 Consult placed to [facility] by Dr. Almaraz due to significant PMH of caries. [facility] Triage Risk Score Total Score: 2 [...] She is accompanied with her caregiver at [employer], Dora Saucedo, who is helping review the patient's current and past medical history. Gabriela Rodriguez (mother--phone-- [phone]) is legal guardian. RECENT ILLNESS: Serious illness [...] DENTAL RESTORATIONS; Surgeon: Fernando Kurtz DDS; Location: [facility] [place]; Service: Dental DENTAL RESTORATIONS N/A 11/05/2020 Procedure: DENTAL RESTORATIONS; Surgeon: Dru Friedman DDS; Location: 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 Pre-Admission Testing Consultation Vee Sarabia, [id number] 38 year old Female 12/26/2023 Consult placed to [facility] by Dr. Almaraz due to significant PMH of caries. [facility] Triage Risk Score Total Score: 2 [...] She is accompanied with her caregiver at [employer], Dora Saucedo, who is helping review the patient's current and past medical history. Gabriela Rodriguez (mother--phone-- [phone]) is legal guardian. RECENT ILLNESS: Serious illness [...] DENTAL RESTORATIONS; Surgeon: Fernando Kurtz DDS; Location: [facility] [place]; Service: Dental DENTAL RESTORATIONS N/A 11/05/2020 Procedure: DENTAL RESTORATIONS; Surgeon: Dru Friedman DDS; Location: 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 Almaraz due to significant PMH of caries. [facility] Triage Risk Score Total Score: 2 [...] She is accompanied with her caregiver at [employer], Dora Saucedo, who is helping review the patient's current and past medical history. Gabriela Rodriguez (mother--phone-- [phone]) is legal guardian. RECENT ILLNESS: Serious illness [...] DENTAL RESTORATIONS; Surgeon: Fernando Kurtz DDS; Location: [facility] [place]; Service: Dental DENTAL RESTORATIONS N/A 11/05/2020 Procedure: DENTAL RESTORATIONS; Surgeon: Dru Friedman DDS; Location: 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 [facility] 09-17-2023 Note [id number] [facility] 09-16-2023 Hospital Discharge instructions Patient Education 09/16/2023 08:49:14 Gastritis, Adult, Ltvh-wq-Xfiy Gastritis, Adult Gastritis is irritation and swelling [...] Follow these instructions at home: Medicines Take oiym-yxy-edznwtd and prescription medicines only as told by [...] provider. Document Revised: 09/07/2021 Document Reviewed: 09/07/2021 [employer] Patient Education 2022 [employer] 09/16/2023 08:49:01 Endoscopy, Care After Procedure [facility] Endoscopy Care After Procedure Please read the [...] Document Re-Released: 10/26/2006 ExitCare Patient Information 2009 [employer]. Follow Up Care 09/10/2023 09:54:49 With:Jessee Nina Address: [address] [place] [address], [address] [place] [address]- [phone] Business (1) When:1 to 2 weeks Comments:Call for any problems. [facility] 09-16-2023 Note Endoscopy Care After Procedure [...] Document Re-Released: 10/26/2006 ExitCare? Patient Information ?2009 [employer]. Infectious Disease Gastritis, Adult Gastritis is irritation [...] these instructions at home: Medicines ? Take pctr-ogc-yvecclr and prescription medicines only as told by [...] ask your do (more content not included)... [facility] 07-22-2022 History of Present illness Narrative [...] Legal Guardian is Gabriela Rodriguez( Mother ): [phone] Ashlie Sarabia [phone] Contact information; [facility] [phone] Extension# [phone] Next Visit: OR ----- Signed on Friday, July 22, 2022 at 12:31:54 PM ----- ----- Provider: Charbel Jain DDS -- Clinic: [place] ----- documented in this encounter [facility] 07-14-2020 Note Patient Outreach ([place] [facility]) VEE SARABIA ([id number]) 1985 F NFR Date Time Provider Department 07/14/20 PUMA SPEAR During your visit today, we recorded the following information about you: Allergies As of Date: 07/14/2020 Noted Allergy Reaction SEASONAL ALLERGIES 11/08/2010 16 - Unknown Date Reviewed: 07/05/2019 Reviewed by: Clover Ng Ma - Fully Assessed Order(s):SARS-COVID VACCINE 1ST DOSE APPT [[id number]] Order #: [id number] FUTURE Prescriptions as of 07/14/2020 Sig: FLUTICASONE [...] Encounter Status:Closed by SHERWIN DELCID on 07/17/20 [facility] Evaluation + Plan note No data available for this section [facility] Evaluation + Plan note Future Appointments Appointment Date:09/16/2023 08:00:00 AM Scheduled Provider: Location:[facility] Services Appointment Type:Surgery FT Future Scheduled TestsNM Gastric Emptying Study 09/10/23 [facility] Evaluation + Plan note Future Appointments Appointment Date:09/23/2023 10:30:00 AM Scheduled Provider: Location[facility] Appointment Type:NM Gastric Emptying Study (FT) Future Scheduled TestsNM Gastric Emptying Study 09/23/23 [facility] Evaluation note Diagnosis Caries- Primary Unspecified [...] instructions No data available for this section [facility] No data available for this section [facility] Summary Purpose Family History No Family [...] Surgery Diagnoses Caries Stacie Torres DMD [address] [place] [address] Moo Olsen DMD, MD [address] [place] [address] Referral ID Status Reason Start Date Expiration Date V isits Requested Visits Authorized [id number] Pending Review 02/03/2024 02/02/2025 3 3 Scheduling Instructions Please call the dial lathe operator Clinic at [facility] at to schedule an appointment if one was not made for you today. Question Answer Patient to be evaluated for: Extractions Tooth Number for Extraction Please evaluate patient for extractions of teeth # 12,13,14. Due to pt. nursing home Fosamax usage. Additional Source Comments INFORMATION SOURCE (unrecogn ized section and content) DATE CREATED AUTHOR 06/15/2021 [facility] DATE CREATED AUTHOR AUTHOR'S ORGANIZ ATION 10/01/2022 [facility] DATE CREATED AUTHOR AUTHOR'S ORGANIZ ATION 09/28/2023 [facility] DATE CREATED AUTHOR AUTHOR'S ORGANIZ ATION 01/06/2024 [facility]ical [facility] DATE CREATED AUTHOR AUTHOR'S ORGANIZ ATION 01/11/2024 [facility] Care Teams (unrecognized sec tion and content) Custodial Maintenance Worker Relationship Specialty Start Date End Date Rm Goldman DDS [address] [place] [address] Resident Dentistry 02/21/20 Mony Adler APRN-MEDICAL ADVISOR [address] [place] [address] POLICE SUPERINTENDENT Anesthesiology 11/16/20 Custodial Maintenance Worker Relationship Specialty Start Date End Date Rm Goldman DDS [address] [place] [address] Resident Dentistry 02/21/20 Mony Adler APRN-MEDICAL ADVISOR [address] [place] [address] POLICE SUPERINTENDENT Anesthesiology 11/16/20 Custodial Maintenance Worker Relationship Specialty Start Date End Date Rm Goldman DDS [address] [place] [address] Resident Dentistry 02/21/20 Mony Adler APRN-MEDICAL ADVISOR [address] [place] [address] [place] [address] POLICE SUPERINTENDENT Anesthesiology 11/16/20 Custodial Maintenance Worker Relationship Specialty Start Date End Date Rm Goldman [address] [address] Resident Dentistry 02/21/20 Mony Adler APRN-MEDICAL ADVISOR [address] [place] [address] [place] [address] POLICE SUPERINTENDENT Anesthesiology 11/16/20 Custodial Maintenance Worker Relationship Specialty Start Date End Date Rm Goldman [address] [address] Resident Dentistry 02/21/20 Mony Adler APRN-MEDICAL ADVISOR [address] [place] [address] [place] [address] POLICE SUPERINTENDENT Anesthesiology 11/16/20 Custodial Maintenance Worker Relationship Specialty Start Date End Date Rm Goldman DDS [address] [place] [address] Resident Dentistry 02/21/20 Mony Adler APRN-MEDICAL ADVISOR [address] [place] [address] [place] [address] POLICE SUPERINTENDENT Anesthesiology 11/16/20 Custodial Maintenance Worker Relationship Specialty Start Date End Date Susi RmKASSIDY [address] [place] [address] Resident Dentistry 02/21/20 Mony Adler APRN-CNP [address] [place] [address] [place] [address] POLICE SUPERINTENDENT Anesthesiology 11/16/20 Custodial Maintenance Worker Relationship Specialty Start Date End Date Rm Goldman, S [address] [place] [address] Resident Dentistry 02/21/20 Mony Adler APRN-CNP [address] [place] [address] [place] [address] POLICE SUPERINTENDENT Anesthesiology 11/16/20 Custodial Maintenance Worker Relationship Specialty Start Date End Date [facility] [address] [place] [address] Resident Dentistry 02/21/20 Mony Adler APRN-CNP [address] [place] [address] [place] [address] [employer] Anesthesiology 11/16/20 Custodial Maintenance Worker Relationship Specialty Start Date End Date Rm Goldman, [facility] [address] [place] [address] Resident Dentistry 02/21/20 Mony Adler APRN-CNP [address] [place] [address] [place] [address] [employer] Anesthesiology 11/16/20 Reason for Visit (unrecogniz ed section and content) Reason Onset Date Comments Pre-surgical Evaluation 01/06/2024 DD adult dental restorations 01/07 under [facility] at [facility]. PAT completed - consents obtained. MARY RN spoke to Cassidy, confirmed NPO except water only until 0900 (Cassidy stated pt does not like and will not drink water), [facility] address, and 1100 arrival time Specialty Diagnoses / Procedures Referred By Ebony t Referred To Contact Ambulatory Surgery Diagnoses Caries Caries [[email or web address]] Procedures ANESTHESIA, INTRAORAL PROC, W/BX; NOS UNLISTED PROCEDURE, DENTOALVEOLAR STRUCTURES DENTAL RESTORATIONS Stacie Torres DMD [address] [place] [address] [employer] [facility] [address] [facility] [address] Phone: [phone] Referral ID Status Reason Start Date Expiration Date Visits Re quested Visits Authorized [id number] 3 Reason Onset Date Comments Referral [...] on Thu01/08/24 at 1333, Until Thu01/08/24 at [phone] (Given - Provid er: Janie Coreas [...] BE BASED ON THE PRIMARY CLINICAL RECORDS. [email or web address]. provides no warranty or guarantee of the accuracy or completeness of information in this document.
[2024-03-29 07:49] LABS: Basophils Percent Auto 0.2 % (0.2-2.0); Eosinophils Percent Auto 0.2 % (0.9-7.0); Hematocrit 34.7 % (36.0-48.0); Hemoglobin 10.8 g/dL (12.0-16.0); Immature Granulocytes Abs Auto 0.01 10^3/uL (0.00-0.03); Immature Granulocytes Pct Auto 0.1 % (0.0-0.5); Lymphocytes Absolute Auto 2.9 10^3/uL (1.2-3.8); Lymphocytes Percent Auto 35.2 % (20.5-60.0); Mean Corpuscular HGB Conc 31.1 g/dL (29.9-35.2); Mean Corpuscular Hemoglobin 29.4 pg (26.7-34.0); Mean Corpuscular Volume 94.6 fL (81.0-99.0); Mean Platelet Volume 12.6 fL (9.5-13.5); Monocytes Absolute Auto 0.8 10^3/uL (0.3-0.8); Neutrophils Absolute Auto 4.5 10^3/uL (1.4-6.5); Neutrophils Percent Auto 54.3 % (43.0-75.0); Platelet Count 181 10^3/uL (150-450); Red Blood Count 3.67 10^6/uL (4.20-5.40); Red Cell Distribution Width 16.3 % (11.0-15.0); White Blood Count 8.3 10^3/uL (4.0-11.0)
[2024-03-29 09:04] LABS: Alanine Aminotransferase 9 U/L (14-59); Albumin Globulin Ratio 0.8; Albumin Level 3.1 g/dL (3.4-5.0); Alkaline Phosphatase 39 U/L (46-116); Anion Gap 14.3; Aspartate Amino Transferase 6 U/L (15-37); BUN Creatinine Ratio 23.6; Bilirubin Total 0.2 mg/dL (0.2-1.0); Calcium 9.1 mg/dL (8.5-10.1); Carbon Dioxide 28.8 mmol/L (21.0-32.0); Chloride 101 mmol/L (98-107); Estimated GFR (African America >60 (>=60 mL/min/1.73m^2); Estimated GFR (Non-African Ame >60 (>=60 mL/min/1.73m^2); Globulin 4.1 g/dL; Glucose 81 mg/dL (74-106); Potassium 4.1 mmol/L (3.5-5.1); Sodium 140 mmol/L (136-145); Thyroid Stimulating Hormone 0.995 uIU/mL (0.358-3.740); Total Protein 7.2 g/dL (6.4-8.2); Valproic Acid 91.6 ug/mL (50.0-100.0)
[2024-03-30 08:13] LABS: Carbamazepine(Tegretol),S 1.7 ug/mL (4.0-12.0)
== END 2024-03-29 06:56 | disposition home or self-care (01) ==
LOC: LAB 06:55
PROVIDERS: PCP Family Medicine; Visit Provider Family Medicine
DX: G40.909 Epilepsy, unspecified, not intractable, without status epilepticus (principal); D64.9 Anemia, unspecified; M85.80 Other specified disorders of bone density and structure, unspecified site; K59.00 Constipation, unspecified; G80.9 Cerebral palsy, unspecified; Z79.899 Other long term (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
CPT/HCPCS: 36415; 80053; 80156; 80164; 84439; 84443; 85025

== ENCOUNTER 2024-05-26 12:45 | Outpatient (OUT) | payer MEDICAID, SELFPAY | END 2024-05-26 12:46 | disposition home or self-care (01) | LOC: LAB 12:45 | PROVIDERS: PCP Family Medicine; Visit Provider Family Medicine | DX: D64.9 Anemia, unspecified (principal); M85.80 Other specified disorders of bone density and structure, unspecified site; Z79.899 Other long term (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; G80.9 Cerebral palsy, unspecified | CPT/HCPCS: 36415; 82306 ==

== ENCOUNTER 2024-10-05 09:35 | Outpatient (OUT) | payer MEDICAID, SELFPAY ==
--- OUTSIDE RECORDS SUMMARY | 2024-10-05 09:39 | XMS_ITS | CCD ---
Author Organization [facility] Care Team Providers Care Doctor Podiatric Medicine Name Role Phone Rm Goldman DDS Unavailable Mony Babin Unavailable KHRIS, DR STEF Whaley Consulting Unavailable ARGUETA, DR STEF Whaley Primary Care Unavailable ARGUETA, DR STEF Whaley Admitting Unavailable ARGUETA, DR STEF Whaley Attending Unavailable ARGUETA, DR STEF Whaley Consulting Unavailable ARGUETA, DR STEF Whaley Primary Care Unavailable ARGUETA, DR STEF Whaley Admitting Unavailable ARGUETA, DR STEF Whaley Attending Unavailable ARGUETA, DR STEF Whaley Attending Unavailable ARGUETA, DR STEF Whaley Consulting Unavailable ARGUETA, DR STEF Whaley Primary Care Unavailable ARGUETA, DR STEF Whaley Admitting Unavailable ARGUETA, DR STEF Whaley Consulting Unavailable ARGUETA, DR STEF Whaley Primary Care Unavailable ARGUETA, DR STEF Whaley Admitting Unavailable ARGUETA, DR STEF Whaley Attending Unavailable STEF ARGUETA Primary Care Physician Kelle Mohamad A. Admitting Unavailable Mouchli, Mohamad A. Attending Unavailable Mouchli, Mohamad A. Referring Unavailable Mouchli, Mohamad A. Admitting Unavailable Mouchli, Mohamad A. Attending Unavailable Mouchli, Mohamad A. Referring Unavailable ARGUETASTEF Admitting Unavailable ARGUETASTEF Attending Unavailable ARGUETA, STEF Attending Unavailable ARGUETA, STEF Admitting Unavailable Mouchli, Mohamad A. Attending Unavailable Rm Goldman DDS Unavailable Vitor SPARROW Mony Unavailable Stef Argueta MD Unavailable Suzi Bates DO Unavailable Oseas STONER OUT, Amy Unavailable PROVIDER, UNKNOWN Attending Unavailable PROVIDER, UNKNOWN Admitting Unavailable VÍCTOR GOLDBERG Attending Unavailable PROVIDER, UNKNOWN Admitting Unavailable PROVIDER, UNKNOWN Attending Unavailable PROVIDER, UNKNOWN Admitting Unavailable PROVIDER, UNKNOWN Admitting Unavailable MOO SCHILLING Attending Unavailable Oseas ATWOOD, Amy Unavailable AMY FAROOQ Attending Unavailable AMY FAROOQ Attending Unavailable AMY FAROOQ Attending Unavailable Allergies Allergy Classification Reported Allergen(s) Allergy Type Date of Onset Reaction(s) Facility (1 source) No Known Medication Allergies; Translations: [No Known Medication Allergies] Propensity to adverse reactions (disorder) [facility] (15 sources) Diazepam; Translations: [DIAZEPAM] Propensity to adverse reactions to drug [address] [place] [address] (15 sources) diphenhydrAMINE ; Translations: [DIPHENHYDRAMIN E] Drug Allergy 4 [facility] (15 sources) trichloroacetal dehyde; Translations: [CHLORAL HYDRATE] Drug Allergy 4 [facility] (6 sources) Octacosanol; Translations: [OCTACOSANOL] Drug Intolerance 1 Unknown [facility] Medications Current Medications Medication Drug Class(es) Dates Sig (Normalized) Sig (Original) acetaminophen 325 mg oral tablet (9 sources) acetaminophen (Tylenol) 325 MG tablet Active alendronic acid 35 mg oral tablet (17 sources) Bisphosphonate End: 01-08-2024 take 1 tablet by mouth every week in the morning alendronate (Fosamax) 35 MG tablet Take 1 tablet by mouth 1 (one) time per week In the morning, at least 30 min before first food, beverage, or medication of day Active bisacodyl 10 mg rectal suppository (9 sources) Stimulant Laxative bisacodyl (Dulcolax) 10 MG suppository Active take 10 mg rectal ro port gamble once daily as needed bisacodyl (Dulcolax) 10 MG suppository 1 0 mg by RECTAL route once daily as needed. Active busPIRone hydrochloride 15 mg oral tablet (15 sources) End: 01-08-2024 busPIRone (Buspar) 15 MG tablet Active cabergoline 0.5 mg oral tablet (15 sources) Ergot Derivative End: 01-08-2024 cabergoline (Dostinex) 0.5 MG tablet Active Calcium Carbonate (14 sources) Start: 09-10-2023 Maalox Antacid Barrier mg, Chewed, Daily, Refills(s) 0 Start Date: 09/10/23 Status: Ordered Oyster Shell 500 MG TABS Take by mouth. Active calcium carbonate 1250 mg / cholecalciferol 200 unt oral tablet (9 sources) Vitamin D Start: 12-07-2023 Calcium Carb-Cholecalciferol (Oyster Shell Calcium w/D) 500-5 MG-MCG tablet 12/07/2023 Active carBAMazepine (18 sources) Mood Stabilizer Start: 09-10-2023 carbamazepine Oral, TID, Refills(s) 0, Seizure Start Date: 09/10/23 Status: Ordered Start: 09-10-2023 carbamazepine Refills(s) 0 Start Date: 09/10/23 Status: Ordered carBAMazepine (T EGretol) 200 MG tablet Active End: 01-08-2024 carBAMazepine (TEGretol) 200 MG tablet Take 100 mg by mouth 3 times daily. Active cariprazine 6 mg oral capsule (9 sources) Atypical Antipsychotic Start: 10-22-2023 Vraylar 6 MG capsule 10/22/2023 Active chlorhexidine gluconate 1.2 mg/ml mouthwash (20 sources) Start: 01-08-2024 End: 01-08-2024 take 15 [...] Refill(s) 0 Start Date: 09/10/23 Status: Ordered chlorhexidine (P eridex) 0.12 % solution Active cholecalciferol 0.025 mg oral tablet (11 sources) Vitamin D Cholecalciferol (VITAMIN D) 1000 units TABS Take by mouth. Active clonazePAM 0.5 mg oral tablet (15 sources) Benzodiazepine End: 024 clonazePAM (KlonoPIN) 0.5 MG tablet Active cloNIDine hydrochloride 0.1 mg oral tablet (9 sources) Central alpha-2 Adrenergic Agonist take 1 tablet by mouth twice daily cloNIDine (CATAPRES) 0.1 MG tablet Take 0.1 mg by mouth 2 times daily. Active 12 hr dextromethorphan hydrobromide 30 mg / guaiFENesin 600 mg extended release oral tablet (9 sources) Uncompetitive G-jvmnre-Z-aspartate Receptor Antagonist, Sigma-1 Agonist Start: Dextromethorphan-guai FENesin (Mucus Relief DM) 30-600 MG tablet sustained-release 12 hour 07/28/2023 Active doxazosin 4 mg oral tablet (15 sources) alpha-Adrenergic Gaby End: doxazosin (Cardura) 4 MG tablet Active famotidine 20 mg oral tablet (20 sources) Histamine-2 Receptor Antagonist Start: take 20 mg by mouth once daily Pepcid 20 mg, Oral, Daily, Refills(s) 0, Control of stomach acid Start Date: 09/10/23 Status: Ordered Start: 09-10-2023 Pepcid Refills (s) 0 Start Date: 09/10/23 Status: Ordered Start: 11-29-2009 famotidine Ref ills(s) 0 Start Date: 11/29/09 Status: Ordered ferrous sulfate (13 sources) Start: 11-29-2009 ferrous sulfat e Oral, [...] lls(s) 0 Start Date: 11/29/09 Status: Ordered lamoTRIgine 100 mg oral tablet (17 sources) Mood Stabilizer, Anti-epileptic Agent End: 01-08-2024 lamoTRIgine (LaMICtal) 100 MG tablet Active Levetiracetam (20 sources) Start: 09-10-2023 levetiracetam Refills(s) 0 Start Date: 09/10/23 Status: Ordered Start: 11-29-2009 levetiracetam Oral, BID, Refills(s) 0, Seizure Start Date: 11/29/09 Status: Ordered Start: 11-29-2009 levetiracetam Refills(s) 0 Start Date: 11/29/09 Status: Ordered levETIRAcetam (K eppra) 500 MG tablet Active levothyroxine sodium 0.112 m g oral tablet (20 sources) l-Thyroxine levothyroxine (S ynthroid, Levoxyl) 75 MCG tablet Active End: 01-08-2024 levothyroxine (Synthroid, Le voxyl) 112 MCG tablet Active linaclotide 0.29 mg oral capsule (20 sources) Guanylate Cyclase-C Agonist Start: 11-17-2023 Linzess 290 MCG capsule Take 1 capsule by mouth At least 30 minutes before the first meal of the day on an empty stomach once a day. 11/17/2023 Active Start: 09-10-2023 take 1 ug by mouth once daily Linzess 290 mcg oral capsule mcg cap(s), Oral, Daily, Refills(s) 0 Start Date: 09/10/23 Status: Ordered Start: 10-17-2020 take 1 capsule by mo [facility] once daily Linzess 145 MCG CAPS capsule Take 145 mcg by mouth daily. 10/17/2020 Active Loratadine (20 sources) Start: 11-29-2009 loratadine 10 mg, Refills(s) 0 Start Date: 11/29/09 Status: Ordered loratadine (Clar itin) 10 MG tablet Active lurasidone hydrochloride 80 mg oral tablet (16 sources) Atypical Antipsychotic Start: 12-07-2023 take 1 tablet by mouth at mealtime lurasidone (Latuda) 80 MG tablet Take 1 tablet by mouth in the evening. Take with meals 12/07/2023 Active Start: 09-10-2023 lurasidone Ora l, Daily, Refills(s) 0 Start Date: 09/10/23 Status: [facility] lurasidone (LATUDA) 40 MG tablet Take 40 mg by mouth 2 times a day. Active 1 ml medroxyPROGESTERone prashant mcrae 150 mg/ml injection (18 sources) Progestin medroxyPROGESTER one (Depo-Provera) 150 MG/ML injection Active medroxyPROGESTER one (Depo-Provera) 150 MG/ML injection Inject 150 mg into the muscle once. Active medroxyPROGESTER one (Depo-Provera) 150 MG/ML injection Inject 150 mg into the muscle once. Active metoprolol tartrate 100 mg oral tablet (15 sources) beta-Adrenergic Gaby End: 01-08-2024 metoprolol tartrate (Lopressor) 100 MG tablet Active montelukast (20 sources) Leukotriene Receptor Antagonist Start: 09-10-2023 montelukast Daily, Refills(s) 0 Start Date: 09/10/23 Status: Ordered montelukast (Sin gulair) 10 MG tablet Active Naltrexone (20 sources) Opioid Antagonist Start: 11-29-2009 naltrexone R efills(s) 0 Start Date: 11/29/09 Status: Ordered naltrexone (Depa de) 50 MG tablet Active take 2 tablets by mouth twice da dany naltrexone 50 MG tablet Indications: take 2 tablets twice a day Take 50 mg by mouth daily Indications: take 2 tablets twice a day. Active 2 ml ondansetron 2 mg/ml injection (20 sources) Serotonin-3 Receptor Antagonist Start: 01-08-2024 End: 01-08-2024 take 4 mg intravenously once as needed for nausea 4 mg, Intravenous Push, PACU ONCE PRN, Starting on Thu01/08/24 at 1128, Until Thu01/08/24 at 1727, Nausea, Vomiting, PACU Now Start: 09-10-2023 Zofran Refills (s) 0 Start Date: 09/10/23 Status: Ordered ondansetron (Zof ran) 4 MG tablet Active 24 hr paliperidone 3 mg extended release oral tablet (15 sources) Atypical Antipsychotic paliperid one (Invega) 3 MG 24 hr tablet Active take 1 tablet by erica th once daily paliperidone (Invega) 3 MG 24 hr tablet Take 6 mg by mouth daily. Active End: 01-08-2024 take 2 tablets by mouth once daily paliperidone (INVEGA) 3 MG 24 hour tablet Take 6 mg by mouth daily. 01/08/2024 Discontinued (Discontinued by another Health Care Provider) pantoprazole 40 mg delayed release oral tablet (16 sources) Proton Pump Inhibitor Start: 12-07-2023 pantoprazole (ProtoNix) 40 MG EC tablet 12/07/2023 Active Start: 09-10-2023 pantoprazole 4 0 mg, Oral, Refills(s) 0, Control of stomach acid Start Date: 09/10/23 Status: Ordered Start: 09-10-2023 pantoprazole R efills(s) 0 Start Date: 09/10/23 Status: Ordered take 40 mg by mouth once daily p antoprazole (Protonix) 40 MG PACK oral packet Take 40 mg by mouth daily. Active pregabalin (20 sources) Start: 09-10-2023 pregabalin Ora l, TID, Refills(s) 0, Neuropathy Start Date: 09/10/23 Status: Ordered Start: 09-10-2023 pregabalin Ora l, Refills(s) 0 Start Date: 09/10/23 Status: Ordered pregabalin (Lyri ca) 75 MG capsule Active Phenergan (3 sources) Phenothiazine Start: 09-10-2023 Phenergan Oral , PRN as needed for nausea/vomiting, Refills(s) 0 Start Date: 09/10/23 Status: Ordered Start: 09-10-2023 Phenergan Refi lls(s) 0 Start Date: 09/10/23 Status: Ordered Risperidone (20 sources) Atypical Antipsychotic Start: 11-29-2009 risperi done [...] (Discontinued by another Health Care Provider) sennosides, SNF (20 sources) Start: 09-10-2023 senna Oral, BI D, Refills(s) 0, Constipation Start Date: 09/10/23 Status: Ordered Start: 09-10-2023 senna Refills( s) 0 Start Date: 09/10/23 Status: Ordered sennosides (Seno neo) 8.6 MG tablet Active sertraline 100 mg oral tablet (15 sources) Serotonin Reuptake Inhibitor End: 01-08-2024 sertraline (Zoloft) 100 MG tablet Active traZODone hydrochloride 100 mg oral tablet (15 sources) Serotonin Reuptake Inhibitor End: 01-08-2024 traZODone (Desyrel) 100 MG tablet Active Depakote (20 sources) Mood Stabilizer, Anti-epileptic Agent Start: 11-29-2009 Depakote Oral, BID, Refills(s) 0, Seizure Start Date: 11/29/09 Status: Ordered Start: 11-29-2009 Depakote Oral, TID, Refills(s) 0 Start Date: 11/29/09 Status: Ordered take 1 tablet by erica th once daily at bedtime divalproex (Depakote ER) 500 MG 24 hr tablet Take 500 mg by mouth Daily Do not crush, chew, or split. Take one in the am and 1 1/2 at bedtime Active End: 01-05-2024 take 2 capsules by mouth once daily in the morning divalproex (DEPAKOTE SPRINKLE) 125 MG CSDR capsule Indications: take 2 capsules by mouth every morning Take 125 mg by mouth Indications: take 2 capsules by mouth every morning. Active End: 01-05-2024 take 2 tablets by mouth twice daily at bedtime divalproex (DEPAKOTE) 500 MG enteric coated tablet Indications: take one tablet in the morning and 2 tablets at bedtime Take 500 mg by mouth 2 times daily Indications: take one tablet in the morning and 2 tablets at bedtime. 1 tab am and 2 tab hs Active VITAMIN D ORAL (11 sources) take 1000 [IU] by mo uth [...] Drug Class(es) Dates Sig (Normalized) Sig (Original) calcium chloride 0.0014 meq/ml / potassium chloride 0.004 meq/ml / sodium chloride 0.103 meq/ml / sodium lactate 0.028 meq/ml injectable solution (2 sources) Start: 01-08-2024 Intravenous, at 125 mL/hr, CONTINUOUS, Starting on Thu01/08/24 at 1200, Until Discontinued calcium polycarbophil (8 sources) End: 01-08-2024 take 20 [oz_av] by [...] Active chlorproMAZINE hydrochloride 50 mg oral tablet (6 sources) Phenothiazine End: 01-08-2024 take 50 mg by mouth at bedtime CHLORPROMAZINE HCL ORAL Take 50 mg by mouth at bedtime. 01/08/2024 Discontinued (Discontinued by another Health Care Provider) docusate sodium 100 mg oral capsule (8 sources) End: 01-08-2024 take 2 capsules by mouth three times daily docusate sodium (COLACE) 100 MG capsule Indications: take 2 capsules by mouth 3 times daily Take 100 mg by mouth Indications: take 2 capsules by mouth 3 times daily. 01/08/2024 Discontinued (Discontinued by another Health Care Provider) guanFACINE 1 mg oral tablet (6 sources) Central alpha-2 Adrenergic Agonist End: 01-08-2024 take 1 tablet by mouth at bedtime guanfacine (TENEX) 1 MG tablet Take 1 mg by mouth at bedtime. 01/08/2024 Discontinued (Discontinued by another Health Care Provider) iloperidone 2 mg oral tablet (6 sources) Atypical Antipsychotic End: 01-08-2024 Iloperidone (Fanapt) [...] Peds or for suspected overdose, PACU Now 20 ml sodium chloride 9 mg/ml injection (1 source) Start: 01-08-2024 3 mL, Intravenous Push, PRN, Starting on Thu01/08/24 at 1128, Until Discontinued, For medication administration and blood draw, PACU Now Problems Active Problems Problem Classification Problem Date Documented Da te Episodic/Chronic Attention-deficit, conduct, and disruptive behavior disorders (5 sources) Disruptive behavior disorder 07-29-2013 Chronic Attention-deficit, conduct, and disruptive behavior disorders (13 sources) Conduct disorder; Translations: [Other conduct disorders] Onset: 10-08-2007 12-30-2023 Chronic Biliary tract disease (5 sources) Biliary calculus 07-29-2013 Episodic Developmental disorders (20 sources) Severe intellectual disability; Translations: [Intellectual disability] Onset: 10-08-2007 07-29-2013 Chronic Disorders of teeth and jaw (20 sources) Dental caries; Translations: [Dental caries, unspecified] Onset: 02-09-2019 10-12-2020 Episodic Disorders usually diagnosed in infancy, childhood, or adolescence (5 sources) Autism spectrum disorder 07-29-2013 Chronic Epilepsy; convulsions (19 sources) Epilepsy, unspecified, not intractable, without status epilepticus; Translations: [Seizure disorder] Onset: 10-08-2007 Chronic Epilepsy; convulsions (5 sources) Seizure disorder 07-29-2013 Episodic Impulse control disorders, NEC (5 sources) Impulse control disorder 07-29-2013 Chronic Mood disorders (12 sources) Bipolar disorder, unspecified; Translations: [Bipolar disorder] Onset: 10-08-2007 12-30-2023 Chronic Nausea and vomiting (1 source) Nausea and vomiting; Translations: [Nausea with vomiting, unspecified] Onset: 09-10-2023 Episodic Open wounds of extremities (4 sources) Unspecified open wound, left foot, initial encounter; Translations: [UNS OPEN WOUND LEFT FOOT INITIAL] Onset: 08-19-2022 Episodic Osteoporosis (5 sources) Osteoporosis 07-29-2013 Chronic Other aftercare (5 sources) Other terminal manager (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; Translations: [OTH ROLLING MILL PLUGGER CURRENT DRUG THERAPY] Onset: 05-03-2022 Episodic Other gastrointestinal disorders (5 sources) Constipation 07-29-2013 Episodic Other gastrointestinal disorders (1 source) Other constipation; Translations: [Other constipation] Onset: 09-10-2023 Episodic Other nutritional; endocrine; and metabolic disorders (3 sources) Body mass index 30+ - obesity; [...] (5 sources) Seasonal allergy 11-29-2009 Chronic Paralysis (20 sources) Spastic cerebral palsy; 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] Onset: 06-17-2002 02-03-2019 Chronic Residual codes; unclassified (1 source) Early satiety; Translations: [Early satiety] Onset: 09-10-2023 Episodic Thyroid disorders (1 source) Hypothyroidism, unspecified; Translations: [HYPOTHYROIDISM UNSPECIFIED] Onset: 09-22-2022 Chronic Unclassified (5 sources) Bipolar (qualifier value) 08-26-2010 Past or Other Problems Problem Classification Problem Date Documented Date Episodic/Chronic E Codes: Adverse effects of medical drugs (9 sources) Sequela of disorder; Translations: [Adverse effect of unspecified drugs, medicaments and biological substances, sequela] Onset: 05-02-2009 12-30-2023 Episodic Other aftercare (10 sources) Surgical follow-up; Translations: [Encounter for follow-up examination after completed treatment for conditions other than malignant neoplasm] Onset: 10-04-2002 07-22-2022 Episodic Other connective tissue disease (10 sources) Finding of thigh; Translations: [Other specified disorders of muscle] Onset: 12-09-2010 07-22-2022 Episodic Other nervous system disorders (10 sources) [place] gait; Translations: [Other abnormalities of gait and mobility] Onset: 12-09-2010 07-22-2022 Episodic Other nutritional; endocrine; and metabolic disorders (11 sources) Loss of appetite; Translations: [Anorexia] Onset: 03-16-2008 12-30-2023 Episodic Other nutritional; endocrine; and metabolic disorders (8 sources) Weight loss; Translations: [Abnormal weight loss] Onset: 03-16-2008 12-30-2023 Episodic Other nutritional; endocrine; and metabolic disorders (3 sources) Weight decreased; Translations: [Abnormal weight loss] Onset: 03-16-2008 12-30-2023 Episodic Other screening for suspected conditions (not mental disorders or infectious disease) (3 sources) Electrocardiogram abnormal; Translations: [Abnormal electrocardiogram [ECG] [EKG]] Onset: 12-25-2023 12-28-2023 Episodic Results Test Name Value Interpretation Reference Range Facility Progress Noteson 07-18-2024 Pin Pusher Authentication Interface Message Text Teaching Physician Note: I saw and evaluated the patient. I personally obtained the michelle and critical portions of the history and physical exam. I reviewed the resident's documentation and discussed the patient with the resident. I agree with the resident's medical decision making as documented in the resident's note. Moo Schilling DMD, MD Normal [facility] Tele[facility] En[facility] 2024 Pin Pusher Authentication Interface Message Text Please call [facility] back at Telephone Information: To discuss the need to remove teeth apparently pt mother wants a detailed explanation form facility as why thye extraction is needed [facility] did read that it was due to decay and stated this to facility Normal [facility] [employer] [facility] Progress Noteson 07-13-2024 Pin Pusher Authentication Interface Message Text [facility] PATIENT VISIT CHIEF COMPLAINT: Pain HISTORY OF PRESENT ILLNESS: Pt is a 39yoF, PMH remarkable for ADHD, Autism, Cerebral palsy, Impulse control disorder, seizure disorder, osteoporosis (pt has hx of alendronate 5+yrs stopped in 12/2023) , bipolar disorder, referred to [facility] for extraction of teeth #12,13,14. PAST MEDICAL HISTORY: Past Medical History: Diagnosis Date [...] 01/25/19 Severe intellectual disability OSH H+P 01/25/19 Patient Active Problem List: Cerebral palsy (HCC) [G80.9] Dental caries [K02.9] Dental decay [K02.9] Hamstring tightness [M62.89] Examination following surgery [Z09] Crouched gait [R26.89] Caries [K02.9] Anorexia [R63.0] Disruptive behavior disorder [F91.9] Impulse control disorder [F63.9] Osteoporosis [M81.0] Other bipolar disorder (HCC) [F31.89] Autism spectrum disorder (HCC) [F84.0] Severe intellectual disability with intelligence quotient 20 to 34 [F72] Seizure disorder (HCC) [G40.909] Hypothyroidism, unspecified [E03.9] Epilepsy, unspecified, not intractable, without status epilepticus (HCC) [G40.909] Bipolar 1 disorder (HCC) [F31.9] REVIEW OF SYSTEMS: A 12-point review of systems was completed. Negative unless otherwise stated in HPI. MEDICATIONS: Current Outpatient Medications Medication Sig Dispense Refill Cariprazine HCl (Vraylar) 6 MG CAPS capsule guaifenesin-dextromethor winkler (MUCINEX DM) 30-600 MG tablet Promethazine HCl (PHENERGAN INJ) Take by mouth. risperiDONE (RISPERDAL) 3 MG tablet D3-1000 25 MCG (1000 UT) CAPS capsule divalproex ER (DEPAKOTE ER) 250 MG ER tablet divalproex ER (DEPAKOTE ER) 500 MG ER tablet Linzess 290 MCG CAPS capsule Take 290 mcg by mouth daily. lurasidone (LATUDA) 80 MG tablet Take 1 Tablet by mouth. pantoprazole (PROTONIX) 40 MG tablet CARBAMAZEPINE ORAL Take by mouth. Calcium Carb-Cholecalciferol (Oyster Shell Calcium w/D) 500-5 MG-MCG TABS chlorhexidine (Peridex) 0.12 % oral solution Swish mouth with 15 mL by mouth 2 times daily. DO NOT SWALLOW 473 mL 3 medroxyPROGESTERone (Depo-Provera) 150 MG/ML injection Inject 150 mg into the muscle once. ondansetron (Zofran) 4 MG tablet Take 4 mg by mouth every 12 hours as needed for Nausea. cloNIDine (CATAPRES) 0.1 MG tablet Take 0.1 mg by mouth 2 times daily. VITAMIN D ORAL Take 1,000 Units by mouth daily. montelukast (SINGULAIR) 10 MG [...] take 2 capsules by mouth every morning. No current facility-administered medications for this visit. ALLERGIES: Benadryl [diphenhydramine], Chloral hydrate, Octacosanol, and Valium [diazepam] SURGICAL HX: Past Surgical History: Procedure Laterality Date CHOLECYSTECTOMY 2008 OSH H+P 01/25/19 DENTAL RESTORATIONS N/A 02/11/2019 Procedure: DENTAL RESTORATIONS; Surgeon: Fernando Kurtz DDS; Location: [facility] Surgery [place]; Service: Dental DENTAL RESTORATIONS N/A 11/05/2020 Procedure: DENTAL RESTORATIONS; Surgeon: Dru Friedman DDS; Location: [facility]; Service: Dental DENTAL RESTORATIONS N/A 01/08/2024 Procedure: DENTAL RESTORATIONS; Surgeon: Stacie Torres DMD; Location: [facility]; Service: Dental SOCIAL HX: Tobacco: Never CLINICAL EXAMINATION Extraoral examination: No significant findings No s/s of infection, redness or tenderness to palpation No facial asymmetry or swelling No appreciable LAD No tenderness to palpation of temporalis or masseter Asymptomatic function Intraor (more content not included)... Normal [facility] [employer] [facility] Pin Pusher Authentication Interface Message Text Normal [facility] Pin Pusher Authentication Interface Message Text Normal [facility] [facility] Telephone Encounteron 2024 Pin Pusher Authentication Interface Message Text Missed Call Pt's mom/guardian, Gabriela, said she missed a call from Oral Surgery and would like a call back. Please call Gabriela at [phone]. Thanks! Normal [facility] [facility] Telephone Encounteron 2023 Pin Pusher Authentication Interface Message Text pt was seen in OR 01/08/24 , Stacie Montalvo DMD recommended that the pt be seen by [facility] fro care AND follow up. in progess notes it states Referral placed to [facility] but NO referral can be found in pt's chart. please place referral for oral surgery. Message sent to [facility] Kary on January 13 2024 board. Message placed on board 01/11/24 @ 1152 am Normal [facility] [employer] [facility] Anesthesia Postprocedure Felicia amanda 01-08-2024 Pin Pusher Authentication Interface Message Text Anesthesia Postoperative Assessment: [...] EVENTS: No notable events documented. Normal [facility] Anesthesia Preprocedure Eval uationon 01-08-2024 Pin Pusher Authentication Interface Message Text ASA: 3 No [...] LORENZA PARKS ([id number]) on 12/28/2023 8:11:02 PM GI/Hepatic/Renal Comment: - S/P cholecystectomy 2009 Heme/Other - negative ROS Other ROS: - Hx. Of dental restorations - Seasonal allergies - Gabriela Rodriguez (mother--phone-- [phone]) is legal guardian Physical Exam Airway Mallampati: [...] alternatives discussed pre-op (Anesthesia consent scanned into [employer].) Questions answered / anesthesia plan accepted (Anesthesia consent scanned into [employer].) Past medical history, surgical history, allergies, and medications reviewed and Pertinent laboratory tests, EKG, imaging, and consults reviewed Attestation: Anesthesia options were discussed with the patient and/or legal territory sales representative. The risks, benefits and alternatives were reviewed. Questions regarding anesthesia were answered. Patient and/or legal territory sales representative knows such anesthetics and procedures may be performed by Resident physicians, Certified Anesthesiologist Assistants, or Certified Nurse Anesthetists under the supervision of a physician. The patient /or the patient's legal territory sales representative agree with the plan for anesthesia. Comment: Anesthesia consent scanned into [employer]. MHPATFORM Normal The [employer] [facility] Anesthesia Transfer Of Careo n 01-08-2024 Pin Pusher Authentication Interface Message Text Patient taken to [...] RESTORATIONS; Surgeon: Fernando Kurtz DDS; Location: [facility] Surgery [place]; Service: Dental DENTAL RESTORATIONS (11/05/2020) Procedure: DENTAL RESTORATIONS; Surgeon: Dru Friedman DDS; Location: [facility] Surgery [place]; Service: Dental Allergies: Benadryl [diphenhydramine], Chloral hydrate, and Valium [diazepam] Basic Operating Room Facts: Surgeon(s): Stacie Torres DMD Anesthesiologist: Justin Shin MD CAA: Eduarda James CAA Casey Saw Operator: Dania Melara MD DENTAL RESTORATIONS Intraoperative Events: [...] None Lines, Drains, Airways Peripheral IV Access: 01/08/248 22 gauge Right Forearm (Active) Site Assessment WNL 01/08/24 1558 Infusion Status Port #1 Infusing [...] Naris 01/08/24 1433 Secured via: Taped 01/08/24 143 Site Assessment WNL 01/08/24 143 All non-working IVs have been removed: N/A [...] was received. Justin Shin MD Normal [facility] [employer] [facility] Blood Attestationon 01-08-20 Pin Pusher Authentication Interface Message Text Blood Attestation: ATTESTATION OF INFORMED CONSENT FOR BLOOD: The transfusion of blood and/or blood components were discussed with the patient and/or legal territory sales representative. The risks, benefits and alternatives were reviewed. Questions regarding blood transfusions were answered. The patient /or the patient's legal territory sales representative agree with the plan for transfusion of blood and/or blood components. Normal [facility] [employer] [facility] Brief Operative Noteon 01-07 Pin Pusher Authentication Interface Message Text Brief Operative Note PHE OR 3 Vee Sarabia 38 year old female Surgical Contact Serial Number: [id number] Preoperative Diagnosis: ADHD (attention deficit hyperactivity disorder) ([facility]) 10/08/2007 Anorexia 03/16/2008 Cerebral palsy ([facility]) 10/08/2007 Late effect of adverse effect of drug, medical or biological substance 05/02/2009 Mental impairment ([facility]) 10/08/2007 Mental retardation Other bipolar disorder ([facility]) 10/08/2007 Other conduct disorders ([facility]) 10/08/2007 Seizure disorder ([facility]) 10/08/2007 Postoperative Diagnosis: ADHD (attention deficit hyperactivity disorder) ([facility]) 10/08/2007 Anorexia 03/16/2008 Cerebral palsy ([facility]) 10/08/2007 Late effect of adverse effect of drug, medical or biological substance 05/02/2009 Mental impairment ([facility]) 10/08/2007 Mental retardation Other bipolar disorder ([facility]) 10/08/2007 Other conduct disorders ([facility]) 10/08/2007 Seizure disorder ([facility]) 10/08/2007 Procedures: Full mouth X-ray [78300] Full mouth cleaning [63653] Restorations [86329] Surgeon(s): Surgeon(s): Stacie Torres DMD Yoris, Orlando, DDS Staff: Location Director Nurse: Gabriel Hinkle Undercar Specialist: Chandler Parham DDS Anesthesia: General Anesthesiologist: Justin [...] Marin DDS 01/08/2024 1:48 PM Normal [facility] HCG, QUANTITATIVEon 01-08-20 24 HCG Qn NINF [facility] Interpretation and review of laboratory results [facility] HCG < 0.6 Normal <5.0 [facility] Comment on above: Performed By: #### H CG #### [facility] [id number] [place] [address], [address] OP Noteon 01-08-2024 Pin Pusher Authentication Interface Message Text Operative Note PHE OR 3 Vee Sarabia 38 year old female Surgical Contact Serial Number: [id number] Preoperative Diagnosis: ADHD (attention deficit hyperactivity disorder) ([facility]) 10/08/2007 Anorexia 03/16/2008 Cerebral palsy ([facility]) 10/08/2007 Late effect of adverse effect of drug, medical or biological substance 05/02/2009 Mental impairment ([facility]) 10/08/2007 Mental retardation Other bipolar disorder ([facility]) 10/08/2007 Other conduct disorders ([facility]) 10/08/2007 Seizure disorder ([facility]) 10/08/2007 Postoperative Diagnosis: ADHD (attention deficit hyperactivity disorder) ([facility]) 10/08/2007 Anorexia 03/16/2008 Cerebral palsy ([facility]) 10/08/2007 Late effect of adverse effect of drug, medical or biological substance 05/02/2009 Mental impairment ([facility]) 10/08/2007 Mental retardation Other bipolar disorder ([facility]) 10/08/2007 Other conduct disorders ([facility]) 10/08/2007 Seizure disorder ([facility]) 10/08/2007 Surgeon: Stacie Torres DMD Geriatric Psychiatrist Surgeon: Chandler Marin DDS Anesthesia: General- Nasal [...] Marin DDS 01/08/2024 1:53 PM Normal [facility] [employer] [facility] Progress Noteson 01-08-2024 Pin Pusher Authentication Interface Message Text [id number] Discharge instructions reviewed, caregiver states pt on mouth was at home therefore does not wish to wait for prescription Normal [facility] [employer] [facility] Pin Pusher Authentication Interface Message Text ----- Monday, January 08, 2024 at 3:45:54 PM ----- ----- Provider: Jarrett Torres DMD -- Clinic: [facility] ----- Pt was seen in OR under general anesthesia. comp exam, FMX and 4 quads SRP completed. Topical fluoride applied. #8 MIDLF broken tooth restored with composite. #12,13,14 present with non- restorable cervical lesions interproximally. 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 Referral placed to [facility] See note attached. Operative Note PHE OR 3 Vee Sarabia 38 year old female Surgical Contact Serial Number: [id number] Preoperative Diagnosis: ADHD (attention deficit hyperactivity disorder) ([facility]) 10/08/2007 Anorexia 03/16/2008 Cerebral palsy ([facility]) 10/08/2007 Late effect of adverse effect of drug, medical or biological substance 05/02/2009 Mental impairment ([facility]) 10/08/2007 Mental retardation Other bipolar disorder ([facility]) 10/08/2007 Other conduct disorders ([facility]) 10/08/2007 Seizure disorder ([facility]) 10/08/2007 Postoperative Diagnosis: ADHD (attention deficit hyperactivity disorder) ([facility]) 10/08/2007 Anorexia 03/16/2008 Cerebral palsy ([facility]) 10/08/2007 Late effect of adverse effect of drug, medical or biological substance 05/02/2009 Mental impairment ([facility]) 10/08/2007 Mental retardation Other bipolar disorder ([facility]) 10/08/2007 Other conduct disorders ([facility]) 10/08/2007 Seizure disorder ([facility]) 10/08/2007 Surgeon: Stacie Torres DMD Geriatric Psychiatrist Surgeon: Chandler Marin DDS Anesthesia: General- Nasal [...] at end of surgery: Stable Normal [facility] [employer] [facility] Anesthesia Preprocedure Eval uationon 01-07-2024 Pin Pusher Authentication Interface Message Text ASA: 3 Past [...] previous ECGs available Confirmed by LORENZA PARKS ([id number]) on 12/28/2023 8:11:02 PM GI/Hepatic/Renal Comment: - S/P cholecystectomy 2009 Heme/Other Other ROS: - Hx. Of dental restorations - Seasonal allergies - Gabriela Rodriguez (mother--phone-- [phone]) is legal guardian Physical Exam Airway Dental Dentition: dental caries. Pulmonary Cardiovascular Neuro Disoriented and motor deficit Comment: Cerebral palsy Plan Anesthesia plan: general; (ETT) Anesthesia risks / alternatives discussed pre-op (Anesthesia consent scanned into [employer].) Questions answered / anesthesia plan accepted (Anesthesia consent scanned into [employer].) Past medical history, surgical history, allergies, and medications reviewed and Pertinent laboratory tests, EKG, imaging, and consults reviewed Attestation: Comment: Anesthesia consent scanned into [employer]. MHPATFORM Normal [facility] [employer] [facility] Cardiologyon 12-28-2023 P wave axis 23 degrees [facility] P-R Interval 130 ms [facility] Q-T interval 390 ms [facility] Q-T interval corrected 435 ms [facility] QRS axis 42 degrees [facility] QRS duration 86 ms [facility] T wave axis 16 degrees [facility] No Panel Informationon 12-27 Diagnosis Normal sinus rhythm Nonspecific T wave abnormality Abnormal ECG No previous ECGs available Confirmed by LORENZA PARKS ([id number]) on 12/28/2023 8:11:02 PM [facility] P wave Atrium by EKG 75 BPM [facility] Telephone Encounteron 2023 Pin Pusher Authentication Interface Message Text Anesthesia consent scanned into [employer]. Normal [facility] BASIC METABOLIC PANELon Anion gap [Moles/Vol] 13 mmol/L Normal 10-20 [facility] Comment on above: Performed By: #### C H8 #### S [facility] [address] [place] [address], Calcium [Mass/Vol] 9.0 mg/dL Normal 8.6-10.3 [facility] Comment on above: Performed By: #### C H8 #### [facility] [address] [place] [address], Chloride [Moles/Vol] 102 mmol/L Normal 98-107 [facility] Comment on above: Performed By: #### C H8 #### [facility] [address] [place] [place] [address], CO2 [Moles/Vol] 23 mmol/L Normal 21-31 [facility] Comment on above: Performed By: #### C H8 #### [facility] [address] [place] [address], Creatinine [Mass/Vol] 0.36 mg/dL Low 0.60-1.20 [facility] Comment on above: Performed By: #### C H8 #### [facility] [address] [place] [address], ESTIMATED GFR (CKD-EPI) 133 mL/min/1.73sqm Normal >=60 [facility] Comment on above: Result Comment: 2020 [...] Inclusion of Race in Diagnosing Kidney Disease. Indonesian Journal of Kidney Diseases 2021;79(2):268-88.e1. 2. N Engl J Med 1 Vol. 385 Issue 19 Pages [phone] Performed By: #### C H8 #### [facility] [address] [place] [address], Glucose [Mass/Vol] 85 mg/dL Normal 74-109 [facility] Comment on above: Performed By: #### C H8 #### [facility] [address] [place] [address], Potassium [Moles/Vol] 4.4 mmol/L Normal 3.5-5.0 [facility] Comment on above: Performed By: #### C H8 #### [facility] [address] [place] [address], Sodium [Moles/Vol] 134 mmol/L Low 136-145 [facility] Comment on above: Performed By: #### C H8 #### [facility] [address] [place] [address], Urea nitrogen [Mass/Vol] 7 mg/dL Normal 7-25 [facility] Comment on above: Performed By: #### C H8 #### [facility] [address] [place] [address], Basic metabolic 2000 panelon 12-25-2023 Anion gap [Moles/Vol] 13 mmol/L 10 - 20 Met [facility]al Calcium [Mass/Vol] 9.0 mg/dL 8.6 - 10. [...] Inclusion of Race in Diagnosing Kidney Disease. [place] Journal of Kidney Diseases 2021;79(2):268-88.e1. 2. N Engl J Med 2020 Vol. 385 Issue 19 Pages 3082-4280 Glucose [Mass/Vol] 85 mg/dL 74 - 109 [...] [facility] RBC (Bld) [#/Vol] 3.48 10*6/uL Low [facility] WBC (Bld) [#/Vol] 5.3 10*3/uL 4.5 - 11.5 K/uL [facility] COMPLETE BLOOD COUNTon 12-24 Erythrocyte distribution width (RBC) [Ratio] 16.1 % High 11.5-14.5 [facility] Comment on above: Performed By: #### C BC ####[facility] [id number] [place] [address], Hematocrit (Bld) [Volume fraction] 33.5 % Low 36.0-46.0 [facility] Comment on above: Performed By: #### C BC ####[facility] [address] [place] [address], Hemoglobin (Bld) [Mass/Vol] 10.8 g/dL Low 12.0-15.0 The [facility] System Comment on above: Performed By: #### C BC ####[facility] [address] [place] [address], MCH (RBC) [Entitic mass] 31.1 pg Normal 26.0-34.0 The [facility] System Comment on above: Performed By: #### C BC ####[facility] [id number] [place] [address], MCHC (RBC) [Mass/Vol] 32.3 g/dL Normal 32.0-35.9 The [facility] System Comment on above: Performed By: #### C BC ####[facility] [id number] [place] [address], MCV (RBC) [Entitic vol] 96 fL Normal 80-100 T [facility] System Comment on above: Performed By: #### C BC ####[facility] [id number] [place] [address], Platelet mean volume (Bld) [Entitic vol] 9.3 fL Normal 7.5-11.2 The [facility] System Comment on above: Performed By: #### C BC ####[facility] [address] [place] [address] [place], Platelets (Bld) [#/Vol] 425 10*3/uL High 150-400 The [employer] [facility] Comment on above: Performed By: #### C BC ####S PATHOLOGY LOVWTKZPPX4393 [place], [place], RBC (Bld) [#/Vol] 3.48 10*6/uL Low 4.00-5.20 [facility] Comment on above: Performed By: #### C BC ####S PATHOLOGY BKREGHTCDU5405 [place], [place], WBC (Bld) [#/Vol] 5.3 10*3/uL Normal 4.5-11.5 [facility] Comment on above: Performed By: #### C BC ####S PATHOLOGY OEOSRHIDTK3223 [place], [place], Patient Instructionson 12-24 Pin Pusher Authentication Interface Message Text On the morning [...] for pain Please hold all Vitamin E, Cushman 3, fish oil and herbal supplements for 1 week prior to surgery Please hold Naltrexone 3 days prior to surgery. Last dose on 01/03. Please use this CHECKLIST to prepare for your surgery/procedure: ? Assume that any lab or testing done during your Pre-admission testing appointment is within normal limits unless otherwise contacted. ? Expect a call from [employer] one business day prior to surgery for [...] your Preparing for Your Surgery/Procedure booklet or [email or web address] if you have questions. Contact the Pre-Admission Testing department at [phone] or your surgeon's office with any questions [...] stay with you after surgery. Please call [employer] if you need transportation assistance or have concerns about going home [phone]. ? PEDIATRIC or ADOLESCENTS: Parents or a [...] result (more content not included)... Normal [facility] [employer] [facility] Progress Noteson 12-10-2023 Pin Pusher Authentication Interface Message Text Parent/guardian/patient was contacted for PSE AND OR scheduled -- confirmed information with mom, also informed mom importance of receiving PSE call -- if not received surgery will be canceled OR date 01/08/2024 ----- November at 11:39:35 AM ----- ----- Provider: N[facility] -- Clinic: [place] ----- Normal [facility] [employer] [facility] NM Gastric Emptying Studyon 09-27-2023 NM [...] 30.4 3.0 hr (Upper Limit 30%) 1.5 [facility] Consent for Treatmenton Consent for Treatment [id number] F [facility] IntraOperative Documentson 0 09-18-2023 IntraOperative Documents [id number]#1.00TIF F [facility] Progress Note-Physicianon Progress Note-Physician Patient: VEE [...] mental retardation (I.Q. 20-34) / SNOMED CT 74313343 / Confirmed Seizure disorder / SNOMED CT 667064159 / Confirmed Seasonal allergy / SNOMED CT 2522769131 / Confirmed Pervasive developmental disorder / SNOMED CT 41575468 / Confirmed Osteoporosis / SNOMED CT 862650564 / Confirmed Impulse control disorder / SNOMED CT 828749010 / Confirmed Disruptive behavior disorder / SNOMED CT 01557528 / Confirmed Constipation / SNOMED CT 25140556 / Confirmed Cholelithiasis / SNOMED CT 476965930 / Confirmed Cerebral palsy / SNOMED CT 185651195 / Confirmed Bipolar / SNOMED CT 197026743 / Confirmed Histories Procedure history: No active procedure history items have been selected or recorded. Social History Social & Psychosocial Habits Tobacco 09/10/2023 Tobacco Use: Never (less than 100 in l Smokeless tobacco use: Never . Physical Examination Airway: Mallampati classification: II (soft palate, fauces, uvula visible). Respiratory: adequate air exchange. Cardiovascular: Regular rhythm. Plan [place] Society of Anesthesiologists (ASA) physical status classification: Class III. Anesthetic Preoperative Plan: Anesthesia General. Normal [facility] Comment on above: Result Comment: [...] when meets criteria ( To home ). [facility] Comment on above: Result Comment: Elec tronically Signed By: Chaim Phillips Jr, DO\.br\Date and Time Signed: 09/18/23 08:45 EDT Consenton 09-17-2023 Consent [id number]#1.00TI [facility] Discharge Instructionson Discharge Instructions [id number]#1.00TI [facility] Main OR Intraoperative Recor don 09-17-2023 Main OR Intraoperative Record IntraOp Document Type FT Summary Primary Physician: Jessee Nina MD Finalized Date/Time: 09/17/23 09:56:06 Pt. Name: VEE SARABIA Tawanda Moses/Sex: 1985 Female Med Rec #: [id number] Physician: Jessee Nina MD Financial #: [id number] Pt. Type: O Room/Bed: / Admit/Disch: 09/16/23 [...] 3 Case Attendee Margret SALMON, James Haynes RIBBON BLOCKMAKER, Josefa Nina MD, Jessee Cerda Role Performed Anesthesiologist Scrub - Primary Surgeon - Primary Geriatric Psychiatrist Time In 09/16/23 08:21:00 09/16/23 08:21:00 09/16/23 08:21:00 Time Out 09/16/23 08:33:00 09/16/23 08:33:00 09/16/23 08:33:00 Procedure EGD(.) EGD(.) EGD(.) Comments Dr. Phillips is supervising Last Modified By: Kevin HERMOSILLO, Wendy Brown RN, Wendy Dennis RN 09/16/23 08:32:53 09/16/23 08:32:53 09/16/23 08:32:53 Entry 4 Case Attendee Wendy Brown RN Role Performed Location Director - Primary Time In 09/16/23 08:21:00 Time [...] Out James Sidhu Given Participants Ivy Gonsales CST, Kelle Bean MD, Jessee Chester, Wendy [...] and tissue Entry 1 Skin Integrity Intact, Holcomb, Warm, and Skin Abnormality No Dry Outcomes [...] Leg Po (more content not included)... Normal [facility] Consent for Treatmenton Consent for Treatment [id number]#[id number] F Normal [facility] Discharge Instructionson Discharge Instructions VEE SARABIA :1985 Visit Date:09/16/2023 Inpatient Discharge Instructions Your [...] weeks Comments: Call for any problems. Where: [address] [place] [address], [address] [place] [address]- [phone] Business (1) Medications What How Much When [...] medicines, such (more content not included)... Normal [facility] Comment on above: Result Comment: Elec tronically Signed By: Stacie Prescott RN\.bryson\Date and Time Signed: 09/16/23 08:49 EDT Pippa [...] duodenum status post biopsies. Images Procedure images: Rec_hd_video_ [id number].jpg Rec1_hd_video_ [id number].jpg Rec_hd_video_ [id number].jpg Rec1_hd_video_ [id number].jpg . Post-Procedure Complications: none. Estimated blood loss: minimal. Specimens: sent to pathology. Devices/ implants: none left in place. Impression and Plan irregular Z-line Gastropathy fundic gland polyps Status post biopsies from stomach and duodenum Recommendations: -Resume previous diet -Resume home medications -Await pathology results Normal [facility] Comment on above: Other Comment: Melissa calderón Attachment - attachment storage system not supported [id number] Can be viewed in source system Missing Attachment - attachment storage system not supported [id number] Can be viewed in source system Missing Attachment - attachment storage system not supported [id number] Can be viewed in source system Missing Attachment - attachment storage system not supported [id number] Can be viewed in source system Main OR PACU I Recordon 050 Main OR PACU I Record PACU Phase I Docum ent Type FT Summary Primary Physician: Jessee Nina MD Finalized Date/Time: 09/16/23 09:20:05 Pt. Name: VEE SARABIA Tawanda Moses/Sex: 1985 Female Med Rec #: [id number] Physician: Jessee Nina MD Financial #: [id number] Pt. Type: O Room/Bed: / Admit/Disch: 09/16/23 [...] By: Stacie Prescott RN 09/16/23 09:20 Normal [facility] Main OR Preoperative Recordo n 09-16-2023 Main OR Preoperative Record Holding Area Document Type FT Summary Primary Physician: Jessee Nina MD Finalized Date/Time: 09/16/23 07:37:45 Pt. Name: VEE SARABIA Tawanda Moses/Sex: 1985 Female Med Rec #: [id number] Physician: Jessee Nina MD Financial #: [id number] Pt. Type: O Room/Bed: / Admit/Disch: 09/16/23 [...] Adult Bill- staff from postop adult Supervision [facility] supervision available Case Cancelled in No Holding Area see comments below for reason Last Modified By: Vanessa Roy RN 09/16/23 07:35:16 General Comments: Caregiver, Bill present with patient from [facility]. /,RN Finalized By: Vanessa Roy RN Document Signatures Signed By: Vanessa Roy RN 09/16/23 07:37 Normal [facility] Monitor Recordon 09-16-2023 Monitor Record [id number] FF [facility] Monitor Record [id number]#1.00TI FF [facility] Consent for Procedure/Surger yon 09-11-2023 Consent for Procedure/Surgery [id number]#1.00TI FF [facility] Ambulatory Visit Summaryon 0 09-10-2023 Ambulatory Visit Summary VEE SARABIA :1985 Visit Date:09/10/2023 Ambulatory Visit Instructions Your Diagnosis Nausea and vomiting Weight loss Early satiety Chronic constipation Your Care Team Attending Physician - Kelle RAMIREZ, Jessee Chester Primary Care Physician - STEF ARGUETA DO This Is Your Medications List Contact [...] Appointments Thursday. 2023 8:00 AM EDT Where: [facility] Surgical Services You Need to Complete the Following NM Gastric Emptying Study, 09/10/23, Routine, Order for Future Visit, Transport Mode: Ambulatory, Reason: Nausea, Nausea and vomiting Invalid Interpretation Code Early satiety [facility] Gastroenterology Office/Clin ic Noteon 09-10-2023 Gastroenterology Office/Clinic Note Chief Complaint nausea/vomiting, constipation, weight loss HPI Staff Patient is a 38 year old female who was referred by [facility] for nausea and vomiting. Intermittent nausea [...] diphtheria/pertussis, acel/tetanus adult 08/14/2022 Recorded SARS-CoV-2 (COVID-19) [id number] 08/14/2022 Recorded influenza virus vaccine, inactivated 03/05/2022 Recorded SARS-CoV-2 (COVID-19) [id number].[id number] 03/05/2022 Recorded 2023-09-09: TPVALL influenza virus vaccine, [...] Recorded measles/mumps/rubella virus vaccine 11/15/1986 Recorded Normal [facility] Comment on above: Result Comment: Elec tronically Signed By: Kelle RAMIREZ, Jessee Chester\.br\Date and Time Signed: 09/10/23 09:40 EDT [facility] 09-09 [facility] [id number] F Normal [facility] CBC w/Indiceson 04-01-2023 Erythrocyte distribution width (RBC) [Ratio] 15.4 % High 10.9-14.2 [facility] Comment on above: Performed By: #### 2 248632, 4447020, 0769891, 2469650, 0610672, 2930135, 2129899, 98091340, 1456370, 4781529 ####[facility] [address] [place] [address] Hematocrit (Bld) [Volume fraction] 37.4 % Normal 34.0-46.0 [facility] Comment on above: Performed By: #### 2 009647, 9921390, 7915793, 3927414, 3978110, 7392174, 8806484, 83541694, 4956061, 0844063 ####[facility] [address] [place] [address] Hemoglobin (Bld) [Mass/Vol] 12.1 g/dL Normal 12.0-16.0 [facility] Comment on above: Performed By: #### 2 739394, 5152695, 4808894, 0890061, 3486878, 0256016, 9019910, 67360087, 4026984, 4836730 ####[facility] [address] [place] [address] MCH (RBC) [Entitic mass] 30.9 pg Normal 27.0-34.0 [facility] Comment on above: Performed By: #### 2 735495, 2196593, 6598186, 8485957, 8387205, 0618797, 5399193, 92702535, 1735642, 3792453 ####[address] [address] MCHC (RBC) [Mass/Vol] 32.4 g/dL Normal 31.4-36.0 [facility] Comment on above: Performed By: #### 2 299480, 2194556, 9344564, 8283147, 5853525, 4260739, 3306877, 08671497, 5984529, 1090943 ####[address] [place] [address] MCV (RBC) [Entitic vol] 95.6 fL Normal 80.0-100.0 F [facility] Comment on above: Performed By: #### 2 905538, 4027955, 6300407, 3915516, 3148163, 3928269, 0534624, 37021681, 0103702, 8449139 ####[address] [place] [address] Platelet mean volume (Bld) [Entitic vol] 12.2 fL High 6.4-10.8 [facility] Comment on above: Performed By: #### 2 847920, 7479420, 8736783, 3362736, 5034391, 9407472, 0253932, 51439218, 6992249, 5298605 ####[facility] [address] [place] [address] Platelets (Bld) [#/Vol] 309.0 E9/L Normal 150. 0-500. 0 [facility] Comment on above: Performed By: #### 2 776122, 4568027, 4160226, 8232582, 0182241, 1348708, 6414592, 85452771, 9462928, 6192969 ####[facility] [address] [place] [address] RBC (Bld) [#/Vol] 3.9 E12/L Low 4.3-5.9 [facility] Comment on above: Performed By: #### 2 465157, 3321196, 5363644, 7788820, 1665305, 7010717, 3751863, 28387043, 3897656, 6501081 ####[facility] [address] [place] [address] WBC corrected for nucl RBC Auto (Bld) [#/Vol] 6.5 E9/L Normal 4.0-11.0 [facility] Comment on above: Performed By: #### 2 540688, 0263559, 5642206, 3787713, 9947657, 0650426, 4026116, 34945222, 2210036, 3215216 ####[facility] [address] [place] [address] CHEMISTRYOrdered By: SYSTEM SYSTEM on 04-01-2023 Albumin [...] ratio] 16 mg/mg Normal 10 - 20 FT Remisol Valproate [Moles/Vol] 59 microgram/mL Normal 50 - 99 mcg/mL [facility] Remisol CMPon 04-01-2023 Albumin [Mass/Vol] 3.7 g/dL Normal 3.3-5.0 [facility] Comment on above: Performed By: #### 2 311952, 7123979, 4293521, 7906598, 8311977, 3387557, 8834066, 50079931, 3482282, 5517387 ####[facility] [address] [place] [address] Albumin/Globulin (S) [Mass conc ratio] 1.2 Normal 1.1-2.2 [facility] Comment on above: Performed By: #### 2 481634, 1594203, 0389516, 6755097, 8871832, 8180652, 6841282, 71473423, 0103323, 9193357 ####[facility] [address] [place] [address] ALP [Catalytic activity/Vol] 32 Int._Unit/L Normal 21-98 [facility] Comment on above: Performed By: #### 2 627588, 0389797, 9421802, 0589027, 3782551, 1446534, 2707690, 67624755, 1602096, 9154561 ####[facility] [address] [place] [address] ALT No additional P-5'-P [Catalytic activity/Vol] 24 Int._Unit/L Normal 6-46 [facility] Comment on above: Performed By: #### 2 249235, 1294503, 1112864, 5689503, 6361102, 9764800, 4631271, 46169378, 4802172, 7483716 ####[facility] [address] [place] [address] Anion gap [Moles/Vol] 13 mmol/L Normal 6-16 [facility] Comment on above: Performed By: #### 2 878543, 8045364, 6353402, 1843352, 4116486, 8875401, 0106143, 88658866, 8882643, 6528395 ####[facility] [address] [place] [address] AST [Catalytic activity/Vol] 28 Int._Unit/L Normal 5-43 [facility] Comment on above: Performed By: #### 2 034062, 1159190, 3174251, 3337269, 1665261, 6349807, 1928278, 72042315, 0645428, 4704912 ####[facility] [address] [place] [address] Bilirubin [Mass/Vol] 0.1 mg/dL Normal 0.0-1.1 [facility] Comment on above: Performed By: #### 2 193090, 3680594, 7428397, 1975402, 1987194, 0560362, 3316295, 86008056, 4883557, 3381104 ####[facility] [address] [place] [address] Calcium [Mass/Vol] 8.9 mg/dL Normal 8.9-11.1 [facility] Comment on above: Performed By: #### 2 543725, 3236312, 0522655, 4356223, 1525357, 9764427, 5638661, 18467114, 8066411, 9059349 ####[facility] [address] [place] [address] Chloride [Moles/Vol] 98 mmol/L Low 101-111 [facility] Comment on above: Performed By: #### 2 979389, 0306797, 3169835, 6529629, 3758615, 6573867, 2129498, 90841354, 2950468, 2329105 ####[facility] [address] [place] [address] CO2 [Moles/Vol] 24 mmol/L Normal 21-31 [facility] Comment on above: Performed By: #### 2 634569, 2312295, 5898577, 0560094, 7699798, 9712880, 5898516, 66150096, 1920246, 1564828 ####[facility] [address] [place] [address] Creatinine [Mass/Vol] 0.5 mg/dL Normal 0.5-1.3 [facility] Comment on above: Performed By: #### 2 843123, 8352497, 6895659, 9809141, 8091138, 6483749, 6761528, 71202029, 2764806, 4543973 ####[facility] [address] [place] [address] Globulin (S) [Mass/Vol] 3.2 g/dL Normal 1.4-4.0 F [facility] Comment on above: Performed By: #### 2 512337, 4344340, 5011125, 4402408, 2133716, 4260531, 7848196, 44688209, 5890065, 5075307 ####[facility] [address] [place] [address] Glucose [Mass/Vol] 86 mg/dL Normal 55-199 [facility] Comment on above: Result Comment: If t his glucose result represents a fasting glucose, interpretation should refer to the following reference range: 55-99 mg/dL Performed By: #### 2 852291, 5485227, 4622435, 0653502, 5429479, 7290039, 1308144, 08969042, 6488655, 6290950 ####[facility] [address] [place] [address] Potassium [Moles/Vol] 4.3 mmol/L Normal 3.5-5.3 [facility] Comment on above: Performed By: #### 2 742711, 4801103, 8981724, 5832482, 9544418, 7772121, 4031133, 92190067, 4561906, 2054741 ####[facility] [address] [place] [address] Protein [Mass/Vol] 6.9 g/dL Normal 6.0-7.8 [facility] Comment on above: Performed By: #### 2 153574, 1713898, 1173477, 1748509, 5185272, 6521382, 0345303, 29585707, 3981648, 2159964 ####[facility] [address] [place] [address] Sodium [Moles/Vol] 131 mmol/L Low 135-145 [facility] Comment on above: Performed By: #### 2 102356, 7025598, 8528158, 4833762, 5476120, 7581609, 2993110, 33734943, 7828217, 4318417 ####[facility] [address] [place] [address] Urea nitrogen [Mass/Vol] 8 mg/dL Normal 5-21 [facility] Comment on above: Performed By: #### 2 145266, 9024788, 6152724, 8834818, 3288024, 0571888, 2646308, 34143375, 7225969, 4482962 ####[facility] [address] [place] [address] Urea nitrogen/Creatinine [Mass ratio] 16 No Units Normal 10-20 [facility] Comment on above: Performed By: #### 2 933357, 6666000, 4645074, 8212994, 3241009, 8474633, 3220367, 97547617, 9506354, 1809890 ####[facility] [address] [place] [address] Carbamazepineon 04-01-2023 carBAMazepine [Mass/Vol] 4.4 microgram/mL Normal 4.0-1 2.0 [facility] Comment on above: Performed By: #### 2 435661, 5997655, 8405234, 6875194, 4172228, 9475073, 1121727, 20959539, 6638309, 1082547 ####[facility] [address] [place] [address] Ferritinon 04-01-2023 Ferritin [Mass/Vol] 39 ng/mL Normal 11-307 [facility] Comment on above: Result Comment: NORM ALS MEN <30 YRS 16-132 ng/mL MEN >30 YRS 8-338 ng/mL WOMEN (PREMEN) 6-104 ng/mL WOMEN (POSTMEN) 12-210 ng/mL Performed By: #### 2 605745, 0049320, 0777901, 7191862, 7016471, 5904844, 2589417, 02105211, 7319989, 2934592 ####[facility] [address] [place] [address] Free T4on 04-01-2023 Free T4 [Mass/Vol] 0.97 ng/dL Normal 0.58-1.64 [facility] Comment on above: Performed By: #### 2 163848, 5088387, 9432610, 9956101, 7072639, 7699634, 3046930, 25375425, 0358094, 0277886 ####[facility] [address] [place] [address] HEMATOLOGYOrdered By: Graciela Carey on 04-01-2023 Erythrocyte [...] 04-01-2023 Iron [Mass/Vol] 130 microgram/dL Normal 35-153 [facility] Comment on above: Performed By: #### 2 152399, 0824639, 5262145, 4871648, 5600884, 5071908, 5318362, 01917653, 5126389, 3381517 ####[facility] [address] [place] [address] Physician Orderon 04-01-2023 Physician Order [id number] FF Normal [facility] TSHon 04-01-2023 TSH Qn 0.96 m[IU]/L Normal 0.34-5.60 [facility] Comment on above: Performed By: #### 2 673779, 0430044, 8725089, 7544269, 6791858, 7818496, 2207713, 82618704, 1634604, 5575790 ####[facility] [address] [place] [address] Valproic Acidon 04-01-2023 Valproate [Moles/Vol] 59 microgram/mL Normal 50-99 [facility] Comment on above: Performed By: #### 2 237116, 1795655, 9916247, 6064182, 6449802, 9511153, 1828959, 18697959, 9187510, 5232195 ####[facility] [address] [place] [address] Vit B12on 04-01-2023 Cobalamin (Vitamin B12) [Mass/Vol] 305 pg/mL Normal 50-1500 [facility] Comment on above: Performed By: #### 2 983940, 7823242, 9118486, 3235140, 3609773, 4024764, 6561226, 10267425, 5159217, 8406055 ####[facility] [address] [place] [address] eGFRon 04-01-2023 GFR/1.73 sq M.predicted among non-blacks MDRD (S/P/Bld) [Vol rate/Area] 124 mL/min/1.73 m2 Normal >=59 [facility] Comment on above: Order Comment: Order added by Discern Expert. Result Comment: Director Dietetics Department tamara kidney disease could be indicated at eGFR's of less than 60 mL/min/1.73m2. Kidney failure is indicated at less than 15 mL/min/1.73m2. Performed By: #### 2 778763, 7540758, 0681208, 6376000, 6579602, 1199488, 8879160, 88312234, 5070144, 6994783 ####[facility] [address] [place] [address] CHEMISTRYOrdered By: SYSTEM SYSTEM on 01-14-2023 Valproate [Moles/Vol] 82 microgram/mL Normal 50 - 99 mcg/mL [facility] Remisol Physician Orderon 01-14-2023 Physician Order [id number]: 127 Normal [facility] Valproic Acidon 01-14-2023 Valproate [Moles/Vol] 82 microgram/mL Normal 50-99 [facility] Comment on above: Performed By: #### 2 333054 ####[facility] [address] [place] [address] XR DEXA BONE DENSITYon 10-01 XR DEXA [...] SANDY RAMIREZ Date: 2022-10-01 11:02 Normal [facility] CBC AUTO DIFFon 09-16-2022 BASO # 0.0 103/ul Normal 0.0-0.1 [facility] Comment on above: Performed By: #### C BC #### [facility] [address] [place] [address] Dr. Chong Agarwal Basophils/100 WBC (Bld) 0.3 % Normal 0.2-2.0 [facility] Comment on above: Performed By: #### C BC #### [facility] [address] [address] [address] Chong Agarwal EO # 0.0 103/ul Normal 0.0-0.7 [facility] Comment on above: Performed By: #### C BC #### [facility] [address] [place] [address] Dr. Chong Agarwal Eosinophils/100 WBC (Bld) 0.4 % Critically low 0.9-7.0 [facility] Comment on above: Performed By: #### C BC #### [facility] [address] [place] [address] Dr. Chong Agarwal Erythrocyte distribution width (RBC) [Ratio] 14.6 % Normal 11.0-15.0 [facility] Comment on above: Performed By: #### C BC #### [facility] [address] [place] [address] Dr. Chong Agarwal Hematocrit (Bld) [Volume fraction] 37.6 % Normal 36.0-48.0 [facility] Comment on above: Performed By: #### C BC #### [facility] [address] [place] [address] Dr. Chong Agarwal Hemoglobin (Bld) [Mass/Vol] 12.2 g/dL Normal 12.0-16.0 [facility] Comment on above: Performed By: #### C BC #### [facility] [address] [place] [address] Dr. Chong Agarwal IG # 0.02 10e3/ul Normal 0.00-0.03 [facility] Comment on above: Performed By: #### C BC #### [facility] [address] [place] [address] Dr. Chong Agarwal IG % 0.3 % Normal 0.0-0.5 [facility] Comment on above: Performed By: #### C BC #### [facility] [address] [place] [address] Dr. Chong Agarwal LYMPH # 2.4 103/ul Normal 1.2-3.8 [facility] Comment on above: Performed By: #### C BC #### [facility] [address] [place] [address] Dr. Chong Agarwal Lymphocytes/100 WBC (Bld) 34.6 % Normal 20.5-60.0 [facility] Comment on above: Performed By: #### C BC #### [facility] [address] [place] [address] Dr. Chong Agarwal MANUAL DIFF REQ NO Normal [facility] Comment on above: Performed By: #### C BC #### [facility] [address] [address] [address] Chong Agarwal MCH (RBC) [Entitic mass] 31.4 pg Normal 26.7-34.0 [facility] Comment on above: Performed By: #### C BC #### [facility] [address] [place] [address] Dr. Chong Agarwal MCHC (RBC) [Mass/Vol] 32.4 g/dL Normal 29.9-35.2 [facility] Comment on above: Performed By: #### C BC #### [facility] [address] [place] [address] Dr. Chong Agarwal MCV (RBC) [Entitic vol] 96.7 fL Normal 81.0-99.0 [facility] Comment on above: Performed By: #### C BC #### [facility] [address] [place] [address] Dr. Chong Agarwal MONO # 0.7 103/ul Normal 0.3-0.8 [facility] Comment on above: Performed By: #### C BC #### [facility] [address] [place] [address] Dr. Chong Agarwal Monocytes/100 WBC (Bld) 10.2 % Normal 1.7-12.0 [facility] Comment on above: Performed By: #### C BC #### [facility] [address] [place] [address] Dr. Chong Agarwal NEUT # 3.8 103/ul Normal 1.4-6.5 [facility] Comment on above: Performed By: #### C BC #### [facility] [address] [place] [address] Dr. Chong Agarwal Neutrophils/100 WBC (Bld) 54.2 % Normal 43.0-75.0 [facility] Comment on above: Performed By: #### C BC #### [facility] [address] [place] [address] Dr. Chong Agarwal Platelet mean volume (Bld) [Entitic vol] 11.0 fL Normal 9.5-13.5 [facility] Comment on above: Performed By: #### C BC #### [facility] [address] [address] [address] Chong Agarwal PLT 290 103/ul Normal 150-450 [facility] Comment on above: Performed By: #### C BC #### [facility] [address] [address] [address] Chong Agarwal RBC 3.89 106/ul Critically low 4.20-5.40 [facility] Comment on above: Performed By: #### C BC #### [facility] [address] [address] [address] Chong Agarwal WBC 7.0 103/ul Normal 4.0-11.0 [facility] Comment on above: Performed By: #### C BC #### [facility] [address] [place] [address] Dr. Chong Agarwal FREE T3on 09-16-2022 FREE T3 2.11 pg/mlL Critically low 2.18-3.98 [facility] Comment on above: Performed By: #### T SH, CMP, LIPID, FT3 #### [facility] [address] [place] [address] Dr. Chong Agarwal FREE T4on 09-16-2022 Free T4 [Mass/Vol] 1.25 ng/dL Normal 0.76-1.46 [facility] Comment on above: Performed By: #### F T4, VITB12 #### [facility] [address] [place] [address] Dr. Chong Agarwal LIPID PROFILEon 09-16-2022 CHOL-HDL RATIO NORM SEE BELOW Normal [facility] Comment on above: Result Comment: 3.3 - 4.4 LOW RISK 4.4 - 7.1 AVERAGE RISK 7.1 - 11.0 MODERATE RISK >11.0 HIGH RISK Performed By: #### T SH, CMP, LIPID, FT3 #### [facility] [address] [place] [address] Dr. Chong Agarwal Cholesterol [Mass/Vol] 144 mg/dL Normal <=200 [facility] Comment on above: Performed By: #### T SH, CMP, LIPID, FT3 #### [facility] [address] [address] [address] Chong Agarwal Cholesterol in HDL [Mass/Vol] 49 mg/dL Normal 40-60 [facility] Comment on above: Performed By: #### T SH, CMP, LIPID, FT3 #### [facility] [address] [address] [address] Chong Agarwal Cholesterol in LDL [Mass/Vol] 78.0 mg/dL Normal [facility] Comment on above: Performed By: #### T SH, CMP, LIPID, FT3 #### [facility] [address] [address] [address] Chong Agarwal Cholesterol.total/Choles terol in HDL [Mass ratio] 2.9 {ratio} Normal [facility] Comment on above: Performed By: #### T SH, CMP, LIPID, FT3 #### [facility] [address] [place] [address] Dr. Chong Agarwal HDL NORMAL > or = 60 mg/dl - LO W CARDIOVASCULAR RISK <40 mg/dl - HIGH CARDIOVASCULAR RISK Normal [facility] Comment on above: Performed By: #### T SH, CMP, LIPID, FT3 #### [facility] [address] [address] [address] Chong Agarwal LDL CALC NORMAL SEE BELOW Normal [facility] Comment on above: Result Comment: <100 mg/dl OPTIMAL 100 - 129 mg/dl NEAR OR ABOVE OPTIMAL 130 - 159 mg/dl BORDERLINE HIGH 160 - 189 mg/dl HIGH >190 mg/dl VERY HIGH Performed By: #### T SH, CMP, LIPID, FT3 #### [facility] [address] [place] [address] Dr. Chong Agarwal Triglyceride [Mass/Vol] 85 mg/dL Normal <=150 [facility] Comment on above: Performed By: #### T SH, CMP, LIPID, FT3 #### [facility] [address] [place] [address] Dr. Chong Agarwal VLDL CALC 17.0 mg/dL Normal [facility] Comment on above: Performed By: #### T SH, CMP, LIPID, FT3 #### [facility] [address] [place], [place] [address] Dr. Chong Agarwal PROF 14(COMP METB)on 023 Albumin [Mass/Vol] 3.5 g/dL Normal 3.4-5.0 [facility] Comment on above: Performed By: #### T SH, CMP, LIPID, FT3 #### [facility] [address] [place] [address] Dr. Chong Agarwal Albumin/Globulin [Mass ratio] 0.9 {ratio} Normal [facility] Comment on above: Performed By: #### T SH, CMP, LIPID, FT3 #### [facility] [address] [place] [address] Dr. Chong Agarwal ALP [Catalytic activity/Vol] 31 U/L Critically low 46-116 [facility] Comment on above: Performed By: #### T SH, CMP, LIPID, FT3 #### [facility] [address] [place] [address] Dr. Chong Agarwal ALT [Catalytic activity/Vol] 34 U/L Normal 14-59 [facility] Comment on above: Performed By: #### T SH, CMP, LIPID, FT3 #### [facility] [address] [place] [address] Dr. Chong Agarwal Anion gap [Moles/Vol] 8.3 mmol/L Normal [facility] Comment on above: Performed By: #### T SH, CMP, LIPID, FT3 #### [facility] [address] [place] [address] Dr. Chong Agarwal AST [Catalytic activity/Vol] 22 U/L Normal 15-37 [facility] Comment on above: Performed By: #### T SH, CMP, LIPID, FT3 #### [facility] [address] [place] [address] Dr. Chong Agarwal Bilirubin [Mass/Vol] 0.2 mg/dL Normal 0.2-1.0 [facility] Comment on above: Performed By: #### T SH, CMP, LIPID, FT3 #### [facility] [address] [place] [address] Dr. Chong Agarwal Calcium [Mass/Vol] 9.0 mg/dL Normal 8.5-10.1 [facility] Comment on above: Performed By: #### T SH, CMP, LIPID, FT3 #### [facility] [address] [address] [address] Chong Agarwal Chloride [Moles/Vol] 101 mmol/L Normal 98-107 [facility] Comment on above: Performed By: #### T SH, CMP, LIPID, FT3 #### [facility] [address] [address] [address] hCong Agarwal CO2 [Moles/Vol] 30.0 mmol/L Normal 21.0-32.0 [facility] Comment on above: Performed By: #### T SH, CMP, LIPID, FT3 #### [facility] [address] [place] [address] Dr. Chong Agarwal Creatinine [Mass/Vol] 0.54 mg/dL Critically low 0.55-1.02 [facility] Comment on above: Performed By: #### T SH, CMP, LIPID, FT3 #### [facility] [address] [place] [address] Dr. Chong Agarwal EGFR-AF COMORAN >60 Normal >=60 [facility] Comment on above: Performed By: #### T SH, CMP, LIPID, FT3 #### [facility] [facility] [address] [place] [address] Dr. Chong Agarwal EGFR-NON AF COMORAN >60 Normal >=60 [facility] Comment on above: Performed By: #### T SH, CMP, LIPID, FT3 #### [facility] [address] [place] [address] Dr. Chong Agarwal Globulin (S) [Mass/Vol] 3.9 g/dL Normal [facility] Comment on above: Performed By: #### T SH, CMP, LIPID, FT3 #### [facility] [address] [place] [address] Dr. Chong Agarwal Glucose [Mass/Vol] 95 mg/dL Normal 74-106 [facility] Comment on above: Performed By: #### T SH, CMP, LIPID, FT3 #### [facility] [address] [place] [address] Dr. Chong Agarwal Potassium [Moles/Vol] 4.3 mmol/L Normal 3.5-5.1 [facility] Comment on above: Performed By: #### T SH, CMP, LIPID, FT3 #### [facility] [address] [place] [address] Dr. Chong Agarwal Protein [Mass/Vol] 7.4 g/dL Normal 6.4-8.2 [facility] Comment on above: Performed By: #### T SH, CMP, LIPID, FT3 #### [facility] [address] [place] [address] Dr. Chong Agarwal Sodium [Moles/Vol] 135 mmol/L Critically low 136-145 [facility] Comment on above: Performed By: #### T SH, CMP, LIPID, FT3 #### [facility] [address] [place] [address] Dr. Chong Agarwal Urea nitrogen [Mass/Vol] 12.0 mg/dL Normal 7.0-18.0 [facility] Comment on above: Performed By: #### T SH, CMP, LIPID, FT3 #### [facility] [address] [place] [address] Dr. Chong Agarwal Urea nitrogen/Creatinine [Mass ratio] 22.2 mg/mg Normal [facility] Comment on above: Performed By: #### T SH, CMP, LIPID, FT3 #### [facility] [address] [place] [address] Dr. Chong Agarwal TSHon 09-16-2022 TSH 0.986 uIU/mL Normal 0.358-3.74 0 [facility] Comment on above: Performed By: #### T SH, CMP, LIPID, FT3 #### [facility] [address] [place] [address] Dr. Chong Agarwal VITAMIN B12on 09-16-2022 Cobalamin (Vitamin B12) [Mass/Vol] 581.0 pg/mL Normal 193.0-986. 0 [facility] Comment on above: Performed By: #### F T4, VITB12 #### [facility] [address] [place], [place] [id number] Dr. Chong Agarwal CULTURE WOUNDon 08-22-2022 CULTURE [...] Trimethoprim/Sulfamethox azole <=10 S F Normal [facility] Comment on above: Performed By: #### W OUNDCX #### [facility] [address] [place], [place] [id number] Dr. Chong Agarwal DEPAKENE/ VALPROIC ACIDon DEPAKENE 92.4 ug/ml Normal 50.0-100.0 [facility] Comment on above: Performed By: #### V ALP #### [facility] [address] [place], [place] [id number] Dr. Chong Agarwal Vital Signs Date Time Vital Sign Value Performing Clinician Facility 09-29-2024 10:46-0400 Body height 147.3 cm Amy Gillmor STONER OUT Work Phone: [facility] 09-29-2024 10:46-0400 Body mass index (BMI) [Ratio] 30.31 kg/m2 Amy De Leonmor STONER OUT Work Phone: [facility] 09-29-2024 10:46-0400 Body weight 65.77 kg Amy De Leonmor STONER OUT Work Phone: [facility] 09-29-2024 10:46-0400 Diastolic blood pressure 78 mm[Hg] Amy De Leonmor STONER OUT Work Phone: [facility] 09-29-2024 10:46-0400 Systolic blood pressure 122 mm[Hg] Amy De Leonmor STONER OUT Work Phone: [facility] 04-07-2024 09:53-0500 Body height 152.4 cm Amy De Leonmor STONER OUT Work Phone: [facility] 04-07-2024 09:53-0500 Body mass index (BMI) [Ratio] 33.98 kg/m2 Amy De Leonmor STONER OUT Work Phone: [facility] 04-07-2024 09:53-0500 Body weight 78.93 kg Amy De Leonmor STONER OUT Work Phone: [facility] 01-08-2024 16:00-0400 Diastolic blood pressure 26 mm[Hg] Stacie Torres DMD Work Phone: [facility] 01-08-2024 16:00-0400 Heart rate 84 /min Stacie Jaramilloo DMD Work Phone: [facility] 01-08-2024 16:00-0400 Respiratory rate 22 /min Stacie Jaramilloo DMD Work Phone: [facility] 01-08-2024 16:00-0400 SaO2% (BldA) [Mass fraction] 96 % Stacie Jaramilloo DMD Work Phone: [facility] 01-08-2024 16:00-0400 Systolic blood pressure 94 mm[Hg] Stacie Jaramilloo DMD [facility] 01-08-2024 15:56-0400 Body temperature 98.1 [degF] Stacie Torres DMD [facility] 01-08-2024 11:04-0400 Body height 147.3 cm Stacie Torres DMD [facility] 01-08-2024 11:04-0400 Body mass index (BMI) [Ratio] 31.98 kg/m2 Stacie Torres DMD [facility] 01-08-2024 11:04-0400 Body weight 69.4 kg Stacie Torres DMD Work Phone: [facility] 01-05-2024 10:22-0400 Body height 152.4 cm Amy Gillmor STONER OUT Work Phone: [facility] 01-05-2024 10:22-0400 Body mass index (BMI) [Ratio] 33.98 kg/m2 Amy Haleymor STONER OUT Work Phone: [facility] 01-05-2024 10:22-0400 Body weight 78.93 kg Amy Haleymor STONER OUT Work Phone: [facility] 01-05-2024 10:22-0400 Diastolic blood pressure 80 mm[Hg] Amy Gillmor STONER OUT Work Phone: [facility] 01-05-2024 10:22-0400 Systolic blood pressure 118 mm[Hg] Amy Gillmor STONER OUT Work Phone: [facility] 12-28-2023 20:36-0400 Heart rate 75 /min Víctor Goldberg 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 VOICE Work Phone: [facility] 12-25-2023 10:34-0400 Body height 147.3 cm Víctor Goldberg 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 VOICE Work Phone: [facility] 12-25-2023 10:34-0400 Body mass index (BMI) [Ratio] 31.98 kg/m2 Víctor Goldberg 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 VOICE Work Phone: [employer] 12-25-2023 10:34-0400 Body temperature 98.91 [degF] Víctor Goldberg APRN-MANAGER VOICE Work Phone: [employer] 12-25-2023 10:34-0400 Body weight 69.4 kg Víctor Goldberg 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 VOICE Work Phone: [employer] 12-25-2023 10:34-0400 Diastolic blood pressure 61 mm[Hg] Víctor Goldberg 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 VOICE Work Phone: [employer] 12-25-2023 10:34-0400 Heart rate 86 /min Víctor Goldberg 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 VOICE Work Phone: [employer] 12-25-2023 10:34-0400 Respiratory rate 16 /min Víctor Goldberg 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 VOICE Work Phone: [employer] 12-25-2023 10:34-0400 SaO2% (BldA) [Mass fraction] 99 % Víctor Goldberg 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 VOICE Work Phone: [employer] 12-25-2023 10:34-0400 Systolic blood pressure 94 mm[Hg] Víctor Goldberg 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 VOICE Work Phone: [employer] 09-16-2023 09:00-0400 Diastolic blood pressure 61 mm[Hg] Mohamad Mouchli [facility] 09-16-2023 09:00-0400 Heart rate 70 /min Mohamad Mouchli [facility] 09-16-2023 09:00-0400 Mean blood pressure 74 mm[Hg] Mohamad Mouchli [facility] 09-16-2023 09:00-0400 Systolic blood pressure 99 mm[Hg] Mohamad Mouchli [facility] 09-16-2023 08:50-0400 Blood Pressure Location Mohamad Mouchli [facility] 09-16-2023 08:50-0400 Diastolic blood pressure 68 mm[Hg] Mohamad Mouchli [facility] 09-16-2023 08:50-0400 Heart rate 72 /min Mohamad Mouchli [facility] 09-16-2023 08:50-0400 Mean blood pressure 79 mm[Hg] Mohamad Mouchli [facility] 09-16-2023 08:50-0400 Respiratory rate 12 /min Mohamad Mouchli [facility] 09-16-2023 08:50-0400 SaO2% (BldA) [Mass fraction] 96 % Mohamad Mouchli [facility] 09-16-2023 08:50-0400 Systolic blood pressure 100 mm[Hg] Mohamad Mouchli [facility] 09-16-2023 08:45-0400 Diastolic blood pressure 83 mm[Hg] Mohamad Mouchli [facility] 09-16-2023 08:45-0400 Heart rate 86 /min Mohamad Mouchli [facility] 09-16-2023 08:45-0400 Mean blood pressure 88 mm[Hg] Mohamad Mouchli [facility] 09-16-2023 08:45-0400 Respiratory rate 17 /min Mohamad Mouchli [facility] 09-16-2023 08:45-0400 SaO2% (BldA) [Mass fraction] 97 % Mohamad Mouchli [facility] 09-16-2023 08:45-0400 Systolic blood pressure 98 mm[Hg] Mohamad Mouchli [facility] 09-16-2023 08:35-0400 Body temperature 98.06 [degF] Mohamad Mouchli [facility] 09-16-2023 07:39-0400 Body temperature 98.06 [degF] Mohamad Mouchli [facility] 09-10-2023 09:10-0400 Blood Pressure Location Mohamad Mouchli [facility] 09-10-2023 09:10-0400 Diastolic blood pressure 67 mm[Hg] Mohamad Mouchli [facility] [place] [facility] 09-10-2023 09:10-0400 Heart rate 91 /min Mohamad Mouchli [facility] 09-10-2023 09:10-0400 Respiratory rate 16 /min Mohamad Mouchli [facility] [place] [facility] 09-10-2023 09:10-0400 Systolic blood pressure 113 mm[Hg] Mohamad Mouchli [facility] [place] [facility] Encounters Encounter Date Encounter Type Care Provider Facility Start: 09-29-2024 End: 09-29-2024 Bamboo flowsheet Amy Farooq STONER OUT Work Phone: [facility] Start: 09-29-2024 End: 09-29-2024 Bamboo flowsheet Amy Farooq [employer]ONER OUT Work Phone: [facility] Start: 09-29-2024 End: 09-29-2024 Office outpatient visit 25 minutes Amy Farooq [employer]ONER OUT Work Phone: [facility] Comment on above: Seizure disorder (CM S/HCC) (Primary Dx); Cerebral palsy, unspecified type (CMS/HCC); Mental impairment (CMS/HCC); Other conduct disorders Start: 09-29-2024 End: 09-29-2024 ambulatory AMY GILLMOR Not Available Start: 07-13-2024 End: 07-25-2024 ambulatory UNKNOWN PROVIDER Facility:[facility] Start: 04-07-2024 End: 04-07-2024 Bamboo alheet Amy Farooq STONER OUT Work Phone: [facility] Start: 04-07-2024 End: 04-07-2024 Bamboo flowsheet Amy De Leonmor STONER OUT Work Phone: [facility] Start: 04-07-2024 End: 04-07-2024 ambulatory AMY HALEYMOR Not Available Start: 04-07-2024 End: 04-07-2024 Office outpatient visit 25 minutes Amy Farooq STONER OUT Work Phone: [facility] Comment on above: Seizure disorder (CM S/HCC) (Primary Dx); Cerebral palsy, unspecified type (CMS/HCC); Mental impairment (CMS/HCC) Start: 02-03-2024 End: 02-03-2024 Refill Chandler Marin DDS Work Phone: [facility] Comment on above: Refill Start: 01-11-2024 End: 01-11-2024 Telephone encounter Stacie Torres DMD Work Phone: [facility] Comment on above: Referral needs place d for OS Start: 01-08-2024 End: 01-08-2024 Patient encounter procedure Stacie Torres DMD Work Phone: [facility] Comment on above: Arrived Start: 01-08-2024 End: 01-08-2024 ambulatory UNKNOWN PROVIDER Facility:[facility] Start: 01-08-2024 End: 01-08-2024 Subsequent hospital visit by physician Stacie Torres DMD Work Phone: [facility] Start: 01-08-2024 ambulatory UNKNOWN PROVIDER Facili ty:[facility] Start: 01-06-2024 End: 01-06-2024 Telephone encounter Bronwyn Pradhan RN [facility] Pre-Admission Testing Comment on above: Pre-surgical Evaluat ion (DD adult dental restorations 01/07 under GA at [facility]. PAT completed - consents obtained. MARY RN spoke to Cassidy, confirmed NPO except water only until 0900 (Cassidy stated pt does not like and will not drink water), [facility] address, and 1100 arrival time/) Start: 01-05-2024 End: 01-05-2024 Bamboo flowsheet Amy Farooq STONER OUT Work Phone: [facility] Start: 01-05-2024 End: 01-05-2024 Bamboo flowsheet Amy Farooq STONER OUT Work Phone: [facility] Start: 01-05-2024 End: 01-05-2024 Office outpatient visit 25 minutes Amy Farooq STONER OUT Work Phone: [facility] Comment on above: Seizure disorder (CM S/HCC) (Primary Dx); Mental impairment (CMS/HCC); Other conduct disorders (CMS/HCC); Cerebral palsy, unspecified type (CMS/HCC); Weight loss; Anorexia; Other bipolar disorder (CMS/HCC) Start: 01-05-2024 End: 01-05-2024 ambulatory AMY FAROOQ Not Available Start: 12-28-2023 End: 12-28-2023 Telephone encounter Susie Dumont RN [facility] Pre-Admission Testing Start: 12-25-2023 End: 12-28-2023 Patient encounter procedure Víctor Goldberg 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 VOICE Work Phone: [facility] Comment on above: Preop testing (Prima ry Dx); Body mass index (BMI) 31.0-31.9, adult Preop testing (Prima ry Dx); Body mass index (BMI) 31.0-31.9, adult; Abnormal electrocardiogram (ECG) (EKG); Abnormal electrocardiogram (ECG) (EKG) Start: 12-25-2023 End: 12-28-2023 Patient encounter status Víctor Goldberg 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 VOICE Work Phone: [facility] Work Phone: Start: 12-25-2023 End: 12-28-2023 ambulatory VÍCTOR GOLDBERG Facility:[facility] Start: 12-25-2023 Encounter for other preprocedural examination [facility] Start: 09-23-2023 End: 09-24-2023 ambulatory Jessee Nina Facility:[facility] Start: 09-23-2023 End: 09-23-2023 Patient encounter procedure Jessee Nina [facility] Start: 09-16-2023 End: 09-17-2023 ambulatory Jessee Nina Facility:[facility] Start: 09-16-2023 End: 09-16-2023 Patient encounter procedure Jessee Nina [facility] Start: 09-10-2023 End: 09-11-2023 ambulatory Jessee Nina Facility:[facility] Start: 09-10-2023 End: 09-10-2023 Patient encounter procedure Jessee Nina [facility] Start: 09-09-2023 ambulatory Jessee Nina Facilit y:[facility] Start: 04-01-2023 End: 04-02-2023 ambulatory STEF ARGUETA Facility:[facility] Start: 04-01-2023 End: 04-01-2023 Lab Drop off STEF ARGUETA [facility] Start: 01-14-2023 End: 01-15-2023 ambulatory STEF ARGUETA Facility:[facility] Start: 01-14-2023 End: 01-14-2023 Lab Drop off STEF ARGUETA [facility] Start: 10-01-[address] STEF ARGUETA Fac ility:[facility] Start: 09-16-2022 End: 09-17-[address] STEF ARGUETA Facility:[facility] Start: 08-19-2022 End: 08-19-[address] STEF ARGUETA Facility:[facility] Start: 07-22-2022 End: 07-25-2022 Patient encounter procedure Kary Dahlrial DDS Work Phone: [facility] Start: 06-08-2022 Letter encounter Rm Goldman DDS Work Phone: [facility] Start: 04-29-2022 End: 04-30-[address] STEF ARGUETA Facility:[facility] Procedures Date Procedure Procedure Detail Performing Clinician Start: 01-08-2024 Gonadotropin chorionic quantitative Kim lorie Shin MD Work Phone: Start: 12-25-2023 Blood count complete automated Víctor brock 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 PHYSIOTHERAPIST-Social 2 Step Work Phone: Start: 12-25-2023 Ecg routine ecg w/least 12 lds trcg only w/o i&r Víctor Goldberg 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 VOICE Work Phone: Start: 09-16-2023 Esophagogastroduodenoscopy Jessee armstrong Plan of Treatment Date Care Activity Detail Author Start: 2035 Shingles (RZV) Vacci ne (1 of 2) Shingles (RZV) Vaccine (1 of 2) [facility] Start: 08-14-2032 Tetanus vaccination Tetanus (T d or Tdap) Booster [facility] Start: 09-29-2024 End: 09-29-2024 [facility] Comment on above: Arrived Start: 04-07-2024 End: 04-07-2024 Patient encounter procedure 04/07/2024 9:40 AM EST Office Visit [facility] [address] [place] [phone] Amy Farooq, ANGELIC [address] [place] [address] [facility] Start: 02-16-2024 Influenza vaccination Influenza Vacc ine (#1) [facility] Start: 01-17-2024 COVID-19 Vaccine ( season) COVID-19 Vaccine ( season) [facility] Start: 01-17-2024 Influenza vaccination Influenza Vacc ine (#1) [facility] Start: 01-08-2024 End: 01-08-2024 DENTAL RESTORATIONS DENTAL RESTORATIONS Routine scheduled Caries 01/08/2024 2:10 PM EDT [facility] Start: 01-08-2024 End: 01-08-2024 Admission to same day surgery center 01/08/2024 11:28 AM EDT - 01/08/2024 1:23 PM EDT Surgery [facility] [address] [place] [address] Stacie Torres, DRISS [address] [place] [id number] DENTAL RESTORATIONS [facility] Comment on above: DENTAL RESTORATIONS Start: 01-08-2024 End: 01-08-2024 DENTAL RESTORATIONS DENTAL RESTORATIONS Routine scheduled Caries 01/08/2024 11:28 AM EDT [facility] Start: 01-08-2024 Subsequent hospital visit by physician 01/08/2024 11:28 AM EDT Hospital Encounter [facility] [address] [place] [address] Stacie Torres, DRISS [address] [place], [place] [id number] [facility] Start: 01-08-2024 End: 01-08-2024 Admission to same day surgery center [facility] Comment on above: DENTAL RESTORATIONS Start: 01-08-2024 End: 01-08-2024 DENTAL RESTORATIONS [facility] Start: 01-08-2024 Subsequent hospital visit by physician [facility] Start: 01-08-2024 End: 01-08-2024 Patient encounter procedure [facility] Start: 01-05-2024 End: 01-04-2025 Levetiracetam level Levetiracetam level Lab Routine Seizure disorder (CMS/HCC) Expected: 01/05/2024 (Approximate), Expires: 01/04/2025 [facility] Comment on above: Expected: 01/05/2024 (Approximate), Expires: 01/04/2025 Start: 01-05-2024 End: 01-04-2025 Valproic acid level, total Valproic acid level, total Lab Routine Seizure disorder (CMS/HCC) Expected: 01/05/2024 (Approximate), Expires: 01/04/2025 [facility] Work Phone: Comment on above: Expected: 01/05/2024 (Approximate), Expires: 01/04/2025 Start: 01-16-2023 COVID-19 Vaccine ( season) COVID-19 Vaccine ( season) [facility] Start: 08-31-2022 Tetanus vaccination Tetanus (T d or Tdap) Booster [facility] Start: 07-22-2022 End: 07-22-2022 Patient encounter procedure 07/22/2022 Procedure Visit Dentistry Diana Horan, [facility] [address] [address] [facility] Start: 02-15-2022 Influenza vaccination Influenza Vacc ine (#1) [facility] Start: 2015 Screening for malign ant neoplasm of cervix [facility] Start: 2012 HPV Vaccine (optiona l start 27-45 years) HPV Vaccine (optional start 27-45 years) [facility] Start: 2006 Screening for malign ant neoplasm of cervix Pap Smear [facility] Start: 2004 Hepatitis A (HAV) Vaccine (optional start 19+ years) Hepatitis A (HAV) Vaccine (optional start 19+ years) [facility] Start: 2004 Hepatitis B vaccination Hepati tis B (HBV) Vaccine (1 of 3 - 19+ 3-dose series) [facility] Start: 2003 Hepatitis C screening Hepatitis C An tibody [facility] Start: 2000 HIV screening HIV Test [facility] Start: 1985 Screening for malign ant neoplasm of breast [facility] Ecg routine ecg w/le ast 12 lds trcg only w/o i&r EKG 12 LEAD - PERFORM MUSE Routine Preop testing Ordered: 12/25/2023 [facility] Work Phone: Comment on above: Ordered: 12/25/2023 End: 01-08-2024 Urine test visual color cmprsn meths URINE HCG-IN OFFICE Lab Routine One time for 1 Occurrences starting 01/08/2024 until 01/08/2024 [facility] Work Phone: Comment on above: One time for 1 Occur rences starting 01/08/2024 until 01/08/2024 Immunizations Immunization Date Immunization Notes Care Provider [facility] 03-03-2024 influenza virus vacc ine, unspecified formulation Amy Farooq NP Work Phone: [facility] 03-04-2023 influenza virus vacc ine, unspecified formulation Jessee Nina [facility] 03-04-2023 SARS-COV-2 (COVID-19 ) vaccine, mRNA, spike protein, LNP, PF, adam-sucrose, 30 mcg/0.3 mL Amy Farooq STONER OUT Work Phone: [facility] 08-14-2022 SARS-CoV-2 (COVID-19 ) [id number] eJssee Nina [facility] 08-14-2022 tetanus toxoid, redu penelope diphtheria toxoid, and acellular pertussis vaccine, adsorbed Jessee Nina [facility] 03-05-2022 influenza virus vacc ine, unspecified formulation Jessee Nina [facility] 03-05-2022 SARS-CoV-2 (COVID-19 ) [id number] Jessee Nina [facility] Comment on above: Result Comment: 2023: TPVALL 03-13-2021 influenza, injectabl e, quadrivalent, preservative free Rm Goldman APROOFEDS Work [facility] 03-13-2021 SARS-CoV-2 (COVID-19 ) mRNA BNT-162b2 vax Jessee Nina [facility] Comment on above: Result Comment: 2023: TPV3 03-13-2021 influenza virus vacc ine, unspecified formulation Rm Goldman APROOFEDS Work Phone: [facility] 06-19-2020 Pfizer (12+ yrs) SARS-COV-2 (COVID-19) vaccine, mRNA, spike protein, LNP, pres. free, 30 mcg/0.3mL dose ([id number]) Rm Goldman APROOFEDS Work Phone: [facility] Comment on above: Result Comment: 2023: TPVAL 05-29-2020 Pfizer (12+ yrs) SARS-COV-2 (COVID-19) vaccine, mRNA, spike protein, LNP, pres. free, 30 mcg/0.3mL dose ([id number]) Rm Goldman APROOFEDS Work Phone: [facility] Comment on above: Result Comment: 2023: TPVAL 02-22-2020 influenza virus vacc ine, unspecified formulation Jessee Nina [facility] 02-22-2020 influenza, injectabl e, quadrivalent, preservative free Rm Goldman APROOFEDS Work [facility] 03-11-2019 influenza virus vacc ine, unspecified formulation Mohamad Mouchli [facility] 03-11-2019 influenza, injectabl e, quadrivalent, preservative free Rm Susi DDS Work Phone: [facility] 02-24-2018 influenza virus vacc ine, unspecified formulation Mohamad Mouchli [facility] 02-24-2018 influenza, injectabl e, quadrivalent, preservative free Rm Susi DDS Work Phone: [facility] 03-11-2017 influenza virus vacc ine, unspecified formulation Mohamad Mouchli [facility] 03-11-2017 influenza, injectabl e, quadrivalent, contains preservative Rm Susi DDS Work Phone: [facility] 02-20-2016 influenza virus vacc ine, unspecified formulation Mohamad Mouchli [facility] 02-20-2016 influenza, seasonal, injectable Rm Susi DDS Work Phone: [facility] 03-08-2015 influenza virus vacc ine, unspecified formulation Mohamad Mouchli [facility] 03-08-2015 influenza, injectabl e, quadrivalent, preservative free Rm Susi DDS Work Phone: [facility] 03-23-2014 influenza virus vacc ine, unspecified formulation Mohamad Mouchli [facility] 03-23-2014 influenza, injectabl e, quadrivalent, preservative free Rm Susi DDS Work Phone: [facility] 03-15-2013 influenza virus vacc ine, unspecified formulation Mohamad Mouchli [facility] 03-15-2013 influenza, seasonal, injectable Rm Susi DDS Work Phone: [facility] 08-31-2012 tetanus toxoid, redu penelope diphtheria toxoid, and acellular pertussis vaccine, adsorbed Rm Goldman DDS Work Phone: [facility] 03-10-2012 influenza virus vacc ine, unspecified formulation Mohalma delia Mouchli [facility] 03-10-2012 influenza, seasonal, injectable Rm Goldman DDS Work Phone: [facility] 01-29-2011 influenza virus vacc ine, unspecified formulation Mohemanueld Mouchli [facility] 01-29-2011 influenza, seasonal, injectable Rm Goldman DDS Work Phone: [facility] 03-13-2010 influenza virus vacc ine, whole virus Rm Goldman DDS Work Phone: [facility] 03-13-2010 influenza, whole Mohamad Erica chli [facility] 04-04-2009 novel influenza-H1N1 -09, preservative-free, injectable Rm Goldman DDS Work Phone: [facility] 03-09-2008 influenza virus vacc ine, whole virus Rm Goldman DDS Work Phone: [facility] 03-09-2008 influenza, whole Mohamad Erica chli [facility] 10-01-2006 meningococcal ACWY vaccine, unspecified formulation Gersond Rejiuchli [facility] 10-01-2006 meningococcal polysaccharide (groups A, C, Y and W-135) diphtheria toxoid conjugate vaccine (MCV4P) Rm Goldman DDS Work Phone: [facility] 09-02-2000 TD(adult) unspecifie d formulation; Translations: [Td(adult) unspecified formulation] Rm Goldman DDS Work Phone: [facility] 07-29-1990 diphtheria, tetanus toxoids and pertussis vaccine Rm Goldman DDS Work Phone: [facility] 07-29-1990 trivalent poliovirus vaccine, live, oral Rm Goldman DDS Work Phone: [facility] 11-03-1987 trivalent poliovirus vaccine, live, oral Rm Goldman DDS Work Phone: [facility] 07-02-1987 haemophilus influenz ae type b vaccine, conjugate unspecified formulation Rm Goldman DDS Work Phone: [facility] 07-02-1987 Hib, unspecified formulation Gersoncarmelo Rejiuchli [facility] 05-29-1987 diphtheria, tetanus toxoids and pertussis vaccine Rm Goldman DDS Work Phone: [facility] 05-29-1987 trivalent poliovirus vaccine, live, oral Rm Goldman DDS Work Phone: [facility] 11-15-1986 measles, mumps and rubella virus vaccine Rm Goldman DDS Work Phone: [facility] 06-28-1986 trivalent poliovirus vaccine, live, oral Rm Goldman DDS Work Phone: [facility] 1985 diphtheria, tetanus toxoids and pertussis vaccine Rm Goldman DDS Work Phone: [facility] 1985 diphtheria, tetanus toxoids and pertussis vaccine Rm Goldman DDS Work Phone: [facility] 1985 trivalent poliovirus vaccine, live, oral Rm Goldman DDS Work Phone: [facility] 1985 diphtheria, tetanus toxoids and pertussis vaccine Rm Goldman DDS Work Phone: [facility] Payers Date Payer Category Payer Medicaid [id number] 1985 Unknown [id number] 2.16.8 [id number] 1985 Unknown [id number] 2.16.8 [id number] 1985 Unknown [id number] 2.16.8 [id number] 1985 Unknown [id number] 2.16.8 [id number] 1985 Unknown [id number] 2.16.8 [id number] 1985 Unknown [id number] 2.16.8 [id number] 1985 Unknown [id number] 2.16. [id number] 1985 Unknown [id number] 2.16. [id number] 1985 Unknown [id number] 2.16. [id number] 1985 Unknown [id number] 2.16. [id number] 1985 Unknown [id number] 2.16.84 [id number] 1985 Unknown [id number] 2.16.84 [id number] 1985 Unknown [id number] 2.16.84 [id number] 1959 Medicaid [id number] Unknown [id number] 2.16.84 [id number] Unknown [id number] 2.16.84 [id number] Unknown [id number] 2.16.84 [id number] Unknown [id number] 2.16.84 [id number] Social History Date Type Detail Facility Start: 02-03-2019 End: 04-07-2024 Tobacco smoking status NHIS Never smoked tobacco [facility] Start: 02-03-2019 End: 04-07-2024 Tobacco use and exposure Smokeless tobacco non-user [facility] Start: 11-06-2020 End: 12-25-2023 Alcohol intake Ex-drinker (finding) [facility] Start: 1985 [facility] smoking status No Smoking Status Entered [facility] Start: 12-25-2023 End: 09-29-2024 Sex Assigned At Female [facility] Tobacco smoking status Never [facility] Start: 12-25-2023 End: 09-29-2024 History of Social function [facility] Tobacco smoking status NHIS Tobacco smoking consumption unknown [facility] Functional Status Date Assessment Result Facility 09-16-2023 Functional Status N/A [facility] 09-10-2023 Functional Status N/A [facility] Clinical Notes 07-14-2020 to [...] referral for oral surgery. Message sent to [facility] on January 13 2024 board. Message placed on board 01/11/24 @ 1152 am [facility] 01-11-2024 Miscellaneous Notes pt was seen in OR 01/08/24 , Stacie Montalvo DMD recommended that the pt be seen by [facility] fro care & follow up. in progess notes it states Referral placed to [facility] but NO referral can be found in pt's chart. please place referral for oral surgery. Message sent to [facility] on January 13 2024 board. Message placed on board 01/11/24 @ 1152 am documented in this encounter [facility] 01-08-2024 History of Present illness Narrative 1605 Discharge instructions reviewed, caregiver states pt on mouth was at home therefore does not wish to wait for prescription documented in this encounter [facility] 01-08-2024 Hospital Discharge instructions Divine Simon RN - 01/08/2024 3:48 PM EDT Images from the original note were not included. Dental abscess The Basics Written by the doctors and editors at [facility] What is a dental abscess? -- [...] do anything to prevent another dental abscess? [place] your teeth at least 2 times a [...] process is complete. This topic retrieved from [employer] on: Jul 29, 2023. Topic [id number] Version 1.0 Release: 32.2.4 - C32.71 2023 [employer]. and/or its affiliates. All rights reserved. figure 1: Dental abscess Adental abscess is a collection of pus from an infection in the mouth. Dentalabscesses can form in the gums, next to a tooth, or in the root of a tooth. Graphic 869802 Version 1.0 Consumer Information Use and Disclaimer [...] or approved for treating a specific patient. [employer] and its affiliates disclaim any warranty or liability relating to this information or the use thereof.The use of this information is governed by the Terms of Use, available at https://www.[employer].SurDoc/e n/know/yqhnwvos-utubrsjidkoql-r erms. 2023 [employer] and its affiliates and/or licensors. All rights reserved. Copyright 2023 [employer] and/or its affiliates. All rights reserved. PERIOPERATIVE DISCHARGE/HOME-GOING INSTRUCTIONS ANESTHESIA - GENERAL (ADULT) If a problem arises, you may contact your physician by calling [phone] and asking for the resident loan documentation specialist for Dental service. Special Care Needs: Activity: [...] very uncomfortable and can t urinate, call [phone] or come to the emergency room. The day after surgery, a nurse will call to check on you. However, if there are any questions or concerns, please call us at the number listed in the home going instructions. documented in this encounter [facility] 01-08-2024 History and physical note Surgical Attestation: [...] specific) Chandler Marin DDS 01/08/2024 1:47 PM [facility] 01-08-2024 Note Surgical Attestation : I have [...] Chandler Marin DDS 01/08/2024 1:47 PM [facility] 01-08-2024 History and physical note Surgical [...] 01/08/2024 1:47 PM documented in this encounter [facility] 01-08-2024 Miscellaneous Notes Brief Operative Note [facility] OR 3 Vee Sarabia 38 year old female Surgical Contact Serial Number: [id number] Preoperative Diagnosis: ADHD (attention deficit hyperactivity disorder) ([facility]) 10/08/2007 Anorexia 03/16/2008 Cerebral palsy ([facility]) 10/08/2007 Late effect of adverse effect of drug, medical or biological substance 05/02/2009 Mental impairment ([facility]) 10/08/2007 Mental retardation Other bipolar disorder ([facility]) 10/08/2007 Other conduct disorders ([facility]) 10/08/2007 Seizure disorder ([facility]) 10/08/2007 Postoperative Diagnosis: ADHD (attention deficit hyperactivity disorder) ([facility]) 10/08/2007 Anorexia 03/16/2008 Cerebral palsy ([facility]) 10/08/2007 Late effect of adverse effect of drug, medical or biological substance 05/02/2009 Mental impairment ([facility]) 10/08/2007 Mental retardation Other bipolar disorder ([facility]) 10/08/2007 Other conduct disorders ([facility]) 10/08/2007 Seizure disorder ([facility]) 10/08/2007 Procedures: Full mouth X-ray [22240] Full mouth cleaning [66985] Restorations [73602] Surgeon(s): Surgeon(s): Stacie Torres DMD Yoris, [place], DDS Staff: Location Director Nurse: Gabriel Hinkle Undercar Specialist: Chandler Parham DDS Anesthesia: General Anesthesiologist: Justin [...] year old female Surgical Contact Serial Number: [id number] Preoperative Diagnosis: ADHD (attention deficit hyperactivity disorder) ([facility]) 10/08/2007 Anorexia 03/16/2008 Cerebral palsy ([facility]) 10/08/2007 Late effect of adverse effect of drug, medical or biological substance 05/02/2009 Mental impairment ([facility]) 10/08/2007 Mental retardation Other bipolar disorder ([facility]) 10/08/2007 Other conduct disorders ([facility]) 10/08/2007 Seizure disorder ([facility]) 10/08/2007 Postoperative Diagnosis: ADHD (attention deficit hyperactivity disorder) ([facility]) 10/08/2007 Anorexia 03/16/2008 Cerebral palsy ([facility]) 10/08/2007 Late effect of adverse effect of drug, medical or biological substance 05/02/2009 Mental impairment ([facility]) 10/08/2007 Mental retardation Other bipolar disorder ([facility]) 10/08/2007 Other conduct disorders ([facility]) 10/08/2007 Seizure disorder ([facility]) 10/08/2007 Surgeon: Stacie Torres DMD Geriatric Psychiatrist Surgeon: Chandler Marin DDS Anesthesia: General- Nasal [...] were discussed with the patient and/or legal territory sales representative. The risks, benefits and alternatives were reviewed. Questions regarding blood transfusions were answered. The patient /or the patient s legal territory sales representative agree with the plan for transfusion of blood and/or blood components. documented in this encounter [facility] 01-08-2024 Surgery Postoperative evaluation and management note Brief Operative Note [facility] OR 3 Vee Sarabia 38 year old female Surgical Contact Serial Number: [id number] Preoperative Diagnosis: ADHD (attention deficit hyperactivity disorder) ([facility]) 10/08/2007 Anorexia 03/16/2008 Cerebral palsy ([facility]) 10/08/2007 Late effect of adverse effect of drug, medical or biological substance 05/02/2009 Mental impairment ([facility]) 10/08/2007 Mental retardation Other bipolar disorder ([facility]) 10/08/2007 Other conduct disorders ([facility]) 10/08/2007 Seizure disorder ([facility]) 10/08/2007 Postoperative Diagnosis: ADHD (attention deficit hyperactivity disorder) ([facility]) 10/08/2007 Anorexia 03/16/2008 Cerebral palsy ([facility]) 10/08/2007 Late effect of adverse effect of drug, medical or biological substance 05/02/2009 Mental impairment ([facility]) 10/08/2007 Mental retardation Other bipolar disorder ([facility]) 10/08/2007 Other conduct disorders ([facility]) 10/08/2007 Seizure disorder ([facility]) 10/08/2007 Procedures: Full mouth X-ray [53569] Full mouth cleaning [81362] Restorations [25599] Surgeon(s): Surgeon(s): Stacie Torres DMD Yoris, [place], DDS Staff: Location Director Nurse: Gabriel Hinkle Undercar Specialist: Chandler Parham DDS Anesthesia: General Anesthesiologist: Justin [...] by Chandler Marin DDS 01/08/2024 1:48 PM [facility] 01-08-2024 Surgery Surgical operation note Operative Note [facility] OR 3 Vee Sarabia 38 year old female Surgical Contact Serial Number: [id number] Preoperative Diagnosis: ADHD (attention deficit hyperactivity disorder) ([facility]) 10/08/2007 Anorexia 03/16/2008 Cerebral palsy ([facility]) 10/08/2007 Late effect of adverse effect of drug, medical or biological substance 05/02/2009 Mental impairment ([facility]) 10/08/2007 Mental retardation Other bipolar disorder ([facility]) 10/08/2007 Other conduct disorders ([facility]) 10/08/2007 Seizure disorder ([facility]) 10/08/2007 Postoperative Diagnosis: ADHD (attention deficit hyperactivity disorder) ([facility]) 10/08/2007 Anorexia 03/16/2008 Cerebral palsy ([facility]) 10/08/2007 Late effect of adverse effect of drug, medical or biological substance 05/02/2009 Mental impairment ([facility]) 10/08/2007 Mental retardation Other bipolar disorder ([facility]) 10/08/2007 Other conduct disorders ([facility]) 10/08/2007 Seizure disorder ([facility]) 10/08/2007 Surgeon: Stacie Torres DMD Geriatric Psychiatrist Surgeon: Chandler Marin DDS Anesthesia: General- Nasal [...] procedure. Chandler Marin DDS 01/08/2024 1:53 PM [facility] [employer] Work Phone: 01-08-2024 Progress note Formatting of t his note is different from the original. Blood Attestation: ATTESTATION OF INFORMED CONSENT FOR BLOOD: The transfusion of blood and/or blood components were discussed with the patient and/or legal territory sales representative. The risks, benefits and alternatives were reviewed. Questions regarding blood transfusions were answered. The patient /or the patient s legal territory sales representative agree with the plan for transfusion of blood and/or blood components. [employer] Work Phone: 01-08-2024 History of Present illness Narrative ----- Monday, January 08, 2024 at 3:45:54 PM ----- ----- Provider: [id number] - Stacie Torres DMD -- Clinic: [facility] ----- Pt was seen in OR under general anesthesia. comp exam, FMX and 4 quads SRP completed. Topical fluoride applied. #8 MIDLF broken tooth restored with composite. #12,13,14 present with non- restorable cervical lesions interproximally. 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 Referral placed to [facility] See note attached. Operative Note [facility] OR 3 Vee Sarabia 38 year old female Surgical Contact Serial Number: [id number] Preoperative Diagnosis: ADHD (attention deficit hyperactivity disorder) ([facility]) 10/08/2007 Anorexia 03/16/2008 Cerebral palsy ([facility]) 10/08/2007 Late effect of adverse effect of drug, medical or biological substance 05/02/2009 Mental impairment ([facility]) 10/08/2007 Mental retardation Other bipolar disorder ([facility]) 10/08/2007 Other conduct disorders ([facility]) 10/08/2007 Seizure disorder ([facility]) 10/08/2007 Postoperative Diagnosis: ADHD (attention deficit hyperactivity disorder) ([facility]) 10/08/2007 Anorexia 03/16/2008 Cerebral palsy ([facility]) 10/08/2007 Late effect of adverse effect of drug, medical or biological substance 05/02/2009 Mental impairment ([facility]) 10/08/2007 Mental retardation Other bipolar disorder ([facility]) 10/08/2007 Other conduct disorders ([facility]) 10/08/2007 Seizure disorder ([facility]) 10/08/2007 Surgeon: Stacie Torres DMD Geriatric Psychiatrist Surgeon: Chandler Marin DDS Anesthesia: General- Nasal [...] of surgery: Stable documented in this encounter [facility] 01-05-2024 History of Present illness Narrative Images from the original note were not included. No chief complaint on file. Subjective Vee Sarabia, 38 y.o., female HPI Vee is here for a f/u after an overnight home visit on 12/26/23. Her father showed nursing videos he took of vee while at home, having episodes of eyes fluttering and shaking her head. Her father states that it is her having a seizure. 15 min's after pt was dropped off at [facility] vee had a grand mal seizure. Movements, when alert, are very rigid and almost twitching, very pronounced. Her behaviors continued, pulling hair out and spitting. Trying to bite others and ripping off her clothes with her teeth. On 12/26/23 Dr. Price ordered to discontinue tegretol and Latuda, also a lab was order for Valproic Acid level, results with pt pw today. Past Medical History: Diagnosis Date ADHD (attention deficit hyperactivity disorder) ([facility]) 10/08/2007 Anorexia 03/16/2008 Cerebral palsy ([facility]) 10/08/2007 Late effect of adverse effect of drug, medical or biological substance 05/02/2009 Mental impairment ([facility]) 10/08/2007 Mental retardation Other bipolar disorder ([facility]) 10/08/2007 Other conduct disorders ([facility]) 10/08/2007 Seizure disorder ([facility]) 10/08/2007 Weight loss 03/16/2008 Past Surgical History: Procedure Laterality Date CHOLECYSTECTOMY 2008 No family history on file. Social History Tobacco Use Smoking status: Not on file Smokeless tobacco: Not on file Substance Use Topics Alcohol use: Not on file Allergies: Patient has no known allergies. General: No fever or chills HEENT: No nasal congestion or runny nose Pulmonary: No shortness of breath or cough Cardiovascular: No chest pain or palpitations GI: No nausea or vomiting : No dysuria or hematuria Musculoskeletal: No new aches or pains or muscle weakness Infectious: no recurrent fevers or infections Dermatologic: No rashes or skin lesions Neurologic: No new headaches or dizziness Vitals: 01/05/24 1022 BP: 118/80 Body mass index is 33.98 kg/m . weight: 174 lb Neurologic exam: General: Normal body habitus, cooperative, pleasant Mental status: Awake, alert to person only Recent and remote memory MRDD Attentive Fund of knowledge MRDD HEENT: NC/AT Cranial nerves: CN II: Visual allen full to confrontation. No loss of vision CN III, IV, : pupils equal round and reactive to light. Extraocular movements intact. No ptosis present. CN V: Facial sensation is normal. CN VII: Full and symmetric facial movement. CN VIII: Hearing is normal CN IX and X: Palate elevates symmetrically. CN XI: Shoulder shrug is normal bilaterally. CN XII: Tongue is midline without atrophy or fasciculation. Speech: Dysarthria from MRDD Pronator drift: Negative bilateral upper extremity Coordination: Intact, no signs of dysmetria Good finger to nose and rapid alternating movements Sensory: Sensation is intact to light touch throughout four extremities. Motor: LUE 4/5 RUE 4/5 LLE 1/5 RLE 1/5 Tone: Physiologic, no tremor, bradykinesia or rigidity DTR: Bilateral Biceps x Bilateral BR x Bilateral Patellar x No spasticity Gait: wheelchair Romberg's x Assessment/Plan Diagnoses and all orders for this visit: Seizure disorder (CMS/HCC) - Valproic acid level, total; Future - Levetiracetam level; Future Mental impairment (CMS/HCC) Other conduct disorders (CMS/HCC) Cerebral palsy, unspecified type (CMS/HCC) Weight loss Anorexia Other bipolar disorder (CMS/HCC) 38-year-old female with MRDD and cerebral palsy and symptomatic seizure disorder, behavioral and conduct issues. Prior to several visits ago, the week before, she was having nystagmas and crossing of her right eye and bilateral. This is evaluated every shift. This was noticed more when she was having behaviors . She is here again today with a DSP. She was no longer on the lamictal. Latuda was started at this same time. She does continue on the depakote and keppra. I do suspect the lamictal may have given her some seizure coverage and perhaps this discontinuation is the reason along with the affect of latuda can decrease seizure threshold. We did order an amb EEG to look for any epileptic activity, as we thought she would not be able to complete a routine in the office. She no longer beared any weight and would need a lift and 2 assits at that time. She was then transferring better and did not need the assist. We then decided to go with a 2 hour EEG between visits as staff was concerned with her being able to keep the wires on. This was normal. It does state she was uncooperative, she did not keep her eyes closed at all. In review of paperwork she has had tegretol added 02/19/[address] Terry Price. This is at a seizure prevention dosing. Then, her visit was moved up as the tegretol was stopped and lithium orderd. She was off the tegretol for 4 days and had a grand mal seizure reported from staff and another event they believe to be seizure. She then had the tegretol restarted and lithium stopped. There was then a phone call December 14 as she was having increased behaviors to the point that she was pulling out her own hair so therefore they had to practically shave her head. She has always had issues with biting and that was increasing as well. She is now spitting and biting her clothes off of herself. Psychiatry has been changing some of her medications around as noted above. They questioned if the Lyrica could be causing the increase in her behaviors. We do not prescribe Lyrica but she had been on it for some time without any dose changes. I do not believe that the Lyrica was the cause. These behaviors are continuing and Psychiatry has now gotten her off of her Latuda and her Tegretol. Unfortunately she now has had a grand mal seizure noted by the home. And the night prior to that she was home with her father and he stated she had 1 as well. We will increase her nighttime Depakote and see if this helps control the events. I do not want to increase the Keppra at this time as I do not want it to worsen any of her behaviors or mood. She is now on clonidine prn for impulse control. She is fairly cooperative in the room. She has a puppy dog and toy cat to distract her as always. She is louder and more fidgety than normal and is less patient and ready to leave. She does have weakness due to debility and is in wheelchair today. Lose of appetite, refusal to eat at times . Unable to weigh today. . Review and summary of old records: 12/28/2023 Valproic acid 70.0 Labwork 11/27/2022 from PCP reviewed VPA level was 100.8 Her CBC had slight variations, Liver panel was unremarkable, other than ALP 31, BMP was unremarkable other than Na 135, LDL 78, B12 581, TSH 0.986 Valporic acid 82 on 01/14/2023 . . . Plan home paperwork reviewed and lab sent continue with keppra 500 mg po BID Increase depakote ER for seizure prevention continue 500 mg in am and increase to 750 mg at bedtime Recheck drug level 10-14 days after depakote increase Depakote increase and labs wrote on report sheet and med sheet Psychiatry has been changing meds to control her behaviors monitor for worsening continue exercises call in for any events This was discussed with the patient, all questions were answered and they agreed with the treatment plan. The patient is to call with any worsening of the condition or new symptoms. Return to clinic: 3 months documented in this encounter [facility] 12-28-2023 Telephone encounter Note Anesthesia consent scanned into [employer]. [facility] 12-28-2023 Miscellaneous Notes Anesthesia consent scanned into [employer]. documented in this encounter [facility] 12-25-2023 Víctor Evans, GONZALES-MANAGER VOICE - 12/25/2023 10:36 AM EDT On the [...] for pain Please hold all Vitamin E, Cushman 3, fish oil and herbal supplements for 1 week prior to surgery Please hold Naltrexone 3 days prior to surgery. Last dose on 01/03. Please use this CHECKLIST to prepare for your surgery/procedure: ? Assume that any lab or testing done during your Pre-admission testing appointment is within normal limits unless otherwise contacted. ? Expect a call from [employer] one business day prior to surgery for [...] your Preparing for Your Surgery/Procedure booklet or [email or web address] if you have questions. Contact the Pre-Admission Testing department at [phone] or your surgeon's office with any questions [...] stay with you after surgery. Please call [facility] if you need transportation assistance or have concerns about going home [phone]. ? PEDIATRIC or ADOLESCENTS: Parents or a [...] signs of dehydration. Thank you for choosing [facility]; it is our pleasure to care for you documented in this encounter [facility] 12-25-2023 Instructions Víctor Goldberg APRN-CNP - 12/25/2023 [...] for pain Please hold all Vitamin E, Cushman 3, fish oil and herbal supplements for 1 week prior to surgery Please hold Naltrexone 3 days prior to surgery. Last dose on 01/03. Please use this CHECKLIST to prepare for your surgery/procedure: ? Assume that any lab or testing done during your Pre-admission testing appointment is within normal limits unless otherwise contacted. ? Expect a call from [employer] one business day prior to surgery for [...] your Preparing for Your Surgery/Procedure booklet or [email or web address] if you have questions. Contact the Pre-Admission Testing department at [phone] or your surgeon's office with any questions [...] stay with you after surgery. Please call [facility] if you need transportation assistance or have concerns about going home [phone]. ? PEDIATRIC or ADOLESCENTS: Parents or a [...] signs of dehydration. Thank you for choosing [facility]; it is our pleasure to care for you documented in this encounter [facility] 12-25-2023 History of Present illness Narrative Images from the original note were not included. Pre-Admission Testing Consultation Vee Sarabia, [id number] 38 year old Female 12/26/2023 Consult placed to [facility] by Dr. lAmaraz due to significant PMH of caries. [facility] Triage Risk Score Total Score: 2 2 Patient is on more than 2 antihypertension medications. Vee Sarabia is scheduled for DENTAL RESTORATIONS on 01/08/2024. Pre-Op diagnosis of: Pre-Op Diagnosis Codes: * Caries [K02.9] HISTORY OF PRESENT ILLNESS: Patient presents today with a history of caries. Patient is here for pre-admission optimization and education prior to surgery. She is accompanied with her caregiver at [place], Dora Saucedo, who is helping review the patient's current and past medical history. Gabriela Rodriguez (mother--phone-- [phone]) is legal guardian. 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 Pre-Admission Testing Consultation Vee Sarabia, [id number] 38 year old Female 12/26/2023 Consult placed to [facility] by Dr. Almaraz due to significant PMH of caries. [facility] Triage Risk Score Total Score: 2 2 Patient is on more than 2 antihypertension medications. Vee Sarabia is scheduled for DENTAL RESTORATIONS on 01/08/2024. Pre-Op diagnosis of: Pre-Op Diagnosis Codes: * Caries [K02.9] HISTORY OF PRESENT ILLNESS: Patient presents today with a history of caries. Patient is here for pre-admission optimization and education prior to surgery. She is accompanied with her caregiver at [place], Dora Saucedo, who is helping review the patient's current and past medical history. Gabriela Rodriguez (mother--phone-- [phone]) is legal guardian. 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 Pre-Admission Testing Consultation Vee Sarabia, [id number] 38 year old Female 12/26/2023 Consult placed to [facility] by Dr. Almaraz due to significant PMH of caries. [facility] Triage Risk Score Total Score: 2 2 Patient is on more than 2 antihypertension medications. Vee Sarabia is scheduled for DENTAL RESTORATIONS on 01/08/2024. Pre-Op diagnosis of: Pre-Op Diagnosis Codes: * Caries [K02.9] HISTORY OF PRESENT ILLNESS: Patient presents today with a history of caries. Patient is here for pre-admission optimization and education prior to surgery. She is accompanied with her caregiver at [place], Dora Saucedo, who is helping review the patient's current and past medical history. Gabriela Rodriguez (mother--phone-- [phone]) is legal guardian. 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 Almaraz due to significant PMH of caries. [facility] Triage Risk Score Total Score: 2 2 Patient is on more than 2 antihypertension medications. Vee Sarabia is scheduled for DENTAL RESTORATIONS on 01/08/2024. Pre-Op diagnosis of: Pre-Op Diagnosis Codes: * Caries [K02.9] HISTORY OF PRESENT ILLNESS: Patient presents today with a history of caries. Patient is here for pre-admission optimization and education prior to surgery. She is accompanied with her caregiver at [place], Dora Saucedo, who is helping review the patient's current and past medical history. Gabriela Rodriguez (mother--phone-- [phone]) is legal guardian. 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 [employer] [facility] 09-17-2023 Note [id number] [facility] 09-16-2023 Hospital Discharge instructions Patient Education 09/16/2023 08:49:14 Gastritis, Adult, Last-py-Evzh Gastritis, Adult Gastritis is irritation and swelling [...] Follow these instructions at home: Medicines Take ywxr-kgb-hopsklz and prescription medicines only as told by [...] provider. Document Revised: 09/07/2021 Document Reviewed: 09/07/2021 [employer] Patient Education 2022 [employer]. 09/16/2023 08:49:01 Endoscopy, Care After Procedure [facility] Endoscopy Care After Procedure Please [...] Document Re-Released: 10/26/2006 ExitCare Patient Information 2009 [employer]. Follow Up Care 09/10/2023 09:54:49 With:Jessee Nina Address: [address] [place] [address], [address] [place] [address]- [phone] Business (1) When:1 to 2 weeks Comments:Call for any problems. [facility] 09-16-2023 Note Endoscopy Care After Procedure Please [...] Document Re-Released: 10/26/2006 ExitCare? Patient Information ?2009 [employer]. Infectious Disease Gastritis, Adult Gastritis is irritation [...] these instructions at home: Medicines ? Take vszk-ejl-hxsxigd and prescription medicines only as told by [...] ask your do (more content not included)... [facility] 07-22-2022 History of Present illness Narrative ----- Friday, July 22, 2022 at 11:19:05 AM ----- ----- Provider: [id number] - Kary Ku, Resident -- Clinic: [place] ----- OR EVALUATION Patient presents for evaluation [...] Legal Guardian is Gabriela Rodriguez( Mother ): [phone] Ashlie Sarabia [phone] Contact information; [facility] [phone] Extension# [phone] Next Visit: OR ----- Signed on Friday, July 22, 2022 at 12:31:54 PM ----- ----- Provider: Charbel Jain DDS -- Clinic: [place] ----- documented in this encounter [facility] 07-14-2020 Note Patient Outreach ([place] VAMN) VEE SARABIA ([id number]) 1985 F NFR Date Time Provider Department 07/14/20 PUMA SPEAR During your visit today, we recorded the following information about you: Allergies As of Date: 07/14/2020 Noted Allergy Reaction SEASONAL ALLERGIES 11/08/2010 16 - Unknown Date Reviewed: 07/05/2019 Reviewed by: Clover Ng Ma - Fully Assessed Order(s):SARS-COVID VACCINE 1ST DOSE APPT [[id number]] Order #: [id number] FUTURE Prescriptions as of 07/14/2020 Sig: FLUTICASONE [...] Encounter Status:Closed by GURDEEP DELCIDUSER on 07/17/20 [facility] Evaluation + Plan note No data available for this section [facility] Evaluation + Plan note Future Appointments Appointment Date:09/16/2023 08:00:00 AM Scheduled Provider: Location:[facility] Surgical Services Appointment Type:Surgery FT Future Scheduled TestsNM Gastric Emptying Study 09/10/23 [facility] Evaluation + Plan note Future Appointments Appointment Date:09/23/2023 10:30:00 AM Scheduled Provider: Location[facility] Appointment Type:NM Gastric Emptying Study (FT) Future Scheduled TestsNM Gastric Emptying Study 09/23/23 [facility] Evaluation note Diagnosis Caries- Primary Unspecified dental [...] [facility] Diagnosis Seizure disorder (CMS/HCC)- Primary Unspecified epilepsy without mention of intractable epilepsy Cerebral palsy, unspecified type (CMS/HCC) Mental impairment (CMS/HCC) Unspecified mental retardation [facility] Diagnosis Caries- Primary Unspecified dental caries Preop testing- Primary Preoperative examination, unspecified Body mass index (BMI) 31.0-31.9, adult Abnormal electrocardiogram (ECG) (EKG) Caries Unspecified dental caries [facility] Diagnosis Seizure disorder (CMS/HCC)- Primary Unspecified epilepsy without mention of intractable epilepsy Mental impairment (CMS/HCC) Unspecified mental retardation Other conduct disorders (CMS/HCC) Cerebral palsy, unspecified type (CMS/HCC) Weight loss Loss of weight Anorexia Other bipolar disorder (CMS/HCC) [facility] Diagnosis Seizure disorder (CMS/HCC)- Primary Unspecified epilepsy without mention of intractable epilepsy Cerebral palsy, unspecified type (CMS/HCC) Mental impairment (CMS/HCC) Unspecified mental retardation Other conduct disorders [facility] No data available for this section [facility] No data available for this section [facility] Summary Purpose Family History No Family History [...] Referral Specialty Diagnoses / Procedures Referred By Ebony snyder Referred To Contact Oral Surgery Diagnoses Caries Stacie Torres DMD [address] [place] [address] Moo Schilling DMD, MD [address] [place] [address] Referral ID Status Reason Start Date Expiration Date V isits Requested Visits Authorized [id number] Pending Review 02/03/2024 02/02/2025 3 3 Scheduling Instructions Please call the routing machine operator Clinic at [facility] at to schedule an appointment if one was not made for you today. Question Answer Patient to be evaluated for: Extractions Tooth Number for Extraction Please evaluate patient for extractions of teeth # 12,13,14. Due to pt. terminal manager [employer] usage. Additional Source Comments INFORMATION SOURCE (unrecogn ized section and content) DATE CREATED AUTHOR 06/15/2021 [facility] DATE CREATED AUTHOR AUTHOR'S ORGANIZ ATION 10/01/2022 [facility] DATE CREATED AUTHOR AUTHOR'S ORGANIZ ATION 09/28/2023 [facility] DATE CREATED AUTHOR AUTHOR'S ORGANIZ ATION 08/07/2024 [facility] DATE CREATED AUTHOR AUTHOR'S ORGANIZ ATION 09/30/2024 [facility] dicia Specialists [employer] Care Teams (unrecognized sec tion and content) Doctor Podiatric Medicine Relationship Specialty Start Date End Date Rm Goldman DDS [address] [place] [address] Resident Dentistry 02/21/20 Mony Adler APRN-MANAGER VOICE [address] [place] [address] [place] [address] BENCH ASSEMBLER ELECTRICAL Anesthesiology 11/16/20 Doctor Podiatric Medicine Relationship Specialty Start Date End Date Rm Goldman DDS [address] [place] [address] Resident Dentistry 02/21/20 Mony Adler APRN-MANAGER VOICE [address] [place] [address] [place] [address] BENCH ASSEMBLER ELECTRICAL Anesthesiology 11/16/20 Doctor Podiatric Medicine Relationship Specialty Start Date End Date Rm Goldman DDS [address] [place] [address] Resident Dentistry 02/21/20 Mony Adler APRN-MANAGER VOICE [address] [place] [address] [place] [address] BENCH ASSEMBLER ELECTRICAL Anesthesiology 11/16/20 Doctor Podiatric Medicine Relationship Specialty Start Date End Date Rm Goldman DDS [address] [place] [address] Resident Dentistry 02/21/20 Mony Adler APRN-MANAGER VOICE [address] [place] [address] [place] [address] BENCH ASSEMBLER ELECTRICAL Anesthesiology 11/16/20 Doctor Podiatric Medicine Relationship Specialty Start Date End Date Bisi GoldmananKASSIDY [address] [place] [address] Resident Dentistry 02/21/20 Mony Adler APRN-MANAGER VOICE [address] [place] [address] [place] [address] BENCH ASSEMBLER ELECTRICAL Anesthesiology 11/16/20 Doctor Podiatric Medicine Relationship Specialty Start Date End Date Rm Goldman DDS [address] [place] [address] Resident Dentistry 02/21/20 Mony Adler APRN-MANAGER VOICE [address] [place] [address] [place] [address] BENCH ASSEMBLER ELECTRICAL Anesthesiology 11/16/20 Doctor Podiatric Medicine Relationship Specialty Start Date End Date Rm Goldman DDS [address] [place] [address] Resident Dentistry 02/21/20 Mony Adler APRN-MANAGER VOICE [address] [place] [address] [place] [address] BENCH ASSEMBLER ELECTRICAL Anesthesiology 11/16/20 Doctor Podiatric Medicine Relationship Specialty Start Date End Date Rm Goldman DDS [address] [place] [address] Resident Dentistry 02/21/20 Mony Adler APRN-CNP [address] [place] [address] [place] [address] BENCH ASSEMBLER ELECTRICAL Anesthesiology 11/16/20 Doctor Podiatric Medicine Relationship Specialty Start Date End Date Rm Goldman DDS [address] [place] [address] Resident Dentistry 02/21/20 Mony Adler APRN-MANAGER VOICE [address] [place] [address] [place] [address] BENCH ASSEMBLER ELECTRICAL Anesthesiology 11/16/20 Doctor Podiatric Medicine Relationship Specialty Start Date End Date Rm Goldman DDS [address] [place] [address] Resident Dentistry 02/21/20 Mony Adler 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 VOICE [address] [place] [address] [place] [address] BENCH ASSEMBLER ELECTRICAL Anesthesiology 11/16/20 Doctor Podiatric Medicine Relationship Specialty Start Date End Date Stef Argueta MD [address] [place] [address] Referring Physician Family Medicine 08/10/23 Suzi Bates DO [address] [place] [address] Referring Physician Neurology 08/10/23 Doctor Podiatric Medicine Relationship Specialty Start Date End Date Stef Argueta MD [address] [place] [address] Referring Physician Family Medicine 08/10/23 Suzi Bates DO [address] [place] [address] Referring Physician Neurology 08/10/23 Doctor Podiatric Medicine Relationship Specialty Start Date End Date Rm Goldman, DDS [address] [place] [address] Resident Dentistry 02/21/20 Mony Adler 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 VOICE [address] [place] [address] BENCH ASSEMBLER ELECTRICAL Anesthesiology 11/16/20 Doctor Podiatric Medicine Relationship Specialty Start Date End Date Amy Farooq NP [address] [place], [place] PCP - FFS [facility] 11/16/23 Stef Argueta MD [address] [place] [address] Referring Physician Family Medicine 08/10/23 Suzi Bates DO [address] [place] [address] Referring Physician Neurology 08/10/23 Doctor Podiatric Medicine Relationship Specialty Start Date End Date Amy Farooq NP [address] [place] [address] PCP - FFS [facility] 11/16/23 Stef Argueta MD [address] [place] [address] Referring Physician Family Medicine 08/10/23 Suzi Bates DO [address] [place] [id number] Referring Physician Neurology 08/10/23 Doctor Podiatric Medicine Relationship Specialty Start Date End Date Amy Farooq NP [address] PCP - FFS [facility] 05/18/24 Stef Argueta MD [address] [place] [address] Referring Physician Family Medicine 08/10/23 Suzi Bates DO [address] [place] [address] Referring Physician Neurology 08/10/23 Doctor Podiatric Medicine Relationship Specialty Start Date End Date Amy Farooq NP [address] [place] [address] PCP - FFS [facility] 05/18/24 Stef Argueta MD [address] [place] [address] Referring Physician Family Medicine 08/10/23 Suzi Bates DO [address] [place] [address] Referring Physician Neurology 08/10/23 Reason for Visit (unrecogniz ed section and content) Reason Onset Date Comments Pre-surgical Evaluation 01/06/2024 DD adult dental restorations 01/07 under [place] at [facility]. MARY completed - consents obtained. MARY RN spoke to Cassidy, confirmed NPO except water only until 0900 (Cassidy stated pt does not like and will not drink water), [facility] address, and 1100 arrival time Specialty Diagnoses / Procedures Referred By Ebony snyder Referred To Contact Ambulatory Surgery Diagnoses Caries Caries [K02.9] Procedures ANESTHESIA, INTRAORAL PROC, W/BX; NOS UNLISTED PROCEDURE, DENTOALVEOLAR STRUCTURES DENTAL RESTORATIONS Stacie Torres DMD [address] [place] [address] [facility] [address] [facility] [place] [address] Phone: [phone] Referral ID Status Reason Start Date Expiration Date Visits Re quested Visits Authorized [id number] 3 Reason Onset Date Comments Referral needs placed for OS 01/11/2024 Reason Onset Date Comments Refill 02/03/2024 Reason Comments Seizures Continuous Active and Recently Administ ered Medications [...] BE BASED ON THE PRIMARY CLINICAL RECORDS. [facility]. provides no warranty or guarantee of the accuracy or completeness of information in this document.
== END 2024-10-05 09:36 | disposition home or self-care (01) ==
LOC: RAD 09:35
PROVIDERS: PCP Family Medicine; Visit Provider Family Medicine
DX: M85.80 Other specified disorders of bone density and structure, unspecified site (principal); Z79.899 Other long term (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
CPT/HCPCS: 77080

== ENCOUNTER 2025-02-09 07:13 | Outpatient (OUT) | payer MEDICAID, SELFPAY ==
--- OUTSIDE RECORDS SUMMARY | 2025-01-25 10:10 | XMS_ITS | Encounter Summary ---
Author Organization [facility] Address [address] [place] [address] Care Team Providers Care Fine Arts Instructor Name Role Phone Rm Goldman DDS Unavailable [phone] Vitor Mony PACU NURSE-BALANCE CLERK Unavailable [phone] Moo Olsen DMD, MD Unavailable [phone] Encounter Details Date Type Department Care Team (Late st Contact Info) Description 01/25/2025 10:10 AM EDT Office Visit 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) Social History Tobacco Use Types Packs/Day Years Used Date Smoking Tobacco: Never Smokeless Tobacco: Never Alcohol Use Standard Drinks/Week Comments Not Currently 0 (1 standard drink = 0.6 oz pur e alcohol) Substance Use Types Use/Week Comments Not Currently Comments No Sex and Gender Information Value Date Recorded Sex Assigned at Not on file Legal Sex Female 12:15 PM EST Gender Identity Not on file Sexual Orientation Not on file documented as of this encounter Progress Notes * Robin De La Cruz DDS - 01/25/2025 4:51 PM EDT ORAL SURGERY CLINIC FOLLOW UP VISIT Chief Complaint: Pt was contacted via telephone for follow up. History of present illness: 39 yrs old White female 1 week s/p extraction of #12, 13, 14 Patient's long-term and patient's mother was contacted separately. Voicemail left with call backnumber since the call was not answered. 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
--- OUTSIDE RECORDS SUMMARY | 2025-02-09 07:15 | XMS_ITS | Encounter Summary ---
Author Organization [facility] Address [address] [place] [address] Care Team Providers Care Principal Data Architect Name Role Phone Susi Rm DDS Unavailable [phone] Mony Adler APRN-HOCKEY PLAYER Unavailable [phone] Moo Olsen DMD, MD Unavailable [phone] Encounter Details Date Type Department Care Team (Late st Contact Info) Description 07/13/2024 Abstract [facility] [address] [place] [address] Provider, Mounika Amezquita DDS [address] [place] [address] Social History Tobacco Use Types Packs/Day Years [...] on file documented as of this encounter Plan of Treatment Scheduled Orders Name Type Priority Associated Diagnoses Orde r Schedule 14 EXTRACTION ERUPTED TOOTH/EXR Dental Routine [address] ar[place] 01/30/2025 12 EXTRACTION ERUPTED TOOTH/EXR Dental Routine [address] arting 01/30/2025 13 EXTRACTION ERUPTED TOOTH/EXR Dental Routine [address] arting 01/30/2025 documented as of this encounter Visit Diagnoses Not on filedocumented in this encounter Care Teams Principal Data Architect Relationship Specialty Start Date End Date Rm Goldman DDS [address] [place] [address] Resident Dentistry 10/6/20 Mony Adler, GONZALES-HOCKEY PLAYER [address] [place], [place] [phone] BOAT AND PLANT UTILITY SUPERVISOR Anesthesiology 11/16/20 Moo Olsen DMD, MD [address] [facility], [place] [phone] Physician Oral & Maxillofacial Surgery 08/20/24 documented as of this encounter
--- OUTSIDE RECORDS SUMMARY | 2025-02-09 07:15 | XMS_ITS | Encounter Summary ---
Author Organization [facility] Address [address] [place] [address] Care Team Providers Care Junior Art Director Name Role Phone Rm Goldman DDS Unavailable [phone] Mony Adler AGRICULTURE SCIENCE TEACHER-SOLDER MAKING LABORER Unavailable [phone] Moo Olsen DMD, MD Unavailable [phone] Encounter Details Date Type Department Care Team (Late st Contact Info) Description 01/08/2024 Abstract [facility] [address] [place], [place] [phone] Chandler Parham [address] [place] [address] Social History Tobacco Use Types Packs/Day Years [...] as of this encounter Plan of Treatment Not on file documented as of this encounter Procedures Procedure Name Priority Date/Time Associated Diagnosis Comments TOPICAL MARSHALL OF FLUORIDE Routine 01/08/20 12:00 AM EDT UL PERIODONTAL SCALING & ROOT Routine 01/08/2024 12:00 AM EDT LL PERIODONTAL SCALING & ROOT Routine 01/08/2024 12:00 AM EDT LR PERIODONTAL SCALING & ROOT Routine 01/08/2024 12:00 AM EDT UR PERIODONTAL SCALING & ROOT Routine 01/08/2024 12:00 AM EDT 8 MIDFL RESIN - FOUR OR MORE SURFACES* Routine 01/08/2024 12:00 AM EDT COMPREHENSVE ORAL EVALUATION Routine 01/08/2024 12:00 AM EDT documented in this encounter Visit Diagnoses Not on filedocumented in this encounter Care Teams Junior Art Director Relationship Specialty Start Date End Date Rm Goldman DDS [address] [place] [address] Resident Dentistry 02/21/20 Mony Adler, AGRICULTURE SCIENCE TEACHER-SOLDER MAKING LABORER [address] [place] [address] [place] [address] BARREL ROLLER OPERATOR Anesthesiology 11/16/20 Moo Olsen DMD, MD [address] [place] [address] Physician Oral & Maxillofacial Surgery 08/20/24 documented as of this encounter
--- OUTSIDE RECORDS SUMMARY | 2025-02-09 07:15 | XMS_ITS | Encounter Summary ---
Author Organization [facility] Address [address] [place] [address] [place] [address] Care Team Providers Care Game Farm Helper Name Role Phone Susi Rm DDS Unavailable [phone] Mony Adler STONE PAVER-CABINET MAKER Unavailable [phone] Moo Olsen DMD, MD Unavailable [phone] Encounter Details Date Type Department Care Team (Late st Contact Info) Description 09/12/2020 Prep for Surgery [facility] Dentistry [address] [place] [address] Kelvin Zamorano DDS [address] [place] [address] Social History Tobacco Use Types Packs/Day Years Used Date Smoking Tobacco: Never Smokeless Tobacco: Never Comments No Sex and Gender Information Value Date Recorded Sex Assigned at Not on file Legal Sex Female 12:15 PM EST Gender Identity Not on file Sexual Orientation Not on file documented as of this encounter Plan of Treatment Not on file documented as of this encounter Visit Diagnoses Diagnosis Dental decay- Primary Unspecified dental caries documented in this encounter Care Teams Game Farm Helper Relationship Specialty Start Date End Date Rm Goldman DDS [address] [place] [address] [phone] Resident Dentistry 02/21/20 Mony Adler APRN-CABINET MAKER [address] [place] [address] [place] [address] CYANIDE POT TENDER Anesthesiology 11/16/20 Moo Olsen DMD, MD NPI: [id number] [place], [place] [id number] Physician Oral & Maxillofacial Surgery 08/20/24 documented as of this encounter
--- OUTSIDE RECORDS SUMMARY | 2025-02-09 07:15 | XMS_ITS | Encounter Summary ---
Author Organization [facility] Address [address] [facility] [place] [address] Care Team Providers Care Clam Grower Name Role Phone Rm Goldman DDS Unavailable [phone] Mony Adler FREELANCE TRANSLATOR-RESAW TAILER Unavailable [phone] Moo Olsen DMD, MD Unavailable [phone] Encounter Details Date Type Department Care Team (Late st Contact Info) Description 05/17/2021 Abstract PATIENT ACUITY SCORE Social History Tobacco Use Types Packs/Day Years [...] on filedocumented in this encounter Care Teams Clam Grower Relationship Specialty Start Date End Date Rm Goldman DDS [address] [place] [address] Resident Dentistry 02/21/20 Mony Adler APRN-RESAW TAILER [address] [place] [address] [place] [address] SENIOR PROCESS CONTROL TECH Anesthesiology 11/16/20 Moo Olsen DMD, MD [address] [place] [address] Physician Oral & Maxillofacial Surgery 08/20/24 documented as of this encounter
--- OUTSIDE RECORDS SUMMARY | 2025-02-09 07:15 | XMS_ITS | Clinical Summary ---
Author Organization [facility] Address [address] [place] [address] Care Team Providers Care Magnetic Testing Technician Name Role Phone Rm Goldman DDS Unavailable [phone] Mony Harris POKER MACHINE ATTENDANT-REAL ESTATE REP Unavailable [phone] Moo Olsen DMD, MD Unavailable [phone] Source Comments The following information is NOT included in Care Everywhere downloads:Psychiatric notes, ECG results, Cardiac Rehab notes, Pulmonary Function notes, data from [place] (includes but not limited toPregnancy data,audiograms, eye exams, pre-surgical evaluation notes, well-child exam data).[facility] Allergies Active Allergy Reactions Criticality Noted Date Comments Diphenhydramine 12/25/2023 Chloral Hydrate 12/25/2023 Octacosanol 11/08/2010 Other Reaction(s): Unknown Diazepam 12/25/2023 Medications divalproex (DEPAKOTE) 500 MG enteric coated tabletIndicatio ns:take one tablet in the morning and 2 tablets at bedtime Take 500 mg by mouth 2 times daily Indications: take one tablet in the morning and 2 tablets at bedtime. 1 tab am and 2 tab hs Active divalproex (DEPAKOTE SPRINKLE) 125 MG CSDR capsuleIndicati ons:take 2 capsules by mouth every morning Take 125 mg by mouth Indications: take 2 capsules by mouth every morning. Active famotidine (PEPCID) 20 MG tablet Take 20 mg by mouth daily. Active levETIRAcetam (KEPPRA) 500 MG tablet Take 500 mg by mouth 2 times daily. Active levothyroxine (SYNTHROID) 75 MCG tablet Take 75 mcg by mouth daily. Take at 4 pm Active loratadine (CLARITIN) 10 MG tablet Take 10 mg by mouth daily. Active pregabalin (LYRICA) 75 MG capsule Take 75 mg by mouth 3 times daily. Active montelukast (SINGULAIR) 10 MG tablet Take 10 mg by mouth daily. Active naltrexone 50 MG tabletIndicatio ns:take 2 tablets twice a day Take 50 mg by mouth daily Indications: take 2 tablets twice a day. Active Oyster Shell 500 MG TABS Take by mouth. Active senna (SENNA-TABS) 8.6 MG TABS tabletIndicatio ns:daily at 0800 and 2000 Take 1 Tablet by mouth Indications: daily at 0800 and 2000. Active VITAMIN D ORAL Take 1,000 Units by mouth daily. Active cloNIDine (CATAPRES) 0.1 MG tablet Take 0.1 mg by mouth 2 times daily. Active medroxyPROGESTE Reyes (Depo-Provera) 150 MG/ML injection Inject 150 mg into the muscle once. Active ondansetron (Zofran) 4 MG tablet Take 4 mg by mouth every 12 hours as needed for Nausea. Active chlorhexidine (Peridex) 0.12 % oral solution Swish mouth with 15 mL by mouth 2 times daily. DO NOT SWALLOW 473 mL 3 01/08/2024 Active Cariprazine HCl (Vraylar) 6 MG CAPS capsule 10/22/2023 Active guaifenesin-dex tromethorphan (MUCINEX DM) 30-600 MG tablet 07/28/2023 Active Promethazine HCl (PHENERGAN INJ) Take by mouth. 09/10/2023 Active risperiDONE (RISPERDAL) 3 MG tablet 07/07/2024 Active D3-1000 25 MCG (1000 UT) CAPS capsule 07/07/2024 Active divalproex ER (DEPAKOTE ER) 250 MG ER tablet at bedtime. 07/07/2024 Active divalproex ER (DEPAKOTE ER) 500 MG ER tablet 07/07/2024 Active Linzess 290 MCG CAPS capsule Take 290 mcg by mouth daily. 06/27/2024 Active lurasidone (LATUDA) 80 MG tablet Take 1 Tablet by mouth. 12/07/2023 Active pantoprazole (PROTONIX) 40 MG tablet 12/07/2023 Active CARBAMAZEPINE ORAL Take by mouth. 09/10/2023 Active Calcium Carb-Cholecalci ferol (Oyster Shell Calcium w/D) 500-5 MG-MCG TABS 12/07/2023 Active cyproheptadine (PERIACTIN) 4 MG tablet Take 4 mg by mouth at bedtime. Active ibuprofen (MOTRIN) 600 MG tablet Take 1 Tablet by mouth every 6 hours as needed for Pain. 30 Tablet 1 01/18/2025 Active chlorhexidine (Peridex) 0.12 % oral solution Take 15 mL by mouth 2 times daily. 480 mL 1 01/18/2025 Active acetaminophen (TYLENOL) 500 MG tablet Take 1 Tablet by mouth every 4 hours as needed for Pain or Fever. 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 07/13/19 25 Caries 10/08/2023 Hypothyroidism, unspecified 09/22/2022 Epilepsy, unspecified, not i ntractable, without status epilepticus 04/29/2022 Dental decay 09/13/2020 Overview (09/13/2020): Added automatically from request for surgery [id number] Dental caries 02/09/2019 Overview (02/09/2019): Added automatically from request for surgery [id number] Hamstring tightness 12/09/2010 Crouched gait 12/09/2010 Anorexia 03/16/2008 Other bipolar disorder 10/08/2007 Severe intellectual disabili ty with intelligence quotient 20 to 34 10/08/2007 Overview (07/13/2024): Mental retardation Seizure disorder 10/08/2007 Examination following surgery 10/04/2002 Cerebral palsy 06/17/2002 Encounters Date Type Department Care Team Description 01/25/2025 10:10 AM EDT Office Visit [facility] Oral Surgery [address] [place] [address] Moo Olsen DMD, MD 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) 01/18/2025 12:28 PM EDT - 01/18/2025 1:51 PM EDT Surgery [facility] [address] [place] [address] Moo Olsen DMD, MD EXTRACTION, TEETH: #12,#13,#14 01/18/2025 12:13 PM EDT Anesthesia Event [facility] [place] [address] [place] [address] yRan Kc MD Mathialagan, Samantha, MD 01/18/2025 10:51 AM EDT - 01/18/2025 1:52 PM EDT Hospital Encounter [facility] [place] [address] [place] [address] Moo Olsen DMD, MD 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) Discharge Disposition: Discharge to Home 01/17/2025 Telephone [facility] Pre-Admission Testing [address] [place] [address] Marco Brower RN 01/17/2025 Telephone [facility] Pre-Admission Testing [address] [place] [address] Marco Brower RN 01/09/2025 Telephone [facility] Pre-Admission Testing [address] [place] [address] Susie Dumont RN 01/04/2025 9:30 AM EDT Nurse Visit [facility] Pre-Admission Testing [address] [place] [address] Radha Evans RN Pre-op evaluation (Primary Dx) 11/15/2024 Telephone [facility] Oral Surgery [address] [place] [address] Moo Olsen DMD, MD from Last 3 Months Immunizations Immunization Administration Dates Next Due COVID-19 Vaccine (12+ yrs, M ramon) mRNA, spike protein, LNP, pres. free, 50 mcg/0.5 mL dose (TJE=037) 03/03/2024 COVID-19 Vaccine (12+ yrs, P fizer) mRNA, spike protein, LNP, pres. free, 30 mcg/0.3mL dose, adam-sucrose (TPU=658) 03/04/2023 DTP (CVX=01) 07/29/1990, 8,1985,09/24,1985 Hib, unspecified formulation (CVX=17) 07/02/1987 Influenza, injectable, quadr ivalent, preservative (XJS=642) 03/11/2017 Influenza, injectable, quadr ivalent, preservative free (LXQ=350) 03/13/2021,02/22/2020,03/11/2019,02/24,03/08/2015,03/23/2014 Influenza, injectable, triva lent, preservative (OPN=943) 02/20/2016,03/15/2013,03/10/2012,01/29 Influenza, injectable, triva lent, preservative free (ASJ=851) 03/03/2024 Influenza, novel C6P7-12, in jectable, preservative-free (AIP=428) 04/04/2009 Influenza, unspecified formu lation (CVX=88) 03/04/2023,03/05/2022 Influenza, whole virus (CVX=16) 03/13/2010,03/09 MMR, Xbdnmap-Cyeez-Ryzukbe (CVX=03) 11/15/1986 Meningococcal conjugate (MCV4,Men-ACWY), Menactra (MCV4P) (VEK=662) 10/01/2006 Pfizer Monovalent (12+ yrs) SARS-COV-2 (COVID-19) vaccine, mRNA, spike protein, LNP, pres. free, 30 mcg/0.3mL dose (RTM=803) 06/19/2020,05/29/2020 Polio, oral (OPV) (CVX=02) 07/29/1990,,05/29/1987,06/28,1985 Td (adult), unspecified form ulation (XUD=494) 09/02/2000 Tdap (WYT=240) 08/14/2022,08/31/2012 Social History Tobacco Use Types Packs/Day Years [...] on file Sexual Orientation Not on file Last Filed Vital Signs Vital Sign Reading Time Taken Comments Blood Pressure 122/91 01/18/2025 1:30 PM EDT Pulse 74 01/18/2025 1:30 PM EDT Temperature 36.1 C (97 F) 01/18/2025 1:30 PM EDT Respiratory Rate 14 01/18/2025 1:30 PM EDT Oxygen Saturation 97% 01/18/2025 1:30 PM EDT Inhaled Oxygen Concentration - - Weight 66.2 kg (146 lb) 01/18/2025 11:26 AM EDT Height 147.3 cm (4' 10 ) 01/18/2025 11:26 AM EDT Body Mass Index 30.51 01/18/2025 11:26 AM EDT Plan of Treatment Health Maintenance Due Date Last Done Comments Dental Prophylaxis 1985 Mammography (shared decision-making, age 35-39) 1985 TSH 1985 HIV Test 2000 Hepatitis C Antibody 2003 Hepatitis A (HAV) Vaccine (optional start 19+ years) 2004 Hepatitis B (HBV) Vaccine (1 of 3 - 19+ 3-dose series) 2004 Pap Smear 2006 HPV Vaccine (optional start 27-45 years) 2012 Dental Oral Exam 07/11/2024 01/08/2024 Dental X-Ray: Bitewings 01/08/2025 01/08/2024 Influenza Vaccine (#1) 2025 , 03/04/2023, 03/05/2022, Additional history exists Tetanus (Td or Tdap) Booster 08/14/2032 08/14/2022, 08/31/2012, 09/02/2000 Shingles (RZV) Vaccine (1 of 2) 2035 Tdap Booster Completed 08/14/2022, 08/31/2012 COVID-19 Vaccine Completed 03/03/2024, , 08/14/2022, Additional history exists Mammography Discontinued Pneumococcal Vaccine(s) Aged Out No l onger eligible based on patient's age to complete this topic Procedures Procedure Name Priority Date/Time Associated Diagnosis Comments ANESTHESIA, INTRAORAL PROC, W/BX; NOS Routine scheduled 01/18/2025 12:01 PM EDT Caries 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 Case Notes 08/08 VM-1 SP 08/05 S/W JIMENEZ FROM from [facility] to see if she can GD pt.sp; PT In a Developmental facility sp Special Needs PT in a home 1.5 away from [place] [phone] sp At [facility] [phone]-PLEASE CALL [phone] TO GIVE ARRIVAL TIME UNLISTED PROCEDURE, DENTOALVEOLAR STRUCTURES Routine scheduled 01/18/2025 12:01 PM EDT Caries 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 Case Notes 08/08 VM-1 SP 08/05 S/W JIMENEZ FROM from [facility] to see if she can GD pt.sp; PT In a Developmental facility sp Special Needs PT in a home 1.5 away from [place] [phone] sp At [facility] [phone]-PLEASE CALL [phone] TO GIVE ARRIVAL TIME URINE HCG-IN OFFICE Routine 01/18/2025 11:45 AM EDT COMPREHENSVE ORAL EVALUATION Routine 01/08/2024 12:00 AM EDT from Last 3 Months or Most Recently Relevant to Health Maintenance Results * URINE HCG-IN OFFICE (01/18/2025 11:45 AM EDT) Urine Beta hCG Negative Negative Positive Internal Control Positive Positive Negative Internal Control Negative Negative Urine URINE SPECIMEN / Unknown 01/18/2025 11:45 AM EDT us Emerson Quick DMD EC BACK OFFICE LABS Final Resu lt from Last 3 Months Insurance MEDICAID DENTAL-MEDICAID DENTAL-MEDICAID Care Teams Magnetic Testing Technician Relationship Specialty Start Date End Date Rm Goldman, DDS [address] [place] [address] Resident Dentistry 02/21/20 Mony Adler, POKER MACHINE ATTENDANT-REAL ESTATE REP [address] [place] [address] GIFT SHOP CLERK Anesthesiology 11/16/20 Moo Olsen DMD, MD [address] [place], [place] [phone] Physician Oral & Maxillofacial Surgery 08/20/24
--- OUTSIDE RECORDS SUMMARY | 2025-02-09 07:15 | XMS_ITS | Encounter Summary ---
Author Organization [facility] Address [address] [place] [address] [place] [address] Care Team Providers Care Unclaimed Property Officer Name Role Phone Susi Rm DDS Unavailable [phone] Mony Adler APPLIQUE CUTTER-AIR BAG BUFFER Unavailable [phone] Moo Olsen DMD, MD Unavailable [phone] Encounter Details Date Type Department Care Team (Late st Contact Info) Description 10/12/2020 Prep for Surgery [facility] Dentistry [address] [place] [address] [phone] Abdoulaye Robison DDS [address] [place] [address] [phone] Social History Tobacco Use Types Packs/Day Years [...] of this encounter Visit Diagnoses Diagnosis Dental caries- Primary Unspecified dental caries documented in this encounter Care Teams Unclaimed Property Officer Relationship Specialty Start Date End Date Rm Goldman DDS [address] [place] [address] [phone] Resident Dentistry 02/21/20 Mony Adler APRN-AIR BAG BUFFER [address] [place] [address] [phone] JUICE SCALEMAN Anesthesiology 11/16/20 Moo Olsen DMD, MD [address] [place] [address] Physician Oral & Maxillofacial Surgery 08/20/24 documented as of this encounter
--- OUTSIDE RECORDS SUMMARY | 2025-02-09 07:15 | XMS_ITS | Encounter Summary ---
Author Organization [facility] Address [address] [facility] [place] [address] Care Team Providers Care Membership Sales Manager Name Role Phone Rm Goldman DDS Unavailable [phone] Mony Adler BINDER ROLLER-PARTY PLAN SALES UNIT SALES LEADER Unavailable [phone] Moo Olsen DMD, MD Unavailable [phone] Encounter Details Date Type Department Care Team (Late st Contact Info) Description 08/15/2021 Abstract PATIENT ACUITY SCORE Social History Tobacco [...] on filedocumented in this encounter Care Teams Membership Sales Manager Relationship Specialty Start Date End Date Rm Goldman DDS [address] [place] [address] Resident Dentistry 02/21/20 Mony Adler APRN-PARTY PLAN SALES UNIT SALES LEADER [address] [place] [address] [place] [address] HAIR MACHINE OPERATOR Anesthesiology 11/16/20 Moo Olsen DMD, MD [address] [place] [address] Physician Oral & Maxillofacial Surgery 08/20/24 documented as of this encounter
--- OUTSIDE RECORDS SUMMARY | 2025-02-09 07:15 | XMS_ITS | Encounter Summary ---
Author Organization [facility] Address [address] [facility] [place] [address] Care Team Providers Care Family Court Justice Name Role Phone Rm Goldman DDS Unavailable [phone] Mony Adler MARKETING OPERATIONS MANAGER-STEAM ROOM ATTENDANT Unavailable [phone] Moo Olsen DMD, MD Unavailable [phone] Encounter Details Date Type Department Care Team (Late st Contact Info) Description 03/28/2021 Abstract PATIENT ACUITY SCORE Social History Tobacco [...] on filedocumented in this encounter Care Teams Family Court Justice Relationship Specialty Start Date End Date Rm Goldman DDS [address] [place] [address] Resident Dentistry 02/21/20 Mony Adler APRN-STEAM ROOM ATTENDANT [address] [place] [address] [place] [address] CLINIC LPN Anesthesiology 11/16/20 Moo Olsen DMD, MD [address] [place] [address] Physician Oral & Maxillofacial Surgery 08/20/24 documented as of this encounter
--- OUTSIDE RECORDS SUMMARY | 2025-02-09 07:15 | XMS_ITS | Encounter Summary ---
Author Organization [facility] Address [address] [place] [address] [place] [address] Care Team Providers Care Painting Machine Operator Name Role Phone Susi Rm DDS Unavailable [phone] Mony Adler MUSIC TEACHER-ARABIC TRANSLATOR Unavailable [phone] Moo Olsen DMD, MD Unavailable [phone] Encounter Details Date Type Department Care Team (Late st Contact Info) Description 10/07/2020 Prep for Surgery [facility] Dentistry [address] [place] [address] [phone] Abdoulaye Robison DDS [address] [place] [address] Social History Tobacco Use Types Packs/Day Years [...] on filedocumented in this encounter Care Teams Painting Machine Operator Relationship Specialty Start Date End Date Rm Goldman DDS [address] [place] [address] [phone] Resident Dentistry 02/21/20 Mony Adler APRN-ARABIC TRANSLATOR [address] [place] [address] [place], [place] [id number] EXECUTIVE KITCHEN MANAGER Anesthesiology 11/16/20 Moo Olsen DMD, MD [address] [place] [address] Physician Oral & Maxillofacial Surgery 08/20/24 documented as of this encounter
--- OUTSIDE RECORDS SUMMARY | 2025-02-09 07:15 | XMS_ITS | Encounter Summary ---
Author Organization [facility] Address [address] [facility] [place] [address] Care Team Providers Care It Portfolio Manager Name Role Phone Rm Goldman DDS Unavailable [phone] Mony Adler APPLIANCE SALES ASSOCIATE-SECURITY SHIFT MANAGER Unavailable Moo Olsen DMD, MD Unavailable [phone] Encounter Details Date Type Department Care Team (Late st Contact Info) Description 10/19/2020 Assessment/Treatme nt Report [facility] Dentistry [address] [place] [address] [phone] Hermelindo Anderson DDS [address] [place], [place] [phone] Social History Tobacco Use Types Packs/Day Years [...] on filedocumented in this encounter Care Teams It Portfolio Manager Relationship Specialty Start Date End Date Rm Goldman DDS [address] [place], [place] [phone] Resident Dentistry 02/21/20 Mony Adler APRN-SECURITY SHIFT MANAGER [address] [place], [place] [id number] TUBE PUSHER Anesthesiology 7/2/21 Moo Olsen DMD, MD [address] [place] [address] Physician Oral & Maxillofacial Surgery 08/20/24 documented as of this encounter
--- OUTSIDE RECORDS SUMMARY | 2025-02-09 07:15 | XMS_ITS | Encounter Summary ---
Author Organization [facility] Address [address] [facility] [place] [address] Care Team Providers Care Financial Associate Name Role Phone SusiRm KASSIDY Unavailable [phone] Mony Adler APRN-INVENTORY ADMINISTRATOR Unavailable [phone] Moo Olsen DMD, MD Unavailable [phone] Reason for Referral * Service Level Authorization (Routine) - Closed Specialty Diagnoses / Procedures Referred By Contac t Referred To Contact Anesthesiology Diagnoses Caries Fernando Kurtz DDS [address] [place] [address] Phone: tel: fax: [facility] PRE ADMISSION TESTING [address] [place] [address] Phone: tel: Referral ID Status Reason Start Date Expiration Date Visits Re quested Visits Authorized [id number] Closed 10/08/2023 10/07/2024 1 1 Scheduling Instructions Your surgical team will reach out to you to schedule a pre-admission testing appointment. Question Answer Reason for consult? Recommended PAT Risk Score Encounter Details Date Type Department Care Team (Late st Contact Info) Description 10/08/2023 Prep for Surgery [facility] [address] [place] [address] Mary Almaraz DDS [address] [place] [address] Social History Tobacco Use Types Packs/Day Years [...] of this encounter Plan of Treatment Scheduled Referrals Name Type Priority Associated Diagnoses Orde r Schedule PRE-ADMISSION TESTING CONSULT Referral Routine Caries Ordered: 10/08/2023 documented as of this encounter Visit Diagnoses Diagnosis Caries- Primary Unspecified dental caries documented in this encounter Care Teams Financial Associate Relationship Specialty Start Date End Date Rm Goldman DDS [address] [place] [address] Resident Dentistry 02/21/20 Mony Adler APRN-INVENTORY ADMINISTRATOR [address] [place] [address] SALON CUSTOMER EXPERIENCE SPECIALIST Anesthesiology 11/16/20 Moo Olsen DMD, MD [address] [place] [address] Physician Oral & Maxillofacial Surgery 08/20/24 documented as of this encounter
--- OUTSIDE RECORDS SUMMARY | 2025-02-09 07:15 | XMS_ITS | Encounter Summary ---
Author Organization [facility] Address [address] [facility] [place] [address] Care Team Providers Care Viscera Washer Name Role Phone Rm Goldman DDS Unavailable [phone] Mony Adler REFRIGERATION BRAZER/SOLDERER-STREET CONTRACTOR Unavailable Moo Olsen DMD, MD Unavailable Encounter Details Date Type Department Care Team (Late st Contact Info) Description 05/17/2020 Abstract PATIENT ACUITY SCORE Social History Tobacco [...] on filedocumented in this encounter Care Teams Viscera Washer Relationship Specialty Start Date End Date Rm Goldman DDS [address] [place] [address] Resident Dentistry 02/21/20 Mony Adler APRN-STREET CONTRACTOR [address] [place] [address] [place] [address] TOLL LINE INSPECTOR Anesthesiology 11/16/20 Moo Olsen DMD, MD [address] [place] [address] Physician Oral & Maxillofacial Surgery 08/20/24 documented as of this encounter
--- OUTSIDE RECORDS SUMMARY | 2025-02-09 07:16 | XMS_ITS | Encounter Summary ---
Author Organization [facility] Address [address] [place] [address] [place] [address] Care Team Providers Care Reel Operator Name Role Phone Rm Goldman DDS Unavailable [phone] Mony Adler STREETSWEEPER OPERATOR-BUSINESS APPLICATIONS SPECIALIST Unavailable [phone] Moo Olsen DMD, MD Unavailable [phone] Encounter Details Date Type Department Care Team (Late st Contact Info) Description 02/07/2019 Prep for Surgery [facility] Dentistry [address] [place] [address] [phone] Joanne Dasilva DDS [address] [place] [address] [place] [address] Social History Tobacco Use Types Packs/Day Years [...] caries documented in this encounter Care Teams Reel Operator Relationship Specialty Start Date End Date Rm Goldman DDS [address] [place] [address] Resident Dentistry 02/21/20 Mony Adler APRN-BUSINESS APPLICATIONS SPECIALIST [address] [place] [address] [place] [address] ACQUISITION MARKETING MANAGER Anesthesiology 11/16/20 Moo Olsen DMD, MD NPI: [id number] [address] [place], [place] [id number] Physician Oral & Maxillofacial Surgery 08/20/24 documented as of this encounter
--- OUTSIDE RECORDS SUMMARY | 2025-02-09 07:16 | XMS_ITS | Encounter Summary ---
Author Organization [facility] Address [address] [place] [address] [place] [address] Care Team Providers Care Igniter Capper Name Role Phone Rm Goldman DDS Unavailable [phone] Mony Adler MILLER APPRENTICE-LINING PRESSER Unavailable [phone] Moo Olsen DMD, MD Unavailable [phone] Encounter Details Date Type Department Care Team (Late st Contact Info) Description 02/09/2019 Prep for Surgery [facility] Dentistry [address] [place] [address] [phone] Joanne Dasilva DDS [address] [place] [address] [place] [address] Social History Tobacco Use Types Packs/Day Years [...] caries documented in this encounter Care Teams Igniter Capper Relationship Specialty Start Date End Date Rm Goldman DDS [address] [place] [address] Resident Dentistry 02/21/20 Mony Adler APRN-LINING PRESSER [address] [place] [address] [place] [address] PRACTICING UROLOGIST Anesthesiology 11/16/20 Moo Olsen DMD, MD NPI: [id number] [address] [place], [place] [id number] Physician Oral & Maxillofacial Surgery 08/20/24 documented as of this encounter
--- OUTSIDE RECORDS SUMMARY | 2025-02-09 07:16 | XMS_ITS | Clinical Summary ---
Author Organization [facility] Address [address] [place] [address] Care Team Providers Care Supervisor Model Making Name Role Phone Stef Argueta MD Unavailable [phone] Suzi Bates DO Unavailable [phone] Amy Farooq NP Unavailable [phone] Allergies Active Allergy Reactions Criticality Noted Date Comments Chloral Hydrate 12/25/2023 Diazepam 12/25/2023 Diphenhydramine 12/25/2023 Octacosanol Unknown 11/08/2010 Medications carBAMazepine (TEGretol) 200 MG tablet Active sennosides (Senokot) 8.6 MG tablet Active lurasidone (Latuda) 80 MG tablet Take 1 tablet by mouth in the evening. Take with meals 4 Active Linzess 290 MCG capsule Take 1 capsule by mouth At least 30 minutes before the first meal of the day on an empty stomach once a day. 4 Active naltrexone (Depade) 50 MG tablet Active montelukast (Singulair) 10 MG tablet Active acetaminophen (Tylenol) 325 MG tablet Active loratadine (Claritin) 10 MG tablet Active bisacodyl (Dulcolax) 10 MG suppository Active pregabalin (Lyrica) 75 MG capsule Active lamoTRIgine (LaMICtal) 100 MG tablet Active famotidine (Pepcid) 20 MG tablet Active Dextromethorphan -guaiFENesin (Mucus Relief DM) 30-600 MG tablet sustained-releas e 12 hour 4 Active alendronate (Fosamax) 35 MG tablet Take 1 tablet by mouth 1 (one) time per week In the morning, at least 30 min before first food, beverage, or medication of day Active levothyroxine (Synthroid, Levoxyl) 112 MCG tablet Active levothyroxine (Synthroid, Levoxyl) 75 MCG tablet Active busPIRone (Buspar) 15 MG tablet Active cabergoline (Dostinex) 0.5 MG tablet Active Calcium Carb-Cholecalcif deny (Oyster Shell Calcium w/D) 500-5 MG-MCG tablet 4 Active Vraylar 6 MG capsule 4 Active chlorhexidine (Peridex) 0.12 % solution Active clonazePAM (KlonoPIN) 0.5 MG tablet Active doxazosin (Cardura) 4 MG tablet Active levETIRAcetam (Keppra) 500 MG tablet Active medroxyPROGESTER one (Depo-Provera) 150 MG/ML injection Active metoprolol tartrate (Lopressor) 100 MG tablet Active ondansetron (Zofran) 4 MG tablet Active paliperidone (Invega) 3 MG 24 hr tablet Active pantoprazole (ProtoNix) 40 MG EC tablet 4 Active sertraline (Zoloft) 100 MG tablet Active traZODone (Desyrel) 100 MG tablet Active divalproex (Depakote ER) 500 MG 24 hr tablet Take 500 mg by mouth Daily Do not crush, chew, or split. Take one in the am and 1 1/2 at bedtime Active Active Problems Problem Noted Date Diagnosed Date Late effect of adverse effec t of drug, medical or biological substance 05/02/2009 Anorexia 03/16/2008 Weight loss 03/16/2008 Cerebral palsy 10/08/2007 Seizure disorder 10/08/2007 Mental impairment 10/08/2007 Overview (12/30/2023): Mental retardation Other bipolar disorder 10/08/2007 Other conduct disorders 10/08/2007 Immunizations Immunization Administration Dates Next Due DTP 07/29/1990, 8,1985,09/24,1985 HiB, unspecified 07/02/1987 Influenza Whole 03/13/2010,03/09/2008 Influenza, Unspecified 03/04/2023,03/05/2022 Influenza, injectable, quadrivalent 03/11/2017 Influenza, injectable, quadr ivalent, preservative free 03/13/2021,02/22/2020,03/11/2019,02/24,03/08/2015,03/23/2014 Influenza, seasonal, injectable 02/20/20 16,03/15/2013,03/10/2012,01/29 MMR 11/15/1986 Meningococcal MCV4P 10/01/2006 Novel [id number], preservative-free 04/04/2009 OPV 07/29/1990, 8,05/29/1987,06/28,1985 SARS-COV-2 (COVID-19) vaccin e, mRNA, spike protein, LNP, PF, adam-sucrose, 30 mcg/0.3 mL 03/04/2023 Td (adult), unspecified 09/02/2000 Tdap 08/14/2022,08/31/2012 Social History Tobacco Use Types Packs/Day Years Used Date Smoking Tobacco: Never Smokeless Tobacco: Never Tobacco Cessation:Counseling Given: Not Answered Comments Unknown Sex and Gender Information Value Date Recorded Sex Assigned at Not on file Legal Sex Female 6:35 PM EDT Gender Identity Not on file Sexual Orientation Not on file Last Filed Vital Signs Vital Sign Reading Time Taken Comments Blood Pressure 122/78 09/29/2024 10:46 AM EDT Pulse - - Temperature - - Respiratory Rate - - Oxygen Saturation - - Inhaled Oxygen Concentration - - Weight 65.8 kg (145 lb) 09/29/2024 10:46 AM EDT Height 147.3 cm (4' 10 ) 09/29/2024 10:46 AM EDT Body Mass Index 30.31 09/29/2024 10:46 AM EDT Plan of Treatment Health Maintenance Due Date Last Done Comments Pap Smear 2006 Cervical Cancer Screening 2015 HPV/Cotest 2015 Influenza Vaccine (#1) 2025 4, 03/04/2023, 03/05/2022, Additional history exists Insurance [address] [place] [address] MEDICAID [place] [address] [place] [address] Care Teams Supervisor Model Making Relationship Specialty Start Date End Date Amy Farooq NP PCP - FFS [facility] 05/18/24 Stef Argueta MD [address] [place] [address] Referring Physician Family Medicine 08/10/23 Suzi Bates DO [address] [place] [address] Referring Physician Neurology 08/10/23
--- OUTSIDE RECORDS SUMMARY | 2025-02-09 07:16 | XMS_ITS | Clinical Summary ---
Author Organization [facility] Address [address] [place] [address] Care Team Providers Care Master Control Technician Name Role Phone Chaim Restrepo DO Primary Care Provider [phone] Allergies Active Allergy Reactions Criticality Noted Date Comments Seasonal Allergies Unknown 11/08/2010 Medications benztropine 0.5 mg ORAL tablet Take 0.5 mg by mouth once daily. Active divalproex ER 500 mg ORAL 24 hr tablet Take 500 mg by mouth once daily. Active alendronate 35 mg ORAL tablet Take 35 mg by mouth once each week. Active CALCIUM POLYCARBOPHIL (FIBER-LAX ORAL) Take 1 capsule by mouth daily at bedtime. 4 Active Ferrous Sulfate 325 mg (65 mg iron) ORAL tablet Take 325 mg by mouth once daily. Active leveTIRAcetam 500 mg ORAL tablet Take 500 mg by mouth twice daily. Active loratadine 10 mg ORAL tablet Take 10 mg by mouth once daily. Active pregabalin (LYRICA) 75 mg ORAL capsule Take 75 mg by mouth three times daily. Active lamotrigine 100 mg ORAL tablet Take 100 mg by mouth twice daily. Active famotidine 20 mg ORAL tablet Take 20 mg by mouth once daily. Active naltrexone 50 mg ORAL tablet Take 100 mg by mouth twice daily. Active SENNOSIDES (SENNA-GEN ORAL) Take 2 tablets by mouth daily at bedtime. 2 tabs by mouth at bedtime 4 Active montelukast (SINGULAIR) 10 mg ORAL tablet Take 10 mg by mouth once daily. Active levothyroxine 50 mcg ORAL tablet Take 50 mcg by mouth once daily. Active Cholecalciferol, Vitamin D3, (VITAMIN D) 1,000 unit ORAL Cap Take 1,000 Units by mouth once daily. Active docusate sodium 100 mg ORAL capsule Take 200 mg by mouth three times daily. 4 Active acetaminophen 325 mg ORAL tablet Take 650 mg by mouth every 6 hours as needed. Active bisacodyl 10 mg RECTAL Supp 10 mg by RECTAL route once daily as needed. Active risperiDONE 1 mg tablet Take 1-1.5 mg by mouth three times daily. TAKE 1 MG TABLET AM, 1.5 MG TABLET AT NOON AND AT BEDTIME. Active divalproex DR 125 mg EC tablet Take 125 mg by mouth once daily. Active clonazePAM orally disintegrating 0.5 mg disintegrating tablet Take 0.25 mg by mouth twice daily as needed. Active CALCIUM CARBONATE/VITAMIN D3 (OYSTER SHELL + D3 ORAL) Take 1 tablet by mouth once daily. Active QUEtiapine 25 mg tablet Take 12.5 mg by mouth once daily. Active GUAIFENESIN/PSEUDOE PHEDRNE HCL (MUCINEX D ORAL) Take 1-2 tablets by mouth every 12 hours as needed. Active oxyCODONE immediate release (PERCOLONE) 5 mg immediate release tablet Take 1 tablet by mouth every 6 hours as needed. FOR PAIN. 30 tablet 0 4 Active diazepam (VALIUM) 5 mg tablet Take 0.5 tablets by mouth every 6 hours as needed. 30 tablet 0 4 Active fluticasone-sod chl-sod bicarb 50 mcg- 0.9 % ksps Use in the nose twice daily as needed. Active cholecalciferol (VITAMIN D) 1,000 unit tab tablet Take 1,000 Units by mouth once daily. Active clonazePAM (KLONOPIN) 0.5 mg tablet 5 8 Active CALCIUM CARBONATE (OYSTER SHELL CALCIUM 500 ORAL) Take 500 mg by mouth once daily. Active Active Problems Problem Noted Date Diagnosed Date Cerebral palsy 06/26/2015 Crouched gait 12/09/2010 Hamstring tightness 12/09/2010 Follow-up examination following surgery 10/05/19 03 Other specified infantile cerebral palsy 003 Family History Medical History Relation Comments hydrocephalus [Other] Other Relation Status Comments Other Social History Tobacco Use Types Packs/Day Years Used Date Smoking Tobacco: Never Smokeless Tobacco: Never Alcohol Use Standard Drinks/Week Comments No 0 (1 standard drink = 0.6 oz pur e alcohol) Area Deprivation Index Answer Date Donovan rded National Score (1-100), lower number is lower ri sk Not on file 04/23/2020 State Score (1-10), lower number is lower risk N ot on file 04/23/2020 Data from: https://www.neighborhoodatlas.medicine.[facility]/. 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 Not on file Not on file Not on file Last Filed Vital Signs Vital Sign Reading Time Taken Comments Blood Pressure 104/72 02/09/2014 1:45 PM EDT Pulse 94 02/09/2014 1:45 PM EDT Temperature 36 C (96.8 F) 02/09/2014 1:45 PM EDT Respiratory Rate 18 02/09/2014 1:45 PM EDT Oxygen Saturation 99% 02/09/2014 1:45 PM EDT Inhaled Oxygen Concentration - - Weight 71.8 kg (158 lb 4.6 oz) 02/09/2014 8:12 A M EDT Height 152.4 cm (5') 02/09/2014 8:12 AM EDT Body Mass Index 30.91 02/09/2014 8:12 AM EDT Plan of Treatment Health Maintenance Due Date Last Done Comments Anxiety Screening 2003 Depression Screening 2003 HIV Screening 2003 Hepatitis C Screening 2003 Hepatitis B Vaccine (1 of 3 - 19+ 3-dose series) 2004 Cervical Cancer Screening 2006 HPV Vaccine (1 - 3-dose SCDM series) 2012 DTaP,Tdap,Td Vaccine (7 - Td or Tdap) 08/31/2022 08/31/2012, 09/02/2000, 07/29/1990, Additional history exists Influenza Vaccine (#1) 2025 8, 03/11/2017, 02/20/2016, Additional history exists Insurance [address] [place] [address] [place]ICAID [place] Advance Directives Documents on File Type Date Recorded Patient Emergency Dispatcher Expl anation Advance Directive(s) 01/24/2014 2:15 PM Care Teams Master Control Technician Relationship Specialty Start Date End Date Chaim Restrepo DO [address] [place] [address] PCP - General Family Medicine 05/21/23
--- OUTSIDE RECORDS SUMMARY | 2025-02-09 07:16 | XMS_ITS | CCD ---
Author Organization [facility] Care Team Providers Care [place] Room Worker Name Role Phone Rm Goldman DDS [...] Unavailable ARGUETA, DR STEF Whaley Attending Unavailable ARGUETASTEF Primary Care Physician Mocarlyleli, Mohamad A. Admitting Unavailable Mouchli, Mohamad A. Attending Unavailable Mouchli, Mohamad A. Referring Unavailable Mouchli, Mohamad A. Admitting Unavailable Mouchli, Mohamad A. Attending Unavailable Mouchli, Mohamad A. Referring Unavailable ARGUETA, STEF Admitting Unavailable ARGUETASTEF Attending Unavailable ARGUETA, STEF Attending Unavailable ARGUETA, STEF Admitting Unavailable Mouchli, Mohamad A. Attending Unavailable Rm Goldman DDS Unavailable Vitor SPARROW Mony Unavailable Stef Argueta MD Unavailable [phone] Suzi Bates DO Unavailable Oseas ATWOOD, Amy Unavailable Oseas TRAIN STATION SERVER, Amy Unavailable AMY FAROOQ Attending Unavailable AMY FAROOQ Attending Unavailable AMY FAROOQ Attending Unavailable Pretty NAQVI MD, Justin Unavailable CLEMOW, MOO Admitting Unavailable CLEMOAlexia, MOO Attending Unavailable PROVIDER, UNKNOWN Admitting Unavailable RADHA EVANS Attending Unavailable PROVIDER, UNKNOWN Admitting Unavailable CLEMOWMOO Attending Unavailable CLEMOMOO Hale Attending Unavailable PROVIDER, UNKNOWN Admitting Unavailable CLEMOMOO Hale Referring Unavailable PROVIDER, UNKNOWN Admitting Unavailable PROVIDER, UNKNOWN Attending Unavailable Allergies Allergy Classification Reported Allergen(s) Allergy Type Date of Onset Reaction(s) Facility (1 source) No Known Medication Allergies; Translations: [No Known Medication Allergies] Propensity to adverse reactions (disorder) [facility] Repository (20 sources) Diazepam; Translations: [DIAZEPAM] Propensity to adverse reactions to drug 4 [facility] (20 sources) diphenhydrAMINE ; Translations: [DIPHENHYDRAMIN E] Drug Allergy 4 [facility] (20 sources) trichloroacetal dehyde; Translations: [CHLORAL HYDRATE] Drug Allergy 4 [facility] (20 sources) Octacosanol; Translations: [OCTACOSANOL] Drug Intolerance 1 Unknown [facility] Medications Current Medications Medication Drug Class(es) Dates Sig (Normalized) Sig (Original) acetaminophen 500 mg oral tablet (12 sources) Start: 01-18-2025 take 1 tablet by mouth every four hours as needed for pain acetaminophen (TYLENOL) 500 MG tablet Take 1 Tablet by mouth every 4 hours as needed for Pain or Fever. 30 Tablet 01/18/2025 Active Start: 01-18-2025 End: 01-18-2025 650 mg, Oral, ONCE PRN, Star ting on Thu01/18/25 at 1125, Until Thu01/18/25 at 1724, Mild Pain (pain score 1,2,3), PACU Now acetaminophen (T ylenol) 325 MG tablet Active alendronic acid 35 [...] suppository Active take 10 mg rectal ro jt once daily as needed bisacodyl (Dulcolax) 10 MG suppository 1 0 mg by RECTAL route once daily as needed. Active busPIRone hydrochloride 15 mg oral tablet (15 sources) End: 01-08-2024 busPIRone (Buspar) 15 MG tablet Active cabergoline 0.5 mg oral tablet (15 sources) Ergot Derivative End: 01-08-2024 cabergoline (Dostinex) 0.5 MG tablet Active Calcium Carbonate (20 sources) Start: 09-10-2023 Maalox Antacid Barrier mg, Chewed, Daily, Refills(s) 0 Start Date: 09/10/23 Status: Ordered Oyster Shell 500 MG TABS Take by mouth. Active calcium carbonate 1250 mg / cholecalciferol 200 unt oral tablet (20 sources) Vitamin D Start: 12-07-2023 Calcium Carb-Cholecalciferol (Oyster Shell Calcium w/D) 500-5 MG-MCG TABS 12/07/2023 Active carBAMazepine (20 sources) Mood Stabilizer Start: 09-10-2023 CARBAMAZEPINE ORAL Take by mouth. 09/10/2023 Suspended Start: 09-10-2023 CARBAMAZEPINE ORAL Take by mouth. 09/10/2023 Active Start: 09-10-2023 carbamazepine Oral, TID, Refills(s) 0, Seizure Start Date: 09/10/23 Status: Ordered Start: 09-10-2023 carbamazepine Refills(s) 0 Start Date: 09/10/23 Status: Ordered carBAMazepine (T EGretol) 200 MG tablet Active End: 01-08-2024 carBAMazepine (TEGretol) 200 MG tablet Take 100 mg by mouth 3 times daily. Active cariprazine 6 mg oral capsule (20 sources) Atypical Antipsychotic Start: 10-22-2023 Cariprazine HCl (Vraylar) 6 MG CAPS capsule 10/22/2023 Active chlorhexidine gluconate 1.2 mg/ml mouthwash (20 sources) Start: 01-18-2025 take 15 mL by mouth twice daily chlorhexidine (Peridex) 0.12 % oral solution Take 15 mL by mouth 2 times daily. 480 mL 1 01/18/2025 Active Start: 01-08-2024 End: 01-08-2024 take 15 mL [...] 0.12 % solution Active cholecalciferol 0.025 mg ora l capsule (20 sources) Vitamin D Start: 07-07-2024 D3-1000 25 MCG (1000 UT) CAPS capsule 07/07/2024 Active End: 07-13-2024 Cholecalciferol (VITAMIN D) 1000 units TABS Take by mouth. 07/13/2024 Discontinued clonazePAM 0.5 mg oral tablet (15 sources) Benzodiazepine End: 01-08-2024 clonazePAM (KlonoPIN) 0.5 MG tablet Active cloNIDine hydrochloride 0.1 mg oral tablet (20 sources) Central alpha-2 Adrenergic Agonist take 1 tablet by mouth twice daily cloNIDine (CATAPRES) 0.1 MG tablet Take 0.1 mg by mouth 2 times daily. Active cyproheptadine hydrochloride 4 mg oral tablet (15 sources) take 1 tablet by mouth at bedtime cyproheptadine (PERIACTIN) 4 MG tablet Take 4 mg by mouth at bedtime. Active 12 hr dextromethorphan hydrobromide 30 mg / guaiFENesin 600 mg extended release oral tablet (20 sources) Uncompetitive V-xvfnvk-Q-aspartat e Receptor Antagonist, Sigma-1 Agonist Start: 07-28-2023 guaifenesin-dextro methorphan (MUCINEX DM) 30-600 MG tablet 07/28/2023 Active Start: 03-12-2024 Dextromethorph an-guaiFENesin (Mucus Relief DM) 30-600 MG tablet sustained-release 12 hour 07/28/2023 Active doxazosin 4 mg oral tablet (15 sources) alpha-Adrenergic Gaby End: 01-08-2024 doxazosin (Cardura) 4 MG tablet Active famotidine 20 mg oral tablet (20 sources) Histamine-2 Receptor Antagonist Start: 09-10-2023 take 20 mg by mouth once daily [...] lls(s) 0 Start Date: 11/29/09 Status: Ordered 1 ml HYDROmorphone hydrochloride 1 mg/ml cartridge (2 sources) Opioid Agonist Start: 01-18-2025 End: 01-18-2025 0.2 mg, Intravenous, PACU EVERY 15 MIN PRN X 4 DOSES, 4 doses, Starting on Thu01/18/25 at 1125, Until Thu01/18/25 at 2359, Moderate Pain (pain score 4,5,6), PACU Now Start: 01-18-2025 End: 01-18-2025 0.5 mg, Intravenous, PACU EV ANTOINE 15 MIN PRN X 4 DOSES, 4 doses, Starting on Thu01/18/25 at 1125, Until Thu01/18/25 at 2359, Severe Pain (pain score 7,8,9,10), PACU Now ibuprofen 600 mg oral tablet (2 sources) Nonsteroidal Anti-inflammatory Drug Start: 01-18-2025 take 1 tablet by mouth every six hours as needed for pain ibuprofen (MOTRIN) 600 MG tablet Take 1 Tablet by mouth every 6 hours as needed for Pain. 30 Tablet 1 01/18/2025 Active lamoTRIgine 100 mg oral tablet (17 sources) [...] Active levothyroxine sodium 0.075 mg oral tablet (20 sources) l-Thyroxine take 1 tablet by mouth once daily in the evening levothyroxine (SYNTHROID) 75 MCG tablet Take 75 mcg by mouth daily. Take at 4 pm Active End: 01-08-2024 levothyroxine (Synthroid, Le voxyl) 112 MCG tablet Active linaclotide 0.29 mg oral capsule (20 sources) Guanylate Cyclase-C Agonist Start: 11-17-2023 take 1 capsule by mouth once daily Linzess 290 MCG CAPS capsule Take 290 mcg by mouth daily. 06/27/2024 Active Start: 09-10-2023 take 1 ug by mouth once daily Linzess 290 mcg oral capsule mcg cap(s), Oral, Daily, Refills(s) 0 Start Date: 09/10/23 Status: Ordered Start: 10-17-2020 End: 07-13-2024 take 1 capsule by mouth once daily Linzess 145 MCG CAPS capsule Take 145 mcg by mouth daily. 10/17/2020 07/13/2024 Discontinued Loratadine (20 sources) Start: 11-29-2009 loratadine 10 mg, Refills(s) 0 Start Date: 11/29/09 Status: Ordered take 1 tablet by mouth once lashell y loratadine (CLARITIN) 10 MG tablet Take 10 mg by mouth daily. Active lurasidone hydrochloride 80 mg oral tablet (20 sources) Atypical Antipsychotic Start: 12-07-2023 lurasid one (LATUDA) 80 MG tablet Take 1 Tablet by mouth. 12/07/2023 Active Start: 09-10-2023 lurasidone Ora l, Daily, Refills(s) 0 Start Date: 09/10/23 Status: Ordered End: 07-13-2024 take 1 tablet by mouth twice daily lurasidone (LATUDA) 40 MG tablet Take 40 mg by mouth 2 times a day. 07/13/2024 Discontinued 1 ml medroxyPROGESTERone prashant mcrae 150 mg/ml injection (20 sources) Progestin medroxyPROGESTER one (Depo-Provera) 150 MG/ML injection Inject 150 mg into the muscle once. Active medroxyPROGESTER one (Depo-Provera) 150 MG/ML injection Active medroxyPROGESTER one (Depo-Provera) 150 MG/ML injection Inject 150 mg into the muscle once. Active 1 ml meperidine hydrochloride 25 mg/ml cartridge (1 source) Opioid Agonist Start: 01-18-2025 End: 01-18-2025 25 mg, Intravenous, PACU EVERY 15 MIN PRN X 2 DOSES, Starting on Thu01/18/25 at 1125, Until Thu01/18/25 at 1724, Shivering, PACU Now metoprolol tartrate 100 mg oral tablet (15 sources) beta-Adrenergic Gaby End: 01-08-2024 metoprolol tartrate (Lopressor) 100 MG tablet Active montelukast (20 sources) Leukotriene Receptor Antagonist Start: 09-10-2023 montelukast Daily, Refills(s) 0 Start Date: 09/10/23 Status: Ordered take 1 tablet by mouth once lashell y montelukast (SINGULAIR) 10 MG tablet Take 10 mg by mouth daily. Active Naltrexone (20 sources) Opioid Antagonist Start: 11-29-2009 naltrexone R efills(s) 0 Start Date: 11/29/09 Status: Ordered take 2 tablets by mouth twice da dany naltrexone 50 MG tablet Indications: take 2 tablets twice a day Take 50 mg by mouth daily Indications: take 2 tablets twice a day. Active naltrexone (Depa de) 50 MG tablet Active 2 ml ondansetron 2 mg/ml injection (20 sources) Serotonin-3 Receptor Antagonist Start: 01-18-2025 End: 01-18-2025 take 4 mg intravenously once as needed for nausea 4 mg, Intravenous, PACU ONCE PRN, Starting on Thu01/18/25 at 1125, Until Thu01/18/25 at 1724, Nausea, Vomiting, PACU Now Start: 01-08-2024 End: 01-08-2024 take 4 mg [...] 12 hours as needed for Nausea. Active oxyCODONE hydrochloride 5 mg oral tablet (1 source) Opioid Agonist Start: 01-18-2025 10 mg, Oral, P RN, 1 dose, Starting on Thu01/18/25 at 1125, Until Discontinued, Moderate Pain (pain score 4,5,6), PACU Now 24 hr paliperidone 3 mg [...] pantoprazole 40 mg delayed release oral tablet (20 sources) Proton Pump Inhibitor Start: 12-07-2023 pantoprazole (PROTONIX) 40 MG tablet 12/07/2023 Active Start: 09-10-2023 pantoprazole 4 0 mg, Oral, Refills(s) 0, Control of stomach acid Start Date: 09/10/23 Status: Ordered Start: 09-10-2023 pantoprazole R efills(s) 0 Start Date: 09/10/23 Status: Ordered End: 07-13-2024 take 40 mg by mouth once daily pantoprazole (Protonix) 40 MG PACK oral packet Take 40 mg by mouth daily. 07/13/2024 Discontinued pregabalin (20 sources) Start: 09-10-2023 pregabalin Ora l, TID, Refills(s) 0, Neuropathy Start Date: 09/10/23 Status: Ordered Start: 09-10-2023 pregabalin Ora l, Refills(s) 0 Start Date: 09/10/23 Status: Ordered take 1 capsule by mo uth three times daily pregabalin (LYRICA) 75 MG capsule Take 75 mg by mouth 3 times daily. Active Promethazine (20 sources) Phenothiazine Start: 09-10-2023 Promethazine H Cl (PHENERGAN INJ) Take by mouth. 09/10/2023 Suspended Start: 09-10-2023 Promethazine H Cl (PHENERGAN INJ) Take by mouth. 09/10/2023 Active Start: 09-10-2023 Phenergan Oral , PRN as needed for nausea/vomiting, Refills(s) 0 Start Date: 09/10/23 Status: Ordered Start: 09-10-2023 Phenergan Refi lls(s) 0 Start Date: 09/10/23 Status: Ordered risperiDONE 3 mg oral tablet (20 sources) Atypical Antipsychotic Start: 07-07-2024 risperi DONE (RISPERDAL) 3 MG tablet 07/07/2024 Active Start: 11-29-2009 risperidone Or al, BID, Refills(s) 0 Start Date: 11/29/09 Status: [...] (Discontinued by another Health Care Provider) sennosides, LONGTERM (20 sources) Start: 09-10-2023 senna Oral, BI D, Refills(s) 0, Constipation Start Date: 09/10/23 Status: Ordered Start: 09-10-2023 senna Refills( s) 0 Start Date: 09/10/23 Status: Ordered take 1 tablet by erica th once daily senna (SENNA-TABS) 8.6 MG TABS tablet Indications: daily at 0800 and 2000 Take 1 Tablet by mouth Indications: daily at 0800 and 2000. Active sertraline 100 mg oral tablet (15 sources) Serotonin Reuptake Inhibitor End: 01-08-2024 sertraline (Zoloft) 100 MG tablet Active traZODone hydrochloride 100 mg oral tablet (15 sources) Serotonin Reuptake Inhibitor End: 01-08-2024 traZODone (Desyrel) 100 MG tablet Active 24 hr divalproex sodium 250 mg extended release oral tablet (20 sources) Mood Stabilizer, Anti-epileptic Agent Start: 07-07-2024 divalproex ER (DEPAKOTE ER) 250 MG ER tablet at bedtime. 07/07/2024 Active Start: 07-07-2024 divalproex ER (DEPAKOTE ER) 500 MG ER tablet 07/07/2024 Active Start: 11-29-2009 Depakote Oral, BID, Refills(s) 0, Seizure Start Date: 11/29/09 Status: Ordered Start: 11-29-2009 Depakote Oral, TID, Refills(s) 0 Start Date: 11/29/09 Status: Ordered End: 01-05-2024 take 2 capsules by mouth [...] 2 tab hs Active VITAMIN D ORAL (20 sources) take 1000 [IU] by mo uth once daily VITAMIN D ORAL Take 1,000 Units by mouth daily. Suspended take 1000 [IU] by mouth once mackenzie [...] / sodium lactate 0.028 meq/ml injectable solution (3 sources) Start: 01-18-2025 Intravenous, at 75 mL/hr, CONTINUOUS, Starting on Thu01/18/25 at 1230, Until Discontinued Start: 01-08-2024 Intravenous, a t 125 mL/hr, CONTINUOUS, Starting on Thu01/08/24 at [...] 1 ml naloxone hydrochloride 0.4 mg/ml injection (2 sources) Opioid Antagonist Start: 01-18-2025 0.4 mg, Intravenous, PRN, Starting on Thu01/18/25 at 1125, Until Discontinued, Respiratory Rate Less Than 8 for adults and less than 12 for Peds or for suspected overdose, PACU Now Start: 01-08-2024 0.4 mg, Intrav enous Push, PRN, Starting on Thu01/08/24 at 1128, Until Discontinued, Respiratory Rate Less Than 8 for adults and less than 12 for Peds or for suspected overdose, PACU Now 20 ml sodium chloride 9 mg/m l injection (2 sources) Start: 01-18-2025 3 mL, Intraven ous, PRN, Starting on 9/3/25 at 1125, Until Discontinued, For medication administration and blood draw, PACU Now Start: 01-08-2024 3 mL, Intraven ous Push, PRN, Starting on Thu01/08/24 at 1128, Until Discontinued, For medication administration and blood draw, PACU Now Problems Active Problems Problem Classification Problem Date Documented Da te Episodic/Chronic Attention-deficit, conduct, and disruptive behavior disorders (20 sources) Disruptive behavior disorder; Translations: [Conduct disorder, unspecified] Onset: 07-13-2024 07-29-2013 Chronic Attention-deficit, conduct, and disruptive behavior [...] usually diagnosed in infancy, childhood, or adolescence (20 sources) Autism spectrum disorder; Translations: [Autistic disorder] Onset: 07-13-2024 07-29-2013 Chronic Epilepsy; convulsions (20 sources) Epilepsy, unspecified, not intractable, without status epilepticus; Translations: [Seizure disorder] Onset: 10-08-2007 Chronic Epilepsy; convulsions (5 sources) Seizure disorder 07-29-2013 Episodic Impulse control disorders, NEC (20 sources) Impulse control disorder; Translations: [Impulse disorder, unspecified] Onset: 07-13-2024 07-29-2013 Chronic Mood disorders (20 sources) Bipolar disorder, unspecified; Translations: [Bipolar disorder] Onset: 10-08-2007 12-30-2023 Chronic Nausea and vomiting (1 source) Nausea and vomiting; Translations: [Nausea with vomiting, unspecified] Onset: 09-10-2023 Episodic Open wounds of extremities (4 sources) Unspecified open wound, left foot, initial encounter; Translations: [UNS OPEN WOUND LEFT FOOT INITIAL] Onset: 08-19-2022 Episodic Osteoporosis (20 sources) Osteoporosis; Translations: [Age-related osteoporosis without current pathological fracture] Onset: 07-13-2024 07-29-2013 Chronic Other aftercare (5 sources) 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 operator (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; Translations: [OTH [facility] CURRENT DRUG THERAPY] Onset: 05-03-2022 Episodic Other gastrointestinal disorders (5 sources) Constipation 07-29-2013 Episodic Other gastrointestinal disorders (1 source) Other constipation; Translations: [Other constipation] Onset: 09-10-2023 Episodic Other nutritional; endocrine; and metabolic disorders (4 sources) Body mass index 30+ - obesity; Translations: [Body mass index (BMI) 31.0-31.9, adult] 12-26-2023 Chronic Other nutritional; endocrine; and metabolic disorders (1 source) Body mass index (BMI) 31.0-31.9, adult; Translations: [Body mass index (BMI) 31.0-31.9, adult] Onset: 07-13-2024 Chronic Other nutritional; endocrine; and metabolic disorders (1 source) Abnormal weight loss; Translations: [Abnormal weight loss] Onset: 09-10-2023 Episodic Other upper respiratory disease (5 sources) Seasonal allergy 11-29-2009 Chronic Paralysis (20 sources) Spastic cerebral palsy; 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] Onset: 06-17-2002 02-03-2019 Chronic Residual codes; unclassified (1 source) Early satiety; Translations: [Early satiety] Onset: 09-10-2023 Episodic Thyroid disorders (18 sources) Hypothyroidism, unspecified; Translations: [Hypothyroidism] Onset: 09-22-2022 07-13-2024 Chronic Unclassified (5 sources) Bipolar (qualifier value) 08-26-2010 Past or Other Problems Problem Classification Problem Date Documented Date Episodic/Chronic E Codes: Adverse effects of medical drugs (9 sources) Sequela of disorder; Translations: [Adverse effect of unspecified drugs, medicaments and biological substances, sequela] Onset: 05-02-2009 12-30-2023 Episodic Other aftercare (20 sources) Surgical follow-up; Translations: [Encounter for follow-up examination after completed treatment for conditions other than malignant neoplasm] Onset: 10-04-2002 07-22-2022 Episodic Other connective tissue disease (20 sources) Finding of thigh; Translations: [Other specified disorders of muscle] Onset: 12-09-2010 07-22-2022 Episodic Other nervous system disorders (20 sources) Two Strike gait; Translations: [Other abnormalities of gait and mobility] Onset: 12-09-2010 07-22-2022 Episodic Other nutritional; endocrine; and metabolic disorders (20 sources) Loss of appetite; Translations: [Anorexia] Onset: [...] Electrocardiogram abnormal; Translations: [Abnormal electrocardiogram [ECG] [EKG]] 12-28-2023 Episodic Results Test Name Value Interpretation Reference Range Facility Progress Noteson 01-25-2025 Insulation Estimator Authentication Interface Message Text [facility] FOLLOW UP VISIT Chief Complaint: Pt was contacted via telephone for follow up. History of present illness: 39 yrs old White female 1 week s/p extraction of #12, 13, 14 Patient's custodial and patient's mother was contacted separately. Voicemail left with call back number since the call was not answered. Plan: - Reaching out to patient's custodial/ mother for evaluating patient's post-op course Normal [facility] Anesthesia Postprocedure Felicia luationon 01-18-2025 Insulation Estimator Authentication Interface Message Text Anesthesia Postoperative Assessment: Vital Signs (most recent): BP 122/91 (BP Location: left arm) Pulse 74 Temp 36.1 ???C (97 ???F) (Temporal) Resp 14 Ht 4' 10 (1.473 m) Wt 146 lb (66.2 kg) LMP 01/12/2025 (Approximate) SpO2 97% BMI 30.51 kg/m??? Anesthesia Post Evaluation Level of consciousness: awake Post-procedure exam normal. Body temperature, hydration status, PONV and pain evaluated and addressed. Pain management: adequate Hydration status: normal PONV:No nausea/vomiting reported Cardiopulmonary status stable Respiratory status: acceptable Cardiovascular status: acceptable ANESTHESIA NOTABLE EVENTS: No notable events documented. Normal [facility] Anesthesia Preprocedure Eval uationon 01-18-2025 Insulation Estimator Authentication Interface Message Text ASA: 3 No [...] Surgical risk: intermediate; Cardiac condition: no apparent (-) CHF ECG reviewed Comment: - EKG 12/25/2023: Normal sinus rhythm. Nonspecific T wave abnormality. Abnormal ECG. No previous ECGs available Confirmed by LORENZA PARKS ([id number]) on 12/28/2023 8:11:02 PM GI/Hepatic/Renal Comment: - S/P cholecystectomy 2009 Heme/Other - negative ROS Other ROS: Vee Sarabia is 39 year old female here for Procedure(s): EXTRACTION, TEETH: #12,#13,#14 Patient Active Problem List: Cerebral palsy (HCC) [G80.9] Dental caries [K02.9] Dental decay [K02.9] Hamstring tightness [M62.89] Examination following surgery [Z09] Crouched gait [R26.89] Caries [K02.9] Anorexia [R63.0] Disruptive behavior disorder [F91.9] Impulse control disorder [F63.9] Osteoporosis [M81.0] Other bipolar disorder ([facility]) [F31.89] Autism spectrum disorder ([facility]) [F84.0] Severe intellectual disability with intelligence quotient 20 to 34 [F72] Seizure disorder ([facility]) [G40.909] Hypothyroidism, unspecified [E03.9] Epilepsy, unspecified, not intractable, without status epilepticus ([facility]) [G40.909] Bipolar 1 disorder ([facility]) [F31.9] 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 [K02.9] Allergies: -- Benadryl [Diphenhydramine] -- Chloral Hydrate -- Octacosanol -- Other Reaction(s): Unknown -- Valium [Diazepam] Physical Exam Airway Mallampati: III TM distance: Adequate Micrognathia: Not present Jaw opening: Adequate Neck flexion: Adequate Dental PE (+) intact Pulmonary - pulmonary exam normal Comment: Chest clear to auscultation bilaterally Cardiovascular - cardiovascular exam normal Comment: RRR with S1S2; no murmurs, gallops, or rubs Neuro - neurological exam normal Disoriented and motor deficit Comment: Awake, alert, oriented, No motor deficits and sensation grossly intact Plan Anesthesia plan: general; (ETT) Anesthesia risks / alternatives discussed pre-op Questions answered / anesthesia plan accepted Past medical history, surgical history, allergies, and medications reviewed. Pertinent laboratory tests, EKG, imaging, and consults reviewed and I have personally seen and evaluated the patient, repeating michelle portions of the history and physical examination. Attestation: Anesthesia options were discussed with the patient and/or legal lifeline representatives. The risks, benefits and alternatives were reviewed. Questions regarding anesthesia were answered. Patient and/or legal lifeline representatives knows such anesthetics and procedures may be performed by Resident physicians, Certified Anesthesiologist Assistants, or Certified Nurse Anesthetists under the supervision of a physician. The patient /or the patient's legal lifeline representatives agree with the plan for anesthesia. Comment: Anesthesia consent scanned into [employer]. [employer] Normal [facility] Anesthesia Transfer Of Careo n 01-18-2025 Insulation Estimator Authentication Interface Message Text Patient taken to PACU. Patient was awake, comfortable, and stable on arrival. Anesthesia Transfer of Care Note Past Medical History: Medical History[1] Sleep Apnea/Positive STOP-BANG: No Problem List: Problem List[2] Past Surgical History: Review of patient's past surgical history indicates: CHOLECYSTECTOMY (2008) OSH H+P 01/25/19 DENTAL RESTORATIONS (02/11/2019) Procedure: DENTAL RESTORATIONS; Surgeon: Fernando Kurtz DDS; Location: [facility] [place]; Service: Dental DENTAL RESTORATIONS (11/05/2020) Procedure: DENTAL RESTORATIONS; Surgeon: Dru Friedman DDS; Location: [facility]; Service: Dental DENTAL RESTORATIONS (01/08/2024) Procedure: DENTAL RESTORATIONS; Surgeon: Stacie Torres DMD; Location: [facility] [place]; Service: Dental Allergies: Benadryl [diphenhydramine], Chloral hydrate, Octacosanol, and Valium [diazepam] Basic Operating Room Facts: Surgeon(s): Moo Schilling DMD, MD Anesthesiologist: Ryan Kc MD CAA: Marybeth Gabriel CAA Anesthesia Student: Monique Qureshi EXTRACTION, TEETH: #12,#13,#14 (Left: Mouth) Intraoperative Events: No acute event ASA: 3 EBL: Not documented Urine Not documented Lactated Ringers and NaCl 0.9%: Fluid Totals (Filter: LR and NaCl 0.9% Medications Shown) Medication Calculated Total Lactated Ringers 0 mL / 1 bag Cell Saver: Not documented Blood Volume Values: Blood Products None MTP Blood: MTP PRBC: Not documented MTP FFP: Not documented MTP PLT: Not documented MTP Cryo: Not documented MTP Whole Blood: Not documented Current Vasoactive Medications: {Vasoactive Medications: None Lines, Drains, Airways Peripheral IV Access: 01/18/25 1204 22 gauge Posterior;Right Hand (Active) Site Assessment Dressing intact;WNL 01/18/25 1213 Infusion Status Port #1 Infusing 01/18/25 1213 Airway Insertion Details [REMOVED] Advanced Airway: LMA #4 (Removed) 01/18/25 1218 Pre-Oxygenation/ Induction: Mask Rapid Sequence Induction?: Mask Ventilation: Easy Blade Type: Blade Size: Visualization: Airway Type: LMA Airway Size: #4 Post Insertion Assessment: Confirmation: Equal bilateral breath sounds, CO2 confirmed # Attempts >1: Special Equipment: Present on Admission?: Previously Removed / Not Present: Removal Reason: Not Removed at Discharge: Removed 01/18/25 1303 All non-working IVs have been removed: N/A [...] of understanding of the report was received. LUIS ANTONIO Zapien [1] Past Medical History: Diagnosis Date ADHD (attention deficit hyperactivity disorder) OSH H+P 01/25/19 Anemia OSH H+P 01/25/19 Autism (HCC) OSH H+P 01/25/19 Autism spectrum disorder (HCC) 07/13/2024 Cerebral palsy (HCC) Mild, OSH H+P 01/25/19 Cholelithiasis OSH H+P 01/25/19 Chronic constipation OSH H+P 01/25/19 Disruptive behavior disorder OSH H+P 01/25/19 Dyspepsia OSH H+P 01/25/19 Hypothyroid OSH H+P 01/25/19 Hypothyroidism, unspecified 09/22/2022 Impulse control disorder OSH H+P 01/25/19 Intermittent explosive disorder OSH H+P 01/25/19 Myopia OSH H+P 01/25/19 Osteopenia OSH H+P 01/25/19 Other bipolar disorder ([facility]) 10/08/2007 Pervasive developmental disorder (HCC) OSH H+P 01/25/19 Seasonal allergies OSH H+P 01/25/19 Seizure disorder ([facility]) OSH H+P 01/25/19 Severe intellectual disability OSH H+P 01/25/19 [2] Patient Active Problem List Diagnosis Code Cerebral palsy (HCC) G80.9 Dental caries K02.9 Dental decay K02.9 Hamstring tightness M62.89 Examination following surgery Z09 Crouched gait R26.89 Caries K02.9 Anorexia R63.0 Disruptive behavior disorder F91.9 Impulse control disorder F63.9 Osteoporosis M81.0 Other bipolar disorder ([facility]) F31.89 Autism spectrum disorder (HCC) F84.0 Severe intellectual disability with intelligence quotient 20 to 34 F72 Seizure disorder ([facility]) G40.909 Hypothyroidism, unspecified E03.9 Epilepsy, unspecified, not intractable, without status epilepticus ([facility]) G40.909 Bipolar 1 disorder ([facility]) F31.9 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 K02.9 Normal [facility] 01-18-2025 Insulation Estimator Authentication Interface Message Text [facility] 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 PREOPERATIVE DIAGNOSIS: 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 [[id number]] ? POSTOPERATIVE DIAGNOSIS: 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 [[id number]] OPERATION: Extraction of erupted teeth #12, 13, 14 ? ATTENDING SURGEON: Dr. Moo Schilling ? FIRST SURGEON: Dr. Moo Schilling ? SECOND SURGEON: Robin Roque ? ANESTHESIA: General anesthesia via Laryngeal Mask Airway supplemented with 10 mL of a 50/50 mixture of 1% lidocaine with 1:100,000 epinephrine and 0.5% Marcaine. ? SPECIMENS: N/A ? ESTIMATED BLOOD LOSS: 5 mL. ? IV FLUIDS: 1000 mL. ? FINDINGS: Caries, non-restorable teeth ? DESCRIPTION OF OPERATION: The patient was taken to the operating room on a cart and transferred onto the operating room table under [employer] own power. The patient was then placed in the supine position. A time-out was conducted to confirm correct patient and procedure to be performed. Anesthesia team, Surgical staff and Nursing team all agreed on correct patient and laterality of the procedure. At this time care of the patient was transferred over to the Anesthesia Service for induction of general anesthetic and intubation. The patient was intubated via Laryngeal Mask Airway. The LMA was secured and care of the patient was transferred back to the Oral Maxillofacial Surgery service for continuation of the procedure. The patient was draped in usual sterile fashion and the oral cavity was suctioned clear and A throat pack placed shallowly in the oropharynx. Simple Tooth Extraction Admin 10 cc of 50/50 mixture 1% lidocaine with 1:100k epi and 0.5% marcaine via local infiltration on buccal and palatal aspect of teeth #12, 13, 14. #9 periosteal elevator used to sharply incisive PDL and reflect mucoperiosteal cuff around #12, 13, 14. Teeth #12, 13, 13 elevated and extracted with forceps. No root tips remaining or sinus exposure detected. The sockets were irrigated with sterile saline. Gel foam packed into sockets. Mucogingival wound closure utilized 3-0 Chromic in uninterrupted fashion. The oral cavity was suctioned clear, gauze throat pack removed. Surgical site hemostatic after firm digital pressure on site for 5-10 minutes. Adjacent teeth notably carious - though non-mobile. After wound closure was accomplished care of the patient was transferred back to the Anesthesia Service for emergence from the general anesthetic and extubation. The patient was extubated without incidence and transferred back to a cart where he was taken to the Post Anesthesia Care Unit for further monitoring. The patient was stable during the entire procedure. There were no complications. Dr. Schilling was present for all critical parts of the procedure. ? ? ? Alfredo Mariee DDS OM PGY-3 I was personally present for the michelle portions of the procedure. Moo Schilling DMD, Normal [facility] URINE HCG-IN OFFICEOrdered B y: Billie Verma on 01-18-2025 HCG ( test) Ql (U) Negative Negative [facility] Interpretation and review of laboratory results Normal [facility] Negative Internal Control Negative Negative [facility] Positive Internal Control Positive Positive [facility] Telephone Encounteron 2024 Insulation Estimator Authentication Interface Message Text Spoke to Rosemary from [facility]. Aware of 11:30 time of arrival at [facility]. NPO and medication instructions reviewed. Normal [facility] PAT Call Historyon Insulation Estimator Authentication Interface Message Text Telephone History Vee No, [id number] 01/04/2025 39 year old 146 lbs 4' 10 Patient was identified by name and date of . [facility] HERMOSILLO [phone] fax [phone] Legal guardian Leobardo Calloway [phone] *Not sure that patient will be able to provide urine sample the day of procedure intermittently continent, [facility]PC turn around on Labs 72 hours Needs: Physical, Neck Circumference, and BHCG on DOS. Wheel chair Able to ambulate with asst short distances, CP, Sz hx, Intellectual disability If the patient becomes ill prior to procedure or surgery, they are to call their provider or surgeon's office directly. Date of Surgery: 01/18/2025 Surgeon: Pretty Type of Surgery: LEFT EXTRACTION, TEETH: #12,#13,#14 HISTORY OF PRESENT ILLNESS: Telephone history prior to surgery or procedure with anesthesia scheduled at [facility] Partial note 07/13/2024 Oral surgery [place] 39yoF, PMH remarkable for ADHD, Autism, Cerebral palsy, Impulse control disorder, seizure disorder, osteoporosis (pt has hx of alendronate 5+yrs stopped in 12/2023) , bipolar disorder, referred to [facility] for extraction of teeth #12,13,14. PLAN: Our plan is to extract the teeth under [facility] @ [facility] due to pt medical history and lack of cooperation. Partial note Neurology 09/29/2024 Lambert[place] 39-year-old female with MRDD and cerebral palsy and symptomatic seizure disorder, behavioral and conduct issues. She can have nystagmas and crossing of her right eye and bilateral. This is evaluated every shift. This is noticed more when she is having behaviors . She was no longer on the lamictal. Latuda was started at this same time. She does continue on the depakote and keppra. I do suspect the lamictal may have given her some seizure coverage and perhaps this discontinuation is the reason along with the affect of latuda can decrease seizure threshold and at prior visit she had some recorded seizure like activity. We did order an amb EEG to [...] added 02/19/[address] Terry Price. This was at a seizure prevention dosing. Then, her visit was moved up as the tegretol was stopped and lithium orderd. She was off the tegretol for 4 days and had a grand mal seizure reported from staff and another event they believe to be seizure. She then had the tegretol restarted and lithium stopped. There was then a phone call December 15, 2023 as she was having increased behaviors to the point that she was pulling out her own hair so therefore they had to practically shave her head. She has always had issues with biting and that was increasing as well. She was spitting and biting her clothes off of herself. Psychiatry had been changing some of her medications around as noted above. They questioned if the Lyrica could be causing the increase in her behaviors. We do not prescribe Lyrica but she had been on it for some time without any dose changes. I do not believe that the Lyrica was the cause. These behaviors continued and Psychiatry has now gotten her off of her Latuda and her Tegretol. Unfortunately she has had a grand mal seizure noted by the home several visits ago. And the night prior to that she was home with her father and he stated she had 1 as well. We did increase her nighttime Depakote and he behaviors have gotten better and one possible seizure noted shortly after increase, none in the last 6 months. She is very pleasant today. Behaviors seem to continue to be doing well. She is now on Risperdal. She is excited today as she is going home for the weekend. Her parents continue to take her home every other weekend. Plan home paperwork reviewed continue with keppra 500 mg po BID Continue depakote ER for seizure prevention 500 mg in am 750 mg at bedtime Continue with Psychiatry monitor for worsening continue exercises call in for any events This was discussed with the patient, all questions were answered and they agreed with the treatment plan. The patient is to call with any worsening of the condition or new symptoms. STOP-BANG Row Name 01/04/25 6040 History of sleep apnea? No Snoring No Tired/Fatigued No Observed Apnea No Pressure: Hypertension No BMI greater than 35 0 Age greater than 50 0 Gender male? 0 Score 0 EXERCISE CAPACITY: <4 mets WC ALLERGIES: Benadryl [diphenhydramine], Chloral hydrate, Octacosanol, and Valium [diazepam] PREVIOUS ANESTHETIC EXPERIENCES AND INTUBATION HIS (more content not included)... Normal [facility] Telephone Encounteron 2024 Insulation Estimator Authentication Interface Message Text Encounter created in error. Normal [facility] Telephone Encounteron 2024 Insulation Estimator Authentication Interface Message Text Azra from [facility] calling in to see what appt for 11/17/24 is for. There is some confusion because last OS appt needed to be cancelled because the pt ate. Please follow up with Azra at [phone] Normal [facility] Telephone Encounteron 2024 Insulation Estimator Authentication Interface Message Text Situation: Sparkle is calling from [facility] to see if appointment for today needs to be cancelled/ rescheduled Background: Pt is scheduled for surgery today to have teeth extraction at [address] She was supposed to be NPO for this procedure but accidentally got a breakfast tray and ate the whole thing. She had eggs, toast and applesauce. Assessment: N/A Recommendation: Encounter routed to clinical pool for recommendation. Please call Spark[facility] at [phone] to advise if surgery will need rescheduled. Normal [facility] Telephone Encounteron 2024 Insulation Estimator Authentication Interface Message Text Patient's arrival time for 11/02/2024 is 0645, moved earlier per [facility] request. [facility] confirmed 0645 arrival, NPO and med instructions reviewed. Normal [facility] Telephone Encounteron 2024 Insulation Estimator Authentication Interface Message Text Christy from [facility] made aware of 0915 surgery arrival time on 11/02 at [facility]. Normal [facility] Telephone Encounteron 2024 Insulation Estimator Authentication Interface Message Text Situation: Gabriela Booth calling in on behalf of pt Background: Mom states had gotten a call from staff requesting consent for an upcoming procedure Assessment: n/a Recommendation: Erick Gabriela, fauzia Rn will route message to [facility] [place] and staff to call back at [phone] to obtain consent . Normal [facility] PAT Call Historyon Insulation Estimator Authentication Interface Message Text Telephone History Vee No, [id number] 10/12/2024 Patient was identified by name and date of with Nurse Cassidy at [facility]. Needs: Physical, Neck Circumference, BHCG and Seizure Precautions on DOS. If the patient becomes ill prior to procedure or surgery, they are to call their provider or surgeon's office directly. Will need LG consent 10/12/2024- Faxed Prep info to [facility] : 39 year old 146.6 lbs 4' 10 Date of Surgery: 11/02 Surgeon: Pretty Type of Surgery: EXTRACTION, TEETH: #12,#13,#14 HISTORY OF PRESENT ILLNESS: Telephone history prior to the surgery at [facility], [address] [place] [address], enter through the main entrance, check-in at the operating room desk, 1st floor. STOP-BANG Row Name 10/12/24 0911 History of sleep apnea? No Snoring No Tired/Fatigued No Observed Apnea No Pressure: Hypertension No BMI greater than 35 0 Age greater than 50 0 Neck circ greater than 40cm (15.75 ) Unable to Assess Gender male? 0 Score 0 EXERCISE CAPACITY: <4 mets and Uses a wheel chair ALLERGIES: Benadryl [diphenhydramine], Chloral hydrate, Octacosanol, and Valium [diazepam] PREVIOUS ANESTHETIC EXPERIENCES AND INTUBATION HISTORY: No previous anesthetic complication FAMILY HISTORY OF ANESTHETIC COMPLICATIONS: No PAST MEDICAL HISTORY: Medical History[1] PROBLEM LIST: Problem List[2] Past Medical History and Review of Systems Pulmonary - negative ROS Comment: Denies SOB, wheezes, fever, chills, increased sputum, or general malaise. 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 GI/Hepatic/Renal - negative ROS Heme/Other (+) anemia PAST SURGICAL HISTORY: Surgical History[3] SOCIAL HISTORY: Social History[4] PAIN ASSESSMENT: Severity: 0 Location: N/A LABORATORY DATA: Type AND Screen (Last result in the past 30 days) No lab values to display. CBC (last 3 years, up to 8 [...] Metabolic Panel No lab values to display. PT/PTT/INR (last 3 years, up to 8 values) No lab values to display. Arterial Blood Gases None No result for BNP LFT's (last 3 years, up to 8 values) No lab values to display. Urinalysis No lab values to display. TESTS REVIEWED: CXRay: No Chest x-ray found EKG: Last ECG Date: 12/28/2023 - HR 75 Normal sinus rhythm Nonspecific T wave abnormality Abnormal ECG No previous ECGs available Confirmed by LORENZA PARKS ([id number]) on 12/28/2023 8:11:02 PM ECHO: Echocardiogram date: Not Found No results found for this basename: LVEF Stress test date: Last StressTest: none found going back to 09/08/2005 CURRENT MEDICATION LIST: Current Outpatient Medications Medication Sig Dispense Refill cyproheptadine (PERIACTIN) 4 MG tablet Take 4 mg by mouth at bedtime. Cariprazine HCl (Vraylar) 6 MG CAPS capsule guaifenesin-dextromethor winkler (MUCINEX DM) 30-600 MG tablet Promethazine HCl (PHENERGAN INJ) Take by mouth. risperiDONE (RISPERDAL) 3 MG tablet D3-1000 25 MCG (1000 UT) CAPS capsule divalproex ER (DEPAKOTE ER) 250 MG ER tablet at bedtime. divalproex ER (DEPAKOTE ER) 500 MG ER tablet Linzess 290 MCG CAPS capsule Take 290 mcg by mouth daily. lurasidone (LATUDA) 80 MG tablet Take 1 Tablet by mouth. pantoprazole (PROTONIX) 40 MG tablet CARBAMAZEPINE ORAL Take by mouth. (Patient not taking: Reported on 10/12/2024) Calcium Carb-Cholecalciferol (Oyster Shell Calcium w/D) 500-5 MG-MCG TABS chlorhexidine (Peridex) 0.12 % oral solution Swish mouth with 15 mL by mouth 2 times daily. DO NOT SWALLOW 473 mL 3 medroxyPROGESTERone (Depo-Provera) 150 MG/ML injection Inject 150 mg into the muscle once. (Patient not taking: Reported on 10/12/2024) ondansetron (Zofran) 4 MG tablet Take 4 [...] 500 mg by mouth 2 times daily. le (more content not included)... Normal [facility] Progress Noteson 07-18-2024 Insulation Estimator Authentication Interface Message Text Teaching Physician Note: I saw and evaluated the patient. I personally obtained the michelle and critical portions of the history and physical exam. I reviewed the resident's documentation and discussed the patient with the resident. I agree with the resident's medical decision making as documented in the resident's note. Moo Schilling DMD, MD Normal [facility] Telephone Encounteron 2024 Insulation Estimator Authentication Interface Message Text Please call [facility] back at Telephone Information: To discuss the need to remove teeth apparently pt mother wants a detailed explanation form facility as why thye extraction is needed [facility] did read that it was due to decay and stated this to facility Normal [facility] Progress Noteson 07-13-2024 Insulation Estimator Authentication Interface Message Text [facility] PATIENT VISIT CHIEF COMPLAINT: Pain HISTORY OF PRESENT ILLNESS: Pt is a 39yoF, PMH remarkable for ADHD, Autism, Cerebral palsy, Impulse control disorder, seizure disorder, osteoporosis (pt has hx of alendronate 5+yrs stopped in 12/2023) , bipolar disorder, [place] [facility] [place] #12,13,14. PAST MEDICAL [...] disorder [F63.9] Osteoporosis [M81.0] Other bipolar disorder ([facility]) [F31.89] Autism spectrum disorder ([facility]) [F84.0] Severe intellectual disability with intelligence quotient 20 to 34 [F72] Seizure disorder ([facility]) [G40.909] Hypothyroidism, unspecified [E03.9] Epilepsy, unspecified, not intractable, without status epilepticus ([facility]) [G40.909] Bipolar 1 disorder ([facility]) [F31.9] REVIEW OF SYSTEMS: A 12-point review [...] DENTAL RESTORATIONS; Surgeon: Fernando Kurtz DDS; Location: [facility] Surgery [place]; Service: Dental DENTAL RESTORATIONS N/A 11/05/2020 Procedure: DENTAL RESTORATIONS; Surgeon: Dru Friedman DDS; Location: [facility]; Service: Dental DENTAL RESTORATIONS N/A 01/08/2024 Procedure: DENTAL RESTORATIONS; Surgeon: Stacie Torres DMD; Location: [facility]; Service: Dental SOCIAL HX: Tobacco: Never CLINICAL EXAMINATION Extraoral examination: No significant findings No s/s of infection, redness or tenderness to palpation No facial asymmetry or swelling No appreciable LAD No tenderness to palpation of temporalis or masseter Asymptomatic function Intraor (more content not included)... Normal [facility] Insulation Estimator Authentication Interface Message Text Normal [facility] Insulation Estimator Authentication Interface Message Text Normal [facility] Telephone Encounteron 2024 Insulation Estimator Authentication Interface Message Text Missed Call Pt's mom/guardian, Gabriela, said she missed a call from Oral Surgery and would like a call back. Please call Gabriela at [phone]. Thanks! Normal [facility] HCG, QUANTITATIVEon 01-08-20 24 [facility]CG Qn [facility] of [facility] results [facility] Cardiologyon 12-28-2023 P wave axis 23 degrees [facility] P-R Interval 130 ms [facility] Q-T interval 390 ms [facility] Q-T interval corrected 435 [facility] Q[facility] 42 degrees [facility] QRS duration 86 ms [facility] T wave axis 16 degrees [facility] No Panel Informationon 12-27 Diagnosis Normal sinus rhythm Nonspecific T wave abnormality Abnormal ECG No previous ECGs available Confirmed by LORENZA PARKS ([id number]) on 12/28/2023 8:11:02 PM [facility] P wave Atrium by EKG 75 BPM [facility] Basic metabolic 2000 panelon 12-25-2023 Anion gap [Moles/Vol] 13 mmol/L 10 - 20 Met [facility] Calcium [Mass/Vol] 9.0 mg/dL 8.6 - 10. [...] Inclusion of Race in Diagnosing Kidney Disease. [place] Journal of Kidney Diseases 2021;79(2):268-88.e1. 2. N Engl J Med 2020 Vol. 385 Issue 19 Pages 2369-9912 Glucose [Mass/Vol] 85 mg/dL 74 - 109 [...] [#/Vol] 5.3 10*3/uL 4.5 - 11.5 K/uL [facility] [place] Gastric Emptying Studyon 09-27-2023 [place] Gastric Emptying Study Exam Date/Time: 09/23/2023 13:59 [...] 30.4 3.0 hr (Upper Limit 30%) 1.5 [facility] Consent for Treatmenton Consent for Treatment [id number] F [facility] IntraOperative Documentson 0 09-18-2023 IntraOperative Documents [id number] F Normal [facility] Progress Note-Physicianon Progress Note-Physician Patient: VEE [...] mental retardation (I.Q. 20-34) / SNOMED CT 10841984 / Confirmed Seizure disorder / SNOMED CT 585376888 / Confirmed Seasonal allergy / SNOMED CT 1909915571 / Confirmed Pervasive developmental disorder / SNOMED CT 96042975 / Confirmed Osteoporosis / SNOMED CT 935984325 / Confirmed Impulse control disorder / SNOMED CT 136396491 / Confirmed Disruptive behavior disorder / SNOMED CT 11624351 / Confirmed Constipation / SNOMED CT 20936174 / Confirmed Cholelithiasis / SNOMED CT 922871792 / Confirmed Cerebral palsy / SNOMED CT 794713691 / Confirmed Bipolar / SNOMED CT 731758714 / Confirmed Histories Procedure history: No active procedure history items have been selected or recorded. Social History Social & Psychosocial Habits Tobacco 09/10/2023 Tobacco Use: Never (less than 100 in l Smokeless tobacco use: Never . Physical Examination Airway: Mallampati classification: II (soft palate, fauces, uvula visible). Respiratory: adequate air exchange. Cardiovascular: Regular rhythm. Plan [place] Society [employer] Anesthesiologists (ASA) physical status classification: Class III. Anesthetic Preoperative Plan: Anesthesia General. Normal [facility] Comment on above: Result Comment: Elec [...] when meets criteria ( To home ). [facility] Comment on above: Result Comment: Elec tronically Signed By: Alan Rebolledo DO, Chaim Whaley\.bryson\Date and Time Signed: 09/18/23 08:45 EDT [place] 09-17-2023 Consent [id number] FF [facility] Discharge Instructionson Discharge Instructions [id number] FF [facility] Main OR Intraoperative Recor don 09-17-2023 Main OR Intraoperative Record IntraOp Document Type FT Summary Primary Physician: Jessee Nina MD Finalized Date/Time: 09/17/23 09:56:06 Pt. Name: SAMSONVEE Martinez D.O.B./Sex: 1985 Female Med Rec #: [id number] Physician: Jessee Nina MD Financial #: [id number] Pt. Type: O Room/Bed: / Admit/Disch: 09/16/23 [...] 3 Case Attendee Margret SALMON, James [address] RO[address] MIXER OPERATOR, Josefa Nina MD, Jessee Cerda Role Performed Anesthesiologist Scrub - Primary Surgeon - Primary Satellite Installation Technician Time In 09/16/23 08:21:00 09/16/23 08:21:00 09/16/23 08:21:00 Time Out 09/16/23 08:33:00 09/16/23 08:33:00 09/16/23 08:33:00 Procedure EGD(.) EGD(.) EGD(.) Comments Dr. Phillips is supervising Last Modified By: Wendy Brown RN, RN, Kristin N Sherman RN, Kristin N 09/16/23 08:32:53 09/16/23 08:32:53 09/16/23 08:32:53 Entry 4 Case Attendee Wendy Brown RN Role Performed Tip Cutter - Primary Time In 09/16/23 08:21:00 Time [...] Out James Sidhu Given Participants Ivy [address]ons[address] MIXER OPERATOR, Kelle Bean MD, Jessee Chester, Wendy Brown [...] and tissue Entry 1 Skin Integrity Intact, [place], Warm, and Skin Abnormality No Dry Outcomes [...] Leg Po (more content not included)... Normal [facility] Consent for Treatmenton Consent for Treatment [id number]#1.00TIF F Normal [facility] Discharge Instructionson Discharge Instructions VEE SARABIA :1985 Visit Date:09/16/2023 Inpatient Discharge Instructions Your Care Team Admitting Physician - Jessee Nina MD Referring Physician - Jessee iNna MD Reason for Your Visit NAUSEA AND [...] weeks Comments: Call for any problems. Where: [address] [place] [address], [address] [place] [address]- [phone] Glasses[employer] (1) Medications What How Much When Instructions [...] certain medicines, such (more content not included)... [facility] Comment on above: Result Comment: Elec tronically Signed By: Kenyon HERMOSILLO, Stacie\.bryson\Date and Time Signed: 09/16/23 08:49 EDT Pippa [...] status post biopsies. Images Procedure images: Rec_hd_video_ [id number].jpg Rec_hd_video_ [id number].jpg Rec_hd_video_ [id number].jpg Rec_hd_video_ [id number].jpg . Post-Procedure Complications: none. Estimated blood loss: minimal. Specimens: sent to pathology. Devices/ implants: none left in place. Impression and Plan irregular Z-line Gastropathy fundic gland polyps Status post biopsies from stomach and duodenum Recommendations: -Resume previous diet -Resume home medications -Await pathology results Normal [facility] Comment on above: Other Comment: Melissa calderón Attachment - attachment storage system not supported [id number] Can be viewed in source system Missing Attachment - attachment storage system not supported [id number] Can be viewed in source system Missing Attachment - attachment storage system not supported [id number] Can be viewed in source system Missing Attachment - attachment storage system not supported [id number] Can be viewed in source system Main OR PACU I Recordon 050 Main OR PACU I Record PACU Phase I Docum ent Type FT Summary Primary Physician: Jessee Nina MD Finalized Date/Time: 09/16/23 09:20:05 Pt. Name: VEE SARABIA Tawanda LiangB./Sex: 1985 Female Med Rec #: [id number] Physician: Jessee Nina MD Financial #: [id number] Pt. Type: O Room/Bed: / Admit/Disch: 09/16/23 [...] By: Stacie Prescott RN 09/16/23 09:20 Normal [facility] Main OR Preoperative Recordo n 09-16-2023 Main OR Preoperative Record Holding Area Document Type FT Summary Primary Physician: Jessee Nina MD Finalized Date/Time: 09/16/23 07:37:45 Pt. Name: ROXYVEE Martinez/Sex: 1985 Female Med Rec #: [id number] Physician: Jessee Nina MD Financial #: [id number] Pt. Type: O Room/Bed: / Admit/Disch: 09/16/23 [...] Adult Bill- staff from postop adult Supervision [facility] supervision available Case Cancelled in No Holding Area see comments below for reason Last Modified By: Vanessa Roy RN 09/16/23 07:35:16 General Comments: Caregiver, Bill present with patient from [facility] ([place], [place]). /,RN Finalized By: Vanessa Roy RN Document Signatures Signed By: Vanessa Roy RN 09/16/23 07:37 [facility] Monitor Recordon 09-16-2023 Monitor Record [id number]#1.00TI FF [facility] Monitor Record [id number]#1.00TI FF [facility] Consent for Procedure/Surger yon 09-11-2023 Consent for Procedure/Surgery [id number]#1.00TI FF [facility] Ambulatory Visit Summaryon 0 09-10-2023 Ambulatory [...] Appointments Thursday. 2023 8:00 AM EDT Where: [facility] You Need to Complete the Following NM Gastric Emptying Study, 09/10/23, Routine, Order for Future Visit, Transport Mode: Ambulatory, Reason: Nausea, Nausea and vomiting Invalid Interpretation Code Early satiety [facility] Gastroenterology Office/Clin ic Noteon 09-10-2023 Gastroenterology Office/Clinic Note Chief Complaint nausea/vomiting, constipation, weight loss HPI Staff Patient is a 38 year old female who was referred by [facility] for nausea and vomiting. [...] diphtheria/pertussis, acel/tetanus adult 08/14/2022 Recorded SARS-CoV-2 (COVID-19) mRNAMUL.ORD![id number] 08/14/2022 Recorded influenza virus vaccine, inactivated 03/05/2022 Recorded SARS-CoV-2 (COVID-19) mRNAMUL.ORD![id number] 03/05/2022 Recorded 2023-09-09: TPVALL influenza virus vaccine, [...] Recorded measles/mumps/rubella virus vaccine 11/15/1986 Recorded Normal [facility] Comment on above: Result Comment: Elec tronically Signed By: Kelle RAMIREZ, Jessee Chester\.br\Date and Time Signed: 09/10/23 09:40 EDT [facility] Recordson 09-09 [facility] Records [id number]#1.00TIF F Normal [facility] CBC w/Indiceson 04-01-2023 Erythrocyte distribution width (RBC) [Ratio] 15.4 % High 10.9-14.2 [facility] Comment on above: Performed By: #### 2 307509, 6571351, 2606321, 3343025, 8241276, 8418495, 8147764, 82989263, 8463429, 7163823 ####[facility] [address] [place] [address] Hematocrit (Bld) [Volume fraction] 37.4 % Normal 34.0-46.0 [facility] Comment on above: Performed By: #### 2 674939, 0156305, 6461198, 0091704, 9916021, 7227713, 4218456, 47133827, 3901134, 1668367 ####[facility] [address] [place] [address] Hemoglobin (Bld) [Mass/Vol] 12.1 g/dL Normal 12.0-16.0 [facility] Comment on above: Performed By: #### 2 907830, 7120721, 7611520, 4742941, 6716829, 4455824, 1063346, 66262384, 7237812, 9651049 ####[place] [address] MCH (RBC) [Entitic mass] 30.9 pg Normal 27.0-34.0 [facility] Comment on above: Performed By: #### 2 776983, 9279033, 8564527, 5194395, 9914510, 6466549, 7692335, 93264363, 9650460, 7574385 ####[address] [address] MCHC (RBC) [Mass/Vol] 32.4 g/dL Normal 31.4-36.0 [facility] Comment on above: Performed By: #### 2 191078, 4231709, 4515348, 7953123, 8334604, 6794182, 2535305, 43239539, 1479461, 6656176 ####[place] [address] [place] [address] MCV (RBC) [Entitic vol] 95.6 fL Normal 80.0-100.0 [facility] Comment on above: Performed By: #### 2 500455, 9204905, 5335508, 2330530, 1638969, 0781552, 7360835, 18174279, 5479263, 8162640 ####[facility] [address] [place] [address] Platelet mean volume (Bld) [Entitic vol] 12.2 fL High 6.4-10.8 [facility] Comment on above: Performed By: #### 2 295802, 6742929, 0539408, 2385719, 0358913, 4838114, 5089334, 79709697, 5597931, 4360417 ####[facility] [address] [place] [address] Platelets (Bld) [#/Vol] 309.0 E9/L Normal 150. 0-500. 0 [facility] Comment on above: Performed By: #### 2 104942, 7899239, 5572806, 0826798, 6593223, 8990793, 6706142, 16167003, 6798063, 9690833 ####[facility] [address] [place] [address] RBC (Bld) [#/Vol] 3.9 E12/L Low 4.3-5.9 [facility] Comment on above: Performed By: #### 2 915639, 8459969, 2131658, 3276149, 9718735, 8016648, 4443050, 15699258, 4946937, 2146072 ####[facility] [address] [place] [address] WBC corrected for nucl RBC Auto (Bld) [#/Vol] 6.5 E9/L Normal 4.0-11.0 [facility] Comment on above: Performed By: #### 2 120050, 7667291, 0931763, 7024045, 6083286, 7749527, 5210396, 12998576, 1463531, 3801415 ####[address] [place] [address] CHEMISTRYOrdered By: SYSTEM SYSTEM on 04-01-2023 Albumin [...] 04-01-2023 Albumin [Mass/Vol] 3.7 g/dL Normal 3.3-5.0 [facility] Comment on above: Performed By: #### 2 465168, 5487000, 6701507, 7767984, 2929874, 7458571, 4387280, 97430486, 2247221, 8591726 ####[facility] [address] [place] [address] Albumin/Globulin (S) [Mass conc ratio] 1.2 Normal 1.1-2.2 [facility] Comment on above: Performed By: #### 2 821813, 0942867, 2588063, 6391999, 8903268, 0410300, 8322202, 94929339, 8704935, 9343497 ####[facility] [address] [place] [address] ALP [Catalytic activity/Vol] 32 Int._Unit/L Normal 21-98 [facility] Comment on above: Performed By: #### 2 938482, 2380415, 3950056, 4756630, 4762214, 4923076, 2872473, 69546948, 0579056, 7200843 ####[facility] [address] [place] [address] ALT No additional P-5'-P [Catalytic activity/Vol] 24 Int._Unit/L Normal 6-46 [facility] Comment on above: Performed By: #### 2 748866, 2332820, 6218697, 8490909, 8325955, 2853420, 8550767, 13582965, 1846866, 2770381 ####[facility] [address] [place] [address] Anion gap [Moles/Vol] 13 mmol/L Normal 6-16 [facility] Comment on above: Performed By: #### 2 136471, 3529967, 5365812, 0063458, 2519113, 0772781, 7727042, 97430505, 0415127, 2957153 ####[facility] [address] [place] [address] AST [Catalytic activity/Vol] 28 Int._Unit/L Normal 5-43 [facility] Comment on above: Performed By: #### 2 832513, 2992356, 8800786, 6507320, 9025558, 2098962, 3039053, 83710300, 9163787, 8744884 ####[facility] [address] [place] [address] Bilirubin [Mass/Vol] 0.1 mg/dL Normal 0.0-1.1 [facility] Comment on above: Performed By: #### 2 362960, 8395852, 8098663, 6825026, 2990829, 4623690, 4300481, 46271005, 7831806, 1977297 ####[facility] [address] [place] [address] Calcium [Mass/Vol] 8.9 mg/dL Normal 8.9-11.1 [facility] Comment on above: Performed By: #### 2 736289, 4350784, 7971260, 9807469, 9048906, 2358739, 0089360, 98656598, 5847887, 8862221 ####[facility] [address] [place] [address] Chloride [Moles/Vol] 98 mmol/L Low 101-111 [facility] Comment on above: Performed By: #### 2 059567, 0689663, 9649001, 4628727, 4139264, 0204157, 0156158, 67675024, 4251327, 8613722 ####[facility] [address] [place] [address] CO2 [Moles/Vol] 24 mmol/L Normal 21-31 [facility] Comment on above: Performed By: #### 2 219966, 0379769, 9114905, 7994459, 8591204, 0881267, 1877049, 53682496, 9360930, 6017945 ####[facility] [address] [place] [address] Creatinine [Mass/Vol] 0.5 mg/dL Normal 0.5-1.3 [facility] Comment on above: Performed By: #### 2 952390, 6825478, 1696673, 3030657, 4525397, 9903098, 6374656, 64837385, 3653333, 7142197 ####[facility] [address] [place] [address] Globulin (S) [Mass/Vol] 3.2 g/dL Normal 1.4-4.0 [facility] Comment on above: Performed By: #### 2 743930, 4125158, 8257012, 2485200, 0084615, 4684051, 8606641, 57750211, 2121635, 0008793 ####[facility] [address] [place] [address] Glucose [Mass/Vol] 86 mg/dL Normal 55-199 [facility] Comment on above: Result Comment: If t his glucose result represents a fasting glucose, interpretation should refer to the following reference range: 55-99 mg/dL Performed By: #### 2 422881, 2114617, 4678513, 1670489, 7618869, 0864560, 4157995, 81345890, 0215774, 4009385 ####[facility] [address] [place] [address] Potassium [Moles/Vol] 4.3 mmol/L Normal 3.5-5.3 [facility] Comment on above: Performed By: #### 2 316633, 1405128, 6641199, 4013362, 9283757, 9837784, 9530016, 50518914, 8588332, 4064120 ####[facility] [address] [place] [address] Protein [Mass/Vol] 6.9 g/dL Normal 6.0-7.8 [facility] Comment on above: Performed By: #### 2 405262, 5665164, 4278337, 7868417, 5780519, 6999697, 4932824, 49815830, 2207484, 9331332 ####[facility] [address] [place] [address] Sodium [Moles/Vol] 131 mmol/L Low 135-145 [facility] Comment on above: Performed By: #### 2 574804, 3738790, 0786903, 3536163, 3982136, 2900281, 2006376, 50833223, 0891756, 8749600 ####[facility] [address] [place] [address] Urea nitrogen [Mass/Vol] 8 mg/dL Normal 5-21 [facility] Comment on above: Performed By: #### 2 709868, 5937870, 0078706, 6791661, 5133122, 5076849, 1458603, 06803995, 1212641, 4121678 ####[facility] [address] [place] [address] Urea nitrogen/Creatinine [Mass ratio] 16 No Units Normal 10-20 [facility] Comment on above: Performed By: #### 2 613671, 2410241, 7377141, 2646849, 5190946, 5038567, 5007891, 10220376, 3254739, 2415840 ####[facility] [address] [place] [address] Carbamazepineon 04-01-2023 carBAMazepine [Mass/Vol] 4.4 microgram/mL Normal 4.0-1 2.0 [facility] Comment on above: Performed By: #### 2 272599, 8810700, 4632477, 5853390, 3399653, 9342168, 8198508, 85319301, 1694623, 5789982 ####[facility] [address] [place] [address] Ferritinon 04-01-2023 Ferritin [Mass/Vol] 39 ng/mL Normal 11-307 [facility] Comment on above: Result Comment: NORM ALS MEN <30 YRS 16-132 ng/mL MEN >30 YRS 8-338 ng/mL WOMEN (PREMEN) 6-104 ng/mL WOMEN (POSTMEN) 12-210 ng/mL Performed By: #### 2 899095, 7848917, 2580963, 5500195, 5904106, 6745374, 6544036, 12416582, 4622567, 6731163 ####[facility] [address] [place] [address] Free T4on 04-01-2023 Free T4 [Mass/Vol] 0.97 ng/dL Normal 0.58-1.64 [facility] Comment on above: Performed By: #### 2 111955, 7309544, 6085574, 4847778, 7159091, 2161134, 9133511, 74416005, 2248241, 0598782 ####[facility] [address] [place] [address] HEMATOLOGYOrdered By: Graciela Carey on 04-01-2023 Erythrocyte [...] Iron [Mass/Vol] 130 microgram/dL Normal 35-153 [facility] Comment on above: Performed By: #### 2 370148, 5199753, 3092436, 4543732, 8081451, 0965253, 6591878, 21989291, 9849775, 3709639 ####[facility] [address] [place] [address] Physician Orderon 04-01-2023 Physician Order [id number]#[id number] FF Normal [facility] TSHon 04-01-2023 TSH Qn 0.96 m[IU]/L Normal 0.34-5.60 [facility] Comment on above: Performed By: #### 2 212966, 8743007, 1606490, 2539707, 5891190, 2898822, 9456820, 43816898, 4322758, 4267842 ####[facility] [address] [place] [address] Valproic Acidon 04-01-2023 Valproate [Moles/Vol] 59 microgram/mL Normal 50-99 [facility] Comment on above: Performed By: #### 2 948636, 6763010, 2330738, 9939051, 0048771, 8134674, 8036170, 34767818, 7679330, 1467535 ####[facility] [address] [place] [address] Vit B12on 04-01-2023 Cobalamin (Vitamin B12) [Mass/Vol] 305 pg/mL Normal 50-1500 [facility] Comment on above: Performed By: #### 2 920323, 2312145, 9227133, 5661103, 6169609, 7635541, 9732860, 11088113, 3641797, 2797969 ####[facility] [address] [place] [address] eGFRon 04-01-2023 GFR/1.73 sq M.predicted among non-blacks MDRD (S/P/Bld) [Vol rate/Area] 124 mL/min/1.73 m2 Normal >=59 [facility] Comment on above: Order Comment: Order added by Discern Expert. Result Comment: Web User Experience Strategist tamara kidney disease could be indicated at eGFR's of less than 60 mL/min/1.73m2. Kidney failure is indicated at less than 15 mL/min/1.73m2. Performed By: #### 2 818646, 7105190, 0755130, 8061890, 0894969, 1943535, 6176701, 19902184, 2425633, 0678441 ####[facility] [address] [place] [address] CHEMISTRYOrdered By: SYSTEM SYSTEM on 01-14-2023 Valproate [Moles/Vol] 82 microgram/mL Normal 50 - 99 mcg/mL [facility] Remisol Physician Orderon 01-14-2023 Physician Order [id number]#[id number]: 127 Normal [facility] Valproic Acidon 01-14-2023 Valproate [Moles/Vol] 82 microgram/mL Normal 50-99 [facility] Comment on above: Performed By: #### 2 591742 ####[facility] [address] [place] [address] XR DEXA BONE DENSITYon 10-01 XR DEXA [...] by: SANDY RAMIREZ Date: 2022-10-01 11:02 Normal [facility] CBC AUTO DIFFon 09-16-2022 BASO # 0.0 103/ul Normal 0.0-0.1 [facility] Comment on above: Performed By: #### C BC #### [facility] [address] [place], [place] [address] Dr. Chong Agarwal Basophils/100 WBC (Bld) 0.3 % Normal 0.2-2.0 [facility] Comment on above: Performed By: #### C BC #### [facility] [address] [place], [place] [address] Dr. Chong Agarwal EO # 0.0 103/ul Normal 0.0-0.7 [facility] Comment on above: Performed By: #### C BC #### [facility] [address] [place] [address] Dr. Chong Agarwal Eosinophils/100 WBC (Bld) 0.4 % Critically low 0.9-7.0 [facility] Comment on above: Performed By: #### C BC #### [facility] [address] [place] [address] Dr. Chong Agarwal Erythrocyte distribution width (RBC) [Ratio] 14.6 % Normal 11.0-15.0 [facility] Comment on above: Performed By: #### C BC #### [facility] [address] [place] [address] Dr. Chong Agarwal Hematocrit (Bld) [Volume fraction] 37.6 % Normal 36.0-48.0 [facility] Comment on above: Performed By: #### C BC #### [facility] [address] [place] [address] Dr. Chong Agarwal Hemoglobin (Bld) [Mass/Vol] 12.2 g/dL Normal 12.0-16.0 [facility] Comment on above: Performed By: #### C BC #### [facility] [address] [place] [address] Dr. Chong Agarwal IG # 0.02 10e3/ul Normal 0.00-0.03 [facility] Comment on above: Performed By: #### C BC #### [facility] [address] [place] [address] Dr. Chogn Agarwal IG % 0.3 % Normal 0.0-0.5 [facility] Comment on above: Performed By: #### C BC #### [facility] [address] [place] [address] Dr. Chong Agarwal LYMPH # 2.4 103/ul Normal 1.2-3.8 [facility] Comment on above: Performed By: #### C BC #### [facility] [address] [place] [address] Dr. Chong Agarwal Lymphocytes/100 WBC (Bld) 34.6 % Normal 20.5-60.0 [facility] Comment on above: Performed By: #### C BC #### [facility] [address] [place] [address] Dr. Chong Agarwal MANUAL DIFF REQ NO Normal [facility] Comment on above: Performed By: #### C BC #### [facility] [address] [place] [address] Dr. Chong Agarwal MCH (RBC) [Entitic mass] 31.4 pg Normal 26.7-34.0 [facility] Comment on above: Performed By: #### C BC #### [facility] [address] [place] [address] Dr. Chong Agarwal MCHC (RBC) [Mass/Vol] 32.4 g/dL Normal 29.9-35.2 [facility] Comment on above: Performed By: #### C BC #### [facility] [address] [place] [address] Dr. Chong Agarwal MCV (RBC) [Entitic vol] 96.7 fL Normal 81.0-99.0 [facility] Comment on above: Performed By: #### C BC #### [facility] [address] [place] [address] Dr. Chong Agarwal MONO # 0.7 103/ul Normal 0.3-0.8 [facility] Comment on above: Performed By: #### C BC #### [facility] [address] [place] [address] Dr. Chong Agarwal Monocytes/100 WBC (Bld) 10.2 % Normal 1.7-12.0 [facility] Comment on above: Performed By: #### C BC #### [facility] [address] [place] [address] Dr. Chong Agarwal NEUT # 3.8 103/ul Normal 1.4-6.5 [facility] Comment on above: Performed By: #### C BC #### [facility] [address] [place] [address] Dr. Chong Agarwal Neutrophils/100 WBC (Bld) 54.2 % Normal 43.0-75.0 [facility] Comment on above: Performed By: #### C BC #### [facility] [address] [place] [address] [address] Chong Agarwal Platelet mean volume (Bld) [Entitic vol] 11.0 fL Normal 9.5-13.5 [facility] Comment on above: Performed By: #### C BC #### [facility] [address] [place] [address] Dr. Chong Agarwal PLT 290 103/ul Normal 150-450 [facility] Comment on above: Performed By: #### C BC #### [facility] [address] [place] [address] [address] Chong Agarwal RBC 3.89 106/ul Critically low 4.20-5.40 [facility] Comment on above: Performed By: #### C BC #### [facility] [address] [place] [address] Dr. Chong Agarwal WBC 7.0 103/ul Normal 4.0-11.0 [facility] Comment on above: Performed By: #### C BC #### [facility] [address] [place] [address] Dr. Chong Agarwal FREE T3on 09-16-2022 FREE T3 2.11 pg/mlL Critically low 2.18-3.98 [facility] Comment on above: Performed By: #### T SH, CMP, LIPID, FT3 #### [facility] [address] [place] [address] Dr. Chong Agarwal FREE T4on 09-16-2022 Free T4 [Mass/Vol] 1.25 ng/dL Normal 0.76-1.46 [facility] Comment on above: Performed By: #### F T4, VITB12 #### [facility] [address] [place] [address] Dr. Chong Agarwal LIPID PROFILEon 09-16-2022 CHOL-HDL RATIO NORM SEE BELOW Normal [facility] Comment on above: Result Comment: 3.3 - 4.4 LOW RISK 4.4 - 7.1 AVERAGE RISK 7.1 - 11.0 MODERATE RISK >11.0 HIGH RISK Performed By: #### T SH, CMP, LIPID, FT3 #### [facility] [address] [place] [address] [address] Chong Agarwal Cholesterol [Mass/Vol] 144 mg/dL Normal <=200 Th [facility] Comment on above: Performed By: #### T SH, CMP, LIPID, FT3 #### [facility] [address] [place] [address] [address] Chong Agarwal Cholesterol in HDL [Mass/Vol] 49 mg/dL Normal 40-60 [facility] Comment on above: Performed By: #### T SH, CMP, LIPID, FT3 #### [facility] [address] [place] [address] [address] Chong Agarwal Cholesterol in LDL [Mass/Vol] 78.0 mg/dL Normal [facility] Comment on above: Performed By: #### T SH, CMP, LIPID, FT3 #### [facility] [address] [place] [address] Dr. Chong Agarwal Cholesterol.total/Choles terol in HDL [Mass ratio] 2.9 {ratio} Normal [facility] Comment on above: Performed By: #### T SH, CMP, LIPID, FT3 #### [facility] [address] [place] [address] [address] Chong Agarwal HDL NORMAL > or = 60 mg/dl - LO W CARDIOVASCULAR RISK <40 mg/dl - HIGH CARDIOVASCULAR RISK Normal [facility] Comment on above: Performed By: #### T SH, CMP, LIPID, FT3 #### [facility] [address] [place] [address] Dr. Chong Agarwal LDL CALC NORMAL SEE BELOW Normal [facility] Comment on above: Result Comment: <100 mg/dl OPTIMAL 100 - 129 mg/dl NEAR OR ABOVE OPTIMAL 130 - 159 mg/dl BORDERLINE HIGH 160 - 189 mg/dl HIGH >190 mg/dl VERY HIGH Performed By: #### T SH, CMP, LIPID, FT3 #### [facility] [address] [place] [address] [address] Chong Agarwal Triglyceride [Mass/Vol] 85 mg/dL Normal <=150 T [facility] Comment on above: Performed By: #### T SH, CMP, LIPID, FT3 #### [facility] [address] [place] [address] Dr. Chong Agarwal VLDL CALC 17.0 mg/dL Normal [facility] Comment on above: Performed By: #### T SH, CMP, LIPID, FT3 #### [facility] Laboratory [address] [place] [address] Dr. Chong Agarwal PROF 14(COMP METB)on 023 Albumin [Mass/Vol] 3.5 g/dL Normal 3.4-5.0 [facility] Comment on above: Performed By: #### T SH, CMP, LIPID, FT3 #### [facility] [address] [place] [address] Dr. Chong Agarwal Albumin/Globulin [Mass ratio] 0.9 {ratio} Normal [facility] Comment on above: Performed By: #### T SH, CMP, LIPID, FT3 #### [facility] [address] [place] [address] Dr. Chong Agarwal ALP [Catalytic activity/Vol] 31 U/L Critically low 46-116 [facility] Comment on above: Performed By: #### T SH, CMP, LIPID, FT3 #### [facility] [address] [place] [address] Dr. Chong Agarwal ALT [Catalytic activity/Vol] 34 U/L Normal 14-59 [facility] Comment on above: Performed By: #### T SH, CMP, LIPID, FT3 #### [facility] [address] [place] [address] Dr. Chong Agarwal Anion gap [Moles/Vol] 8.3 mmol/L Normal [facility] Comment on above: Performed By: #### T SH, CMP, LIPID, FT3 #### [facility] [address] [place] [address] Dr. Chong Agarwal AST [Catalytic activity/Vol] 22 U/L Normal 15-37 [facility] Comment on above: Performed By: #### T SH, CMP, LIPID, FT3 #### [facility] [address] [place] [address] Dr. Chong Agarwal Bilirubin [Mass/Vol] 0.2 mg/dL Normal 0.2-1.0 [facility] Comment on above: Performed By: #### T SH, CMP, LIPID, FT3 #### [facility] [address] [address] [address] Chong Agarwal Calcium [Mass/Vol] 9.0 mg/dL Normal 8.5-10.1 [facility] Comment on above: Performed By: #### T SH, CMP, LIPID, FT3 #### [facility] [address] [place] [address] Dr. Chong Agarwal Chloride [Moles/Vol] 101 mmol/L Normal 98-107 [facility] Comment on above: Performed By: #### T SH, CMP, LIPID, FT3 #### [facility] [address] [place] [address] Dr. Chong Agarwal CO2 [Moles/Vol] 30.0 mmol/L Normal 21.0-32.0 [facility] Comment on above: Performed By: #### T SH, CMP, LIPID, FT3 #### [facility] [address] [place] [address] Dr. Chong Agarwal Creatinine [Mass/Vol] 0.54 mg/dL Critically low 0.55-1.02 [facility] Comment on above: Performed By: #### T SH, CMP, LIPID, FT3 #### [facility] [address] [place] [address] Dr. Chong Agarwal EGFR-AF SLOVENIAN >60 Normal >=60 [facility] Comment on above: Performed By: #### T SH, CMP, LIPID, FT3 #### [facility] [address] [place] [address] Dr. Chong Agarwal EGFR-NON AF SLOVENIAN >60 Normal >=60 [facility] Comment on above: Performed By: #### T SH, CMP, LIPID, FT3 #### [facility] [address] [place] [address] Dr. Chong Agarwal Globulin (S) [Mass/Vol] 3.9 g/dL Normal [facility] Comment on above: Performed By: #### T SH, CMP, LIPID, FT3 #### [facility] [address] [address] [address] Chong Agarwal Glucose [Mass/Vol] 95 mg/dL Normal 74-106 [facility] Comment on above: Performed By: #### T SH, CMP, LIPID, FT3 #### [facility] [address] [place] [address] Dr. Chong Agarwal Potassium [Moles/Vol] 4.3 mmol/L Normal 3.5-5.1 [facility] Comment on above: Performed By: #### T SH, CMP, LIPID, FT3 #### [facility] [address] [address] [address] Chong Agarwal Protein [Mass/Vol] 7.4 g/dL Normal 6.4-8.2 [facility] Comment on above: Performed By: #### T SH, CMP, LIPID, FT3 #### [facility] [address] [place] [address] Dr. Chong Agarwal Sodium [Moles/Vol] 135 mmol/L Critically low 136-145 [facility] Comment on above: Performed By: #### T SH, CMP, LIPID, FT3 #### [facility] [address] [place] [address] Dr. Chong Agarwal Urea nitrogen [Mass/Vol] 12.0 mg/dL Normal 7.0-18.0 [facility] Comment on above: Performed By: #### T SH, CMP, LIPID, FT3 #### [facility] [address] [place] [address] Dr. Chong Agarwal Urea nitrogen/Creatinine [Mass ratio] 22.2 mg/mg Normal [facility] Comment on above: Performed By: #### T SH, CMP, LIPID, FT3 #### [facility] [address] [place] [address] Dr. Chong Agarwal TSHon 09-16-2022 TSH 0.986 uIU/mL Normal 0.358-3.74 0 [facility] Comment on above: Performed By: #### T SH, CMP, LIPID, FT3 #### [facility] [address] [place] [address] Dr. Chong Agarwal VITAMIN B12on 09-16-2022 Cobalamin (Vitamin B12) [Mass/Vol] 581.0 pg/mL Normal 193.0-986. 0 [facility] Comment on above: Performed By: #### F T4, VITB12 #### [facility] [address] [place] [address] Dr. Chong Agarwal CULTURE WOUNDon 08-22-2022 CULTURE [...] Trimethoprim/Sulfamethox azole <=10 S F Normal [facility] Comment on above: Performed By: #### W OUNDCX #### [facility] [address] [place] [address] Dr. Chong Agarwal DEPAKENE/ VALPROIC ACIDon DEPAKENE 92.4 ug/ml Normal 50.0-100.0 [facility] Comment on above: Performed By: #### V ALP #### [facility] [address] [address] [address] Chong Agarwal Vital Signs Date Time Vital Sign Value Performing Clinician Facility 01-18-2025 13:30-0400 Body temperature 97 [degF] Moo Schilling DMD, MD Work Phone: [facility] 01-18-2025 13:30-0400 Diastolic blood pressure 91 mm[Hg] Moo Schilling DMD, MD Work Phone: [facility] 01-18-2025 13:30-0400 Heart rate 74 /min Moo Schilling DMD, MD Work Phone: [facility] 01-18-2025 13:30-0400 Respiratory rate 14 /min Moo Schilling DMD, MD Work Phone: [facility] 01-18-2025 13:30-0400 SaO2% (BldA) [Mass fraction] 97 % Moo Schilling DMD, MD Work Phone: [facility] 01-18-2025 13:30-0400 Systolic blood pressure 122 mm[Hg] Moo Schilling DMD, MD Work Phone: [facility] 01-18-2025 11:26-0400 Body height 147.3 cm Moo Schilling DMD, MD Work Phone: [facility] 01-18-2025 11:26-0400 Body mass index (BMI) [Ratio] 30.51 kg/m2 Moo Schilling DMD, MD Work Phone: [facility] 01-18-2025 11:26-0400 Body weight 66.22 kg Moo Schilling DMD, MD Work Phone: [facility] 01-04-2025 09:00-0400 Body height 147.3 cm Radha Evans RN [facility] 01-04-2025 09:00-0400 Body mass index (BMI) [Ratio] 30.51 kg/m2 Radha Evans RN [facility] 01-04-2025 09:00-0400 Body weight 66.22 kg Radha Evans RN [facility] 10-12-2024 09:00-0400 Body height 147.3 cm Dacia Martins RN [facility] 10-12-2024 09:00-0400 Body mass index (BMI) [Ratio] 30.64 kg/m2 Dacia Martins RN [facility] 10-12-2024 09:00-0400 Body weight 66.5 kg Dacia Martins RN [facility] 09-29-2024 10:46-0400 Body height 147.3 cm Amy Gillmor TRAIN STATION SERVER Work Phone: [facility] 09-29-2024 10:46-0400 Body mass index (BMI) [Ratio] 30.31 kg/m2 Amy Gillmor TRAIN STATION SERVER Work Phone: [facility] 09-29-2024 10:46-0400 Body weight 65.77 kg Amy Gillmor TRAIN STATION SERVER Work Phone: [facility] 09-29-2024 10:46-0400 Diastolic blood pressure 78 mm[Hg] Amy Gillmor TRAIN STATION SERVER Work Phone: [facility] 09-29-2024 10:46-0400 Systolic blood pressure 122 mm[Hg] Amy Gillmor TRAIN STATION SERVER Work Phone: [facility] 07-13-2024 08:30-0500 Body height 147.3 cm Moo Schilling DMD, MD Work Phone: [facility] 07-13-2024 08:30-0500 Body mass index (BMI) [Ratio] 31.98 kg/m2 Moo Schilling DMD, MD Work Phone: [facility] 07-13-2024 08:30-0500 Body weight 69.4 kg Moo Schilling DMD, MD Work Phone: [facility] 04-07-2024 09:53-0500 Body height 152.4 cm Amy Haleymor TRAIN STATION SERVER Work Phone: [facility] 04-07-2024 09:53-0500 Body mass index (BMI) [Ratio] 33.98 kg/m2 Amy Gillbudr TRAIN STATION SERVER Work Phone: [facility] 04-07-2024 09:53-0500 Body weight 78.93 kg Amy Gillbudr TRAIN STATION SERVER Work Phone: [facility] 01-08-2024 16:00-0400 Diastolic blood pressure 26 mm[Hg] Stacie Jaramilloo DMD [facility] 01-08-2024 16:00-0400 Heart rate 84 /min Stacie Jaramilloo DMD Work Phone: [facility] 01-08-2024 16:00-0400 Respiratory rate 22 /min Stacie Torres DMD Work Phone: [facility] 01-08-2024 16:00-0400 SaO2% (BldA) [Mass fraction] 96 % Stacie Torres DMD Work Phone[facility] 01-08-2024 16:00-0400 Systolic blood pressure 94 mm[Hg] Stacie Torres DMD [facility] 01-08-2024 15:56-0400 Body temperature 98.1 [degF] Stacie Torres DMD [facility] 01-08-2024 11:04-0400 Body height 147.3 cm Stacie Torres DMD Work Phone: [facility] 01-08-2024 11:04-0400 Body mass index (BMI) [Ratio] 31.98 kg/m2 Stacie Torres DMD Work [facility] 01-08-2024 11:04-0400 Body weight 69.4 kg Stacie Torres DMD Work Phone: [facility] 01-05-2024 10:22-0400 Body height 152.4 cm Amy Gillarnold TRAIN STATION SERVER Work Phone: [facility] 01-05-2024 10:22-0400 Body mass index (BMI) [Ratio] 33.98 kg/m2 Amy Orantesr TRAIN STATION SERVER Work Phone: [facility] 01-05-2024 10:22-0400 Body weight 78.93 kg Amy Orantesr TRAIN STATION SERVER Work Phone: [facility] 01-05-2024 10:22-0400 Diastolic blood pressure 80 mm[Hg] Amy Orantesr TRAIN STATION SERVER Work Phone: [facility] 01-05-2024 10:22-0400 Systolic blood pressure 118 mm[Hg] Amy Orantesr TRAIN STATION SERVER Work Phone: [facility] 12-28-2023 20:36-0400 Heart rate 75 /min Justensamia Earl ELECTRICAL SYSTEMS DESIGN ENGINEER-[employer] SALES MANAGER Work Phone: [facility] 12-25-2023 10:34-0400 Body height 147.3 cm Víctor Sureshki ELECTRICAL SYSTEMS DESIGN ENGINEER-[employer] SALES MANAGER Work Phone: [facility] 12-25-2023 10:34-0400 Body mass index (BMI) [Ratio] 31.98 kg/m2 Edsamia Demetriceliliana ELECTRICAL SYSTEMS DESIGN ENGINEER-[employer] SALES MANAGER [facility] 12-25-2023 10:34-0400 Body temperature 98.91 [degF] Justensamia Demetriceki ELECTRICAL SYSTEMS DESIGN ENGINEER-[employer] SALES MANAGER [facility] 12-25-2023 10:34-0400 Body weight 69.4 kg Justenward Demetriceki ELECTRICAL SYSTEMS DESIGN ENGINEER-[employer] AND [employer] SALES MANAGER Work Phone: [employer] 12-25-2023 10:34-0400 Diastolic blood pressure 61 mm[Hg] Víctor Elliott ELECTRICAL SYSTEMS DESIGN ENGINEER-[employer] AND [employer] SALES MANAGER [facility] 12-25-2023 10:34-0400 Heart rate 86 /min Edsamia Elliott ELECTRICAL SYSTEMS DESIGN ENGINEER-[employer] AND [employer] SALES MANAGER [facility] 12-25-2023 10:34-0400 Respiratory rate 16 /min Víctor Elliott ELECTRICAL SYSTEMS DESIGN ENGINEER-[employer] AND [employer] SALES MANAGER Work Phone: [facility] 12-25-2023 10:34-0400 SaO2% (BldA) [Mass fraction] 99 % Víctor Elliott ELECTRICAL SYSTEMS DESIGN ENGINEER-[employer] SALES MANAGER Work Phone: [facility] 12-25-2023 10:34-0400 Systolic blood pressure 94 mm[Hg] Víctor Elliott ELECTRICAL SYSTEMS DESIGN ENGINEER-[employer] SALES MANAGER Work Phone: [facility] 09-16-2023 09:00-0400 Diastolic blood pressure 61 mm[Hg] Mohamad Mouchli [facility] 09-16-2023 09:00-0400 Heart rate 70 /min Mohamad Mouchli [facility] 09-16-2023 09:00-0400 Mean blood pressure 74 mm[Hg] Mohamad Mouchli [facility] 09-16-2023 09:00-0400 Systolic blood pressure 99 mm[Hg] Mohamad Mouchli [facility] 09-16-2023 08:50-0400 Blood Pressure Location Mohamad Mouchli [facility] 09-16-2023 08:50-0400 Diastolic blood pressure 68 mm[Hg] Mohamad Mouchli [facility] 09-16-2023 08:50-0400 Heart rate 72 /min Mohamad Mouchli [facility] 09-16-2023 08:50-0400 Mean blood pressure 79 mm[Hg] Mohamad Mouchli [facility] 09-16-2023 08:50-0400 Respiratory rate 12 /min Mohamad Mouchli [facility] 09-16-2023 08:50-0400 SaO2% (BldA) [Mass fraction] 96 % Mohamad Mouchli [facility] 09-16-2023 08:50-0400 Systolic blood pressure 100 mm[Hg] Mohamad Mouchli [facility] 09-16-2023 08:45-0400 Diastolic blood pressure 83 mm[Hg] Mohamad Mouchli [facility] 09-16-2023 08:45-0400 Heart rate 86 /min Mohamad Mouchli [facility] 09-16-2023 08:45-0400 Mean blood pressure 88 mm[Hg] Mohamad Mouchli [facility] 09-16-2023 08:45-0400 Respiratory rate 17 /min Mohamad Mouchli [facility] 09-16-2023 08:45-0400 SaO2% (BldA) [Mass fraction] 97 % Mohamad Mouchli [facility] 09-16-2023 08:45-0400 Systolic blood pressure 98 mm[Hg] Mohamad Mouchli [facility] 09-16-2023 08:35-0400 Body temperature 98.06 [degF] Mohamad Mouchli [facility] 09-16-2023 07:39-0400 Body temperature 98.06 [degF] Mohamad Mouchli [facility] 09-10-2023 09:10-0400 Blood Pressure Location Mohamad Mouchli [facility] 09-10-2023 09:10-0400 Diastolic blood pressure 67 mm[Hg] Mohamad Mouchli [facility] 09-10-2023 09:10-0400 Heart rate 91 /min Jessee Nina [facility] 09-10-2023 09:10-0400 Respiratory rate 16 /min Jessee Nina [facility] 09-10-2023 09:10-0400 Systolic blood pressure 113 mm[Hg] Jessee Nina [facility] Encounters Encounter Date Encounter Type Care Provider Facility Start: 01-25-2025 End: 01-25-2025 Patient encounter procedure Moo Schilling DMD, MD Work Phone: 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 Pre-Admission Testing Start: 01-09-2025 End: 01-09-2025 Telephone encounter Susie Dumont RN [facility] Pre-Admission Testing Start: 01-04-2025 End: 01-04-2025 Nursing evaluation of patient and report Radha Evans RN [facility] Pre-Admission Testing Comment on above: Pre-op evaluation (P rimary Dx) Start: 01-04-2025 End: 01-04-2025 Preprocedural examination done Radha Evans RN [facility] Start: 01-04-2025 ambulatory UNKNOWN PROVIDER Facili ty:[facility] Start: 01-04-2025 Encounter for other preprocedural examination RADHA WhaleyKelly TARSHASHIRLEY [facility] Start: 11-02-2024 End: 11-02-2024 Letter encounter Moo Schilling DMD, MD Work Phone: [facility] Start: 11-02-2024 End: 11-02-2024 Telephone encounter Gabriela Kerns RN Work Phone: [facility] Comment on above: Cancel Appointment Start: 10-28-2024 End: 10-28-2024 Telephone encounter Mignon Tabor RN [facility] Pre-Admission Testing Comment on above: PAT (Surgery informa tion) Start: 10-27-2024 End: 10-27-2024 Telephone encounter Susie Dumont RN [facility] Pre-Admission Testing Start: 10-26-2024 End: 10-26-2024 Telephone encounter Susie Duomnt RN [facility] Pre-Admission Testing Start: 10-15-2024 End: 10-15-2024 Telephone encounter Anjali Evans RN [facility] Comment on above: message to provider Start: 10-12-2024 End: 10-12-2024 Nursing evaluation of patient and report Dacia Martins RN [facility] [place] Pre-Admission Testing Comment on above: Pre-op evaluation (P rimary Dx) Start: 10-12-2024 End: 10-12-2024 Preprocedural examination done Dacia Martins RN [facility] Start: 10-12-2024 ambulatory MOO SCHILLING Facility: [facility] Start: 09-29-2024 End: 09-29-2024 Bamboo flowsheet Amy Farooq TRAIN STATION SERVER Work Phone: [facility] Start: 09-29-2024 End: 09-29-2024 Bamboo flowsheet Amy Farooq TRAIN STATION SERVER Work Phone: [facility] Start: 09-29-2024 End: 09-29-2024 Office outpatient visit 25 minutes Amy Farooq TRAIN STATION SERVER Work Phone: [facility] Comment on above: Seizure disorder (CM S/HCC) (Primary Dx); Cerebral palsy, unspecified type (CMS/HCC); Mental impairment (CMS/HCC); Other conduct disorders Start: 09-29-2024 End: 09-29-2024 ambulatory AMY DE LEONARNOLD Not Available Start: 07-13-2024 End: 07-14-2024 Telephone encounter Moo Schilling DMD, MD Work Phone: [facility] Comment on above: pt requested call Start: 07-13-2024 End: 07-25-2024 Patient encounter procedure Moo Schilling DMD, MD Work Phone: 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; Body mass index (BMI) 31.0-31.9, adult Start: 07-13-2024 End: 07-25-2024 ambulatory MOO SCHILLING Facility:[facility] Start: 04-07-2024 End: 04-07-2024 Bamboo flowsheet Amy Farooq TRAIN STATION SERVER Work Phone: [facility] Start: 04-07-2024 End: 04-07-2024 Bamboo flowsheet Amy Farooq TRAIN STATION SERVER Work Phone: [facility] Start: 04-07-2024 End: 04-07-2024 ambulatory AMY DE LEONBUDR Not Available Start: 04-07-2024 End: 04-07-2024 Office outpatient visit 25 minutes Amy Farooq TRAIN STATION SERVER Work Phone: [facility] Comment on above: Seizure disorder (CM S/HCC) (Primary Dx); Cerebral palsy, unspecified type (CMS/HCC); Mental impairment (CMS/HCC) Start: 02-03-2024 End: 02-03-2024 Refill Chandler Marin DDS Work Phone: [facility] Comment on above: Refill Start: 01-11-2024 End: 01-11-2024 Telephone encounter Stacie Torres DMD Work Phone: [facility] Comment on above: Referral needs place d for OS Start: 01-08-2024 End: 01-08-2024 Patient encounter procedure Stacie Torres DMD Work Phone: [facility] Comment on above: Arrived Start: 01-08-2024 End: 01-08-2024 Subsequent hospital visit by physician Stacie Torres DMD Work Phone: [facility] Start: 01-06-2024 End: 01-06-2024 Telephone encounter Bronwyn Pradhan RN [facility] Pre-Admission Testing Comment on above: Pre-surgical Evaluat ion (DD adult dental restorations 01/07 under [place] at [place]. PAT completed - consents obtained. MARY RN spoke to Cassidy, confirmed NPO except water only until 0900 (Cassidy stated pt does not like and will not drink water), [place] address, and 1100 arrival time/) Start: 01-05-2024 End: 01-05-2024 Bamboo flowsheet Amy Farooq TRAIN STATION SERVER Work Phone: [facility] Start: 01-05-2024 End: 01-05-2024 Bamboo flowsheet Amy Farooq TRAIN STATION SERVER Work Phone: [facility] Start: 01-05-2024 End: 01-05-2024 Office outpatient visit 25 minutes Amy Farooq TRAIN STATION SERVER Work Phone: [facility] Comment on above: Seizure disorder (CM S/HCC) (Primary Dx); Mental impairment (CMS/HCC); Other conduct disorders (CMS/HCC); Cerebral palsy, unspecified type (CMS/HCC); Weight loss; Anorexia; Other bipolar disorder (CMS/HCC) Start: 01-05-2024 End: 01-05-2024 ambulatory AMY FAROOQ Not Available Start: 12-28-2023 End: 12-28-2023 Telephone encounter Susie Dumont RN [facility] Pre-Admission Testing Start: 12-25-2023 End: 12-28-2023 Patient encounter procedure Víctor Elliott ELECT[employer]ICAL [employer]S DESIGN ENGINEER-[employer] SALES MANAGER Work Phone: [facility] Comment on above: Preop testing (Prima ry Dx); Body mass index (BMI) 31.0-31.9, adult Preop testing (Prima ry Dx); Body mass index (BMI) 31.0-31.9, adult; Abnormal electrocardiogram (ECG) (EKG); Abnormal electrocardiogram (ECG) (EKG) Start: 12-25-2023 End: 12-28-2023 Patient encounter status Víctor Elliott ELECTRICAL SYSTEMS DESIGN ENGINEER-[employer] SALES MANAGER Work Phone: [facility] Work Phone: Start: 09-23-2023 End: 09-24-2023 ambulatory Jessee Nina Facility:[facility] Start: 09-23-2023 End: 09-23-2023 Patient encounter procedure Jessee Nina [facility] Start: 09-16-2023 End: 09-17-2023 ambulatory Jessee Nina Facility:[facility] Start: 09-16-2023 End: 09-16-2023 Patient encounter procedure Jessee Nina [facility] Start: 09-10-2023 End: 09-11-2023 ambulatory Jessee Nina Facility:[facility] Start: 09-10-2023 End: 09-10-2023 Patient encounter procedure Jessee Nina [facility] Start: 09-09-2023 ambulatory Jessee Nina Facilit y:[facility] Start: 04-01-2023 End: 04-02-2023 ambulatory STEF ARGUETA Facility:[facility] Start: 04-01-2023 End: 04-01-2023 Lab Drop off STEF ARGUETA [facility] Start: 01-14-2023 End: 01-15-2023 ambulatory STEF ARGUETA Facility:[facility] Start: 01-14-2023 End: 01-14-2023 Lab Drop off STEF ARGUETA [facility] Start: 10-01-[address] STEF ARGUETA Fac ility:[facility] Start: 09-16-2022 End: 09-17-[address] STEF ARGUETA Facility:[facility] Start: 08-19-2022 End: 08-19-[address] STEF ARGUETA Facility:[facility] Start: 07-22-2022 End: 07-25-2022 Patient encounter procedure Kary Proctorobrial DDS Work Phone: [facility] Start: 06-08-2022 Letter encounter Rm Goldman DDS Work Phone: [facility] Start: 04-29-2022 End: 04-30-[address] STEF ARGUETA Facility:[facility] Procedures Date Procedure Procedure Detail Performing Clinician Start: 01-18-2025 Urine test visual color cmprsn meths Emerson Quick DMD Work Phone: Start: 01-08-2024 Gonadotropin chorionic quantitative Kim lorie Shin MD Work Phone: Start: 12-25-2023 Blood count complete automated Víctor brock ELECTRICAL [employer]S DESIGN ENGINEER-[employer] SALES MANAGER Work Phone: Start: 12-25-2023 Ecg routine ecg w/least 12 lds trcg only w/o i&r Víctor Elliott ELECTRICAL SYSTEMS DESIGN ENGINEER-[employer] SALES MANAGER Work Phone: Start: 09-16-2023 Esophagogastroduodenoscopy Jessee armstrong Plan of Treatment Date Care Activity Detail Author Start: 2035 Shingles (RZV) Vacci ne (1 of 2) Shingles (RZV) Vaccine (1 of 2) [facility] Start: 08-14-2032 Tetanus vaccination Tetanus (T d or Tdap) Booster [facility] Start: 02-15-2025 Influenza vaccination Influenza Vacc ine (#1) [facility] Start: 01-25-2025 End: 01-25-2025 Patient encounter procedure 01/25/2025 10:10 AM EDT Office Visit [facility] [address] [place] [id number] Moo Schilling DMD, MD [address] [place] [address] [facility] Start: 01-18-2025 End: 01-18-2025 Admission to same day surgery center [address] [facility] [place] Comment on above: EXTRACTION, TEETH: # 12,#13,#14 Start: 01-18-2025 End: 01-18-2025 Anesthesia consultation [address] [facility] [facility] [place] Start: 01-18-2025 Subsequent hospital visit by physician [address] [facility] [place] Start: 01-18-2025 End: 01-18-2025 Unlisted procedure dentoalveolar structures [address] Start: 01-18-2025 End: 01-18-2025 Admission to same day surgery center 01/18/2025 10:58 AM EDT - 01/18/2025 12:21 PM EDT Surgery [address] [facility] [place] [address] [place] [address] Moo Schilling DMD, MD [address] [place] [address] EXTRACTION, TEETH: #12,#13,#[address] [facility] [place] Comment on above: EXTRACTION, TEETH: # 12,#13,#14 Start: 01-18-2025 End: 01-18-2025 Anesthesia consultation 01/18/2025 10:58 AM EDT Anesthesia Event [address] [facility] [place] [address] [place] [address] Jazmin Treviño MD [address] [place] [address] [place] [address] [facility] [place] Start: 01-18-2025 Subsequent hospital visit by physician 01/18/2025 10:58 AM EDT Hospital Encounter [place] [id number] [place] [address] [address] Moo Schilling DMD, MD [address] [place] [id number] 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 Oral Surgery [address] [place] [address] Moo Schilling DMD, MD [address] [place] [address] [facility] Surgery Start: 11-16-2024 End: 11-16-2024 Patient encounter procedure 11/16/2024 11:00 AM EDT Procedure Visit [facility] [address] [place] [address] Maria Betancur DDS [address] [place] [id number] [facility] Start: 11-14-2024 End: 11-14-2024 Patient encounter procedure 11/14/2024 11:30 AM EDT Office Visit [facility] Oral Surgery [address] [place] [id number] Moo Schilling DMD, MD [address] [place] [address] [facility] Surgery Start: 11-02-2024 End: 11-02-2024 Admission to same day surgery center [address] [facility] [place] Comment on above: EXTRACTION, TEETH: # 12,#13,#14 Start: 11-02-2024 End: 11-02-[address] [facility] Start: 11-02-2024 Subsequent hospital visit by physician [address] [facility] [place] Start: 11-02-2024 End: 11-02-2024 Unlisted procedure dentoalveolar structures [address] Start: 11-02-2024 End: 11-02-2024 Admission to same day surgery center 11/02/2024 10:16 AM EDT - 11/02/2024 11:39 AM EDT Surgery [address] [facility] [place] [address] [place] [address] Moo Schilling DMD, MD [address] [place] [id number] EXTRACTION, TEETH: #12,#13,#[address] [facility] [place] Comment on above: EXTRACTION, TEETH: # 12,#13,#14 Start: 11-02-2024 End: 11-02-2024 Anesthesia consultation 11/02/2024 10:16 AM EDT Anesthesia Event [facility] [place] [address] [place] [address] Jazmin Treviño MD [address] [facility] [place] [address] [facility] [place] Start: 11-02-2024 Subsequent hospital visit by physician 11/02/2024 10:16 AM EDT [facility] [place] [address] [place] [address] Moo Schilling DMD, MD [address] [place] [address] 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 Start: 01-17-2024 COVID-19 Vaccine ( season) COVID-19 Vaccine ( season) [facility] Start: 01-17-2024 Influenza vaccination Influenza Vacc ine (#1) [facility] Start: 01-08-2024 End: 01-08-2024 DENTAL RESTORATIONS DENTAL RESTORATIONS Routine scheduled Caries 01/08/2024 2:[address] [facility] Start: 01-08-2024 End: 01-08-2024 Admission to same day surgery center 01/08/2024 11:28 AM EDT - 01/08/2024 1:23 PM EDT Surgery [facility] [address] [place] [address] Stacie Torres DMD [address] [place] [address] DENTAL RESTORATIONS [facility] Comment on above: DENTAL RESTORATIONS Start: 01-08-2024 End: 01-08-2024 DENTAL RESTORATIONS DENTAL RESTORATIONS Routine scheduled Caries 01/08/2024 11:[address] [facility] Start: 01-08-2024 Subsequent hospital visit by physician 01/08/2024 11:28 AM EDT Hospital Encounter [facility] [address] [place] [address] Stacie Torres DMD [address] [place] [address] [facility] Start: 01-08-2024 End: 01-08-2024 Admission to same day surgery center [facility] Comment on above: DENTAL RESTORATIONS Start: 01-08-2024 End: 01-08-[address] [facility] Start: 01-08-2024 Subsequent hospital visit by physician [facility] Start: 01-08-2024 End: 01-08-[address] [facility] Start: 01-05-2024 End: 01-04-2025 Levetiracetam level Levetiracetam level Lab Routine Seizure disorder (CMS/HCC) Expected: 01/05/2024 (Approximate), Expires: 01/04/2025 [facility] Comment on above: Expected: 01/05/2024 (Approximate), Expires: 01/04/2025 Start: 01-05-2024 End: 01-04-2025 Valproic acid level, total Valproic acid level, total Lab Routine Seizure disorder (CMS/HCC) Expected: 01/05/2024 (Approximate), Expires: 01/04/2025 [facility] Work Phone: Comment on above: Expected: 01/05/2024 (Approximate), Expires: 01/04/2025 Start: 01-16-2023 COVID-19 Vaccine ( season) COVID-[address] () [facility] Start: 08-31-2022 Tetanus vaccination Tetanus (T d or Tdap) Booster [facility] Start: 07-22-2022 End: 07-22-2022 Patient encounter procedure 07/22/2022 Procedure Visit Dentistry Diana Horan [facility] [address] [facility] [place] [address] [facility] Start: 02-15-2022 Influenza vaccination Influenza Vacc ine (#1) [facility] Start: 2015 Screening for malign ant neoplasm of cervix [facility] Start: 2012 HPV Vaccine (optiona l start 27-45 years) HPV Vaccine (optional start 27-45 years) [facility] Start: 2006 Screening for malign ant neoplasm of cervix Pap Smear [facility] Start: 2004 Hepatitis A (HAV) Vaccine (optional start 19+ years) Hepatitis A (HAV) Vaccine (optional start 19+ years) [facility] Start: 2004 Hepatitis B vaccination Hepati tis B (HBV) Vaccine (1 of 3 - 19+ 3-dose series) [facility] Start: 2003 Hepatitis C screening Hepatitis C An tibody [facility] Start: 2000 HIV screening HIV Test [facility] Start: 1985 Screening for malign ant neoplasm of breast [facility] Start: 1985 Thyroid stimulating hormone measurement TSH [facility] Ecg routine ecg w/le ast 12 lds trcg only w/o i&r EKG 12 LEAD - PERFORM MUSE Routine Preop testing Ordered: 12/25/2023 [facility] Work Phone: Comment on above: Ordered: 12/25/2023 End: 01-08-2024 Urine test visual color cmprsn meths URINE HCG-IN OFFICE Lab Routine One time for 1 Occurrences starting 01/08/2024 until 01/08/2024 [facility] Work Phone: Comment on above: One time for 1 Occur rences starting 01/08/2024 until 01/08/2024 Immunizations Immunization Date Immunization Notes Care Provider Fa cility 03-03-2024 COVID-19 Vaccine (12 + yrs, Moderna) mRNA, spike protein, LNP, pres. free, 50 mcg/0.5 mL dose (VRD=489) Dacia Martins RN [facility] 03-03-2024 influenza, seasonal, injectable, preservative free Dacia Martins RN [facility] 03-03-2024 influenza virus vaccine, unspecified formulation Amy Farooq TRAIN STATION SERVER Work Phone: [facility] 03-04-2023 influenza virus vaccine, unspecified formulation Gersoncarmelo Budarmando [facility] 03-04-2023 SARS-COV-2 (COVID-19 ) vaccine, mRNA, spike protein, LNP, PF, adam-sucrose, 30 mcg/0.3 mL Amy Farooq TRAIN STATION SERVER Work Phone: [facility] 08-14-2022 SARS-CoV-2 (COVID-19 ) [id number] Jessee Nina [facility] 08-14-2022 tetanus toxoid, redu penelope diphtheria toxoid, and acellular pertussis vaccine, adsorbed Rosettealma delia Nina [facility] 03-05-2022 influenza virus vaccine, unspecified formulation Gersoncarmelo Budarmando [facility] 03-05-2022 SARS-CoV-2 (COVID-19 ) [id number] Jessee Budarmando [facility] Comment on above: Result Comment: 2023: TPVALL 03-13-2021 influenza, injectabl e, quadrivalent, preservative free Rm Goldman DDS Work Phone: [facility] 03-13-2021 SARS-CoV-2 (COVID-19 ) mRNA BNT-162b2 vax Gersoncarmelo Alnathaniel [facility] Comment on above: Result Comment: 2023: TPV3 03-13-2021 influenza virus vaccine, unspecified formulation Rm Goldman DDS Work Phone: [facility] 06-19-2020 Pfizer (12+ yrs) SARS-COV-2 (COVID-19) vaccine, mRNA, spike protein, LNP, pres. free, 30 mcg/0.3mL dose (GQB=494) Rm Susi DDS Work Phone: [facility] Comment on above: Result Comment: 2023: TPVAL 05-29-2020 Pfizer (12+ yrs) SARS-COV-2 (COVID-19) vaccine, mRNA, spike protein, LNP, pres. free, 30 mcg/0.3mL dose (OYP=054) Rm Susi DDS Work Phone: [facility] Comment on above: Result Comment: 2023: TPVAL 02-22-2020 influenza virus vaccine, unspecified formulation Mohamad Mouchli [facility] 02-22-2020 influenza, injectabl e, quadrivalent, preservative free Rm Susi DDS Work Phone: [facility] 03-11-2019 influenza virus vaccine, unspecified formulation Mohamad Mouchli [facility] 03-11-2019 influenza, injectabl e, quadrivalent, preservative free Rm Susi DDS Work Phone: [facility] 02-24-2018 influenza virus vaccine, unspecified formulation Mohamad Mouchli [facility] 02-24-2018 influenza, injectabl e, quadrivalent, preservative free Rm Susi DDS Work Phone: [facility] 03-11-2017 influenza virus vaccine, unspecified formulation Mohamad Mouchli [facility] 03-11-2017 influenza, injectabl e, quadrivalent, contains preservative Rm Susi DDS Work Phone: [facility] 02-20-2016 influenza virus vaccine, unspecified formulation Mohamad Mouchli [facility] 02-20-2016 influenza, seasonal, injectable Rm Susi DDS Work Phone: [facility] 03-08-2015 influenza virus vaccine, unspecified formulation Mohamad Mouchli [facility] 03-08-2015 influenza, injectabl e, quadrivalent, preservative free Rm Susi DDS Work Phone: [facility] 03-23-2014 influenza virus vaccine, unspecified formulation Mohamad Mouchli [facility] 03-23-2014 influenza, injectabl e, quadrivalent, preservative free Rm Susi DDS Work Phone: [facility] 03-15-2013 influenza virus vaccine, unspecified formulation Mohamad Mouchli [facility] 03-15-2013 influenza, seasonal, injectable Rm Susi DDS Work Phone: [facility] 08-31-2012 tetanus toxoid, redu penelope diphtheria toxoid, and acellular pertussis vaccine, adsorbed Rm Susi DDS Work Phone: [facility] 03-10-2012 influenza virus vaccine, unspecified formulation Mohamad Mouchli [facility] 03-10-2012 influenza, seasonal, injectable Rm Susi DDS Work Phone: [facility] 01-29-2011 influenza virus vaccine, unspecified formulation Mohamad Mouchli [facility] 01-29-2011 influenza, seasonal, injectable Rm Susi DDS Work Phone: [facility] 03-13-2010 influenza virus vaccine, whole virus Rm Susi DDS Work Phone: [facility] 03-13-2010 influenza, whole Mohamad Erica chli [facility] 04-04-2009 novel [id number], preservative-free, injectable Rm Goldman DDS Work Phone: [facility] 03-09-2008 influenza virus vaccine, whole virus Rm Goldman DDS Work Phone: [facility] 03-09-2008 influenza, whole Gersoncarmelo Maldonado iglesiai [facility] 10-01-2006 meningococcal ACWY vaccine, unspecified formulation Mohemanueld Mouchli [facility] 10-01-2006 meningococcal polysaccharide (groups A, C, Y and W-135) diphtheria toxoid conjugate vaccine (MCV4P) Rm Goldman DDS Work Phone: [facility] 09-02-2000 TD(adult) unspecifie d formulation; Translations: [Td(adult) unspecified formulation] Rm Goldman DDS Work Phone: [facility] 07-29-1990 diphtheria, tetanus toxoids and pertussis vaccine Rm Goldman DDS Work Phone: [facility] 07-29-1990 trivalent poliovirus vaccine, live, oral Rm Goldman DDS Work Phone: [facility] 11-03-1987 trivalent poliovirus vaccine, live, oral Rmphuong Rodriguezano DDS Work Phone: [facility] 07-02-1987 haemophilus influenz ae type b vaccine, conjugate unspecified formulation Rm Goldman DDS Work Phone: [facility] 07-02-1987 Hib, unspecified formulation Gersoncarmelo Mendozauchli [facility] 05-29-1987 diphtheria, tetanus toxoids and pertussis vaccine Rmphuong Goldman DDS Work Phone: [facility] 05-29-1987 trivalent poliovirus vaccine, live, oral Rm Susi DDS Work Phone: [facility] 11-15-1986 measles, mumps and rubella virus vaccine Rm Glodman DDS Work Phone: [facility] 06-28-1986 trivalent poliovirus vaccine, live, oral Rm Goldman DDS Work Phone: [facility] 1985 diphtheria, tetanus toxoids and pertussis vaccine Rm Goldman DDS Work Phone: [facility] 1985 diphtheria, tetanus toxoids and pertussis vaccine Rm Goldman DDS Work Phone: [facility] 1985 trivalent poliovirus vaccine, live, oral Rm Goldman DDS Work Phone: [facility] 1985 diphtheria, tetanus toxoids and pertussis vaccine Rm Goldman DDS Work Phone: [facility] Payers Date Payer Category Payer Dental --Stand Alone DENTAL-MEDI CAID [id number] 2005 Medicaid [id number] 1985 Unknown [id number] 1985 Unknown [id number] 1985 Unknown [id number] 2.840.1.734241.3.579.2.7 1985 Unknown [id number] 2.16.840.1.516926.3.579.2.7 27 1985 Unknown [id number] 2.16.840.1.388133.3.579.2.7 27 1985 Unknown [id number] 2.16.840.1.174775.3.579.2.7 27 1985 Unknown [id number] 2.16.840.1.496607.3.579.2.1 259 1985 Unknown [id number] 2.16.840.1.937055.3.579.2.1 259 1985 Unknown [id number] 2.16.840.1.624944.3.579.2.1 259 1985 Unknown [id number] 2.16.840.1.564944.3.579.2.7 32 1985 Unknown [id number] 2.16.840.1.939821.3.579.2.7 32 1985 Unknown [id number] 2.16.840.1.658464.3.579.2.7 32 1985 Unknown [id number] 2.16.840.1.013827.3.579.2.7 32 1985 Unknown [id number] 2.16.840.1.154738.3.579.2.7 32 1959 Medicaid [id number] Unknown [id number] 2.16.840.1.609310.3.579.2.5 93 Unknown [id number] 2.16.840.1.372112.3.579.2.5 93 Unknown [id number] 2.16.840.1.681854.3.579.2.5 93 Unknown [id number] 2.16.840.1.353448.3.579.2.5 93 Social History Date Type Detail Facility Start: 02-03-2019 End: 04-07-2024 Tobacco smoking status NHIS [facility] Start: 02-03-2019 End: 04-07-2024 Tobacco use and exposure Smokeless tobacco non-user [facility] Start: 11-06-2020 End: 01-19-2025 Alcohol intake Ex-drinker (finding) [facility] Start: 1985 Sex Assigned At Not on file M [facility] Tobacco smoking status No Smoking Status Entered [facility] Start: 12-25-2023 End: 10-12-2024 Sex Assigned At Female [facility] Tobacco smoking status Never [facility] Start: 12-25-2023 End: 10-12-2024 [address] of [address] [facility] Tobacco smoking status RIIS Tobacco smoking consumption unknown [facility] Start: 10-12-2024 End: 01-19-2025 Details of drug misuse behavior Misused drugs in past (finding) [facility] Start: 03-21-2012 Sex Female (finding) [facility] Functional Status Date Assessment Result Facility 09-16-2023 Functional Status N/A [facility] 09-10-2023 Functional Status N/A 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 ATTENDING SURGEON: Dr. Moo Schilling ? FIRST SURGEON: Dr. Moo Clemow ? SECOND SURGEON: Roibn Roque ? ANESTHESIA: General anesthesia via Laryngeal Mask Airway supplemented with 10 mL of a 50/50 mixture of 1% lidocaine with 1:100,000 epinephrine and 0.5% Marcaine. ? SPECIMENS: N/A ? ESTIMATED BLOOD LOSS: 5 mL. ? IV FLUIDS: 1000 mL. ? FINDINGS: Caries, non-restorable teeth ? DESCRIPTION OF OPERATION: The patient was taken to the operating room on a cart and transferred onto the operating room table under thier own power. The patient was then placed in the supine position. A time-out was conducted to confirm correct patient and procedure to be performed. Anesthesia team, Surgical staff and Nursing team all agreed on correct patient and laterality of the procedure. At this time care of the patient was transferred over to the Anesthesia Service for induction of general anesthetic and intubation. The patient was intubated via Laryngeal Mask Airway. The LMA was secured and care of the patient was transferred back to the Oral Maxillofacial Surgery service for continuation of the procedure. The patient was draped in usual sterile fashion and the oral cavity was suctioned clear and A throat pack placed shallowly in the oropharynx. Simple Tooth Extraction Admin 10 cc of 50/50 mixture 1% lidocaine with 1:100k epi and 0.5% marcaine via local infiltration on buccal and palatal aspect of teeth #12, 13, 14. #9 periosteal elevator used to sharply incisive PDL and reflect mucoperiosteal cuff around #12, 13, 14. Teeth #12, 13, 13 elevated and extracted with forceps. No root tips remaining or sinus exposure detected. The sockets were irrigated with sterile saline. Gel foam packed into sockets. Mucogingival wound closure utilized 3-0 Chromic in uninterrupted fashion. The oral cavity was suctioned clear, gauze throat pack removed. Surgical site hemostatic after firm digital pressure on site for 5-10 minutes. Adjacent teeth notably carious - though non-mobile. After wound closure was accomplished care of the patient was transferred back to the Anesthesia Service for emergence from the general anesthetic and extubation. The patient was extubated without incidence and transferred back to a cart where he was taken to the Post Anesthesia Care Unit for further monitoring. The patient was stable during the entire procedure. There were no complications. Dr. Schilling was present for all critical parts of the procedure. ? ? ? Alfredo Mariee DDS [facility] [place]-3 I was personally present for the michelle portions of the procedure. Moo Schilling DMD, MD 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 PREOPERATIVE DIAGNOSIS: 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 [[id number]] ? POSTOPERATIVE DIAGNOSIS: 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 [[id number]] OPERATION: Extraction of erupted teeth #12, 13, 14 ? ATTENDING SURGEON: Dr. Moo Schilling ? FIRST SURGEON: Dr. Moo Schilling ? SECOND SURGEON: Robin Roque ? ANESTHESIA: General anesthesia via Laryngeal Mask Airway supplemented with 10 mL of a 50/50 mixture of 1% lidocaine with 1:100,000 epinephrine and 0.5% Marcaine. ? SPECIMENS: N/A ? ESTIMATED BLOOD LOSS: 5 mL. ? IV FLUIDS: 1000 mL. ? FINDINGS: Caries, non-restorable teeth ? DESCRIPTION OF OPERATION: The patient was taken to the operating room on a cart and transferred onto the operating room table under [facility] own power. The patient was then placed in the supine position. A time-out was conducted to confirm correct patient and procedure to be performed. Anesthesia team, Surgical staff and Nursing team all agreed on correct patient and laterality of the procedure. At this time care of the patient was transferred over to the Anesthesia Service for induction of general anesthetic and intubation. The patient was intubated via Laryngeal Mask Airway. The LMA was secured and care of the patient was transferred back to the Oral Maxillofacial Surgery service for continuation of the procedure. The patient was draped in usual sterile fashion and the oral cavity was suctioned clear and A throat pack placed shallowly in the oropharynx. Simple Tooth Extraction Admin 10 cc of 50/50 mixture 1% lidocaine with 1:100k epi and 0.5% marcaine via local infiltration on buccal and palatal aspect of teeth #12, 13, 14. #9 periosteal elevator used to sharply incisive PDL and reflect mucoperiosteal cuff around #12, 13, 14. Teeth #12, 13, 13 elevated and extracted with forceps. No root tips remaining or sinus exposure detected. The sockets were irrigated with sterile saline. Gel foam packed into sockets. Mucogingival wound closure utilized 3-0 Chromic in uninterrupted fashion. The oral cavity was suctioned clear, gauze throat pack removed. Surgical site hemostatic after firm digital pressure on site for 5-10 minutes. Adjacent teeth notably carious - though non-mobile. After wound closure was accomplished care of the patient was transferred back to the Anesthesia Service for emergence from the general anesthetic and extubation. The patient was extubated without incidence and transferred back to a cart where he was taken to the Post Anesthesia Care Unit for further monitoring. The patient was stable during the entire procedure. There were no complications. Dr. Schilling was present for all critical parts of the procedure. ? ? ? Alfredo Mariee D[place] [facility] [place] I was personally present for the michelle portions of the procedure. Moo Schilling DMD, MD documented in this encounter [facility] 01-17-2025 Hospital Discharge instructions Marybeth Gautam RN - 01/17/2025 5:24 PM EDT Dental extraction Instructions Biting on Gauze to Control Bleeding Bleeding may occur for some time after you extraction. In most cases this bleeding can be easily controlled by placing a piece of clean gauze DIRECTLY over the empty tooth socket. Then make sure that you bite firmly on this gauze for 30 to 60 minutes. Use the gauze we supplied to you in the bag. Wash your hands with soap and water before touching the gauze and placing it in your mouth. Place the used gauze from your mouth in a plastic bag and dispose the bag in a trash container. Make sure to wash your hands again when you are done touching the used gauze and before touching anything else. If a small amount of bleeding continues after 45 minutes then repeat these instructions. Sometimes biting a tea bag may be helpful in controlling minor bleeding. Very light bleeding for 2 days is not uncommon. If heavy bleeding is still persistent during normal clinic hours than call the Clinic where the extraction was done to speak with an oral surgeon. [facility] [phone]. HELPING THE HEALING PROCESS AND STOPPING THE BLEEDING FOR THE NEXT 24 HOURS (1 DAY) AFTER THE EXTRACTION: DO NOT RINSE YOUR MOUTH OR SPIT 2. DO NOT DRINK ANY HOT LIQUIDS SUCH SOUP, COFFEE, TEA, HOT CHOCOLATE AVOID HEAVY LIFTING, BENDING OR OTHER STENUOUS EXERCISES SLEEP WITH 2 PILLOWS OR IN A RECLINER CHAIR. KEEPING HEAD ELEVATED WILL REDUCE SWELLING. SUTURE WILL DISSOLVE IN 7-10 DAYS FOR THE NEXT 72 HOURS (3 DAYS) AFTER THE EXTRACTION: DO NOT SMOKE OR DRINK ALCOHOL DO NOT DRINK OR SUCK FROM A STRAW OR ANYTHING ELSEDO NOT DRINK. Stitches may have been placed to help healing. Your surgeon will advise you if you need to return to have them removed. TOOTH BRUSHING On the day of the extraction it is best to avoid brushing the teeth right next to the extraction site. On the next day you can start brushing ALL your teeth but in a gentle fashion. Remember to not rinse strongly because it may cause you to start bleeding from the extraction site again. SWELLING AND PAIN After the extraction you may feel some pain and experience some swelling. An ice pack of unopened bag of frozen peas of corn applied to the area should keep the swelling down. Put the ice pack on you face for 10 minutes and then leave it off for the next 20 minutes. You can repeat this patter as you feel is necessary for up to 24 hours after the extraction. To avoid injury, make sure that adults or children avoid biting or chewing on their lips of cheeks, which may be numb following an extraction. If your pain or swelling seems to be getting worse or you feel as though something is not right then call your dentist, as directed above. ANTIBIOTICS AND PAIN MEDICATION If antibiotics have been prescribed then you should take them as directed; this includes taking all the antibiotic (or liquid) pills that were prescribed. If you don't finish them completely a serious infection could result. You may have little of no discomfort after the extraction. If you have minor pain then you may want to take acetaminophen (Tylenol) or ibuprofen (Motrin). It is very important that before taking any medications that you read and follow the directions and warnings that come with these products so you know whether they are right for you and you situation. If you have any questions on whether these medications are right for you, first talk to your doctor or pharmacist before taking the medication. Your surgeon may have given you a written prescription for pain relief. It is important that if you decide to take it you read and understand all the precautions, warnings and directions that come with the medication. If you have any questions on whether the medication is right for you, first talk to your doctor or pharmacist before taking the medication. The pain medication prescription that your dentist gave you may contain a narcotic (like codeine). If so, most narcotic pain medications may upset your stomach. If so, then it is best to take them with food. The pain medication prescription that you were given can also make you drowsy or make you act strangely. If so, you should limit or stop activities such as driving a motor vehicle, operate machinery or other activities that require your full attention. EATING AND DRINKING A soft or liquid diet may be best for you after a difficult extraction. For a simpler extraction just make sure you do your chewing with those teeth that are NOT near the extraction site. POSTOPERATIVE INSTRUCTION AFTER SEDATION / GENERAL ANESTHESIA If you had general anesthesia of IV sedation, do not drive or operate machinery for 24 hours. A responsible adult should be with you for the remainder of the day. When starting oral intake, be sure to consume CLEAR LIQUIDS first. Clear liquids consist of water, Sprite, valorie nuno, Jell-O, and non-pulp containing juices such as cranberry and apple juice. Once tolerating clear-liquids, you may advance your diet. Be sure to follow the specific diet instructions from your doctor according to the type of surgery you have had. It is important that you take any narcotic containing pain medications with food. Patients should not participate in any strenuous activity. Standing and sitting up too quickly following surgery can also result in dizziness and exacerbate these problems. It is also important that patients be supervised for an appropriate amount of time following sedation in order to ensure that they remain safe in the post-operative period. Under NO circumstances should a patient drive the day of surgery or participate in any important decisions. NAUSEA & VOMITING Nausea is not uncommon after surgery. Sometimes pain medications may be the cause. In the event of nausea and/or vomiting following surgery, do not take anything by mouth for at least an hour including the prescribed medicine. You should then sip on Coke, tea, or valorie nuno. You should sip slowly over a 15-minute period. When the nausea subsides, you can begin taking solid foods and the prescribed medicine. You may take the anti-nausea medication if prescribed. If the above is not helpful, contact your surgeon. Please if you have any questions or concerns please contact us: [facility] . 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 cell tuber machine Clinic Hours: Mon-Fri 8:30 am to 4:30 pm. The following attachments cannot be sent through Care Everywhere.General anesthesia in adults Discharge instructions ([facility])Managing pain after surgery ([facility])Nausea and vomiting after surgery ([facility])documented in this encounter [facility] 01-17-2025 History and physical note Images from the original note were not included. Surgical History and Physical [facility] [place] [address] Name: Vee Sarabia : 1985 39 year old CSN: [id number] Attending: Moo Schilling DMD, MD Date of Admission: No admission date for patient encounter. Room/Bed: [facility] OR /NONE Planned Procedure: Procedure(s): EXTRACTION, TEETH: #12,#13,#14 HPI: Vee Sarabia is a 39 year old female with Pre-Op Diagnosis Codes: * Caries [K02.9] * 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 [K02.9]. Past Medical History: Medical History[1] Past Surgical History: Review of patient's past surgical history indicates: CHOLECYSTECTOMY (2008) OSH H+P 01/25/19 DENTAL RESTORATIONS (02/11/2019) Procedure: DENTAL RESTORATIONS; Surgeon: Fernando Kurtz DDS; Location: [facility] [place]; Service: Dental DENTAL RESTORATIONS (11/05/2020) Procedure: DENTAL RESTORATIONS; Surgeon: Dru Friedman DDS; Location: [facility] [place]; Service: Dental DENTAL RESTORATIONS (01/08/2024) Procedure: DENTAL RESTORATIONS; Surgeon: Stacie Torres DMD; Location: [facility] [place]; Service: Dental Medications: No current facility-administered medications for this encounter. Current Outpatient Medications Medication Sig Dispense Refill cyproheptadine (PERIACTIN) 4 MG tablet Take 4 mg by mouth at bedtime. Cariprazine HCl (Vraylar) 6 MG CAPS capsule guaifenesin-dextromethorphan (MUCINEX DM) 30-600 MG tablet Promethazine HCl (PHENERGAN INJ) Take by mouth. risperiDONE (RISPERDAL) 3 MG tablet D3-1000 25 MCG (1000 UT) CAPS capsule divalproex ER (DEPAKOTE ER) 250 MG ER tablet at bedtime. divalproex ER (DEPAKOTE ER) 500 MG ER tablet Linzess 290 MCG CAPS capsule Take 290 mcg by mouth daily. lurasidone (LATUDA) 80 MG tablet Take 1 Tablet by mouth. pantoprazole (PROTONIX) 40 MG tablet CARBAMAZEPINE ORAL Take by mouth. (Patient not taking: Reported on 10/12/2024) Calcium Carb-Cholecalciferol (Oyster Shell Calcium w/D) 500-5 MG-MCG TABS chlorhexidine (Peridex) 0.12 % oral solution Swish mouth with 15 mL by mouth 2 times daily. DO NOT SWALLOW 473 mL 3 medroxyPROGESTERone (Depo-Provera) 150 MG/ML injection Inject 150 mg into the muscle once. (Patient not taking: Reported on 10/12/2024) ondansetron (Zofran) 4 MG tablet Take 4 [...] by mouth daily. Take at 4 pm loratadine (CLARITIN) 10 MG tablet Take [...] take 2 capsules by mouth every morning. Family History: Family History[2] Social History: Social History[3] Allergies: Benadryl [diphenhydramine], Chloral hydrate, Octacosanol, and Valium [diazepam] Vitals Signs: There were no vitals taken for this visit. ROS: Denies fever, chills, chest pain, SOB, palpitations. Objective Physical Exam: Gen: Laying comfortable in bed, no acute distress. Eyes: Normal, PERRL, and EOM's intact Pulm: Chest clear to auscultation bilaterally and Denies fever, chills, cough, shortness of breath CV: No murmurs, gallops, or rubs Abd: Soft and non-tender Neuro: Awake, alert, oriented and Sensation grossly intact Skin: No gross or obvious abnormalities on visible skin Psych: Patient has mild cognitive impairment, but to cooperative to the procedure Imaging: Caries involving teeth #12,13,14 (non-restorable) Laboratory Values and Test Results: No results found for this or any previous visit (from the past 16408 hours). BMP (last 3 years, up to 8 values) 12/25/2023 10:41 AM Na 134 K 4.4 Cl 102 CO2 23 Gap 13 Glu 85 BUN 7 Cr 0.36 Ca 9.0 eGFR 133 No results found for this or any previous visit (from the past 8760 hours). ASSESSMENT & PLAN Assessment: Vee Sarabia is a 39 year old female with Pre-Op Diagnosis Codes: * Caries [K02.9] * 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 [K02.9]. Plan: I have personally reviewed the patient's medical history and performed the physical examination below immediately before the procedure. Medications, allergies, and pertinent laboratory and diagnostic tests were also reviewed at this time. Procedure is still indicated. Yes Seen an evaluated by Robin De La Cruz DDS. Discussed with attending Moo Schilling DMD, MD. 01/17/25 5:19 PM [1] Past Medical History: Diagnosis Date ADHD (attention deficit hyperactivity disorder) OSH H+P 01/25/19 Anemia OSH H+P 01/25/19 Autism (HCC) OSH H+P 01/25/19 Autism spectrum disorder (HCC) 07/13/2024 Cerebral palsy (HCC) Mild, OSH H+P 01/25/19 Cholelithiasis OSH H+P 01/25/19 Chronic constipation OSH H+P 01/25/19 Disruptive behavior disorder OSH H+P 01/25/19 Dyspepsia OSH H+P 01/25/19 Hypothyroid OSH H+P 01/25/19 Hypothyroidism, unspecified 09/22/2022 Impulse control disorder OSH H+P 01/25/19 Intermittent explosive disorder OSH H+P 01/25/19 Myopia OSH H+P 01/25/19 Osteopenia OSH H+P 01/25/19 Other bipolar disorder (HCC) 10/08/2007 Pervasive developmental disorder (HCC) OSH H+P 01/25/19 Seasonal allergies OSH H+P 01/25/19 Seizure disorder (HCC) OSH H+P 01/25/19 Severe intellectual disability OSH H+P 01/25/19 [2] No family history on file. [3] Social History Socioeconomic History Marital status: Single Tobacco Use Smoking status: Never Smokeless tobacco: Never Substance and Sexual Activity Alcohol use: Not Currently Drug use: Not Currently Cosigned by Moo Schilling DMD, MD at 01/18/2025 12:39 PM EDT [facility] Work Phone: 01-17-2025 Note Surgical History and Physical [facility] OR [address] [address] Name: Vee Sarabia : 1985 39 year old CSN: [id number] Attending: Moo Schilling DMD, MD Date of Admission: No admission date for patient encounter. Room/Bed: [facility] OR /NONE Planned Procedure: Procedure(s): EXTRACTION, TEETH: #12,#13,#14 HPI: Vee Sarabia is a 39 year old female with Pre-Op Diagnosis Codes: * Caries [K02.9] * 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 [K02.9]. Past Medical History: Medical History[1] Past Surgical History: Review of patient's past surgical history indicates: CHOLECYSTECTOMY (2008) OSH H+P 01/25/19 DENTAL RESTORATIONS (02/11/2019) Procedure: DENTAL RESTORATIONS; Surgeon: Fernando Kurtz DDS; Location: [facility] [place]; Service: Dental DENTAL RESTORATIONS (11/05/2020) Procedure: DENTAL RESTORATIONS; Surgeon: Dru Friedman DDS; Location: [facility] [place]; Service: Dental DENTAL RESTORATIONS (01/08/2024) Procedure: DENTAL RESTORATIONS; Surgeon: Stacie Torres DMD; Location: [facility] [place]; Service: Dental Medications: No current facility-administered medications for this encounter. Current Outpatient Medications Medication Sig Dispense Refill cyproheptadine (PERIACTIN) 4 MG tablet Take 4 mg by mouth at bedtime. Cariprazine HCl (Vraylar) 6 MG CAPS capsule guaifenesin-dextromethorphan (MUCINEX DM) 30-600 MG tablet Promethazine HCl (PHENERGAN INJ) Take by mouth. risperiDONE (RISPERDAL) 3 MG tablet D3-1000 25 MCG (1000 UT) CAPS capsule divalproex ER (DEPAKOTE ER) 250 MG ER tablet at bedtime. divalproex ER (DEPAKOTE ER) 500 MG ER tablet Linzess 290 MCG CAPS capsule Take 290 mcg by mouth daily. lurasidone (LATUDA) 80 MG tablet Take 1 Tablet by mouth. pantoprazole (PROTONIX) 40 MG tablet CARBAMAZEPINE ORAL Take by mouth. (Patient not taking: Reported on 10/12/2024) Calcium Carb-Cholecalciferol (Oyster Shell Calcium w/D) 500-5 MG-MCG TABS chlorhexidine (Peridex) 0.12 % oral solution Swish mouth with 15 mL by mouth 2 times daily. DO NOT SWALLOW 473 mL 3 medroxyPROGESTERone (Depo-Provera) 150 MG/ML injection Inject 150 mg into the muscle once. (Patient not taking: Reported on 10/12/2024) ondansetron (Zofran) 4 MG tablet Take 4 [...] by mouth daily. Take at 4 pm loratadine (CLARITIN) 10 MG tablet Take [...] take 2 capsules by mouth every morning. Family History: Family History[2] Social History: Social History[3] Allergies: Benadryl [diphenhydramine], Chloral hydrate, Octacosanol, and Valium [diazepam] Vitals Signs: There were no vitals taken for this visit. ROS: Denies fever, chills, chest pain, SOB, palpitations. Objective Physical Exam: Gen: Laying comfortable in bed, no acute distress. Eyes: Normal, PERRL, and EOM's intact Pulm: Chest clear to auscultation bilaterally and Denies fever, chills, cough, shortness of breath CV: No murmurs, gallops, or rubs Abd: Soft and non-tender Neuro: Awake, alert, oriented and Sensation grossly intact Skin: No gross or obvious abnormalities on visible skin Psych: Patient has mild cognitive impairment, but to cooperative to the procedure Imaging: Caries involving teeth #12,13,14 (non-restorable) Laboratory Values and Test Results: No results found for this or any previous visit (from the past 22634 hours). BMP (last 3 years, up to 8 values) 12/25/2023 10:41 AM Na 134 K 4.4 Cl 102 CO2 23 Gap 13 Glu 85 BUN 7 Cr 0.36 Ca 9.0 eGFR 133 No results found for this or any previous visit (from the past 8760 hours). ASSESSMENT AND PLAN Assessment: Vee Sarabia is a 39 year old female with Pre-Op Diagnosis Codes: * Caries [K02.9] * 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 [K02.9]. Plan: I have personally reviewed the patient's medical history and performed the physical examination below immediately before the procedure. Medications, allergies, and pertinen (more content not included)... [facility] History and physical note Images from the original note were not included. Surgical History and Physical [facility] [place] [address] [address] Name: Vee Sarabia : 1985 39 year old CSN: [id number] Attending: Moo Schilling DMD, MD Date of Admission: No admission date for patient encounter. Room/Bed: [facility] OR /NONE Planned Procedure: Procedure(s): EXTRACTION, TEETH: #12,#13,#14 HPI: Vee Sarabia is a 39 year old female with Pre-Op Diagnosis Codes: * Caries [K02.9] * 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 [K02.9]. Past Medical History: Medical History[1] Past Surgical History: Review of patient's past surgical history indicates: CHOLECYSTECTOMY (2008) OSH H+P 01/25/19 DENTAL RESTORATIONS (02/11/2019) Procedure: DENTAL RESTORATIONS; Surgeon: Fernando Kurtz DDS; Location: [facility] [place]; Service: Dental DENTAL RESTORATIONS (11/05/2020) Procedure: DENTAL RESTORATIONS; Surgeon: Dru Friedman DDS; Location: [facility]; Service: Dental DENTAL RESTORATIONS (01/08/2024) Procedure: DENTAL RESTORATIONS; Surgeon: Stacie Torres DMD; Location: [facility] [place]; Service: Dental Medications: No current facility-administered medications for this encounter. Current Outpatient Medications Medication Sig Dispense Refill cyproheptadine (PERIACTIN) 4 MG tablet Take 4 mg by mouth at bedtime. Cariprazine HCl (Vraylar) 6 MG CAPS capsule guaifenesin-dextromethorphan (MUCINEX DM) 30-600 MG tablet Promethazine HCl (PHENERGAN INJ) Take by mouth. risperiDONE (RISPERDAL) 3 MG tablet D3-1000 25 MCG (1000 UT) CAPS capsule divalproex ER (DEPAKOTE ER) 250 MG ER tablet at bedtime. divalproex ER (DEPAKOTE ER) 500 MG ER tablet Linzess 290 MCG CAPS capsule Take 290 mcg by mouth daily. lurasidone (LATUDA) 80 MG tablet Take 1 Tablet by mouth. pantoprazole (PROTONIX) 40 MG tablet CARBAMAZEPINE ORAL Take by mouth. (Patient not taking: Reported on 10/12/2024) Calcium Carb-Cholecalciferol (Oyster Shell Calcium w/D) 500-5 MG-MCG TABS chlorhexidine (Peridex) 0.12 % oral solution Swish mouth with 15 mL by mouth 2 times daily. DO NOT SWALLOW 473 mL 3 medroxyPROGESTERone (Depo-Provera) 150 MG/ML injection Inject 150 mg into the muscle once. (Patient not taking: Reported on 10/12/2024) ondansetron (Zofran) 4 MG tablet Take 4 [...] by mouth daily. Take at 4 pm loratadine (CLARITIN) 10 MG tablet Take [...] take 2 capsules by mouth every morning. Family History: Family History[2] Social History: Social History[3] Allergies: Benadryl [diphenhydramine], Chloral hydrate, Octacosanol, and Valium [diazepam] Vitals Signs: There were no vitals taken for this visit. ROS: Denies fever, chills, chest pain, SOB, palpitations. Objective Physical Exam: Gen: Laying comfortable in bed, no acute distress. Eyes: Normal, PERRL, and EOM's intact Pulm: Chest clear to auscultation bilaterally and Denies fever, chills, cough, shortness of breath CV: No murmurs, gallops, or rubs Abd: Soft and non-tender Neuro: Awake, alert, oriented and Sensation grossly intact Skin: No gross or obvious abnormalities on visible skin Psych: Patient has mild cognitive impairment, but to cooperative to the procedure Imaging: Caries involving teeth #12,13,14 (non-restorable) Laboratory Values and Test Results: No results found for this or any previous visit (from the past 05909 hours). BMP (last 3 years, up to 8 values) 12/25/2023 10:41 AM Na 134 K 4.4 Cl 102 CO2 23 Gap 13 Glu 85 BUN 7 Cr 0.36 Ca 9.0 eGFR 133 No results found for this or any previous visit (from the past 8760 hours). ASSESSMENT & PLAN Assessment: eVe Sarabia is a 39 year old female with Pre-Op Diagnosis Codes: * Caries [K02.9] * 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 [K02.9]. Plan: I have personally reviewed the patient's medical history and performed the physical examination below immediately before the procedure. Medications, allergies, and pertinent laboratory and diagnostic tests were also reviewed at this time. Procedure is still indicated. Yes Seen an evaluated by Robin De La Cruz DDS. Discussed with attending Moo Schilling DMD, MD. 01/17/25 5:19 PM [1] Past Medical History: Diagnosis Date ADHD (attention deficit hyperactivity disorder) OSH H+P 01/25/19 Anemia OSH H+P 01/25/19 Autism (HCC) OSH H+P 01/25/19 Autism spectrum disorder (HCC) 07/13/2024 Cerebral palsy (HCC) Mild, OSH H+P 01/25/19 Cholelithiasis OSH H+P 01/25/19 Chronic constipation OSH H+P 01/25/19 Disruptive behavior disorder OSH H+P 01/25/19 Dyspepsia OSH H+P 01/25/19 Hypothyroid OSH H+P 01/25/19 Hypothyroidism, unspecified 09/22/2022 Impulse control disorder OSH H+P 01/25/19 Intermittent explosive disorder OSH H+P 01/25/19 Myopia OSH H+P 01/25/19 Osteopenia OSH H+P 01/25/19 Other bipolar disorder (HCC) 10/08/2007 Pervasive developmental disorder (HCC) OSH H+P 01/25/19 Seasonal allergies OSH H+P 01/25/19 Seizure disorder (HCC) OSH H+P 01/25/19 Severe intellectual disability OSH H+P 01/25/19 [2] No family history on file. [3] Social History Socioeconomic History Marital status: Single Tobacco Use Smoking status: Never Smokeless tobacco: Never Substance and Sexual Activity Alcohol use: Not Currently Drug use: Not Currently Cosigned by Moo Schilling DMD, MD at 01/18/2025 12:39 PM EDT documented in this encounter [facility] 01-17-2025 Telephone encounter Note Spoke to Rosemary [facility] Aware of 11:30 time of arrival at [address]. NPO and medication instructions reviewed. [facility] 01-17-2025 Miscellaneous Notes Spoke to Rosemary from [facility]. Aware of 11:30 time of arrival at [address]. NPO and medication instructions reviewed. documented in this encounter [facility] 01-09-2025 Note Anesthesia consent o btained by Dr. Peres for 01/18 procedure and scanned into [facility]. [facility] 01-09-2025 Telephone encounter Note Anesthesia consent obtained by Dr. Peres for 01/18 procedure and scanned into [employer]. [facility] 01-09-2025 Miscellaneous Notes Anesthesia consent obtained by Dr. Peres for 01/18 procedure and scanned into [employer]. documented in this encounter [facility] 08-20-2025 Instructions Radha Evans RN - 01/04/2025 10:10 AM EDT January 04, 2025 Attn: [facility] Nursing Staff Vee Sarabia is scheduled for your procedure/surgery on 01/18/[address] Schilling at the [address] location. You will be contacted on 01/17/2025 between 10-3 PM and provided with your arrival time. [address] [place] [address] Enter through the main entrance, check-in at the operating room desk, 1st floor. PATIENT MEDICATION INSTRUCTIONS: On the morning of your surgery, please take only the following medications, with a small sip of water: lurasidone (LATUDA) 80 MG tablet pantoprazole (PROTONIX) 40 MG tablet montelukast (SINGULAIR) 10 MG tablet famotidine (PEPCID) 20 MG tablet levETIRAcetam (KEPPRA) 500 MG tablet levothyroxine (SYNTHROID) 75 MCG tablet divalproex (DEPAKOTE) 500 MG enteric coated tablet *Please hold Naltrexone 3 days prior to surgery *Last dose 01/14/2025 Please hold vitamin/mineral supplements, and non essential medications i.e. stool softeners, as well as any topical lotions/creams or patches the morning of your surgery/procedure. Do not take any Aspirin 7 days before the surgery. Do not take any Ibuprofen products/NSAIDs 3 days before surgery. May take over the counter Acetaminophen (Tylenol) as needed for pain. Do not take any herbal medications 7 days prior to surgery (Fish Oil, Ginseng, Ginko Biloba) DAY OF SURGERY NOTES: IN BOLD TEXT ? Expect a call from [facility] one business day prior to surgery [...] s office as soon as possible. ? Eating and drinking before surgery: Adult Patients: No solid food or dairy products 8 hours prior to surgery check in time. Sips of plain water are allowed up to 2 hours prior to your procedure/surgery arrival time. A sip of water with approved morning medications is acceptable. Post-op Nausea and Vomiting: A risk of [...] any prolonged PONV and signs of dehydration. Patients whose assigned sex at was female, and are starting puberty or beyond, will be urine tested for per hospital policy. ON THE DAY OF SURGERY: ? DO bring your ID, insurance card, medication list, and a small amount of bai for filling prescriptions and any medical co-pays. ? Do NOT wear any jewelry, (including rings, earrings, or mouth, tongue, or body piercing's). Metal jewelry could cause constriction, amputation, or [...] a car, cab, shared ride service, or [employer]. You will not be allowed to drive yourself home or travel home alone. Your surgery may be cancelled if you do not have a ride. A responsible adult must stay with you after surgery. ? PLEASE BE ON TIME. A late arrival may result in the cancellation/ delay of your surgery. Thank you for choosing [facility]; it is our pleasure to care for you If you become ill prior to procedure or surgery, or a family emergency should arise, please call the provider or surgeon's office directly. documented in this encounter [facility] 01-04-2025 Evaluation note Images from the original note were not included. Telephone History Vee Sarabia, [id number] 01/04/2025 39 year old 146 lbs 4' 10 Patient was identified by name and date of . [facility] [place] [phone] fax [phone] Legal guardian Mom Gabriela Calloway [phone] *Not sure that patient will be able to provide urine sample the day of procedure intermittently continent, [facility] turn around on Labs 72 hours Needs: Physical, Neck Circumference, and BHCG on DOS. Wheel chair Able to ambulate with asst short distances, CP, Sz hx, Intellectual disability If the patient becomes ill prior to procedure or surgery, they are to call their provider or surgeon's office directly. Date of Surgery: 01/18/2025 Surgeon: Pretty Type of Surgery: LEFT EXTRACTION, TEETH: #12,#13,#14 HISTORY OF PRESENT ILLNESS: Telephone history prior to surgery or procedure with anesthesia scheduled at [facility] Partial note 07/13/2024 Oral surgery Clemow 39yoF, PMH remarkable for ADHD, Autism, Cerebral palsy, Impulse control disorder, seizure disorder, osteoporosis (pt has hx of alendronate 5+yrs stopped in 12/2023) , bipolar disorder, referred to [facility] for extraction of teeth #12,13,14. PLAN: Our plan is to extract the teeth under GA @ [facility] due to pt medical history and lack of cooperation. Partial note Neurology 09/29/2024 Oseas 39-year-old female with MRDD and cerebral palsy and symptomatic seizure disorder, behavioral and conduct issues. She can have nystagmas and crossing of her right eye and bilateral. This is evaluated every shift. This is noticed more when she is having behaviors . She was no longer on the lamictal. Latuda was started at this same time. She does continue on the depakote and keppra. I do suspect the lamictal may have given her some seizure coverage and perhaps this discontinuation is the reason along with the affect of latuda can decrease seizure threshold and at prior visit she had some recorded seizure like activity. We did order an amb EEG to [...] added 02/19/[address] Terry Price. This was at a seizure prevention dosing. Then, her visit was moved up as the tegretol was stopped and lithium orderd. She was off the tegretol for 4 days and had a grand mal seizure reported from staff and another event they believe to be seizure. She then had the tegretol restarted and lithium stopped. There was then a phone call December 15, 2023 as she was having increased behaviors to the point that she was pulling out her own hair so therefore they had to practically shave her head. She has always had issues with biting and that was increasing as well. She was spitting and biting her clothes off of herself. Psychiatry had been changing some of her medications around as noted above. They questioned if the Lyrica could be causing the increase in her behaviors. We do not prescribe Lyrica but she had been on it for some time without any dose changes. I do not believe that the Lyrica was the cause. These behaviors continued and Psychiatry has now gotten her off of her Latuda and her Tegretol. Unfortunately she has had a grand mal seizure noted by the home several visits ago. And the night prior to that she was home with her father and he stated she had 1 as well. We did increase her nighttime Depakote and he behaviors have gotten better and one possible seizure noted shortly after increase, none in the last 6 months. She is very pleasant today. Behaviors seem to continue to be doing well. She is now on Risperdal. She is excited today as she is going home for the weekend. Her parents continue to take her home every other weekend. Plan home paperwork reviewed continue with keppra 500 mg po BID Continue depakote ER for seizure prevention 500 mg in am 750 mg at bedtime Continue with Psychiatry monitor for worsening continue exercises call in for any events This was discussed with the patient, all questions were answered and they agreed with the treatment plan. The patient is to call with any worsening of the condition or new symptoms. STOP-BANG Row Name 01/04/25 0947 History of sleep apnea? No Snoring No Tired/Fatigued No Observed Apnea No Pressure: Hypertension No BMI greater than 35 0 Age greater than 50 0 Gender male? 0 Score 0 EXERCISE CAPACITY: <4 mets WC ALLERGIES: Benadryl [diphenhydramine], Chloral hydrate, Octacosanol, and Valium [diazepam] PREVIOUS ANESTHETIC EXPERIENCES AND INTUBATION HISTORY: No previous anesthetic complication FAMILY HISTORY OF ANESTHETIC COMPLICATIONS: No PAST MEDICAL HISTORY: Medical History[1] PROBLEM LIST: Problem List[2] Past Medical History and Review of Systems Pulmonary - negative ROS Comment: Denies SOB, wheezes, fever, chills, increased sputum, or general malaise. Patient denies any current/recent illnesses. Dental ROS (+) teeth problems (caries) Comment: Scheduled LEFT EXTRACTION, TEETH: #12,#13,#14 Endo (+) hypothyroidism, obesity (-) diabetes mellitus, hyperthyroidism perianesthesia nurse Comment: Regular menses LMP 12/14/2024 - patient may be able to provide urine sample Neuro/Psych (+) bipolar disorder, anxiety/panic attacks, seizures (Last Sz 2023), cerebral palsy, attention deficit hyperactivity disorder, intellectual disability (-) CVA, depression, schizophrenia, dementia Comment: Impulse control / verbal / vocal Autism Cardiovascular (+) exercise intolerance wheelchair <4 METs (-) hypertension, past MO, CAD, CABG/stent, arrhythmia, angina, CHF, valvular problems/murmurs, pacemaker/AICD, GELLER, PND, orthopnea Comment: Denies: CP, SOB, palpitations, dizziness, or syncope. GI/Hepatic/Renal (+) GERD well controlled (-) renal disease, liver disease, hiatal hernia, PUD, hepatitis, no cirrhosis, bowel prep, gallbladder disease, abdominal pain, nephrolithiasis Heme/Other (+) anemia (-) no DVT, bleeding disorder, anticoagulation therapy, sickle cell disease, HIV and no refusal of blood products Other ROS: Musculoskeletal Osteoporosis PAST SURGICAL HISTORY: Surgical History[3] SOCIAL HISTORY: Social History[4] PAIN ASSESSMENT: Severity: 0 Location: N/A LABORATORY DATA: 01/04/2025 REQUESTED UPDATED LABS Type & Screen (Last result in the past 30 days) No lab values to display. CBC 04/03/2024 CBC (last 3 years, up to 8 values) 12/25/2023 10:41 AM WBC 5.3 RBC 3.48 Hgb 10.8 Hct 33.5 MCV 96 RDW 16.1 Plt 425 BMP 04/03/2024 BMP (last 3 years, up to 8 values) 12/25/2023 10:41 AM Na 134 K 4.4 Cl 102 CO2 23 Gap 13 Glu 85 BUN 7 Cr 0.36 Ca 9.0 eGFR 133 PT/PTT/INR (last 3 years, up to 8 values) No lab values to display. Arterial Blood Gases None No result for BNP LFT's (last 3 years, up to 8 values) No lab values to display. Urinalysis No lab values to display. TESTS REVIEWED: CXRay: No Chest x-ray found EKG: Last ECG Date: 12/28/2023 Component Ref Range & Units 1 yr ago Ventricular rate BPM 75 Atrial Rate BPM 75 P-R Interval ms 130 QRS duration ms 86 Q-T interval ms 390 QTC CALCULATION(BEZET) ms 435 P axis degrees 23 R axis degrees 42 T axis degrees 16 Diagnosis Normal sinus rhythm Nonspecific T wave abnormality Abnormal ECG No previous ECGs available Confirmed by LORENZA PARKS ([id number]) on 12/28/2023 8:11:02 PM ECHO: Echocardiogram date: Not Found No results found for this basename: LVEF Stress test date: Last Cardiac Stress Test: Not Found CURRENT MEDICATION LIST: (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 Cariprazine HCl (Vraylar) 6 MG CAPS capsule guaifenesin-dextromethorphan (MUCINEX DM) 30-600 MG tablet Promethazine HCl (PHENERGAN INJ) Take by mouth. risperiDONE (RISPERDAL) 3 MG tablet D3-1000 25 MCG (1000 UT) CAPS capsule divalproex ER (DEPAKOTE ER) 250 MG ER tablet at bedtime. divalproex ER (DEPAKOTE ER) 500 MG ER tablet Linzess 290 MCG CAPS capsule Take 290 mcg by mouth daily. lurasidone (LATUDA) 80 MG tablet Take 1 Tablet by mouth. pantoprazole (PROTONIX) 40 MG tablet CARBAMAZEPINE ORAL Take by mouth. (Patient not taking: Reported on 10/12/2024) Calcium Carb-Cholecalciferol (Oyster Shell Calcium w/D) 500-5 MG-MCG TABS chlorhexidine (Peridex) 0.12 % oral solution Swish mouth with 15 mL by mouth 2 times daily. DO NOT SWALLOW 473 mL 3 medroxyPROGESTERone (Depo-Provera) 150 MG/ML injection Inject 150 mg into the muscle once. (Patient not taking: Reported on 10/12/2024) ondansetron (Zofran) 4 MG tablet Take 4 [...] by mouth daily. Take at 4 pm loratadine (CLARITIN) 10 MG tablet Take [...] No current facility-administered medications for this visit. CURRENT MEDICATIONS: Aspirin: No NSAIDS: No Other Antiplatelet Medication: No Anticoagulants: No Steroids: No SGLT-2/GLP-1: No PATIENT MEDICATION INSTRUCTIONS: On the morning of your surgery, please take only the following medications, with a small sip of water: lurasidone (LATUDA) 80 MG tablet pantoprazole (PROTONIX) 40 MG tablet montelukast (SINGULAIR) 10 MG tablet famotidine (PEPCID) 20 MG tablet levETIRAcetam (KEPPRA) 500 MG tablet levothyroxine (SYNTHROID) 75 MCG tablet divalproex (DEPAKOTE) 500 MG enteric coated tablet *Please hold Naltrexone 3 days prior to surgery *Last dose 01/14/2025 Please hold vitamin/mineral supplements, and non essential medications i.e. stool softeners, as well as any topical lotions/creams or patches the morning of your surgery/procedure. Do not take any Aspirin 7 days before the surgery. Do not take any Ibuprofen products/NSAIDs 3 days before surgery. May take over the counter Acetaminophen (Tylenol) as needed for pain. Do not take any herbal medications 7 days prior to surgery (Fish Oil, Ginseng, Ginko Biloba) DAY OF SURGERY NOTES: IN BOLD TEXT ? Expect a call from [facility] one business day prior to surgery for [...] s office as soon as possible. ? Eating and drinking before surgery: Adult Patients: No solid food or dairy products 8 hours prior to surgery check in time. Sips of plain water are allowed up to 2 hours prior to your procedure/surgery arrival time. A sip of water with approved morning medications is acceptable. Post-op Nausea and Vomiting: A risk of [...] any prolonged PONV and signs of dehydration. Patients whose assigned sex at was female, and are starting puberty or beyond, will be urine tested for per hospital policy. ON THE DAY OF SURGERY: ? DO bring your ID, insurance card, medication list, and a small amount of bai for filling prescriptions and any medical co-pays. ? Do NOT wear any jewelry, (including rings, earrings, or mouth, tongue, or body piercing's). Metal jewelry could cause constriction, amputation, or [...] a car, cab, shared ride service, or [facility]. You will not be allowed to drive yourself home or travel home alone. Your surgery may be cancelled if you do not have a ride. A responsible adult must stay with you after surgery. ? PLEASE BE ON TIME. A late arrival may result in the cancellation/ delay of your surgery. Thank you for choosing [facility]; it is our pleasure to care for you Radha Evans, RN, RN Time Spent Performing this Telephone History: 30 min [1] Past Medical History: Diagnosis Date ADHD (attention deficit hyperactivity disorder) OSH H+P 01/25/19 Anemia OSH H+P 01/25/19 Autism (HCC) OSH H+P 01/25/19 Autism spectrum disorder (HCC) 07/13/2024 Cerebral palsy ([facility]) Mild, OSH H+P 01/25/19 Cholelithiasis OSH H+P 01/25/19 Chronic constipation OSH H+P 01/25/19 Disruptive behavior disorder OSH H+P 01/25/19 Dyspepsia OSH H+P 01/25/19 Hypothyroid OSH H+P 01/25/19 Hypothyroidism, unspecified 09/22/2022 Impulse control disorder OSH H+P 01/25/19 Intermittent explosive disorder OSH H+P 01/25/19 Myopia OSH H+P 01/25/19 Osteopenia OSH H+P 01/25/19 Other bipolar disorder ([facility]) 10/08/2007 Pervasive developmental disorder (HCC) OSH H+P 01/25/19 Seasonal allergies OSH H+P 01/25/19 Seizure disorder ([facility]) OSH H+P 01/25/19 Severe intellectual disability OSH H+P 01/25/19 [2] Patient Active Problem List Diagnosis Code Cerebral palsy ([facility]) G80.9 Dental caries K02.9 Dental decay K02.9 Hamstring tightness M62.89 Examination following surgery Z09 Crouched gait R26.89 Caries K02.9 Anorexia R63.0 Disruptive behavior disorder F91.9 Impulse control disorder F63.9 Osteoporosis M81.0 Other bipolar disorder ([facility]) F31.89 Autism spectrum disorder ([facility]) F84.0 Severe intellectual disability with intelligence quotient 20 to 34 F72 Seizure disorder ([facility]) G40.909 Hypothyroidism, unspecified E03.9 Epilepsy, unspecified, not intractable, without status epilepticus ([facility]) G40.909 Bipolar 1 disorder ([facility]) F31.9 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 K02.9 [3] Past Surgical History: Procedure Laterality Date CHOLECYSTECTOMY 2008 OSH H+P 01/25/19 DENTAL RESTORATIONS N/A 02/11/2019 Procedure: DENTAL RESTORATIONS; Surgeon: Fernando Kurtz DDS; Location: [facility] Surgery [place]; Service: Dental DENTAL RESTORATIONS N/A 11/05/2020 Procedure: DENTAL RESTORATIONS; Surgeon: Dru Friedman DDS; Location: [facility] Surgery [place]; Service: Dental DENTAL RESTORATIONS N/A 01/08/2024 Procedure: DENTAL RESTORATIONS; Surgeon: Stacie Torres DMD; Location: [facility]; Service: Dental [4] Social History Socioeconomic History Marital status: Single Tobacco Use Smoking status: Never Smokeless tobacco: Never Substance and Sexual Activity Alcohol use: Not Currently Drug use: Not Currently [facility] 01-04-2025 Miscellaneous Notes Images from the original note were not included. Telephone History Vee Sarabia, [id number] 01/04/2025 39 year old 146 lbs 4' 10 Patient was identified by name and date of . [facility] [place] [phone] fax [phone] Legal guardian Leobardo Calloway [phone] *Not sure that patient will be able to provide urine sample the day of procedure intermittently continent, [facility] turn around on Labs 72 hours Needs: Physical, Neck Circumference, and BHCG on DOS. Wheel chair Able to ambulate with asst short distances, CP, Sz hx, Intellectual disability If the patient becomes ill prior to procedure or surgery, they are to call their provider or surgeon's office directly. Date of Surgery: 01/18/2025 Surgeon: Pretty Type of Surgery: LEFT EXTRACTION, TEETH: #12,#13,#14 HISTORY OF PRESENT ILLNESS: Telephone history prior to surgery or procedure with anesthesia scheduled at [facility] Partial note 07/13/2024 Oral surgery Clemow 39yoF, PMH remarkable for ADHD, Autism, Cerebral palsy, Impulse control disorder, seizure disorder, osteoporosis (pt has hx of alendronate 5+yrs stopped in 12/2023) , bipolar disorder, referred to [facility] for extraction of teeth #12,13,14. PLAN: Our plan is to extract the teeth under GA @ [facility] due to pt medical history and lack of cooperation. Partial note Neurology 09/29/2024 [place] 39-year-old female with MRDD and cerebral palsy and symptomatic seizure disorder, behavioral and conduct issues. She can have nystagmas and crossing of her right eye and bilateral. This is evaluated every shift. This is noticed more when she is having behaviors . She was no longer on the lamictal. Latuda was started at this same time. She does continue on the depakote and keppra. I do suspect the lamictal may have given her some seizure coverage and perhaps this discontinuation is the reason along with the affect of latuda can decrease seizure threshold and at prior visit she had some recorded seizure like activity. We did order an amb EEG to [...] added 02/19/[address] Terry Price. This was at a seizure prevention dosing. Then, her visit was moved up as the tegretol was stopped and lithium orderd. She was off the tegretol for 4 days and had a grand mal seizure reported from staff and another event they believe to be seizure. She then had the tegretol restarted and lithium stopped. There was then a phone call December 15, 2023 as she was having increased behaviors to the point that she was pulling out her own hair so therefore they had to practically shave her head. She has always had issues with biting and that was increasing as well. She was spitting and biting her clothes off of herself. Psychiatry had been changing some of her medications around as noted above. They questioned if the Lyrica could be causing the increase in her behaviors. We do not prescribe Lyrica but she had been on it for some time without any dose changes. I do not believe that the Lyrica was the cause. These behaviors continued and Psychiatry has now gotten her off of her Latuda and her Tegretol. Unfortunately she has had a grand mal seizure noted by the home several visits ago. And the night prior to that she was home with her father and he stated she had 1 as well. We did increase her nighttime Depakote and he behaviors have gotten better and one possible seizure noted shortly after increase, none in the last 6 months. She is very pleasant today. Behaviors seem to continue to be doing well. She is now on Risperdal. She is excited today as she is going home for the weekend. Her parents continue to take her home every other weekend. Plan home paperwork reviewed continue with keppra 500 mg po BID Continue depakote ER for seizure prevention 500 mg in am 750 mg at bedtime Continue with Psychiatry monitor for worsening continue exercises call in for any events This was discussed with the patient, all questions were answered and they agreed with the treatment plan. The patient is to call with any worsening of the condition or new symptoms. STOP-BANG Row Name 01/04/25 0947 History of sleep apnea? No Snoring No Tired/Fatigued No Observed Apnea No Pressure: Hypertension No BMI greater than 35 0 Age greater than 50 0 Gender male? 0 Score 0 EXERCISE CAPACITY: <4 mets WC ALLERGIES: Benadryl [diphenhydramine], Chloral hydrate, Octacosanol, and Valium [diazepam] PREVIOUS ANESTHETIC EXPERIENCES AND INTUBATION HISTORY: No previous anesthetic complication FAMILY HISTORY OF ANESTHETIC COMPLICATIONS: No PAST MEDICAL HISTORY: Medical History[1] PROBLEM LIST: Problem List[2] Past Medical History and Review of Systems Pulmonary - negative ROS Comment: Denies SOB, wheezes, fever, chills, increased sputum, or general malaise. Patient denies any current/recent illnesses. Dental ROS (+) teeth problems (caries) Comment: Scheduled LEFT EXTRACTION, TEETH: #12,#13,#14 Endo (+) hypothyroidism, obesity (-) diabetes mellitus, hyperthyroidism perianesthesia nurse Comment: Regular menses LMP 12/14/2024 - patient may be able to provide urine sample Neuro/Psych (+) bipolar disorder, anxiety/panic attacks, seizures (Last 2023), cerebral palsy, attention deficit hyperactivity disorder, intellectual disability (-) CVA, depression, schizophrenia, dementia Comment: Impulse control / verbal / vocal Autism Cardiovascular (+) exercise intolerance wheelchair <4 METs (-) hypertension, past MO, CAD, CABG/stent, arrhythmia, angina, CHF, valvular problems/murmurs, pacemaker/AICD, GELLER, PND, orthopnea Comment: Denies: CP, SOB, palpitations, dizziness, or syncope. GI/Hepatic/Renal (+) GERD well controlled (-) renal disease, liver disease, hiatal hernia, PUD, hepatitis, no cirrhosis, bowel prep, gallbladder disease, abdominal pain, nephrolithiasis Heme/Other (+) anemia (-) no DVT, bleeding disorder, anticoagulation therapy, sickle cell disease, HIV and no refusal of blood products Other ROS: Musculoskeletal Osteoporosis PAST SURGICAL HISTORY: Surgical History[3] SOCIAL HISTORY: Social History[4] PAIN ASSESSMENT: Severity: 0 Location: N/A LABORATORY DATA: 01/04/2025 REQUESTED UPDATED LABS Type & Screen (Last result in the past 30 days) No lab values to display. CBC 04/03/2024 CBC (last 3 years, up to 8 values) 12/25/2023 10:41 AM WBC 5.3 RBC 3.48 Hgb 10.8 Hct 33.5 MCV 96 RDW 16.1 Plt 425 BMP 04/03/2024 BMP (last 3 years, up to 8 values) 12/25/2023 10:41 AM Na 134 K 4.4 Cl 102 CO2 23 Gap 13 Glu 85 BUN 7 Cr 0.36 Ca 9.0 eGFR 133 PT/PTT/INR (last 3 years, up to 8 values) No lab values to display. Arterial Blood Gases None No result for BNP LFT's (last 3 years, up to 8 values) No lab values to display. Urinalysis No lab values to display. TESTS REVIEWED: CXRay: No Chest x-ray found EKG: Last ECG Date: 12/28/2023 Component Ref Range & Units 1 yr ago Ventricular rate BPM 75 Atrial Rate BPM 75 P-R Interval ms 130 QRS duration ms 86 Q-T interval ms 390 QTC CALCULATION(BEZET) ms 435 P axis degrees 23 R axis degrees 42 T axis degrees 16 Diagnosis Normal sinus rhythm Nonspecific T wave abnormality Abnormal ECG No previous ECGs available Confirmed by LORENZA PARKS ([id number]) on 12/28/2023 8:11:02 PM ECHO: Echocardiogram date: Not Found No results found for this basename: LVEF Stress test date: Last Cardiac Stress Test: Not Found CURRENT MEDICATION LIST: (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 Cariprazine HCl (Vraylar) 6 MG CAPS capsule guaifenesin-dextromethorphan (MUCINEX DM) 30-600 MG tablet Promethazine HCl (PHENERGAN INJ) Take by mouth. risperiDONE (RISPERDAL) 3 MG tablet D3-1000 25 MCG (1000 UT) CAPS capsule divalproex ER (DEPAKOTE ER) 250 MG ER tablet at bedtime. divalproex ER (DEPAKOTE ER) 500 MG ER tablet Linzess 290 MCG CAPS capsule Take 290 mcg by mouth daily. lurasidone (LATUDA) 80 MG tablet Take 1 Tablet by mouth. pantoprazole (PROTONIX) 40 MG tablet CARBAMAZEPINE ORAL Take by mouth. (Patient not taking: Reported on 10/12/2024) Calcium Carb-Cholecalciferol (Oyster Shell Calcium w/D) 500-5 MG-MCG TABS chlorhexidine (Peridex) 0.12 % oral solution Swish mouth with 15 mL by mouth 2 times daily. DO NOT SWALLOW 473 mL 3 medroxyPROGESTERone (Depo-Provera) 150 MG/ML injection Inject 150 mg into the muscle once. (Patient not taking: Reported on 10/12/2024) ondansetron (Zofran) 4 MG tablet Take 4 [...] by mouth daily. Take at 4 pm loratadine (CLARITIN) 10 MG tablet Take [...] No current facility-administered medications for this visit. CURRENT MEDICATIONS: Aspirin: No NSAIDS: No Other Antiplatelet Medication: No Anticoagulants: No Steroids: No SGLT-2/GLP-1: No PATIENT MEDICATION INSTRUCTIONS: On the morning of your surgery, please take only the following medications, with a small sip of water: lurasidone (LATUDA) 80 MG tablet pantoprazole (PROTONIX) 40 MG tablet montelukast (SINGULAIR) 10 MG tablet famotidine (PEPCID) 20 MG tablet levETIRAcetam (KEPPRA) 500 MG tablet levothyroxine (SYNTHROID) 75 MCG tablet divalproex (DEPAKOTE) 500 MG enteric coated tablet *Please hold Naltrexone 3 days prior to surgery *Last dose 01/14/2025 Please hold vitamin/mineral supplements, and non essential medications i.e. stool softeners, as well as any topical lotions/creams or patches the morning of your surgery/procedure. Do not take any Aspirin 7 days before the surgery. Do not take any Ibuprofen products/NSAIDs 3 days before surgery. May take over the counter Acetaminophen (Tylenol) as needed for pain. Do not take any herbal medications 7 days prior to surgery (Fish Oil, Ginseng, Ginko Biloba) DAY OF SURGERY NOTES: IN BOLD TEXT ? Expect a call from [facility] one business day prior to surgery for [...] s office as soon as possible. ? Eating and drinking before surgery: Adult Patients: No solid food or dairy products 8 hours prior to surgery check in time. Sips of plain water are allowed up to 2 hours prior to your procedure/surgery arrival time. A sip of water with approved morning medications is acceptable. Post-op Nausea and Vomiting: A risk of [...] any prolonged PONV and signs of dehydration. Patients whose assigned sex at was female, and are starting puberty or beyond, will be urine tested for per hospital policy. ON THE DAY OF SURGERY: ? DO bring your ID, insurance card, medication list, and a small amount of bai for filling prescriptions and any medical co-pays. ? Do NOT wear any jewelry, (including rings, earrings, or mouth, tongue, or body piercing's). Metal jewelry could cause constriction, amputation, or [...] a car, cab, shared ride service, or [employer]. You will not be allowed to drive yourself home or travel home alone. Your surgery may be cancelled if you do not have a ride. A responsible adult must stay with you after surgery. ? PLEASE BE ON TIME. A late arrival may result in the cancellation/ delay of your surgery. Thank you for choosing [facility]; it is our pleasure to care for you Radha Evans, RN, RN Time Spent Performing this Telephone History: 30 min [1] Past Medical History: Diagnosis Date ADHD (attention deficit hyperactivity disorder) OS H+P 01/25/19 Anemia OSH H+P 01/25/19 Autism (HCC) OSH H+P 01/25/19 Autism spectrum disorder (HCC) 07/13/2024 Cerebral palsy (HCC) Mild, OSH H+P 01/25/19 Cholelithiasis OSH H+P 01/25/19 Chronic constipation OSH H+P 01/25/19 Disruptive behavior disorder OSH H+P 01/25/19 Dyspepsia OSH H+P 01/25/19 Hypothyroid OSH H+P 01/25/19 Hypothyroidism, unspecified 09/22/2022 Impulse control disorder OSH H+P 01/25/19 Intermittent explosive disorder OSH H+P 01/25/19 Myopia OSH H+P 01/25/19 Osteopenia OSH H+P 01/25/19 Other bipolar disorder ([facility]) 10/08/2007 Pervasive developmental disorder (HCC) OSH H+P 01/25/19 Seasonal allergies OSH H+P 01/25/19 Seizure disorder ([facility]) OSH H+P 01/25/19 Severe intellectual disability OSH H+P 01/25/19 [2] Patient Active Problem List Diagnosis Code Cerebral palsy ([facility]) G80.9 Dental caries K02.9 Dental decay K02.9 Hamstring tightness M62.89 Examination following surgery Z09 Crouched gait R26.89 Caries K02.9 Anorexia R63.0 Disruptive behavior disorder F91.9 Impulse control disorder F63.9 Osteoporosis M81.0 Other bipolar disorder ([facility]) F31.89 Autism spectrum disorder (HCC) F84.0 Severe intellectual disability with intelligence quotient 20 to 34 F72 Seizure disorder ([facility]) G40.909 Hypothyroidism, unspecified E03.9 Epilepsy, unspecified, not intractable, without status epilepticus ([facility]) G40.909 Bipolar 1 disorder ([facility]) F31.9 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 K02.9 [3] Past Surgical History: Procedure Laterality Date CHOLECYSTECTOMY 2008 OSH H+P 01/25/19 DENTAL RESTORATIONS N/A 02/11/2019 Procedure: DENTAL RESTORATIONS; Surgeon: Fernando Kurtz DDS; Location: [facility]; Service: Dental DENTAL RESTORATIONS N/A 11/05/2020 Procedure: DENTAL RESTORATIONS; Surgeon: Dru Friedman DDS; Location: [facility] [place]; Service: Dental DENTAL RESTORATIONS N/A 01/08/2024 Procedure: DENTAL RESTORATIONS; Surgeon: Stacie Torres DMD; Location: [facility]; Service: Dental [4] Social History Socioeconomic History Marital status: Single Tobacco Use Smoking status: Never Smokeless tobacco: Never Substance and Sexual Activity Alcohol use: Not Currently Drug use: Not Currently documented in this encounter [facility] 11-02-2024 Telephone encounter Note Situation: Sparkle is calling from [facility] to see if appointment for today needs to be cancelled/ rescheduled Background: Pt is scheduled for surgery today to have teeth extraction at [address] She was supposed to be NPO for this procedure but accidentally got a breakfast tray and ate the whole thing. She had eggs, toast and applesauce. Assessment: N/A Recommendation: Encounter routed to clinical dwarf for recommendation. Please call [facility] at [phone] to advise if surgery will need rescheduled. [facility] Work Phone: 11-02-2024 Miscellaneous Notes Situation: [facility] is calling from [facility] to see if appointment for today needs to be cancelled/ rescheduled Background: Pt is scheduled for surgery today to have teeth extraction at [address] She was supposed to be NPO for this procedure but accidentally got a breakfast tray and ate the whole thing. She had eggs, toast and applesauce. Assessment: N/A Recommendation: Encounter routed to clinical dwarf for recommendation. Please call [facility] at [phone] to advise if surgery will need rescheduled. documented in this encounter [facility] 10-28-2024 Telephone encounter Note Patient's arrival time for 11/02/2024 is 0645, moved earlier per [facility] request. [facility] confirmed 0645 arrival, NPO and med instructions reviewed. [facility] 10-28-2024 Miscellaneous Notes Patient's arrival time for 11/02/2024 is 0645, moved earlier per [facility] request. [facility] confirmed 0645 arrival, NPO and med instructions reviewed. documented in this encounter [facility] 10-27-2024 Telephone encounter Note Christy from [facility] made aware of 0915 surgery arrival time on 11/[email or web address] [facility] 10-27-2024 Miscellaneous Notes Christy from [facility] made aware of 0915 surgery arrival time on 11/[address]. documented in this encounter [facility] 10-26-2024 Note Anesthesia consent o btained by Dr. Jacobs for 11/02 procedure and scanned into [employer]. [facility] 10-26-2024 Telephone encounter Note Anesthesia consent obtained by Dr. Jacobs for 11/02 procedure and scanned into [employer]. [facility] 10-26-2024 Miscellaneous Notes Anesthesia consent obtained by Dr. Jacobs for 11/02 procedure and scanned into [employer]. documented in this encounter [facility] 10-15-2024 Telephone encounter Note Situation: Gabriela Booth calling in on behalf of pt Background: Leobardo states had gotten a call from staff requesting consent for an upcoming procedure Assessment: n/a Recommendation: fauzia Amado Rn will route message [place] [facility] [place] and staff to call back at [phone] to obtain consent . [facility] 10-15-2024 Miscellaneous Notes Situation: Gabriela Booth calling in on behalf of pt Background: Mom states had gotten a call from staff requesting consent for an upcoming procedure Assessment: n/a Recommendation: fauzia Amado Rn will route message to [facility] [place] and staff to call back at [phone] to obtain consent . documented in this encounter [facility] 10-12-2024 Instructions Dacia Martins RN - 10/12/2024 11:05 AM EDT You are to have Surgery with Dr. Schilling on 11/02/[address] [facility] [place]. It is located at [address] [place] [address]. PATIENT MEDICATION INSTRUCTIONS: On the morning of your surgery, please take only the following medications, with a small sip of water: famotidine (PEPCID) 20 MG tablet levETIRAcetam (KEPPRA) 500 MG tablet pregabalin (LYRICA) 75 MG capsule divalproex (DEPAKOTE) 500 MG enteric coated tablet DO NOT TAKE Naltrexone within 3 days of the procedure - LAST DOSE 10/29/2024 Do not take any Aspirin 7 days before the surgery. Do not take any Ibuprofen products/NSAIDs 3 days before surgery. May take over the counter Acetaminophen (Tylenol) as needed for pain. Do not take any herbal medications 7 days prior to surgery (Fish Oil, Ginseng, Ginko Biloba) DAY OF SURGERY NOTES: Surgery Information Booklet Please use this CHECKLIST to prepare for your surgery/procedure: Assume that any lab or testing done during your Pre-admission testing appointment is within normal limits unless otherwise contacted. Expect a call from [facility] one business day prior to surgery for surgery arrival time and location. Please plan to restart your medications the day after surgery unless otherwise explicitly instructed. Please contact your surgeon s/proceduralist s office for any surgical or recovery types of questions. CANCELLING YOUR SURGERY/PROCEDURE: If you get a cold, are not feeling well, or become , please call your surgeon s office as soon as possible. Refer to your Preparing for Your Surgery/Procedure booklet or [email or web address] if you have questions. Contact the Pre-Admission Testing department at [phone] or your surgeon's office with any questions that are not answered. Eating and drinking before surgery: Adult Patients: Plain water withOUT additives is acceptable up to 2 hours prior to surgery arrival time. No food or any other type of liquids for at least 8 hours prior to surgery arrival time. A sip of water with morning medications is acceptable. Enhanced Recovery After Surgery (ERAS), bariatric, and endoscopy/colonoscopy patients should follow their surgeon s/proceduralist s instructions for clear fluids prior to surgery. Patients whose assigned sex at was female, and are starting puberty or beyond, will be urine tested for per hospital policy. Pediatric Patients (under the age of 1212 [...] for surgery. ON THE DAY OF SURGERY: DO bring your ID, insurance card, medication list, and a small amount of bai for filling prescriptions and any medical co-pays. Do NOT wear any jewelry including rings, earrings, or mouth, tongue, or body piercings. Metal jewelry could cause constriction, amputation, or stafford. Loose or bulky things in your mouth can be unsafe and result in breathing problems. DO bring glasses if you wear contacts and other assistance items such as oxygen, inhaler, cane, walker, etc. Do NOT bring valuables, credit cards, or large amounts of bai. Do NOT wear lotion or strong-smelling fragrance (perfume, cologne, cream or lotion). ARRANGE FOR A RIDE: If you are [...] stay with you after surgery. Please call [employer] if you need transportation assistance or have concerns about going home [phone]. PEDIATRIC or ADOLESCENTS: Parents or a legal guardian must remain at the hospital during surgery. You will need to make childcare arrangements for your other small children to remain at home or bring an adult with you who can supervise them in the waiting area while you are with your child. Please bring legal guardianship papers with you if applicable. Patients whose assigned sex at was female, and are starting puberty or beyond, will be urine tested for per hospital policy. SLEEP APNEA PATIENTS: Bring your sleep apnea machine and mask. PLEASE BE ON TIME. A late arrival may result in the cancellation/ delay of your surgery. A risk of anesthesia is nausea and/or [...] of dehydration. Thank you for choosing [facility]; it is our pleasure to care for you. documented in this encounter [facility] 10-12-2024 Evaluation note Images from the original note were not included. Telephone History Vee Crenshawhoney, [id number] 10/12/2024 Patient was identified by name and date of with Nurse Cassidy at [facility]. Needs: Physical, Neck Circumference, BHCG and Seizure Precautions on DOS. If the patient becomes ill prior to procedure or surgery, they are to call their provider or surgeon's office directly. Will need LG consent 10/12/2024- Faxed Prep info to [facility] : 39 year old 146.6 lbs 4' 10 Date of Surgery: 11/02 Surgeon: Pretty Type of Surgery: EXTRACTION, TEETH: #12,#13,#14 HISTORY OF PRESENT ILLNESS: Telephone history prior to the surgery at [facility], [address] [place] [address], enter through the main entrance, check-in at the operating room desk, 1st floor. STOP-BANG Row Name 10/12/24 0911 History of sleep apnea? No Snoring No Tired/Fatigued No Observed Apnea No Pressure: Hypertension No BMI greater than 35 0 Age greater than 50 0 Neck circ greater than 40cm (15.75 ) Unable to Assess Gender male? 0 Score 0 EXERCISE CAPACITY: <4 mets and Uses a wheel chair ALLERGIES: Benadryl [diphenhydramine], Chloral hydrate, Octacosanol, and Valium [diazepam] PREVIOUS ANESTHETIC EXPERIENCES AND INTUBATION HISTORY: No previous anesthetic complication FAMILY HISTORY OF ANESTHETIC COMPLICATIONS: No PAST MEDICAL HISTORY: Medical History[1] PROBLEM LIST: Problem List[2] Past Medical History and Review of Systems Pulmonary - negative ROS Comment: Denies SOB, wheezes, fever, chills, increased sputum, or general malaise. 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 GI/Hepatic/Renal - negative ROS Heme/Other (+) anemia PAST SURGICAL HISTORY: Surgical History[3] SOCIAL HISTORY: Social History[4] PAIN ASSESSMENT: Severity: 0 Location: N/A LABORATORY DATA: Type & Screen (Last result in the past 30 days) No lab values to display. CBC (last 3 years, up to 8 [...] Metabolic Panel No lab values to display. PT/PTT/INR (last 3 years, up to 8 values) No lab values to display. Arterial Blood Gases None No result for BNP LFT's (last 3 years, up to 8 values) No lab values to display. Urinalysis No lab values to display. TESTS REVIEWED: CXRay: No Chest x-ray found EKG: Last ECG Date: 12/28/2023 - HR 75 Normal sinus rhythm Nonspecific T wave abnormality Abnormal ECG No previous ECGs available Confirmed by LORENZA PARKS ([id number]) on 12/28/2023 8:11:02 PM ECHO: Echocardiogram date: Not Found No results found for this basename: LVEF Stress test date: Last StressTest: none found going back to 09/08/2005 CURRENT MEDICATION LIST: Current Outpatient Medications Medication Sig Dispense Refill cyproheptadine (PERIACTIN) 4 MG tablet Take 4 mg by mouth at bedtime. Cariprazine HCl (Vraylar) 6 MG CAPS capsule guaifenesin-dextromethorphan (MUCINEX DM) 30-600 MG tablet Promethazine HCl (PHENERGAN INJ) Take by mouth. risperiDONE (RISPERDAL) 3 MG tablet D3-1000 25 MCG (1000 UT) CAPS capsule divalproex ER (DEPAKOTE ER) 250 MG ER tablet at bedtime. divalproex ER (DEPAKOTE ER) 500 MG ER tablet Linzess 290 MCG CAPS capsule Take 290 mcg by mouth daily. lurasidone (LATUDA) 80 MG tablet Take 1 Tablet by mouth. pantoprazole (PROTONIX) 40 MG tablet CARBAMAZEPINE ORAL Take by mouth. (Patient not taking: Reported on 10/12/2024) Calcium Carb-Cholecalciferol (Oyster Shell Calcium w/D) 500-5 MG-MCG TABS chlorhexidine (Peridex) 0.12 % oral solution Swish mouth with 15 mL by mouth 2 times daily. DO NOT SWALLOW 473 mL 3 medroxyPROGESTERone (Depo-Provera) 150 MG/ML injection Inject 150 mg into the muscle once. (Patient not taking: Reported on 10/12/2024) ondansetron (Zofran) 4 MG tablet Take 4 [...] by mouth daily. Take at 4 pm loratadine (CLARITIN) 10 MG tablet Take [...] No current facility-administered medications for this visit. CURRENT MEDICATIONS: Aspirin: No NSAIDS: No Other Antiplatelet Medication: No Anticoagulants: No Steroids: No SGLT-2/GLP-1: No PATIENT MEDICATION INSTRUCTIONS: On the morning of your surgery, please take only the following medications, with a small sip of water: famotidine (PEPCID) 20 MG tablet levETIRAcetam (KEPPRA) 500 MG tablet pregabalin (LYRICA) 75 MG capsule divalproex (DEPAKOTE) 500 MG enteric coated tablet DO NOT TAKE Naltrexone within 3 days of the procedure - LAST DOSE 10/29/2024 Do not take any Aspirin 7 days before the surgery. Do not take any Ibuprofen products/NSAIDs 3 days before surgery. May take over the counter Acetaminophen (Tylenol) as needed for pain. Do not take any herbal medications 7 days prior to surgery (Fish Oil, Ginseng, Ginko Biloba) DAY OF SURGERY NOTES: Surgery Information Booklet Please use this CHECKLIST to prepare for your surgery/procedure: Assume that any lab or testing done during your Pre-admission testing appointment is within normal limits unless otherwise contacted. Expect a call from [facility] one business day prior to surgery for surgery arrival time and location. Please plan to restart your medications the day after surgery unless otherwise explicitly instructed. Please contact your surgeon s/proceduralist s office for any surgical or recovery types of questions. CANCELLING YOUR SURGERY/PROCEDURE: If you get a cold, are not feeling well, or become , please call your surgeon s office as soon as possible. Refer to your Preparing for Your Surgery/Procedure booklet or [email or web address] if you have questions. Contact the Pre-Admission Testing department at [phone] or your surgeon's office with any questions that are not answered. Eating and drinking before surgery: Adult Patients: Plain water withOUT additives is acceptable up to 2 hours prior to surgery arrival time. No food or any other type of liquids for at least 8 hours prior to surgery arrival time. A sip of water with morning medications is acceptable. Enhanced Recovery After Surgery (ERAS), bariatric, and endoscopy/colonoscopy patients should follow their surgeon s/proceduralist s instructions for clear fluids prior to surgery. Patients whose assigned sex at was female, and are starting puberty or beyond, will be urine tested for per hospital policy. Pediatric Patients (under the age of 1212 [...] for surgery. ON THE DAY OF SURGERY: DO bring your ID, insurance card, medication list, and a small amount of bai for filling prescriptions and any medical co-pays. Do NOT wear any jewelry including rings, earrings, or mouth, tongue, or body piercings. Metal jewelry could cause constriction, amputation, or stafford. Loose or bulky things in your mouth can be unsafe and result in breathing problems. DO bring glasses if you wear contacts and other assistance items such as oxygen, inhaler, cane, walker, etc. Do NOT bring valuables, credit cards, or large amounts of bai. Do NOT wear lotion or strong-smelling fragrance (perfume, cologne, cream or lotion). ARRANGE FOR A RIDE: If you are [...] stay with you after surgery. Please call [employer] if you need transportation assistance or have concerns about going home [phone]. PEDIATRIC or ADOLESCENTS: Parents or a legal guardian must remain at the hospital during surgery. You will need to make childcare arrangements for your other small children to remain at home or bring an adult with you who can supervise them in the waiting area while you are with your child. Please bring legal guardianship papers with you if applicable. Patients whose assigned sex at was female, and are starting puberty or beyond, will be urine tested for per hospital policy. SLEEP APNEA PATIENTS: Bring your sleep apnea machine and mask. PLEASE BE ON TIME. A late arrival may result in the cancellation/ delay of your surgery. A risk of anesthesia is nausea and/or [...] signs of dehydration. Thank you for choosing [facility]; it is our pleasure to care for you. Dacia Martins RN Time Spent Performing this Telephone History: 35 [1] Past Medical History: Diagnosis Date ADHD (attention [...] 01/25/19 Severe intellectual disability OSH H+P 01/25/19 [2] Patient Active Problem List Diagnosis Code Cerebral palsy ([facility]) G80.9 Dental caries K02.9 Dental decay K02.9 Hamstring tightness M62.89 Examination following surgery Z09 Crouched gait R26.89 Caries K02.9 Anorexia R63.0 Disruptive behavior disorder F91.9 Impulse control disorder F63.9 Osteoporosis M81.0 Other bipolar disorder ([facility]) F31.89 Autism spectrum disorder ([facility]) F84.0 Severe intellectual disability with intelligence quotient 20 to 34 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 Seizure disorder ([facility]) G40.909 Hypothyroidism, unspecified E03.9 Epilepsy, unspecified, not intractable, without status epilepticus ([facility]) G40.909 Bipolar 1 disorder ([facility]) F31.9 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 K02.9 [3] Past Surgical History: Procedure Laterality Date CHOLECYSTECTOMY 2008 OSH H+P 01/25/19 DENTAL RESTORATIONS N/A 02/11/2019 Procedure: DENTAL RESTORATIONS; Surgeon: Fernando Kurtz DDS; Location: [facility] [place]; Service: Dental DENTAL RESTORATIONS N/A 11/05/2020 Procedure: DENTAL RESTORATIONS; Surgeon: Dru Friedman DDS; Location: [facility]; Service: Dental DENTAL RESTORATIONS N/A 01/08/2024 Procedure: DENTAL RESTORATIONS; Surgeon: Stacie Torres DMD; Location: [facility]; Service: Dental [4] Social History Socioeconomic History Marital status: Single Tobacco Use Smoking status: Never Smokeless tobacco: Never Substance and Sexual Activity Alcohol use: Not Currently Drug use: Not Currently T [facility] 10-12-2024 Miscellaneous Notes Images from the original note were not included. Telephone History Vee Crenshawhoney, [id number] 10/12/2024 Patient was identified by name and date of with Nurse Benjamin at [facility]. Needs: Physical, Neck Circumference, BHCG and Seizure Precautions on DOS. If the patient becomes ill prior to procedure or surgery, they are to call their provider or surgeon's office directly. Will need LG consent 10/12/2024- Faxed Prep info to [facility] : 39 year old 146.6 lbs 4' 10 Date of Surgery: 11/02 Surgeon: Pretty Type of Surgery: EXTRACTION, TEETH: #12,#13,#14 HISTORY OF PRESENT ILLNESS: Telephone history prior to the surgery at [facility], [facility]. [address] [place] [address], enter through the main entrance, check-in at the operating room desk, 1st floor. STOP-BANG Row Name 10/12/24 0911 History of sleep apnea? No Snoring No Tired/Fatigued No Observed Apnea No Pressure: Hypertension No BMI greater than 35 0 Age greater than 50 0 Neck circ greater than 40cm (15.75 ) Unable to Assess Gender male? 0 Score 0 EXERCISE CAPACITY: <4 mets and Uses a wheel chair ALLERGIES: Benadryl [diphenhydramine], Chloral hydrate, Octacosanol, and Valium [diazepam] PREVIOUS ANESTHETIC EXPERIENCES AND INTUBATION HISTORY: No previous anesthetic complication FAMILY HISTORY OF ANESTHETIC COMPLICATIONS: No PAST MEDICAL HISTORY: Medical History[1] PROBLEM LIST: Problem List[2] Past Medical History and Review of Systems Pulmonary - negative ROS Comment: Denies SOB, wheezes, fever, chills, increased sputum, or general malaise. 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 GI/Hepatic/Renal - negative ROS Heme/Other (+) anemia PAST SURGICAL HISTORY: Surgical History[3] SOCIAL HISTORY: Social History[4] PAIN ASSESSMENT: Severity: 0 Location: N/A LABORATORY DATA: Type & Screen (Last result in the past 30 days) No lab values to display. CBC (last 3 years, up to 8 [...] Metabolic Panel No lab values to display. PT/PTT/INR (last 3 years, up to 8 values) No lab values to display. Arterial Blood Gases None No result for BNP LFT's (last 3 years, up to 8 values) No lab values to display. Urinalysis No lab values to display. TESTS REVIEWED: CXRay: No Chest x-ray found EKG: Last ECG Date: 12/28/2023 - HR 75 Normal sinus rhythm Nonspecific T wave abnormality Abnormal ECG No previous ECGs available Confirmed by LORENZA PARKS ([id number]) on 12/28/2023 8:11:02 PM ECHO: Echocardiogram date: Not Found No results found for this basename: LVEF Stress test date: Last StressTest: none found going back to 09/08/2005 CURRENT MEDICATION LIST: Current Outpatient Medications Medication Sig Dispense Refill cyproheptadine (PERIACTIN) 4 MG tablet Take 4 mg by mouth at bedtime. Cariprazine HCl (Vraylar) 6 MG CAPS capsule guaifenesin-dextromethorphan (MUCINEX DM) 30-600 MG tablet Promethazine HCl (PHENERGAN INJ) Take by mouth. risperiDONE (RISPERDAL) 3 MG tablet D3-1000 25 MCG (1000 UT) CAPS capsule divalproex ER (DEPAKOTE ER) 250 MG ER tablet at bedtime. divalproex ER (DEPAKOTE ER) 500 MG ER tablet Linzess 290 MCG CAPS capsule Take 290 mcg by mouth daily. lurasidone (LATUDA) 80 MG tablet Take 1 Tablet by mouth. pantoprazole (PROTONIX) 40 MG tablet CARBAMAZEPINE ORAL Take by mouth. (Patient not taking: Reported on 10/12/2024) Calcium Carb-Cholecalciferol (Oyster Shell Calcium w/D) 500-5 MG-MCG TABS chlorhexidine (Peridex) 0.12 % oral solution Swish mouth with 15 mL by mouth 2 times daily. DO NOT SWALLOW 473 mL 3 medroxyPROGESTERone (Depo-Provera) 150 MG/ML injection Inject 150 mg into the muscle once. (Patient not taking: Reported on 10/12/2024) ondansetron (Zofran) 4 MG tablet Take 4 [...] by mouth daily. Take at 4 pm loratadine (CLARITIN) 10 MG tablet Take [...] No current facility-administered medications for this visit. CURRENT MEDICATIONS: Aspirin: No NSAIDS: No Other Antiplatelet Medication: No Anticoagulants: No Steroids: No SGLT-2/GLP-1: No PATIENT MEDICATION INSTRUCTIONS: On the morning of your surgery, please take only the following medications, with a small sip of water: famotidine (PEPCID) 20 MG tablet levETIRAcetam (KEPPRA) 500 MG tablet pregabalin (LYRICA) 75 MG capsule divalproex (DEPAKOTE) 500 MG enteric coated tablet DO NOT TAKE Naltrexone within 3 days of the procedure - LAST DOSE 10/29/2024 Do not take any Aspirin 7 days before the surgery. Do not take any Ibuprofen products/NSAIDs 3 days before surgery. May take over the counter Acetaminophen (Tylenol) as needed for pain. Do not take any herbal medications 7 days prior to surgery (Fish Oil, Ginseng, Ginko Biloba) DAY OF SURGERY NOTES: Surgery Information Booklet Please use this CHECKLIST to prepare for your surgery/procedure: Assume that any lab or testing done during your Pre-admission testing appointment is within normal limits unless otherwise contacted. Expect a call from [facility] one business day prior to surgery for surgery arrival time and location. Please plan to restart your medications the day after surgery unless otherwise explicitly instructed. Please contact your surgeon s/proceduralist s office for any surgical or recovery types of questions. CANCELLING YOUR SURGERY/PROCEDURE: If you get a cold, are not feeling well, or become , please call your surgeon s office as soon as possible. Refer to your Preparing for Your Surgery/Procedure booklet or [email or web address] if you have questions. Contact the Pre-Admission Testing department at [phone] or your surgeon's office with any questions that are not answered. Eating and drinking before surgery: Adult Patients: Plain water withOUT additives is acceptable up to 2 hours prior to surgery arrival time. No food or any other type of liquids for at least 8 hours prior to surgery arrival time. A sip of water with morning medications is acceptable. Enhanced Recovery After Surgery (ERAS), bariatric, and endoscopy/colonoscopy patients should follow their surgeon s/proceduralist s instructions for clear fluids prior to surgery. Patients whose assigned sex at was female, and are starting puberty or beyond, will be urine tested for per hospital policy. Pediatric Patients (under the age of 1212 [...] for surgery. ON THE DAY OF SURGERY: DO bring your ID, insurance card, medication list, and a small amount of bai for filling prescriptions and any medical co-pays. Do NOT wear any jewelry including rings, earrings, or mouth, tongue, or body piercings. Metal jewelry could cause constriction, amputation, or stafford. Loose or bulky things in your mouth can be unsafe and result in breathing problems. DO bring glasses if you wear contacts and other assistance items such as oxygen, inhaler, cane, walker, etc. Do NOT bring valuables, credit cards, or large amounts of bai. Do NOT wear lotion or strong-smelling fragrance (perfume, cologne, cream or lotion). ARRANGE FOR A RIDE: If you are [...] stay with you after surgery. Please call [employer] if you need transportation assistance or have concerns about going home [phone]. PEDIATRIC or ADOLESCENTS: Parents or a legal guardian must remain at the hospital during surgery. You will need to make childcare arrangements for your other small children to remain at home or bring an adult with you who can supervise them in the waiting area while you are with your child. Please bring legal guardianship papers with you if applicable. Patients whose assigned sex at was female, and are starting puberty or beyond, will be urine tested for per hospital policy. SLEEP APNEA PATIENTS: Bring your sleep apnea machine and mask. PLEASE BE ON TIME. A late arrival may result in the cancellation/ delay of your surgery. A risk of anesthesia is nausea and/or [...] signs of dehydration. [facility] you [facility] [place]; it is our pleasure to care for you. Dacia Martins RN Time Spent Performing this Telephone History: 35 [1] Past Medical History: Diagnosis Date ADHD (attention deficit hyperactivity disorder) OSH H+P 01/25/19 Anemia OSH H+P 01/25/19 Autism ([facility]) OSH H+P 01/25/19 Cerebral palsy ([facility]) Mild, OSH H+P 01/25/19 Cholelithiasis OSH H+P 01/25/19 Chronic constipation OSH H+P 01/25/19 Disruptive behavior disorder OSH H+P 01/25/19 Dyspepsia OSH H+P 01/25/19 Hypothyroid OSH H+P 01/25/19 Impulse control disorder OSH H+P 01/25/19 Intermittent explosive disorder OSH H+P 01/25/19 Myopia OSH H+P 01/25/19 Osteopenia OSH H+P 01/25/19 Pervasive developmental disorder (HCC) OSH H+P 01/25/19 Seasonal allergies OSH H+P 01/25/19 Seizure disorder ([facility]) OSH H+P 01/25/19 Severe intellectual disability OSH H+P 01/25/19 [2] Patient Active Problem List Diagnosis Code Cerebral palsy ([facility]) G80.9 Dental caries K02.9 Dental decay K02.9 Hamstring tightness M62.89 Examination following surgery Z09 Crouched gait R26.89 Caries K02.9 Anorexia R63.0 Disruptive behavior disorder F91.9 Impulse control disorder F63.9 Osteoporosis M81.0 Other bipolar disorder ([facility]) F31.89 Autism spectrum disorder ([facility]) F84.0 Severe intellectual disability with intelligence quotient 20 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 F72 Seizure disorder ([facility]) G40.909 Hypothyroidism, unspecified E03.9 Epilepsy, unspecified, not intractable, without status epilepticus ([facility]) G40.909 Bipolar 1 disorder ([facility]) F31.9 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 K02.9 [3] Past Surgical History: Procedure Laterality Date CHOLECYSTECTOMY 2008 OSH H+P 01/25/19 DENTAL RESTORATIONS N/A 02/11/2019 Procedure: DENTAL RESTORATIONS; Surgeon: Fernando Kurtz DDS; Location: [facility]; Service: Dental DENTAL RESTORATIONS N/A 11/05/2020 Procedure: DENTAL RESTORATIONS; Surgeon: Dru Friedman DDS; Location: [facility]; Service: Dental DENTAL RESTORATIONS N/A 01/08/2024 Procedure: DENTAL RESTORATIONS; Surgeon: Stacie Torres DMD; Location: [facility]; Service: Dental [4] Social History Socioeconomic History Marital status: Single Tobacco Use Smoking status: Never Smokeless tobacco: Never Substance and Sexual Activity Alcohol use: Not Currently Drug use: Not Currently documented in this encounter [facility] 07-18-2024 History of Present illness Narrative Teaching Physician Note: I saw and evaluated the patient. I personally obtained the michelle and critical portions of the history and physical exam. I reviewed the resident's documentation and discussed the patient with the resident. I agree with the resident's medical decision making as documented in the resident's note. Moo Schilling DMD, MD Images from the original note were not included. [facility] PATIENT VISIT CHIEF COMPLAINT: Pain HISTORY OF PRESENT ILLNESS: Pt is a 39yoF, PMH remarkable for ADHD, Autism, Cerebral palsy, Impulse control disorder, seizure disorder, osteoporosis (pt has hx of alendronate 5+yrs stopped in 12/2023) , bipolar disorder, [place] [facility]12,13,14. PAST MEDICAL [...] disorder [F63.9] Osteoporosis [M81.0] Other bipolar disorder ([facility]) [F31.89] Autism spectrum disorder (HCC) [F84.0] Severe intellectual disability with intelligence quotient 20 to 34 [F72] Seizure disorder ([facility]) [G40.909] Hypothyroidism, unspecified [E03.9] Epilepsy, unspecified, not intractable, without status epilepticus ([facility]) [G40.909] Bipolar 1 disorder ([facility]) [F31.9] REVIEW OF SYSTEMS: A 12-point review of systems was completed. Negative unless otherwise stated in HPI. MEDICATIONS: Current Outpatient Medications Medication Sig Dispense Refill Cariprazine HCl (Vraylar) 6 MG CAPS capsule guaifenesin-dextromethorphan (MUCINEX DM) 30-600 MG tablet Promethazine HCl [...] DENTAL RESTORATIONS; Surgeon: Fernando Kurtz DDS; Location: [facility] [place]; Service: Dental DENTAL RESTORATIONS N/A 11/05/2020 Procedure: DENTAL RESTORATIONS; Surgeon: Dru Friedman DDS; Location: [facility]; Service: Dental DENTAL RESTORATIONS N/A 01/08/2024 Procedure: DENTAL RESTORATIONS; Surgeon: Stacie Torres DMD; Location: [facility] [place]; Service: Dental SOCIAL HX: Tobacco: Never CLINICAL EXAMINATION Extraoral examination: No significant findings No s/s of infection, redness or tenderness to palpation No facial asymmetry or swelling No appreciable LAD No tenderness to palpation of temporalis or masseter Asymptomatic function Intraoral examination: No s/s of infection or tenderness to palpation Erythematous mucosa around dentition with plaque accumulation Occlusion stable Oral hygiene: Poor Caries noted on teeth #12,13,14 Note: pt would not cooperate for thorough evaluation. RADIOGRAPHIC INTERPRETATION: PA radiographs from outside provider retained in clinic files and shows decay on teeth listed for extraction in the referral. DIAGNOSIS: Caries [[id number]] ASSESSMENT: Pt is a 39yoF, PMH remarkable for ADHD, Autism, Cerebral palsy, Impulse control disorder, seizure disorder, osteoporosis, bipolar disorder, referred to [facility] for extraction of teeth #12,13,14, which require removal due to decay. Note: Will discuss risk of osteonecrosis w/POA pt's mother Gabriela Rodriguez ([phone]) & get phone consent. PLAN: Our plan is to extract the teeth under [place] @ [facility] due to pt medical history and lack of cooperation. Emerson Herbert DMD Images from the original note were not included. Images from the original note were not included. documented in this encounter [facility] 07-14-2024 Telephone encounter Note Please call [facility] back at Telephone Information: To discuss the need to remove teeth apparently pt mother wants a detailed explanation form facility as why thye extraction is needed [facility] did read that it was due to decay and stated this to facility [facility] 07-14-2024 Miscellaneous Notes Please call [facility] back at Telephone Information: To discuss the need to remove teeth apparently pt mother wants a detailed explanation form facility as why thye extraction is needed [facility] did read that it was due to decay and stated this to facility Missed Call Pt's mom/guardian, Gabriela, said she missed a call from Oral Surgery and would like a call back. Please call Gabriela at [phone]. Thanks! documented in this encounter [facility] 07-13-2024 Telephone encounter Note Missed Call Pt's mom/guardian, Gabriela, said she missed a call from Oral Surgery and would like a call back. Please call Gabriela at [phone]. Thanks! [facility] 01-11-2024 Telephone encounter Note pt was seen in OR 01/08/24 , Stacie Montalvo DMD recommended that the pt be seen by [facility] fro care & follow up. in progess notes it states Referral placed to [facility] but NO referral can be found in pt's chart. please place referral for oral surgery. Message sent to [facility] Kary on January 13 2024 board. Message placed on board 01/11/24 @ [address] [facility] 01-11-2024 Miscellaneous Notes pt was seen in OR 01/08/24 , Stacie Montalvo DMD recommended that the pt be seen by [facility] fro care & follow up. in progess notes it states Referral placed to [facility] but NO referral can be found in pt's chart. please place referral for oral surgery. Message sent to [facility] Kary on January 13 2024 board. Message placed on board 01/11/24 @ 1152 am documented in this encounter [facility] 01-08-2024 History of Present illness Narrative 1605 Discharge instructions reviewed, caregiver states pt on mouth was at home therefore does not wish to wait for prescription documented in this encounter [facility] 01-08-2024 Hospital Discharge instructions Divine Simon RN - 01/08/2024 3:48 PM EDT Images from the original note were not included. Dental abscess The Basics Written by the doctors and editors at [facility] What is a dental abscess? -- A [...] do anything to prevent another dental abscess? [place] your teeth at least 2 times a [...] process is complete. This topic retrieved from [employer] on: Jul 29, 2023. Topic [id number] Version 1.0 Release: 32.2.4 - C32.71 2023 [employer]. and/or its affiliates. All rights reserved. figure 1: Dental abscess Adental abscess is a collection of pus from an infection in the mouth. Dentalabscesses can form in the gums, next to a tooth, or in the root of a tooth. Graphic [id number] Version 1.0 Consumer Information Use and Disclaimer [...] or approved for treating a specific patient. [employer] and its affiliates disclaim any warranty or liability relating to this information or the use thereof.The use of this information is governed by the Terms of Use, available at https://www.[employer]an[employer].Good.Co/e n/know/hworkuic-bszzzjalxnkij-j erms. 2023 [employer] and its affiliates and/or licensors. All rights reserved. Copyright 2023 [employer] and/or its affiliates. All rights reserved. PERIOPERATIVE DISCHARGE/HOME-GOING INSTRUCTIONS ANESTHESIA - GENERAL (ADULT) If a problem arises, you may contact your physician by calling [phone] and asking for the resident supervisor insulation for Dental service. Special Care Needs: Activity: [...] very uncomfortable and can t urinate, call [phone] or come to the emergency room. The day after surgery, a nurse will call to check on you. However, if there are any questions or concerns, please call us at the number listed in the home going instructions. documented in this encounter [facility] 01-08-2024 History and physical note Surgical [...] specific) Chandler Marin DDS 01/08/2024 1:[address] [facility] 01-08-2024 History and physical note Surgical [...] 1:47 PM documented in this encounter [facility] 01-08-2024 Miscellaneous Notes Brief Operative Note PHE OR 3 Vee Sarabia 38 year old female Surgical Contact Serial Number: [id number] Preoperative Diagnosis: ADHD (attention deficit hyperactivity disorder) ([facility]) 10/08/2007 Anorexia 03/16/2008 Cerebral palsy ([facility]) 10/08/2007 Late effect of adverse effect of drug, medical or biological substance 05/02/2009 Mental impairment ([facility]) 10/08/2007 Mental retardation Other bipolar disorder ([facility]) 10/08/2007 Other conduct disorders ([facility]) 10/08/2007 Seizure disorder ([facility]) 10/08/2007 Postoperative Diagnosis: ADHD (attention deficit hyperactivity disorder) ([facility]) 10/08/2007 Anorexia 03/16/2008 Cerebral palsy ([facility]) 10/08/2007 Late effect of adverse effect of drug, medical or biological substance 05/02/2009 Mental impairment ([facility]) 10/08/2007 Mental retardation Other bipolar disorder ([facility]) 10/08/2007 Other conduct disorders ([facility]) 10/08/2007 Se[place] 10/08/2007 Procedures: Full mouth X-ray [36765] Full mouth cleaning [99536] Restorations [17719] Surgeon(s): Surgeon(s): Stacie Torres DMD Yoris, [place], DDS Staff: Tip Cutter Nurse: Gabriel Hinkle Guide Rail Cleaner: Chandler Parham DDS Anesthesia: General Anesthesiologist: Justin [...] year old female Surgical Contact Serial Number: [id number] Preoperative Diagnosis: ADHD (attention deficit hyperactivity disorder) ([facility]) 10/08/2007 Anorexia 03/16/2008 Cerebral palsy ([facility]) 10/08/2007 Late effect of adverse effect of drug, medical or biological substance 05/02/2009 Mental impairment ([facility]) 10/08/2007 Mental retardation Other bipolar disorder [place] 10/08/2007 Other conduct disorders ([facility] 10/08/2007 Seizure disorder [place] 10/08/2007 Postoperative Diagnosis: ADHD (attention deficit hyperactivity disorder) ([facility] 10/08/2007 Anorexia 03/16/2008 Cerebral palsy ([facility] 10/08/2007 Late effect of adverse effect of drug, medical or biological substance 05/02/2009 Mental impairment ([facility] 10/08/2007 Mental retardation Other bipolar disorder ([facility] 10/08/2007 Other conduct disorders ([facility] 10/08/2007 Seizure disorder ([facility] 10/08/2007 Surgeon: Stacie Torres DMD Satellite Installation Technician Surgeon: Chandler Marin DDS Anesthesia: General- Nasal [...] were discussed with the patient and/or legal lifeline representatives. The risks, benefits and alternatives were reviewed. Questions regarding blood transfusions were answered. The patient /or the patient s legal lifeline representatives agree with the plan for transfusion of blood and/or blood components. documented in this encounter [facility] 01-08-2024 Surgery Postoperative evaluation and management note Brief Operative Note PHE OR 3 Vee Sarabia 38 year old female Surgical Contact Serial Number: [id number] Preoperative Diagnosis: ADHD (attention deficit hyperactivity disorder) ([facility] 10/08/2007 Anorexia 03/16/2008 Cerebral palsy ([facility] 10/08/2007 Late effect of adverse effect of drug, medical or biological substance 05/02/2009 Mental impairment ([facility] 10/08/2007 Mental retardation Other bipolar disorder ([facility] 10/08/2007 Other conduct disorders ([facility] 10/08/2007 Seizure disorder ([facility] 10/08/2007 Postoperative Diagnosis: ADHD (attention deficit hyperactivity disorder) ([facility] 10/08/2007 Anorexia 03/16/2008 Cerebral palsy ([facility] 10/08/2007 Late effect of adverse effect of drug, medical or biological substance 05/02/2009 Mental impairment ([facility] 10/08/2007 Mental retardation Other bipolar disorder ([facility] 10/08/2007 Other conduct disorders ([facility] 10/08/2007 Seizure disorder ([facility] 10/08/2007 Procedures: Full mouth X-ray [60868] Full mouth cleaning [52173] Restorations [62729] Surgeon(s): Surgeon(s): Stacie Torres DMD Yoris, Orlando, DDS Staff: Tip Cutter Nurse: Gabriel Hinkle Guide Rail Cleaner: Chandler Parham DDS Anesthesia: General Anesthesiologist: Justin [...] Chandler Marin DDS 01/08/2024 1:[address] [facility] 01-08-2024 Surgery Surgical operation note Operative Note PHE OR 3 Vee Sarabia 38 year old female Surgical Contact Serial Number: [id number] Preoperative Diagnosis: ADHD (attention deficit hyperactivity disorder) ([facility]) 10/08/2007 Anorexia 03/16/2008 Cerebral palsy ([facility]) 10/08/2007 Late effect of adverse effect of drug, medical or biological substance 05/02/2009 Mental impairment ([facility]) 10/08/2007 Mental retardation Other bipolar disorder ([facility]) 10/08/2007 Other conduct disorders ([facility]) 10/08/2007 Seizure disorder [place] 10/08/2007 Postoperative Diagnosis: ADHD (attention deficit hyperactivity disorder) ([facility]) 10/08/2007 Anorexia 03/16/2008 Cerebral palsy ([facility] 10/08/2007 Late effect of adverse effect of drug, medical or biological substance 05/02/2009 Mental impairment ([facility]) 10/08/2007 Mental retardation Other bipolar disorder ([facility]) 10/08/2007 Other conduct disorders ([facility]) 10/08/2007 Seizure disorder ([facility] 10/08/2007 Surgeon: Stacie Torres DMD Satellite Installation Technician Surgeon: Chandler Marin DDS Anesthesia: General- Nasal [...] procedure. Chandler Marin DDS 01/08/2024 1:53 PM [facility] Work Phone: 01-08-2024 Progress note Formatting of t his note is different from the original. Blood Attestation: ATTESTATION OF INFORMED CONSENT FOR BLOOD: The transfusion of blood and/or blood components were discussed with the patient and/or legal lifeline representatives. The risks, benefits and alternatives were reviewed. Questions regarding blood transfusions were answered. The patient /or the patient s legal lifeline representatives agree with the plan for transfusion of blood and/or blood components. [facility] Work Phone: 01-08-2024 History of Present illness Narrative ----- Monday, January 08, 2024 at 3:45:54 PM ----- ----- Provider: Jarrett Torres DMD -- Clinic: [facility] ----- Pt was seen in OR under general anesthesia. comp exam, FMX and 4 quads SRP completed. Topical fluoride applied. #8 MIDLF broken tooth restored with composite. #12,13,14 present with non- restorable cervical lesions interproximally. Due to pt. group home Fosamax usage, recommend this patient be seen by [facility] for care and follow ups. Referral placed to [facility] See note attached. Operative Note PHE OR 3 Vee Sarabia 38 year old female Surgical Contact Serial Number: [id number] Preoperative Diagnosis: ADHD (attention deficit hyperactivity disorder) ([facility]) 10/08/2007 Anorexia 03/16/2008 Cerebral palsy ([facility]) 10/08/2007 Late effect of adverse effect of drug, medical or biological substance 05/02/2009 Mental impairment ([facility]) 10/08/2007 Mental retardation Other bipolar disorder ([facility]) 10/08/2007 Other conduct disorders ([facility]) 10/08/2007 Seizure disorder ([facility]) 10/08/2007 Postoperative Diagnosis: ADHD (attention deficit hyperactivity disorder) ([facility]) 10/08/2007 Anorexia 03/16/2008 Cerebral palsy ([facility]) 10/08/2007 Late effect of adverse effect of drug, medical or biological substance 05/02/2009 Mental impairment ([facility]) 10/08/2007 Mental retardation Other bipolar disorder ([facility]) 10/08/2007 Other conduct disorders ([facility]) 10/08/2007 Seizure disorder ([facility]) 10/08/2007 Surgeon: Stacie Torres DMD Satellite Installation Technician Surgeon: Chandler Marin DDS Anesthesia: General- Nasal [...] surgery: Stable documented in this encounter [facility] 01-05-2024 History of Present illness Narrative Images [...] min's after pt was dropped off at [facility] vee had a grand mal seizure. Movements, [...] Diagnosis Date ADHD (attention deficit hyperactivity disorder) ([facility]) 10/08/2007 Anorexia 03/16/2008 Cerebral palsy ([facility]) 10/08/2007 Late effect of adverse effect of drug, medical or biological substance 05/02/2009 Mental impairment ([facility]) 10/08/2007 Mental retardation Other bipolar disorder ([facility] 10/08/2007 Other conduct disorders ([facility] 10/08/2007 Seizure disorder ([facility] 10/08/2007 Weight loss 03/16/2008 Past Surgical History: [...] clinic: 3 months documented in this encounter [facility] 12-28-2023 Telephone encounter Note Anesthesia consent scanned into [employer]. [facility] 12-28-2023 Miscellaneous Notes Anesthesia consent scanned into [employer]. documented in this encounter [facility] 12-25-2023 [facility]ctor Evans[facility] 12/25/2023 10:36 AM EDT On the [...] for pain Please hold all Vitamin E, [place] 3, fish oil and herbal supplements for 1 week prior to surgery Please hold Naltrexone 3 days prior to surgery. Last dose on 01/03. Please use this CHECKLIST to prepare for your surgery/procedure: ? Assume that any lab or testing done during your Pre-admission testing appointment is within normal limits unless otherwise contacted. ? Expect a call from [facility] one business day prior to surgery for [...] your Preparing for Your Surgery/Procedure booklet or [email or web address] if you have questions. Contact the Pre-Admission Testing department at [phone] or your surgeon's office with any questions [...] stay with you after surgery. Please call [facility] if you need transportation assistance or have concerns about going home [phone]. ? PEDIATRIC or ADOLESCENTS: Parents or a [...] signs of dehydration. Thank you for choosing [facility]; it is our pleasure to care for you documented in this encounter [facility] 12-25-2023 Instructions Víctor Elliott APRN-CNP - 12/25/2023 10:36 AM EDT On [...] for pain Please hold all Vitamin E, [place] 3, fish oil and herbal supplements for 1 week prior to surgery Please hold Naltrexone 3 days prior to surgery. Last dose on 01/03. Please use this CHECKLIST to prepare for your surgery/procedure: ? Assume that any lab or testing done during your Pre-admission testing appointment is within normal limits unless otherwise contacted. ? Expect a call from [facility] one business day prior to surgery [...] your Preparing for Your Surgery/Procedure booklet or [email or web address] if you have questions. Contact the Pre-Admission Testing department at [phone] or your surgeon's office with any questions [...] with you after surgery. Please call [facility] Social Work if you need transportation assistance or have concerns about going home [phone]. ? PEDIATRIC or ADOLESCENTS: Parents or a [...] signs of dehydration. Thank you for choosing [facility]; it is our pleasure to care for you documented in this encounter [facility] 12-25-2023 History of Present illness Narrative Images from the original note were not included. Pre-Admission Testing Consultation Vee Sarabia, [id number] 38 year old Female 12/26/2023 Consult placed to [facility] by Dr. Almaraz due to significant PMH of caries. [facility] Triage Risk Score Total Score: 2 2 Patient is on more than 2 antihypertension medications. Vee Saraiba is scheduled for DENTAL RESTORATIONS on 01/08/2024. Pre-Op diagnosis of: Pre-Op Diagnosis Codes: * Caries [K02.9] HISTORY OF PRESENT ILLNESS: Patient presents today with a history of caries. Patient is here for pre-admission optimization and education prior to surgery. She is accompanied with her caregiver at [place], Dora Saucedo, who is helping review the patient's current and past medical history. Gabriela Rodriguez (mother--phone-- [phone]) is legal guardian. RECENT ILLNESS: Serious illness [...] DENTAL RESTORATIONS; Surgeon: Fernando Kurtz DDS; Location: [facility] [place]; Service: Dental DENTAL RESTORATIONS N/A 11/05/2020 Procedure: DENTAL RESTORATIONS; Surgeon: Dru Friedman DDS; Location: [facility] Surgery [place]; Service: Dental Past Medical History and Review of Systems Pulmonary - negative ROS Dental Comment: Caries--s/p dental restorations x2 Endo (+) hypothyroidism Comment: Hyponatremia perianesthesia nurse Comment: LMP: unknown Neuro/Psych (+) seizures, cerebral [...] PM 12/26/[address] [facility] 12-25-2023 History of Present illness Narrative Images from the original note were not included. Pre-Admission Testing Consultation Vee Sarabia, [id number] 38 year old Female 12/26/2023 Consult placed to [facility] by Dr. Almaraz due to significant PMH of caries. [facility] Triage Risk Score Total Score: 2 [...] She is accompanied with her caregiver at [place], Dora Saucedo, who is helping review the patient's current and past medical history. Gabriela Rodriguez (mother--phone-- [phone]) is legal guardian. RECENT ILLNESS: Serious illness [...] DENTAL RESTORATIONS; Surgeon: Fernando Kurtz DDS; Location: [facility] Surgery [place]; Service: Dental DENTAL RESTORATIONS N/A 11/05/2020 Procedure: DENTAL RESTORATIONS; Surgeon: Dru Friedman DDS; Location: [facility] Surgery [place]; Service: Dental Past Medical History and Review of Systems Pulmonary - negative ROS Dental Comment: Caries--s/p dental restorations x2 Endo (+) hypothyroidism Comment: Hyponatremia perianesthesia nurse Comment: LMP: unknown Neuro/Psych (+) seizures, cerebral [...] PM 12/26/[address] encounter [facility] 12-25-2023 History of Present illness Narrative Images from the original note were not included. Pre-Admission Testing Consultation Vee Sarabia, [id number] 38 year old Female 12/26/2023 Consult placed to [facility] by Dr. Almaraz due to significant PMH of caries. [facility] Triage Risk Score Total Score: 2 [...] She is accompanied with her caregiver at [place], Dora Saucedo, who is helping review the patient's current and past medical history. Gabriela Rodriguez (mother--phone-- [phone]) is legal guardian. RECENT ILLNESS: Serious illness [...] DENTAL RESTORATIONS; Surgeon: Fernando Kurtz DDS; Location: [facility] Surgery [place]; Service: Dental DENTAL RESTORATIONS N/A 11/05/2020 Procedure: DENTAL RESTORATIONS; Surgeon: Dru Friedman DDS; Location: [facility] Surgery [place]; Service: Dental Past Medical History and Review of Systems Pulmonary - negative ROS Dental Comment: Caries--s/p dental restorations x2 Endo (+) hypothyroidism Comment: Hyponatremia perianesthesia nurse Comment: LMP: unknown Neuro/Psych (+) seizures, cerebral [...] previous ECGs available Confirmed by LORENZA PARKS ([id number]) on 12/28/2023 8:11:02 PM ECHO: Echocardiogram date: [...] PM 12/26/[address] encounter [facility] 09-17-2023 Note [id number] [facility] 09-16-2023 Hospital Discharge instructions Patient Education 09/16/2023 08:49:14 Gastritis, Adult, Uxyg-rm-Pbfy Gastritis, Adult Gastritis is irritation and swelling [...] Follow these instructions at home: Medicines Take cohv-fgb-gfrpaco and prescription medicines only as told by [...] provider. Document Revised: 09/07/2021 Document Reviewed: 09/07/2021 [employer] Patient Education 2022 [employer] 09/16/2023 08:49:01 Endoscopy, Care After Procedure [facility] (CUSTOM) Endoscopy Care After Procedure Please read the [...] Document Re-Released: 10/26/2006 ExitCare Patient Information 2009 [email or web address]. Follow Up Care 09/10/2023 09:54:49 With:Jessee Nina Address: [address] [place] [address], [address] [place] [address]- [phone] Business (1) When:1 to 2 weeks Comments:Call for any problems. [facility] 09-16-2023 Note Endoscopy Care After [...] blood. Document Released: 12/16/2004 Document Re-Released: 10/26/2006 [email or web address]? Patient Information ?2009 [email or web address]. Infectious Disease Gastritis, Adult Gastritis is irritation [...] these instructions at home: Medicines ? Take ybll-bhi-htyqaci and prescription medicines only as told by [...] ask your do (more content not included)... [facility] 07-22-2022 History of Present illness Narrative ----- Friday, July 22, 2022 at 11:19:05 AM ----- ----- Provider: Grayson Ku, Resident -- Clinic: [place] ----- OR EVALUATION Patient presents for evaluation [...] Legal Guardian is Gabriela Rodriguez( Mother ): [phone] Dad Bhargav Crenshawaudra [phone] Contact information; [facility] [phone] Extension# [phone] Next Visit: OR ----- Signed on Friday, July 22, 2022 at 12:31:54 PM ----- ----- Provider: Charbel Jain DDS -- Clinic: [place] ----- documented in this encounter [facility] 07-14-2020 Note Patient Outreach ([place] [facility]AM[facility]) VEE SARABIA ([id number]) 1985 F NFR Date Time Provider Department 07/14/20 PUMA SPEAR During your visit today, we recorded the following information about you: Allergies As of Date: 07/14/2020 Noted Allergy Reaction SEASONAL ALLERGIES 11/08/2010 16 - Unknown Date Reviewed: 07/05/2019 Reviewed by: Clover Ng Ma - Fully Assessed Order(s):SARS-COVID VACCINE 1ST DOSE APPT [[id number]] Order #: [id number] FUTURE Prescriptions as of 07/14/2020 Sig: FLUTICASONE [...] by mouth three * DIVALPROEX 125 MG TABLET,SRAA* Take 125 mg by mouth once mackenzie* [...] Encounter Status:Closed by SHERWIN DELCID on 07/17/20 [facility] Evaluation + Plan note No data available for this section [facility] Evaluation + Plan note Future Appointments Appointment Date:09/16/2023 08:00:00 AM Scheduled Provider: Location:[facility] Appointment Type:Surgery FT Future Scheduled TestsNM Gastric Emptying Study 09/10/23 [facility] Evaluation + Plan note Future Appointments Appointment Date:09/23/2023 10:30:00 AM Scheduled Provider: Location[facility] Appointment Type:NM Gastric Emptying Study (FT) Future Scheduled TestsNM Gastric Emptying Study 09/23/23 [facility] Evaluation note Diagnosis Caries- Primary [...] Loss of weight Anorexia Other bipolar disorder ([facility]/HCC) [facility] Diagnosis Seizure disorder (CMS/HCC)- Primary Unspecified epilepsy without mention of intractable epilepsy Cerebral palsy, unspecified type (CMS/HCC) Mental impairment (CMS/HCC) Unspecified mental retardation Other conduct disorders [facility] Diagnosis 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- Primary Dental caries extending into pulp Caries Unspecified dental caries Pre-op evaluation- Primary Preoperative examination, unspecified Caries Unspecified dental caries 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 Dental caries extending into pulp [facility] Diagnosis 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- Primary Dental caries extending into pulp Caries Unspecified dental caries Pre-op evaluation- Primary Preoperative examination, unspecified Caries Unspecified dental caries 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 Dental caries extending into pulp [facility] Diagnosis Caries- Primary Unspecified dental caries 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 Dental caries extending into pulp Body mass index (BMI) 31.0-31.9, adult 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- Primary Dental caries extending into pulp Caries Unspecified dental caries Caries Unspecified dental caries 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 Dental caries extending into pulp [facility] Diagnosis 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- Primary Dental caries extending into pulp 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 Dental caries extending into pulp Caries Unspecified dental caries [facility] Diagnosis 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- Primary Dental caries extending into pulp [facility] No data available for this section [facility] No data available for this section [facility] N[facility]* Service Level Authorization (Routine) - Closed Specialty Diagnoses / Procedures Referred By Contac t Referred To Contact Anesthesiology Diagnoses Caries 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 Moo Schilling DMD, MD [address] [place] [address] Phone: tel: fax: [facility]MISSION [facility] [address] [place] [address] Phone: tel: Referral ID Status Reason Start Date Expiration Date Visits Re quested Visits Authorized [id number] Closed 07/13/2024 07/13/2025 1 1 [facility] for visit Narrative* Auth/Cert (Routine) Specialty Diagnoses / Procedures Referred By Ebony snyder Referred To Contact Ambulatory Surgery Diagnoses Caries 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 Summary Purpose Family History No Family [...] Oral Surgery Diagnoses Caries Stacie Torres DMD [address] [place] [address] Moo Schilling DMD, MD [address] [place] [address] Referral ID Status Reason Start Date Expiration Date V isits Requested Visits Authorized [id number] Pending Review 02/03/2024 02/02/2025 3 3 Scheduling Instructions Please call the substation electrician supervisor Clinic at [facility] at to schedule an appointment if one was not made for you today. Question Answer Patient to be evaluated for: Extractions Tooth Number for Extraction Please evaluate patient for extractions of teeth # 12,13,14. Due to pt. group home Fosamax usage. Additional Source Comments INFORMATION SOURCE (unrecogn ized section and content) DATE CREATED AUTHOR 06/15/2021 [facility] DATE CREATED AUTHOR AUTHOR'S ORGANIZ ATION 10/01/2022 [facility] DATE CREATED AUTHOR AUTHOR'S ORGANIZ ATION 09/28/2023 [facility] DATE CREATED AUTHOR AUTHOR'S ORGANIZ ATION 09/30/2024 [facility] dical [facility] DATE CREATED AUTHOR AUTHOR'S ORGANIZ ATION 02/06/[address] [facility] Care Teams (unrecognized sec tion and content) [facility] Room Worker Relationship Specialty Start Date End Date Rm Goldman DDS [address] [place] [address] Resident Dentistry 02/21/20 Mony Adler APRN-CNP [address] [place] [address] [place] [address] VEGETABLE WORKER Anesthesiology 11/16/20 [facility] Room Worker Relationship Specialty Start Date End Date Rm Goldman DDS [address] [place] [address] Resident Dentistry 02/21/20 Mony Adler APRN-CNP [address] [place] [address] [place] [address] VEGETABLE WORKER Anesthesiology 11/16/20 [facility] Room Worker Relationship Specialty Start Date End Date Rm Goldman DDS [address] [place] [address] Resident Dentistry 02/21/20 Mony Adler APRN-CNP [address] [place] [address] [place] [address] VEGETABLE WORKER Anesthesiology 11/16/20 [facility] Room Worker Relationship Specialty Start Date End Date Rm Goldman DDS [address] [place] [address] Resident Dentistry 02/21/20 Mony Adler APRN-[employer]I SALES MANAGER [address] [place] [address] [place] [address] VEGETABLE WORKER Anesthesiology 11/16/20 [facility] Room Worker Relationship Specialty Start Date End Date Susi [id number] [address] Resident Dentistry 02/21/20 Mony Adler APRN-[employer]I SALES MANAGER [address] [place] [address] [place] [address] VEGETABLE WORKER Anesthesiology 11/16/20 [facility] Room Worker Relationship Specialty Start Date End Date SusiRm [email or web address] [address] Resident Dentistry 02/21/20 Mony Adler APRN-[employer]I SALES MANAGER [address] [place] [address] [place] [address] VEGETABLE WORKER Anesthesiology 11/16/20 [facility] Room Worker Relationship Specialty Start Date End Date Susi RmKASSIDY [address] [place] [address] Resident Dentistry 02/21/20 Mony Adler APRN-CNP [address] [place] [address] [place] [address] VEGETABLE WORKER Anesthesiology 11/16/20 [facility] Room Worker Relationship Specialty Start Date End Date Susi RmKASSIDY [address] [place] [address] Resident Dentistry 02/21/20 Mony Adler APRN-CNP [address] [place] [address] [place] [address] VEGETABLE WORKER Anesthesiology 11/16/20 [facility] Room Worker Relationship Specialty Start Date End Date Bisi GoldmananKASSIDY [address] [place] [address] Resident Dentistry 02/21/20 Mony Adler APRN-CNP [address] [place] [address] [place] [address] VEGETABLE WORKER Anesthesiology 11/16/20 [facility] Room Worker Relationship Specialty Start Date End Date SusiRmKASSIDY [address] [place] [address] Resident Dentistry 02/21/20 Mony Adler APRN-[employer] SALES MANAGER [address] [place] [address] [place] [address] VEGETABLE WORKER Anesthesiology 11/16/20 [facility] Room Worker Relationship Specialty Start Date End Date Stef Argueta MD [address] [place] [address] Referring Physician Family Medicine 08/10/23 Suzi Bates DO [address] [place] [address] Referring Physician Neurology 08/10/23 [facility] Room Worker Relationship Specialty Start Date End Date Stef Argueta MD [address] [place] [address] Referring Physician Family Medicine 08/10/23 Suzi Bates DO [address] [place] [address] Referring Physician Neurology 08/10/23 [facility] Room Worker Relationship Specialty Start Date End Date Rm Goldman, DDS [address] [place], [place] [id number] Resident Dentistry 02/21/20 Mony Adler, GONZALES-[employer]I SALES MANAGER [address] [place] [address] VEGETABLE WORKER Anesthesiology 11/16/20 [facility] Room Worker Relationship Specialty Start Date End Date Amy Farooq NP [address] [place] [address] PCP - FFS [facility] 11/16/23 Stef Argueta MD [address] [place] [address] Referring Physician Family Medicine 08/10/23 Suzi Bates DO [address] [place] [address] Referring Physician Neurology 08/10/23 [facility] Room Worker Relationship Specialty Start Date End Date Amy Farooq NP [address] [place] [address] PCP - FFS [facility] 11/16/23 Stef Argueta MD [address] [place] [address] Referring Physician Family Medicine 08/10/23 Suzi Bates DO [address] [place] [address] Referring Physician Neurology 08/10/23 [facility] Room Worker Relationship Specialty Start Date End Date Amy Farooq NP [address] [place] [address] PCP - FFS [facility] 05/18/24 Stef Argueta MD [address] [place] [address] Referring Physician Family Medicine 08/10/23 Suzi Bates DO [address] [place], [place] [address]79[address] Referring Physician Neurology 08/10/23 [facility] Room Worker Relationship Specialty Start Date End Date Amy Farooq NP [address] [place] [address] PCP - FFS [facility] 05/18/24 Stef Argueta MD [address] [place] [address] Referring Physician Family Medicine 08/10/23 Suzi Bates DO [address] [address] Referring Physician Neurology 08/10/23 [facility] Room Worker Relationship Specialty Start Date End Date Rm Goldman DDS [address] [place] [address] Resident Dentistry 02/21/20 Mony Adler, ELECTRICAL SYSTEMS DESIGN ENGINEER-[employer] SALES MANAGER [address] [place] [address] VEGETABLE WORKER Anesthesiology 11/16/20 Moo Schilling DMD, MD [address] [place] [address] Physician Oral & Maxillofacial Surgery 08/20/24 [facility] Room Worker Relationship Specialty Start Date End Date Rm Goldman DDS [address] [place] [address] Resident Dentistry 02/21/20 Mony Adler APRN-CNP [address] [place] [address] [place] [address] VEGETABLE WORKER Anesthesiology 11/16/20 Moo Schilling DMD, MD [address] [place] [address] Physician Oral & Maxillofacial Surgery 08/20/24 [facility] Room Worker Relationship Specialty Start Date End Date SusiRm DDS [address] [place] [address] Resident Dentistry 02/21/20 Mony Adler APRN-[employer]I SALES MANAGER [address] [place] [address] [place] [address] VEGETABLE WORKER Anesthesiology 11/16/20 Moo Schilling DMD, MD [address] [place] [address] Physician Oral & Maxillofacial Surgery 08/20/24 [facility] Room Worker Relationship Specialty Start Date End Date SusiRm tavarez DDS [address] [place] [address] [phone] Resident Dentistry 02/21/20 Mony Adler APRN-[employer] SALES MANAGER [address] [place] [address] [place] [address] VEGETABLE WORKER Anesthesiology 11/16/20 Moo Schilling DMD, MD [address] [place] [address] [phone] Physician Oral & Maxillofacial Surgery 08/20/24 Garnett Room Worker Relationship Specialty Start Date End Date Rm Goldman DDS [address] [place] [address] [phone] Resident Dentistry 02/21/20 Mony Adler APRN-[employer] SALES MANAGER [address] [place] [address] [place] [address] VEGETABLE WORKER Anesthesiology 11/16/20 Moo Schilling DMD, MD [address] [place] [address] [phone] Physician Oral & Maxillofacial Surgery 08/20/24 Garnett Room Worker Relationship Specialty Start Date End Date Susi RmKASSIDY [address] [place] [address] [phone] Resident Dentistry 02/21/20 Mony Adler APRN-[employer] SALES MANAGER [address] [place] [address] [place] [address] VEGETABLE WORKER Anesthesiology 11/16/20 Garnett Room Worker Relationship Specialty Start Date End Date Susi RmKASSIDY [address] [place] [address] [id number] Resident Dentistry 02/21/20 Mony Adler APRN-[employer] SALES MANAGER [address] [place] [address] [place] [address] VEGETABLE WORKER Anesthesiology 11/16/20 Garnett Room Worker Relationship Specialty Start Date End Date SusiRm tavarez DARRYLMalu [address] [place] [address] [phone] Resident Dentistry 02/21/20 Mony Adler APRN-[employer] SALES MANAGER [address] [place] [address] [place] [address] VEGETABLE WORKER Anesthesiology 11/16/20 Moo Schilling DMD, MD [address] [place] [address] [phone] Physician Oral & Maxillofacial Surgery 08/20/24 Garnett Room Worker Relationship Specialty Start Date End Date SusiRm tavarez DDS [address] [place] [address] [phone] Resident Dentistry 02/21/20 Mony Adler APRN-[employer] SALES MANAGER [address] [place] [address] [place] [address] VEGETABLE WORKER Anesthesiology 11/16/20 Moo Schilling DMD, MD [address] [place] [address] [id number] Physician Oral & Maxillofacial Surgery 08/20/24 Garnett Room Worker Relationship Specialty Start Date End Date Rm Goldman DDS [address] [place] [address] [phone] Resident Dentistry 02/21/20 Mony Adler APRN-[employer] SALES MANAGER [address] [place] [address] [place] [address] VEGETABLE WORKER Anesthesiology 11/16/20 Moo Schilling DMD, MD [address] [place] [address] [phone] Physician Oral & Maxillofacial Surgery 08/20/24 Reason for Visit (unrecogniz ed section and content) Reason Onset Date Comments Pre-surgical Evaluation 01/06/2024 DD adult dental restorations 01/07 under [facility] at [facility]. PAT completed - consents obtained. MARY RN spoke to Cassidy, confirmed NPO except water only until 0900 (Cassidy stated pt does not like and will not drink water), [facility] address, and 1100 arrival time Specialty Diagnoses / Procedures Referred By Ebony t Referred To Contact Ambulatory Surgery Diagnoses Caries Caries [K02.9] Procedures ANESTHESIA, INTRAORAL PROC, W/BX; NOS UNLISTED PROCEDURE, DENTOALVEOLAR STRUCTURES DENTAL RESTORATIONS Stacie Torres DMD [address] [place] [address] [employer] [address] [place] [address] Phone: [phone] Referral ID Status Reason Start Date Expiration Date Visits Re quested Visits Authorized [id number] 3 Reason Onset Date Comments Referral needs placed for OS 01/11/2024 Reason Onset Date Comments Refill 02/03/2024 Reason Comments Seizures Reason Onset Date Comments message to provider 10/15/2024 Reason Onset Date Comments PAT 10/28/2024 Surgery informat ion Reason Onset Date Comments Cancel Appointment 11/02/2024 Reason Onset Date Comments pt requested call 07/13/2024 Continuous Active and Recently Administ ered Medications [...] (Given - Provid er: Janie Coreas RN) Scheduled Medication Order 01/16/2025 01/17/2025 01/18/2025 ceFAZolin Sodium (ANCEF) 2,000 mg in sterile water for injection 10 mL IV push (COMPLETED) 2,000 mg, Intravenous, ONCE, 1 dose, On Thu01/18/25 at 1230 1219 (IV New Bag - P rovider: Marybeth Gabriel [facility]) chlorhexidine (PERIDEX) 0.12 % oral solution 15 mL, Swish & Spit, ONCE, 1 dose, On Thu01/18/25 at 1230, Pre-op 1230 (Due) Continuous Medication Order 01/16/2025 01/17/2025 01/18/2025 lactated ringers iv infusion Intravenous, at 75 mL/hr, CONTINUOUS, Starting on Thu01/18/25 at 1230, Until Discontinued 1230 (Due) PRN Medication Order 01/16/2025 01/17/2025 01/18/2025 acetaminophen (TYLENOL) tablet 650 mg, Oral, ONCE PRN, Starting on Thu01/18/25 at 1125, Until Thu01/18/25 at 1724, Mild Pain (pain score 1,2,3), PACU Now BUPivacaine (PF) (MARCAINE) 20 mL, lidocaine-EPINEPHrine (XYLOCAINE) 1 %-1:270991 20 mL, dose administered = 8 mL given 40 mL sc injection (CANCELED) PRN, Starting on Thu01/18/25 at 1226, Until Thu01/18/25 at 1304 1226 (Given - Provid er: Robin De La Cruz DDS - Comment: mouth prior to extractions)1232 (Given - Provider: Robin De La Cruz DDS) gelatin adsorbable (SURGIFOAM) 100 sponge (CANCELED) PRN, Starting on Thu01/18/25 at 1233, Until Thu01/18/25 at 1304, Intra-op 1233 (Given - Provid er: Robin De La Cruz, DDS - Comment: to extraction sites) HYDROmorphone (DILAUDID) 1 mg/mL injection 0.5 mg, Intravenous, PACU EVERY 15 MIN PRN X 4 DOSES, 4 doses, Starting on Thu01/18/25 at 1125, Until Thu01/18/25 at 2359, Severe Pain (pain score 7,8,9,10), PACU Now HYDROmorphone (DILAUDID) 1 mg/mL injection 0.2 mg, Intravenous, PACU EVERY 15 MIN PRN X 4 DOSES, 4 doses, Starting on Thu01/18/25 at 1125, Until Thu01/18/25 at 2359, Moderate Pain (pain score 4,5,6), PACU Now meperidine (DEMEROL) 25 MG/ML injection 25 mg, Intravenous, PACU EVERY 15 MIN PRN X 2 DOSES, Starting on Thu01/18/25 at 1125, Until Thu01/18/25 at 1724, Shivering, PACU Now naloxone (NARCAN) 0.4 MG/ML injection 0.4 mg, Intravenous, PRN, Starting on Thu01/18/25 at 1125, Until Discontinued, Respiratory Rate Less Than 8 for adults and less than 12 for Peds or for suspected overdose, PACU Now ondansetron (ZOFRAN) 4 MG/2ML injection 4 mg, Intravenous, PACU ONCE PRN, Starting on Thu01/18/25 at 1125, Until Thu01/18/25 at 1724, Nausea, Vomiting, PACU Now oxyCODONE immediate release tablet 10 mg, Oral, PRN, 1 dose, Starting on Thu01/18/25 at 1125, Until Discontinued, Moderate Pain (pain score 4,5,6), PACU Now sodium chloride 0.9 % injection 3 mL, Intravenous, PRN, Starting on Thu01/18/25 at 1125, Until Discontinued, For medication administration and blood draw, PACU Now FOR RECORDS PERTAINING TO PATIENTS WHO ARE [...] BE BASED ON THE PRIMARY CLINICAL RECORDS. [facility]. provides no warranty or guarantee of the accuracy or completeness of information in this document.
== END 2025-02-09 07:14 | disposition home or self-care (01) ==
LOC: LAB 07:14
PROVIDERS: PCP Family Medicine; Visit Provider Family Medicine
DX: G40.909 Epilepsy, unspecified, not intractable, without status epilepticus (principal); F31.89 Other bipolar disorder; Z79.899 Other long term (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
CPT/HCPCS: 36415; 80164

== ENCOUNTER 2025-03-29 07:10 | Outpatient (OUT) | payer MEDICAID, SELFPAY ==
--- OUTSIDE RECORDS SUMMARY | 2025-03-29 07:13 | XMS_ITS | Clinical Summary ---
Author Organization [facility] Address [address] [place], [place] [id number] Care Team Providers Care Treasury Representative Name Role Phone Chaim Restrepo DO Primary Care Provider + [phone] Allergies Active AllergyReactionsCriticalityNoted DateCommentsSeasonal AllergiesUnknown 11/08/2010 Medications MedicationSigDispense QuantityRefillsLast FilledStart DateEnd DateStatus benztropine 0.5 mg ORAL tablet Take 0.5 mg by mouth once daily.Active divalproex ER 500 mg ORAL 24 hr tablet Take 500 mg by mouth once daily.Active alendronate 35 mg ORAL tablet Take 35 mg by mouth once each week.Active CALCIUM POLYCARBOPHIL (FIBER-LAX ORAL) Take 1 capsule by mouth daily at bedtime.01/24/2014ctive Ferrous Sulfate 325 mg (65 mg iron) ORAL tablet Take 325 mg by mouth once daily.Active leveTIRAcetam 500 mg ORAL tablet Take 500 mg by mouth twice daily.Active loratadine 10 mg ORAL tablet Take 10 mg by mouth once daily.Active pregabalin (LYRICA) 75 mg ORAL capsule Take 75 mg by mouth three times daily.Active lamotrigine 100 mg ORAL tablet Take 100 mg by mouth twice daily.Active famotidine 20 mg ORAL tablet Take 20 mg by mouth once daily.Active naltrexone 50 mg ORAL tablet Take 100 mg by mouth twice daily.Active SENNOSIDES (SENNA-GEN ORAL) Take 2 tablets by mouth daily at bedtime. 2 tabs by mouth at dpftvns5901/24/2014 Active montelukast (SINGULAIR) 10 mg ORAL tablet Take 10 mg by mouth once daily.Active levothyroxine 50 mcg ORAL tablet Take 50 mcg by mouth once daily.Active Cholecalciferol, Vitamin D3, (VITAMIN D) 1,000 unit ORAL Cap Take 1,000 Units by mouth once daily.Active docusate sodium 100 mg ORAL capsule Take 200 mg by mouth three times daily.01/24/2014ctive acetaminophen 325 mg ORAL tablet Take 650 mg by mouth every 6 hours as needed.Active bisacodyl 10 mg RECTAL Supp 10 mg by RECTAL route once daily as needed.Active risperiDONE 1 mg tablet Take 1-1.5 mg by mouth three times daily. TAKE 1 MG TABLET AM, 1.5 MG TABLET AT NOON AND AT BEDTIME.Active divalproex DR 125 mg EC tablet Take 125 mg by mouth once daily.Active clonazePAM orally disintegrating 0.5 mg disintegrating tablet Take 0.25 mg by mouth twice daily as needed.Active CALCIUM CARBONATE/VITAMIN D3 (OYSTER SHELL + D3 ORAL) Take 1 tablet by mouth once daily.Active QUEtiapine 25 mg tablet Take 12.5 mg by mouth once daily.Active GUAIFENESIN/PSEUDOEPHEDRNE HCL (MUCINEX D ORAL) Take 1-2 tablets by mouth every 12 hours as needed.Active oxyCODONE immediate release (PERCOLONE) 5 mg immediate release tablet Take 1 tablet by mouth every 6 hours as needed. FOR PAIN. 30 tablet ctive diazepam (VALIUM) 5 mg tablet Take 0.5 tablets by mouth every 6 hours as needed. 30 tablet ctive fluticasone-sod chl-sod bicarb 50 mcg- 0.9 % ksps Use in the nose twice daily as needed.Active cholecalciferol (VITAMIN D) 1,000 unit tab tablet Take 1,000 Units by mouth once daily.Active clonazePAM (KLONOPIN) 0.5 mg tablet Active CALCIUM CARBONATE (OYSTER SHELL CALCIUM 500 ORAL) Take 500 mg by mouth once daily.Active Active Problems ProblemNoted DateDiagnosed DateCerebral palsy06/26/2015Crouched gait12/09/2010 Hamstring kwvmczxli39/25/2011Follow-up examination following rxgpfdx5710/04/2002 Other specified infantile cerebral palsy06/17/2002 Family History Medical HistoryRelationCommentshydrocephalus [Other]OtherRelationStatusComments Other Social History Tobacco UseTypesPacks/DayYears UsedDateSmoking Tobacco: NeverSmokeless Tobacco: NeverAlcohol UseStandard Drinks/WeekCommentsNo0 (1 standard drink = 0.6 oz pure alcohol)Area Deprivation IndexAnswerDate RecordedNational Score (1-100), lower number is lower riskNot on file04/23/2020State Score (1-10), lower number is lower riskNot on file04/23/2020Data from: https://www.neighborhoodatlas.medicine.[facility]/. Last address used for calculationNot on file04/23/2020CommentsNoSex and Gender Information ValueDate RecordedSex Assigned at BirthNot on fileLegal BiwZhkqbo43/02/2012 8:59 AM ESTGender IdentityNot on fileSexual OrientationNot on fileOccupationIndustry Job Start DateJob End DateworkshopNot on fileNot on fileNot on file Last Filed Vital Signs Vital SignReadingTime TakenCommentsBlood Oejaaehh823/7209 1:45 PM EDT Qfkwp433602/09/2014 1:45 PM ZCNIbjnvhxrdni67 ??C (96.8 ??F)02/09/2014 1:45 PM EDT Respiratory Beeh3415 1:45 PM EDTOxygen Yksekbbmva56%02/09/2014 1:45 PM EDTInhaled Oxygen Concentration--Dkpbht02.8 kg (158 lb 4.6 oz)02/09/2014 8:12 AM PXMEhsbrs213.4 cm (5')02/09/2014 8:12 AM EDTBody Mass Index30.9102/09/2014 8:12 AM EDT Plan of Treatment Health MaintenanceDue DateLast DoneCommentsAnxiety Rsaiotijs15/20/2004Depression Mqroreyig58/20/2004HIV Imofxdqjs97/20/2004Hepatitis C Mepvldaxe33/20/2004 Hepatitis B Vaccine (1 of 3 - 19+ 3-dose series)2004Cervical Cancer Pjazvrzwr77/20/2007HPV Vaccine (1 - 3-dose SCDM series)2012DTaP,Tdap,Td Vaccine (7 - Td or Tdap), 09/02/2000, 07/29/1990, Additional history existsCovid-19 Vaccine (2024- season)2025Influenza Vaccine (#1), 03/11/2017, 02/20/2016, Additional history exists Insurance [address] [place] [address] Advance Directives TypeDate RecordedPatient RepresentativeExplanationAdvance Directive(s)01/24/2014 2:15 PM Care Teams Team MemberRelationshipSpecialtyStart DateEnd Date Chaim Restrepo DO [address] [place] [phone] PCP - GeneralFamily Medicine05/21/23
--- OUTSIDE RECORDS SUMMARY | 2025-03-29 07:13 | XMS_ITS | CCD ---
Author Organization [facility] Care Team Providers Care Psychiatric Security Nurse Name Role Phone Rm Goldman DDS Unavailable Mony Babin Unavailable KHRIS, DR STEF Whaley Consulting Unavailable ARGUETA, DR STEF Whaley Primary Care Unavailable ARGUETA, DR STEF Whaley Admitting Unavailable ARGUETA, DR STEF Whaley Attending Unavailable ARGUETA, DR TSEF Whaley Consulting Unavailable ARGUETA, DR STEF Whaley [...] Whaley Attending Unavailable ARGUETASTEF Primary Care Physician [phone] Mocarlyleli, Mohamad A. Admitting Unavailable Mouchli, Mohamad [...] MD Unavailable Suzi Bates DO Unavailable Oseas ATWOOD, Amy Unavailable Oseas BORING MILL SET UP OPERATOR VERTICAL, Amy Unavailable AMY FAROOQ Attending Unavailable AMY FAROOQ Attending Unavailable AMY FAROOQ Attending Unavailable Pretty NAQVI MD, Justin Unavailable [phone] CLEMOW, MOO Admitting Unavailable CLEMOAlexia, MOO Attending Unavailable PROVIDER, UNKNOWN Admitting Unavailable RADHA EVANS Attending Unavailable PROVIDER, UNKNOWN Admitting Unavailable CLEMOWMOO Attending Unavailable CLEMOMOO Hale Attending Unavailable PROVIDER, UNKNOWN Admitting Unavailable CLEMOMOO Hale Referring Unavailable PROVIDER, UNKNOWN Admitting Unavailable PROVIDER, UNKNOWN Attending Unavailable Allergies Allergy ClassificationReported Allergen(s)Allergy TypeDate of OnsetReaction(s) Facility (1 source)No Known Medication Allergies; Translations: [No Known Medication Allergies]Propensity to adverse reactions (disorder)[facility] (20 sources)Diazepam; Translations: [DIAZEPAM]Propensity to adverse reactions to oizc69-37-3346SiykxLusbxr (20 sources)diphenhydrAMINE; Translations: [DIPHENHYDRAMINE]Drug Allergy 89-50-5323VvmmcLmjtgs (20 sources)trichloroacetaldehyde; Translations: [CHLORAL HYDRATE]Drug Allergy 82-25-3820DxnyyXemqqc (20 sources)Octacosanol; Translations: [OCTACOSANOL]Drug Wumtmpfsfft63-75-4482 UnknownN[facility] Medications Current Medications MedicationDrug Class(es)DatesSig (Normalized)Sig (Original)acetaminophen 500 mg oral tablet (12 sources)Start: 72-19-8410ufkd 1 tablet by mouth every four hours as needed for painacetaminophen (TYLENOL) 500 MG tablet Take 1 Tablet by mouth every 4 hours as needed for Pain or Fever. 30 Tablet 01/18/2025 ActiveStart: 01-18-2025 End: 26-64-3877812 mg, Oral, ONCE PRN, Starting on Thu01/18/25 at 1125, Until Thu01/18/25 at 1724, Mild Pain (pain score 1,2,3), PACU Nowacetaminophen (Tylenol) 325 MG tablet Activealendronic acid 35 mg oral tablet (17 sources)Bisphosphonate End: 22-23-4855wwyj 1 tablet by mouth every week in the morningalendronate (Fosamax) 35 MG tablet Take 1 tablet by mouth 1 (one) time per week In the morning, at least 30 min before first food, beverage, or medication of day Activebisacodyl 10 mg rectal suppository (9 sources)Stimulant Laxativebisacodyl (Dulcolax) 10 MG suppository Activetake 10 mg rectal route once daily as neededbisacodyl (Dulcolax) 10 MG suppository 10 mg by RECTAL route once daily as needed. ActivebusPIRone hydrochloride 15 mg oral tablet (15 sources) End: 60-01-1959iurXMJqyk (Buspar) 15 MG tablet Activecabergoline 0.5 mg oral tablet (15 sources)Ergot Derivative End: 74-89-6907dohotisttzf (Dostinex) 0.5 MG tablet ActiveCalcium Carbonate (20 sources)Start: 89-22-8675Vijgtv Antacid Barrier mg, Chewed, Daily, Refills(s) 0 Start Date: 09/10/23 Status: OrderedOyster Shell 500 MG TABS Take by mouth. Activecalcium carbonate 1250 mg / cholecalciferol 200 unt oral tablet (20 sources)Vitamin DStart: 20-37-4994Enktixu Carb-Cholecalciferol (Oyster Shell Calcium w/D) 500-5 MG-MCG TABS 12/07/2023 ActivecarBAMazepine (20 sources)Mood StabilizerStart: 08-03-9220CJFUDLKVVEUKG ORAL Take by mouth. 09/10/2023 SuspendedStart: 98-11-6515YIFVOQSQABSAX ORAL Take by mouth. 09/10/2023 ActiveStart: 25-87-4571gtsnhcvxpyotb Oral, TID, Refills(s) 0, Seizure Start Date: 09/10/23 Status: OrderedStart: 02-13-5839tfhyxpdtxwyhc Refills(s) 0 Start Date: 09/10/23 Status: OrderedcarBAMazepine (TEGretol) 200 MG tablet Active End: 92-97-3092hlbORDscjdogx (TEGretol) 200 MG tablet Take 100 mg by mouth 3 times daily. Activecariprazine 6 mg oral capsule (20 sources)Atypical AntipsychoticStart: 35-06-5632Pfxingmyrcu HCl (Vraylar) 6 MG CAPS capsule 10/22/2023 Activechlorhexidine gluconate 1.2 mg/ml mouthwash (20 sources)Start: 85-72-8735jlow 15 mL by mouth twice dailychlorhexidine (Peridex) 0.12 % oral solution Take 15 mL by mouth 2 times daily. 480 mL 1 01/18/2025tiveStart: 01-08-2024 End: 38-38-6601ktsh 15 mL by mouth twice dailychlorhexidine (Peridex) 0.12 % oral solution Swish mouth with 15 mL by mouth 2 times daily. DO NOT SWALLOW 473 mL 3 01/08/2024 ActiveStart: 82-02-8420axgl 0.018 g by mouth twice daily chlorhexidine 0.12% mucous membrane liquid 0.018 gm, 15 mL, Oral, BID, 480 mL, Refill(s) 0 Start Date: 09/10/23 Status: Orderedchlorhexidine (Peridex) 0.12 % solution Activecholecalciferol 0.025 mg oral capsule (20 sources)Vitamin DStart: 55-61-4604A1-1000 25 MCG (1000 UT) CAPS capsule 07/07/2024 Active End: 49-38-7632Imhjsykhaxxmoij (VITAMIN D) 1000 units TABS Take by mouth. 07/13/2024 DiscontinuedclonazePAM 0.5 mg oral tablet (15 sources)Benzodiazepine End: 04-92-2812xqxsyvtTTQ (KlonoPIN) 0.5 MG tablet ActivecloNIDine hydrochloride 0.1 mg oral tablet (20 sources)Central alpha-2 Adrenergic Agonisttake 1 tablet by mouth twice daily cloNIDine (CATAPRES) 0.1 MG tablet Take 0.1 mg by mouth 2 times daily. Active cyproheptadine hydrochloride 4 mg oral tablet (15 sources)take 1 tablet by mouth at bedtimecyproheptadine (PERIACTIN) 4 MG tablet Take 4 mg by mouth at bedtime. Zflmhh14 hr dextromethorphan hydrobromide 30 mg / guaiFENesin 600 mg extended release oral tablet (20 sources)Uncompetitive W-hsywyc-R-aspartate Receptor Antagonist, Sigma-1 AgonistStart: 22-82-2102qlcykzabvlf-dextromethorphan (MUCINEX DM) 30-600 MG tablet 07/28/2023 ActiveStart: 11-85-9466Sgvjnjyvwcfbilod-guaiFENesin (Mucus Relief DM) 30-600 MG tablet sustained-release 12 hour 07/28/2023 Activedoxazosin 4 mg oral tablet (15 sources)alpha-Adrenergic Gaby End: 68-86-8171kxytnbtea (Cardura) 4 MG tablet Activefamotidine 20 mg oral tablet (20 sources)Histamine-2 Receptor AntagonistStart: 83-04-9456laib 20 mg by mouth once dailyPepcid 20 mg, Oral, Daily, Refills(s) 0, Control of stomach acid Start Date: 09/10/23 Status: OrderedStart: 13-31-2284Snrxgn Refills(s) 0 Start Date: 09/10/23 Status: OrderedStart: 97-15-9305tjqcekefqf Refills(s) 0 Start Date: 11/29/09 Status: Orderedferrous sulfate (13 sources)Start: 07-77-5375icknpft sulfate Oral, Refills(s) 0 Start Date: 11/29/09 Status: Ordered End: 50-82-4568ztgw 1 tablet by mouth once dailyferrous sulfate 325 (65 Fe) MG tablet Take 325 mg by mouth daily. 01/08/2024 Discontinued (Discontinued by another Health Care Provider)Fiber (5 sources)Start: 59-71-2139Hmqga Lax Oral, Refills(s) 0 Start Date: 11/29/09 Status: OrderedStart: 01-72-6913Bjymy Lax Refills(s) 0 Start Date: 11/29/09 Status: Ordered1 ml HYDROmorphone hydrochloride 1 mg/ml cartridge (2 sources)Opioid AgonistStart: 01-18-2025 End: .2 mg, Intravenous, PACU EVERY 15 MIN PRN X 4 DOSES, 4 doses, Starting on Thu01/18/25 at 1125, Until Thu01/18/25 at 2359, Moderate Pain (pain score 4,5,6), PACU NowStart: 01-18-2025 End: 50.5 mg, Intravenous, PACU EVERY 15 MIN PRN X 4 DOSES, 4 doses, Starting on Thu01/18/25 at 1125, Until Thu01/18/25 at 2359, Severe Pain (pain score 7,8,9,10), PACU Nowibuprofen 600 mg oral tablet (2 sources)Nonsteroidal Anti-inflammatory DrugStart: 18-38-1226tfky 1 tablet by mouth every six hours as needed for painibuprofen (MOTRIN) 600 MG tablet Take 1 Tablet by mouth every 6 hours as needed for Pain. 30 Tablet1 01/18/2025 Active lamoTRIgine 100 mg oral tablet (17 sources)Mood Stabilizer, Anti-epileptic Agent End: 43-02-7875cudxIAJdmqc (LaMICtal) 100 MG tablet ActiveLevetiracetam (20 sources)Start: 75-89-2893eehyzxthbdezr Refills(s) 0 Start Date: 09/10/23 Status: OrderedStart: 96-31-9029rleviypokewvi Oral, BID, Refills(s) 0, Seizure Start Date: 11/29/09 Status: OrderedStart: 25-20-3273pzzpmesswikhl Refills(s) 0 Start Date: 11/29/09 Status: Orderedtake 1 tablet by mouth twice daily levETIRAcetam (KEPPRA) 500 MG tablet Take 500 mg by mouth 2 times daily. Active levothyroxine sodium 0.075 mg oral tablet (20 sources)l-Thyroxinetake 1 tablet by mouth once daily in the evening levothyroxine (SYNTHROID) 75 MCG tablet Take 75 mcg by mouth daily. Take at 4 pm Active End: 78-14-8558zcgcssaqgkyof (Synthroid, Levoxyl) 112 MCG tablet Active linaclotide 0.29 mg oral capsule (20 sources)Guanylate Cyclase-C AgonistStart: 74-29-7169rbkt 1 capsule by mouth once dailyLinzess 290 MCG CAPS capsule Take 290 mcg by mouth daily. 06/27/2024 ActiveStart: 31-00-9352cgsu 1 ug by mouth once dailyLinzess 290 mcg oral capsule mcg cap(s), Oral, Daily, Refills(s) 0 Start Date: 09/10/23 Status: OrderedStart: 10-17-2020 End: 86-83-0394gtrd 1 capsule by mouth once dailyLinzess 145 MCG CAPS capsule Take 145 mcg by mouth daily. 10/17/2020 07/13/2024 DiscontinuedLoratadine (20 sources)Start: 88-68-1525dlbcasmqlk 10 mg, Refills(s) 0 Start Date: 11/29/09 Status: Orderedtake 1 tablet by mouth once dailyloratadine (CLARITIN) 10 MG tablet Take 10 mg by mouth daily. Activelurasidone hydrochloride 80 mg oral tablet (20 sources)Atypical AntipsychoticStart: 73-03-8645elcxugtown (LATUDA) 80 MG tablet Take 1 Tablet by mouth. 12/07/2023 ActiveStart: 88-88-3366ftkzwknwhh Oral, Daily, Refills(s) 0 Start Date: 09/10/23 Status: Ordered End: 27-84-3974yjgp 1 tablet by mouth twice dailylurasidone (LATUDA) 40 MG tablet Take 40 mg by mouth 2 times a day. 07/13/2024 Discontinued1 ml medroxyPROGESTERone acetate 150 mg/ml injection (20 sources)ProgestinmedroxyPROGESTERone (Depo-Provera) 150 MG/ML injection Inject 150 mg into the muscle once. ActivemedroxyPROGESTERone (Depo-Provera) 150 MG/ML injection ActivemedroxyPROGESTERone (Depo-Provera) 150 MG/ML injection Inject 150 mg into the muscle once. Active1 ml meperidine hydrochloride 25 mg/ml cartridge (1 source)Opioid AgonistStart: 01-18-2025 End: mg, Intravenous, PACU EVERY 15 MIN PRN X 2 DOSES, Starting on Thu01/18/25 at 1125, Until Thu01/18/25 at 1724, Shivering, PACU Nowmetoprolol tartrate 100 mg oral tablet (15 sources)beta-Adrenergic Gaby End: 85-25-9584xjrxmfmqvd tartrate (Lopressor) 100 MG tablet Activemontelukast (20 sources)Leukotriene Receptor AntagonistStart: 51-76-1426zrzqnzyudnu Daily, Refills(s) 0 Start Date: 09/10/23 Status: Orderedtake 1 tablet by mouth once dailymontelukast (SINGULAIR) 10 MG tablet Take 10 mg by mouth daily. Active Naltrexone (20 sources)Opioid AntagonistStart: 68-98-2346nibbvrumld Refills(s) 0 Start Date: 11/29/09 Status: Orderedtake 2 tablets by mouth twice dailynaltrexone 50 MG tablet Indications: take 2 tablets twice a day Take 50 mg by mouth daily Indications: take 2 tablets twice a day. Activenaltrexone (Depade) 50 MG tablet Active2 ml ondansetron 2 mg/ml injection (20 sources)Serotonin-3 Receptor AntagonistStart: 01-18-2025 End: 21-64-0859tdie 4 mg intravenously once as needed for nausea4 mg, Intravenous, PACU ONCE PRN, Starting on Thu01/18/25 at 1125, Until Thu01/18/25 at 1724, Nausea,Vomiting, PACU NowStart: 01-08-2024 End: 52-93-9259dpqw 4 mg intravenously once as needed for nausea4 mg, Intravenous Push, PACU ONCE PRN, Starting on Thu01/08/24 at 1128, Until Thu01/08/24 at 1727, Nausea, Vomiting, PACU NowStart: 88-32-8829Mrxjrp Refills(s) 0 Start Date: 09/10/23 Status: Orderedtake 1 tablet by mouth every twelve hours as needed for nauseaondansetron (Zofran) 4 MG tablet Take 4 mg by mouth every 12 hours as needed for Nausea. ActiveoxyCODONE hydrochloride 5 mg oral tablet (1 source)Opioid AgonistStart: 48-15-024712 mg, Oral, PRN, 1 dose, Starting on Thu01/18/25 at 1125, Until Discontinued, Moderate Pain (pain score 4,5,6), PACU Now24 hr paliperidone 3 mg extended release oral tablet (15 sources)Atypical Antipsychoticpaliperidone (Invega) 3 MG 24 hr tablet Active take 1 tablet by mouth once dailypaliperidone (Invega) 3 MG 24 hr tablet Take 6 mg by mouth daily. Active End: 29-20-9746bbhn 2 tablets by mouth once dailypaliperidone (INVEGA) 3 MG 24 hour tablet Take 6 mg by mouth daily. 01/08/2024 Discontinued (Discontinued by another Health Care Provider)pantoprazole 40 mg delayed release oral tablet (20 sources)Proton Pump InhibitorStart: 64-04-9839uwfyvxfgaesf (PROTONIX) 40 MG tablet 12/07/2023 ActiveStart: 94-89-9389vyiszezzmhjs 40 mg, Oral, Refills(s) 0, Control of stomach acid Start Date: 09/10/23 Status: OrderedStart: 09-10-2023 pantoprazole Refills(s) 0 Start Date: 09/10/23 Status: Ordered End: 19-33-4010yglz 40 mg by mouth once dailypantoprazole (Protonix) 40 MG PACK oral packet Take 40 mg by mouth daily. 07/13/2024 Discontinuedpregabalin (20 sources)Start: 19-49-2209aaqlipximw Oral, TID, Refills(s) 0, Neuropathy Start Date: 09/10/23 Status: OrderedStart: 24-11-5016jkrriqikjj Oral, Refills(s) 0 Start Date: 09/10/23 Status: Orderedtake 1 capsule by mouth three times daily pregabalin (LYRICA) 75 MG capsule Take 75 mg by mouth 3 times daily. Active Promethazine (20 sources)PhenothiazineStart: 95-53-3873Rumsjkvybkwb HCl (PHENERGAN INJ) Take by mouth. 09/10/2023 SuspendedStart: 57-40-3121Xqhboskaekpq HCl (PHENERGAN INJ) Take by mouth. 09/10/2023 ActiveStart: 78-34-0804Iszkglhqo Oral, PRN as needed for nausea/vomiting, Refills(s) 0 Start Date: 09/10/23 Status: OrderedStart: 95-96-0714Gqafnbdct Refills(s) 0 Start Date: 09/10/23 Status: OrderedrisperiDONE 3 mg oral tablet (20 sources)Atypical AntipsychoticStart: 67-49-1500solczerSRWX (RISPERDAL) 3 MG tablet 07/07/2024 ActiveStart: 14-48-4759twvfiagzkfe Oral, BID, Refills(s) 0 Start Date: 11/29/09 Status: OrderedStart: 94-33-5834gwfeujfeqeq BID, Refills(s) 0 Start Date: 11/29/09 Status: Ordered End: 82-56-5506rjkr 1 tablet by mouth twice daily at bedtimerisperiDONE (RISPERDAL) 0.5 MG tablet Indications: take one tablet by mouth twice a day at bedtime Take 0.5 mg by mouth 2 times daily Indications: take one tablet by mouth twice a day at bedtime. 1 tab noon and 1 tab hs 01/08/2024 Discontinued (Discontinued by another Health Care Provider) End: 75-34-0051tqlm 1 tablet by mouth three times dailyrisperiDONE (RISPERDAL) 1 MG tablet Indications: take one tablet by mouth 3 times daily Take 1 mg by mouth 2 times daily Indications: take one tablet by mouth 3 times daily. 01/08/2024 Discontinued (Discontinued by another Health Care Provider) sennosides, [facility] (20 sources)Start: 64-20-6878kffgn Oral, BID, Refills(s) 0, Constipation Start Date: 09/10/23 Status: OrderedStart: 04-06-1224sqszm Refills(s) 0 Start Date: 09/10/23 Status: Orderedtake 1 tablet by mouth once dailysenna (SENNA-TABS) 8.6 MG TABS tablet Indications: daily at 0800 and 2000 Take 1 Tablet by mouth Ind ications: daily at 0800 and 1999. Activesertraline 100 mg oral tablet (15 sources)Serotonin Reuptake Inhibitor End: 45-99-0377cubisorfbw (Zoloft) 100 MG tablet ActivetraZODone hydrochloride 100 mg oral tablet (15 sources)Serotonin Reuptake Inhibitor End: 69-13-5508zzzDXTkff (Desyrel) 100 MG tablet Czvztr62 hr divalproex sodium 250 mg extended release oral tablet (20 sources)Mood Stabilizer, Anti-epileptic AgentStart: 57-04-6901ujsoffxsyi ER (DEPAKOTE ER) 250 MG ER tablet at bedtime. 07/07/2024 ActiveStart: 07-07-2024 divalproex ER (DEPAKOTE ER) 500 MG ER tablet 07/07/2024 ActiveStart: 11-29-2009 Depakote Oral, BID, Refills(s) 0, Seizure Start Date: 11/29/09 Status: Ordered Start: 12-32-5581Zvjvibjx Oral, TID, Refills(s) 0 Start Date: 11/29/09 Status: Ordered End: 28-46-0281janr 2 capsules by mouth once daily in the morningdivalproex (DEPAKOTE SPRINKLE) 125 MG CSDR capsule Indications: take 2 capsules by mouth every morning Take 125 mg by mouth Indications: take 2 capsules by mouth every morning. Active End: 41-15-2020wkta 2 tablets by mouth twice daily at bedtimedivalproex (DEPAKOTE) 500 MG enteric coated tablet Indications: take one tablet in the morning and 2 tablets at bedtime Take 500 mg by mouth 2 times daily Indications: take one tablet in the morning and 2 tablets at bedtime. 1 tab am and 2 tab hs ActiveVITAMIN D ORAL (20 sources)take 1000 [IU] by mouth once dailyVITAMIN D ORAL Take 1,000 Units by mouth daily. Suspendedtake 1000 [IU] by mouth once dailyVITAMIN D ORAL Take 1,000 Units by mouth daily. Activetake 1000 [IU] by mouth once dailyVITAMIN D ORAL Take 1,000 Units by mouth daily. 0 ActiveVitamin D3 (3 sources)Start: 46-99-3739Mfqchim D3 Oral, Daily, Refills(s) 0, Prophylaxis Start Date: 09/10/23 Status: OrderedStart: 33-74-6436Vcjmvtb D3 Refills(s) 0 Start Date: 09/10/23 Status: Ordered Completed/Discontinued Medications MedicationDrug Class(es)DatesSig (Normalized)Sig (Original)calcium chloride 0.0014 meq/ml / potassium chloride 0.004 meq/ml / sodium chloride 0.103 meq/ml / sodium lactate 0.028 meq/ml injectable solution (3 sources)Start: 17-99-8544Jrqbynxigbp, at 75 mL/hr, CONTINUOUS, Starting on Thu01/18/25 at 1230, Until DiscontinuedStart: 45-11-3952Prlfizefaac, at 125 mL/hr, CONTINUOUS, Starting on Thu01/08/24 at 1200, Until Discontinuedcalcium polycarbophil (8 sources) End: 35-66-5741utuj 20 [oz_av] by mouth once daily at bedtimeCalcium Polycarbophil (FIBER-LAX ORAL) Indications: daily at bedtime with 20 oz of water Take by mouth Indications: daily at bedtime with 20 oz of water. 01/08/2024 Discontinued (Discontinued by another Health Care Provider)take 20 [oz_av] by mouth once daily at bedtimeCalcium Polycarbophil (FIBER-LAX ORAL) Indications: daily at bedtime with 20 oz of water Take by mouth Indications: daily at bedtime with 20 oz of water. Activetake 20 [oz_av] by mouth once daily at bedtime Calcium Polycarbophil (FIBER-LAX ORAL) Indications: daily at bedtime with 20 oz of water Take by mouth Indications: daily at bedtime with 20 oz of water. 0 ActivechlorproMAZINE hydrochloride 50 mg oral tablet (6 sources)Phenothiazine End: 45-23-6725iqna 50 mg by mouth at bedtimeCHLORPROMAZINE HCL ORAL Take 50 mg by mouth at bedtime. 01/08/2024 Discontinued (Discontinued by another Health Care Provider)docusate sodium 100 mg oral capsule (8 sources) End: 57-73-2420mslu 2 capsules by mouth three times dailydocusate sodium (COLACE) 100 MG capsule Indications: take 2 capsules by mouth 3 times daily Take 100 mg by mouth Indications: take 2 capsules by mouth 3 times daily. 01/08/2024 Discontinued (Discontinued by another Health Care Provider)guanFACINE 1 mg oral tablet (6 sources)Central alpha-2 Adrenergic Agonist End: 84-09-4500ijgg 1 tablet by mouth at bedtimeguanfacine (TENEX) 1 MG tablet Take 1 mg by mouth at bedtime. 01/08/2024 Discontinued (Discontinuedby another Health Care Provider)iloperidone 2 mg oral tablet (6 sources)Atypical Antipsychotic End: 45-92-4275Bilkhkjvjqd (Fanapt) 2 MG TABS Take by mouth. 01/08/2024 Discontinued (Discontinued by another Health Care Provider)midazolam 2 mg/ml oral solution (1 source)BenzodiazepineStart: 01-08-2024 End: dose, Starting on Thu01/08/24 at 1333, Until Thu01/08/24 at 30923 ml naloxone hydrochloride 0.4 mg/ml injection (2 sources)Opioid AntagonistStart: .4 mg, Intravenous, PRN, Starting on Thu01/18/25 at 1125, Until Discontinued, Respiratory Rate LessThan 8 for adults and less than 12 for Peds or for suspected overdose, PACU NowStart: .4 mg, Intravenous Push, PRN, Starting on Thu01/08/24 at 1128, Until Discontinued, Respiratory Rate Less Than 8 for adults and less than 12 for Peds or for suspected overdose, PACU Now20 ml sodium chloride 9 mg/ml injection (2 sources)Start: mL, Intravenous, PRN, Starting on Thu01/18/25 at 1125, Until Discontinued, For medication administration and blood draw, PACU Now Start: mL, Intravenous Push, PRN, Starting on Thu01/08/24 at 1128, Until Discontinued, For medication administration and blood draw, PACU Now Problems Active Problems Problem ClassificationProblemDateDocumented DateEpisodic/ChronicAttention- deficit, conduct, and disruptive behavior disorders (20 sources)Disruptive behavior disorder; Translations: [Conduct disorder, unspecified]Onset: 061934-06-6483YponfrxLnicnoqpq-gaxbavf, conduct, and disruptive behavior disorders (13 sources)Conduct disorder; Translations: [Other conduct disorders]Onset: 346239-30-4921KyvvahpIcyumyv tract disease (5 sources)Biliary xxlakbwo18-53-1425EnuicsybAvuqchfpcbzdh disorders (20 sources)Severe intellectual disability; Translations: [Intellectual disability]Onset: 690801-89-8095StxznnxLodxhdnbe of teeth and jaw (20 sources)Dental caries; Translations: [Dental caries, unspecified]Onset: 786554-19-0722IqlggyxlJpvwpsegs usually diagnosed in infancy, childhood, or adolescence (20 sources)Autism spectrum disorder; Translations: [Autistic disorder]Onset: 520485-49-6930AhjxkeeNvwjwrxn; convulsions (20 sources)Epilepsy, unspecified, not intractable, without status epilepticus; Translations: [Seizure disorder]Onset: 89-85-4607CtxqjacYzivfnbt; convulsions (5 sources)Seizure -68-5199HcjjidojYddzzre control disorders, NEC (20 sources)Impulse control disorder; Translations: [Impulse disorder, unspecified]Onset: 126357-39-4234XryiuqxKvrr disorders (20 sources)Bipolar disorder, unspecified; Translations: [Bipolar disorder] Onset: 052708-40-7478VsbusprYwobpg and vomiting (1 source)Nausea and vomiting; Translations: [Nausea with vomiting, unspecified] Onset: 34-46-1050ZyghxbqcOkij wounds of extremities (4 sources)Unspecified open wound, left foot, initial encounter; Translations: [UNS OPEN WOUND LEFT FOOT INITIAL]Onset: 62-02-7021XfvvhykgAzkcqaglynpv (20 sources)Osteoporosis; Translations: [Age-related osteoporosis without current pathological fracture]Onset: 660421-70-8814JwrvvqpEnmkk aftercare (5 sources)Other half-way (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; Translations: [OTH SNF CURRENT DRUG THERAPY]Onset: 63-14-7718YxbsufjuUnhey gastrointestinal disorders (5 sources)Tbwjpgfkhwtc86-70-2055RphlpeqzZcfnm gastrointestinal disorders (1 source)Other constipation; Translations: [Other constipation]Onset: 49-51-1037VprcvhsgXkfli nutritional; endocrine; and metabolic disorders (4 sources)Body mass index 30+ - obesity; Translations: [Body mass index (BMI) 31.0-31.9, adult]85-50-7162GngicsqVvguk nutritional; endocrine; and metabolic disorders (1 source)Body mass index (BMI) 31.0-31.9, adult; Translations: [Body mass index (BMI) 31.0-31.9, adult]Onset: 52-74-6253OdjnrhiGnbeh nutritional; endocrine; and metabolic disorders (1 source)Abnormal weight loss; Translations: [Abnormal weight loss]Onset: 20-02-1815SiqauhohQnqvi upper respiratory disease (5 sources)Seasonal -52-7509JxjjftuIskfhmkhx (20 sources)Spastic cerebral palsy; 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]Onset: 197210-05-6272OsrzipiAhawiulb codes; unclassified (1 source)Early satiety; Translations: [Early satiety]Onset: 80-57-0506Jgupptla Thyroid disorders (18 sources)Hypothyroidism, unspecified; Translations: [Hypothyroidism]Onset: 658662-71-3967WckuaxdVsskbpnbywot (5 sources)Bipolar (qualifier value)08-26-2010 Past or Other Problems Problem ClassificationProblemDateDocumented DateEpisodic/ChronicE Codes: Adverse effects of medical drugs (9 sources)Sequela of disorder; Translations: [Adverse effect of unspecified drugs, medicaments and biologicalsubstances, sequela]Onset: EpisodicOther aftercare (20 sources)Surgical follow-up; Translations: [Encounter for follow-up examination after completed treatment for conditions other than malignant neoplasm]Onset: 263966-03-6067RvifrcfqHzymo connective tissue disease (20 sources)Finding of thigh; Translations: [Other specified disorders of muscle]Onset: 780514-18-0618LexseljmSundd nervous system disorders (20 sources)[place] gait; Translations: [Other abnormalities of gait and mobility]Onset: 120960-52-7925BmerxtfdFrmhl nutritional; endocrine; and metabolic disorders (20 sources)Loss of appetite; Translations: [Anorexia]Onset: 03-16-2008 21-49-4285RsasqkrcQfouq nutritional; endocrine; and metabolic disorders (8 sources)Weight loss; Translations: [Abnormal weight loss]Onset: 03-16-2008 66-13-8232UhhmhgphOhtay nutritional; endocrine; and metabolic disorders (3 sources)Weight decreased; Translations: [Abnormal weight loss]Onset: [id number] screening for suspected conditions (not mental disorders or infectious disease) (2 sources)Electrocardiogram abnormal; Translations: [Abnormal electrocardiogram [ECG] [EKG]]77-67-6132Rlvxizhb Results Test NameValueInterpretationReference RangeFacilityProgress Noteson 01-25-2025 Driller [employer]acher Authentication Interface Message TextORAL SURGERY CLINIC FOLLOW UP VISIT Chief Complaint: Pt was contacted via telephone for follow up. History of present illness: 39 yrs old White female 1 week s/p extraction of #12, 13, 14 Patient's fci and patient's mother was contacted separately. Voicemail left with call back number since the call was not answered. Plan: - Reaching out to patient's fci/ mother for evaluating patient's post-op [facility] SystemAnesthesia Postprocedure Evaluationon 61-55-5892Sdvqkumzrseky Authentication Interface Message TextAnesthesia Postoperative Assessment: Vital Signs (most recent): BP [...] acceptable ANESTHESIA NOTABLE EVENTS: No notable events documented.NormalThe Navetas Energy Management SystemAnesthesia Preprocedure Evaluationon 93-76-9305Ctgqhgsdoplzi Authentication Interface Message TextASA: 3 No history of anesthetic complications NPO [...] Epilepsy, unspecified, not intractable, without status epilepticus ([facility]) [G40.909] Bipolar 1 disorder ([facility]) [F31.9] 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 [...] discussed with the patient and/or legal sales support representative. The risks, benefits and alternatives were reviewed. Questions regarding anesthesia were answered. Patient and/or legal sales support representative knows such anesthetics and procedures may be performed by Resident physicians, Certified Anesthesiologist Assistants, or Certified Nurse Anesthetists under the supervision of a physician. The patient /or the patient's legal sales support representative agree with the plan for anesthesia. Comment: Anesthesia consent scanned into [employer]. [facility] HospitalAnesthesia Transfer Of Careon 01-18-2025 Driller [employer] Broacher Authentication Interface Message TextPatient taken to PACU. Patient was awake, comfortable, and stable on arrival. Anesthesia Transfer of Care Note Past Medical History: Medical History[1] Sleep Apnea/Positive STOP-BANG: No Problem List: Problem List[2] Past Surgical History: Review of patient's past surgical history indicates: CHOLECYSTECTOMY (2008) OSH H+P 01/25/19 DENTAL RESTORATIONS (02/11/2019) Procedure: DENTAL RESTORATIONS; Surgeon: Fernando Kurtz DDS; Location: [facility] Surgery Mode; Service: Dental DENTAL RESTORATIONS (11/05/2020) Procedure: DENTAL RESTORATIONS; Surgeon: Dru Friedman DDS; Location: [facility] Surgery Mode; Service: Dental DENTAL RESTORATIONS (01/08/2024) Procedure: DENTAL RESTORATIONS; Surgeon: Stacie Torres DMD; Location: [facility] Surgery Mode; Service: Dental Allergies: Benadryl [diphenhydramine], Chloral hydrate, Octacosanol, and Valium [diazepam] Basic Operating Room Facts: Surgeon(s): Moo Olsen DMD, MD Anesthesiologist: Ryan Kc MD CAA: [...] Autism spectrum disorder (HCC) 07/13/2024 Cerebral palsy ([facility]) Mild, OSH H+P 01/25/19 Cholelithiasis OSH H+P 01/25/19 Chronic constipation OSH H+P 01/25/19 Disruptive behavior disorder OSH H+P 01/25/19 Dyspepsia OSH H+P 01/25/19 Hypothyroid OSH H+P 01/25/19 Hypothyroidism, unspecified 09/22/2022 Impulse control disorder OSH H+P 01/25/19 Intermittent explosive disorder OSH H+P 01/25/19 Myopia OSH H+P 01/25/19 Osteopenia OSH H+P 01/25/19 Other bipolar disorder ([facility]) 10/08/2007 Pervasive developmental disorder (HCC) OSH H+P 01/25/19 Seasonal allergies OSH H+P 01/25/19 Seizure disorder ([facility]) OSH H+P 01/25/19 Severe intellectual disability OSH H+P 01/25/19 [2] Patient Active Problem List Diagnosis Code Cerebral palsy (HCC) G80.9 Dental caries K02.9 Dental decay K02.9 Hamstring tightness M62.89 Examination following surgery Z09 Crouched gait R26.89 Caries K02.9 Anorexia R63.0 Disruptive behavior disorder F91.9 Impulse control disorder F63.9 Osteoporosis M81.0 Other bipolar disorder ([facility]) F31.89 Autism spectrum disorder (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) G40.909 Hypothyroidism, unspecified E03.9 Epilepsy, unspecified, not intractable, without status epilepticus ([facility]) G40.909 Bipolar 1 disorder ([facility]) F31.9 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 K02.9[facility] SystemOP Note on 07-65-7597Zeaiovpmluryw Authentication Interface Message [facility] Division of python engineer OPERATIVE NOTE Name: Vee Sarabia MR#: [id number] ENC#: Data Unavailable Surgical Case #: Data Unavailable Date of Procedure: 01/18/2025 ? PREOPERATIVE DIAGNOSIS: 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 [[id number]] ? POSTOPERATIVE DIAGNOSIS: 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 [[id number]] OPERATION: Extraction of erupted teeth #12, 13, 14 ? ATTENDING SURGEON: Dr. Moo Olsen ? FIRST SURGEON: Dr. Moo Olsen ? SECOND SURGEON: Robin Roque ? ANESTHESIA: [...] transferred onto the operating room table under Show[employer] power. The patient was then placed in [...] entire procedure. There were no complications. Dr. Olsen was present for all critical parts of the procedure. ? ? ? Alfredo Mariee DDS [facility] PGY-3 I was personally present for the michelle portions of the procedure. Moo Olsen DMD, [facility]Mid[facility]ola[facility] SystemURINE HCG-IN OFFICEOrdered By: Billie Verma on 73-16-0921CEH ( test) Ql (U)NegativeNegative MetroHealthInterpretation and review of laboratory resultsNormalMetroHealth Negative Internal ControlNegativeNegativeMetroHealthPositive Internal Control PositivePositiveMetroHealthMetroHealthTelephone Encounteron 01-17-2025 Driller And Broacher Authentication Interface Message TextSpoke to Rosemary from [facility]. Aware of 11:30 time of arrival at [address]. NPO and medication instructions reviewed.NormalThe STinserroHealth SystemPAT Call Historyon 01-79-2027Ncoijcmjaezrb Authentication Interface Message TextTelephone History Vee Sarabia, [id number] 01/04/2025 39 year old 146 lbs 4' 10 Patient was identified by name and date of . [facility] home [place] RN [phone] fax [phone] Legal guardian Mom Gabriela Calloway [phone] *Not sure that patient will be able to provide urine sample the day of procedure intermittently continent, half-way turn around on Labs 72 hours Needs: [...] has had tegretol added 02/19/[address] eTrry Price. This was at a seizure prevention [...] or new symptoms. STOP-BANG Row Name 01/04/25 8092 History of sleep apnea? No Snoring No Tired/Fatigued No Observed Apnea No Pressure: Hypertension No BMI greater than 35 0 Age greater than 50 0 Gender male? 0 Score 0 EXERCISE CAPACITY: <4 mets WC ALLERGIES: Benadryl [diphenhydramine], Chloral hydrate, Octacosanol, and Valium [diazepam] PREVIOUS ANESTHETIC EXPERIENCES AND INTUBATION HIS (more content not included)...[facility] SystemTelephone Encounteron 11-15-2024 Driller [employer]acher Authentication Interface Message TextEncounter created in error. [facility] SystemTelephone Encounteron [id number] Authentication Interface Message Jonh from [facility] calling in to see what appt for 11/17/24 is for. There is some confusion because last OS appt needed to be cancelled because the pt ate. Please follow up with Azra at [phone] MetNEBOTRADEHighland District Hospital System Telephone Encounteron 46-99-8565Rjyqnjxincocj Authentication Interface Message TextSituation: Sparkle is calling from [facility] to see if appointment for today needs to be cancelled/ rescheduled Background: Pt is scheduled for surgery today to have teeth extraction at [address] She was supposed to be NPO for this procedure but accidentally got a breakfast tray and ate the whole thing. She had eggs, toast and applesauce. Assessment: N/A Recommendation: Encounter routed to clinical pool for recommendation. Please call [facility] at [phone] to advise if surgery will need rescheduled.[facility] SystemTelephone Encounteron 14-28-5728Adcbqinhxkard Authentication Interface Message TextPatient's arrival time for 11/02/2024 is 0645, moved earlier per [facility] request. [facility] confirmed 0645 arrival, NPO and med instructions reviewed. [facility] SystemTelephone Encounteron 13-37-3608Daeubegxwicgf Authentication Interface Message TextKierae from [facility] made aware of 0915 surgery arrival time on 11/02 at [address].[facility] SystemTelephone Encounteron 10-15-2024 Driller [employer] Broacher Authentication Interface Message TextSituation: Gabriela Booth calling in on behalf of pt Background: Mom states had gotten a call from staff requesting consent for an upcoming procedure Assessment: n/a Recommendation: Advised Gabriela, this Rn will route message to [facility] provider and staff to call back at [phone] to obtain consent .NormalThe [facility] SystemPAT Call Historyon 69-44-0429Zbpmgrcfzypdo Authentication Interface Message TextTelephone History Vee Sarabia, [id number] 10/12/2024 Patient was identified by name and date of with Nurse Cassidy at [facility]. Needs: Physical, Neck Circumference, BHCG and Seizure Precautions on DOS. If the patient becomes ill prior to procedure or surgery, they are to call their provider or surgeon's office directly. Will need LG consent 10/12/2024- Faxed Prep info to [facility] : 39 year old 146.6 lbs 4' 10 Date of Surgery: 11/02 Surgeon: Pretty Type of Surgery: EXTRACTION, TEETH: #12,#13,#14 HISTORY OF PRESENT ILLNESS: Telephone history prior to the surgery at [facility], [address] [place] [address], enter through the main entrance, check-in at [...] problems (dental caries) Endo (+) hypothyroidism, obesity managed care specialist Comment: Regular menses Neuro/Psych (+) bipolar disorder, [...] 2 times daily. le (more content not included)...NormalThe [facility] Health SystemProgress Noteson 96-99-8023Mmsdsezdlxuvt Authentication Interface Message TextTeaching Physician Note: I saw and evaluated the patient. I personally obtained the michelle and critical portions of the history and physical exam. I reviewed the resident's documentation and discussed the patient with the resident. I agree with the resident's medical decision making as documented in the resident's note. Moo Olsen DMD, [facility]elloLakeHealth [facility] SystemTelephone Encounteron 44-76-7771Xobpumtnipdgw Authentication Interface Message Text[facility] Telephone Information: To discuss the need to remove teeth apparently pt mother wants a detailed explanation form facility as why thye extraction is needed [place] did read that it was due to decay and stated this to [facility] SystemProgress Noteson 77-07-3596Ecmudpowuzevb Authentication Interface Message TextOMFS PATIENT VISIT CHIEF COMPLAINT: Pain HISTORY OF [...] DENTAL RESTORATIONS; Surgeon: Fernando Kurtz DDS; Location: [facility] Surgery Mode; Service: Dental DENTAL RESTORATIONS N/A 11/05/2020 Procedure: DENTAL RESTORATIONS; Surgeon: Dru Friedman DDS; Location: [facility] Surgery Mode; Service: Dental DENTAL RESTORATIONS N/A 01/08/2024 Procedure: DENTAL RESTORATIONS; Surgeon: Stacie Torres DMD; Location: [facility]; Service: Dental SOCIAL HX: Tobacco: Never CLINICAL EXAMINATION Extraoral examination: No significant findings No s/s of infection, redness or tenderness to palpation No facial asymmetry or swelling No appreciable LAD No tenderness to palpation of temporalis or masseter Asymptomatic function Intraor (more content not included)...NormalThe Navet[employer] Energy Management SystemTranscription Authentication Interface Message TextNormUniversity Hospitals Lake West Medical CenterKids Quizine Vanderbilt-In[facility] Cancer CenterMidisolaire SystemTranscription Authentication Interface Message TextNoCharm City Food ToursCleveland Clinic [facility]view [facility] SystemTelephone Encounteron 89-76-7971Hqkldksarsnum Authentication Interface Message TextMissed Call Pt's mom/guardian, Gabriela, said she missed a call from Oral Surgery and would like a call back. Please call Gabriela at [phone]. Thanks!NormalThe Navetas Energy Management SystemHCG, QUANTITATIVEon 93-34-0250WDD QnNINF MetroHealthInterpretation and review of laboratory resultsNormalMetroHighland District Hospital MetroHealthCardiologyon 12-28-2023 wave plzs56ijmahpoLffizWbclpfE-N Ywesdbhi530 msMetroHealthQ-T mtlfgitp714 msMetroHealthQ-T interval eltjoapwt376 ms MetroHealthQRS cvvd04ebkxfumFkqqnDglyrzSBB kbylstlm87 msMetroHealthT wave axis16 degreesMetroHealthNo Panel Informationon 28-30-6242WjrzseitlRwfbpf sinus rhythm Nonspecific T wave abnormality Abnormal ECG No previous ECGs available Confirmed by LORENZA PARKS ([id number]) on 12/28/2023 8:11:02 PM MetroHealthP wave Atrium by DND98JCPMorleWoqylnKtzicLpiujtJwpmf metabolic 2000 panelon 62-09-2180Mpfwb gap [Moles/Vol]13 mmol/L10 - 20MetroHealthCalcium [Mass/Vol]9.0 mg/dL8.6 - 10.3 mg/dLMetroHealthChloride [Moles/Vol]102 mmol/L98 - 107 mmol/LMetroHealthCO2 [Moles/Vol]23 mmol/L21 - 31 mmol/LMetroHealth Creatinine [Mass/Vol]0.36 mg/dLLow0.60 - 1.20 mg/dLMetroHealthGFR/1.73 sq M.predicted CKD-EPI (S/P/Bld) [Vol rate/Area]133- PINFMetroHealthComment on above:2020 CKD EPI Equation using Creatinine without Race [...] Inclusion of Race in Diagnosing Kidney Disease. AmericanJournal of Kidney Diseases 202;79(2):268-88.e1. 2. N Engl J Med 2021 Vol. 385 Issue 19 Pages 8603-6317 Glucose [Mass/Vol]85 mg/dL74 - 109 mg/dLMetroHealthInterpretation and review of laboratory resultsAbnormalMetroHealthPotassium [Moles/Vol]4.4 mmol/L3.5 - 5.0 mmol/LMetroHealthSodium [Moles/Vol]134 mmol/TOmo865 - 145 mmol/LMetroHealthUrea nitrogen [Mass/Vol]7 mg/dL7 - 25 mg/dLMetroHealthMetroHealthCBC panel Auto (Bld) on 55-01-0585Dgltzkgzfcx distribution width (RBC) [Ratio]16.1 %High11.5 - 14.5 % MetroHealthHematocrit (Bld) [Volume fraction]33.5 %Low36.0 - 46.0 %[facility] Hemoglobin (Bld) [Mass/Vol]10.8 g/dLLow12.0 - 15.0 g/dLMetroHealthInterpretation and review of laboratory resultsAbnormalMetroHealthMCH (RBC) [Entitic mass]31.1 pg26.0 - 34.0 pgMetroHealthMCHC (RBC) [Mass/Vol]32.3 g/dL32.0 - 35.9 g/dL MetroHealthMCV (RBC) [Entitic vol]96 fL80 - 100 fLMetroHealthPlatelet mean volume (Bld) [Entitic vol]9.3 fL7.5 - 11.2 fLMetroHealthPlatelets (Bld) [#/Vol] 425 10*3/tPZckp340 - 400 K/uLMetroHealthRBC (Bld) [#/Vol]3.48 10*6/uLLow MetroHealthWBC (Bld) [#/Vol]5.3 10*3/uL4.5 - 11.5 K/uLMetroHealthMetroHealthMS Gastric Emptying Studyon 07-63-7838EJ Gastric Emptying StudyExam Date/Time: 09/23/2023 13:59 EDT Reason for Exam: Nausea Report IMPRESSION: NORMAL GASTRIC EMPTYING. EXAM: MS Gastric Emptying Study DATE: 09/23/2023 10:22 AM CLINICAL HISTORY: Nausea. COMPARISON: None available. TECHNIQUE: 25 mCi of technetium 99m sulfur colloid was eaten with 4 oz egg- beaters, 1 slice of toast, 14 oz of [...] 60%) 30.4 3.0 hr (Upper Limit 30%) 1.5[facility] Montpelier HospitalConsent for Treatmenton 98-57-8474Apelijg for Treatment [id number]#1.00TIFToledo HospitalIntraOperative Documentson 77-93-1130JtggdPaztmnhas Documents [id number]#1.00TIFToledo HospitalProgress Note-Physicianon 14-55-5492Eykxzmwy Note-PhysicianPatient: VEE SARABIA Age: 38 years Sex: Female [...] mental retardation (I.Q. 20-34) / SNOMED CT 55517483 / Confirmed Seizure disorder / SNOMED CT 290566131 / Confirmed Seasonal allergy / SNOMED CT 3290612650 / Confirmed Pervasive developmental disorder / SNOMED CT 41525135 / Confirmed Osteoporosis / SNOMED CT 544038666 / Confirmed Impulse control disorder / SNOMED CT 641601602 / Confirmed Disruptive behavior disorder / SNOMED CT 36999560 / Confirmed Constipation / SNOMED CT 78517345 / Confirmed Cholelithiasis / SNOMED CT 884728776 / Confirmed Cerebral palsy / SNOMED CT 677687485 / Confirmed Bipolar / SNOMED CT 662590069 / Confirmed Histories Procedure history: No active procedure history items have been selected or recorded. Social History Social & Psychosocial Habits Tobacco 09/10/2023 Tobacco Use: Never (less than 100 in l Smokeless tobacco use: Never . Physical Examination Airway: Mallampati classification: II (soft palate, fauces, uvula visible). Respiratory: adequate air exchange. Cardiovascular: Regular rhythm. Plan [place] Society of Anesthesiologists (ASA) physical status classification: Class III. Anesthetic Preoperative Plan: Anesthesia General.[facility] Montpelier HospitalComment on above:Result Comment: Electronically Signed By: Chaim Phillips Jr, DO\.br\Date and Time Signed: 09/18/23 08:45 EDTProgress Note-Physician Patient: VEE SARABIA Age: 38 years [...] Discharge when meets criteria ( To home ).[facility] Montpelier HospitalComment on above:Result Comment: Electronically Signed By: Chaim Phillips Jr, DO\Kellybr\Date and Time Signed: 09/18/23 08:45 EDTConsenton 23-00-0947Jfqrggc [id number]#1.00TIFToledo HospitalDischarge Instructionson 11-35-0579Jbqumycdj Instructions [id number]#1.00TIFToledo HospitalMain OR Intraoperative Recordon 91-79-3083Ippl OR Intraoperative Record IntraOp Document Type FT Summary Primary Physician: Jessee Nina MD Finalized Date/Time: 09/17/23 09:56:06 Pt. Name: VEE SARABIA /Sex: 1985 Female Med Rec #: [id number] Physician: Jessee Nina MD Financial #: [id number] Pt. Type: O Room/Bed: / Admit/Disch: 09/16/23 [...] 3 Case Attendee Margret SALMON, James Haynes SITE TECHNICIAN, Josefa Nina MD, Jessee Cerda Role Performed Anesthesiologist Scrub - Primary Surgeon - Primary Road Equipment Operator Time In 09/16/23 08:21:00 09/16/23 08:21:00 09/16/23 08:21:00 Time Out 09/16/23 08:33:00 09/16/23 08:33:00 09/16/23 08:33:00 Procedure EGD(.) EGD(.) EGD(.) Comments Dr. Phillips is supervising Last Modified By: Kevin HERMOSILLO, Wendy Brown RN, Wendy Dennis RN 09/16/23 08:32:53 09/16/23 08:32:53 09/16/23 08:32:53 Entry 4 Case Attendee Wendy Brown RN Role Performed Geodetic Survey Director - Primary Time In 09/16/23 08:21:00 [...] Out James Sidhu Given Participants Ivy Gonsales SITE TECHNICIAN, Kelle Bean MD, Jessee Chester, Wendy [...] and tissue Entry 1 Skin Integrity Intact, [place], Warm, and Skin Abnormality No Dry Outcomes [...] Left Leg Po (more content not included)... [facility] HospitalConsent for Treatmenton 99-49-8104Pookeom for [id number]#1.00TIFFNoMercy Health Willard HospitalDischarge Instructionson 97-85-0771Avppuyegy Instructions ROXYJOSE LUISVETOAYLIN Neff :1985 Visit Date:09/16/2023 Inpatient Discharge Instructions Your [...] weeks Comments: Call for any problems. Where: [address] [place] [address] [address], [address] [place] [address]- [phone] Business (1) Medications What How Much When Instructions Next Dose Unchanged calcium carbonate (Maalox Antacid Barrier) Chewed Every day Unchanged carbamazepine By Mouth 3 times a day Unchanged chlorhexidine topical (chlorhexidine 0.12% mucous membrane liquid) 15 Milliliter By Mouth2 times a day Unchanged cholecalciferol (Vitamin D3) [...] not get help, your stomach can bleed, andyou can get sores (ulcers) in your stomach. [...] of certain medicines, such (more content not included)...[facility]ier HospitalComment on above:Result Comment: Electronically Signed By: Stacie Prescott RN\.br\Date and Time Signed: 09/16/23 08:49 EDTEGDon 15-15-7477JxdxjllnkaicaxpwhffdyzzzdlVkkwrvq: VEE SARABIA Age: 38 years Sex: Female : 1985 Associated Diagnoses: None Author: Jessee Nina MD Pre-Procedure Procedure Date 09/16/2023 08:36:00 . Procedure Type: Esophagogastroduodenoscopy with biopsy. Procedure provider Performed by Jessee [...] 0 senna: Oral, BID, Refills(s) 0, Constipation Anticoagulant/antiplatelet None. ASA Classification: Class II. . Monitoring: See anesthesia record. . Procedure The procedure was performed in the hospital. See anesthesia record for sedation given during procedure. The patient was positioned starting in the left lateral decubitus position and with safety measures. Endoscope type used was an adult- size, gastroscope, introduced orally, advanced to the 2nd portion of the duodenum. No difficulty was encountered during the procedure. Views were excellent. The patient tolerated the procedure well. Findings Z-line regular at 37 Normal esophagus Erythema in the antrum, moderate and patchy. Otherwise normal stomach. Biopsies of the stomach weretaken to rule out H. pylori. Few sessile polyps was glassy appearance consistent with fundic gland polyps Normal duodenum status post biopsies. Images Procedure images: Rec1_hd_video_2023__[id number].jpg Rec1_hd_video__[id number]_34_29_[id number].jpg Rec1_hd_video__T07_34_48_268.jpg Rec1_hd_video__T07_35_10_885.jpg . Post-Procedure Complications: none. Estimated blood loss: minimal. Specimens: sent to pathology. Devices/ implants: none left in place. Impression and Plan irregular Z-line Gastropathy fundic gland polyps Status post biopsies from stomach and duodenum Recommendations: -Resume previous diet -Resume home medications -Await pathology resultsNoMercy Health Willard HospitalComment on above:Other Comment: Missing Attachment - attachment storage system not supported [id number] Can be viewed in source system Missing Attachment - attachment storage system not supported [id number] Can be viewed in source systemMissing Attachment - attachment storage system not supported [id number] Can be viewed in source systemMissing Attachment - attachment storage system not supported [id number] Can be viewed in source systemMain OR PACU I Recordon 94-72-6639Sjwj OR PACU I RecordPACU Phase I Document Type FT Summary Primary Physician: MoJessee roberts MD Finalized Date/Time: 09/16/23 09:20:05 Pt. Name: VEE SARABIA Aurelia/Sex: 1985 Female Med Rec #: [id number] Physician: Jessee Nina MD Financial #: [id number] Pt. Type: O Room/Bed: / Admit/Disch: 09/16/23 [...] individualized perioperative plan of care The patient's rightto privacy is maintained The patient's value system, [...] with or improved from baseline levels established preoperativelyThe patient's cardiovascular status is consistent with or improved from baseline levels established preoperatively The patient's cardiovascular status is consistent with or improved from baseline levels established preoperatively The patient demonstrates and/or reports adequate pain control throughout the perioperative period The patient received appropriate medication(s), safely administered during the perioperativeperiod Acuity Level PACU I FT Entry 1 Start Time 09/16/23 08:35:00 Stop Time 09/16/23 09:05:00 Acuity Level Acuity Level I Last Modified By: Stacie Prescott RN 09/16/23 09:20:02 Finalized By: Stacie Prescott RN Document Signatures Signed By: Stacie Prescott RN 09/16/23 09:20[facility] HospitalMain OR Preoperative Recordon 29-16-7178Fhxc OR Preoperative RecordHolding Area Document Type FT Summary Primary Physician: Jessee Nina MD Finalized Date/Time: 09/16/23 07:37:45 Pt. Name: VEE SARABIA Tawanda Moses/Sex: 1985 Female Med Rec #: [id number] Physician: Jessee Nina MD Financial #: [id number] Pt. Type: O Room/Bed: / Admit/Disch: 09/16/23 [...] or her perioperative plan of care The patient'sright to privacy is maintained Surgery Checklist FT [...] Adult Bill- staff from postop adult Supervision [facility] supervision available Case Cancelled in No Holding Area see comments below for reason Last Modified By: Vanessa Roy RN 09/16/23 07:35:16 General Comments: Caregiver, Bill present with patient from [facility]. /,RN Finalized By: Vanessa Roy RN Document Signatures Signed By: Vanessa Roy RN 09/16/23 07:37NormalCincinnati Va Medical CenterMonitor Recordon 15-43-1079Zqllsdu Record [id number]#1.00TIFFParkview Health Montpelier HospitalMonitor [id number]#1.00TIFFBrown Memorial HospitalConsent for Procedure/Surgeryon 73-14-4423Zuloidc for Procedure/[id number]#1.00TIFToledo HospitalAmbulatory Visit Summaryon 05-91-5245Svmkblcgha Visit Summary VEE SARABIA :1985 Visit Date:09/10/2023 [...] Appointments Thursday. 2023 8:00 AM EDT [facility] You Need to Complete the Following NM Gastric Emptying Study, 09/10/23, Routine, Order for Future Visit, Transport Mode: Ambulatory, Reason: Nausea, Nausea and vomitingInvalid Interpretation Code Early satietyCincinnati Va Medical CenterGastroenterology Office/Clinic Noteon 26-83-5007Lpunkcsstjqmjhhm Office/Clinic NoteChief Complaint nausea/vomiting, constipation, weight loss HPI Staff Patient is a 38 year old female who was referred by [facility] for nausea and vomiting. Intermittent nausea [...] diphtheria/pertussis, acel/tetanus adult 08/14/2022 Recorded SARS-CoV-2 (COVID-19) mRNAMUL.ORD![id number] 08/14/2022 Recorded influenza virus vaccine, inactivated 03/05/2022 Recorded SARS-CoV-2 (COVID-19) mRNAMUL.ORD![id number] 03/05/2022 Recorded 2023-09-09: TPVALL influenza virus vaccine, [...] formulation 07/02/1987 Recorded measles/mumps/rubella virus vaccine 11/15/1986 RecordedNormalCincinnati Va Medical CenterComment on above:Result Comment: Electronically Signed By: Kelle RAMIREZ, Jessee Chester\.br\Date and Time Signed: 09/09/2408:40 EDTNursing Home Recordson 75-49-5315Ajuqmen Home [id number]#1.00TIFF [facility]pelier HospitalCB w/Indiceson 67-87-9042Qafzrrhiaxa distribution width (RBC) [Ratio]15.4 %High10.9-14.2FNationwide Children's Hospital Comment on above:Performed By: #### 8050930, 0182047, 0741710, 7067847, 1684675, 3456779, 2085040, 20039947, 2340206, 9527506 ####[facility] [address] [place], [place] [address]Vuwgiyvcvg (Bld) [Volume fraction] 37.4 %Jsnthw17.0-46.0C[facility]innati Va Medical CenterComment on above:Performed By: #### 6688045, 9205104, 6077922, 5656957, 7276127, 2170061, 5591762, 53025289, 2432780, 1183693 ####[facility] [address] [place], [place] [address]Rgndfeehzc (Bld) [Mass/Vol]12.1 g/jUKwjbxa14.0-16.0C[facility] Va Medical CenterComment on above:Performed By: #### 6523329, 6916643, 5324860, 9625610, 9944547, 6858225, 9562461, 73192128, 8379175, 3553810 ####[facility] [address] [place], [place] [address]YWG (RBC) [Entitic mass]30.9 csKepqgf37.0-34.0C[facility] Va Medical CenterComment on above:Performed By: #### 7301845, 2901083, 4257125, 7982581, 3783227, 4564105, 8982624, 58163067, 0605681, 2547885 ####[facility] [address] [place], [place] [address]IEPI (RBC) [Mass/Vol]32.4 g/dLNormal 31.4-36.0C[facility] Va Medical CenterComment on above:Performed By: #### 9764232, 4009711, 5959798, 2625031, 3691932, 3148504, 1198174, 95506886, 3013386, 1457377 ####[facility] [address] [place], [place] [address]DDT (RBC) [Entitic vol]95.6 qJGsfjph65.0-100.0[facility] Comment on above:Performed By: #### 0253535, 9275414, 3947622, 4752831, 2525622, 5773716, 2997414, 53427224, 3289248, 5681957 ####[facility] [address] [place], [place] [address]Jkffoaoy mean volume (Bld) [Entitic vol]12.2 fLHigh6.4-10.8C[facility] Va Medical CenterComment on above:Performed By: #### 2236388, 9139485, 0692136, 2284326, 9202806, 6065239, 2731343, 82404032, 9032029, 8754625 ####[facility] [address] [place], [place] [address]Evaulimbt (Bld) [#/Vol]309.0 E9/LPdtjns744.0-500.0C[facility]innati Va Medical CenterComment on above:Performed By: #### 4040913, 5460852, 2846752, 3242207, 2220775, 8977560, 3766746, 91460614, 9726577, 9331515 ####[facility] [address] [place], [place] [address]WYC (Bld) [#/Vol]3.9 E12/LLow4.3-5.9C[facility]innati Va Medical CenterComment on above: Performed By: #### 7676199, 4273752, 1614658, 6088151, 5495459, 3608492, 8951601, 05301897, 9840635, 6243739 ####[facility] [address] [place], [place] [address]NPZ corrected for nucl RBC Auto (Bld) [#/Vol]6.5 E9/LNormal4.0-11.0C[facility] Va Medical CenterComment on above: Performed By: #### 3541447, 4137403, 6348568, 9553855, 9212775, 3865083, 4466556, 17035368, 6695917, 1748038 ####[facility] [address] [place], [place] [address]QNSGDNIXOGaxmxsj By: SYSTEM SYSTEM on 33-71-2146Xndvrry [Mass/Vol]3.7 g/dLNormal3.3 - 5.0 gm/dLFTMC Remisol Albumin/Globulin [Mass ratio]1.2 {ratio}Normal1.1 - 2.2[facility] RemisolALP [Catalytic activity/Vol]32 [iU]/cZvvadc64 - 98 Int._Unit/LFTMC RemisolALT No additional P-5'-P [Catalytic activity/Vol]24 [iU]/dNormal6 - 46 Int._Unit/LFTMC RemisolAnion gap [Moles/Vol]13 mmol/LNormal6 - 16 mEq/LFTMC RemisolAST [Catalytic activity/Vol]28 [iU]/dNormal5 - 43 Int._Unit/LFTMC RemisolBilirubin [Mass/Vol]0.1 mg/dLNormal0.0 - 1.1 mg/dLFTMC RemisolCalcium [Mass/Vol]8.9 mg/dL Normal8.9 - 11.1 mg/dLFTMC RemisolcarBAMazepine [Mass/Vol]4.4 microgram/mLNormal 4.0 - 12.0 mcg/mLFTMC RemisolChloride [Moles/Vol]98 mmol/WYvj241 - 111 mmol/L [facility] RemisolCO2 [Moles/Vol]24 mmol/NOwredr82 - 31 mmol/LFTMC RemisolCobalamin (Vitamin B12) [Mass/Vol]305 pg/lQDqrvfq53 - 1500 pg/mLFTMC RemisolCreatinine [Mass/Vol]0.5 mg/dLNormal0.5 - 1.3 mg/dLFTMC RemisolFerritin [Mass/Vol]39 ng/mL Wqbozs92 - 307 ng/mLFTMC RemisolComment on above:Interpretive Data: NORMALS MEN <30 YRS 16-132 ng/mL MEN >30 YRS 8-338 ng/mL WOMEN (PREMEN) 6-104 ng/mL WOMEN (POSTMEN) 12-210 ng/mLFree T4 [Mass/Vol]0.97 ng/dLNormal0.58 - 1.64 ng/dL [facility] RemisolGFR/1.73 sq M.predicted among non-blacks MDRD (S/P/Bld) [Vol rate/Area]124 mL/min/1.73 c8Pbjabo>=59mL/min/1.73 m2FT[facility] Chem SComment on above: Interpretive Data: Chronic kidney disease could be indicated at eGFR's of less than 60 mL/min/1.73m2. Kidney failure is indicated at less than 15 mL/min/1.73m2.Globulin (S) [Mass/Vol]3.2 g/dLNormal1.4 - 4.0 gm/dLFTMC Remisol Glucose [Mass/Vol]86 mg/hERseplw91 - 199 mg/dLFTMC RemisolComment on above: Interpretive Data: If this glucose result represents a fasting glucose, interpretation should referto the following reference range: 55-99 mg/dLIron [Mass/Vol]130 ug/zXMshwyb99 - 153 mcg/dLFTMC RemisolPotassium [Moles/Vol]4.3 mmol/LNormal3.5 - 5.3 mmol/LFTMC RemisolProtein [Mass/Vol]6.9 g/dLNormal6.0 - 7.8 gm/dLFTMC RemisolSodium [Moles/Vol]131 mmol/FSml910 - 145 mmol/LFTMC Remisol TSH Qn0.96 m[IU]/LNormal0.34 - 5.60 mcIU/mLFT RemisolUrea nitrogen [Mass/Vol]8 mg/dLNormal5 - 21 mg/dLFT RemisolUrea nitrogen/Creatinine [Mass ratio]16 mg/kyXbtxgs83 - 20FT RemisolValproate [Moles/Vol]59 microgram/sIJhhmzi14 - 99 mcg/mLFT RemisolCMPon 91-69-8584Cuehkkw [Mass/Vol]3.7 g/dLNormal3.3-5.0C[facility]innati Va Medical CenterComment on above:Performed By: #### 1370540, 1991223, 8009933, 4438173, 4754705, 5185888, 9289228, 85793293, 9778930, 3522934 ####[facility] [address] [place] [address] Albumin/Globulin (S) [Mass conc ratio]1.5Qxewsl6.1-2.2FNationwide Children's HospitalComment on above:Performed By: #### 0029156, 3048371, 7691811, 2641718, 3147247, 2022190, 9687664, 29090591, 7004060, 9264563 ####[facility] [address] [place], [place] [address]IFZ [Catalytic activity/Vol]32 Int._Unit/LQegtdj80-32MkpirqCincinnati Va Medical CenterComment on above:Performed By: #### 9281592, 8619647, 5414591, 6302476, 5337412, 8988573, 4611852, 18063352, 5724050, 3659320 ####[facility] [address] [place], [place] [address]UYJ No additional P-5'-P [Catalytic activity/Vol]24 Int._Unit/LNormal6-46C[facility] Va Medical CenterComment on above:Performed By: #### 5324956, 0704568, 4596301, 0174152, 6100600, 6407275, 4073084, 33012435, 7561130, 0199994 ####[address] [place], [place] [address]Xqkka gap [Moles/Vol]13 mmol/LNormal6-16C[facility] Va Medical CenterComment on above:Performed By: #### 3301133, 0936630, 9799334, 4648138, 3546902, 5553898, 4961905, 26457157, 4423393, 7327529 ####[facility] [address] [place], [place] [address]FJB [Catalytic activity/Vol]28 Int._Unit/LNormal5-43C[facility] Medical CenterComment on above:Performed By: #### 8660176, 0063156, 1284979, 6543573, 0291804, 0922695, 9167783, 70136972, 1784239, 4807551 ####[facility] [address] [place], [place] [address]Juxcpgozb [Mass/Vol]0.1 mg/dLNormal0.0-1.1FNationwide Children's HospitalComment on above:Performed By: #### 8922738, 3643078, 4053043, 2203182, 3131075, 8001007, 0374455, 99906988, 7882262, 3775970 ####[facility] [address] [place], [place] [address]Ekcsqbi [Mass/Vol]8.9 mg/dLNormal8.9-11.1FNationwide Children's HospitalComment on above:Performed By: #### 3811837, 0064333, 7524775, 7788550, 8863776, 4323656, 1024194, 56301122, 0699566, 5494444 ####[facility] [address] [place], [place] [address]Nfrngblm [Moles/Vol]98 mmol/KQor457-101FcwjikCincinnati Va Medical CenterComment on above:Performed By: #### 8312260, 3416474, 1089687, 6043827, 1570443, 1946222, 3962560, 46941964, 0884709, 1432281 ####[facility] [address] [place], [place] [address]TW1 [Moles/Vol]24 mmol/LNormal 21-31C[facility] Va Medical CenterComment on above:Performed By: #### 8928761, 9149435, 8570031, 8948724, 6261275, 7648970, 5300643, 95845681, 7057886, 3929990 ####[facility] [address] [place] [address] Creatinine [Mass/Vol]0.5 mg/dLNormal0.5-1.3FNationwide Children's HospitalComment on above:Performed By: #### 0013813, 7651461, 9241044, 1837215, 6528252, 4244872, 2276722, 11286943, 3816548, 5948686 ####[facility] [address] [place], [place] [address]Nskgzapb (S) [Mass/Vol]3.2 g/dLNormal 1.4-4.0C[facility] Medical CenterComment on above:Performed By: #### 8861459, 9499274, 3603221, 9970362, 6366946, 0586354, 7823507, 98283465, 9854388, 1636967 ####[facility] [address] [place] [address] Glucose [Mass/Vol]86 mg/vHPlsclq98-758Cmovzx Ivan Medical CenterComment on above:Result Comment: If this glucose result represents a fasting glucose, interpretation should refer tothe following reference range: 55-99 mg/dL Performed By: #### 7941694, 3407619, 2268612, 4659477, 5139409, 9849047, 6160651, 95064862, 3561271, 2076246 ####[facility] [address] [place], [place] [address]Ikukvdwqd [Moles/Vol]4.3 mmol/LNormal 3.5-5.3FNationwide Children's HospitalComment on above:Performed By: #### 6720904, 6412070, 6223088, 3469591, 3918120, 4441002, 9886579, 37557149, 0155610, 4379927 ####[facility] [address] [place] [address] Protein [Mass/Vol]6.9 g/dLNormal6.0-7.8C[facility] Medical CenterComment on above:Performed By: #### 7574686, 2276460, 7453240, 0450842, 4159894, 9514156, 8460475, 14067787, 4875890, 9058686 ####[facility] [address] [place], [place] [address]Jdkenf [Moles/Vol]131 mmol/LLow 135-145C[facility] Va Medical CenterComment on above:Performed By: #### 7554470, 9510785, 5002071, 3057528, 6917044, 3268364, 9076773, 34866400, 8297412, 5638834 ####[facility] [address] [place], [place] [address]Nroc nitrogen [Mass/Vol]8 mg/dLNormal5-21C[facility] CenterComment on above:Performed By: #### 2902877, 3990977, 2126531, 9169879, 8090615, 3080176, 6610834, 32754919, 3916782, 1098315 ####[facility] [address] [place], [place] [address]Ikho nitrogen/Creatinine [Mass ratio] 16 No UfgzhPfchst75-86McljhvCincinnati Va Medical CenterComment on above:Performed By: #### 7676955, 3906711, 1944196, 8816921, 3937554, 1754315, 2217094, 33701447, 9144654, 8066573 ####[facility] [address] [place], [place] [address]Wbieampywbxutbg 84-39-7092ajfUZIkuppndw [Mass/Vol]4.4 microgram/mLNormal4.0-12.0C[facility] CenterComment on above:Performed By: #### 4538689, 4645639, 1219826, 0668863, 8648827, 4057504, 0260713, 80196392, 8610971, 6460219 ####[facility] [address] [place], [place] [address]Vwfpfoonme 93-93-0150Bgytptws [Mass/Vol]39 ng/mL Exuhzv63-143QhrnkaCincinnati Va Medical CenterComment on above:Result Comment: NORMALS MEN <30 YRS 16-132 ng/mL MEN >30 YRS 8-338 ng/mL WOMEN (PREMEN) 6-104 ng/mL WOMEN (POSTMEN) 12-210 ng/mLPerformed By: #### 7039734, 8542871, 1422639, 3801200, 5773022, 0610407, 6415583, 94879136, 5717245, 1461343 ####[facility] [address] [place], [place] [address]Exsg T4on 04-01-2023 Free T4 [Mass/Vol]0.97 ng/dLNormal0.58-1.64[facility] CenterComment on above:Performed By: #### 1958507, 8214990, 7326507, 8641666, 9560340, 2667649, 9570829, 64779140, 1587045, 1694446 ####[facility] [address] [place], [place] [address]MITAVHWAQZQishxjt By: Stacie Carey on 14-72-3439Atzeqaxrpfq distribution width (RBC) [Ratio]15.4 %High10.9 - 14.2 % [facility] HemeAutoSSHematocrit (Bld) [Volume fraction]37.4 %Ewhuum76.0 - 46.0 %[facility] HemeAutoSSHemoglobin (Bld) [Mass/Vol]12.1 g/aHIsopvd40.0 - 16.0 gm/dLFTMC HemeAutoSSMCH (RBC) [Entitic mass]30.9 agMtevjl63.0 - 34.0 pgFTMC HemeAutoSSMCHC (RBC) [Mass/Vol]32.4 g/eWWlfwgm10.4 - 36.0 gm/dLFTMC HemeAutoSSMCV (RBC) [Entitic vol]95.6 jLAftpyn98.0 - 100.0 fLFTMC HemeAutoSSPlatelet mean volume (Bld) [Entitic vol]12.2 fLHigh6.4 - 10.8 fLFTMC HemeAutoSSPlatelets (Bld) [#/Vol]309.0 E9/JFalcvj896.0 - 500.0 E9/LFT[facility] HemeAutoSSRBC (Bld) [#/Vol]3.9 E12/LLow4.3 - 5.9 E12/LFTMC HemeAutoSSWBC corrected for nucl RBC Auto (Bld) [#/Vol]6.5 E9/LNormal4.0 - 11.0 E9/LFTMC HemeAutoSSIronon 84-72-3222Ebvz [Mass/Vol]130 microgram/oMTfvuwq75-496FujcfiCincinnati Va Medical CenterComment on above:Performed By: #### 9980620, 1616119, 8609659, 4764222, 8183320, 9937670, 3351263, 71224614, 4133109, 6080684 ####[facility] [address] Gall[place], [place] [address]Uvjgsuphb Orderon 05-34-1161Yswqzhcmn [id number]#1.00TIFFNormalCincinnati Va Medical CenterTSHon 86-43-8277MAA Qn0.96 m[IU]/LNormal0.34-5.60[facility] CenterComment on above:Performed By: #### 6329196, 7367025, 2422571, 3503491, 3670201, 0488498, 1710866, 50035232, 5752743, 8894708 ####[facility] [address] [place], [place] [address]Bnzgzcvr Acidon 76-27-4888Hqywldsmh [Moles/Vol]59 microgram/lKWcoknk99-18OyhtmbCincinnati Va Medical CenterComment on above:Performed By: #### 6467364, 6994523, 9244392, 5848821, 3183148, 4857092, 9604517, 15364201, 4016734, 8515511 ####[facility] [address] [place], [place] [address]Ugf B12on 24-75-8760Oclryyylv (Vitamin B12) [Mass/Vol]305 pg/kURsfcig93-6240NwncviCincinnati Va Medical CenterComment on above:Performed By: #### 6163507, 8907384, 9438174, 7744191, 1794967, 9552740, 7810995, 73315593, 6102316, 7955494 ####[facility] [address] [place], [place] [address]jVERjv 36-43-4450ZSP/1.73 sq M.predicted among non-blacks MDRD (S/P/Bld) [Vol rate/Area]124 mL/min/1.73 m2 Normal>=59C[facility] Va Medical CenterComment on above:Order Comment: Order added by Discern Expert.Result Comment: Chronic kidney disease could be indicated at eGFR's of less than 60 mL/min/1.73m2. Kidney failure is indicated at less than 15 mL/min/1.73m2.Performed By: #### 6375845, 7726250, 1632104, 4853506, 5496193, 5747558, 4717444, 08890283, 7628632, 7130254 ####[facility] [address] [place], [place] [address]LPPBGMEONUgtykrs By: SYSTEM SYSTEM on 58-30-1732Dkcpcntwc [Moles/Vol]82 microgram/yBCmgnvd54 - 99 mcg/mLINTEGRIS [facility] [place] Remisol Physician Orderon 68-86-1340Ssyzwwvdi Order [id number]#1.00CD:127NormalFisher Thomas B. Finan CenterValproic Acidon 78-61-3761Ypsssomtk [Moles/Vol]82 microgram/kJEeycns92-35 [facility] CenterComment on above:Performed By: #### 0322918 ####[facility] [address] [place], [place] [address]AO DEXA BONE DENSITYon 96-13-7492OJ DEXA BONE DENSITYEXAMINATION: XR DEXA BONE DENSITY, 10/01/2022 9:46 AM EDT HISTORY: [...] Electronically authenticated by: SANDY RAMIREZ Date: 2022-10-01 11:02[facility] CenterCB AUTO DIFFon 19-88-1834EQWG #0.0 103/ulNormal0.0-0.1[facility] HospitalComment on above:Performed By: #### CBC #### [facility] [address] [place], [place] [address] Dr. Chong Cruzphils/100 WBC (Bld)0.3 %Normal0.2-2.0[facility] Comment on above:Performed By: #### CBC #### [facility] [address] [place] [address] Dr. Chong Snow #0.0 103/ulNormal0.0-0.7The [facility] Brent[facility] HospitalComment on above: Performed By: #### CBC #### [facility] [address] [place] [address] Dr. Chong Wilcoxosinophils/100 WBC (Bld)0.4 %Critically low0.9-7.0The [facility] Brent[facility] HospitalComment on above:Performed By: #### CBC #### [facility] [address] [place] [address] Dr. Chong Wilcoxrythrocyte distribution width (RBC) [Ratio]14.6 %Qkebzd65.0-15.0 [facility] HospitalCombeaumont hospital on above:Performed By: #### CBC #### [facility] [address] [place] [address] Dr. Chong AgarwalHematocrit (Bld) [Volume fraction]37.6 %Tclkxq66.0-48.0The [facility] HospitalComment on above:Performed By: #### CBC #### [facility] [address] [place] [address] Dr. Chong AgarwalHemoglobin (Bld) [Mass/Vol]12.2 g/eWVhztgb39.0-16.0The [facility] HospitalComment on above:Performed By: #### CBC #### [facility] [address] [place] [address] Dr. Chong Booker #0.02 10e3/ulNormal0.00-0.03The [facility] HospitalCombeaum[facility] hospital on above:Performed By: #### CBC #### [facility] [address] [place] [address] Dr. Chong Booker %0.3 %Normal0.0-0.5The [facility] HospitalComment on above: Performed By: #### CBC #### [facility] [address] [place] [address] Dr. Chong EspinosaMPH #2.4 103/ulNormal1.2-3.8The [facility] HospitalComment on above:Performed By: #### CBC #### [facility] [address] [place] [address] Dr. Chong AgarwalLymphocytes/100 WBC (Bld)34.6 %Reikuy61.5-60.0The [facility] HospitalComment on above:Performed By: #### CBC #### [facility] [address] [place] [address] Dr. Chong Kelley DIFF REQNONormalThe [facility] & Brentwood HospitalComment on above: Performed By: #### CBC #### [facility] [address] [place] [address] Dr. Chong Fisher (RBC) [Entitic mass]31.4 hsBvndjs29.7-34.0The [facility] Hospitalment on above:Performed By: #### CBC #### [facility] [address] [place] [address] Dr. Chong Fisher (RBC) [Mass/Vol]32.4 g/yRKnxplp04.9-35.2The [facility] HospitalComment on above:Performed By: #### CBC #### [facility] [address] [place] [address] Dr. Chong Fisher (RBC) [Entitic vol]96.7 hZFycbnk35.0-99.0The [facility] Hospitalment on above:Performed By: #### CBC #### [facility] [address] [place] [address] Dr. Chong Hernandez #0.7 103/ulNormal0.3-0.8The [facility] Hospitalment on above:Performed By: #### CBC #### [facility] [address] [place] [address] Dr. Chong Ballesterosocytes/100 WBC (Bld)10.2 %Normal1.7-12.0The [facility] Comment on above:Performed By: #### CBC #### [facility] [address] [place] [address] Dr. Chong Limon #3.8 103/ulNormal1.4-6.5The [facility] Hospitalment on above:Performed By: #### CBC #### [facility] [address] [place] [address] [address] Chong Willinghamutrophils/100 WBC (Bld)54.2 %Owtume71.0-75.0The [facility] on above:Performed By: #### CBC #### [facility] [address] [address] [address] Chong Jaramillolet mean volume (Bld) [Entitic vol]11.0 fLNormal9.5-13.5The [facility] HospitalComment on above:Performed By: #### CBC #### [facility] [address] [place] [address] Dr. Chong AgarwalPLT290 103/afHuxxep301-405Vts [facility] on above: Performed By: #### CBC #### [facility] [address] [place] [address] Dr. Chong AgarwalRBC3.89 106/ulCritically low4.20-5.40The [facility] Hospitalment on above:Performed By: #### CBC #### [facility] [address] [place] [address] Dr. Chong AgarwalWBC7.0 103/ulNormal4.0-11.0The [facility] on above: Performed By: #### CBC #### [facility] [address] [place] [address] Dr. Chong Carmona T3on 87-76-4554WAMV T32.11 pg/mlLCritically low2.18-3.98The [facility] on above:Performed By: #### TSH, CMP, LIPID, FT3 #### [facility] [address] [place] [address] Dr. Chong Carmona T4on 27-27-6081Oaot T4 [Mass/Vol]1.25 ng/dLNormal0.76-1.46 The [facility] on above:Performed By: #### FT4, VITB12 #### [facility] [address] [place] [address] Dr. Chong FullerID PROFILEon 31-28-7495VJMC-HDL RATIO NORMSKettering Health – Soin Medical CenterComment on above:Result Comment: 3.3 - 4.4 LOW RISK 4.4 - 7.1 AVERAGE RISK 7.1 - 11.0 MODERATE RISK >11.0 HIGH RISKPerformed By: #### TSH, CMP, LIPID, FT3 #### [facility] [address] [address] [address] Chong AgarwalCholesterol [Mass/Vol]144 mg/dLNormal<=200[facility] Comment on above:Performed By: #### TSH, CMP, LIPID, FT3 #### [facility] [address] [place] [address] Dr. Chong AgarwalCholesterol in HDL [Mass/Vol]49 mg/sMLgkqie22-86SrtOhiohealth Pickerington Methodist HospitalComment on above:Performed By: #### TSH, CMP, LIPID, FT3 #### [facility] [address] [place] [address] Dr. Chong Bhaktaesterol in LDL [Mass/Vol]78.0 mg/dLMetroHealth Parma Medical CenterComment on above:Performed By: #### TSH, CMP, LIPID, FT3 #### [facility] [address] [place] [address] Dr. Chong Mckenzie.total/Cholesterol in HDL [Mass ratio]2.9 {ratio} NormalOhiohealth Pickerington Methodist HospitalComment on above:Performed By: #### TSH, CMP, LIPID, FT3 #### [facility] [address] [place] [address] Dr. Chong Segovia NORMAL> or = 60 mg/dl - LOW CARDIOVASCULAR RISK <40 mg/dl - HIGH CARDIOVASCULAR RISKMetroHealth Parma Medical CenterComment on above:Performed By: #### TSH, CMP, LIPID, FT3 #### [facility] [facility] [address] [place] [address] Dr. Chong AgarwalLDL CALC NORMALSEE [facility] CenterComment on above:Result Comment: <100 mg/dl OPTIMAL 100 - 129 mg/dl NEAR OR ABOVE OPTIMAL 130 - 159 mg/dl BORDERLINE HIGH 160 - 189 mg/dl HIGH >190 mg/dl VERY HIGH Performed By: #### TSH, CMP, LIPID, FT3 #### [facility] [address] [address] [address] Chong AgarwalTriglyceride [Mass/Vol]85 mg/dLNormal<=150The [facility] Comment on above:Performed By: #### TSH, CMP, LIPID, FT3 #### [facility] [address] [address] [address] Chnog AgarwalVLDL CALC17.0 mg/dLNormalThe [facility] HospitalComment on above: Performed By: #### TSH, CMP, LIPID, FT3 #### [facility] [address] [address] [address] Chong Braswell 14(COMP METB)on 66-73-3513Wvhtxyj [Mass/Vol]3.5 g/dLNormal 3.4-5.0The [facility] HospitalComment on above:Performed By: #### TSH, CMP, LIPID, FT3 #### [facility] [address] [address] [address] Chong AgarwalAlbumin/Globulin [Mass ratio]0.9 {ratio}NormalThe [facility] HospitalComment on above:Performed By: #### TSH, CMP, LIPID, FT3 #### [facility] [address] [address] [address] Chong Rasmussen [Catalytic activity/Vol]31 U/LCritically ncb21-758Fpt [facility] HospitalComment on above:Performed By: #### TSH, CMP, LIPID, FT3 #### [facility] [address] [address] [address] Chong Marcelo [Catalytic activity/Vol]34 U/KIammyd91-93Yki [facility] Hospitalment on above:Performed By: #### TSH, CMP, LIPID, FT3 #### [facility] [address] [address] [address] Chong Salmeron gap [Moles/Vol]8.3 mmol/LNormalThe [facility] HospitalComment on above:Performed By: #### TSH, CMP, LIPID, FT3 #### [facility] [address] [address] [address] Chong AgarwalAST [Catalytic activity/Vol]22 U/BXdqmmc98-82Kju [facility] HospitalComment on above:Performed By: #### TSH, CMP, LIPID, FT3 #### [facility] [address] [address] [address] Chong AgarwalBilirubin [Mass/Vol]0.2 mg/dLNormal0.2-1.0The [facility] Comment on above:Performed By: #### TSH, CMP, LIPID, FT3 #### [facility] [address] [place] [address] Dr. Chong AgarwalCalcium [Mass/Vol]9.0 mg/dLNormal8.5-10.1[facility] Comment on above:Performed By: #### TSH, CMP, LIPID, FT3 #### [facility] [address] [place] [address] Dr. Chong AgarwalChloride [Moles/Vol]101 mmol/UGybwys35-262HhjOhiohealth [facility] Comment on above:Performed By: #### TSH, CMP, LIPID, FT3 #### [facility] [address] [place] [address] Dr. Chong AgarwalCO2 [Moles/Vol]30.0 mmol/UJdkcgh55.0-32.0[facility] Comment on above:Performed By: #### TSH, CMP, LIPID, FT3 #### [facility] [address] [place] [address] Dr. Chong AgarwalCreatinine [Mass/Vol]0.54 mg/dLCritically low0.55-1.02The [facility] HospitalComment on above:Performed By: #### TSH, CMP, LIPID, FT3 #### [facility] [address] [place] [address] Dr. Schwarz ChangEGFR-AF ROMANIAN>60Normal>=60The [facility] HospitalComment on above:Performed By: #### TSH, CMP, LIPID, FT3 #### [facility] [address] [address] [address] Chong WilcoxGFR-NON AF ROMANIAN>60Normal>=60The [facility] HospitalComment on above:Performed By: #### TSH, CMP, LIPID, FT3 #### [facility] [address] [address] [address] Chong AgarwalGlobulin (S) [Mass/Vol]3.9 g/dLNormalThe [facility] HospitalComment on above:Performed By: #### TSH, CMP, LIPID, FT3 #### [facility] [address] [place] [address] Dr. Chong AgarwalGlucose [Mass/Vol]95 mg/qVLosere10-415Per [facility] Comment on above:Performed By: #### TSH, CMP, LIPID, FT3 #### [facility] [address] [place] [address] Dr. Chong AgarwalPotassium [Moles/Vol]4.3 mmol/LNormal3.5-5.1The [facility] Comment on above:Performed By: #### TSH, CMP, LIPID, FT3 #### [facility] [address] [address] [address] Chong AgarwalProtein [Mass/Vol]7.4 g/dLNormal6.4-8.2The [facility] Comment on above:Performed By: #### TSH, CMP, LIPID, FT3 #### [facility] [address] [address] [address] Chong AgarwalSodium [Moles/Vol]135 mmol/LCritically nnb762-654Arb [facility] HospitalComment on above:Performed By: #### TSH, CMP, LIPID, FT3 #### [facility] [address] [place] [address] Dr. Chong AgarwalUrea nitrogen [Mass/Vol]12.0 mg/dLNormal7.0-18.0The [facility] HospitalComment on above:Performed By: #### TSH, CMP, LIPID, FT3 #### [facility] [address] [place] [address] Dr. Chong AgarwalUrea nitrogen/Creatinine [Mass ratio]22.2 mg/mgNormalThe [facility] HospitalComment on above:Performed By: #### TSH, CMP, LIPID, FT3 #### [facility] [address] [place] [address] Dr. Chong AgarwalTSHon 19-91-8780IGP4.986 uIU/mLNormal0.358-3.740The [facility] HospitalComment on above:Performed By: #### TSH, CMP, LIPID, FT3 #### [facility] [address] [place] [address] Dr. Chong AgarwalVITAMIN B12on 11-21-8289Vdktyjmla (Vitamin B12) [Mass/Vol]581.0 pg/eBYibapr852.0-986.0The [facility] HospitalComment on above:Performed By: #### FT4, VITB12 #### [facility] [address] [place] [address] Dr. Chong AgarwalCULTURE WOUNDon 47-51-3851AWKANYZ WOUNDCulture Observations: METHICILLIN RESISTANT STAPH AUREUS ISOLATED. PLEASE FOLLOW [...] <=0.25 S F Levofloxacin <=0.12 S F Trimethoprim/Sulfamethoxazole <=20 S F ORGANISM 1 Staphylococcus aureus ANTIBIOTIC M.I.C RX STATUS Beta-Lactamase Pos POS F Cefoxitin Screen Pos POS F Benzylpenicillin >=0.5 R F Oxacillin >=4 R F Ciprofloxacin <=0.5 S F Levofloxacin <=0.12 S F Inducible Clindamycin Resistance Neg NEG F Erythromycin <=0.25 S F Clindamycin <=0.25 S F Quinupristin/Dalfopristin <=0.25 S F Linezolid 2 S F Vancomycin <=0.5 S F Tetracycline <=1 S F Rifampicin <=0.5 S F Trimethoprim/Sulfamethoxazole <=10 S FNormalThe [facility] HospitalComment on above:Performed By: #### WOUNDCX #### [facility] [address] [place] [address] [address] [address] Chong AgarwalDEPAKENE/ VALPROIC ACIDon 93-66-5872PUHRONWD85.4 ug/mlNormal 50.0-100.0The [facility] HospitalComment on above:Performed By: #### VALP #### [facility] [id number] Chong Agarwal Vital Signs Date TimeVital SignValuePerforming DobhoypaiScjcciyb93-95-0813 13:30-0400Body huwvviwwnam27 [degF]Moo Olsen DMD, MD Work Phone: [phone]oXhihgu90-87-0280 13:30-0400Diastolic blood wwjesnjv93 mm[Hg]Moo Olsen DMD, MD Work Phone: [phone]jDfqiop03-11-4046 13:30-0400Heart rate74 /min Moo Olsen DMD, MD Work Phone: [phone]vQsncnz14-42-0407 13:30-0400Respiratory rate14 /minJukaren Olsen DMD, MD Work Phone: [phone]wYapgyq86-50-2047 13:30-3940DiV5% (BldA) [Mass fraction]97 %Moo Olsen DMD, MD Work Phone: [phone]oHavhik30-08-7058 13:30-0400Systolic blood epmvyjyl796 mm[Hg]Moo Olsen DMD, MD Work Phone: [phone]tPermfq08-58-2044 11:26-0400Body fzorei846.3 cm Moo Olsen DMD, MD Work Phone: [phone]tFnuqqs82-20-0413 11:26-0400Body mass index (BMI) [Ratio]30.51 kg/l0UdrlleMoo Olsen DMD, MD Work Phone: [phone]xSkszhq81-19-9761 11:26-0400Body phdqxu02.22 kg Moo Olsen DMD, MD Work Phone: [phone]nVejedp97-54-2724 09:00-0400Body .3 cm Radha Evans YJDiqmbJvrzss33-49-9763 09:00-0400Body mass index (BMI) [Ratio] 30.51 kg/m4Vyipormarion Evans AJGfngoQfbfuk77-03-1286 09:00-0400Body ylrpnq19.22 kg Radha Evans IRYkqsoVljpnp23-77-0204 09:00-0400Body maugal419.3 cmCatherkee MuñozOur Lady of Lourdes Memorial HospitalVROqcgfSiwwja18-84-3599 09:00-0400Body mass index (BMI) [Ratio]30.64 kg/s8Xbqlkmnsckee Martins CWJnqjcOenzji67-71-0034 09:00-0400Body gisfgb44.5 kg Daciamyke Martins KMYpaktIcghcw08-64-3502 10:46-0400Body fblomf086.3 cmAjennifer Farooq [employer] Work Phone: [facility] LouisGbubkealxk97-67-8421 10:46-0400Body mass index (BMI) [Ratio]30.31 kg/o0QhyzdmAmy Farooq [employer] OPERATOR [employer] Work Phone: [facility] LouisKeleyiebmt35-35-0325 10:46-0400Body .77 kgAmy Farooq [employer] OPERATOR [employer] Work Phone: [facility] CenterIbbpcfxdep16-05-5597 10:46-0400Diastolic blood rflnwroh07 mm[Hg]Amy Farooq [employer] OPERATOR [employer] Work Phone: [facility]OS[facility] CenterDbsqskewud59-09-6195 10:46-0400Systolic blood idqvqpsp338 mm[Hg]Amy Farooq [employer] OPERATOR [employer] Work Phone: [facility]OS[facility] CenterClvorzxiks40-78-8939 08:30-0500Body .3 cmMoo Olsen DMD, MD Work Phone: [phone]hAhyqsu28-84-9986 08:30-0500Body mass index (BMI) [Ratio]31.98 kg/y4LywwylMoo Olsen DMD, MD Work Phone: [phone]lAovydv55-29-7442 08:30-0500Body ydpuhv68.4 kg Moo Olsen DMD, MD Work Phone: [phone]vUeqkpo51-32-9441 09:53-0500Body .4 cm Amy De Leonarnold [employer] OPERATOR [employer] Work Phone: [facility] LouisGtlqykrnpp85-07-1165 09:53-0500Body mass index (BMI) [Ratio]33.98 kg/g5DfwaatAmy De Leonarnold [employer] OPERATOR [employer] Work Phone: [facility] LouisMrvqmgwngu52-93-9084 09:53-0500Body .93 kgAmy Orantescandie [employer] OPERATOR [employer] Work Phone: [facility] LouisXayvtrernz26-53-7655 16:00-0400Diastolic blood flpbczum85 mm[Hg]Stacie Torres DMD Work Phone: [phone]hYkyuyn22-47-8623 16:00-0400Heart rate84 /min Stacie Torres DMD Work Phone: [phone]xYsjyop31-50-2449 16:00-0400Respiratory rate22 /minJennlaxmi Brian DMD Work Phone: [phone]jPthnvf96-56-4585 16:00-0897BnK8% (BldA) [Mass fraction]96 %Stacie Torres DMD Work Phone: [phone]iUntwea91-26-2959 16:00-0400Systolic blood vqiwzmkz83 mm[Hg]Stacie Torres DMD Work Phone: 1(429) [phone]iNfogsw76-68-4785 15:56-0400Body wbbeqocoiwy33.1 [degF]Stacie Jaramillorafael DMD Work Phone: [phone]eJokwcp41-63-4452 11:04-0400Body dreenj448.3 cm Stacie Torres DMD Work Phone: [phone]vWgfwdk80-95-3870 11:04-0400Body mass index (BMI) [Ratio]31.98 kg/x2MrrvcsnyStacie Torres DMD Work Phone: [phone]wYttvpw10-67-6771 11:04-0400Body eygigp81.4 kg Stacie Torres DMD Work Phone: [phone]iTordxc98-00-7658 10:22-0400Body .4 cm Amy Gillarnold [employer] OPERATOR [employer] Work Phone: [facility] LouisWgmlkpmrtk33-94-4945 10:22-0400Body mass index (BMI) [Ratio]33.98 kg/r5RemyolAmy De Leonrejir [employer] OPERATOR [employer] Work Phone: [facility] LouisTtrgrcsdei60-51-0303 10:22-0400Body .93 kgAmy Orantesr [employer] OPERATOR [employer] Work Phone: [facility] LouisQiclolcibp50-20-1900 10:22-0400Diastolic blood rprijysr56 mm[Hg]Amy De Leonrejir [employer] OPERATOR [employer] Work Phone: [place] [address]Flvfapwldc16-42-2462 10:22-0400Systolic blood nokrxhjy929 mm[Hg]Amy Orantesr [employer] OPERATOR [employer] Work Phone: [facility] LouisBndybnrxcw72-20-7307 20:36-0400Heart rate75 /min Víctor Elliott [employer]ATHER [employer]ER Work Phone: [phone]fIensyq11-36-9186 10:34-0400Body dlenlx907.3 cm Víctor Elliott [employer] Work Phone: [phone]dVtnvua91-13-7155 10:34-0400Body mass index (BMI) [Ratio]31.98 kg/e7ChvpeaVíctor Elliott [employer] Work Phone: [phone]tPbsjmt81-80-3367 10:34-0400Body tiwhmszlqog53.91 [degF]Víctor Elliott [employer] Work Phone: [phone]pWseqyl68-69-0795 10:34-0400Body yjvire55.4 kg Víctor Elliott [employer] Work Phone: [phone]hPpgpba63-36-3384 10:34-0400Diastolic blood sxyubzxf73 mm[Hg]Víctor Elliott [employer] Work Phone: [phone]dZavxby68-77-6793 10:34-0400Heart rate86 /min Víctor Elliott [employer] Work Phone: [phone]aFgpskm47-18-5843 10:34-0400Respiratory rate16 /minEdsamia Elliott LEATHER [employer]RE ETCHER Work Phone: [phone]bDtmvie97-34-1705 10:34-0981QrR2% (BldA) [Mass fraction]99 %Víctor Elliott [employer]ATHER [employer]CHER Work Phone: [phone]uZnwexk29-45-0784 10:34-0400Systolic blood lrbsccuz73 mm[Hg]Víctor Elliott LEATHER [employer]ER Work Phone: [phone]iApspfx62-29-5591 09:00-0400Diastolic blood puhsbyxi80 mm[Hg]Jessee Nina [facility]05-01-2024 09:00-0400Heart rate70 /minJessee Nina [facility]05-01-2024 09:00-0400Mean blood yrjrektv91 mm[Hg]Jessee Nina [facility]05-01-2024 09:00-0400 Systolic blood nrvkajgx14 mm[Hg]Jessee Nina [facility]05-01-2024 08:50-0400Blood Pressure LocationMobriana Nina [facility]05-01-2024 08:50-0400 Diastolic blood clqdfnoh95 mm[Hg]Mohamad Mouchli [address] [place], [place] 1973605-01-2024 08:50-0400Heart rate72 /minMohamad Mouchli [address] [place], [place] 1973605-01-2024 08:50-0400Mean blood qinaoopb90 mm[Hg]Mohamad Mouchli [address] [place], [place] 1973605-01-2024 08:50-0400 Respiratory rate12 /minMohamad Mouchli [address] [place], [place] 1973605-01-2024 08:50-5341NrU9% (BldA) [Mass fraction]96 %Mohamad Mouchli [address] [place], [place] 1973605-01-2024 08:50-0400 Systolic blood mm[Hg]Mohamad Mouchli [address] [place], [place] 1973605-01-2024 08:45-0400 Diastolic blood mm[Hg]Mohamad Mouchli [address] [place], [place] 1973605-01-2024 08:45-0400Heart rate86 /minMohamad Mouchli [address] [place], [place] 1973605-01-2024 08:45-0400Mean blood exicckxx55 mm[Hg]Mohamad Mouchli [address] [place], [place] 1973605-01-2024 08:45-0400 Respiratory rate17 /minMohamad Mouchli [address] [place], [place] 1973605-01-2024 08:45-1865XbS7% (BldA) [Mass fraction]97 %Mohamad Mouchli [address] [place], [place] 1973605-01-2024 08:45-0400 Systolic blood xkimnwjk53 mm[Hg]Gersond Alli [facility]05-01-2024 08:35-0400Body lsvwyemhvdo13.06 [degF]Rosetteamad Mouchli [facility]05-01-2024 07:39-0400Body fxmsusyztdg02.06 [degF]Gersond Mouchli [address] [place], [place] 1973604-25-2024 09:10-0400Blood Pressure LocationMohamad Rejiuchli 215-9004Jxscmf-Nfhoq[address] [place], [place] 6707204-25-2024 09:10-0400Diastolic blood vgyhncza94 mm[Hg]Gersond Mocarlyleli 075-6722Nnrolc-Lyhjv[address] [place], [place] 6707204-25-2024 09:10-0400Heart rate91 /minRejihamad Mouchli 575-3365Jipvsl-Hxqgb[address] [place], [place] 6707204-25-2024 09:10-0400Respiratory rate16 /minMohamad Mouchli 567-1711Eqwrlw-Ywqdo[address] [place], [place] 6707204-25-2024 09:10-0400Systolic blood hkjuofdd493 mm[Hg]Gersond Alli 045-0261Bwtvfq-Prvbi[address] [place] [address] [facility] Encounters Encounter DateEncounter TypeCare ProviderFacilityStart: 01-25-2025 End: 50-48-9935Lkvzhix encounter procedureJustnoam Olsen DMD, MD Work Phone: [facility] SurgeryComment on above: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)Start: 24-24-7908linlwytzozEMQSUAJ PROVIDERFacility:METROHealthStart: 01-18-2025 End: 78-40-0620dxuorttdvhIWZZVN CLEMOWFacility:METROHealthStart: 01-18-2025 End: 29-18-3601Bzidkfhdiu hospital visit by physicianMoo Olsen DMD, MD Work Phone: [facility] ORComment on above: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)Start: 01-17-2025 End: 57-25-2169Mtjgzpoxk encounterVinluiza Garciao RNMetroHealth Pre-Admission TestingStart: 01-09-2025 End: 26-47-7046Dklezntcp encounterJulienne Ty RNMetroHealth Pre-Admission TestingStart: 01-04-2025 End: 27-35-2601Vuaijkc evaluation of patient and reportSmartinez JuddKelly Evans RN [facility] [place] Pre-Admission TestingComment on above:Pre-op evaluation (Primary Dx)Start: 01-04-2025 End: 70-40-6400Onxndpbsrwmeo examination doneShmarion JuddKelly Evans RNMetroHealth Start: 72-60-1399kcogsfigftTANVMHY PROVIDERFacility:METROHealthStart: 01-04-2025 Encounter for other preprocedural examinationSRAMOSMARY WhaleyKelly TORREZhe [facility] SystemStart: 11-02-2024 End: 38-28-2629Arrwwx encounterMoo Olsen DMD, MD Work Phone: [facility] SurgeryStart: 11-02-2024 End: 13-97-6936Vhxpltvkh encounterGabriela Kerns RN Work Phone: [facility] LineComment on above:Cancel Appointment Start: 10-28-2024 End: 26-06-9763Rcqzpazvr encounterMelwing Tabor RNMetroHealth Pre-Admission TestingComment on above:PAT (Surgery information)Start: 10-27-2024 End: 37-78-4412Rnwzbihdq encounterJulienne Ty RNMetroHealth Pre-Admission TestingStart: 10-26-2024 End: 36-52-2906Gpqcoztpw encounterJulienne Ty RNMet[facility]Health Pre-Admission TestingStart: 10-15-2024 End: 02-30-2816Sbfkgpeem encounterUrssussy Evans RNMetroHealth LineComment on above:message to providerStart: 10-12-2024 End: 28-05-4838Jotwlgd evaluation of patient and reportDacia Martins RN [facility] [place] Pre-Admission TestingComment on above:Pre-op evaluation (Primary Dx)Start: 10-12-2024 End: 47-25-2724Bpwnpkzyizrkw examination doneCatchristoph Martins RNMetSalem [facility] Start: 24-50-7820lfxsnwxcwiXXWKCB CLEMOWFacility:METROHealthStart: 09-29-2024 End: 38-76-6731Uofrxj Belem Farooq [employer] UP OPERATOR [employer] Work Phone: aNA BELLEVUEStart: 09-29-2024 End: 70-70-0652Jnowca Belem Farooq [employer] UP OPERATOR [employer]ICAL Work Phone: ana BELLEVUEStart: 09-29-2024 End: 60-92-6249Quwmyf outpatient visit [facility] hospitalAngeafia Farooq [employer] UP OPERATOR [employer]ICAL Work Phone: aNA BELLEVUEComment on above:Seizure disorder (CMS/HCC) (Primary Dx); Cerebral palsy, unspecified type (CMS/HCC); Mental impairment (CMS/HCC); Other conduct disordersStart: 09-29-2024 End: 37-95-9344biukiqvlndBNZFYF GILLMORNot AvailableStart: 07-13-2024 End: 96-19-8892Tygkakvhi encounterMoo Olsen DMD, MD Work Phone: [facility] SurgeryComment on above:pt requested callStart: 07-13-2024 End: 15-76-0891Dhbvvrt encounter procedureMoo Olsen DMD, MD Work Phone: [facility] Oral SurgeryComment on above:Caries (Primary Dx); 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; Body mass index (BMI) 31.0-31.9, adultStart: 07-13-2024 End: 62-73-7524pjexhtokyuHUMERU CLEMOWFacility:[facility]OSPITALROHealthStart: 04-07-2024 End: 50-67-0490Voklwnmercedes Farooq [employer] UP OPERATOR [employer]ICAL Work Phone: [facility] ROUTEStart: 04-07-2024 End: 93-65-4291Jnvoop flowsJerry De Leonarnold [employer] UP OPERATOR [employer]ICAL Work Phone: [facility] ROUTEStart: 04-07-2024 End: 33-80-9569ttakrlzmyjHLRDQJ GILLARNOLDNot AvailableStart: 04-07-2024 End: 34-74-9602Nhtxqu outpatient visit 25 minutesAngeafia Oseas [employer] UP OPERATOR [employer]ICAL Work Phone: noKETTERING [facility]ALTH HAMILTON ROUTEComment on above:Seizure disorder (CMS/HCC) (Primary Dx); Cerebral palsy, unspecified type (CMS/HCC); Mental impairment (CMS/HCC)Start: 02-03-2024 End: 66-78-1034MiqenqJdcrqvi Yoris Perez DDS Work Phone: [employer] [facility] DentistryComment on above:RefillStart: 01-11-2024 End: 89-28-7828Xpgbgfbtu encounterStacie Torres DMD Work Phone: [employer] DentistryComment on above:Referral needs placed for OSStart: 01-08-2024 End: 40-92-2331Nljjnmo encounter procedureStacie Torres DMD Work Phone: [employer] DentistryComment on above:ArrivedStart: 01-08-2024 End: 95-13-1417Inzxptfyfg hospital visit by Melania Torres DMD Work Phone: [employer] [facility] [facility] SurgeryStart: 01-06-2024 End: 69-85-8877Ayoiakequ encounterBronwyn Pradhan RNMetroHigh[facility] Pre-Admission TestingComment on above:Pre-surgical Evaluation (DD adult dental restorations 01/07 under [facility] at [place]. PAT completed - consents obtained. MARY RN spoke to Cassidy, confirmed NPO except water only until 0900 (Cassidy stated pt does not like and will not drink water), [place] address, and 1100 arrival time/)Start: 01-05-2024 End: 80-25-0009Nnvvny flowsheetAngela Gillmor [employer] Work Phone: noMS NE NEUROStart: 01-05-2024 End: 10-33-1538Tmdtse flowsDimitriosafia Haleyarnold [employer] Work Phone: NOEA NE NEUROStart: 01-05-2024 End: 61-75-2434Lgfnfr outpatient visit 25 minutesAngeafia Farooq [employer] O[employer] Work Phone: noms NE NEUROComment on above:Seizure disorder (CMS/HCC) (Primary Dx); Mental impairment (CMS/HCC); Other conduct disorders (CMS/HCC); Cerebral palsy, unspecified type (CMS/HCC); Weight loss; Anorexia; Other bipolar disorder (CMS/HCC)Start: 01-05-2024 End: 60-73-3110ktxxcshcbgBRCROC GILLMORNot AvailableStart: 12-28-2023 End: 80-08-0023Snjbmlenp encounterJulilauren [facility] Pre-Admission TestingStart: 12-25-2023 End: 33-33-3729Krivubc encounter procedureVíctor Elliott LEATHER CARVER-RE ETCHER Work Phone: [facility] Pre-Admission TestingComment on above:Preop testing (Primary Dx); Body mass index (BMI) 31.0-31.9, adultPreop testing (Primary Dx); Body mass index (BMI) 31.0-31.9, adult; Abnormal electrocardiogram (ECG) (EKG); Abnormal electrocardiogram (ECG) (EKG)Start: 12-25-2023 End: 84-15-6022Mgkmoqr encounter Tatyana Elliott APRN-RE ETCHER Work Phone: [facility] Work Phone: start: 09-23-2023 End: 87-93-3960zfslywyupsCnimrez A. MouchliFacility:FTMCStart: 09-23-2023 End: 25-45-4375Jgdfmgw encounter procedureJessee Nina [facility] [place] Start: 09-16-2023 End: 78-33-2255enerjipuvqPchsurb A. MouchliFacility:FTMCStart: 09-16-2023 End: 70-05-3916Nymnjrm encounter procedureMohamad A. Mouchli [facility] Start: 09-10-2023 End: 19-73-4080edbnbkuweqBwnjfvp A. MouchliFacility:[facility] DHStart: 09-10-2023 End: 21-17-4716Aiciyxu encounter procedureMohamad A. Mouchli [phone]-HaqoxMount Carmel [facility] Start: 29-93-4535qniycncyqiSflklew Kelle Facility:[facility] DHStart: 04-01-2023 End: 15-57-8063dcfjtbfmciKYAFJP HERRINGFacility:FTMCStart: 04-01-2023 End: 24-65-1147Chv Drop offDANIEL ARGUETA [facility] [place] Start: 01-14-2023 End: 32-07-3697czwufixqygANASBH HERRINGFacility:FTMCStart: 01-14-2023 End: 18-58-8875Daj Drop offDANIEL ARGUETA [facility] Start: 11-01-9257bgtqtrntojNK STEF A ARGUETA Facility:K8Bnmip: 09-16-2022 End: 00-22-7151tdlsnfnnfwJJ STEF A HERRINGFacility:L2Mkner: 08-19-2022 End: 40-39-7072tenxmlytrrJH STEF A HERRINGFacility:F5Idyzz: 07-22-2022 End: 98-80-6372Qlvbjjp encounter procedureKary Ku DDS Work Phone: [facility] DentistryStart: 74-12-3168Qedqji encounterRm Goldman DDS Work Phone: [facility]HealthStart: 04-29-2022 End: 73-28-4232jsscjssnkeTV STEF ARGUETAFacility:H1 Procedures DateProcedureProcedure DetailPerforming ClinicianStart: 22-76-6769Ucqxl test visual color cmprsn methsForrest Quick DMD Work Phone: Start: 14-83-1122Gxehkjmolnfl chorionic quantitative Justin Shin MD Work Phone: start: 14-01-7901Ptbje count complete automatedEdward Earl LEATHER CARVER-RE ETCHER Work Phone: start: 13-63-2459Ezh routine ecg w/least 12 lds trcg only w/o i&rEdward Earl LEATHER CARVER-RE ETCHER Work Phone: start: 74-61-8880RgkhobbpfghbikoehfgelamurqTxxhpkq Moarmando Plan of Treatment DateCare ActivityDetailAuthorStart: 36-02-2233Uydnhbcp (RZV) Vaccine (1 of 2) Shingles (RZV) Vaccine (1 of 2)[facility]HealthStart: 48-04-6595Dlrcggy vaccination Tetanus (Td or Tdap) BoosterMetroHealthStart: 30-64-3472Dvvqzbbft vaccination Influenza Vaccine (#1)[facility]HealthStart: 01-25-2025 End: 90-35-1919Gtnafnd encounter zgebntgyq05/10/2025 10:10 AM EDT Office Visit [facility] [address] [place] [address] Moo Olsen DMD, MD [address] [place] [address] [facility] SurgeryStart: 01-18-2025 End: 56-16-9749Qlcxwjhxr to same day surgery center[address] ORComment on above:EXTRACTION, TEETH: #12,#13,#14Start: 01-18-2025 End: 32-10-4739Rnqqcsieov consultation[address] ORStart: 95-08-9155Fpphwgatjc hospital visit by physician[address] OR Start: 01-18-2025 End: 08-55-8796Nomnqeud procedure dentoalveolar structuresMet[address] Surgery CenterStart: 01-18-2025 End: 87-64-8520Uysyvawyf to same day surgery jrysum4101/18/2025 10:58 AM EDT - 01/18/2025 12:21 PM EDT Surgery [address] [facility] [facility] [place] [address] [place] [address] Moo Olsen DMD, MD [address] [place] [address] EXTRACTION, TEETH: #12,#13,#14[address] ORComment on above:EXTRACTION, TEETH: #12,#13,#14Start: 01-18-2025 End: 76-54-9247Jkhurceezo tuigttijmpda55/03/2025 10:58 AM EDT Anesthesia Event [address] [facility] [facility] [place] [address] [place] [address] Jazmin Treviño MD [address] [place] [address] ORStart: 15-31-4058Msyatppwoa hospital visit by lawhhpovs43/03/2025 10:58 AM EDT Hospital Encounter [address] [facility] [facility] [place] [address] [place] [address] Moo Olsen DMD, MD [address] [place] [address] [facility] [address] [facility] ORStart: 01-18-2025 End: 01-85-3228Vfpspuam procedure dentoalveolar structuresEXTRACTION, TOOTH Routine scheduled Caries 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 01/18/2025 10:58AM EDTWEST 150 [facility] SURGERY CENTERStart: 01-04-2025 End: 75-65-1864Izfxhcv evaluation of patient and hzubah4201/04/2025 9:30 AM EDT Nurse Visit [facility] [address] [place] [address] Radha Evans RN [address] [address]HqyjfRcfamgK[facility] Start: 11-17-2024 End: 21-12-5876Lltnpki encounter tvlrbnfod65/03/2025 9:40 AM EDT Office Visit [facility] [address] [place] [address] Moo Olsen DMD, MD [address] [place] [address] [facility] SurgeryStart: 11-16-2024 End: 85-66-9863Hijfrws encounter /02/2025 11:00 AM EDT Procedure Visit [facility] [address] [place] [address] Maria Betancur DDS [address] [place] [address] [address] [facility] Start: 11-14-2024 End: 54-24-4919Jfxxyeo encounter /30/2025 11:30 AM EDT Office Visit [facility] [address] [place] [address] Moo Olsen DMD, MD [address] [place] [address] [facility] SurgeryStart: 11-02-2024 End: 04-59-4988Aoiiblsum to same day surgery [facility] [address] Surg Ctr ORComment on above:EXTRACTION, TEETH: #12,#13,#14Start: 11-02-2024 End: 13-26-5569Donjbcirxp consultationMet[address] Ctr ORStart: 17-25-7889Pbltqcsizx hospital visit by physician[address] [facility] OR Start: 11-02-2024 End: 74-62-1415Hjurbfcx procedure dentoalveolar structures[address] SURGERY CENTERStart: 11-02-2024 End: 07-21-5035Aqzzbbuvk to same day surgery swgfku2611/02/2024 10:16 AM EDT - 11/02/2024 11:39 AM EDT Surgery [address] [facility] [place] [address] [place] [address] Moo Olsen DMD, MD [address] [place] [address] EXTRACTION, TEETH: #12,#13,#14[address] ORComment on above:EXTRACTION, TEETH: #12,#13,#14Start: 11-02-2024 End: 49-41-2869Bngxyvmltz nizlafqdprpe11/18/2025 10:16 AM EDT Anesthesia Event [address] [facility] [place] [address] [place] [address] Jazmin Treviño MD [address] [place] [address] ORStart: 21-40-3453Mkmwlcfvht hospital visit by cauobvovg83/18/2025 10:16 AM EDT Hospital Encounter [address] [facility] [facility] [place] [address] [place] [address] Moo Olsen DMD, MD [address] [place] [address] ORStart: 11-02-2024 End: 13-09-1944Lgeqgben procedure dentoalveolar structuresEXTRACTION, TOOTH Routine scheduled Caries 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 11/02/2024 10:16AM EDTWEST [address] [place] [address] AND SURGERY CENTERStart: 09-29-2024 End: 08-40-6424Ioicdol encounter procedureNOKETTERING HEALTH HAMILTON ROUTEComment on above:ArrivedStart: 04-07-2024 End: 42-92-5297Zboxoes encounter snxepgkrn31/21/2024 9:40 AM EST Office Visit [facility] [address] [place] [address] Amy Farooq, ANGELIC [address] [place], [place] [facility] ROUTEStart: 37-11-7094Tyfnybwsj vaccinationInfluenza Vaccine (#1)[facility]HealthStart: 86-24-0123WFTDI-19 Vaccine ( season)COVID-19 Vaccine ()[facility]HealthStart: 98-27-3078Jrmnfhohe vaccinationInfluenza Vaccine (#1)[facility]HealthStart: 01-08-2024 End: 25-04-7618KXNTPA RESTORATIONSDENTAL RESTORATIONS Routine scheduled Caries 01/08/2024 2:10 PM EDTMetroHealthStart: 01-08-2024 End: 81-04-5489Lxncmqelc to same day surgery nxxash6401/08/2024 11:28 AM EDT - 01/08/2024 1:23 PM EDT Surgery [facility] [address] [place] [address] Stacie Torres, DMD [address] [place] [id number] DENTAL RESTORATIONS [facility]ulatory SurgeryComment on above:DENTAL RESTORATIONSStart: 01-08-2024 End: 23-26-5092YQFPLB RESTORATIONSDENTAL RESTORATIONS Routine scheduled Caries 01/08/2024 11:28 AM EDTMetroHealthStart: 97-80-4246Zhghjmprmx hospital visit by /23/2024 11:28 AM EDT Hospital Encounter [facility] [address] [place] [address] Stacie Torres DMD [address] [facility] [address] [facility] SurgeryStart: 01-08-2024 End: 43-68-8383Toztjskbm to same day surgery [facility] Ambulatory SurgeryComment on above:DENTAL RESTORATIONSStart: 01-08-2024 End: 61-30-2481FIYSQB RESTORATIONSMetroHealthStart: 33-68-7153Kfqlzurskq hospital visit by physicianK[facility] Ambulatory SurgeryStart: 01-08-2024 End: 37-62-2158Vxwlhvl encounter procedureMetroHighland District Hospital DentistryStart: 01-05-2024 End: 24-05-4118Nxzthqafyntdb levelLevetiracetam level Lab Routine Seizure disorder (CMS/HCC) Expected: 01/05/2024 (Approximate), Expires: 01/04/2025[facility] HealthcareComment on above:Expected: 01/05/2024 (Approximate), Expires: 01/04/2025Start: 01-05-2024 End: 86-17-8658Hjibyjai acid level, totalValproic acid level, total Lab Routine Seizure disorder (CMS/HCC) Expected: 01/05/2024 (Approximate), Expires: 01/04/2025[facility] Work Phone: comment on above:Expected: 01/05/2024 (Approximate), Expires: 01/04/2025Start: 17-62-8369BYBZA-19 Vaccine ( season)COVID- 19 Vaccine ( season)[facility]Sal[facility] CenterStart: 02-81-6326Avusexf vaccination Tetanus (Td or Tdap) BoosterMetroHealthStart: 07-22-2022 End: 26-16-0919Skzojjm encounter pwrkuprkc83/07/2023 Procedure Visit Dentistry Diana Horan RDH [address] [facility] [facility] [address] [facility] DentistryStart: 02-15-2022 Influenza vaccinationInfluenza Vaccine (#1)[facility]HealthStart: 58-47-5256Tzrjqkrrk for malignant neoplasm of cervixNOMS HealthcareStart: 28-10-7486CQC Vaccine (optional start 27-45 years)HPV Vaccine (optional start 27-45 years)[facility] Start: 73-68-6229Jkjdcfytf for malignant neoplasm of cervixPap SmearMetroHealth Start: 60-11-7147Mpdyjrfjv A (HAV) Vaccine (optional start 19+ years)Hepatitis A (HAV) Vaccine (optional start 19+ years)[facility]HealthStart: 83-66-5602Wqlauychw B vaccinationHepatitis B (HBV) Vaccine (1 of 3 - 19+ 3-dose series)[facility] Start: 99-40-6266Hdherewns C screeningHepatitis C AntibodyMetroHealthStart: 13-50-9413ROQ screeningHIV TestMetroHealthStart: 62-91-9488Btuwblxbg for malignant neoplasm of breastMetroHealthStart: 40-96-6285Gmbshxd stimulating hormone measurementTSHMetroHealthEcg routine ecg w/least 12 lds trcg only w/o i&rEKG 12 LEAD - PERFORM MUSE Routine Preop testing Ordered: 12/25/2023[employer] Work Phone: comment on above:Ordered: 12/25/2023 End: 80-57-9221Tvrlc test visual color cmprsn methsURINE HCG-IN OFFICE Lab Routine One time for 1 Occurrences starting 01/08/2024 until 01/08/2024[employer] Work Phone: comment on above:One time for 1 Occurrences starting 01/08/2024 until 01/08/2024 Immunizations Immunization DateImmunizationNotesCare AbdfmljfXdnhldzo25-52-4642HUQZC-54 Vaccine (12+ yrs, Moderna) mRNA, spike protein, LNP, pres. 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 LouisQbpbyxqtqc24-89-1306eimhmfjfx virus vaccine, unspecified formulationMohamad Mouchli 823-2715Zertvm-IeqciMer[facility] Health [facility]10-18-2023 SARS-COV-2 (COVID-19) vaccine, mRNA, spike protein, LNP, PF, adam-sucrose, 30 mcg/0.3 mLAngela Oseas BORING MILL SET UP OPERATOR VERTICAL Work Phone: noSaint Mary's Health CenterWqwylwlukd33-14-6184KZDT-WtV-4 (COVID-19) mRNAMUL.ORD![id number] Mouchli 171-7245Xrewjs-JlpcvMercy Health Allen Hospital03-30-2023 tetanus toxoid, reduced diphtheria toxoid, and acellular pertussis vaccine, adsorbedMohamad Mouchli 114-5526Jjxldb-AwaicMercy Health Allen Hospital10-19-2022 influenza virus vaccine, unspecified formulationMohamad Mouchli 056-8493Habegp-Qljbj[address] [place], [place] [address]10-19-2022 SARS-CoV-2 (COVID-19) mRNAMUL.ORD![id number] Mouchli 435-6000Ulsvnr-KxxxeMount Carmel Health System Digestive HealthComment on above:Result Comment: 2023-09-09: WKJZAM54-97-5490tueaaziwj, injectable, quadrivalent, preservative freeRm Goldman DDS Work Phone: [phone]xRzfpsb12-61-5912KFWG-SgY-1 (COVID-19) mRNA BNT- 162b2 vaxMohamad Mouchli [phone]-LjrxlMount Carmel Health System Digestive HealthComment on above:Result Comment: 2023-09-09: IVT691-68-1789gvbqaayeh virus vaccine, unspecified formulationJuan Susi DDS Work Phone: [phone]-AizbuMount Carmel Health System Digestive Bgifhj61-16-0950 Pfizer (12+ yrs) SARS-COV-2 (COVID-19) vaccine, mRNA, spike protein, LNP, pres. free, 30 mcg/0.3mL dose (PNT=129)Rm Goldman DDS Work Phone: metroHealthComment on above:Result Comment: 2023-09-09: ZZRWE77-36-1550Eokitz (12+ yrs) SARS-COV-2 (COVID-19) vaccine, mRNA, spike protein, LNP, pres. free, 30 mcg/0.3mL dose (TXO=183)Rm Goldman DDS Work Phone: metroHealthComment on above:Result Comment: 2023-09-09: YTFDA21-48-3233seehfodzw virus vaccine, unspecified formulation Mohamad Mouchli [phone]-TimonMount Carmel Health System Digestive Knhwzh82-00-3671 influenza, injectable, quadrivalent, preservative freeJuan Susi DDS Work Phone: [phone]cNhowsv16-28-2322bcqwdiupe virus vaccine, unspecified formulationMohamad Mouchli 473-2657Kyjipc-XngggMercy Health Allen Hospital10-25-2019 influenza, injectable, quadrivalent, preservative freeJuan Susi DDS Work Phone: [phone]uQbrskg82-99-6043koxjraper virus vaccine, unspecified formulationMohamad Mouchli [phone]-StnwiMount Carmel Health System Digestive Ksdvof20-99-3195 influenza, injectable, quadrivalent, preservative freeJuan Susi DDS Work Phone: [phone]xXoxtce46-53-6034jhzyfluxd virus vaccine, unspecified formulationMohamad Mouchli 197-1092Ejykxj-XjjlxMount Carmel Health System Digestive Fydsqb64-68-6069 influenza, injectable, quadrivalent, contains preservativeJuan Susi DDS Work Phone: [phone]tEwucaf23-11-0825yqnmkshzf virus vaccine, unspecified formulationMohamad Mouchli 930-8340Sbcpjw-CsbvqMount Carmel Health System Digestive Jszoqp64-69-8326 influenza, seasonal, injectableJuan Susi DDS Work Phone: [phone]uFxlmgq16-85-4380anzzhtvzs virus vaccine, unspecified formulationMohamad Mouchli [phone]-RcokjMercy Health Allen Hospital10-22-2015 influenza, injectable, quadrivalent, preservative freeBisian Susi DDS Work Phone: [phone]rKzhqbj34-36-6911bwsqmbcdn virus vaccine, unspecified formulationMohamad Mouchli [phone]-PvoljMercy Health Allen Hospital11-06-2014 influenza, injectable, quadrivalent, preservative freeBisian Susi DDS Work Phone: [phone]zKnpeog35-04-4659ovrsxllvj virus vaccine, unspecified formulationMohamad Mouchli [phone]-ItbntMercy Health Allen Hospital10-29-2013 influenza, seasonal, injectableJuan Susi DDS Work Phone: [phone]wRjioau01-35-9277twxdwvg toxoid, reduced diphtheria toxoid, and acellular pertussis vaccine, adsorbedJuan Susi DDS Work Phone: [phone]mDgkwwm95-62-5135soriwrnrz virus vaccine, unspecified formulationMohamad Mouchli 294-5869Amlkir-YsxwbMercy Health Allen Hospital10-24-2012 influenza, seasonal, injectableJuan Susi DDS Work Phone: [phone]yDvuxim81-04-9776qeartxsld virus vaccine, unspecified formulationMohamad Mouchli 218-8017Fvralt-GcjhjMercy Health Allen Hospital09-14-2011 influenza, seasonal, injectableJuan Susi DDS Work Phone: [phone]iRoesib27-41-5771zfkihecjj virus vaccine, whole virusRm Goldman DDS Work Phone: [phone]ePdzxjz26-31-2613vjkeqdjsr, wholeMobriana Melendezli 895-6111Wcrfij-CklbvMercy Health Allen Hospital11-18-2009 novel vgxxvbdhh-T8X2-86, preservative-free, injectableRm Goldman DDS Work Phone: [phone]sSaouyi23-10-5203rlbtzlzot virus vaccine, whole virusRm Goldman DDS Work Phone: [phone]lBvzqmk74-78-2703blypkhubt, wholeMohamad Mouchli 520-2840Hhzcek-KewkbMercy Health Allen Hospital05-17-2007 meningococcal ACWY vaccine, unspecified formulationJessee Rejiarmando 609-0100Nfzvdv-NjjzbMercy Health Allen Hospital05-17-2007 meningococcal polysaccharide (groups A, C, Y and W-135) diphtheria toxoid conjugate vaccine (MCV4P)Rm Goldman DDS Work Phone: [phone]oHrfflj58-59-8697HK(adult) unspecified formulation; Translations: [Td(adult) unspecified formulation]Rm Goldman DDS Work Phone: [phone]xKrkrvt47-10-4112gyewlpljxb, tetanus toxoids and pertussis vaccineRm Goldman DDS Work Phone: [phone]xNnelzs99-47-8316fbhdurfke poliovirus vaccine, live, oralRm Goldman DDS Work Phone: [phone]ePnrryv83-32-2522vffycspwm poliovirus vaccine, live, oralRm Goldman DDS Work Phone: [phone]-541375RmyybPrkssy11-64-3438pygrbysxauw influenzae type b vaccine, conjugate unspecified formulationRm Goldman DDS Work Phone: [phone]vUhjpaf90-05-6923Vma, unspecified formulation Jessee Nina [phone]-KpxvcMount Carmel Health System Digestive Awythh18-35-5303 diphtheria, tetanus toxoids and pertussis vaccineRm Goldman DDS Work Phone: YebcqJakkds89-827388HulakEvxvdu67-82-6473btenenljz poliovirus vaccine, live, oralRm Goldman DDS Work Phone: KpnnnEpwkjs28-820068VwywiKceosv18-36-6913kukxjxd, mumps and rubella virus vaccineRm Goldman DDS Work Phone: NihttZbretg89-976811MkyteEepfqg95-34-5276wjxgvobtp poliovirus vaccine, live, oralRm Goldman DDS Work Phone: XxggbIkvvjk13-942733LhikrKhpwvu50-62-3484etmhmuznnu, tetanus toxoids and pertussis vaccineRm Goldman DDS Work Phone: IgdtlVerysj85-419894HfmfbMszsvu20-36-6112pgaklhrkry, tetanus toxoids and pertussis vaccineRm Goldman DDS Work Phone: EuxcuNjspjd73-152729FxueqIydwca74-87-4591cfexjwarc poliovirus vaccine, live, oralRm Goldman DDS Work Phone: NtvcpJaqqqb31-899300AtcyjPjlmwj78-90-6791lgzzkqegsi, tetanus toxoids and pertussis vaccineRm Goldman DDS Work Phone: [phone] Payers DatePayer CategoryPayerPolicy [id number] --Stand AloneDENTAL-MEDICAID [id number] 2006Medicaid [id number] 2.16.840.1.163499.3.57[id number] 2.16.840.1.333467.3.57[id number] 2.16.840.1.083508.3.57[id number] 2.16.840.1.046472.3.57[id number] 2.16.840.1.851800.3.57[id number] 2.840.1.735350.3.57[id number] 2.840.1.784015.3.57[id number] 2.840.1.928612.3.57[id number] 2.840.1.738886.3.57[id number] 2.840.1.067265.3.57[id number] 2.840.1.720487.3.57[id number] 2.840.1.677637.3.57[id number] 2.840.1.787528.3.57[id number] 2.16840.1.800337.3.579.2.732 [id number] [id number] 2.16840.1.864163.3.57[id number] 2.16.840.1.960784.3.57[id number] 2.16.840.1.291420.3.57[id number] 2.16.840.1.537609.3.579.2.593 Social History DateTypeDetailFacilityStart: 02-03-2019 End: 56-95-7030Iwtycsr smoking status NHISNever smoked tobaccoMetroHealthStart: 02-03-2019 End: 38-29-8279Htxzmen use and exposureSmokeless tobacco non-userMetroHealth Start: 11-06-2020 End: 69-42-2643Qydcqbi intakeEx-drinker (finding)MetroHealthStart: 79-92-2960Gwp Assigned At BirthNot on fileMetroHealthTobacco smoking statusNo Smoking Status EnteredEast Ohio Regional Hospitaltart: 12-25-2023 End: 13-16-6248Pzf Assigned At BirthFeMercy HospitalTobacco smoking statusNeSumma Health [facility] Digestive HealthStart: 12-25-2023 End: 82-05-6262Rifytwm of Social functionMetroHealthTobacco smoking status NHIS Tobacco smoking consumption unknownNOMS HealthcareStart: 10-12-2024 End: 03-24-5186Sxgmgoo of drug misuse behaviorMisused drugs in past (finding) MetroHealthStart: 18-75-8787ZxkVegfgh (finding)[facility] Functional Status FlfsFthfuszurhQvruxcHfmvfvoe42-59-4758Xgrvelmolb StatusN/[facility]04-25-2024Functional StatusN/[facility] Clinical Notes 07-14-2020 to 01-18-2025 Note Date & PzmjAikjHkdjfeeb22-41-8371 Surgery Surgical operation note* OP Note - Moo Olsen DMD, MD - 01/18/2025 12:24 PM EDT [facility] Division of python engineer OPERATIVE NOTE Name: Vee Sarabia MR#: [id number] ENC#: Data Unavailable Surgical Case #: Data Unavailable Date of Procedure: 01/18/2025 ? 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 ATTENDING SURGEON: Dr. Moo Olsen ? FIRST SURGEON: Dr. Moo Olsen ? SECOND SURGEON: Robin Roque ? ANESTHESIA: General anesthesia via Laryngeal Mask Airway supplemented with 10 mL of a 50/50 mixtureof 1% lidocaine with 1:100,000 epinephrine and 0.5% Marcaine. ? SPECIMENS: N/A ? ESTIMATED BLOOD LOSS: 5 mL. ? IV FLUIDS: 1000 mL. ? FINDINGS: Caries, non-restorable teeth ? DESCRIPTION OF OPERATION: The patient was taken to the operating room on a cart and transferred onto the operating room tableunder [employer] power. The patient was then placed in the supine position. A time-out was conductedto confirm correct patient and procedure to be [...] throat pack removed. Surgical site hemostatic after firmdigital pressure on site for 5-10 minutes. Adjacent [...] entire procedure. There were no complications. Dr. Olsen was present for all critical parts of the procedure. ? ? ? Alfredo Mariee DDS [facility] PGY-3 I was personally present for the michelle portions of the procedure. Moo Olsen DMD, MD [id number] Miscellaneous Notes* OP Note - Moo Olsen DMD, MD - 01/18/2025 12:24 PM EDT [facility] [employer] OPERATIVE NOTE Name: Vee Sarabia MR#: [id number] ENC#: Data Unavailable Surgical Case #: Data Unavailable Date of Procedure: 01/18/2025 ? PREOPERATIVE DIAGNOSIS: 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 [[id number]] ? POSTOPERATIVE DIAGNOSIS: 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 [[id number]] OPERATION: Extraction of erupted teeth #12, 13, 14 ? ATTENDING SURGEON: Dr. Moo Olsen ? FIRST SURGEON: Dr. Moo Olsen ? SECOND SURGEON: Robin Roque ? ANESTHESIA: General anesthesia via Laryngeal Mask Airway supplemented with 10 mL of a 50/50 mixtureof 1% lidocaine with 1:100,000 epinephrine and 0.5% Marcaine. ? SPECIMENS: N/A ? ESTIMATED BLOOD LOSS: 5 mL. ? IV FLUIDS: 1000 mL. ? FINDINGS: Caries, non-restorable teeth ? DESCRIPTION OF OPERATION: The patient was taken to the operating room on a cart and transferred onto the operating room tableunder [employer] power. The patient was then placed in the supine position. A time-out was conductedto confirm correct patient and procedure to be [...] throat pack removed. Surgical site hemostatic after firmdigital pressure on site for 5-10 minutes. Adjacent [...] entire procedure. There were no complications. Dr. Olsen was present for all critical parts of the procedure. ? ? ? Alfredo Mariee DDS [facility] PGY-3 I was personally present for the michelle portions of the procedure. Moo Olsen DMD, MD documented in this [id number] Hospital Discharge instructions* Discharge Instructions* Marybeth Gautam RN - 01/17/2025 5:24 PM EDT Dental extraction Instructions Biting on Gauze to Control Bleeding Bleeding may occur for some time after you extraction. In most cases this bleeding can be easily controlled by placing a piece of clean gauze DIRECTLY over the empty tooth socket. Then make sure thatyou bite firmly on this gauze for 30 [...] done to speak with an oral surgeon. [facility] [phone]. HELPING THE HEALING PROCESS AND STOPPING THE [...] swelling down. Put the ice pack on youface for 10 minutes and then leave it [...] take them as directed; this includes taking allthe antibiotic (or liquid) pills that were prescribed. If you don't finish them completely a serious infection could result. You may have little of no discomfort after the extraction. If you have minor pain then you may wantto take acetaminophen (Tylenol) or ibuprofen (Motrin). It [...] pain relief. It is important that if youdecide to take it you read and understand [...] ensure that they remain safe in the post- operative period. Under NO circumstances should a patient [...] nuno. You should sip slowly over a 15- minute period. When the nausea subsides, you can begin taking solid foods and the prescribed medicine. You may take the anti-nausea medication if prescribed. If the above is not helpful, contact your surgeon. Please if you have any questions or concerns please contact us: [facility] . Ask for the oral communication instructor newspaper subscription solicitor (after hours). bore miner operator Clinic Hours: Mon-Fri 8:30 am to 4:30 pm. * Attachments The following attachments cannot be sent through Care Everywhere. * General anesthesia in adults Discharge instructions (Micronesian) * Managing pain after surgery (Micronesian) * Nausea and vomiting after surgery (Micronesian) documented in this [id number] History and physical note* Robin De La Cruz DDS - 01/17/2025 5:19 PM EDT Images from the original note were not included. Surgical History and Physical [facility] [address] [facility] OR [address] [address] Name: Vee Sarabia : 1985 39 year old CSN: [id number] Attending: Moo Olsen DMD, MD Date of Admission: No admission date for patient encounter. 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 Past Medical History: Medical History[1] Past Surgical History: Review of patient's past surgical history indicates: CHOLECYSTECTOMY (2008) OSH H+P 01/25/19 DENTAL RESTORATIONS (02/11/2019) Procedure: DENTAL RESTORATIONS; Surgeon: Fernando Kurtz DDS; Location: [facility] Surgery Mode; Service: Dental DENTAL RESTORATIONS (11/05/2020) Procedure: DENTAL RESTORATIONS; Surgeon: Dru Friedman DDS; Location: [facility] Surgery Mode; Service: Dental DENTAL RESTORATIONS (01/08/2024) Procedure: DENTAL RESTORATIONS; Surgeon: Stacie Torres DMD; Location: [facility] Surgery Mode; Service: Dental Medications: No current facility-administered medications [...] Inject 150 mg into the muscle once. (Patientnot taking: Reported on 10/12/2024) ondansetron (Zofran) 4 [...] or any previous visit (from the past 62850 hours). BMP (last 3 years, up to [...] procedure. Medications, allergies, and pertinent laboratory and diagnostictests were also reviewed at this time. Procedure is still indicated. Yes Seen an evaluated by Robin De La Cruz DDS. Discussed with attending Moo Olsen DMD, MD. 01/17/25 5:19 PM [1] Past [...] Drug use: Not Currently Cosigned by Moo Olsen DMD, MD at 01/18/2025 12:39 PM EDT [facility] Work Phone: 1(569) 897-921909-02-2025 NoteSurgical History and Physical [address] [place] [address] [place] [address] Name: Vee Sarabia : 1985 39 year old CSN: [id number] Attending: oMo Olsen DMD, MD Date of Admission: No admission date for patient encounter. 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 Past Medical History: Medical History[1] Past Surgical History: Review of patient's past surgical history indicates: CHOLECYSTECTOMY (2008) OSH H+P 01/25/19 DENTAL RESTORATIONS (02/11/2019) Procedure: DENTAL RESTORATIONS; Surgeon: Fernando Kurtz DDS; Location: [facility] Surgery Mode; Service: Dental DENTAL RESTORATIONS (11/05/2020) Procedure: DENTAL RESTORATIONS; Surgeon: Dru Friedman DDS; Location: [facility] Surgery Mode; Service: Dental DENTAL RESTORATIONS (01/08/2024) Procedure: DENTAL RESTORATIONS; Surgeon: Stacie Torres DMD; Location: [facility]; Service: Dental Medications: No current facility-administered medications [...] or any previous visit (from the past 84891 hours). BMP (last 3 years, up to [...] Medications, allergies, and pertinen (more content not included)...[facility] 01-17-2025 History and physical note* Robin De La Cruz DDS - 01/17/2025 5:19 PM EDT Images from the original note were not included. Surgical History and Physical [address] [place] [address] [place] [address] Name: Vee Sarabia : 1985 39 year old CSN: [id number] Attending: Moo Olsen DMD, MD Date of Admission: No admission date for patient encounter. 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 Past Medical History: Medical History[1] Past Surgical History: Review of patient's past surgical history indicates: CHOLECYSTECTOMY (2008) OSH H+P 01/25/19 DENTAL RESTORATIONS (02/11/2019) Procedure: DENTAL RESTORATIONS; Surgeon: Fernando Kurtz DDS; Location: [facility] Surgery Mode; Service: Dental DENTAL RESTORATIONS (11/05/2020) Procedure: DENTAL RESTORATIONS; Surgeon: Dru Friedman DDS; Location: [facility] Surgery Mode; Service: Dental DENTAL RESTORATIONS (01/08/2024) Procedure: DENTAL RESTORATIONS; Surgeon: Stacie Torres DMD; Location: [facility] Surgery Mode; Service: Dental Medications: No current facility-administered medications [...] Inject 150 mg into the muscle once. (Patientnot taking: Reported on 10/12/2024) ondansetron (Zofran) 4 [...] or any previous visit (from the past 68794 hours). BMP (last 3 years, up to [...] procedure. Medications, allergies, and pertinent laboratory and diagnostictests were also reviewed at this time. Procedure is still indicated. Yes Seen an evaluated by Robin De La Cruz DDS. Discussed with attending Moo Olsen DMD, MD. 01/17/25 5:19 PM [1] Past [...] Drug use: Not Currently Cosigned by Moo Olsen DMD, MD at 01/18/2025 12:39 PM EDT documented in this [id number] Telephone encounter Note* Telephone Encounter - Marco Brower RN - 01/17/2025 9:13 AM EDT Spoke to Rosemary from [facility]. Aware of 11:30 time of arrival at [address]. NPO and medication instructions reviewed. [id number] Miscellaneous Notes* Telephone Encounter - Marco Brower RN - 01/17/2025 9:13 AM EDT Spoke to Rosemary from [facility]. Aware of 11:30 time of arrival at [address]. NPO and medication instructions reviewed. documented in this [id number] NoteAnest[address] consent [address] Peres for 01/18 procedure and scanned into Evim.net.[facility] [id number] Telephone encounter Note* Telephone Encounter - Susie Dumont RN - 01/09/2025 4:21 PM EDT Anesthesia consent obtained by Dr. Peres for 01/18 procedure and scanned into Epic. [id number] Miscellaneous Notes* Telephone Encounter - Susie Dumont RN - 01/09/2025 4:21 PM EDT Anesthesia consent obtained by Dr. Peres for 01/18 procedure and scanned into Epic. documented in this [id number] Instructions* Discharge Instructions* Radha Evans RN - 01/04/2025 10:10 AM EDT January 04, 2025 Attn: [facility] Vee Sarabia is scheduled for your procedure/surgery on 01/18/[address] Olsen at the [address] Surgery Mode location. You will be contacted on 01/17/2025 between 10-3 PMand provided with your arrival time. [address] [place] [address] Enter through the main entrance, check-in at [...] BOLD TEXT ? Expect a call from [employer] one business day prior to surgery for [...] earrings, or mouth, tongue, or body piercing's). Metaljewelry could cause constriction, amputation, or stafford. Loose [...] a car, cab, shared ride service, or [employer]-van. You will not be allowed to drive yourself home or travel home alone. Your surgery may be cancelled if you do not havea ride. A responsible adult must stay with you after surgery. ? PLEASE BE ON TIME. A late arrival may result in the cancellation/ delay of your surgery. Thank you for choosing [facility]; it is our pleasure to care for you If you become ill prior to procedure or surgery, or a family emergency should arise, please call the provider or surgeon's office directly. documented in this [id number] Evaluation note* PAT Call History - Radha Evans RN - 01/04/2025 9:48 AM EDT Images from the original note were not included. Telephone History Vee Sarabia, [id number] 01/[birth year]25 39 year old 146 lbs 4' 10 Patient was identified by name and date of . [facility] half-way [place] RN [phone] fax [phone] Legal guardian Mom Gabriela Calloway [phone] *Not sure that patient will be able to provide urine sample the day of procedure intermittently continent, half-way turn around on Labs 72 hours Needs: [...] Autism, Cerebral palsy, Impulse control disorder, seizure disorder,osteoporosis (pt has hx of alendronate 5+yrs stopped [...] . She was no longer on the lamictal.Latuda was started at this same time. She [...] She no longer beared any weight and wouldneed a lift and 2 assits at that [...] grand mal seizure reported from staff and a nother event they believe to be seizure. She [...] visits ago. And the night prior to thatbrian was home with her father and he stated she had 1 as well. We did increase her nighttime Depakote and he behaviors have gotten better and one possible seizure noted shortly after increase, none inthe last 6 months. She is very pleasant today. Behaviors seem to continue to be doing well. She is now on Risperdal. She is excited today as she is going home for the weekend. Her parents continue totake her home every other weekend. Plan home paperwork reviewed continue with keppra 500 mg po BID Continue depakote ER for seizure prevention 500 mg in am 750 mg at bedtime Continue with Psychiatry monitor for worsening continue exercises call in for any events This was discussed with the patient, all questions were answered and they agreed with the treatmentplan. The patient is to call with any worsening of the condition or new symptoms. STOP-BANG Row Name 01/04/25 4718 History of sleep apnea? No Snoring No [...] (+) hypothyroidism, obesity (-) diabetes mellitus, hyperthyroidism managed care specialist Comment: Regular menses LMP 12/14/2024 - patient may be able to provide urine sample Neuro/Psych (+) bipolar disorder, anxiety/panic attacks, seizures (Last Sz 2023), cerebral palsy, attention deficit hyperactivity disorder, intellectual disability (-) CVA, depression, schizophrenia, dementia Comment: Impulse control / verbal / vocal Autism Cardiovascular (+) exercise intolerance wheelchair <4 METs (-) hypertension, past CO, CAD, CABG/stent, arrhythmia, angina, CHF, valvular problems/murmurs, [...] Stress Test: Not Found 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 (Patientnot taking: Reported on 10/12/2024) ondansetron (Zofran) 4 [...] BOLD TEXT ? Expect a call from [employer] one business day prior to surgery for [...] earrings, or mouth, tongue, or body piercing's). Metaljewelry could cause constriction, amputation, or stafford. Loose [...] may be cancelled if you do not havea ride. A responsible adult must stay with you after surgery. ? PLEASE BE ON TIME. A late arrival may result in the cancellation/ delay of your surgery. Thank you for choosing [employer]; it is our pleasure to care for [...] Osteopenia OSH H+P 01/25/19 Other bipolar disorder ([facility]) 10/08/2007 Pervasive developmental disorder ([facility]) OSH H+P 01/25/19 Seasonal allergies OSH H+P 01/25/19 Seizure disorder ([facility]) OSH H+P 01/25/19 Severe intellectual disability OSH H+P 01/25/19 [2] Patient Active Problem List Diagnosis Code Cerebral palsy ([facility]) G80.9 Dental caries K02.9 Dental decay K02.9 Hamstring tightness M62.89 Examination following surgery Z09 Crouched gait R26.89 Caries K02.9 Anorexia R63.0 Disruptive behavior disorder F91.9 Impulse control disorder F63.9 Osteoporosis M81.0 Other bipolar disorder ([facility]) F31.89 Autism spectrum disorder (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) G40.909 Hypothyroidism, unspecified E03.9 Epilepsy, unspecified, not intractable, without status epilepticus ([facility]) G40.909 Bipolar 1 disorder ([facility]) F31.9 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 K02.9 [3] Past Surgical History: Procedure Laterality Date CHOLECYSTECTOMY 2008 OSH H+P 01/25/19 DENTAL RESTORATIONS N/A 02/11/2019 Procedure: DENTAL RESTORATIONS; Surgeon: Fernando Kurtz DDS; Location: [facility] Surgery Mode; Service: Dental DENTAL RESTORATIONS N/A 11/05/2020 Procedure: DENTAL RESTORATIONS; Surgeon: Dru Friedman DDS; Location: [facility] Surgery Mode; Service: Dental DENTAL RESTORATIONS N/A 01/08/2024 Procedure: DENTAL RESTORATIONS; Surgeon: Stacie Torres DMD; Location: [facility]; Service: Dental [4] Social History Socioeconomic History Marital status: Single Tobacco Use Smoking status: Never Smokeless tobacco: Never Substance and Sexual Activity Alcohol use: Not Currently Drug use: Not Currently [id number] Miscellaneous Notes* PAT Call History - Radha Evans RN - 01/04/2025 9:48 AM EDT Images from the original note were not included. Telephone History Vee Sarabia, [id number] 01/04/[birth year]25 39 year old 146 lbs 4' 10 Patient was identified by name and date of . [facility] half-way [place] RN [phone] fax [phone] Legal guardian Mom Gabriela Calloway [phone] *Not sure that patient will be able to provide urine sample the day of procedure intermittently continent, half-way turn around on Labs 72 hours Needs: [...] Autism, Cerebral palsy, Impulse control disorder, seizure disorder,osteoporosis (pt has hx of alendronate 5+yrs stopped [...] . She was no longer on the lamictal.Latuda was started at this same time. She [...] She no longer beared any weight and wouldneed a lift and 2 assits at that [...] grand mal seizure reported from staff and a nother event they believe to be seizure. She [...] visits ago. And the night prior to thatshkamryn was home with her father and he stated she had 1 as well. We did increase her nighttime Depakote and he behaviors have gotten better and one possible seizure noted shortly after increase, none inthe last 6 months. She is very pleasant today. Behaviors seem to continue to be doing well. She is now on Risperdal. She is excited today as she is going home for the weekend. Her parents continue totake her home every other weekend. Plan home paperwork reviewed continue with keppra 500 mg po BID Continue depakote ER for seizure prevention 500 mg in am 750 mg at bedtime Continue with Psychiatry monitor for worsening continue exercises call in for any events This was discussed with the patient, all questions were answered and they agreed with the treatmentplan. The patient is to call with any worsening of the condition or new symptoms. ANASTACIA Em Name 01/04/25 0947 History of sleep apnea? [...] (+) hypothyroidism, obesity (-) diabetes mellitus, hyperthyroidism managed care specialist Comment: Regular menses LMP 12/14/2024 - patient may be able to provide urine sample Neuro/Psych (+) bipolar disorder, anxiety/panic attacks, seizures (Last Sz 2023), cerebral palsy, attention deficit hyperactivity disorder, intellectual disability (-) CVA, depression, schizophrenia, dementia Comment: Impulse control / verbal / vocal Autism Cardiovascular (+) exercise intolerance wheelchair <4 METs (-) hypertension, past CO, CAD, CABG/stent, arrhythmia, angina, CHF, valvular problems/murmurs, [...] Stress Test: Not Found 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 (Patientnot taking: Reported on 10/12/2024) ondansetron (Zofran) 4 [...] BOLD TEXT ? Expect a call from [employer] one day prior to surgery for surgery arrival [...] earrings, or mouth, tongue, or body piercing's). Metaljewelry could cause constriction, amputation, or stafford. Loose [...] a car, cab, shared ride service, or [employer]-van. You will not be allowed to drive yourself home or travel home alone. Your surgery may be cancelled if you do not havea ride. A responsible adult must stay with you after surgery. ? PLEASE BE ON TIME. A late arrival may result in the cancellation/ delay of your surgery. Thank you for choosing [facility]; it is our pleasure to care for [...] Osteopenia OSH H+P 01/25/19 Other bipolar disorder ([facility]) 10/08/2007 Pervasive developmental disorder ([facility]) OSH H+P 01/25/19 Seasonal allergies OSH H+P 01/25/19 Seizure disorder ([facility]) OSH H+P 01/25/19 Severe intellectual disability OSH H+P 01/25/19 [2] Patient Active Problem List Diagnosis Code Cerebral palsy ([facility]) G80.9 Dental caries K02.9 Dental decay K02.9 Hamstring tightness M62.89 Examination following surgery Z09 Crouched gait R26.89 Caries K02.9 Anorexia R63.0 Disruptive behavior disorder F91.9 Impulse control disorder F63.9 Osteoporosis M81.0 Other bipolar disorder ([facility]) F31.89 Autism spectrum disorder (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) G40.909 Hypothyroidism, unspecified E03.9 Epilepsy, unspecified, not intractable, without status epilepticus ([facility]) G40.909 Bipolar 1 disorder ([facility]) F31.9 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 K02.9 [3] Past Surgical History: Procedure Laterality Date CHOLECYSTECTOMY 2008 OSH H+P 01/25/19 DENTAL RESTORATIONS N/A 02/11/2019 Procedure: DENTAL RESTORATIONS; Surgeon: Fernadno Kurtz DDS; Location: [facility] Surgery Mode; Service: Dental DENTAL RESTORATIONS N/A 11/05/2020 Procedure: DENTAL RESTORATIONS; Surgeon: Dru Friedman DDS; Location: [facility] Surgery Mode; Service: Dental DENTAL RESTORATIONS N/A 01/08/2024 Procedure: DENTAL RESTORATIONS; Surgeon: Stacie Torres DMD; Location: [facility]; Service: Dental [4] Social History Socioeconomic History Marital status: Single Tobacco Use Smoking status: Never Smokeless tobacco: Never Substance and Sexual Activity Alcohol use: Not Currently Drug use: Not Currently documented in this [id number] Telephone encounter Note* Telephone Encounter - Gabriela Kerns RN - 11/02/2024 7:44 AM EDT Situation: Sparkle is calling from [facility] to see if appointment for today needs to be cancelled/ rescheduled Background: Pt is scheduled for surgery today to have teeth extraction at [address] She was supposed to be NPO for this procedure but accidentally got a breakfast tray andate the whole thing. She had eggs, toast and applesauce. Assessment: N/A Recommendation: Encounter routed to clinical pool for recommendation. Please call [facility] at [phone] to advise if surgery will need rescheduled. [facility] Work Phone: [phone] Miscellaneous Notes* Telephone Encounter - Gabriela Kerns RN - 11/02/2024 7:44 AM EDT Situation: [facility] is calling from [facility] to see if appointment for today needs to be cancelled/ rescheduled Background: Pt is scheduled for surgery today to have teeth extraction at [address] She was supposed to be NPO for this procedure but accidentally got a breakfast tray andate the whole thing. She had eggs, toast and applesauce. Assessment: N/A Recommendation: Encounter routed to clinical pool for recommendation. Please call [facility] at [phone] to advise if surgery will need rescheduled. documented in this [id number] Telephone encounter Note* Telephone Encounter - Mignon Tabor RN - 10/28/2024 2:46 PM EDT Patient's arrival time for 11/02/2024 is 0645, moved earlier per [facility] request. [facility] confirmed 0645 arrival, NPO and med instructions reviewed. [id number] Miscellaneous Notes* Telephone Encounter - Mignon Tabor RN - 10/28/2024 2:46 PM EDT Patient's arrival time for 11/02/2024 is 0645, moved earlier per [facility] request. [facility] confirmed 0645 arrival, NPO and med instructions reviewed. documented in this [id number] Telephone encounter Note* Telephone Encounter - Susie Dumont RN - 10/27/2024 1:29 PM EDT Christy from [facility] made aware of 0915 surgery arrival time on 11/02 at [address]. [id number] Miscellaneous Notes* Telephone Encounter - Susie Dumont RN - 10/27/2024 1:29 PM EDT Christy from [facility] made aware of 0915 surgery arrival time on 11/02 at [address]. documented in this [id number] NoteAnesthesia consent obtained by Dr. Jacobs for 11/02 procedure and scanned into Evim.net.[facility] [id number] Telephone encounter Note* Telephone Encounter - Susie Dumont RN - 10/26/2024 9:42 AM EDT Anesthesia consent obtained by Dr. Jacobs for 11/02 procedure and scanned into Evim.net. [id number] Miscellaneous Notes* Telephone Encounter - Susie Dumont RN - 10/26/2024 9:42 AM EDT Anesthesia consent obtained by Dr. Jacobs for 11/02 procedure and scanned into Epic. documented in this [id number] Telephone encounter Note* Telephone Encounter - Anjali Evans RN - 10/15/2024 2:53 PM EDT Situation: Gabriela Booth calling in on behalf of pt Background: Leobardo states had gotten a call from staff requesting consent for an upcoming procedure Assessment: n/a Recommendation: fauzia Amado Rn will route message to FS provider and staff to call back at [phone] to obtain consent . [id number] Miscellaneous Notes* Telephone Encounter - Anjali Evans RN - 10/15/2024 2:53 PM EDT Situation: Gabriela Booth calling in on behalf of pt Background: Leobardo states had gotten a call from staff requesting consent for an upcoming procedure Assessment: n/a Recommendation: fauzia Amado Rn will route message to [facility] provider and staff to call back at [phone] to obtain consent . documented in this [id number] Instructions* Discharge Instructions* Dacia Martins RN - 10/12/2024 11:05 AM EDT You are to have Surgery with Dr. Olsen on 11/02/[address] It is located at [address] [place] [address]. PATIENT MEDICATION INSTRUCTIONS: On the morning of [...] Do not take any Ibuprofen products/NSAIDs 3 daysbefore surgery. May take over the counter Acetaminophen [...] unless otherwise contacted. Expect a call from [employer] one business day prior to surgery for surgery arrival time andlocation. Please plan to restart your medications the day after surgery unless otherwise explicitly instructed. Please contact your surgeon s/proceduralist s office for any surgical or recovery types of questions. CANCELLING YOUR SURGERY/PROCEDURE: If you get a cold, are not feeling well, or become , please call your surgeon s office as soon as possible. Refer to your Preparing for Your Surgery/Procedure booklet or [employer]/surgery if you have questions. Contact the Pre-Admission Testing department at [phone] or your surgeon's officewith any questions that are not answered. Eating [...] earrings, or mouth, tongue, or body piercings. Metaljewelry could cause constriction, amputation, or stafford. Loose [...] stay with you after surgery. Please call [facility] if you need transportation assistance or have concerns about going home [phone]. PEDIATRIC or ADOLESCENTS: Parents or a legal [...] of water, then progress to clear, non-alcoholic fluids.You do not have to eat if you do not feel like it; fluids are the most important in the first 24 hours after surgery. If you start to eat, try bananas, applesauce, plain toast, saltine crackers, or broth; avoid fried or fatty foods. Make sure to eat something about 15 minutes before taking any painmedications. Seek medical attention for any prolonged PONV and signs of dehydration. Thank you for choosing [facility]; it is our pleasure to care for you. documented in this [id number] Evaluation note* PAT Call History - Dacia Martins RN - 10/12/2024 9:11 AM EDT Images from the original note were not included. Telephone History Vee Sarabia, [id number] 10/12/2024 Patient was identified by name and date of with Nurse Benjamin at [facility]. Needs: Physical, Neck Circumference, BHCG and Seizure Precautions on DOS. If the patient becomes ill prior to procedureor surgery, they are to call their provider or surgeon's office directly. Will need LG consent 10/12/2024- Faxed Prep info to [facility] : 39 year old 146.6 lbs 4' 10 Date of Surgery: 11/02 Surgeon: Pretty Type of Surgery: EXTRACTION, TEETH: #12,#13,#14 HISTORY OF PRESENT ILLNESS: Telephone history prior to the surgery at [facility], [address] [place] [address], enter through the main entrance, check-in at [...] problems (dental caries) Endo (+) hypothyroidism, obesity managed care specialist Comment: Regular menses Neuro/Psych (+) bipolar disorder, [...] previous ECGs available Confirmed by LORENZA PARKS ([id number]) on 12/28/2023 8:11:02 PM ECHO: Echocardiogram date: [...] Inject 150 mg into the muscle once. (Patientnot taking: Reported on 10/12/2024) ondansetron (Zofran) 4 [...] Do not take any Ibuprofen products/NSAIDs 3 daysbefore surgery. May take over the counter Acetaminophen [...] unless otherwise contacted. Expect a call from [employer] one business day prior to surgery for surgery arrival time andlocation. Please plan to restart your medications the [...] questions. Contact the Pre-Admission Testing department at [phone] or your surgeon's officewith any questions that are not answered. Eating [...] earrings, or mouth, tongue, or body piercings. Metaljewelry could cause constriction, amputation, or stafford. Loose [...] stay with you after surgery. [facility] if you need transportation assistance or have concerns about going home [phone]. PEDIATRIC or ADOLESCENTS: Parents or a legal [...] of water, then progress to clear, non-alcoholic fluids.You do not have to eat if you do not feel like it; fluids are the most important in the first 24 hours after surgery. If you start to eat, try bananas, applesauce, plain toast, saltine crackers, or broth; avoid fried or fatty foods. Make sure to eat something about 15 minutes before taking any painmedications. Seek medical attention for any prolonged PONV and signs of dehydration. Thank you for choosing [facility] [employer] [facility]; it is our pleasure to care for you. Dacia Martins RN Time Spent Performing this Telephone History: 35 [1] Past Medical History: Diagnosis Date ADHD (attention deficit hyperactivity disorder) OSH H+P 01/25/19 Anemia OSH H+P 01/25/19 Autism (HCC) OSH H+P 01/25/19 Cerebral palsy ([facility]) Mild, OSH H+P 01/25/19 Cholelithiasis OSH H+P 01/25/19 Chronic constipation OSH H+P 01/25/19 Disruptive behavior disorder OSH H+P 01/25/19 Dyspepsia OSH H+P 01/25/19 Hypothyroid OSH H+P 01/25/19 Impulse control disorder OSH H+P 01/25/19 Intermittent explosive disorder OSH H+P 01/25/19 Myopia OSH H+P 01/25/19 Osteopenia OSH H+P 01/25/19 Pervasive developmental disorder (HCC) OSH H+P 01/25/19 Seasonal allergies OSH H+P 01/25/19 Seizure disorder ([facility]) OSH H+P 01/25/19 Severe intellectual disability OSH H+P 01/25/19 [2] Patient Active Problem List Diagnosis Code Cerebral palsy (HCC) G80.9 Dental caries K02.9 Dental decay K02.9 Hamstring tightness M62.89 Examination following surgery Z09 Crouched gait R26.89 Caries K02.9 Anorexia R63.0 Disruptive behavior disorder F91.9 Impulse control disorder F63.9 Osteoporosis M81.0 Other bipolar disorder ([facility]) F31.89 Autism spectrum disorder (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) G40.909 Hypothyroidism, unspecified E03.9 Epilepsy, unspecified, not intractable, without status epilepticus ([facility]) G40.909 Bipolar [address] disorder ([facility]) F31.9 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 K02.9 [3] Past Surgical History: Procedure Laterality Date CHOLECYSTECTOMY 2008 OSH H+P 01/25/19 DENTAL RESTORATIONS N/A 02/11/2019 Procedure: DENTAL RESTORATIONS; Surgeon: Fernando Kurtz DDS; Location: [facility]; Service: Dental DENTAL RESTORATIONS N/A 11/05/2020 Procedure: DENTAL RESTORATIONS; Surgeon: Dru Friedman DDS; Location: [facility]; Service: Dental DENTAL RESTORATIONS N/A 01/08/2024 Procedure: DENTAL RESTORATIONS; Surgeon: Stacie Torres DMD; Location: [facility]; Service: Dental [4] Social History Socioeconomic History Marital status: Single Tobacco Use Smoking status: Never Smokeless tobacco: Never Substance and Sexual Activity Alcohol use: Not Currently Drug use: Not Currently [id number] Miscellaneous Notes* PAT Call History - Dacia Martins RN - 10/12/2024 9:11 AM EDT Images from the original note were not included. Telephone History Vee No, [id number] 10/12/2024 Patient was identified by name and date of with Nurse Benjamin at [facility]. Needs: Physical, Neck Circumference, BHCG and Seizure Precautions on DOS. If the patient becomes ill prior to procedureor surgery, they are to call their provider or surgeon's office directly. Will need LG consent 10/12/2024- Faxed Prep info to [facility] : 39 year old 146.6 lbs 4' 10 Date of Surgery: 11/02 Surgeon: Pretty Type of Surgery: EXTRACTION, TEETH: #12,#13,#14 HISTORY OF PRESENT ILLNESS: Telephone history prior to the surgery at [facility], [address] [place] [address], enter through the main entrance, check-in at [...] problems (dental caries) Endo (+) hypothyroidism, obesity managed care specialist Comment: Regular menses Neuro/Psych (+) bipolar disorder, [...] Inject 150 mg into the muscle once. (Patientnot taking: Reported on 10/12/2024) ondansetron (Zofran) 4 [...] Do not take any Ibuprofen products/NSAIDs 3 daysbefore surgery. May take over the counter Acetaminophen [...] unless otherwise contacted. Expect a call from [employer] one business day prior to surgery for surgery arrival time andlocation. Please plan to restart your medications the day after surgery unless otherwise explicitly instructed. Please contact your surgeon s/proceduralist s office for any surgical or recovery types of questions. CANCELLING YOUR SURGERY/PROCEDURE: If you get a cold, are not feeling well, or become , please call your surgeon s office as soon as possible. Refer to your Preparing for Your Surgery/Procedure booklet or [email or web address] if you have questions. Contact the Pre-Admission Testing department at [phone] or your surgeon's officewith any questions that are not answered. Eating [...] earrings, or mouth, tongue, or body piercings. Metaljewelry could cause constriction, amputation, or stafford. Loose [...] stay with you after surgery. Please call [employer] if you need transportation assistance or have concerns about going home [phone]. PEDIATRIC or ADOLESCENTS: Parents or a legal [...] of water, then progress to clear, non-alcoholic fluids.You do not have to eat if you do not feel like it; fluids are the most important in the first 24 hours after surgery. If you start to eat, try bananas, applesauce, plain toast, saltine crackers, or broth; avoid fried or fatty foods. Make sure to eat something about 15 minutes before taking any painmedications. Seek medical attention for any prolonged PONV and signs of dehydration. Thank you for choosing [facility]; it is our pleasure to care for [...] H+P 01/25/19 Intermittent explosive disorder OSH H+P 9/10/19 Myopia OSH H+P 01/25/19 Osteopenia OSH H+P 01/25/19 Pervasive developmental disorder (HCC) OSH H+P 01/25/19 Seasonal allergies OSH H+P 01/25/19 Seizure disorder ([facility]) OSH H+P 01/25/19 Severe intellectual disability OSH H+P 01/25/19 [2] Patient Active Problem List Diagnosis Code Cerebral palsy ([facility]) G80.9 Dental caries K02.9 Dental decay K02.9 Hamstring tightness M62.89 Examination following surgery Z09 Crouched gait R26.89 Caries K02.9 Anorexia R63.0 Disruptive behavior disorder F91.9 Impulse control disorder F63.9 Osteoporosis M81.0 Other bipolar disorder ([facility]) F31.89 Autism spectrum disorder (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) G40.909 Hypothyroidism, unspecified E03.9 Epilepsy, unspecified, not intractable, without status epilepticus ([facility]) G40.909 Bipolar 1 disorder ([facility]) F31.9 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 K02.9 [3] Past Surgical History: Procedure Laterality Date CHOLECYSTECTOMY 2008 OSH H+P 01/25/19 DENTAL RESTORATIONS N/A 02/11/2019 Procedure: DENTAL RESTORATIONS; Surgeon: Fernando Kurtz DDS; Location: [facility]; Service: Dental DENTAL RESTORATIONS N/A 11/05/2020 Procedure: DENTAL RESTORATIONS; Surgeon: Dru Friedman DDS; Location: [facility]; Service: Dental DENTAL RESTORATIONS N/A 01/08/2024 Procedure: DENTAL RESTORATIONS; Surgeon: Stacie Torres DMD; Location: [facility]; Service: Dental [4] Social History Socioeconomic History Marital status: Single Tobacco Use Smoking status: Never Smokeless tobacco: Never Substance and Sexual Activity Alcohol use: Not Currently Drug use: Not Currently documented in this [id number] History of Present illness Narrative* Moo Olsen DMD, MD - 07/18/2024 12:20 PM EST Teaching Physician Note: I saw and evaluated the patient. I personally obtained the michelle and critical portions of the historyand physical exam. I reviewed the resident's documentation and discussed the patient with the resident. I agree with the resident's medical decision making as documented in the resident's note. Moo Olsen DMD, MD * Emerson Herbert DMD - 07/13/2024 9:14 AM EST Images from the original note were not included. [facility] PATIENT VISIT CHIEF COMPLAINT: Pain HISTORY OF PRESENT ILLNESS: Pt is a 39yoF, PMH remarkable for ADHD, Autism, Cerebral palsy, Impulsecontrol disorder, seizure disorder, osteoporosis (pt has hx of alendronate 5+yrs stopped in 12/2023), bipolar disorder, referred to [facility] for extraction of teeth #12,13,14. PAST MEDICAL [...] quotient 20 to 34 [F72] Seizure disorder ([facility]) [G40.909] Hypothyroidism, unspecified [E03.9] Epilepsy, unspecified, not intractable, without status epilepticus ([facility]) [G40.909] Bipolar 1 disorder (HCC) [F31.9] REVIEW [...] DENTAL RESTORATIONS; Surgeon: Fernando Kurtz DDS; Location: [facility]; Service: Dental DENTAL RESTORATIONS N/A 11/05/2020 Procedure: DENTAL RESTORATIONS; Surgeon: Dru Friedman DDS; Location: [facility]; Service: Dental DENTAL RESTORATIONS N/A 01/08/2024 Procedure: DENTAL RESTORATIONS; Surgeon: Stacie Torres DMD; Location: [facility]; Service: Dental SOCIAL HX: Tobacco: Never [...] for extraction in the referral. DIAGNOSIS: Caries [[id number]] ASSESSMENT: Pt is a 39yoF, PMH remarkable for ADHD, Autism, Cerebral palsy, Impulse control disorder, seizure disorder, osteoporosis, bipolar disorder, referred to [facility] for extraction of teeth #12,13,14, which require removal due to decay. Note: Will discuss risk of osteonecrosis w/POA pt's mother Gabriela Rodriguez ([phone]) & get phone consent. PLAN: Our plan is to extract the teeth under [facility] @ [facility] due to pt medical history and lack of cooperation. Emerson Herbert DMD * Susie Ivory - 07/13/2024 8:33 AM EST Images from the original note were not included. * Susie Ivory - 07/13/2024 8:32 AM EST Images from the original note were not included. documented in this [id number] Telephone encounter Note* Telephone Encounter - Jacinta Mai - 07/14/2024 2:25 PM EST [facility] Telephone Information: To discuss the need to remove teeth apparently pt mother wants a detailed explanation form facilityas why thye extraction is needed [facility] did read that it was due to decay and stated this to facility [id number] Miscellaneous Notes* Telephone Encounter - Jacinta Mai - 07/14/2024 2:25 PM EST [facility] Telephone Information: To discuss the need to remove teeth apparently pt mother wants a detailed explanation form facilityas why thye extraction is needed [facility] did read that it was due to decay and stated this to facility * Telephone Encounter - Ruby Larsen - 07/13/2024 10:55 AM EST Missed Call Pt's mom/guardian, Gabriela, said she missed a call from Oral Surgery and would like a call back. Please call Gabriela at [phone]. Thanks! documented in this [id number] Telephone encounter Note* Telephone Encounter - Ruby Larsen - 07/13/2024 10:55 AM EST Missed Call Pt's mom/guardian, Gabriela, said she missed a call from Oral Surgery and would like a call back. Please call Gabriela at [phone]. Thanks! [id number] Telephone encounter Note* Telephone Encounter - Kayla Fletcher - 01/11/2024 11:51 AM EDT pt was seen in OR 01/08/24 , Stacie Montalvo DMD recommended that the pt be seen by [facility] fro care & follow up. in progess notes it states Referral placed to [facility] but NO referral can be found in pt's chart. please place referral for oral surgery. Message sent to [facility] Kary on January 13 2024 board. Message placed on board 01/11/24 @ 1152 am [id number] Miscellaneous Notes* Telephone Encounter - Kayla Fletcher - 01/11/2024 11:51 AM EDT pt was seen in OR 01/08/24 , Stacie Montalvo DMD recommended that the pt be seen by [facility] fro care & follow up. in progess notes it states Referral placed to [facility] but NO referral can be found in pt's chart. please place referral for oral surgery. Message sent to [facility] Kary on January 13 2024 board. Message placed on board 01/11/24 @ 1152 am documented in this [id number] History of Present illness Narrative* Divine Simon RN - 01/08/2024 4:21 PM EDT 1605 Discharge instructions reviewed, caregiver states pt on mouth was at home therefore does not wish to wait for prescription documented in this [id number] Hospital Discharge instructions* Discharge Instructions* Divine Simon RN - 01/08/2024 3:48 PM EDT Images from the original note were not included. Dental abscess The Basics Written by the doctors and editors at [facility] What is a dental abscess? -- [...] spread into your jaw, neck, or ear. Lyingdown, chewing, or biting can make pain worse. [...] the dentist what you should do when yougo home. Make sure that you understand exactly [...] do anything to prevent another dental abscess? [place] your teeth at least 2 times a [...] process is complete. This topic retrieved from [employer] on: Jul 29, 2023. Topic [id number] Version 1.0 Release: 32.2.4 - C32.71 2023 [employer]. and/or its affiliates. All rights reserved. figure 1: Dental abscess Adental abscess is a collection of pus from an infection in the mouth. Dentalabscesses can form in the gums, next to a tooth, or in the root of a tooth. Graphic 798011 Version 1.0 Consumer Information Use and Disclaimer Disclaimer: This generalized information is a limited summary of diagnosis, treatment, and/or medication information. It is not meant to be comprehensive and should be used as a tool to help the userunderstand and/or assess potential diagnostic and treatment options. It does NOT include all information about conditions, treatments, medications, side effects, or risks that may apply to a specificpatient. It is not intended to be medical advice or a substitute for the medical advice, diagnosis,or treatment of a health care provider based on the health care provider's examination and assessment of a patient's specific and unique circumstances. Patients must speak with a health care providerfor complete information about their health, medical questions, and treatment options, including any risks or benefits regarding use of medications. This information does not endorse any treatments or medications as safe, effective, or approved for treating a specific patient. [employer] and its affiliates disclaim any warranty or liability relating to this information or the use thereof.The use of this information is governed by the Terms of Use, available at https://www.[employer]/en/know/lpbdjpve-orkarnfstyyoj-yrwsm. 2023 [employer]. and its affiliates and/or licensors. All rights reserved. Copyright 2023 [employer] and/or its affiliates. All rights reserved. PERIOPERATIVE DISCHARGE/HOME-GOING INSTRUCTIONS ANESTHESIA - GENERAL (ADULT) If a problem arises, you may contact your physician by calling [phone] and asking for the resident newspaper subscription solicitor for Dental service. Special Care Needs: Activity: [...] very uncomfortable and can t urinate, call [phone] or come tothe emergency room. The day after surgery, a nurse will call to check on you. However, if there are any questions or concerns, please call us at the number listed in the home going instructions. documented in this [id number] History and physical note* Chandler Parham DDS - 01/08/2024 1:47 PM EDT Surgical Attestation: I have reviewed the patient's History and Physical Examination. I have personally seen and evaluated the patient, repeating michelle portions. There is no significant interval change. Surgery is still indicated. Yes Consent reviewed and signed by patient/family: Yes Operative site verified and marked: site verified but not marked as bilateral (not side specific) Chandler Marin DDS 01/08/2024 1:47 PM [id number] History and physical note* Chandler Parham DDS - 01/08/2024 1:47 PM EDT Surgical Attestation: I have reviewed the patient's [...] DDS 01/08/2024 1:47 PM documented in this [id number] Miscellaneous Notes* Brief Operative Note - Chandler Parham DDS - 01/08/2024 11:28 AM EDT Brief Operative Note PHE OR 3 Vee Sarabia 38 year old female Surgical Contact Serial Number: [id number] Preoperative Diagnosis: ADHD (attention deficit hyperactivity disorder) ([facility]) 10/08/2007 Anorexia 03/16/2008 Cerebral palsy ([facility]) 10/08/2007 Late effect of adverse effect of drug, medical or biological substance 05/02/2009 Mental impairment ([facility]) 10/08/2007 Mental retardation Other bipolar disorder ([facility]) 10/08/2007 Other conduct disorders ([facility]) 10/08/2007 Seizure disorder ([facility]) 10/08/2007 Postoperative Diagnosis: ADHD (attention deficit hyperactivity disorder) ([facility]) 10/08/2007 Anorexia 03/16/2008 Cerebral palsy ([facility]) 10/08/2007 Late effect of adverse effect of drug, medical or biological substance 05/02/2009 Mental impairment ([facility]) 10/08/2007 Mental retardation Other bipolar disorder ([facility]) 10/08/2007 Other conduct disorders ([facility]) 10/08/2007 Seizure disorder ([facility]) 10/08/2007 Procedures: Full mouth X-ray [49067] Full mouth cleaning [10773] Restorations [95555] Surgeon(s): Surgeon(s): Stacie Torres DMD Yoris, Orlando, DDS Staff: Geodetic Survey Director Nurse: Gabriel Hinkle Barrel Roller: Chandler Parham DDS Anesthesia: General Anesthesiologist: Justin [...] by Chandler Marin DDS 01/08/2024 1:48 PM * OP Note - Stacie Torres DMD - 01/08/2024 11:28 AM EDT Operative Note PHE OR 3 Vee Sarabia 38 year old female Surgical Contact Serial Number: [id number] Preoperative Diagnosis: ADHD (attention deficit hyperactivity disorder) ([facility]) 10/08/2007 Anorexia 03/16/2008 Cerebral palsy ([facility]) 10/08/2007 Late effect of adverse effect of drug, medical or biological substance 05/02/2009 Mental impairment ([facility]) 10/08/2007 Mental retardation Other bipolar disorder ([facility]) 10/08/2007 Other conduct disorders ([facility]) 10/08/2007 Seizure disorder ([facility]) 10/08/2007 Postoperative Diagnosis: ADHD (attention deficit hyperactivity disorder) ([facility]) 10/08/2007 Anorexia 03/16/2008 Cerebral palsy ([facility]) 10/08/2007 Late effect of adverse effect of drug, medical or biological substance 05/02/2009 Mental impairment ([facility]) 10/08/2007 Mental retardation Other bipolar disorder ([facility]) 10/08/2007 Other conduct disorders ([facility]) 10/08/2007 Seizure disorder ([facility]) 10/08/2007 Surgeon: Stacie oTrres DMD Road Equipment Operator Surgeon: Chandler Marin DDS Anesthesia: General- Nasal [...] treament was placed on the remaining dentition. Thepatient tolerated the procedure well was extubated in [...] procedure. Chandler Marin DDS 01/08/2024 1:53 PM * Blood Attestation - Justin Shin MD - 01/08/2024 11:21 AM EDT Blood Attestation: ATTESTATION OF INFORMED CONSENT FOR BLOOD: The transfusion of blood and/or blood components were discussed with the patient and/or legal sales support representative. The risks, benefits and alternatives were reviewed. Questions regarding blood transfusions were answered. The patient /or the patient s legal sales support representative agree with the plan for transfusion of blood and/or blood components. documented in this [id number] Surgery Postoperative evaluation and management note* Brief Operative Note - Chandler Parham DDS - 01/08/2024 11:28 AM EDT Brief Operative Note PHE OR 3 Vee Sarabia 38 year old female Surgical Contact Serial Number: [id number] Preoperative Diagnosis: ADHD (attention deficit hyperactivity disorder) ([facility]) 10/08/2007 Anorexia 03/16/2008 Cerebral palsy ([facility]) 10/08/2007 Late effect of adverse effect of drug, medical or biological substance 05/02/2009 Mental impairment ([facility]) 10/08/2007 Mental retardation Other bipolar disorder ([facility]) 10/08/2007 Other conduct disorders ([facility]) 10/08/2007 Seizure disorder ([facility]) 10/08/2007 Postoperative Diagnosis: ADHD (attention deficit hyperactivity disorder) ([facility]) 10/08/2007 Anorexia 03/16/2008 Cerebral palsy ([facility]) 10/08/2007 Late effect of adverse effect of drug, medical or biological substance 05/02/2009 Mental impairment ([facility]) 10/08/2007 Mental retardation Other bipolar disorder ([facility]) 10/08/2007 Other conduct disorders ([facility]) 10/08/2007 Seizure disorder ([facility]) 10/08/2007 Procedures: Full mouth X-ray [04587] Full mouth cleaning [75317] Restorations [33328] Surgeon(s): Surgeon(s): Stacie Torres DMD Yoris, Orlando, DDS Staff: Geodetic Survey Director Nurse: Gabriel Hinkle Barrel Roller: Chandler Parham DDS Anesthesia: General Anesthesiologist: Justin [...] by Chandler Marin DDS 01/08/2024 1:48 PM [id number] Surgery Surgical operation note* OP Note - Stacie Torres DMD - 01/08/2024 11:28 AM EDT Operative Note PHE OR 3 Vee Sarabia 38 year old female Surgical Contact Serial Number: [id number] Preoperative Diagnosis: ADHD (attention deficit hyperactivity disorder) ([facility]) 10/08/2007 Anorexia 03/16/2008 Cerebral palsy ([facility]) 10/08/2007 Late effect of adverse effect of drug, medical or biological substance 05/02/2009 Mental impairment ([facility]) 10/08/2007 Mental retardation Other bipolar disorder ([facility]) 10/08/2007 Other conduct disorders ([facility]) 10/08/2007 Seizure disorder ([facility]) 10/08/2007 Postoperative Diagnosis: ADHD (attention deficit hyperactivity disorder) ([facility]) 10/08/2007 Anorexia 03/16/2008 Cerebral palsy ([facility]) 10/08/2007 Late effect of adverse effect of drug, medical or biological substance 05/02/2009 Mental impairment ([facility]) 10/08/2007 Mental retardation Other bipolar disorder ([facility]) 10/08/2007 Other conduct disorders ([facility]) 10/08/2007 Seizure disorder ([facility]) 10/08/2007 Surgeon: Stacie Torres DMD Road Equipment Operator Surgeon: Chandler Marin DDS Anesthesia: General- Nasal [...] treament was placed on the remaining dentition. Thepatient tolerated the procedure well was extubated in [...] procedure. Chandler Marin DDS 01/08/2024 1:53 PM [facility] Work Phone: 1(470) 143-728908-23-2024 Progress note* Blood Attestation - Justni Shin MD - 01/08/2024 11:21 AM EDT Blood Attestation: ATTESTATION OF INFORMED CONSENT FOR BLOOD: The transfusion of blood and/or blood components were discussed with the patient and/or legal sales support representative. The risks, benefits and alternatives were reviewed. Questions regarding blood transfusions were answered. The patient /or the patient s legal sales support representative agree with the plan for transfusion of blood and/or blood components. [employer] Work Phone: 1(230) 123-371508-23-2024 History of Present illness Narrative* Stacie Torres DMD - 01/08/2024 8:05 AM EDT ----- Monday, January 08, 2024 at 3:45:54 PM ----- ----- Provider: Jarrett Torres DMD -- Clinic: [facility] ----- Pt was seen in OR under general anesthesia. comp exam, FMX and 4 quads SRP completed. Topical fluoride applied. #8 MIDLF broken tooth restored with composite. #12,13,14 present with non- restorable cervical lesions interproximally. Due to pt. half-way Fosamax usage, recommend this patient be seen by [facility] for care and follow ups. Referral placed to [facility] See note attached. Operative Note PHE OR 3 Vee Sarabia 38 year old female Surgical Contact Serial Number: [id number] Preoperative Diagnosis: ADHD (attention deficit hyperactivity disorder) ([facility]) 10/08/2007 Anorexia 03/16/2008 Cerebral palsy ([facility]) 10/08/2007 Late effect of adverse effect of drug, medical or biological substance 05/02/2009 Mental impairment ([facility]) 10/08/2007 Mental retardation Other bipolar disorder ([facility]) 10/08/2007 Other conduct disorders ([facility]) 10/08/2007 Seizure disorder ([facility]) 10/08/2007 Postoperative Diagnosis: ADHD (attention deficit hyperactivity disorder) ([facility]) 10/08/2007 Anorexia 03/16/2008 Cerebral palsy ([facility]) 10/08/2007 Late effect of adverse effect of drug, medical or biological substance 05/02/2009 Mental impairment ([facility]) 10/08/2007 Mental retardation Other bipolar disorder ([facility]) 10/08/2007 Other conduct disorders ([facility]) 10/08/2007 Seizure disorder ([facility]) 10/08/2007 Surgeon: Stacie Torres DMD Road Equipment Operator Surgeon: Chandler Marin DDS Anesthesia: General- Nasal [...] treament was placed on the remaining dentition. Thepatient tolerated the procedure well was extubated in the operating room, and taken to the PACU in stable condition. Complications: None Status at end of surgery: Stable documented in this [id number] History of Present illness Narrative* Amy Farooq, ANGELIC - 01/05/2024 10:20 AM EDT Images from the original note were not included. No chief complaint on file. Subjective Vee Sarabia, 38 y.o., female HPI Vee is here for a f/u after an overnight home visit on 12/26/23. Her father showed nursing videoshe took of vee while at home, having episodes of eyes fluttering and shaking her head. Her fatherstates that it is her having a seizure. 15 min's after pt was dropped off at [facility] vee had a grandmal seizure. Movements, when alert, are very rigid [...] Diagnosis Date ADHD (attention deficit hyperactivity disorder) ([facility]) 10/08/2007 Anorexia 03/16/2008 Cerebral palsy ([facility]) 10/08/2007 Late effect of adverse effect of drug, medical or biological substance 05/02/2009 Mental impairment ([facility]) 10/08/2007 Mental retardation Other bipolar disorder ([facility]) 10/08/2007 Other conduct disorders ([facility]) 10/08/2007 Seizure disorder ([facility]) 10/08/2007 Weight loss 03/16/2008 Past Surgical History: [...] before, she was having nystagmas and crossing ofher right eye and bilateral. This is evaluated every shift. This was noticed more when she was having behaviors . She is here again today with a DSP. She was no longer on the lamictal. Latuda was started at this same time. She does continue on the depakote and keppra. I do suspect the lamictal mayhave given her some seizure coverage and perhaps [...] of paperwork she has had tegretol added y Dr. Terry Price. This is at a [...] therefore they had to practically shave her head.She has always had issues with biting and [...] We will increase her nighttime Depakote and seeif this helps control the events. I do [...] were answered and they agreed with the treatmentplan. The patient is to call with any worsening of the condition or new symptoms. Return to clinic: 3 months documented in this encounterThe [facility] Institute of St. LouisBaoapfjvfu38-01-1330 Telephone encounter Note* Telephone Encounter - Susie Dumont RN - 12/28/2023 1:33 PM EDT Anesthesia consent scanned into [facility]. [id number] Miscellaneous Notes* Telephone Encounter - Susie Dumont RN - 12/28/2023 1:33 PM EDT Anesthesia consent scanned into [facility]. documented in this [id number] Instructions* Patient Instructions* Víctor Elliott, LEATHER CARVER-RE ETCHER - 12/25/2023 10:36 AM EDT On the [...] for pain Please hold all Vitamin E, Truxton 3, fish oil and herbal supplements for 1 week prior to surgery Please hold Naltrexone 3 days prior to surgery. Last dose on 01/03. Please use this CHECKLIST to prepare for your surgery/procedure: ? Assume that any lab or testing done during your Pre-admission testing appointment is within normal limits unless otherwise contacted. ? Expect a call from [employer] one business day prior to surgery for [...] your Preparing for Your Surgery/Procedure booklet or [email or web address] if you have questions. Contact the Pre-Admission Testing department at [phone] or your surgeon's office with any questions [...] stay with you after surgery. Please call [employer] if you need transportation assistance or have concerns about going home [phone]. ? PEDIATRIC or ADOLESCENTS: Parents or a [...] signs of dehydration. Thank you for choosing [facility]; it is our pleasure to care for you documented in this [id number] Instructions* Patient Instructions* Víctor Elliott APRN-CNP - 12/25/2023 10:36 AM [...] for pain Please hold all Vitamin E, Truxton 3, fish oil and herbal supplements for 1 week prior to surgery Please hold Naltrexone 3 days prior to surgery. Last dose on 01/03. Please use this CHECKLIST to prepare for your surgery/procedure: ? Assume that any lab or testing done during your Pre-admission testing appointment is within normal limits unless otherwise contacted. ? Expect a call from [employer] one business day prior to surgery for [...] your Preparing for Your Surgery/Procedure booklet or [email or web address] if you have questions. Contact the Pre-Admission Testing department at [phone] or your surgeon's office with any questions [...] stay with you after surgery. Please call [employer] if you need transportation assistance or have concerns about going home [phone]. ? PEDIATRIC or ADOLESCENTS: Parents or a [...] signs of dehydration. Thank you for choosing [facility]; it is our pleasure to care for you documented in this [id number] History of Present illness Narrative* Víctor Elliott APRN-CNP - 12/25/2023 10:30 AM EDT Images from the original note were not included. Pre-Admission Testing Consultation Vee Sarabia, [id number] 38 year old Female 12/26/2023 Consult placed to [facility] by Dr. Almaraz due to significant PMH of caries. [facility] Triage Risk Score Total Score: 2 2 Patient is on more than 2 antihypertension medications. Vee Sarabia is scheduled for DENTAL RESTORATIONS on 01/08/2024. Pre-Op diagnosis of: Pre-Op Diagnosis Codes: * Caries [K02.9] HISTORY OF PRESENT ILLNESS: Patient presents today with a history of caries. Patient is here for pre-admission optimization and education prior to surgery. She is accompanied with her caregiver at [place], Dora Saucedo, who is helping review the patient's current and past medical history. Gabriela Rodriguez (mother--phone-- [phone]) is legal guardian. RECENT ILLNESS: Serious illness or hospitalization within the last six months. No STOP BANG: STOP-BANG Row Name 12/25/23 1051 History of sleep apnea? No Snoring No [...] DENTAL RESTORATIONS; Surgeon: Fernando Kurtz DDS; Location: [facility] Surgery Mode; Service: Dental DENTAL RESTORATIONS N/A 11/05/2020 Procedure: DENTAL RESTORATIONS; Surgeon: Dru Friedman DDS; Location: [facility] Surgery Mode; Service: Dental Past Medical History and Review of Systems Pulmonary - negative ROS Dental Comment: Caries--s/p dental restorations x2 Endo (+) hypothyroidism Comment: Hyponatremia managed care specialist Comment: LMP: unknown Neuro/Psych (+) seizures, cerebral [...] and educating the patiecounseling and educating the patient/family/caregivernt/family/caregiver - counseling and educating the patient/family/caregiver - ordering medications, tests, or procedures - documenting clinical information in the electronic or other health record - independently interpreting results (not separately reported) and communicating results to the patient/family/caregiver - care coordination (not separately reported). Interviewer signature: ANDREWS Cisneros 5:27 PM 12/26/2023 documented in this [id number] History of Present illness Narrative* Víctor Elliott APRN-CNP - 12/25/2023 10:30 AM EDT Images from the original note were not included. Pre-Admission Testing Consultation Vee Sarabia, [id number] 38 year old Female 12/26/2023 Consult placed to [facility] by Dr. Almaraz due to significant PMH of caries. [facility] Triage Risk Score Total Score: 2 2 Patient is on more than 2 antihypertension medications. Vee Sarabia is scheduled for DENTAL RESTORATIONS on 01/08/2024. Pre-Op diagnosis of: Pre-Op Diagnosis Codes: * Caries [K02.9] HISTORY OF PRESENT ILLNESS: Patient presents today with a history of caries. Patient is here for pre-admission optimization and education prior to surgery. She is accompanied with her caregiver at [place], Dora Saucedo, who is helping review the patient's current and past medical history. Gabriela Rodriguez (mother--phone-- [phone]) is legal guardian. 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 Interviewer signature: ANDREWS Cisneros 5:27 PM 12/26/2023 documented in this [id number] History of Present illness Narrative* Víctor Elliott APRN-CNP - 12/25/2023 10:30 AM EDT Images from the original note were not included. Pre-Admission Testing Consultation Vee Sarabia, [id number] 38 year old Female 12/26/2023 Consult placed to [facility] by Dr. Almaraz due to significant PMH of caries. [facility] Triage Risk Score Total Score: 2 2 Patient is on more than 2 antihypertension medications. Vee Sarabia is scheduled for DENTAL RESTORATIONS on 01/08/2024. Pre-Op diagnosis of: Pre-Op Diagnosis Codes: * Caries [K02.9] HISTORY OF PRESENT ILLNESS: Patient presents today with a history of caries. Patient is here for pre-admission optimization and education prior to surgery. She is accompanied with her caregiver at [place], Dora Saucedo, who is helping review the patient's current and past medical history. Gabriela Rodriguez (mother--phone-- [phone]) is legal guardian. 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 Interviewer signature: ANDREWS Cisneros 5:27 PM 12/26/2023 documented in this [id number] Note [id number] 09-16-2023 Hospital Discharge instructions Patient Education 09/16/2023 08:49:14 Gastritis, Adult, Drjk-su-Xxqi Gastritis, Adult Gastritis is irritation and swelling (inflammation) of the stomach. There are two kinds of gastritis: Acute gastritis. This kind develops quickly. Chronic gastritis. This kind is much more common. It develops slowly and lasts for a long time. It is important to get help for this condition. If you do not get help, your stomach can bleed, andyou can get sores (ulcers) in your stomach. [...] Follow these instructions at home: Medicines Take amip-krz-chbrxmu and prescription medicines only as told by [...] away. Call your local emergency services (911 inthe [place] Do not wait to see if [...] provider. Document Revised: 09/07/2021 Document Reviewed: 09/07/2021 [employer] Patient Education 2022 [employer]. 09/16/2023 08:49:01 Endoscopy, Care After Procedure [facility] End[facility] Care After Procedure Please read the instructions outlined below and refer to this sheet in the next few weeks. These discharge instructions provide you with general information on caring for [facility] Your doctor may also give you specific [...] Document Re-Released: 10/26/2006 ExitCare Patient Information 2009 [employer] Follow Up Care 09/10/2023 09:54:49 With:Jessee Nina Address: [address] [place] [address], [facility] [address] [place] [address]- [phone] Business (1) When:1 to 2 weeks Comments:Call for any problems. [facility]05-01-2024 NoteEndoscopy Care After Procedure Please read the instructions outlined below and refer to this sheet in the next few weeks. These discharge instructions provide you with general information on caring for yourself [facility] Your doctor may also give you specific [...] Document Re-Released: 10/26/2006 ExitCare? Patient Information ?2009 [employer] Infectious Disease Gastritis, Adult Gastritis is irritation and swelling (inflammation) of the stomach. There are two kinds of gastritis: ? Acute gastritis. This kind develops quickly. ? Chronic gastritis. This kind is much more common. It develops slowly and lasts for a long time. It is important to get help for this condition. If you do not get help, your stomach can bleed, andyou can get sores (ulcers) in your stomach. [...] these instructions at home: Medicines ? Take tklz-otz-qvpefcg and prescription medicines only as told by your doctor. ? If you were prescribed an antibiotic medicine, take it as told by your doctor. Do not stop takingit even if you start to feel better. [...] or tobacco. If you need help quitting, askyour do (more content not included)...[facility]03-07-2023 History of Present illness Narrative* Kary Ku DDS - 07/22/2022 10:35 AM EST ----- Friday, July 22, 2022 at 11:19:05 AM ----- ----- Provider: [id number] - Kary Ku, Resident -- Clinic: [place] ----- OR EVALUATION Patient presents for evaluation [...] Legal Guardian is Gabriela Rodriguez( Mother ): [phone] Dad Bhargav Sarabia [phone] Contact information; [facility] [phone] Extension# [phone] Next Visit: OR ----- Signed on Friday, July 22, 2022 at 12:31:54 PM ----- ----- Provider: Charbel Jain DDS -- Clinic: [place] ----- documented in this [id number] NotePatient Outreach (COVAMN) VEE SARABIA ([id number]) 1985 F NFR Date Time Provider Department 07/14/20 [facility] During your visit today, we recorded the following information about you: Allergies As of Date: 07/14/2020 Noted Allergy Reaction SEASONAL ALLERGIES 11/08/2010 16 - Unknown Date Reviewed: 07/05/2019 Reviewed by: Clover Ng Ma - Fully Assessed Order(s):SARS-COVID VACCINE 1ST DOSE APPT [[id number]] Order #: [id number] FUTURE Prescriptions as of 07/14/2020 Sig: FLUTICASONE [...] 06/26/2015 Encounter Status:Closed by EPIC, PRODUSER on 07/17/20[facility] Evaluation + Plan note No data available for this section [facility] Future Appointments Appointment Date:09/16/2023 08:00:00 AM Scheduled Provider: Location:[facility] Appointment Type:Surgery FT Future Scheduled Tests Radiology* NM Gastric Emptying Study 09/10/23 [facility] Evaluation + Plan note Future Appointments Appointment Date:09/23/2023 10:30:00 AM Scheduled Provider: Location[facility] Appointment Type:NM Gastric Emptying Study (FT) Future Scheduled Tests Radiology* NM Gastric Emptying Study 09/23/23 [facility]* Diagnosis Caries- Primary Unspecified dental caries [...] instructions No data available for this section [facility] No data available for this section [facility] Narrative* Service Level Authorization (Routine) - ClosedSpecialtyDiagnoses / ProceduresReferred By ContactReferred To ContactAnesthesiology Diagnoses Caries 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 Moo Olsen DMD, MD [address] [place] [address] Phone: tel: fax: [facility] PRE ADMISSION TESTING [address] [place] [address] Phone: tel: Referral IDStatusReasonStart DateExpiration DateVisits RequestedVisits [id number]/26/20252/ [facility] for visit Narrative* Auth/Cert (Routine)SpecialtyDiagnoses / ProceduresReferred By ContactReferred To ContactAmbulatory Surgery Diagnoses Caries 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 Caries [K02.9] 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 [K02.9] Procedures UNLISTED PROCEDURE, DENTOALVEOLAR STRUCTURES ANESTHESIA, INTRAORAL PROC, W/BX; NOS EXTRACTION, TEETH: #12,#13,#14 EXTRACTION, TEETH: #12,#13,#14 Moo Olsen DMD, MD [address] [place] [address] Phone: tel: fax: [facility] [address] [place], [place] [id number] Phone: tel: Referral IDStatusReasonStart DateExpiration DateVisits RequestedVisits [id number] [facility] Summary Purpose Family History No Family History [...] Advanced Directives Records Found Reason for Referral SpecialtyDiagnoses / ProceduresReferred By ContactReferred To ContactOral Surgery Diagnoses Caries Stacie Torres DMD [address] [place] [address] Moo Olsen DMD, MD [address] [place] [address] Referral IDStatusReasonStart DateExpiration DateVisits RequestedVisits [id number] Review/ Scheduling Instructions Please call the [facility] at [facility] at to schedule an appointment if one was not made for you today. QuestionAnswer Patient to be evaluated for: Extractions Tooth Number for Extraction Please evaluate patient for extractions of teeth # 12,13,14. Due to pt. half-way Fosamax usage. Additional Source Comments INFORMATION SOURCE (unrecogn ized section and content) DATE CREATED AUTHOR 06/15/2021 [facility] DATE CREATED AUTHOR AUTHOR'S ORGANIZ ATION 10/01/2022 [facility] DATE CREATED AUTHOR AUTHOR'S ORGANIZ ATION 09/28/2023 [facility] DATE CREATED AUTHOR AUTHOR'S ORGANIZ ATION 09/30/2024 [facility] DATE CREATED AUTHOR AUTHOR'S ORGANIZ ATION 02/06/2025 [facility] Care Teams (unrecognized sec tion and content) Team MemberRelationshipSpecialtyStart DateEnd Date Rm Goldman DDS [address] [place] [address] XkanawmjOmpatzjpw42/6/20 Mony Adler APRN-CNP [address] [place] [address] [place] [address] APNAnesthesiology11/16/20Team MemberRelationshipSpecialtyStart DateEnd Date Rm Goldman DDS [address] [place] [address] UsyrnzvdCjkkfoqii52/6/20 Mony Adler APRN-CNP [address] [place] [address] [place] [address] APNAnesthesiology11/16/20Team MemberRelationshipSpecialtyStart DateEnd Date Rm Goldman DDS [address] [place] [address] PcpsyshyJqobvrpub83/6/20 Mony Adler APRN-CNP [address] [place] [address] [place] [address] APNAnesthesiology11/16/20Team MemberRelationshipSpecialtyStart DateEnd Date Rm Goldman DDS [address] [place] [address] VsoroiriKcevojxbm45/6/20 Mony Adler APRN-RE ETCHER [address] [place] [address] [place] [address] APNAnesthesiology11/16/20Team MemberRelationshipSpecialtyStart DateEnd Date Rm Goldman, DDS [address] [place] [address] KaowbsihFezxouayr96/6/20 Mony Adler APRN-RE ETCHER [address] [place] [address] [place] [address] APNAnesthesiology11/16/20Te MemberRelationshipSpecialtyStart DateEnd Date Rm Goldman, Malu [address] [place] [address] ZxpedkwlRmoeymhve14/6/20 Mony Adler APRN-RE ETCHER [address] [place] [address] [place] [address] APNAnesthesiology11/16/20Te MemberRelationshipSpecialtyStart DateEnd Date Rm Goldman, S [address] [place] [address] TumdwfpiLiqrfmkku04/6/20 Mony Adler APRN-RE ETCHER [address] [place] [address] [place] [address] APNAnesthesiology11/16/20Team MemberRelationshipSpecialtyStart DateEnd Date Rm Goldman, DDS [address] [place] [address] VghzhlvhTmzobyvzr72/6/20 Mony Adler LEATHER CARVER-RE ETCHER [address] [place] [address] [place] [address] APNAnesthesiology11/16/20Team MemberRelationshipSpecialtyStart DateEnd Date Rm Goldman, S [address] [place] [address] ZqlxabfnBluvqjrbh38/6/20 Mony Adler APRN-CNP [address] [place] [address] [place] [address] APNAnesthesiology11/16/20Team MemberRelationshipSpecialtyStart DateEnd Date Rm Goldman [facility] [address] [place] [address] RkkvtutjLmlgjbarg52/6/20 Mony Adler APRN-RE ETCHER [address] [place] [address] [place] [address] APNAnesthesiology11/16/20Team MemberRelationshipSpecialtyStart End Stef Argueta MD [address] [place] [address] Referring PhysicianFamily Medicine08/10/23 Suzi Bates DO [address] [place] [address] Referring PhysicianNeurology08/10/23Team MemberRelationshipSpecialtyStart DateEnd Date Stef Argueta MD [address] [place] [address] Referring PhysicianFamily Medicine08/10/23 Suzi Bates DO [address] [place] [address] Referring PhysicianNeurology08/10/23Team MemberRelationshipSpecialtyStart DateEnd Date Rm Goldman, DARRYLS [address] [place] [address] FuizdwrcLocuurntn37/6/20 Mony Adler, LEATHER CARVER-RE ETCHER [address] [place] [address] APNAnesthesiology11/16/20Team MemberRelationshipSpecialtyStart DateEnd Date Amy Farooq NP [address] [place] [address] PCP - FFS [facility]11/16/23 Stef Argueta MD [address] [place] [address] Referring PhysicianFamily Medicine08/10/23 Suzi Bates DO [address] [place] [address] Referring PhysicianNeurology08/10/23Team MemberRelationshipSpecialtyStart DateEnd Date Amy Farooq NP [address] [place], [place] PCP - FFS [facility]11/16/23 Stef Argueta MD [address] [place] [address] Referring PhysicianFamily Medicine08/10/23 Suzi Bates DO [address] [place] [address] Referring PhysicianNeurology08/10/23Team MemberRelationshipSpecialtyStart DateEnd Date Amy Farooq NP [address] [place] [address] PCP - FFS [facility]05/18/24 Stef Argueta MD [address] [place] [address] Referring PhysicianFamily Medicine08/10/23 Suzi Bates DO [address] [address] Referring PhysicianNeurology08/10/23Team MemberRelationshipSpecialtyStart DateEnd Date Amy Farooq NP [address] [place] [address] PCP - FFS [facility]05/18/24 Stef Argueta MD [address] [place] [address] Referring PhysicianFamily Medicine08/10/23 Suzi Bates DO [address] [place] [address] Referring PhysicianNeurology08/10/23Team MemberRelationshipSpecialtyStart DateEnd Date Rm Goldman DDS [address] [place] [address] VpzsbxvbWjughwfoe76/6/20 Mony Adler, LEATHER CARVER-RE ETCHER [address] [place] [address] APNAnesthesiology11/16/20 Moo Olsen DMD, MD [address] [place] [address] PhysicianOral & Maxillofacial Surgery08/20/24 MemberRelationshipSpecialtyStart DateEnd Date Rm Goldman DDS [address] [place] [address] CzlltklsWktgpmfyd36/6/20 Mony Adler APRN-CNP [address] [place] [address] [place] [address] APNAnesthesiology11/16/20 Moo Olsen DMD, MD [address] [place] [address] PhysicianOral & Maxillofacial Surgery08/20/24 MemberRelationshipSpecialtyStart DateEnd Date Rm Goldman DDS [address] [place] [address] EqwsvljdBvkhtvsxk78/6/20 Mony Adler APRN-RE ETCHER [address] [place] [address] [place] [address] APNAnesthesiology11/16/20 Moo Olsen DMD, MD [address] [place] [address] PhysicianOral & Maxillofacial Surgery08/20/24 MemberRelationshipSpecialtyStart DateEnd Date Rm Goldman DDS [address] [place] [address] SzausqliSqrufkhft21/6/20 Mony Adler APRN-RE ETCHER [address] [place] [address] [place] [address] APNAnesthesiology11/16/20 Moo Olsen DMD, MD [address] [place] [address] PhysicianOral & Maxillofacial Surgery08/20/24Team MemberRelationshipSpecialtyStart DateEnd Date Rm Goldman DDS [address] [place] [address] CntqhwdvFcbkbxkyb43/6/20 Mony Adler APRN-RE ETCHER [address] [place] [address] [place] [address] APNAnesthesiology11/16/20 Moo Olsen DMD, MD [address] [place] [address] PhysicianOral & Maxillofacial Surgery08/20/24Te MemberRelationshipSpecialtyStart DateEnd Date Rm Goldman DDS [address] [place] [address] BrxuuxihRzxxzhsiw15/6/20 Mony Adler APRN-CNP [address] [place] [address] [place] [address] APNAnesthesiology11/16/20Team MemberRelationshipSpecialtyStart DateEnd Date Rm Goldman DDS [address] [place] [address] FpqzbzooDhkgqpciu42/6/20 Mony Adler APRN-RE ETCHER [address] [place] [address] [place] [address] APNAnesthesiology11/16/20Te MemberRelationshipSpecialtyStart DateEnd Date Rm Goldman DDS [address] [place] [address] SqqzyryoEmeppocch08/6/20 Mony Adler APRN-RE ETCHER [address] [place] [address] [place] [address] APNAnesthesiology11/16/20 Moo Olsen DMD, MD [address] [place] [address] PhysicianOral & Maxillofacial Surgery08/20/24Te MemberRelationshipSpecialtyStart DateEnd Date Rm Goldman DDS [address] [place] [address] VgrlamlvCzavtouwt56/6/20 Mony Adler APRN-RE ETCHER [address] [place] [address] [place] [address] APNAnesthesiology11/16/20 Moo Olsen DMD, MD [address] [place] [address] PhysicianOral & Maxillofacial Surgery08/20/24Te MemberRelationshipSpecialtyStart DateEnd Date Rm Goldman DDS [address] [place] [address] BvsuxewxVkuyrdham49/6/20 Mony Adler APRN-RE ETCHER [address] [place] [address] [place] [address] APNAnesthesiology11/16/20 Moo Olsen DMD, MD [address] [place] [address] PhysicianOral & Maxillofacial Surgery08/20/24 Reason for Visit (unrecogniz ed section and content) ReasonOnset DateCommentsPre-surgical Nnrsjoqtki79/21/2024D adult dental restorations 01/07 under [place] at [facility]. PAT completed - consents obtained. MARY RN spoke to Cassidy, confirmed NPO except water only until 0900 (Cassidy stated pt does not like and will not drink water), [facility] address, and 1100 arrival time SpecialtyDiagnoses / ProceduresReferred By ContactReferred To ContactAmbulatory Surgery Diagnoses Caries Caries [K02.9] Procedures ANESTHESIA, INTRAORAL PROC, W/BX; NOS UNLISTED PROCEDURE, DENTOALVEOLAR STRUCTURES DENTAL RESTORATIONS Stacie Torres DMD [address] [place] [address] [facility] [address] [place] [address] Phone: [phone] Referral IDStatusReasonStart DateExpiration DateVisits RequestedVisits [id number] DateCommentsReferral needs placed for OS 4ReasonOnset NzqmCvnftyskGuocxy58/18/2024ReasonCommentsSeizuresReason Onset DateCommentsmessage to vzsyjogx69/31/2025ReasonOnset DateCommentsPAT 10/28/2024Surgery informationReasonOnset DateCommentsCancel Appointment 11/02/2024ReasonOnset DateCommentspt requested call07/13/2024 Continuous Active and Recently Administ ered Medications (unrecognized section and content) Medication Order// lactated ringers iv infusion Intravenous, at 125 mL/hr, CONTINUOUS, Starting on Thu01/08/24 at 1130, Until Discontinued * 1130 (Due) lactated ringers iv infusion Intravenous, at 125 mL/hr, CONTINUOUS, Starting on Thu01/08/24 at 1200, Until Discontinued * 1200 (Due) Medication Order// naloxone (NARCAN) 0.4 MG/ML injection 0.4 mg, [...] medication administration and blood draw, PACU Now Medication Order/ midazolam (VERSED) 2 MG/ML oral syrup (COMPLETED) 1 dose, Starting on Thu01/08/24 at 1333, Until Thu01/08/24 at 1339 * 1339 (Given - Provider: Janie Coraes RN) Medication Order/ ceFAZolin Sodium (ANCEF) 2,000 mg in sterile water for injection 10 mL IV push (COMPLETED) 2,000 mg, Intravenous, ONCE, 1 dose, On Thu01/18/25 at 1230 * 1219 (IV New Bag - Provider: LUIS ANTONIO Hernandez) chlorhexidine (PERIDEX) 0.12 % oral solution 15 mL, Swish & Spit, ONCE, 1 dose, On Thu01/18/25 at 1230, Pre-op * 1230 (Due) Medication Order// lactated ringers iv infusion Intravenous, at 75 mL/hr, CONTINUOUS, Starting on Thu01/18/25 at 1230, Until Discontinued * 1230 (Due) Medication Order/02/ acetaminophen (TYLENOL) tablet 650 mg, Oral, ONCE PRN, Starting on Thu01/18/25 at 1125, Until Thu01/18/25 at 1724, Mild Pain (pain score 1,2,3), PACU Now BUPivacaine (PF) (MARCAINE) 20 mL, lidocaine-EPINEPHrine (XYLOCAINE) 1 %- 1:[id number] 20 mL, dose administered = 8 mL given 40 mL sc injection (CANCELED) PRN, Starting on Thu01/18/25 at 1226, Until Thu01/18/25 at 1304 * 1226 (Given - Provider: Robin De La Cruz DDS - Comment: mouth prior to extractions) * 1232 (Given - Provider: Robin De La Cruz DDS) gelatin adsorbable (SURGIFOAM) 100 sponge (CANCELED) PRN, Starting on Thu01/18/25 at 1233, Until Thu01/18/25 at 1304, Intra-op * 1233 (Given - Provider: Robin De La Cruz DDS - Comment: to extraction sites) HYDROmorphone [...] Thu01/18/25 at 1125, Until Discontinued, Respiratory Rate LessThan 8 for adults and less than 12 for Peds or for suspected overdose, PACU Now ondansetron (ZOFRAN) 4 MG/2ML injection 4 mg, Intravenous, PACU ONCE PRN, Starting on Thu01/18/25 at 1125, Until Thu01/18/25 at 1724, Nausea,Vomiting, PACU Now oxyCODONE immediate release tablet 10 [...] BE BASED ON THE PRIMARY CLINICAL RECORDS. [facility]. provides no warranty or guarantee of the accuracy or completeness of information in this document.
--- OUTSIDE RECORDS SUMMARY | 2025-03-29 07:13 | XMS_ITS | Clinical Summary ---
Author Organization [facility] Address [address] [place] [address] Care Team Providers Care Full Time Babysitter Name Role Phone Rm Goldman DDS Unavailable [phone] Mony Hraris TECHNICAL BUSINESS SYSTEMS ANALYST-SHOE PLANNER Unavailable [phone] Moo Olsen DMD, MD Unavailable [phone] Source Comments The following information is NOT included in Care Everywhere downloads:Psychiatric notes, ECG results, Cardiac Rehab notes, Pulmonary Function notes, data from [facility] (includes but not limited toPregnancy data,audiograms, eye exams, pre-surgical evaluation notes, well-child exam data).[facility] Allergies Active AllergyReactionsCriticalityNoted XcxsKoxwevdhLjdfyyxeaitckgy23/09/2024 Chloral Hfggbpb6212/25/20238120Eipzlsspoxs73/24/2011 Other Reaction(s): Unknown Zyiudejc75/09/2024 Medications MedicationSigDispense QuantityRefillsLast FilledStart DateEnd DateStatus divalproex (DEPAKOTE) 500 MG enteric coated tablet Indications:take one tablet in the morning and 2 tablets at bedtimeTake 500 mg by mouth 2 times daily Indications: take one tablet in the morning and 2 tablets at bedtime. 1 tab am and 2 tab hsActive divalproex (DEPAKOTE SPRINKLE) 125 MG CSDR capsule Indications:take 2 capsules by mouth every morningTake 125 mg by mouth Indications: take 2 capsules by mouth every morning.Active famotidine (PEPCID) 20 MG tablet Take 20 mg by mouth daily.Active levETIRAcetam (KEPPRA) 500 MG tablet Take 500 mg by mouth 2 times daily.Active levothyroxine (SYNTHROID) 75 MCG tablet Take 75 mcg by mouth daily. Take at 4 pmActive loratadine (CLARITIN) 10 MG tablet Take 10 mg by mouth daily.Active pregabalin (LYRICA) 75 MG capsule Take 75 mg by mouth 3 times daily.Active montelukast (SINGULAIR) 10 MG tablet Take 10 mg by mouth daily.Active naltrexone 50 MG tablet Indications:take 2 tablets twice a dayTake 50 mg by mouth daily Indications: take 2 tablets twice a day.Active Oyster Shell 500 MG TABS Take by mouth.Active senna (SENNA-TABS) 8.6 MG TABS tablet Indications:daily at 0800 and 2000Take 1 Tablet by mouth Indications: daily at 0800 and 2000.Active VITAMIN D ORAL Take 1,000 Units by mouth daily.Active cloNIDine (CATAPRES) 0.1 MG tablet Take 0.1 mg by mouth 2 times daily.Active medroxyPROGESTERone (Depo-Provera) 150 MG/ML injection Inject 150 mg into the muscle once.Active ondansetron (Zofran) 4 MG tablet Take 4 mg by mouth every 12 hours as needed for Nausea.Active chlorhexidine (Peridex) 0.12 % oral solution Swish mouth with 15 mL by mouth 2 times daily. DO NOT SWALLOW 473 mL ctive Cariprazine HCl (Vraylar) 6 MG CAPS capsule 10/22/2023ctive guaifenesin-dextromethorphan (MUCINEX DM) 30-600 MG tablet 07/28/2023ctive Promethazine HCl (PHENERGAN INJ) Take by mouth.09/10/2023ctive risperiDONE (RISPERDAL) 3 MG tablet 07/07/2024tive D3-1000 25 MCG (1000 UT) CAPS capsule 07/07/2024tive divalproex ER (DEPAKOTE ER) 250 MG ER tablet at bedtime.07/07/2024tive divalproex ER (DEPAKOTE ER) 500 MG ER tablet 07/07/2024tive Linzess 290 MCG CAPS capsule Take 290 mcg by mouth daily.06/27/2024tive lurasidone (LATUDA) 80 MG tablet Take 1 Tablet by mouth.12/07/2023ctive pantoprazole (PROTONIX) 40 MG tablet 12/07/2023ctive CARBAMAZEPINE ORAL Take by mouth.09/10/2023ctive Calcium Carb-Cholecalciferol (Oyster Shell Calcium w/D) 500-5 MG-MCG TABS 4Active cyproheptadine (PERIACTIN) 4 MG tablet Take 4 mg by mouth at bedtime.Active ibuprofen (MOTRIN) 600 MG tablet Take 1 Tablet by mouth every 6 hours as needed for Pain. 30 Tablet 5Active chlorhexidine (Peridex) 0.12 % oral solution Take 15 mL by mouth 2 times daily. 480 mL tive acetaminophen (TYLENOL) 500 MG tablet Take 1 Tablet by mouth every 4 hours as needed for Pain or Fever. 30 Tablet 5Active Active Problems ProblemNoted DateDiagnosed DateDisruptive behavior rooumjzg61/26/2025Impulse control ugsxxwcl95/26/8075Eadeyfubwlvy78/26/2025utism spectrum disorder 07/13/2024ipolar 1 eqmigmwz63/26/2025hronic dental caries extending to pulp 07/13/20240187Twiybi84/23/2024Hypothyroidism, qfuscvnpxob86/08/2023Epilepsy, unspecified, not intractable, without status qxtihpmmtyp04/13/2022ental decay 09/13/2020 Overview (09/13/2020): Added automatically from request for surgery [id number] Dental ibexua5702/09/2019 Overview (02/09/2019): Added automatically from request for surgery [id number] Hamstring /25/2011Crouched gait12/09/20101237Hkwsqfuc62/30/2008Other bipolar ccgnmtqo68/23/2008Severe intellectual disability with intelligence quotient 20 to 3405 Overview (07/13/2024): Mental retardation Seizure /23/2008Examination following ptagchp7310/04/2002Cerebral palsy 06/17/2002 Encounters DateTypeDepartmentCare FqbrApulamlyvub45/10/2025 10:10 AM EDTOffice Visit [facility] [address] [place] [address] Moo Olsen DMD, MD 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)01/18/2025 12:28 PM EDT - 01/18/2025 1:51 PM EDTSurgery [facility] [address] [facility] [address] [place] [address] Moo Olsen DMD, MD EXTRACTION, TEETH: #12,#13,#1409/07/2024 12:13 PM EDTAnesthesia Event [facility] [address] [facility] [address] [id number] Ryan Kc MD Mathialagan, Samantha, MD 01/18/2025 10:51 AM EDT - 01/18/2025 1:52 PM EDTHospital Encounter [facility] [address] [address] Moo Olsen DMD, MD 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) Discharge Disposition: Discharge to Home01/17/2025Telephone [facility] Pre-Admission Testing [address] [place] [address] Marco Brower RN 01/17/2025Telephone [facility] Pre-Admission Testing [address] [place] [address] Marco Brower RN 01/09/2025Telephone [facility] Pre-Admission Testing [address] [place] [address] Susie Dumont RN 01/04/2025 9:30 AM EDTNurse Visit [facility] [address] [id number] Radha Evans RN Pre-op evaluation (Primary Dx)from Last 3 Months Immunizations ImmunizationAdministration DatesNext DueCOVID-19 Vaccine (12+ yrs, Moderna) mRNA, spike protein, LNP, pres. free, 50 mcg/0.5 mL dose (RAE=877)03/03/2024 COVID-19 Vaccine (12+ yrs, Pfizer) mRNA, spike protein, LNP, pres. free, 30 mcg/0.3mL dose, adam-sucrose (MAH=399)03/04/2023TP (CVX=01)07/29/1990, 05/29/1987,1985,1985,1985Hib, unspecified formulation (CVX=17) 07/02/1987Influenza, injectable, quadrivalent, preservative (SXO=044)03/11/2017 Influenza, injectable, quadrivalent, preservative free (MTG=711)03/13/2021, 02/22/2020,03/11/2019,02/24/2018,03/08/2015,03/23/2014Influenza, injectable, trivalent, preservative (IEP=049)02/20/2016,03/15/2013,03/10/2012,01/29/2011 Influenza, injectable, trivalent, preservative free (UHX=546)03/03/2024 Influenza, novel S2X7-85, injectable, preservative-free (BBI=958)04/04/2009 Influenza, unspecified formulation (CVX=88)03/04/2023,03/05/2022Influenza, whole virus (CVX=16)03/13/2010,03/09/2008MMR, Yavermb-Zsgqv-Pohgaxk (CVX=03)11/15/1986 Meningococcal conjugate (MCV4,Men-ACWY), Menactra (MCV4P) (RZC=269)10/01/2006 Pfizer Monovalent (12+ yrs) SARS-COV-2 (COVID-19) vaccine, mRNA, spike protein, LNP, pres. free, 30mcg/0.3mL dose (MQM=315)06/19/2020,1Polio, oral (OPV) (CVX=02)07/29/1990,11/03/1987,05/29/1987,06/28/1986,1985Td (adult), unspecified formulation (RUP=190)09/02/2000Tdap (XKC=676)08/14/2022,08/31/2012 Social History Tobacco UseTypesPacks/DayYears UsedDateSmoking Tobacco: NeverSmokeless Tobacco: NeverAlcohol UseStandard Drinks/WeekCommentsNot Currently0 (1 standard drink = 0.6 oz pure alcohol)Substance UseTypesUse/WeekCommentsNot Currently CommentsNoSex and Gender InformationValueDate RecordedSex Assigned at BirthNot on fileLegal BqlIwnoax36/04/2012 12:15 PM ESTGender IdentityNot on fileSexual OrientationNot on file Last Filed Vital Signs Vital SignReadingTime TakenCommentsBlood Ecqbhylq986/9109 1:30 PM EDT Flbbm1242 1:30 PM LESTqpwleqdubt38.1 ??C (97 ??F)01/18/2025 1:30 PM EDT Respiratory Gexr2304 1:30 PM EDTOxygen Xjkohvotjk87%01/18/2025 1:30 PM EDTInhaled Oxygen Concentration--Nshveb92.2 kg (146 lb)01/18/2025 11:26 AM EDT Lkivwx633.3 cm (4' 10 )01/18/2025 11:26 AM EDTBody Mass Index30.5109 11:26 AM EDT Plan of Treatment Health MaintenanceDue DateLast DoneCommentsDental Neytvccpjdl07/20/1986 Mammography (shared decision-making, age 35-39)1985TSH1985HIV Test 2000Hepatitis C Mkcoxrrj54/20/2004Hepatitis A (HAV) Vaccine (optional start 19+ years)2004Hepatitis B (HBV) Vaccine (1 of 3 - 19+ 3-dose series) 2004Pap Smear2006HPV Vaccine (optional start 27-45 years)2012 Dental Oral Exam/ental X-Ray: Xveuxlmvb92/24// COVID-19 Vaccine (2024- season)/, 03/04/2023, 08/14/2022, Additional history existsInfluenza Vaccine (#1)/, 03/04/2023, 03/05/2022, Additional history existsTetanus (Td or Tdap) Booster , 08/31/2012, 09/02/2000Shingles (RZV) Vaccine (1 of 2) 2035Tdap DgjjzupMklxinyms78/30/2023, 08/31/2012MammographyDiscontinued Pneumococcal Vaccine(s)Aged OutNo longer eligible based on patient's age to complete this topic Procedures Procedure NamePriorityDate/TimeAssociated DiagnosisCommentsANESTHESIA, INTRAORAL PROC, W/BX; NOSRoutine cepdjfnzs66/03/2025 12:01 PM EDT Caries 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 Case Notes 08/08 VM-1 SP 08/05 S/W JIMENEZ FROM from [facility] to see if she can GD pt.sp; PT In a Developmental facility sp Special Needs PT in a home 1.5 away from [place] [phone] sp At [facility] [phone]-PLEASE CALL [phone] TO GIVE ARRIVAL TIME UNLISTED PROCEDURE, DENTOALVEOLAR STRUCTURESRoutine tmgqythzw80/03/2025 12:01 PM EDT Caries 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 Case Notes 08/08 VM-1 SP 08/05 S/W JIMENEZ FROM from [facility] to see if she can GD pt.sp; PT In a Developmental facility sp Special Needs PT in a home 1.[place] away from [place] [phone] sp At [facility] [phone]-PLEASE CALL [phone] TO GIVE ARRIVAL TIME URINE HCG-IN ZWLNEABwzokuz50/03/2025 11:45 AM EDT COMPREHENSIVE WLDIXpfebeq16/23/2024 12:00 AM EDTfrom Last 3 Months or Most Recently Relevant to Health Maintenance Results * URINE HCG-IN OFFICE (01/18/2025 11:45 AM EDT)ComponentValueRef RangeTest MethodAnalysis TimePerformed AtPathologist SignatureUrine Beta hCGNegative NegativePositive Internal ControlPositivePositiveNegative Internal Control NegativeNegativeSpecimen (Source)Anatomical Location / LateralityCollection Method / VolumeCollection TimeReceived TimeUrineURINE SPECIMEN / Unknown 01/18/2025 11:45 AM EDT Narrative Authorizing ProviderResult TypeResult StatusForrest Quick DMDEC BACK OFFICE LABS Final Result from Last 3 Months Insurance * Guarantor: Jermaine Sarabia TypeRelation to PatientDate of BirthPhone Billing AddressPersonal/TpavpgGzjo30/20/1986 [facility] [address] [place] [address] * Guarantor: Jermaine Sarabia TypeRelation to PatientDate of BirthPhone Billing AddressPersonal/OofhkeCjwi73/20/1986 [facility] [address] [place] [address] * Guarantor: Jermaine Sarabia TypeRelation to PatientDate of BirthPhone Billing MxunxtfOpmqgeoknhpafViuv48/20/1986 [facility] [address] [place] [address] * Guarantor: Jermaine Sarabia TypeRelation to PatientDate of BirthPhone Billing AddressDental RjcyqdChjz29/20/1986 [facility] [address] [place] [address] Care Teams Team MemberRelationshipSpecialtyStart DateEnd Date Rm Goldman DDS [address] [place] [address] WohxcwuvQkgwolzuh05/6/20 Mony Adler APRN-SHOE PLANNER [address] [place] [address] APNAnesthesiology11/16/20 Moo Olsen DMD, MD [address] [place] [address] PhysicianOral & Maxillofacial Surgery08/20/24
--- OUTSIDE RECORDS SUMMARY | 2025-03-29 07:13 | XMS_ITS | Clinical Summary ---
Author Organization [facility] Address [address] [place] [address] Care Team Providers Care Paint Stockman Name Role Phone Stef Argueta MD Unavailable [phone] Suzi Bates DO Unavailable [phone] Amy Farooq NP Unavailable [phone] Allergies Active AllergyReactionsCriticalityNoted DateCommentsChloral Bjtiduo6712/25/2023 Mzrrgiyh16/09/7752Ulxxtcdqaxfngls06/09/6735DnmsgcmbzpmIfmepyt03/24/2011 Medications MedicationSigDispense QuantityRefillsLast FilledStart DateEnd DateStatus carBAMazepine (TEGretol) 200 MG tablet Active sennosides (Senokot) 8.6 MG tablet Active lurasidone (Latuda) 80 MG tablet Take 1 tablet by mouth in the evening. Take with meals12/07/2023ctive Linzess 290 MCG capsule Take 1 capsule by mouth At least 30 minutes before the first meal of the day on an empty stomach once a day.11/17/2023ctive naltrexone (Depade) 50 MG tablet Active montelukast (Singulair) 10 MG tablet Active acetaminophen (Tylenol) 325 MG tablet Active loratadine (Claritin) 10 MG tablet Active bisacodyl (Dulcolax) 10 MG suppository Active pregabalin (Lyrica) 75 MG capsule Active lamoTRIgine (LaMICtal) 100 MG tablet Active famotidine (Pepcid) 20 MG tablet Active Dextromethorphan-guaiFENesin (Mucus Relief DM) 30-600 MG tablet sustained- release 12 hour 07/28/2023ctive alendronate (Fosamax) 35 MG tablet Take 1 tablet by mouth 1 (one) time per week In the morning, at least 30 min before first food, beverage, or medication of dayActive levothyroxine (Synthroid, Levoxyl) 112 MCG tablet Active levothyroxine (Synthroid, Levoxyl) 75 MCG tablet Active busPIRone (Buspar) 15 MG tablet Active cabergoline (Dostinex) 0.5 MG tablet Active Calcium Carb-Cholecalciferol (Oyster Shell Calcium w/D) 500-5 MG-MCG tablet 12/07/2023ctive Vraylar 6 MG capsule 10/22/2023ctive chlorhexidine (Peridex) 0.12 % solution Active clonazePAM (KlonoPIN) 0.5 MG tablet Active doxazosin (Cardura) 4 MG tablet Active levETIRAcetam (Keppra) 500 MG tablet Active medroxyPROGESTERone (Depo-Provera) 150 MG/ML injection Active metoprolol tartrate (Lopressor) 100 MG tablet Active ondansetron (Zofran) 4 MG tablet Active paliperidone (Invega) 3 MG 24 hr tablet Active pantoprazole (ProtoNix) 40 MG EC tablet 12/07/2023ctive sertraline (Zoloft) 100 MG tablet Active traZODone (Desyrel) 100 MG tablet Active divalproex (Depakote ER) 500 MG 24 hr tablet Take 500 mg by mouth Daily Do not crush, chew, or split. Take one in the am and 1 1/2 at bedtimeActive Active Problems ProblemNoted DateDiagnosed DateLate effect of adverse effect of drug, medical or biological ezyjnkqyu43/16/7002Ccqvfgsw93/30/2008Weight loss03/16/2008Cerebral palsy10/08/2007Seizure adwzjkrb69/23/2008Mental rqfiivuurm64/23/2008 Overview (12/30/2023): Mental retardation Other bipolar asjypszx77/23/2008Other conduct fwytrkxfy86/23/2008 Immunizations ImmunizationAdministration DatesNext NiuSZP6207/29/1990,05/29/1987,1985, 1985,1985HiB, yaolmgcyjod51/15/1988Influenza Whole03/13/2010, 03/09/2008Influenza, Wqdnzxpimpw56/18/2023,03/05/2022Influenza, injectable, jabjwbhejeqo47/25/2017Influenza, injectable, quadrivalent, preservative free 03/13/2021,02/22/2020,03/11/2019,02/24/2018,03/08/2015,03/23/2014Influenza, seasonal, vfffzghrig42/05/2016,03/15/2013,03/10/2012,01/29/2011MMR11/15/1986 Meningococcal PVH6I2210/01/2006Novel bijlyqbwi-I1G1-46, preservative-free 04/04/2009OPV07/29/1990,11/03/1987,05/29/1987,06/28/1986,08/25/19852534FXJL-YEK-7 (COVID-19) vaccine, mRNA, spike protein, LNP, PF, adam-sucrose, 30 mcg/0.3 mL 03/04/2023Td (adult), itetqcliudr23/18/8110Uvhx51/30/2023,08/31/2012 Social History Tobacco UseTypesPacks/DayYears UsedDateSmoking Tobacco: NeverSmokeless Tobacco: Never Tobacco Cessation:Counseling Given: Not Answered CommentsUnknownSex and Gender InformationValueDate RecordedSex Assigned at BirthNot on fileLegal DhwVooixu69/15/2023 6:35 PM EDTGender IdentityNot on fileSexual OrientationNot on file Last Filed Vital Signs Vital SignReadingTime TakenCommentsBlood Yxgpiyrz722/78009/29/2024 10:46 AM EDT Pulse--Temperature--Respiratory Rate--Oxygen Saturation--Inhaled Oxygen Concentration--Vambmc73.8 kg (145 lb)09/29/2024 10:46 AM MNBKknkvw125.3 cm (4' 10 )09/29/2024 10:46 AM EDTBody Mass Index30.31009/29/2024 10:46 AM EDT Plan of Treatment Health MaintenanceDue DateLast DoneCommentsPap Smear2006Cervical Cancer Ycdccjrqg52/20/2016HPV/Zenbad6906/06/2015COVID-19 Vaccine ( season) 51, 03/13/2021, 06/19/2020, Additional history existsInfluenza Vaccine (#1)51, 03/04/2023, 03/05/2022, Additional history existsPneumococcal Vaccine: Pediatrics (0 to 5 Years) and At-Risk Patients (6 to 64 Years)Aged OutNo longer eligible based on patient's age to complete this topic Insurance [address] [place] [address] [address] [place] [address] Care Teams Team MemberRelationshipSpecialtyStart DateEnd Amy Farooq NP PCP - FFS [facility]05/18/24 Stef Argueta MD [address] [place] [address] Referring PhysicianFamily Medicine08/10/23 Suzi Bates DO [address] [place] [address] Referring PhysicianNeurology08/10/23
[2025-03-29 07:35] LABS: Hematocrit 35.4 % (36.0-48.0); Hemoglobin 11.4 g/dL (12.0-16.0); Immature Granulocytes Abs Auto 0.01 10^3/uL (0.00-0.03); Immature Granulocytes Pct Auto 0.2 % (0.0-0.5); Lymphocytes Absolute Auto 3.5 10^3/uL (1.2-3.8); Mean Corpuscular HGB Conc 32.2 g/dL (29.9-35.2); Mean Corpuscular Hemoglobin 31.3 pg (26.7-34.0); Mean Corpuscular Volume 97.3 fL (81.0-99.0); Platelet Count 290 10^3/uL (150-450); Red Blood Count 3.64 10^6/uL (4.20-5.40); White Blood Count 6.6 10^3/uL (4.0-11.0)
[2025-03-29 08:22] LABS: Alanine Aminotransferase 22 U/L (14-59); Albumin Globulin Ratio 0.9; Albumin Level 3.2 g/dL (3.4-5.0); Alkaline Phosphatase 37 U/L (46-116); Anion Gap 10.9; Aspartate Amino Transferase 15 U/L (15-37); Blood Urea Nitrogen 9.0 mg/dL (7.0-18.0); Calcium 8.8 mg/dL (8.5-10.1); Carbon Dioxide 30.2 mmol/L (21.0-32.0); Chloride 104 mmol/L (98-107); Estimated GFR (African America >60 (>=60 mL/min/1.73m^2); Estimated GFR (Non-African Ame >60 (>=60 mL/min/1.73m^2); Globulin 3.7 g/dL; Glucose 84 mg/dL (74-106); Potassium 4.1 mmol/L (3.5-5.1); Sodium 141 mmol/L (136-145); Thyroid Stimulating Hormone 0.751 uIU/mL (0.358-3.740); Total Protein 6.9 g/dL (6.4-8.2)
[2025-03-29 09:15] LABS: Iron 57.0 ug/dL (50.0-170.0)
[2025-03-30 08:09] LABS: Vitamin B12 470 pg/mL (232-1245)
== END 2025-03-29 07:11 | disposition home or self-care (01) ==
LOC: LAB 07:10
PROVIDERS: PCP Family Medicine; Visit Provider Family Medicine
DX: Z79.899 Other long term (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 (principal); G40.909 Epilepsy, unspecified, not intractable, without status epilepticus; M85.88 Other specified disorders of bone density and structure, other site; K59.00 Constipation, unspecified; E03.9 Hypothyroidism, unspecified; R10.13 Epigastric pain; D64.9 Anemia, unspecified; K29.70 Gastritis, unspecified, without bleeding; F90.9 Attention-deficit hyperactivity disorder, unspecified type
CPT/HCPCS: 36415; 80053; 82607; 83540; 84439; 84443; 85025

== ENCOUNTER 2025-05-03 10:41 | Outpatient (REF) | payer MEDICAID, SELFPAY ==
--- OUTSIDE RECORDS SUMMARY | 2025-05-04 10:45 | XMS_ITS | Clinical Summary ---
Author Organization [facility] Address [address] [place] [address] Care Team Providers Care Emulsification Operator Name Role Phone Rm Goldman DDS Unavailable [phone] Mony Harris FURNACE UNLOADER-INDUSTRIAL RELATIONS COUNSELOR Unavailable [phone] Moo Olsen DMD, MD Unavailable [phone] Source Comments The following information is NOT included in Care Everywhere downloads:Psychiatric notes, ECG results, Cardiac Rehab notes, Pulmonary Function notes, data from [facility] [employer] (includes but not limited toPregnancy data,audiograms, eye exams, pre-surgical evaluation notes, well-child exam data).[facility] Allergies Active AllergyReactionsCriticalityNoted KzjxXqvxabjlSbrfwkawrprtzzs24/09/2024 Chloral Pdzmtvk3412/25/20235411Rvjkjzigmxz07/24/2011 Other Reaction(s): Unknown Uokonens28/09/2024 Medications MedicationSigDispense QuantityRefillsLast FilledStart DateEnd DateStatus divalproex [...] by mouth 2 times daily. 480 mL 5Active acetaminophen (TYLENOL) 500 MG tablet Take 1 Tablet by mouth every 4 hours as needed for Pain or Fever. 30 Tablet 5Active Active Problems ProblemNoted DateDiagnosed DateDisruptive behavior rtguztsy74/26/2025Impulse control [place]12/26/8116Ublbeopmaxcv31/26/2025utism spectrum disorder 07/13/2024ipolar 1 hloiptta21/26/2025hronic dental caries extending to pulp 07/13/20244264Fvfwan03/23/2024Hypothyroidism, eerwavbefqd54/08/2023Epilepsy, unspecified, not intractable, without status mqoorrviacg63/13/2022ental decay 09/13/2020 Overview (09/13/2020): Added automatically from request for surgery [id number] Dental vphmbk4202/09/2019 Overview (02/09/2019): Added automatically from request for surgery [id number] Hamstring geaysdpiy17/25/2011Crouched gait12/09/20103894Zamxizvy95/30/2008Other bipolar htadtiol67/23/2008Severe intellectual disability with intelligence quotient 20 to 3405 Overview (07/13/2024): Mental retardation Seizure xbpygoru96/23/2008Examination following qiqgota6110/04/2002Cerebral palsy 06/17/2002 Immunizations ImmunizationAdministration DatesNext DueCOVID-19 Vaccine (12+ yrs, Moderna) mRNA, spike protein, LNP, pres. free, 50 mcg/0.5 mL dose (NPY=556)03/03/2024 COVID-19 Vaccine (12+ yrs, Pfizer) mRNA, spike protein, LNP, pres. free, 30 mcg/0.3mL dose, adam-sucrose (IGF=506)3DTP (CVX=01)07/29/1990, 05/29/1987,1985,1985,1985Hib, unspecified formulation (CVX=17) 07/02/1987Influenza, injectable, quadrivalent, preservative (AGH=295)03/11/2017 Influenza, injectable, quadrivalent, preservative free (NQD=066)03/13/2021, 02/22/2020,03/11/2019,02/24/2018,03/08/2015,03/23/2014Influenza, injectable, trivalent, preservative (UZN=196)02/20/2016,03/15/2013,03/10/2012,01/29/2011 Influenza, injectable, trivalent, preservative free (KCU=638)03/03/2024 Influenza, novel G8W9-21, injectable, preservative-free (FOM=140)04/04/2009 Influenza, unspecified formulation (CVX=88)03/04/2023,03/05/2022Influenza, whole virus (CVX=16)03/13/2010,03/09/2008MMR, Fztvdca-Iagog-Nqnqppt (CVX=03)11/15/1986 Meningococcal conjugate (MCV4,Men-ACWY), Menactra (MCV4P) (ISB=464)10/01/2006 Pfizer Monovalent (12+ yrs) SARS-COV-2 (COVID-19) vaccine, mRNA, spike protein, LNP, pres. free, 30mcg/0.3mL dose (TEE=155)06/19/2020,1Polio, oral (OPV) (CVX=02)07/29/1990,11/03/1987,05/29/1987,06/28/1986,1985Td (adult), unspecified formulation (CKA=560)09/02/2000Tdap (ZZA=343)08/14/2022,08/31/2012 Social History Tobacco UseTypesPacks/DayYears UsedDateSmoking Tobacco: NeverSmokeless Tobacco: NeverAlcohol UseStandard Drinks/WeekCommentsNot Currently0 (1 standard drink = 0.6 oz pure alcohol)Substance UseTypesUse/WeekCommentsNot Currently CommentsNoSex and Gender InformationValueDate RecordedSex Assigned at BirthNot on fileLegal MolHzegnz76/04/2012 12:15 PM ESTGender IdentityNot on fileSexual OrientationNot on file Last Filed Vital Signs Vital SignReadingTime TakenCommentsBlood Ovrjgexa011/9109 1:30 PM EDT Jvhfz1741 1:30 PM MZXVzkbchtzetj57.1 ??C (97 ??F)01/18/2025 1:30 PM EDT Respiratory Gmbp0279 1:30 PM EDTOxygen Fdrbsncwyg74%01/18/2025 1:30 PM EDTInhaled Oxygen Concentration--Ehzgqf94.2 kg (146 lb)01/18/2025 11:26 AM EDT Wvuuax652.3 cm (4' 10 )01/18/2025 11:26 AM EDTBody Mass Index30.5109 11:26 AM EDT Plan of Treatment Health MaintenanceDue DateLast DoneCommentsDental Blnvzirjmlx73/20/1986 Mammography (shared decision-making, age 35-39)1985TSH1985HIV Test 2000Hepatitis C Ixnhfxjh76/20/2004Hepatitis A (HAV) Vaccine (optional start 19+ years)2004Hepatitis B (HBV) Vaccine (1 of 3 - 19+ 3-dose series) 2004Pap Smear2006HPV Vaccine (optional start 27-45 years)2012 Dental Oral Exam/ental X-Ray: Minrbndrx54/ COVID-19 Vaccine (2024- season), 03/04/2023, 08/14/2022, Additional history existsInfluenza Vaccine (#1), 03/04/2023, 03/05/2022, Additional history existsTetanus (Td or Tdap) Booster , 08/31/2012, 09/02/2000Shingles (RZV) Vaccine (1 of 2) 2035Tdap HjneaftPpkuyfetd00/30/2023, 08/31/2012MammographyDiscontinued Pneumococcal Vaccine(s)Aged OutNo longer eligible based on patient's age to complete this topic Procedures Procedure NamePriorityDate/TimeAssociated DiagnosisCommentsCOMPREHENSIVE EXAM Dckcbzt4901/08/2024 12:00 AM EDTfrom Last 3 Months or Most Recently Relevant to Health Maintenance Insurance * Guarantor: Jermaine Sarabia TypeRelation to PatientDate of BirthPhone Billing AddressPersonal/OpcrllXeek60/20/1986 [facility] [address] [place] [address] * Guarantor: Jermaine Sarabia TypeRelation to PatientDate of BirthPhone Billing AddressPersonal/GvyoloKmyt50/20/1986 [facility] [address] [place] [address] * Guarantor: Jermaine Sarabia TypeRelation to PatientDate of BirthPhone Billing HadfzqtXlqhndkquhatkPgxl18/20/1986 [facility] [address] [place] [address] * Guarantor: No FloridalmaelizabethAccount TypeRelation to PatientDate of BirthPhone Billing AddressDental WbgrlpUhgx62/20/1986 [facility] [address] [place] [address] Care Teams Team MemberRelationshipSpecialtyStart DateEnd Date Rm Goldman, KASSIDY [address] [place] [address] FwvrqhiuZjilegsci54/6/20 Mony Adler, GONZALES-INDUSTRIAL RELATIONS COUNSELOR [address] [place] [address] APNAnesthesiology11/16/20 Moo Olsen DMD, MD [address] [place] [address] PhysicianOral & Maxillofacial Surgery08/20/24
--- OUTSIDE RECORDS SUMMARY | 2025-05-04 10:45 | XMS_ITS | Clinical Summary ---
Author Organization [facility] Address [address] [place], [place] [address] Care Team Providers Care Public Health Registrar Name Role Phone Chaim Restrepo DO Primary Care Provider + [phone] Allergies Active AllergyReactionsCriticalityNoted DateCommentsSeasonal AllergiesUnknown 11/08/2010 Medications [...] at bedtime. 2 tabs by mouth at nkktrdr4401/24/2014 Active montelukast (SINGULAIR) 10 mg ORAL tablet [...] Problems ProblemNoted DateDiagnosed DateCerebral palsy06/26/2015Crouched gait12/09/2010 Hamstring xykeizrcn64/25/2011Follow-up examination following iqzyzjz0610/04/2002 Other specified infantile cerebral palsy06/17/2002 Family History Medical HistoryRelationCommentshydrocephalus [Other]OtherRelationStatusComments Other Social History Tobacco UseTypesPacks/DayYears UsedDateSmoking Tobacco: NeverSmokeless Tobacco: NeverAlcohol UseStandard Drinks/WeekCommentsNo0 (1 standard drink = 0.6 oz pure alcohol)Area Deprivation IndexAnswerDate RecordedNational Score (1-100), lower number is lower riskNot on file04/23/2020State Score (1-10), lower number is lower riskNot on file04/23/2020Data from: https://www.neighborhoodatlas.medicine.[facility]/. Last address used for calculationNot on file04/23/2020CommentsNoSex and Gender Information ValueDate RecordedSex Assigned at BirthNot on fileLegal BokIcqtyr82/02/2012 8:59 AM ESTGender IdentityNot on fileSexual OrientationNot on fileOccupationIndustry Job Start DateJob End DateworkshopNot on fileNot on fileNot on file Last Filed Vital Signs Vital SignReadingTime TakenCommentsBlood Darwgzbz025/7209 1:45 PM EDT Cbnxx040302/09/2014 1:45 PM DUMZgvogdmtent74 ??C (96.8 ??F)02/09/2014 1:45 PM EDT Respiratory Snvj9193 1:45 PM EDTOxygen Wbbixnmzfl42%02/09/2014 1:45 PM EDTInhaled Oxygen Concentration--Lslqdf20.8 kg (158 lb 4.6 oz)02/09/2014 8:12 AM UOCTscnuy767.4 cm (5')02/09/2014 8:12 AM EDTBody Mass Index30.9102/09/2014 8:12 AM EDT Plan of Treatment Health MaintenanceDue DateLast DoneCommentsAnxiety Fyjolyufc68/20/2004Depression Hzmjnbhuk22/20/2004HIV Tujqvakto46/20/2004Hepatitis C Dbyhehbxs76/20/2004 Hepatitis B Vaccine (1 of 3 - 19+ 3-dose series)2004Cervical Cancer Ywofmhysh64/20/2007HPV Vaccine (1 - 3-dose SCDM series)2012DTaP,Tdap,Td Vaccine (7 - Td or Tdap), 09/02/2000, 07/29/1990, Additional history existsCovid-19 Vaccine (2024- season)2025Influenza Vaccine (#1), 03/11/2017, 02/20/2016, Additional history exists Insurance [address] [place] [address] Advance Directives TypeDate RecordedPatient RepresentativeExplanationAdvance Directive(s)01/24/2014 2:15 PM Care Teams Team MemberRelationshipSpecialtyStart DateEnd Date Chaim Restrepo DO [address] [place] [id number] PCP - GeneralFamily Medicine05/21/23
--- OUTSIDE RECORDS SUMMARY | 2025-05-04 10:45 | XMS_ITS | Clinical Summary ---
Author Organization [facility] Address [address] [place] [address] Care Team Providers Care Manager Of Recruiting Name Role Phone Stef Argueta MD Unavailable [phone] Suzi Bates DO Unavailable [phone] Amy Farooq NP Unavailable [phone] Allergies Active AllergyReactionsCriticalityNoted DateCommentsChloral Uluywuy0412/25/2023 Ddzzoynn04/09/1533Xavpljepgzzssah25/09/9283HtexwlytdrfOfdozdc91/24/2011 Medications MedicationSigDispense QuantityRefillsLast FilledStart DateEnd DateStatus carBAMazepine [...] adverse effect of drug, medical or biological /16/5563Iwpdjisd72/30/2008Weight loss03/16/2008Cerebral palsy10/08/2007Seizure zazppava60/23/2008Mental wsccumqxej45/23/2008 Overview (12/30/2023): Mental retardation Other bipolar yktgtyta05/23/2008Other conduct tebihkdrl68/23/2008 Immunizations ImmunizationAdministration DatesNext ByvWNW2007/29/1990,05/29/1987,1985, 1985,1985HiB, tznlntygkif19/15/1988Influenza Whole03/13/2010, 03/09/2008Influenza, Alpdgwwduns13/18/2023,03/05/2022Influenza, injectable, thgvjqtquoku06/25/2017Influenza, injectable, quadrivalent, preservative free 03/13/2021,02/22/2020,03/11/2019,02/24/2018,03/08/2015,03/23/2014Influenza, seasonal, tvwhldhouh31/05/2016,03/15/2013,03/10/2012,01/29/2011MMR11/15/1986 Meningococcal ORU4Q3110/01/2006Novel sxjxsprol-Q9Q7-85, preservative-free 04/04/2009OPV07/29/1990,11/03/1987,05/29/1987,06/28/1986,08/25/19857184VPQB-LSW-0 (COVID-19) vaccine, mRNA, spike protein, LNP, PF, adam-sucrose, 30 mcg/0.3 mL 03/04/2023Td (adult), dnrewwjhnqd98/18/2947Cjrq84/30/2023,08/31/2012 Social History Tobacco UseTypesPacks/DayYears UsedDateSmoking Tobacco: NeverSmokeless Tobacco: Never Tobacco Cessation:Counseling Given: Not Answered CommentsUnknownSex and Gender InformationValueDate RecordedSex Assigned at BirthNot on fileLegal OnuLrjtus22/15/2023 6:35 PM EDTGender IdentityNot on fileSexual OrientationNot on file Last Filed Vital Signs Vital SignReadingTime TakenCommentsBlood Yuljffwq734/78009/29/2024 10:46 AM EDT Pulse--Temperature--Respiratory Rate--Oxygen Saturation--Inhaled Oxygen Concentration--Dgdkop14.8 kg (145 lb)09/29/2024 10:46 AM AUADfoiao285.3 cm (4' 10 )09/29/2024 10:46 AM EDTBody Mass Index30.31009/29/2024 10:46 AM EDT Plan of Treatment Health MaintenanceDue DateLast DoneCommentsPap Smear2006Cervical Cancer Xhvhifvmg15/20/2016HPV/Qdpnub2906/06/2015COVID-19 Vaccine ( season) , 03/04/2023, 08/14/2022, Additional history existsInfluenza Vaccine (#1)51, 03/04/2023, 03/05/2022, Additional history existsPneumococcal Vaccine: Pediatrics (0 to 5 Years) and At-Risk Patients (6 to 64 Years)Aged OutNo longer eligible based on patient's age to complete this topic Insurance [address] [place] [address] [address] [place] [address] Care Teams Team MemberRelationshipSpecialtyStart DateEnd Amy Farooq NP PCP - FFS [facility]05/18/24 Stef Argueta MD [address] [place] [address] Referring PhysicianFamily Medicine08/10/23 Suzi Bates DO [address] [place] [address] Referring PhysicianNeurology08/10/23
[2025-05-04 11:37] LABS: Glucose Urine UA NEGATIVE (NEGATIVE)
== END 2025-05-03 10:42 | disposition home or self-care (01) ==
LOC: LAB 10:41
PROVIDERS: PCP Family Medicine; Visit Provider Family Medicine
DX: R82.998 Other abnormal findings in urine (principal); R45.1 Restlessness and agitation; R41.82 Altered mental status, unspecified
CPT/HCPCS: 81003